=== PATIENT | male | born 1935 | race African-American/Black ===

== ENCOUNTER 2017-01-07 07:16 | Inpatient (IN) | payer OTHER, MEDICAID ==
--- NOTE | 2017-01-07 07:25 | DR.SOBA ---
HPI - Time Seen Time seen: 07:21 - Complaints Chief Complaint Doctors Comments: Patient reports that he is not feeling well can not explain what he means, just dont feel well. <LAKESHA WALSH - Last Filed: 01/07/17 08:10> PMH - PMH Past Medical History: Coronary Artery Disease, Hypertension, Dyslipidemia, Diabetes Past Surgical History: Yes Surgical History: CABG/Valve Surgery - Family History Family Medical History: Diabetes Mellitus, Cancer, [place], Hypertension - Social History Do you use any recreational Drugs:: No <LAKESHA WALSH - Last Filed: 01/07/17 08:10> ROS - Review of Systems Eyes: No Symptoms Reported ENTM: No Symptoms Reported Respiratoy: Short of Breath Cardiovascular: No Symptoms Reported Gastrointestinal/Abdominal: No Symptoms Reported Genitourinary: No Symptoms Reported Neurological: No Symptoms Reported Musculoskeletal: No Symptoms Reported Integumentary: No Symptoms Reported Hematologic/Lymphatic: No Symptoms Reported Endocrine: No Symptoms Reported Psychiatric: No Symptoms Reported All Other Systems: Reviewed and Negative <LAKESHA WALSH - Last Filed: 01/07/17 08:10> PE - General Limitations: No Limitations General Appearance: Alert, Anxious - Head Head Exam: Normal Inspection, Atraumatic - Eyes Eye exam: Normal Appearance, PERRL, EOMI - ENT ENT Exam: Normal Exam - Neck Neck Exam: Normal Inspection, Full ROM - Chest Chest Inspection: Normal Inspection - Respiratory Respiratory Exam: Normal Lung Sounds Bilat Respiratory Exam: Bilateral Clear to Auscultation - Cardiovascular Cardiovascular Exam: Regular Rate, Normal Rhythm, Systolic Murmur, +S2 - Abdominal Exam Abdominal Exam: Normal Inspection, Normal Bowel Sounds Abdominal Tenderness: negative: RUQ, RLQ, LUQ, LLQ, Epigastrium, Suprapubic, Diffuse, Mild, Moderate, Severe, Other - Extremities Extremities Exam: Normal Inspection - Back Back Exam: Normal Inspection, Full ROM - Neurologic Neurological Exam: Alert, Oriented X3, CN II-XII Intact - Psychiatric Psychiatric Exam: Normal Affect - Skin Skin Exam: Warm, Dry, Intact <LAKESHA WALSH - Last Filed: 01/07/17 08:10> Course - Consultation Called: 09:00 Call Returned: 09:50 Consultation Comments: case discussed admit to lower BP and diuresis. <ERIC ZHENG - Last Filed: 01/07/17 09:53> ROR - Labs Reviewed Result Diagrams: 01/07/17 07:48 01/07/17 07:48 - EKG Rate: 64 Rhythm: NSR, PVCs Block: RBBB Hypertrophy: LVH ST: Nonsp <MARCE,ERIC - Last Filed: 01/07/17 09:53> - Labs Reviewed Laboratory: WBC 9.1 X10^3/uL (3.6-10.0) 01/07/17 07:48 RBC 3.25 X10^6/uL (4.7-6.0) L 01/07/17 07:48 Hgb 9.8 g/dL (13.5-18.0) L 01/07/17 07:48 Hct 30.1 % (42.0-54.0) L 01/07/17 07:48 MCV 92.9 fL (80.0-100.0) 01/07/17 07:48 MCH 30.3 pg (27.0-34.0) 01/07/17 07:48 MCHC 32.6 g/dL (33.0-35.0) L 01/07/17 07:48 RDW 14.6 % (11.6-16.5) 01/07/17 07:48 Plt Count 145 X10^3/uL (150.0-450.0) L 01/07/17 07:48 MPV 9.4 fL (7.4-11.0) 01/07/17 07:48 Neut % 76.6 % (42.0-75.0) H 01/07/17 07:48 Lymph % 11.3 % (21.0-51.0) L 01/07/17 07:48 [place] % 8.5 % (0.0-13.0) 01/07/17 07:48 Eos % 3.0 % (0.9-2.9) H 01/07/17 07:48 Baso % 0.6 % (0.2-1.0) 01/07/17 07:48 Neut # 6.9 x10^3/uL (2.2-4.8) H 01/07/17 07:48 Lymph # 1.0 X10^3/uL (1.3-2.9) L 01/07/17 07:48 [place] # 0.8 x10^3/uL (0.3-0.8) 01/07/17 07:48 Eos # 0.3 x10^3/uL (0.0-0.2) H 01/07/17 07:48 Baso # 0.1 X10^3/uL (0.0-0.1) 01/07/17 07:48 Absolute Nucleated RBC 0.0 /100WBC 01/07/17 07:48 INR Target Range - 01/07/17 07:48 INR 1.05 (0.8-1.3) 01/07/17 07:48 PTT 28.9 SECONDS (22.9-36.5) 01/07/17 07:48 PTT Comment - 01/07/17 07:48 Sodium 143 mmol/L (136-145) 01/07/17 07:48 Corrected Sodium 144 mmol/L (136-145) 01/07/17 07:48 Potassium 3.8 mmol/L (3.5-5.1) 01/07/17 07:48 Chloride 107 mmol/L (98-107) 01/07/17 07:48 Carbon Dioxide 30.2 mmol/L (21-32) 01/07/17 07:48 BUN 20 mg/dL (7-18) H 01/07/17 07:48 Creatinine 1.45 mg/dL (0.70-1.30) H 01/07/17 07:48 Est GFR (MDRD) Af Amer 60 (>60) 01/07/17 07:48 Est GFR (MDRD) Non-Af 50 (>60) L 01/07/17 07:48 Glucose 162 mg/dL (65-99) H 01/07/17 07:48 Hemoglobin A1c 9.4 % (4.5-6.2) H 01/07/17 07:48 Calcium 9.0 mg/dL (8.5-10.1) 01/07/17 07:48 Corrected Calcium 10.0 mg/dL (8.5-10.1) 01/07/17 07:48 Phosphorus 3.5 mg/dL (2.6-4.7) 01/07/17 07:48 Magnesium 1.9 mg/dL (1.7-2.9) 01/07/17 07:48 Total Bilirubin 0.30 mg/dL (0.2-1.0) 01/07/17 07:48 AST 37 Units/L (15-37) 01/07/17 07:48 ALT 66 Units/L (12-78) 01/07/17 07:48 Alkaline Phosphatase 50 Units/L (46-116) 01/07/17 07:48 Creatine Kinase 154 Units/L (39-308) 01/07/17 07:48 CK-MB (CK-2) 3.2 ng/mL (0-4.0) 01/07/17 07:48 CK/CKMB % Calc 2.1 % (<4) 01/07/17 07:48 Troponin I 0.06 ng/mL (0-1.5) 01/07/17 07:48 B-Natriuretic Peptide 804 pg/mL (0-79) H* 01/07/17 07:48 Total Protein 6.7 g/dL (6.4-8.2) 01/07/17 07:48 Albumin 2.7 g/dL (3.4-5.0) L 01/07/17 07:48 Globulin 4.0 g/dL (2.5-4.5) 01/07/17 07:48 Albumin/Globulin Ratio 0.7 Ratio (1.1-2.1) L 01/07/17 07:48 (ERIC ZHENG) <LAKESHA WALSH - Last Filed: 01/07/17 08:10> <ERIC ZHENG - Last Filed: 01/07/17 09:53> - Diagnosis Discharge Problem: CHF (congestive heart failure) Qualifiers: Congestive heart failure type: unspecified congestive heart failure type Congestive heart failure chronicity: acute Qualified Code(s): I50.9 - Heart failure, unspecified - Discharge Plan Condition: Stable - Follow ups/Referrals Follow ups/Referrals: FRED CONRAD [Primary Care Provider] - 3 days - Instructions
[2017-01-07] MEDS ORDERED: CATAPRES TAB 0.2 MG PO ONE (07:29)
[2017-01-07] MEDS ORDERED: CATAPRES TAB 0.2 MG ONE (07:30)
--- NOTE | 2017-01-07 07:59 | RAD ---
HISTORY: Dyspnea Study: Chest two-view Comparison: October 13, 2016 Findings: The patient is status post median sternotomy and CABG. The heart is enlarged. Congestive heart failu re is present in the form of interstitial pulmonary edema. No alveolar edema, alveolar infiltrates o r pleural effusions are identified. The bony thorax is unremarkable with the exception of superior h umeral migration on the right suggestive of chronic rotator cuff disease. IMPRESSION: Cardiomegaly with congestive heart failure in the form of interstitial pulmonary edema Reported By:
[2017-01-07] MEDS ORDERED: LASIX IVP ONE ×2 (08:13→08:14)
[2017-01-07 08:15] LABS: MAGNESIUM 1.9 mg/dL (1.7-2.9); PHOSPHORUS 3.5 mg/dL (2.6-4.7)
[2017-01-07 08:16] LABS: HEMOGLOBIN A1C 9.4 % (4.5-6.2)
[2017-01-07 08:21] LABS: BASOPHILS # (AUTO) 0.1 X10^3/uL (0.0-0.1); BASOPHILS % (AUTO) 0.6 % (0.2-1.0); CARBON DIOXIDE 30.2 mmol/L (21-32); CREATININE 1.45 mg/dL (0.70-1.30); EOSINOPHILS # (AUTO) 0.3 x10^3/uL (0.0-0.2); HEMATOCRIT 30.1 % (42.0-54.0); HEMOGLOBIN 9.8 g/dL (13.5-18.0); LYMPHOCYTES % (AUTO) 11.3 % (21.0-51.0); MEAN CORPUSCULAR HEMOGLOBIN 30.3 pg (27.0-34.0); MEAN CORPUSCULAR HGB CONC 32.6 g/dL (33.0-35.0); MEAN CORPUSCULAR VOLUME 92.9 fL (80.0-100.0); MEAN PLATELET VOLUME 9.4 fL (7.4-11.0); MONOCYTES # (AUTO) 0.8 x10^3/uL (0.3-0.8); MONOCYTES % (AUTO) 8.5 % (0.0-13.0); NEUTROPHILS # (AUTO) 6.9 x10^3/uL (2.2-4.8); NEUTROPHILS % (AUTO) 76.6 % (42.0-75.0); PLATELET COUNT 145 X10^3/uL (150.0-450.0); RED BLOOD COUNT 3.25 X10^6/uL (4.7-6.0); RED CELL DISTRIBUTION WIDTH 14.6 % (11.6-16.5); TROPONIN I 0.06 ng/mL (0-1.5); WHITE BLOOD COUNT 9.1 X10^3/uL (3.6-10.0)
[2017-01-07 08:24] LABS: ALBUMIN 2.7 g/dL (3.4-5.0); CKMB % 2.1 % (<4); CREATINE KINASE MB 3.2 ng/mL (0-4.0); TOTAL PROTEIN 6.7 g/dL (6.4-8.2)
[2017-01-07] MEDS ORDERED: APRESOLINE TAB 25 MG PO ONE (09:47)
[2017-01-07] MEDS ORDERED: ULTRAM PO PRN (10:04)
[2017-01-07] MEDS ORDERED: [UNRECOGNIZED DRUG - OTHER] SC SCH (10:15)
[2017-01-07] MEDS: COREG TAB 25 MG PO SCH ×2 (11:39→21:25)
[2017-01-07] MEDS: PROCARDIA XL PO SCH (11:39)
[2017-01-07] MEDS ORDERED: [UNRECOGNIZED DRUG - OTHER] PO SCH (14:00)
[2017-01-07] MEDS: APRESOLINE TAB 25 MG PO SCH ×2 (14:35→21:26)
[2017-01-07 15:12] VITALS: BMI 25.7
[2017-01-07] MEDS: HumaLOG SC PRN ×2 (17:55→21:24)
[2017-01-07] MEDS: PROSCAR PO SCH (21:25)
[2017-01-07 22:22] LABS: CKMB % 1.7 % (<4); CREATINE KINASE MB 2.6 ng/mL (0-4.0); TROPONIN I 0.07 ng/mL (0-1.5)
[2017-01-08 05:27] LABS: ALBUMIN 2.4 g/dL (3.4-5.0); CALCIUM 8.9 mg/dL (8.5-10.1); COR CA(FOR HYPOALB) 10.2 mg/dL (8.5-10.1); CREATININE 1.52 mg/dL (0.70-1.30)
[2017-01-08] MEDS: APRESOLINE TAB 25 MG PO SCH ×3 (05:30→21:08)
[2017-01-08 05:37] LABS: BASOPHILS # (AUTO) 0.1 X10^3/uL (0.0-0.1); BASOPHILS % (AUTO) 0.8 % (0.2-1.0); EOSINOPHILS # (AUTO) 0.2 x10^3/uL (0.0-0.2); EOSINOPHILS % (AUTO) 2.7 % (0.9-2.9); HEMATOCRIT 26.7 % (42.0-54.0); HEMOGLOBIN 8.8 g/dL (13.5-18.0); LYMPHOCYTES # (AUTO) 1.2 X10^3/uL (1.3-2.9); LYMPHOCYTES % (AUTO) 14.6 % (21.0-51.0); MEAN CORPUSCULAR HEMOGLOBIN 30.3 pg (27.0-34.0); MEAN CORPUSCULAR HGB CONC 32.9 g/dL (33.0-35.0); MEAN CORPUSCULAR VOLUME 92.3 fL (80.0-100.0); MEAN PLATELET VOLUME 10.2 fL (7.4-11.0); MONOCYTES # (AUTO) 0.8 x10^3/uL (0.3-0.8); MONOCYTES % (AUTO) 10.1 % (0.0-13.0); NEUTROPHILS # (AUTO) 5.7 x10^3/uL (2.2-4.8); NEUTROPHILS % (AUTO) 71.8 % (42.0-75.0); PLATELET COUNT 137 X10^3/uL (150.0-450.0); RED BLOOD COUNT 2.89 X10^6/uL (4.7-6.0); RED CELL DISTRIBUTION WIDTH 14.3 % (11.6-16.5); WHITE BLOOD COUNT 7.9 X10^3/uL (3.6-10.0)
[2017-01-08] MEDS ORDERED: K-RIDER 10 MEQ/NS 100 ML 10 MEQ/100 ML BAG IV PRN (05:40)
[2017-01-08] MEDS ORDERED: K-LYTE EFFERVESCENT PO PRN (05:40)
[2017-01-08] MEDS ORDERED: POTASSIUM CHLORIDE LIQ 20 MEQ UDC PO PRN (05:40)
[2017-01-08] MEDS: HumaLOG SC PRN ×4 (05:52→21:10)
--- NOTE | 2017-01-08 06:24 | RAD ---
HISTORY: CHF, shortness of breath Study: Single-view chest, done portably Comparison: January 07, 2017 Findings: The cardiac monitoring electrodes are noted on the chest. There are changes of thoracotomy with medi an sternotomy sutures present. The trachea is midline. There is cardiomegaly with pulmonary vascular congestion. There is a pattern of CHF bilaterally, with aeration in both lungs has improved. A smal l perihilar focus of alveolar edema may be present. No pleural fluid or pneumothorax is seen. IMPRESSION: Improvement in the CHF pattern. Reported By:
[2017-01-08] MEDS: K-DUR TAB 20 MEQ PO PRN (06:33)
[2017-01-08] MEDS ORDERED: [UNRECOGNIZED DRUG - OTHER] PO SCH (09:00)
[2017-01-08] MEDS: COREG TAB 25 MG PO SCH ×2 (10:00→21:08)
[2017-01-08] MEDS: ASPIRIN EC 81 MG PO SCH (10:01)
[2017-01-08] MEDS: CLARITIN PO SCH (10:01)
[2017-01-08] MEDS: PROCARDIA XL PO SCH (10:01)
[2017-01-08] MEDS: LANTUS SC SCH (10:01)
[2017-01-08] MEDS ORDERED: MORPHINE SULFATE INJ 2 MG IVP PRN (10:32)
[2017-01-08] MEDS: LASIX IVP SCH ×2 (11:27→21:11)
--- NOTE | 2017-01-08 14:23 | DR.H&P ---
H&P - History & Physical for Day of: H&P Date: 01/07/17 - Chief Complaint Chief Complaint: SHORTNESS OF BREATH - Allergies Allergies/Adverse Reactions: Allergies Allergy/AdvReac Type Severity Reaction Status Date / Time Lisinopril Allergy Verified 01/07/17 07:17 - History of Present Illness History of Present Illness: IS A 81 YEAR OLD PATIENT OF WHO PRESENTED TO THE ER WITH COMPLAINTS OF NOT FEELING WELL. PATIENT REPORTED SHORTNESS OF BREATH AND IS NOTED WITH LABORED RESPIRATIONS ON ARRIVAL TO ER. MILD RESPIRATORY DISTRESS IS NOTED. ON AUSCULTATION, LUNG BASES ARE NOTED WITH RHONCHI AND WHEEZING. PATIENT HAS NO HISTORY OF HEART FAILURE. IN ER, LABS, XRAY , AND EKGS WERE OBTAIN AND REPORT THE FOLLOWING: CBC WNL EXCEPT HGB/HCT 9.8/ 30.1. CMP WNL EXCEPT BUN/CREAT 20/1.45, GLUCOSE 162, HGB 9.4, BNP 804, ALBUMIN 2.7, PT/INR WNL. CHEST XRAY REPORTS CARDIOMEGALY WITH CHR IN THE FOR OF INTERSTITIAL PULMONARY EDEMA. EKG REPORTS SINUS RHYTHM WITH RATE OF 64. WE WILL ADMIT PATIENT FOR FURTHER EVALUATION AND TREATMENT. WE WILL START PATIENT ON IV LASIX, FLUID RESTRICTION, DAILY WEIGHT, STRICT I&O, AND MONITOR LABS AND XRAYS. - Past Medical History Past Medical History: Arthritis, Coronary Artery Disease, Diabetes, Dyslipidemia , GERD, Hypertension Additional Medical History: Prostate Cancer, Bronchitis, Constipation - Past Surgical History Surgical History: CABG/Valve Surgery - Family History Family Medical History: Diabetes Mellitus, Cancer, [place], Hypertension - Social History Does patient currently use any type of tobacco product: No Have you used tobacco products in the last 12 months: No Type of Tobacco Use: Cigarettes How many years tobacco product used: 30 Does any household member use tobacco: No Alcohol Use: Occasionally Drug Use: None - Medications Home Medications: Aspirin [Aspirin Adult Low Dose] 1 tab PO DAILY 01/07/17 [History Confirmed 05/18] Hydralazine HCl [Hydralazine HCl 50 mg] 1 tab PO TID 01/07/17 [History Confirmed 01/07/17] Insulin Glargine (Lantus) [LANTUS INSULIN 10 ML VIAL *] 30 units SC DAILY [History Confirmed 01/07/17] Insulin Lispro (Human) [Humalog] 1 unit SC .MILTONLINATHANIELSCALE 01/07/17 [History Confirmed 01/07/17] Tramadol HCl [ULTRAM 50 MG *] 1 tab PO TID PRN 01/07/17 [History Confirmed 01/07] - Review of Systems Constitutional: Weakness, Malaise Eyes: denies: Pain, Vision Change, Conjunctivae Inflammation, Eyelid Inflammation, Redness, Other ENT: denies: Ear Pain, Ear Discharge, Nose Pain, Nose Discharge, Nose Congestion , Mouth Pain, Mouth Swelling, Throat Pain, Throat Swelling, Other Respiratory: Shortness of Breath, SOB with Excertion, Wheezing Cardiovascular: Edema. denies: Chest Pain, See HPI, Palpitations, Orthopnea, Paroxysmal Noc. Dyspnea, Light Headedness, Other Gastrointestinal: No Symptoms Reported Genitourinary: No Symptoms Reported. denies: See HPI, Dysuria, Frequency, Incontinence, Hematuria, Retention, Other Musculoskeletal: No Symptoms Reported. denies: Shoulder Pain, Arm Pain, Back Pain, Hand Pain, Leg Pain, Foot Pain, Neck Pain, Other Skin: No Symptoms Reported. denies: See HPI, Rash, Lesions, Jaundice, Bruising , Wound, Ecchymosis, Other Neurological: Weakness. denies: No Symptoms Reported, See HPI, Numbness, Incoordination, Change in Speech, Confusion, Seizures, Other - Physical Exam Vital Signs: Temperature 98.5 F Pulse Rate [Left Brachial] 72 Pulse Rate 78 Respiratory Rate 20 Blood Pressure [Right Arm] 193/88 Blood Pressure [Left Arm] 184/62 O2 Sat by Pulse Oximetry 96 Oriented: Normal, Time, Person, Place. negative: Not Oriented, Unable to test, Other Eyes: Normal. negative: Blurred Vision, Diplopia, Discharge, Pain, Redness, Photophobia, Other Ear: Normal. negative: Right, Left, Swelling, Ecchymosis, Hemotypanum, Abrasion , Laceration Nose: Normal. negative: Injected, Discharge, Blood, Other Throat: Normal. negative: Tonsillar Hypertrophy, Red, Exudate, Dry, Other Respiratory: Rhonchi Throughout, Wheezes Throughout Cardiovascular: Normal. negative: Tachycardia, Bradycardia, Irregular, S3, S4, Systolic, Diastolic, Murmur, Edema, Other : Normal. negative: Dysuria, Hematuria, Frequency, Discharge, Testicular Pain , Bleeding, , Other Auscultation: Bowel Sounds: Normal. negative: Bruit, Absent, Increased, Decreased, High Pitched, Other Palpation: Normal. negative: Spleen Enlarged, Liver Enlarged, Mass Pulsatile, Other Tenderness: Normal. negative: Diffuse, RUQ, RLQ, LUQ, LLQ, Epigastric, Periumbilical, Suprapubic, Mild, Moderate, Severe, Rebound, Guarding, Rigidity, Other Skin: Normal. negative: Decreased Turgur, Rash, Papular, Macular, Maculopapular , Vesicular, Pustular, Petechial, Red, Tender, Hot, Diaphoresis, Wound, Bruising , Ecchymosis, Other Musculoskeletal: Swelling, Instability Psychiatric: Normal. negative: Anxiety, Depression, Agitation, Other Mood Description: Calm, Appropriate. negative: Angry, Apathetic, Depressed, Fearful, Flat, Happy, Hostile, Sad, Suspicious, Withdrawn, Anxious, Labile Affect: Normal. negative: Angry, Anxious, Depressed, Flat, Hysterical, Quiet, Violent Speech Pattern: Clear, Appropriate - Assessment/Plan (1) CHF (congestive heart failure) Qualifiers: Congestive heart failure type: unspecified congestive heart failure type Congestive heart failure chronicity: acute Qualified Code(s): I50.9 - Heart failure, unspecified Status: Acute Plan: ADMIT, START ON IV LASIX, FLUID RESTRICTION, DAILY WEIGHT, STRICT I&O, AND MONITOR LABS AND XRAYS. (2) Hyperlipidemia Qualifiers: Hyperlipidemia type: H Status: Acute (3) Hypertension Qualifiers: Hypertension type: H Status: Acute (4) Diabetes mellitus Qualifiers: Diabetes mellitus type: D Diabetes mellitus complication status: D Diabetes mellitus complication detail: D Diabetic retinopathy severity: D Proliferative retinopathy type: P Diabetes mellitus macular edema: D Diabetes mellitus skilled nursing insulin use: D Laterality: L Chronic kidney disease stage: C Status: Chronic (5) Coronary artery disease Qualifiers: Coronary Disease-Associated Artery/Lesion type: C [place] vs. transplanted heart: N Associated angina: A Status: Acute (6) GERD (gastroesophageal reflux disease) Qualifiers: Esophagitis presence: E Status: Acute
--- NOTE | 2017-01-08 16:11 | PCM.PROG ---
Progress Note - Progress Note for Day of Date: 01/08/17 - Subjective Subjective: PATIENT CONTINUES WITH SHORTNESS OF BREATH AT REST. PATIENT HAS RECEIVED TWO DOSES OF IV LASIX YESTERDAY, ALONG WITH FLUID RESTRICTION, STRICT I &O, AND DAILY WEIGHT. PATIENT REPORTS HE DOESN'T FEEL WELL THIS MORNING. HE CONTINUES ON SUPPLEMENTAL OXYGEN. ON AUSCULTATION, LUNGS ARE NOTED WITH WHEEZING THROUGHOUT. CBC WNL EXCEPT: H/H 8.8/26.7, PLT COUNT 137. CMP WNL EXCEPT: POTASSIUM 3.3, CHL 109, BUN/CREAT 24/1.52, GFR 47, GLUCOSE 187, TOT PROTEIN 6.0, ALBUMIN 2.4. CHEST XRAY REPORTS IMPROVEMENT IN CHF PATTERN. AN ECHO IS SCHEDULED FOR TODAY. EKG: SINUS RHYTHM, RBBB, RATE 87. WE WILL START ALBUMIN IV, POTASSIUM PROTOCOL, AND BIPAP. WE WILL CONTINUE IV LASIX AND FOLLOW UP IN AM WITH LABS AND CHEST XRAY. - Past Medical Family Social History Past Med/Fam/Surg Hx: No changes since H&P Allergies: Allergies Lisinopril Allergy (Verified 01/07/17 07:17) - Review of Systems ROS: No change since H&P - Vital Signs and I&O's Vital Signs: Temperature 98.5 F Pulse Rate [Left Brachial] 72 Pulse Rate 78 Respiratory Rate 20 Blood Pressure [Right Arm] 193/88 Blood Pressure [Left Arm] 184/62 O2 Sat by Pulse Oximetry 96 Intake and Output: Intake & Output 01/06/17 01/07/17 01/08/17 01/09/17 11:59 11:59 11:59 11:59 Intake Total 500 Output Total 425 Balance 75 - Physical Exam Oriented: Normal, Time, Person, Place. negative: Not Oriented, Unable to test, Other Eyes: Normal. negative: Blurred Vision, Diplopia, Discharge, Pain, Redness, Photophobia, Other Ear: Normal. negative: Right, Left, Swelling, Ecchymosis, Hemotypanum, Abrasion , Laceration Nose: Normal. negative: Injected, Discharge, Blood, Other Throat: Normal. negative: Tonsillar Hypertrophy, Red, Exudate, Dry, Other Respiratory: Generalized, Wheezes Cardiovascular: Normal. negative: Tachycardia, Bradycardia, Irregular, S3, S4, Systolic, Diastolic, Murmur, Edema, Other : Normal. negative: Dysuria, Hematuria, Frequency, Discharge, Testicular Pain , Bleeding, , Other Auscultation: Bowel Sounds: Normal. negative: Bruit, Absent, Increased, Decreased, High Pitched, Other Palpation: Normal. negative: Spleen Enlarged, Liver Enlarged, Mass Pulsatile Tenderness: Normal. negative: Diffuse, RUQ, RLQ, LUQ, LLQ, Epigastric, Periumbilical, Suprapubic, Mild, Moderate, Severe, Rebound, Guarding, Rigidity, Other Skin: Normal. negative: Decreased Turgur, Rash, Papular, Macular, Maculopapular , Vesicular, Pustular, Petechial, Red, Tender, Hot, Diaphoresis, Wound, Bruising , Ecchymosis, Other Musculoskeletal: Swelling, Instability Psychiatric: Normal Mood Description: Calm, Appropriate Affect: Normal Speech Pattern: Clear, Appropriate - Laboratory and Diagnostics Result Diagrams: 01/08/17 04:00 01/08/17 08:05 Labs: Laboratory WBC 7.9 X10^3/uL (3.6-10.0) 01/08/17 04:00 RBC 2.89 X10^6/uL (4.7-6.0) L 01/08/17 04:00 Hgb 8.8 g/dL (13.5-18.0) L 01/08/17 04:00 Hct 26.7 % (42.0-54.0) L 01/08/17 04:00 MCV 92.3 fL (80.0-100.0) 01/08/17 04:00 MCH 30.3 pg (27.0-34.0) 01/08/17 04:00 MCHC 32.9 g/dL (33.0-35.0) L 01/08/17 04:00 RDW 14.3 % (11.6-16.5) 01/08/17 04:00 Plt Count 137 X10^3/uL (150.0-450.0) L 01/08/17 04:00 MPV 10.2 fL (7.4-11.0) 01/08/17 04:00 Neut % 71.8 % (42.0-75.0) 01/08/17 04:00 Lymph % 14.6 % (21.0-51.0) L 01/08/17 04:00 [place] % 10.1 % (0.0-13.0) 01/08/17 04:00 Eos % 2.7 % (0.9-2.9) 01/08/17 04:00 Baso % 0.8 % (0.2-1.0) 01/08/17 04:00 Neut # 5.7 x10^3/uL (2.2-4.8) H 01/08/17 04:00 Lymph # 1.2 X10^3/uL (1.3-2.9) L 01/08/17 04:00 [place] # 0.8 x10^3/uL (0.3-0.8) 01/08/17 04:00 Eos # 0.2 x10^3/uL (0.0-0.2) 01/08/17 04:00 Baso # 0.1 X10^3/uL (0.0-0.1) 01/08/17 04:00 Absolute Nucleated RBC 0.0 /100WBC 01/08/17 04:00 INR Target Range - 01/07/17 07:48 INR 1.05 (0.8-1.3) 01/07/17 07:48 PTT 28.9 SECONDS (22.9-36.5) 01/07/17 07:48 PTT Comment - 01/07/17 07:48 Sodium 145 mmol/L (136-145) 01/08/17 04:00 Corrected Sodium 147 mmol/L (136-145) H 01/08/17 04:00 Potassium 3.7 mmol/L (3.5-5.1) 01/08/17 08:05 Chloride 109 mmol/L (98-107) H 01/08/17 04:00 Carbon Dioxide 28.0 mmol/L (21-32) 01/08/17 04:00 BUN 24 mg/dL (7-18) H 01/08/17 04:00 Creatinine 1.52 mg/dL (0.70-1.30) H 01/08/17 04:00 Est GFR (MDRD) Af Amer 57 (>60) L 01/08/17 04:00 Est GFR (MDRD) Non-Af 47 (>60) L 01/08/17 04:00 Glucose 187 mg/dL (65-99) H 01/08/17 04:00 Hemoglobin A1c 9.4 % (4.5-6.2) H 01/07/17 07:48 Calcium 8.9 mg/dL (8.5-10.1) 01/08/17 04:00 Corrected Calcium 10.2 mg/dL (8.5-10.1) H 01/08/17 04:00 Phosphorus 3.5 mg/dL (2.6-4.7) 01/07/17 07:48 Magnesium 1.9 mg/dL (1.7-2.9) 01/07/17 07:48 Total Bilirubin 0.20 mg/dL (0.2-1.0) 01/08/17 04:00 AST 34 Units/L (15-37) 01/08/17 04:00 ALT 61 Units/L (12-78) 01/08/17 04:00 Alkaline Phosphatase 45 Units/L (46-116) L 01/08/17 04:00 Creatine Kinase 155 Units/L (39-308) 01/07/17 21:43 CK-MB (CK-2) 2.6 ng/mL (0-4.0) 01/07/17 21:43 CK/CKMB % Calc 1.7 % (<4) 01/07/17 21:43 Troponin I 0.07 ng/mL (0-1.5) 01/07/17 21:43 B-Natriuretic Peptide 804 pg/mL (0-79) H* 01/07/17 07:48 Total Protein 6.0 g/dL (6.4-8.2) L 01/08/17 04:00 Albumin 2.4 g/dL (3.4-5.0) L 01/08/17 04:00 Globulin 3.6 g/dL (2.5-4.5) 01/08/17 04:00 Albumin/Globulin Ratio 0.7 Ratio (1.1-2.1) L 01/08/17 04:00 - Plan (1) CHF (congestive heart failure) Status: Acute Qualifiers: Congestive heart failure type: unspecified congestive heart failure type Congestive heart failure chronicity: acute Qualified Code(s): I50.9 - Heart failure, unspecified Plan: START BIPAP, CONTINUE IV LASIX, FLUID RESTRICTION, DAILY WEIGHT, STRICT I& O, AND MONITOR LABS AND XRAYS. (2) Hypertension Status: Chronic Qualifiers: Hypertension type: essential hypertension Qualified Code(s): I10 - Essential (primary) hypertension (3) Hyperlipidemia Status: Chronic Qualifiers: Hyperlipidemia type: mixed hyperlipidemia Qualified Code(s): E78.2 - Mixed hyperlipidemia (4) Diabetes mellitus Status: Chronic Qualifiers: Diabetes mellitus type: type 2 Diabetes mellitus complication status: without complication Diabetes mellitus complication detail: D Diabetic retinopathy severity: D Proliferative retinopathy type: P Diabetes mellitus macular edema: D Diabetes mellitus long-term insulin use: with long-term use Laterality: L Chronic kidney disease stage: C Qualified Code(s): E11.9 - Type 2 diabetes mellitus without complications; Z79.4 - detention (current) use of insulin (5) Coronary artery disease Status: Chronic Qualifiers: Coronary Disease-Associated Artery/Lesion type: C [place] vs. transplanted heart: N Associated angina: A (6) GERD (gastroesophageal reflux disease) Status: Chronic Qualifiers: Esophagitis presence: esophagitis presence not specified Qualified Code(s) : K21.9 - Gastro-esophageal reflux disease without esophagitis
[2017-01-08] MEDS: ALBUMIN HUMAN 25%- 100ML 100 ML IV SCH (17:34)
[2017-01-08 19:16] LABS: CKMB % 1.4 % (<4); TROPONIN I 0.05 ng/mL (0-1.5)
[2017-01-08] MEDS: PROSCAR PO SCH (21:08)
[2017-01-08] MEDS: SNACK - Diabetic Appropriate PO SCH (21:11)
[2017-01-09 00:49] LABS: CKMB % 1.5 % (<4); CREATINE KINASE MB 1.9 ng/mL (0-4.0); TROPONIN I 0.06 ng/mL (0-1.5)
[2017-01-09] MEDS: APRESOLINE TAB 25 MG PO SCH ×3 (05:54→21:29)
[2017-01-09 06:00] LABS: ASPARTATE AMINO TRANSFERASE < 6 Units/L (15-37); CREATINE KINASE MB < 1.0 ng/mL (0-4.0)
[2017-01-09 06:19] LABS: ALANINE AMINOTRANSFERASE 62 Units/L (12-78); ALBUMIN 2.7 g/dL (3.4-5.0); ALKALINE PHOSPHATASE 46 Units/L (46-116); BLOOD UREA NITROGEN 21 mg/dL (7-18); CALCIUM 9.2 mg/dL (8.5-10.1); CARBON DIOXIDE 28.7 mmol/L (21-32); CHLORIDE 109 mmol/L (98-107); CKMB % 0.9 % (<4); COR CA(FOR HYPOALB) 10.2 mg/dL (8.5-10.1); CREATINE KINASE 111 Units/L (39-308); SODIUM 147 mmol/L (136-145); TOTAL PROTEIN 6.3 g/dL (6.4-8.2); eGFR BLACK RACES 58 (>60); eGFR NON BLACK RACES 48 (>60)
[2017-01-09 06:24] LABS: BASOPHILS % (AUTO) 0.7 % (0.2-1.0); EOSINOPHILS # (AUTO) 0.2 x10^3/uL (0.0-0.2); EOSINOPHILS % (AUTO) 3.1 % (0.9-2.9); HEMATOCRIT 27.1 % (42.0-54.0); HEMOGLOBIN 9.1 g/dL (13.5-18.0); LYMPHOCYTES # (AUTO) 1.1 X10^3/uL (1.3-2.9); LYMPHOCYTES % (AUTO) 16.7 % (21.0-51.0); MEAN CORPUSCULAR HEMOGLOBIN 30.8 pg (27.0-34.0); MEAN CORPUSCULAR HGB CONC 33.5 g/dL (33.0-35.0); MEAN CORPUSCULAR VOLUME 91.9 fL (80.0-100.0); MEAN PLATELET VOLUME 9.9 fL (7.4-11.0); MONOCYTES # (AUTO) 0.6 x10^3/uL (0.3-0.8); MONOCYTES % (AUTO) 9.2 % (0.0-13.0); NEUTROPHILS # (AUTO) 4.8 x10^3/uL (2.2-4.8); NEUTROPHILS % (AUTO) 70.3 % (42.0-75.0); PLATELET COUNT 149 X10^3/uL (150.0-450.0); RED BLOOD COUNT 2.95 X10^6/uL (4.7-6.0); RED CELL DISTRIBUTION WIDTH 14.4 % (11.6-16.5); WHITE BLOOD COUNT 6.8 X10^3/uL (3.6-10.0)
[2017-01-09 06:49] LABS: GLUCOSE 109 mg/dL (65-99)
--- NOTE | 2017-01-09 07:25 | RAD ---
HISTORY: CHF, shortness of breath Study: Single-view chest, done portably Comparison: January 08, 2017 Findings: There are again changes of coronary artery bypass surgery with median sternotomy sutures, metallic m arkers and metallic sutures indicating coronary artery bypass grafts. Pulmonary vascular congestion and signs of CHF are again present, although improved. A small right perihilar focus of alveolar francisco ma is present. No pleural fluid is seen. Osseous structures are intact. IMPRESSION: Slight further improvement in the CHF/edema pattern. Reported By:
[2017-01-09] MEDS: PROCARDIA XL PO SCH (09:06)
[2017-01-09] MEDS: ALBUMIN HUMAN 25%- 100ML 100 ML IV SCH (09:06)
[2017-01-09] MEDS: COREG TAB 25 MG PO SCH ×2 (09:07→21:29)
[2017-01-09] MEDS: ASPIRIN EC 81 MG PO SCH (09:07)
[2017-01-09] MEDS: K-DUR TAB 20 MEQ PO PRN ×2 (09:07→13:15)
[2017-01-09] MEDS: LANTUS SC SCH (09:07)
[2017-01-09] MEDS: CLARITIN PO SCH (09:07)
[2017-01-09] MEDS: LASIX IVP SCH (10:56)
[2017-01-09] MEDS: HumaLOG SC PRN ×3 (13:15→21:30)
[2017-01-09] MEDS: SNACK - Diabetic Appropriate PO SCH (20:00)
[2017-01-09] MEDS: PROSCAR PO SCH (21:30)
--- NOTE | 2017-01-10 06:10 | RAD ---
HISTORY: Follow up congestive heart failure Study: Chest one view Comparison: January 09, 2017 Findings: The patient is status post median sternotomy. The heart is enlarged. Mild residual pulmonary venous congestion is present. However there is continued improvement in the picture of congestive heart fidelia lure. No acute alveolar infiltrates are identified. No definite pleural effusions are identified. [place] bsegmental atelectasis abuts the minor fissure on the right. The bony thorax is unremarkable. IMPRESSION: Cardiomegaly with continued improvement in congestive heart failure now with mild residual pulmonary venous congestion present. Reported By:
[2017-01-10 06:16] LABS: BASOPHILS # (AUTO) 0.1 X10^3/uL (0.0-0.1); BASOPHILS % (AUTO) 0.8 % (0.2-1.0); EOSINOPHILS # (AUTO) 0.2 x10^3/uL (0.0-0.2); EOSINOPHILS % (AUTO) 2.9 % (0.9-2.9); HEMATOCRIT 26.4 % (42.0-54.0); HEMOGLOBIN 8.9 g/dL (13.5-18.0); LYMPHOCYTES # (AUTO) 1.1 X10^3/uL (1.3-2.9); LYMPHOCYTES % (AUTO) 16.5 % (21.0-51.0); MEAN CORPUSCULAR HEMOGLOBIN 30.8 pg (27.0-34.0); MEAN CORPUSCULAR HGB CONC 33.6 g/dL (33.0-35.0); MEAN CORPUSCULAR VOLUME 91.7 fL (80.0-100.0); MEAN PLATELET VOLUME 9.8 fL (7.4-11.0); MONOCYTES # (AUTO) 0.6 x10^3/uL (0.3-0.8); MONOCYTES % (AUTO) 8.6 % (0.0-13.0); NEUTROPHILS # (AUTO) 4.6 x10^3/uL (2.2-4.8); NEUTROPHILS % (AUTO) 71.2 % (42.0-75.0); PLATELET COUNT 150 X10^3/uL (150.0-450.0); RED BLOOD COUNT 2.88 X10^6/uL (4.7-6.0); RED CELL DISTRIBUTION WIDTH 14.2 % (11.6-16.5); WHITE BLOOD COUNT 6.5 X10^3/uL (3.6-10.0)
[2017-01-10] MEDS: APRESOLINE TAB 25 MG PO SCH ×2 (06:25→12:59)
[2017-01-10 06:36] LABS: ALANINE AMINOTRANSFERASE 54 Units/L (12-78); ALBUMIN 2.9 g/dL (3.4-5.0); ALKALINE PHOSPHATASE 48 Units/L (46-116); ASPARTATE AMINO TRANSFERASE 28 Units/L (15-37); BLOOD UREA NITROGEN 22 mg/dL (7-18); CALCIUM 9.2 mg/dL (8.5-10.1); CARBON DIOXIDE 30.5 mmol/L (21-32); CHLORIDE 109 mmol/L (98-107); COR CA(FOR HYPOALB) 10.1 mg/dL (8.5-10.1); CREATININE 1.39 mg/dL (0.70-1.30); GLUCOSE 87 mg/dL (65-99); SODIUM 146 mmol/L (136-145); TOTAL PROTEIN 6.3 g/dL (6.4-8.2); eGFR BLACK RACES > 60 (>60); eGFR NON BLACK RACES 52 (>60)
[2017-01-10] MEDS: PROCARDIA XL PO SCH (09:50)
[2017-01-10] MEDS: COREG TAB 25 MG PO SCH (09:50)
[2017-01-10] MEDS: ASPIRIN EC 81 MG PO SCH (09:50)
[2017-01-10] MEDS: CLARITIN PO SCH (09:50)
[2017-01-10] MEDS: K-DUR TAB 20 MEQ PO PRN (09:50)
[2017-01-10] MEDS: ALBUMIN HUMAN 25%- 100ML 100 ML IV SCH (09:50)
[2017-01-10] MEDS: LANTUS SC SCH (09:51)
[2017-01-10] MEDS: HumaLOG SC PRN (12:57)
[2017-01-10] MEDS ORDERED: MILK OF MAGNESIA PO SCH (13:00)
[2017-01-10 13:30] LABS: ABG BASE EXCESS 7.4 mmol/L (-2.0-2.0)
[2017-01-10 13:31] LABS: ABG ALLEN TEST POS; ABG HCO3 31.2 mmol/L (22-26)
[2017-01-10 14:44] VITALS: BP 181/90
[2017-01-10] MEDS ORDERED: COLACE CAP 100 MG PO SCH (21:00)
[2017-01-11] MEDS ORDERED: MILK OF MAGNESIA PO SCH (09:00)
== END 2017-01-10 15:35 | disposition home or self-care (01) | DRG 293 ==
LOC: ER 07:26 → EDBD 10:05 → MED/SURG 10:05 → OBSVTOIN 01-09 10:00
PROVIDERS: ADMIT Internal Medicine; ATTEND Internal Medicine
DX: I50.9 Heart failure, unspecified (principal); I25.10 Atherosclerotic heart disease of native coronary artery without angina pectoris; I10 Essential (primary) hypertension; E78.2 Mixed hyperlipidemia; R06.02 Shortness of breath; R06.00 Dyspnea, unspecified; K21.9 Gastro-esophageal reflux disease without esophagitis; Z79.4 Long term (current) use of insulin; E11.65 Type 2 diabetes mellitus with hyperglycemia; R94.4 Abnormal results of kidney function studies
CPT/HCPCS: 36415; 36600; 71010; 71020; 80053; 82550; 82553; 82803; 83036; 83735; 83880; 84100; 84132; 84484; 85025; 85610; 85730; 93005; 93010; 93306; 94660; 94760; 96365; 96374; 99284; A4222; A4618; A7030; G8978; G8979; P9047; S0138; G0378; J1815; J1817; J1940

== ENCOUNTER → 2017-01-15 | Outpatient (CLI) | payer OTHER, MEDICAID ==
[2017-01-10 14:44] VITALS: BP 181/90
--- NOTE | 2017-01-15 12:25 | RAD ---
HISTORY: Chest tightness, shortness of breath Study: Chest two-view Comparison: January 10, 2017 Findings: the patient is status post median sternotomy and CABG. The heart is enlarged. No definite congestiv e heart failure is identified. No acute alveolar infiltrates or pleural effusions are identified. Th e lungs are hyperinflated. The bony thorax is unremarkable. IMPRESSION: Cardiomegaly without congestive heart failure Lungs hyperinflated but clear, consistent with COPD Reported By:
[2017-01-15 13:14] LABS: CALCIUM 9.3 mg/dL (8.5-10.1); CARBON DIOXIDE 29.4 mmol/L (21-32); COR CA(FOR HYPOALB) 10.1 mg/dL (8.5-10.1); CREATININE 1.55 mg/dL (0.70-1.30); TOTAL PROTEIN 6.7 g/dL (6.4-8.2)
== END | disposition home or self-care (01) | DRG 204 ==
LOC: RAD 12:01
PROVIDERS: ATTEND Physician Assistant Medical
DX: R06.02 Shortness of breath (principal); E87.79 Other fluid overload
CPT/HCPCS: 36415; 71020; 80053; 83880

== ENCOUNTER → 2017-03-20 | Outpatient (CLI) | payer MEDICAID, OTHER ==
[2017-03-20 10:01] LABS: BASOPHILS % (AUTO) 0.9 % (0.2-1.0); EOSINOPHILS # (AUTO) 0.2 x10^3/uL (0.0-0.2); EOSINOPHILS % (AUTO) 3.5 % (0.9-2.9); HEMATOCRIT 26.9 % (42.0-54.0); LYMPHOCYTES # (AUTO) 1.1 X10^3/uL (1.3-2.9); LYMPHOCYTES % (AUTO) 21.4 % (21.0-51.0); MEAN CORPUSCULAR HEMOGLOBIN 29.4 pg (27.0-34.0); MEAN CORPUSCULAR HGB CONC 33.3 g/dL (33.0-35.0); MEAN CORPUSCULAR VOLUME 88.6 fL (80.0-100.0); MEAN PLATELET VOLUME 8.8 fL (7.4-11.0); MONOCYTES # (AUTO) 0.6 x10^3/uL (0.3-0.8); MONOCYTES % (AUTO) 11.7 % (0.0-13.0); NEUTROPHILS # (AUTO) 3.3 x10^3/uL (2.2-4.8); NEUTROPHILS % (AUTO) 62.5 % (42.0-75.0); PLATELET COUNT 150 X10^3/uL (150.0-450.0); RED BLOOD COUNT 3.04 X10^6/uL (4.7-6.0); RED CELL DISTRIBUTION WIDTH 15.4 % (11.6-16.5); RETICULOCYTE % 1.68 % (0.8-2.2); WHITE BLOOD COUNT 5.3 X10^3/uL (3.6-10.0)
== END ==
LOC: LAB 09:02
PROVIDERS: ATTEND Nurse Practitioner Family
DX: I10 Essential (primary) hypertension (principal); I25.10 Atherosclerotic heart disease of native coronary artery without angina pectoris; D50.8 Other iron deficiency anemias; R53.83 Other fatigue
CPT/HCPCS: 36415; 82607; 82728; 82746; 83540; 83550; 85025; 85045

== ENCOUNTER → 2017-03-25 | Outpatient (CLI) | payer OTHER | LOC: LAB 10:19 | PROVIDERS: ATTEND Physician Assistant Medical | DX: I10 Essential (primary) hypertension (principal); I25.10 Atherosclerotic heart disease of native coronary artery without angina pectoris; D50.8 Other iron deficiency anemias | CPT/HCPCS: 87045; 87427; 87899 ==

== ENCOUNTER 2017-05-13 06:40 | Inpatient (IN) | payer OTHER, MEDICAID ==
--- NOTE | 2017-05-13 07:41 | RAD ---
HISTORY: Shortness of breath Study: Single-view chest, done portably Comparison: January 15, 2017 Findings: There again changes of coronary artery bypass surgery with median sternotomy sutures. The trachea is midline. There is cardiomegaly with pulmonary vascular congestion, signs of CHF and pulmonary interst itial edema bilaterally. Early alveolar edema may be present in the right lung base. No pleural effus ion or pneumothorax is seen. Osseous structures are intact. IMPRESSION: Pulmonary edema pattern. This is likely on a cardiogenic basis. Reported By:
--- NOTE | 2017-05-13 07:55 | DR.GENAD ---
HPI - PCP Primary Care Physician: jayden - Complaint/Symptoms Chief Complaint Doctors Comments: Patient presented to the ED with complaint of SOB this AM. He had been in his usual state of health until this AM. He denies , orthopnea, PND and his activity has not decrease. Chief Complaint:: short of breath - Source History Provided: Patient, Family Member - Mode of Arrival Mode of Arrival: Ambulatory - Timing Onset of Chief Complaint: 05/13/17 <LAKESHA WALSH - Last Filed: 05/13/17 07:52> PMH - PMH Past Medical History: Yes Past Medical History: Arthritis, Coronary Artery Disease, Diabetes, Dyslipidemia , GERD, Hypertension Past Surgical History: Yes Surgical History: CABG/Valve Surgery - Family History History of Family Medical Conditions: Yes Family Medical History: Diabetes Mellitus, Cancer, [place], Hypertension - Social History Does patient currently use any type of tobacco product: No Have you used tobacco products in the last 12 months: No Type of Tobacco Use: Cigarettes Does any household member use tobacco: No Alcohol Use: None Do you use any recreational Drugs:: No Lives With: Family Lives Where: Home - infectious screening In the last 2 months have you had wt loss of >10#?: NO Have you had fever, night sweats or hemotysis?: No Have you traveled outside the country in the last 6 months?: No Isolation: Standard <LAKESHA WALSH - Last Filed: 05/13/17 07:52> ROS - Review of Systems Eyes: No Symptoms Reported ENTM: No Symptoms Reported Respiratoy: No Symptoms Reported Cardiovascular: No Symptoms Reported Gastrointestinal/Abdominal: No Symptoms Reported Genitourinary: No Symptoms Reported Neurological: No Symptoms Reported Musculoskeletal: No Symptoms Reported Integumentary: No Symptoms Reported Hematologic/Lymphatic: No Symptoms Reported Endocrine: No Symptoms Reported Psychiatric: No Symptoms Reported All Other Systems: Reviewed and Negative <LAKESHA WALSH - Last Filed: 05/13/17 07:52> PE - General General Appearance: Alert, In No Apparent Distress - Head Head Exam: Normal Inspection, Atraumatic - Eyes Eye exam: Normal Appearance, PERRL, EOMI - ENT ENT Exam: Normal Exam External Ear Exam: Normal External Inspection TM/Canal Exam: Bilateral Normal Nose Exam: Normal Nose Exam Mouth Exam: Normal Inspection Throat Exam: Normal Inspection - Neck Neck Exam: Normal Inspection, Full ROM - Chest Chest Inspection: Normal Inspection, Symmetric Chest Wall Rise - Respiratory Respiratory Exam: Normal Lung Sounds Bilat. negative: Respiratory Distress Respiratory Exam: Bilateral Clear to Auscultation - Cardiovascular Cardiovascular Exam: Regular Rate, Systolic Murmur, +S2 - Abdominal Exam Abdominal Exam: Normal Inspection Abdominal Tenderness: negative: RUQ, RLQ, LUQ, LLQ, Epigastrium, Suprapubic, Diffuse, Mild, Moderate, Severe, Other - Extremities Extremities Exam: Normal Inspection, Full ROM - Back Back Exam: Normal Inspection, Full ROM - Neurologic Neurological Exam: Alert, Oriented X3, CN II-XII Intact - Psychiatric Psychiatric Exam: Normal Affect - Skin Skin Exam: Warm, Dry, Intact <LAKESHA WALSH - Last Filed: 05/13/17 07:52> - Vital Signs Vitals: Temperature 98.9 F Pulse Rate 77 Respiratory Rate 16 Blood Pressure [Right Arm] 187/81 Blood Pressure [Left Arm] 181/90 Blood Pressure 164/70 O2 Sat by Pulse Oximetry 98 MDM - Differential Diagnosis Differential Diagnosis: chf exacerbation, copd exacerbation, anemia, hypertension, mi, respiratory <MASSIEL MENDOZA - Last Filed: 05/14/17 08:29> Course - Treatment Treatment: see orders - Consultation Consultation Comments: patient discuss with dr. chandra. he will admit patient. - Education/Counseling Education/Counseling: Patient, Education Educated On: Treatment, Diagnosis <MASSIEL MENDOZA - Last Filed: 05/14/17 08:29> ROR - Labs Reviewed Laboratory Results Reviewed?: Yes Result Diagrams: 05/14/17 04:18 05/14/17 04:18 - XRAY XRAY Interpreted by: Radiologist XRAY Findings: report discuss with patient. - EKG Rhythm: NSR (ekg noted) <MASSIEL MENDOZA - Last Filed: 05/14/17 08:29> - Labs Reviewed Laboratory: WBC 8.2 X10^3/uL (3.6-10.0) 05/14/17 04:18 RBC 2.56 X10^6/uL (4.7-6.0) L 05/14/17 04:18 Hgb 7.2 g/dL (13.5-18.0) L 05/14/17 04:18 Hct 21.8 % (42.0-54.0) L 05/14/17 04:18 MCV 84.8 fL (80.0-100.0) 05/14/17 04:18 MCH 28.0 pg (27.0-34.0) 05/14/17 04:18 MCHC 33.0 g/dL (33.0-35.0) 05/14/17 04:18 RDW 15.0 % (11.6-16.5) 05/14/17 04:18 Plt Count 157 X10^3/uL (150.0-450.0) 05/14/17 04:18 Plt Count Comment Adequate (ADEQUATE) 05/14/17 04:18 MPV 9.7 fL (7.4-11.0) 05/14/17 04:18 Neut % 73.0 % (42.0-75.0) 05/14/17 04:18 Lymph % 12.8 % (21.0-51.0) L 05/14/17 04:18 Banner % 11.7 % (0.0-13.0) 05/14/17 04:18 Eos % 1.9 % (0.9-2.9) 05/14/17 04:18 Baso % 0.6 % (0.2-1.0) 05/14/17 04:18 Neut # 6.0 x10^3/uL (2.2-4.8) H 05/14/17 04:18 Lymph # 1.1 X10^3/uL (1.3-2.9) L 05/14/17 04:18 Banner # 1.0 x10^3/uL (0.3-0.8) H 05/14/17 04:18 Eos # 0.2 x10^3/uL (0.0-0.2) 05/14/17 04:18 Baso # 0.0 X10^3/uL (0.0-0.1) 05/14/17 04:18 Absolute Nucleated RBC 0.0 /100WBC 05/14/17 04:18 Plt Morphology Comment Normal (NORMAL) 05/14/17 04:18 RBC Morphology Abnormal (NORMAL) 05/14/17 04:18 Hypochromasia 1+ A 05/14/17 04:18 INR Target Range - 05/14/17 04:18 INR 1.11 (0.8-1.3) 05/14/17 04:18 PTT 36.2 SECONDS (22.9-36.5) 05/14/17 04:18 PTT Comment - 05/14/17 04:18 Sodium 145 mmol/L (136-145) 05/14/17 04:18 Corrected Sodium 146 mmol/L (136-145) H 05/14/17 04:18 Potassium 3.2 mmol/L (3.5-5.1) L 05/14/17 04:18 Chloride 108 mmol/L (98-107) H 05/14/17 04:18 Carbon Dioxide 29.0 mmol/L (21-32) 05/14/17 04:18 BUN 27 mg/dL (7-18) H 05/14/17 04:18 Creatinine 1.75 mg/dL (0.70-1.30) H 05/14/17 04:18 Est GFR (MDRD) Af Amer 48 (>60) L 05/14/17 04:18 Est GFR (MDRD) Non-Af 40 (>60) L 05/14/17 04:18 Glucose 124 mg/dL (65-99) H 05/14/17 04:18 POC Glucose (mg/dL) 135 mg/dL (65-99) H 05/14/17 05:35 Calcium 9.2 mg/dL (8.5-10.1) 05/14/17 04:18 Corrected Calcium 10.2 mg/dL (8.5-10.1) H 05/14/17 04:18 Magnesium 1.8 mg/dL (1.7-2.9) 05/14/17 04:18 Total Bilirubin 0.30 mg/dL (0.2-1.0) 05/14/17 04:18 AST 22 Units/L (15-37) 05/14/17 04:18 ALT 39 Units/L (12-78) 05/14/17 04:18 Alkaline Phosphatase 49 Units/L (46-116) 05/14/17 04:18 Creatine Kinase 202 Units/L (39-308) 05/13/17 21:24 CK-MB (CK-2) 1.5 ng/mL (0-4.0) 05/13/17 21:24 CK/CKMB % Calc 0.7 % (<4) 05/13/17 21:24 Troponin I 0.08 ng/mL (0-1.5) 05/13/17 21:24 B-Natriuretic Peptide 1100 pg/mL (0-79) H* 05/13/17 09:09 Total Protein 6.5 g/dL (6.4-8.2) 05/14/17 04:18 Albumin 2.7 g/dL (3.4-5.0) L 05/14/17 04:18 Globulin 3.8 g/dL (2.5-4.5) 05/14/17 04:18 Albumin/Globulin Ratio 0.7 Ratio (1.1-2.1) L 05/14/17 04:18 Triglycerides 43 mg/dL (0-150) 05/14/17 04:18 Cholesterol 159 mg/dL (0-200) 05/14/17 04:18 LDL Cholesterol, Calc 97 mg/dL (0-100) 05/14/17 04:18 HDL Cholesterol 53 mg/dL (40-60) 05/14/17 04:18 Cholesterol/HDL Ratio 3.0 (0.0-5.0) 05/14/17 04:18 Specimen Type Clean catch urine 05/13/17 16:37 Urine Color Yellow (YELLOW) 05/13/17 16:37 Urine Appearance Clear (CLEAR) 05/13/17 16:37 Urine pH 5.0 (5.0 - 8.0) 05/13/17 16:37 Ur Specific [place] 1.015 (1.000-1.030) 05/13/17 16:37 Urine Protein 4+ (NEGATIVE) 05/13/17 16:37 Urine Glucose (UA) 2+ (NEGATIVE) 05/13/17 16:37 Urine Ketones Negative (NEGATIVE) 05/13/17 16:37 Urine Occult Blood 1+ (NEGATIVE) 05/13/17 16:37 Urine Nitrite Negative (NEGATIVE) 05/13/17 16:37 Urine Bilirubin Negative (NEGATIVE) 05/13/17 16:37 Urine Urobilinogen Normal (NORMAL) 05/13/17 16:37 Ur Leukocyte Esterase Negative (NEGATIVE) 05/13/17 16:37 Urine RBC Rare /HPF (NEGATIVE) 05/13/17 16:37 Urine WBC 0-1 /HPF (NEGATIVE) 05/13/17 16:37 Ur Squamous Epith Cells Rare /HPF (NEGATIVE) 05/13/17 16:37 Urine Bacteria Negative /HPF (NEGATIVE) 05/13/17 16:37 Hyaline Casts Few /LPF (NEGATIVE) 05/13/17 16:37 Ur Culture Indicated? No/not indicated 05/13/17 16:37 <LAKESHA WALSH - Last Filed: 05/13/17 07:52> <MASSIEL MENDOZA - Last Filed: 05/14/17 08:29> - Diagnosis Discharge Problem: Respiratory distress CHF (congestive heart failure) Qualifiers: Congestive heart failure type: combined Congestive heart failure chronicity: acute on chronic Qualified Code(s): I50.43 - Acute on chronic combined systolic (congestive) and diastolic (congestive) heart failure Hypertension Qualifiers: Hypertension type: essential hypertension Qualified Code(s): I10 - Essential ( primary) hypertension Anemia Qualifiers: Anemia type: other cause Other causes of anemia: other cause, not classified Qualified Code(s): D64.89 - Other specified anemias - Discharge Plan Disposition: 09 ADMITTED INPATIENT Condition: Stable
[2017-05-13] MEDS: LASIX IVP SCH ×2 (09:16→21:42)
[2017-05-13 09:21] LABS: BASOPHILS % (AUTO) 0.5 % (0.2-1.0); EOSINOPHILS # (AUTO) 0.2 x10^3/uL (0.0-0.2); HEMATOCRIT 23.7 % (42.0-54.0); HEMOGLOBIN 7.7 g/dL (13.5-18.0); LYMPHOCYTES % (AUTO) 11.6 % (21.0-51.0); MEAN CORPUSCULAR HGB CONC 32.6 g/dL (33.0-35.0); MEAN CORPUSCULAR VOLUME 85.6 fL (80.0-100.0); MEAN PLATELET VOLUME 9.1 fL (7.4-11.0); MONOCYTES # (AUTO) 0.8 x10^3/uL (0.3-0.8); MONOCYTES % (AUTO) 8.7 % (0.0-13.0); NEUTROPHILS # (AUTO) 6.8 x10^3/uL (2.2-4.8); NEUTROPHILS % (AUTO) 77.2 % (42.0-75.0); PLATELET COUNT 162 X10^3/uL (150.0-450.0); RED BLOOD COUNT 2.77 X10^6/uL (4.7-6.0); RED CELL DISTRIBUTION WIDTH 15.3 % (11.6-16.5); WHITE BLOOD COUNT 8.8 X10^3/uL (3.6-10.0)
[2017-05-13 09:47] LABS: CALCIUM 9.3 mg/dL (8.5-10.1); CARBON DIOXIDE 27.4 mmol/L (21-32); CREATININE 1.71 mg/dL (0.70-1.30); HYPOCHROMASIA SLIGHT; PLATELET MORPHOLOGY COMMENT NORMAL (NORMAL); TROPONIN I 0.05 ng/mL (0-1.5)
[2017-05-13 09:51] LABS: ALBUMIN 2.9 g/dL (3.4-5.0); CKMB % 0.8 % (<4); COR CA(FOR HYPOALB) 10.2 mg/dL (8.5-10.1); CREATINE KINASE MB 1.4 ng/mL (0-4.0)
[2017-05-13] MEDS: COREG TAB 25 MG PO SCH ×2 (11:28→21:42)
[2017-05-13] MEDS: PROCARDIA XL PO SCH (11:29)
[2017-05-13] MEDS: APRESOLINE TAB 25 MG PO SCH ×3 (11:29→21:49)
--- NOTE | 2017-05-13 13:13 | DR.H&P ---
H&P - History & Physical for Day of: H&P Date: 05/13/17 - Chief Complaint Chief Complaint: Patient presented to the ED with complaint of SOB this AM - Allergies Allergies/Adverse Reactions: Allergies Allergy/AdvReac Type Severity Reaction Status Date / Time lisinopril Allergy Verified 03/17/17 16:17 - History of Present Illness History of Present Illness: 81 BM ADMITTED FROM ER AFTER PRESENTING WITH CO SOB. PT HAS COPD, DENIES ANY FEVER. PT STATES HE DOES NOT HAVE HOME O2 OR NEB MACHING. PT PCP IN [facility] [place]. PT HAS PMH OF COPD, HTN, DM, OA. PT STATES HE HAD BYPASS APPROX 6 YEARS AGO AND HAS NOT SEEN DR MIRANDA IN [facility] 2 -3 YEARS FOR LAST STRESS TEST. - Past Medical History Past Medical History: Arthritis, COPD, Coronary Artery Disease, Diabetes, Dyslipidemia, GERD, Hypertension Additional Medical History: Prostate Cancer, Bronchitis, Constipation - Past Surgical History Surgical History: CABG/Valve Surgery - Family History Family Medical History: Diabetes Mellitus, Cancer, [place], Hypertension - Social History Does patient currently use any type of tobacco product: No Have you used tobacco products in the last 12 months: No Type of Tobacco Use: Cigarettes Does any household member use tobacco: No Alcohol Use: None - Medications Home Medications: Furosemide [LASIX TAB 20 MG *] 20 mg PO DAILY 05/13/17 [History Confirmed ] Insulin Aspart [NovoLog insulin 10 mL vial] 1 unit SQ DAILYAC 05/13/17 [History Confirmed 05/13/17] - Review of Systems Constitutional: Weakness Eyes: No Symptoms Reported ENT: No Symptoms Reported Respiratory: Cough, Shortness of Breath, SOB with Excertion Cardiovascular: Edema Gastrointestinal: No Symptoms Reported Genitourinary: No Symptoms Reported Musculoskeletal: No Symptoms Reported Skin: No Symptoms Reported Neurological: Weakness - Physical Exam Vital Signs: Temperature 97.8 F Pulse Rate [Right Brachial] 80 Pulse Rate 77 Respiratory Rate 20 Blood Pressure [Right Arm] 200/80 Blood Pressure [Left Arm] 181/90 Blood Pressure 164/70 O2 Sat by Pulse Oximetry 93 Oriented: Normal Eyes: Normal Ear: Normal Throat: Normal Respiratory: Diminished Throughout Cardiovascular: Murmur, Edema : Normal Auscultation: Bowel Sounds: Normal Tenderness: Normal Skin: Normal Musculoskeletal: Back:Lumbar Mood Description: Calm Speech Pattern: Clear, Appropriate - Assessment/Plan (1) SOB (shortness of breath) Status: Acute Plan: ADMIT, CARDIAC MONITORING. BP CONTROL, IV LASIX. STRICT I & OS, EKG SERIAL CARDIAC ENZYMES. RESTART HOME MEDS, SSI (2) CHF (congestive heart failure) Qualifiers: Congestive heart failure type: unspecified congestive heart failure type Congestive heart failure chronicity: acute Qualified Code(s): I50.9 - Heart failure, unspecified Status: Acute (3) Diabetes mellitus Qualifiers: Diabetes mellitus type: type 2 Diabetes mellitus complication status: without complication Diabetes mellitus usp insulin use: with usp use Qualified Code(s): E11.9 - Type 2 diabetes mellitus without complications ; Z79.4 - FDC (current) use of insulin Status: Chronic (4) GERD (gastroesophageal reflux disease) Qualifiers: Esophagitis presence: esophagitis presence not specified Qualified Code(s) : K21.9 - Gastro-esophageal reflux disease without esophagitis Status: Chronic (5) Hyperlipidemia Qualifiers: Hyperlipidemia type: mixed hyperlipidemia Qualified Code(s): E78.2 - Mixed hyperlipidemia Status: Chronic (6) Hypertension Qualifiers: Hypertension type: essential hypertension Qualified Code(s): I10 - Essential (primary) hypertension Status: Chronic
[2017-05-13] MEDS: HumuLIN R SUBCUT PRN ×3 (13:35→22:18)
[2017-05-13] MEDS ORDERED: HYDRALAZINE HCL PO SCH (14:00)
[2017-05-13 15:16] LABS: CKMB % 0.8 % (<4); CREATINE KINASE MB 1.5 ng/mL (0-4.0); TROPONIN I 0.07 ng/mL (0-1.5)
[2017-05-13] MEDS ORDERED: PATIENT'S HOME MEDICATION (Insulin Aspart [Novolog Insulin 10 Ml Vial] 1 UNIT) SQ SCH (16:30)
[2017-05-13 16:51] LABS: BILIRUBIN,URINE NEGATIVE (NEGATIVE); BLOOD/HEMOGLOBIN,URINE 1+ (NEGATIVE); GLUCOSE, URINE 2+ (NEGATIVE); KETONES,URINE NEGATIVE (NEGATIVE); LEUKOCYTE ESTERASE ,URINE NEGATIVE (NEGATIVE); NITRITES,URINE NEGATIVE (NEGATIVE); PROTEIN,URINE 4+ (NEGATIVE); UROBILINOGEN,URINE NORMAL (NORMAL)
[2017-05-13 16:57] VITALS: BMI 28.0
[2017-05-13 17:11] LABS: APPEARANCE,URINE CLEAR (CLEAR); COLOR,URINE YELLOW (YELLOW)
[2017-05-13 17:12] LABS: BACTERIA,URINE NEGATIVE /HPF (NEGATIVE); HYALINE CASTS, URINE FEW /LPF (NEGATIVE); RBC,URINE RARE /HPF (NEGATIVE); SQUAMOUS EPITHELIAL CELL,UR RARE /HPF (NEGATIVE)
[2017-05-13] MEDS ORDERED: SIMVASTATIN 80 MG PO SCH (21:00)
[2017-05-13] MEDS: ZOCOR TAB 40 MG PO SCH (21:42)
[2017-05-13] MEDS: PROSCAR PO SCH (21:42)
[2017-05-13 21:53] LABS: CKMB % 0.7 % (<4); CREATINE KINASE MB 1.5 ng/mL (0-4.0); TROPONIN I 0.08 ng/mL (0-1.5)
[2017-05-13] MEDS: SNACK - Diabetic Appropriate PO SCH (22:19)
[2017-05-14 05:46] LABS: ALBUMIN 2.7 g/dL (3.4-5.0); CALCIUM 9.2 mg/dL (8.5-10.1); COR CA(FOR HYPOALB) 10.2 mg/dL (8.5-10.1); CREATININE 1.75 mg/dL (0.70-1.30); MAGNESIUM 1.8 mg/dL (1.7-2.9); TOTAL PROTEIN 6.5 g/dL (6.4-8.2)
[2017-05-14 06:00] LABS: BASOPHILS % (AUTO) 0.6 % (0.2-1.0); EOSINOPHILS # (AUTO) 0.2 x10^3/uL (0.0-0.2); EOSINOPHILS % (AUTO) 1.9 % (0.9-2.9); HEMATOCRIT 21.8 % (42.0-54.0); HEMOGLOBIN 7.2 g/dL (13.5-18.0); LYMPHOCYTES # (AUTO) 1.1 X10^3/uL (1.3-2.9); LYMPHOCYTES % (AUTO) 12.8 % (21.0-51.0); MEAN CORPUSCULAR VOLUME 84.8 fL (80.0-100.0); MEAN PLATELET VOLUME 9.7 fL (7.4-11.0); MONOCYTES % (AUTO) 11.7 % (0.0-13.0); PLATELET COUNT 157 X10^3/uL (150.0-450.0); RED BLOOD COUNT 2.56 X10^6/uL (4.7-6.0); WHITE BLOOD COUNT 8.2 X10^3/uL (3.6-10.0)
[2017-05-14] MEDS: APRESOLINE TAB 25 MG PO SCH ×3 (06:02→22:05)
[2017-05-14 06:49] LABS: HYPOCHROMASIA 1+; PLATELET MORPHOLOGY COMMENT NORMAL (NORMAL)
--- NOTE | 2017-05-14 07:37 | RAD ---
HISTORY: CHF Study: Single-view chest, done portably Comparison: May 13, 2017 Findings: Cardiac monitoring electrodes are noted on the chest. There again changes of CABG with median sternot haylee sutures and metallic markers indicating coronary artery bypass grafts. The trachea is midline. Th ere is cardiomegaly with aortic uncoiling and pulmonary vascular congestion. Improved aeration is not ed involving both lungs with reduction in the CHF/interstitial edema pattern. No evidence of pleural effusion or pneumothorax seen. Osseous structures are intact. IMPRESSION: CHF/pulmonary edema pattern with some improvement. Reported By:
[2017-05-14] MEDS ORDERED: NIFEDIPINE 90 MG PO SCH (09:00)
[2017-05-14] MEDS ORDERED: LANTUS SC SCH (09:00)
[2017-05-14] MEDS ORDERED: PATIENT'S HOME MEDICATION (Aspirin [Aspirin] 1 TAB) PO SCH (09:00)
[2017-05-14] MEDS: LASIX IVP SCH ×2 (10:28→22:06)
[2017-05-14] MEDS: CLARITIN PO SCH (10:28)
[2017-05-14] MEDS: LASIX PO SCH (10:28)
[2017-05-14] MEDS: PLAVIX PO SCH (10:29)
[2017-05-14] MEDS: ASPIRIN 81 MG CHEWTAB PO SCH (10:29)
[2017-05-14] MEDS: COREG TAB 25 MG PO SCH ×2 (10:29→22:06)
[2017-05-14] MEDS: PROCARDIA XL PO SCH (10:29)
[2017-05-14] MEDS: HumuLIN R SUBCUT PRN ×2 (14:53→17:51)
[2017-05-14] MEDS ORDERED: XOPENEX 1.25 MG/3 ML NEBULE NEB PRN (20:07)
[2017-05-14] MEDS: XOPENEX 1.25 MG/3 ML NEBULE NEB SCH (20:37)
[2017-05-14] MEDS: ZOCOR TAB 40 MG PO SCH (22:05)
[2017-05-14] MEDS: PROSCAR PO SCH (22:05)
[2017-05-14] MEDS: SNACK - Diabetic Appropriate PO SCH (22:06)
[2017-05-15] MEDS: XOPENEX 1.25 MG/3 ML NEBULE NEB SCH ×5 (00:17→20:09)
[2017-05-15] MEDS: APRESOLINE TAB 25 MG PO SCH ×3 (05:34→23:13)
[2017-05-15] MEDS: HumuLIN R SUBCUT PRN ×3 (05:59→21:22)
[2017-05-15 06:17] LABS: BASOPHILS % (AUTO) 0.5 % (0.2-1.0); EOSINOPHILS # (AUTO) 0.2 x10^3/uL (0.0-0.2); EOSINOPHILS % (AUTO) 2.5 % (0.9-2.9); HEMATOCRIT 21.1 % (42.0-54.0); LYMPHOCYTES # (AUTO) 0.9 X10^3/uL (1.3-2.9); MEAN CORPUSCULAR HEMOGLOBIN 27.8 pg (27.0-34.0); MEAN CORPUSCULAR VOLUME 84.2 fL (80.0-100.0); MEAN PLATELET VOLUME 9.4 fL (7.4-11.0); MONOCYTES # (AUTO) 0.8 x10^3/uL (0.3-0.8); MONOCYTES % (AUTO) 10.5 % (0.0-13.0); NEUTROPHILS # (AUTO) 6.1 x10^3/uL (2.2-4.8); NEUTROPHILS % (AUTO) 75.5 % (42.0-75.0); PLATELET COUNT 144 X10^3/uL (150.0-450.0); WHITE BLOOD COUNT 8.1 X10^3/uL (3.6-10.0)
[2017-05-15 06:35] LABS: HEMOGLOBIN 6.9 g/dL (13.5-18.0)
[2017-05-15 07:09] LABS: ALBUMIN 2.6 g/dL (3.4-5.0); CARBON DIOXIDE 28.4 mmol/L (21-32); COR CA(FOR HYPOALB) 10.1 mg/dL (8.5-10.1); CREATININE 1.86 mg/dL (0.70-1.30); TOTAL PROTEIN 6.4 g/dL (6.4-8.2)
[2017-05-15] MEDS ORDERED: POTASSIUM CHLORIDE LIQ 20 MEQ UDC PO PRN (07:26)
[2017-05-15] MEDS ORDERED: K-DUR TAB 20 MEQ PO PRN (07:26)
[2017-05-15] MEDS ORDERED: K-LYTE EFFERVESCENT PO PRN (07:26)
[2017-05-15] MEDS ORDERED: K-RIDER 10 MEQ/NS 100 ML 10 MEQ/100 ML BAG IV PRN (07:26)
[2017-05-15] MEDS: LASIX IVP SCH ×2 (10:20→20:37)
[2017-05-15] MEDS: CLARITIN PO SCH (10:21)
[2017-05-15] MEDS: COREG TAB 25 MG PO SCH ×2 (10:21→20:37)
[2017-05-15] MEDS: ASPIRIN 81 MG CHEWTAB PO SCH (10:21)
[2017-05-15] MEDS: LASIX PO SCH (10:21)
[2017-05-15] MEDS: PROCARDIA XL PO SCH (10:21)
[2017-05-15] MEDS: PLAVIX PO SCH (10:22)
[2017-05-15] MEDS ORDERED: NS 250 ML IV 250 ML IV ONE (13:23)
[2017-05-15] MEDS: PROSCAR PO SCH (20:37)
[2017-05-15] MEDS: ZOCOR TAB 40 MG PO SCH (20:38)
[2017-05-15] MEDS: SNACK - Diabetic Appropriate PO SCH (23:13)
[2017-05-16 05:38] LABS: ALBUMIN 2.7 g/dL (3.4-5.0); CALCIUM 9.2 mg/dL (8.5-10.1); CARBON DIOXIDE 29.9 mmol/L (21-32); COR CA(FOR HYPOALB) 10.2 mg/dL (8.5-10.1); CREATININE 1.95 mg/dL (0.70-1.30); TOTAL PROTEIN 6.7 g/dL (6.4-8.2)
[2017-05-16 05:40] LABS: BASOPHILS % (AUTO) 0.5 % (0.2-1.0); EOSINOPHILS # (AUTO) 0.2 x10^3/uL (0.0-0.2); EOSINOPHILS % (AUTO) 2.9 % (0.9-2.9); HEMATOCRIT 24.2 % (42.0-54.0); HEMOGLOBIN 7.9 g/dL (13.5-18.0); LYMPHOCYTES # (AUTO) 0.9 X10^3/uL (1.3-2.9); LYMPHOCYTES % (AUTO) 10.5 % (21.0-51.0); MEAN CORPUSCULAR HGB CONC 32.6 g/dL (33.0-35.0); MEAN CORPUSCULAR VOLUME 85.9 fL (80.0-100.0); MEAN PLATELET VOLUME 9.8 fL (7.4-11.0); MONOCYTES % (AUTO) 11.9 % (0.0-13.0); NEUTROPHILS # (AUTO) 6.2 x10^3/uL (2.2-4.8); NEUTROPHILS % (AUTO) 74.2 % (42.0-75.0); PLATELET COUNT 144 X10^3/uL (150.0-450.0); RED BLOOD COUNT 2.82 X10^6/uL (4.7-6.0); RED CELL DISTRIBUTION WIDTH 15.1 % (11.6-16.5); WHITE BLOOD COUNT 8.4 X10^3/uL (3.6-10.0)
[2017-05-16 05:57] LABS: HYPOCHROMASIA 1+; PLATELET MORPHOLOGY COMMENT NORMAL (NORMAL)
[2017-05-16] MEDS: APRESOLINE TAB 25 MG PO SCH (06:08)
--- NOTE | 2017-05-16 06:45 | RAD ---
HISTORY: Follow up CHF Study: Chest AP portable Comparison: May 14, 2017 Findings: The patient is status post median sternotomy. The heart remains enlarged. Mild congestive heart failu re is present in the form of pulmonary venous congestion and mild interstitial edema unchanged from t he prior examination. No alveolar edema, alveolar infiltrates, or pleural effusions are identified. T he bony thorax is unremarkable with the exception of bilateral AC joint degenerative joint disease. IMPRESSION: Cardiomegaly with mild congestive heart failure unchanged from the prior examination Reported By:
[2017-05-16] MEDS: XOPENEX 1.25 MG/3 ML NEBULE NEB SCH (08:39)
[2017-05-16] MEDS: ASPIRIN 81 MG CHEWTAB PO SCH (09:48)
[2017-05-16] MEDS: LASIX PO SCH (09:48)
[2017-05-16] MEDS: PROCARDIA XL PO SCH (09:48)
[2017-05-16] MEDS: CLARITIN PO SCH (09:48)
[2017-05-16] MEDS: COREG TAB 25 MG PO SCH (09:48)
[2017-05-16] MEDS: PLAVIX PO SCH (09:50)
[2017-05-16] MEDS: LASIX IVP SCH (10:42)
[2017-05-16 11:14] VITALS: BP 184/87
== END 2017-05-16 11:00 | disposition home or self-care (01) | DRG 292 ==
LOC: ER 06:40 → MED/SURG 09:11
PROVIDERS: ADMIT Internal Medicine; ATTEND Internal Medicine
PROC: 30233N1 Transfusion of Nonautologous Red Blood Cells into Peripheral Vein, Percutaneous Approach (ICD-10-PCS; principal; 2017-05-15)
DX: I50.43 Acute on chronic combined systolic (congestive) and diastolic (congestive) heart failure (principal); R06.02 Shortness of breath; D64.89 Other specified anemias; I10 Essential (primary) hypertension; R06.09 Other forms of dyspnea; J44.1 Chronic obstructive pulmonary disease with (acute) exacerbation; E11.65 Type 2 diabetes mellitus with hyperglycemia; M15.0 Primary generalized (osteo)arthritis; Z79.4 Long term (current) use of insulin; K21.9 Gastro-esophageal reflux disease without esophagitis; E78.2 Mixed hyperlipidemia; R94.31 Abnormal electrocardiogram [ECG] [EKG]; J90 Pleural effusion, not elsewhere classified; I25.10 Atherosclerotic heart disease of native coronary artery without angina pectoris; N40.0 Benign prostatic hyperplasia without lower urinary tract symptoms
CPT/HCPCS: 36415; 71010; 80053; 80061; 81001; 82550; 82553; 82607; 82728; 82746; 83540; 83735; 83880; 84132; 84466; 84484; 85025; 85610; 85730; 86850; 86900; 86901; 86922; 93005; 93010; 93306; 94640; 94760; 96374; 99284; A4222; P9016; S0138; J1815; J1940

== ENCOUNTER 2017-05-22 10:32 | Inpatient (IN) | payer OTHER, MEDICAID ==
[2017-05-22 10:39] VITALS: BMI 25.1
--- NOTE | 2017-05-22 11:03 | DR.GENAD ---
HPI - PCP Primary Care Physician: Gonsalo - Complaint/Symptoms Chief Complaint Doctors Comments: Patient was admitted on last for dyspnea had a three day uneventful stay. He received one blood transfusion. He was discharged on 16 May with instruction to follow up in the office this week for further evaluation. Spouse reports that patient on porch as usual in the AM and reported that he had increasing dyspnea. Chief Complaint:: "He has had difficulty breathing. He was just in here last week for the same thing. He has fluid built up in his chest.". Via Daughter - Source History Provided: Patient - Mode of Arrival Mode of Arrival: Ambulatory - Timing Onset of Chief Complaint: 05/21/17 PMH - PMH Past Medical History: Yes Past Medical History: Arthritis, COPD, Coronary Artery Disease, Diabetes, Dyslipidemia, GERD, Hypertension Past Surgical History: Yes Surgical History: CABG/Valve Surgery - Family History History of Family Medical Conditions: Yes Family Medical History: Diabetes Mellitus, Cancer, [place], Hypertension - Social History Does patient currently use any type of tobacco product: No Have you used tobacco products in the last 12 months: No Type of Tobacco Use: None Does any household member use tobacco: No Alcohol Use: None Do you use any recreational Drugs:: No Lives With: Family Lives Where: Home - infectious screening In the last 2 months have you had wt loss of >10#?: NO Have you had fever, night sweats or hemotysis?: No Have you traveled outside the country in the last 6 months?: No Isolation: Standard ROS - Review of Systems Constitutional: Diaphoresis Eyes: No Symptoms Reported ENTM: No Symptoms Reported Respiratoy: No Symptoms Reported Cardiovascular: No Symptoms Reported Gastrointestinal/Abdominal: No Symptoms Reported Genitourinary: No Symptoms Reported Neurological: No Symptoms Reported Musculoskeletal: No Symptoms Reported Integumentary: No Symptoms Reported Hematologic/Lymphatic: No Symptoms Reported Endocrine: No Symptoms Reported Psychiatric: No Symptoms Reported All Other Systems: Reviewed and Negative PE - Vital Signs Vitals: Temperature 98.4 F Pulse Rate [Left Brachial] 60 Pulse Rate 69 Respiratory Rate 22 Blood Pressure [Right Arm] 194/85 Blood Pressure [Left Arm] 181/90 Blood Pressure 209/84 O2 Sat by Pulse Oximetry 100 - General Limitations: No Limitations General Appearance: Alert - Head Head Exam: Normal Inspection, Atraumatic - Eyes Eye exam: Normal Appearance, PERRL, EOMI - ENT ENT Exam: Normal Exam External Ear Exam: Normal External Inspection TM/Canal Exam: Bilateral Normal Nose Exam: Normal Nose Exam Mouth Exam: Normal Inspection Throat Exam: Normal Inspection - Neck Neck Exam: Normal Inspection - Chest Chest Inspection: Normal Inspection - Respiratory Respiratory Exam: Normal Lung Sounds Bilat Respiratory Exam: Bilateral Clear to Auscultation - Cardiovascular Cardiovascular Exam: Regular Rate - Abdominal Exam Abdominal Exam: Normal Inspection, Normal Bowel Sounds Abdominal Tenderness: negative: RUQ, RLQ, LUQ, LLQ, Epigastrium, Suprapubic, Diffuse, Mild, Moderate, Severe, Other - Extremities Extremities Exam: Normal Inspection - Back Back Exam: Normal Inspection - Neurologic Neurological Exam: Alert, Oriented X3, CN II-XII Intact - Psychiatric Psychiatric Exam: Normal Affect, Normal Mood - Skin Skin Exam: Warm, Dry, Intact Course - Reevaluation 1st: Unchanged - Consultation Called: 13:05 (Dr Tran advised to admit for further evaluation) ROR - Labs Reviewed Result Diagrams: 05/22/17 11:20 05/22/17 11:20 Laboratory: WBC 6.8 X10^3/uL (3.6-10.0) 05/22/17 11:20 RBC 2.81 X10^6/uL (4.7-6.0) L 05/22/17 11:20 Hgb 7.8 g/dL (13.5-18.0) L 05/22/17 11:20 Hct 24.0 % (42.0-54.0) L 05/22/17 11:20 MCV 85.5 fL (80.0-100.0) 05/22/17 11:20 MCH 27.6 pg (27.0-34.0) 05/22/17 11:20 MCHC 32.3 g/dL (33.0-35.0) L 05/22/17 11:20 RDW 15.8 % (11.6-16.5) 05/22/17 11:20 Plt Count 166 X10^3/uL (150.0-450.0) 05/22/17 11:20 Plt Count Comment Adequate (ADEQUATE) 05/22/17 11:20 MPV 9.0 fL (7.4-11.0) 05/22/17 11:20 Neut % 82.3 % (42.0-75.0) H 05/22/17 11:20 Lymph % 8.8 % (21.0-51.0) L 05/22/17 11:20 Jack % 7.9 % (0.0-13.0) 05/22/17 11:20 Eos % 0.5 % (0.9-2.9) L 05/22/17 11:20 Baso % 0.5 % (0.2-1.0) 05/22/17 11:20 Neut # 5.6 x10^3/uL (2.2-4.8) H 05/22/17 11:20 Lymph # 0.6 X10^3/uL (1.3-2.9) L 05/22/17 11:20 Jack # 0.5 x10^3/uL (0.3-0.8) 05/22/17 11:20 Eos # 0.0 x10^3/uL (0.0-0.2) 05/22/17 11:20 Baso # 0.0 X10^3/uL (0.0-0.1) 05/22/17 11:20 Absolute Nucleated RBC 0.0 /100WBC 05/22/17 11:20 Plt Morphology Comment Normal (NORMAL) 05/22/17 11:20 RBC Morphology Abnormal (NORMAL) 05/22/17 11:20 Hypochromasia Slight A 05/22/17 11:20 Sodium 143 mmol/L (136-145) 05/22/17 11:20 Corrected Sodium 147 mmol/L (136-145) H 05/22/17 11:20 Potassium 3.9 mmol/L (3.5-5.1) 05/22/17 11:20 Chloride 109 mmol/L (98-107) H 05/22/17 11:20 Carbon Dioxide 27.1 mmol/L (21-32) 05/22/17 11:20 BUN 31 mg/dL (7-18) H 05/22/17 11:20 Creatinine 2.07 mg/dL (0.70-1.30) H 05/22/17 11:20 Est GFR (MDRD) Af Amer 40 (>60) L 05/22/17 11:20 Est GFR (MDRD) Non-Af 33 (>60) L 05/22/17 11:20 Glucose 287 mg/dL (65-99) H 05/22/17 11:20 Calcium 9.2 mg/dL (8.5-10.1) 05/22/17 11:20 Corrected Calcium 10.3 mg/dL (8.5-10.1) H 05/22/17 11:20 Total Bilirubin 0.20 mg/dL (0.2-1.0) 05/22/17 11:20 AST 40 Units/L (15-37) H 05/22/17 11:20 ALT 72 Units/L (12-78) 05/22/17 11:20 Alkaline Phosphatase 57 Units/L (46-116) 05/22/17 11:20 Total Protein 6.3 g/dL (6.4-8.2) L 05/22/17 11:20 Albumin 2.6 g/dL (3.4-5.0) L 05/22/17 11:20 Globulin 3.7 g/dL (2.5-4.5) 05/22/17 11:20 Albumin/Globulin Ratio 0.7 Ratio (1.1-2.1) L 05/22/17 11:20 Specimen Type Catherized urine 05/22/17 12:37 Urine Color Yellow (YELLOW) 05/22/17 12:37 Urine Appearance Clear (CLEAR) 05/22/17 12:37 Urine pH 6.0 (5.0 - 8.0) 05/22/17 12:37 Ur Specific [place] 1.015 (1.000-1.030) 05/22/17 12:37 Urine Protein 3+ (NEGATIVE) 05/22/17 12:37 Urine Glucose (UA) 3+ (NEGATIVE) 05/22/17 12:37 Urine Ketones Negative (NEGATIVE) 05/22/17 12:37 Urine Occult Blood 2+ (NEGATIVE) 05/22/17 12:37 Urine Nitrite Negative (NEGATIVE) 05/22/17 12:37 Urine Bilirubin Negative (NEGATIVE) 05/22/17 12:37 Urine Urobilinogen Normal (NORMAL) 05/22/17 12:37 Ur Leukocyte Esterase Negative (NEGATIVE) 05/22/17 12:37 Urine RBC 5-10 /HPF (NEGATIVE) 05/22/17 12:37 Urine WBC 0-1 /HPF (NEGATIVE) 05/22/17 12:37 Ur Squamous Epith Cells Rare /HPF (NEGATIVE) 05/22/17 12:37 Urine Bacteria Negative /HPF (NEGATIVE) 05/22/17 12:37 Ur Culture Indicated? No/not indicated 05/22/17 12:37 - XRAY XRAY Interpreted by: Radiologist (There is no significant change showing moderate cardiomegaly with a tortuous aorta status post old sterntomy. There is moderate vascular congestion. There is no obvious pleural effusion. Impression: unchanged cardiomegaly and vascular congestion.) - Diagnosis Discharge Problem: CHF (congestive heart failure) Qualifiers: Congestive heart failure type: systolic Congestive heart failure chronicity: acute on chronic Qualified Code(s): I50.23 - Acute on chronic systolic ( congestive) heart failure Hypertension Qualifiers: Hypertension type: unspecified Qualified Code(s): I10 - Essential (primary) hypertension - Discharge Plan Condition: Stable - Follow ups/Referrals Follow ups/Referrals: THAI LUCIA [Primary Care Provider] - 3 days - Instructions
[2017-05-22] MEDS ORDERED: CATAPRES TAB 0.2 MG PO ONE (11:20)
[2017-05-22] MEDS ORDERED: CATAPRES TAB 0.2 MG ONE (11:21)
[2017-05-22 11:30] LABS: BASOPHILS % (AUTO) 0.5 % (0.2-1.0); EOSINOPHILS % (AUTO) 0.5 % (0.9-2.9); HEMOGLOBIN 7.8 g/dL (13.5-18.0); LYMPHOCYTES # (AUTO) 0.6 X10^3/uL (1.3-2.9); LYMPHOCYTES % (AUTO) 8.8 % (21.0-51.0); MEAN CORPUSCULAR HEMOGLOBIN 27.6 pg (27.0-34.0); MEAN CORPUSCULAR HGB CONC 32.3 g/dL (33.0-35.0); MEAN CORPUSCULAR VOLUME 85.5 fL (80.0-100.0); MONOCYTES # (AUTO) 0.5 x10^3/uL (0.3-0.8); MONOCYTES % (AUTO) 7.9 % (0.0-13.0); NEUTROPHILS # (AUTO) 5.6 x10^3/uL (2.2-4.8); NEUTROPHILS % (AUTO) 82.3 % (42.0-75.0); PLATELET COUNT 166 X10^3/uL (150.0-450.0); RED BLOOD COUNT 2.81 X10^6/uL (4.7-6.0); RED CELL DISTRIBUTION WIDTH 15.8 % (11.6-16.5); WHITE BLOOD COUNT 6.8 X10^3/uL (3.6-10.0)
[2017-05-22 11:40] LABS: ALBUMIN 2.6 g/dL (3.4-5.0); CALCIUM 9.2 mg/dL (8.5-10.1); CARBON DIOXIDE 27.1 mmol/L (21-32); COR CA(FOR HYPOALB) 10.3 mg/dL (8.5-10.1); CREATININE 2.07 mg/dL (0.70-1.30); TOTAL PROTEIN 6.3 g/dL (6.4-8.2)
[2017-05-22] MEDS ORDERED: APRESOLINE INJ 20 MG VIAL IVP ONE (11:46)
--- NOTE | 2017-05-22 11:46 | RAD ---
History: Shortness of breath Study: Portable AP chest. Comparison: May 16 Findings: There is no significant change showing moderate cardiomegaly with a tortuous aorta status p ost old sternotomy. There is moderate vascular congestion. There is no obvious pleural effusion. Impression: Unchanged cardiomegaly and vascular congestion Reported By:
[2017-05-22] MEDS ORDERED: APRESOLINE INJ 20 MG VIAL ONE (11:50)
[2017-05-22] MEDS ORDERED: LASIX IVP ONE ×2 (11:56→11:59)
[2017-05-22 11:58] LABS: HYPOCHROMASIA SLIGHT; PLATELET MORPHOLOGY COMMENT NORMAL (NORMAL)
[2017-05-22 12:51] LABS: BILIRUBIN,URINE NEGATIVE (NEGATIVE); BLOOD/HEMOGLOBIN,URINE 2+ (NEGATIVE); GLUCOSE, URINE 3+ (NEGATIVE); KETONES,URINE NEGATIVE (NEGATIVE); LEUKOCYTE ESTERASE ,URINE NEGATIVE (NEGATIVE); NITRITES,URINE NEGATIVE (NEGATIVE); PROTEIN,URINE 3+ (NEGATIVE); UROBILINOGEN,URINE NORMAL (NORMAL)
[2017-05-22 12:56] LABS: APPEARANCE,URINE CLEAR (CLEAR); COLOR,URINE YELLOW (YELLOW)
[2017-05-22 12:57] LABS: BACTERIA,URINE NEGATIVE /HPF (NEGATIVE); SQUAMOUS EPITHELIAL CELL,UR RARE /HPF (NEGATIVE)
[2017-05-22] MEDS ORDERED: MORPHINE SULFATE INJ 4 MG IVP PRN (13:26)
[2017-05-22] MEDS ORDERED: ZOFRAN INJ 4 MG VIAL IVP PRN (13:26)
[2017-05-22] MEDS ORDERED: NITROSTAT SL PRN (13:27)
[2017-05-22] MEDS ORDERED: HYDRALAZINE HCL PO SCH (14:00)
[2017-05-22] MEDS: NS 1000 ML 1,000 ML IV SCH (16:29)
[2017-05-22] MEDS: APRESOLINE TAB 25 MG PO SCH ×2 (16:29→23:08)
[2017-05-22] MEDS ORDERED: HumaLOG SC SCH (16:30)
[2017-05-22] MEDS ORDERED: PATIENT'S HOME MEDICATION (Insulin Aspart [Novolog Insulin 10 Ml Vial] 1 UNIT) SQ SCH (16:30)
--- NOTE | 2017-05-22 18:18 | DR.H&P ---
H&P - History & Physical for Day of: H&P Date: 05/22/17 - Chief Complaint Chief Complaint: chest pain and shortness of breath - Allergies Allergies/Adverse Reactions: Allergies Allergy/AdvReac Type Severity Reaction Status Date / Time lisinopril Allergy Verified 05/13/17 16:39 - History of Present Illness History of Present Illness: patient is a 81-year-old white male who was an admission from ER after presenting to Dr. Tran's office brought in the car by his family with marked respiratory distress and complaints of chest pain family also stated the patient had severe lower extremity edema. Patient was directed to the emergency room where he was assessed for CHF exacerbation and respiratory distress. Patient was also noted to be anemic. Patient was recently discharged on 05/16 after a CHF exacerbation.. Patient was discharged home on Lasix therapy as well as home O2 patient was seen earlier this week and Dr. Tran's office and was stable. Patient's family states he has not taken blood pressure medicine as prescribed. plan to admit for further evaluation of chest pain shortness of breath and coronary artery disease. Discussed possible transfer for further cardiac evaluation. - Past Medical History Past Medical History: Arthritis, COPD, Coronary Artery Disease, Diabetes, Dyslipidemia, GERD, Hypertension Additional Medical History: Prostate Cancer, Bronchitis, Constipation - Past Surgical History Surgical History: CABG/Valve Surgery - Family History Family Medical History: Diabetes Mellitus, Cancer, OR, Hypertension - Social History Does patient currently use any type of tobacco product: No Have you used tobacco products in the last 12 months: No Type of Tobacco Use: None Does any household member use tobacco: No Alcohol Use: None Drug Use: None - Review of Systems Constitutional: Weakness ENT: No Symptoms Reported Respiratory: Shortness of Breath, SOB with Excertion, Wheezing Cardiovascular: Chest Pain, Palpitations, Edema Gastrointestinal: No Symptoms Reported Genitourinary: No Symptoms Reported Musculoskeletal: Back Pain, Leg Pain Skin: No Symptoms Reported Neurological: Weakness - Physical Exam Vital Signs: Temperature 97.7 F Pulse Rate [Left Brachial] 67 Pulse Rate 69 Respiratory Rate 20 Blood Pressure [Right Arm] 194/85 Blood Pressure [Left Arm] 198/91 Blood Pressure 209/84 O2 Sat by Pulse Oximetry 95 Oriented: Normal Eyes: Normal Ear: Normal Nose: Normal Throat: Normal Respiratory: Diminished Throughout Cardiovascular: Murmur, Edema : Normal Auscultation: Bowel Sounds: Normal Palpation: Normal Tenderness: Normal Skin: Decreased Turgur, Diaphoresis Musculoskeletal: Knee, Leg, Back:Lumbar Mood Description: Anxious Speech Pattern: Clear, Appropriate - Assessment/Plan (1) Respiratory distress Status: Acute Plan: ADMIT, IV LASIX, CARDIAC MONITORING, EKG'S CE'S. ADMISSION LABS CBC CMP. CHEST XRAY. BP AND LIPID CONTROL, RESP THERAPY, SUPPLEMENTAL O2. STRICT I & OS, DISCUSSED FUTURE TRANSFER TO TERTIARY CARE FOR CARDIAC EVALUATION (2) CHF (congestive heart failure) Qualifiers: Congestive heart failure type: systolic Congestive heart failure chronicity : acute on chronic Qualified Code(s): I50.23 - Acute on chronic systolic ( congestive) heart failure Status: Acute (3) Hypertension Qualifiers: Hypertension type: unspecified Qualified Code(s): I10 - Essential (primary ) hypertension Status: Chronic (4) Anemia Qualifiers: Anemia type: other cause Other causes of anemia: other cause, not classified Qualified Code(s): D64.89 - Other specified anemias Status: Acute (5) SOB (shortness of breath) Status: Acute (6) Coronary artery disease Status: Chronic (7) Diabetes mellitus Qualifiers: Diabetes mellitus type: type 2 Diabetes mellitus complication status: without complication 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
[2017-05-22] MEDS ORDERED: SNACK - Diabetic Appropriate PO SCH (20:00)
[2017-05-22] MEDS: COREG TAB 25 MG PO SCH (20:42)
[2017-05-22] MEDS: LASIX IVP SCH (20:43)
[2017-05-22] MEDS ORDERED: SIMVASTATIN 80 MG PO SCH (21:00)
[2017-05-22] MEDS ORDERED: PROSCAR PO SCH (21:00)
[2017-05-22] MEDS ORDERED: ZOCOR TAB 40 MG PO SCH (21:00)
[2017-05-22] MEDS: HumuLIN R SUBCUT PRN (21:38)
[2017-05-23] MEDS: APRESOLINE TAB 25 MG PO SCH ×2 (05:33→15:59)
[2017-05-23] MEDS: NS 1000 ML 1,000 ML IV SCH (05:34)
[2017-05-23 06:17] LABS: BASOPHILS % (AUTO) 0.4 % (0.2-1.0); EOSINOPHILS # (AUTO) 0.1 x10^3/uL (0.0-0.2); EOSINOPHILS % (AUTO) 1.5 % (0.9-2.9); HEMATOCRIT 23.7 % (42.0-54.0); HEMOGLOBIN 7.8 g/dL (13.5-18.0); LYMPHOCYTES # (AUTO) 0.9 X10^3/uL (1.3-2.9); LYMPHOCYTES % (AUTO) 10.8 % (21.0-51.0); MEAN CORPUSCULAR HEMOGLOBIN 27.8 pg (27.0-34.0); MEAN CORPUSCULAR HGB CONC 32.7 g/dL (33.0-35.0); MEAN PLATELET VOLUME 9.8 fL (7.4-11.0); MONOCYTES # (AUTO) 0.6 x10^3/uL (0.3-0.8); MONOCYTES % (AUTO) 8.1 % (0.0-13.0); NEUTROPHILS # (AUTO) 6.4 x10^3/uL (2.2-4.8); NEUTROPHILS % (AUTO) 79.2 % (42.0-75.0); PLATELET COUNT 173 X10^3/uL (150.0-450.0); RED BLOOD COUNT 2.79 X10^6/uL (4.7-6.0); RED CELL DISTRIBUTION WIDTH 15.6 % (11.6-16.5)
[2017-05-23] MEDS: HumuLIN R SUBCUT PRN (06:17)
[2017-05-23 06:38] LABS: ALBUMIN 2.5 g/dL (3.4-5.0); CARBON DIOXIDE 28.7 mmol/L (21-32); COR CA(FOR HYPOALB) 10.2 mg/dL (8.5-10.1); CREATININE 2.02 mg/dL (0.70-1.30)
[2017-05-23 06:53] LABS: HYPOCHROMASIA SLIGHT; PLATELET MORPHOLOGY COMMENT NORMAL (NORMAL)
--- NOTE | 2017-05-23 07:04 | RAD ---
Chest AP portable Indication: Dyspnea. Comparison: May 22, 2017. Findings: There is cardiomegaly with increased interstitial markings. No pneumothorax, large effusion or dense consolidation seen. Impression: Cardiomegaly and pulmonary edema suggesting CHF. Reported By:
--- NOTE | 2017-05-23 08:08 | PCM.PROG ---
Progress Note - Progress Note for Day of Date: 05/23/17 - Subjective Subjective: patient is a 81-year-old black male who was admitted one day ago with complaints of shortness of breath. Patient is in acute CHF currently receiving IV Lasix and respiratory supplemental O2. We will continue strict I' s andpatient has an indwelling Talbot catheter. Continue cardiac monitoring, telemetry. We did discuss possible need for further cardiac evaluation at a tertiary care facility. We will obtain ABG this morning due to tachypnea. - Past Medical Family Social History Past Med/Fam/Surg Hx: No changes since H&P Allergies: Allergies lisinopril Allergy (Verified 05/13/17 16:39) - Review of Systems ROS: No change since H&P - Vital Signs and I&O's Vital Signs: Temperature 98.3 F Pulse Rate [Left Brachial] 66 Pulse Rate 69 Respiratory Rate 18 Blood Pressure [Right Arm] 182/72 Blood Pressure [Left Arm] 198/91 Blood Pressure 209/84 O2 Sat by Pulse Oximetry 96 Intake and Output: Intake & Output 05/20/17 05/21/17 05/22/17 05/23/17 11:59 11:59 11:59 11:59 Intake Total 240 Output Total 2100 Balance -1860 - Physical Exam Oriented: Normal Eyes: Normal Ear: Normal Nose: Normal Throat: Normal Respiratory: Diminished, Rales Cardiovascular: Murmur, Edema : Normal Auscultation: Bowel Sounds: Normal Tenderness: Normal Skin: Decreased Turgur, Diaphoresis Musculoskeletal: Knee, Leg, Back:Lumbar Mood Description: Anxious Speech Pattern: Clear, Appropriate - Laboratory and Diagnostics Result Diagrams: 05/23/17 03:55 05/23/17 03:55 Labs: Laboratory WBC 8.0 X10^3/uL (3.6-10.0) 05/23/17 03:55 RBC 2.79 X10^6/uL (4.7-6.0) L 05/23/17 03:55 Hgb 7.8 g/dL (13.5-18.0) L 05/23/17 03:55 Hct 23.7 % (42.0-54.0) L 05/23/17 03:55 MCV 85.0 fL (80.0-100.0) 05/23/17 03:55 MCH 27.8 pg (27.0-34.0) 05/23/17 03:55 MCHC 32.7 g/dL (33.0-35.0) L 05/23/17 03:55 RDW 15.6 % (11.6-16.5) 05/23/17 03:55 Plt Count 173 X10^3/uL (150.0-450.0) 05/23/17 03:55 Plt Count Comment Adequate (ADEQUATE) 05/23/17 03:55 MPV 9.8 fL (7.4-11.0) 05/23/17 03:55 Neut % 79.2 % (42.0-75.0) H 05/23/17 03:55 Lymph % 10.8 % (21.0-51.0) L 05/23/17 03:55 Charles % 8.1 % (0.0-13.0) 05/23/17 03:55 Eos % 1.5 % (0.9-2.9) 05/23/17 03:55 Baso % 0.4 % (0.2-1.0) 05/23/17 03:55 Neut # 6.4 x10^3/uL (2.2-4.8) H 05/23/17 03:55 Lymph # 0.9 X10^3/uL (1.3-2.9) L 05/23/17 03:55 Charles # 0.6 x10^3/uL (0.3-0.8) 05/23/17 03:55 Eos # 0.1 x10^3/uL (0.0-0.2) 05/23/17 03:55 Baso # 0.0 X10^3/uL (0.0-0.1) 05/23/17 03:55 Absolute Nucleated RBC 0.0 /100WBC 05/23/17 03:55 Plt Morphology Comment Normal (NORMAL) 05/23/17 03:55 RBC Morphology Abnormal (NORMAL) 05/23/17 03:55 Hypochromasia Slight A 05/23/17 03:55 Sodium 146 mmol/L (136-145) H 05/23/17 03:55 Corrected Sodium 147 mmol/L (136-145) H 05/23/17 03:55 Potassium 3.4 mmol/L (3.5-5.1) L 05/23/17 03:55 Chloride 112 mmol/L (98-107) H 05/23/17 03:55 Carbon Dioxide 28.7 mmol/L (21-32) 05/23/17 03:55 BUN 29 mg/dL (7-18) H 05/23/17 03:55 Creatinine 2.02 mg/dL (0.70-1.30) H 05/23/17 03:55 Est GFR (MDRD) Af Amer 41 (>60) L 05/23/17 03:55 Est GFR (MDRD) Non-Af 34 (>60) L 05/23/17 03:55 Glucose 143 mg/dL (65-99) H 05/23/17 03:55 POC Glucose (mg/dL) 154 mg/dL (65-99) H 05/23/17 06:05 Calcium 9.0 mg/dL (8.5-10.1) 05/23/17 03:55 Corrected Calcium 10.2 mg/dL (8.5-10.1) H 05/23/17 03:55 Total Bilirubin 0.30 mg/dL (0.2-1.0) 05/23/17 03:55 AST 32 Units/L (15-37) 05/23/17 03:55 ALT 69 Units/L (12-78) 05/23/17 03:55 Alkaline Phosphatase 51 Units/L (46-116) 05/23/17 03:55 Total Protein 6.0 g/dL (6.4-8.2) L 05/23/17 03:55 Albumin 2.5 g/dL (3.4-5.0) L 05/23/17 03:55 Globulin 3.5 g/dL (2.5-4.5) 05/23/17 03:55 Albumin/Globulin Ratio 0.7 Ratio (1.1-2.1) L 05/23/17 03:55 Specimen Type Catherized urine 05/22/17 12:37 Urine Color Yellow (YELLOW) 05/22/17 12:37 Urine Appearance Clear (CLEAR) 05/22/17 12:37 Urine pH 6.0 (5.0 - 8.0) 05/22/17 12:37 Ur Specific [place] 1.015 (1.000-1.030) 05/22/17 12:37 Urine Protein 3+ (NEGATIVE) 05/22/17 12:37 Urine Glucose (UA) 3+ (NEGATIVE) 05/22/17 12:37 Urine Ketones Negative (NEGATIVE) 05/22/17 12:37 Urine Occult Blood 2+ (NEGATIVE) 05/22/17 12:37 Urine Nitrite Negative (NEGATIVE) 05/22/17 12:37 Urine Bilirubin Negative (NEGATIVE) 05/22/17 12:37 Urine Urobilinogen Normal (NORMAL) 05/22/17 12:37 Ur Leukocyte Esterase Negative (NEGATIVE) 05/22/17 12:37 Urine RBC 5-10 /HPF (NEGATIVE) 05/22/17 12:37 Urine WBC 0-1 /HPF (NEGATIVE) 05/22/17 12:37 Ur Squamous Epith Cells Rare /HPF (NEGATIVE) 05/22/17 12:37 Urine Bacteria Negative /HPF (NEGATIVE) 05/22/17 12:37 Ur Culture Indicated? No/not indicated 05/22/17 12:37 - Plan (1) Respiratory distress Status: Acute Plan: IV LASIX, CARDIAC MONITORING, EKG'S CE'S. CHEST XRAY, TALBOT CATH STRICT I & OS. BP AND LIPID CONTROL, RESP THERAPY, SUPPLEMENTAL O2. STRICT I & OS, DISCUSSED FUTURE TRANSFER TO TERTIARY CARE FOR CARDIAC EVALUATION (2) CHF (congestive heart failure) Status: Acute Qualifiers: Congestive heart failure type: systolic Congestive heart failure chronicity : acute on chronic Qualified Code(s): I50.23 - Acute on chronic systolic ( congestive) heart failure Plan: BB. LASIX, SUPPLEMENTAL O2. 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
[2017-05-23] MEDS: LASIX IVP SCH (08:11)
[2017-05-23] MEDS: COREG TAB 25 MG PO SCH (08:11)
[2017-05-23] MEDS ORDERED: PATIENT'S HOME MEDICATION (Aspirin [Aspirin] 1 TAB) PO SCH (09:00)
[2017-05-23] MEDS ORDERED: ASPIRIN EC 81 MG PO SCH (09:00)
[2017-05-23] MEDS ORDERED: PLAVIX PO SCH (09:00)
[2017-05-23] MEDS ORDERED: NIFEDIPINE 90 MG PO SCH (09:00)
[2017-05-23] MEDS ORDERED: PROCARDIA XL PO SCH (09:00)
[2017-05-23] MEDS ORDERED: LANTUS SC SCH (09:00)
[2017-05-23 09:20] LABS: ABG ALLEN TEST POS; ABG BASE EXCESS 7.8 mmol/L (-2.0-2.0); ABG HCO3 32.7 mmol/L (22-26)
[2017-05-23 09:49] LABS: CKMB % 0.8 % (<4); CREATINE KINASE MB 1.7 ng/mL (0-4.0); TROPONIN I 0.06 ng/mL (0-1.5)
[2017-05-23 14:51] LABS: CKMB % 0.8 % (<4); CREATINE KINASE MB 1.5 ng/mL (0-4.0); TROPONIN I 0.07 ng/mL (0-1.5)
[2017-05-23 16:26] VITALS: BP 160/72
== END 2017-05-23 18:05 | disposition short-term general hospital (02) | DRG 293 ==
LOC: ER 10:43 → OBS 14:55 → MED/SURG 19:36
PROVIDERS: ADMIT Internal Medicine; ATTEND Internal Medicine
DX: I50.23 Acute on chronic systolic (congestive) heart failure (principal); R06.00 Dyspnea, unspecified; I10 Essential (primary) hypertension; R07.89 Other chest pain; D64.89 Other specified anemias; I25.10 Atherosclerotic heart disease of native coronary artery without angina pectoris; E11.8 Type 2 diabetes mellitus with unspecified complications
CPT/HCPCS: 36415; 36600; 71010; 80053; 81001; 82550; 82553; 82803; 84484; 85025; 94760; 96365; 96374; 96375; 99284; A4216; A4222; S0138; J0360; J1815; J1940

== ENCOUNTER → 2017-06-21 | Outpatient (CLI) | payer OTHER, MEDICAID ==
[2017-05-23 16:26] VITALS: BP 160/72
[2017-06-21 10:10] LABS: CALCIUM 10.2 mg/dL (8.5-10.1); CARBON DIOXIDE 31.4 mmol/L (21-32); CREATININE 1.89 mg/dL (0.70-1.30); MAGNESIUM 1.6 mg/dL (1.7-2.9)
== END ==
LOC: LAB 09:07 → EDSTATUS 10:56
PROVIDERS: ATTEND Internal Medicine Interventional Cardiology
DX: I25.10 Atherosclerotic heart disease of native coronary artery without angina pectoris (principal); Z68.27 Body mass index [BMI] 27.0-27.9, adult; I10 Essential (primary) hypertension; M19.90 Unspecified osteoarthritis, unspecified site; I35.0 Nonrheumatic aortic (valve) stenosis; Z95.1 Presence of aortocoronary bypass graft; I70.213 Atherosclerosis of native arteries of extremities with intermittent claudication, bilateral legs; N18.4 Chronic kidney disease, stage 4 (severe); I65.23 Occlusion and stenosis of bilateral carotid arteries
CPT/HCPCS: 36415; 80048; 83735; 83880

== ENCOUNTER 2017-08-09 10:10 | Observation (INO) | payer OTHER, MEDICAID ==
[2017-08-09 10:23] VITALS: BMI 26.6
[2017-08-09] MEDS ORDERED: ASPIRIN 81 MG CHEWTAB ONE (10:33)
[2017-08-09] MEDS ORDERED: ASPIRIN PO ONE (10:33)
[2017-08-09] MEDS ORDERED: NITROSTAT SL ONE (10:34)
[2017-08-09] MEDS: NITROSTAT SL PRN ×2 (10:37→12:13)
--- NOTE | 2017-08-09 10:43 | DR.CP ---
HPI - Time Seen Time seen: 10:34 - PCP Primary Care Physician: ABNER INMANP - Complaint Chief Complaint Doctor Comments: Patient is complaining of right sided chest pain for over three hours. States he woke up with chest tightness that is getting better. States he had heart surgery years ago and had stents recently at [facility]. 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 States patient was not feeling well this morning and did not take his medicines until late. Patient denies tobacco or alcohol usage. Patient denies cold, cough, fever or chills. Patient denies any recent trauma. Chief Complaint:: PT. C/O RIGHT SIDED CHEST PAIN THAT BEGAN THIS MORNING, UNSURE OF EXACT TIME. PT. STATES IT FEELS TIGHT. DENIES RAIDIATING PAIN OR ANY OTHER SYMPTOMS. - Reviewed Nurses Notes Review: Yes - Source History Provided: Patient - Mode of Arrival Mode of Arrival: Ambulatory - Timing Onset of Chief Complaint: 08/09/17 Came on: Gradually Pain: Present Now - Duration Duration: Constant Duration: Hours - Location Location of Chest Pain: Right Chest Pain Radiation Location: None - Context Onset: While Asleep Cardiac Risk Factors: HTN PE Risk Factors: None History of: Similar pain in the past, NE, Angioplasty Prehospital Care: None - Quality Quality: Pressure like - Severity Severity: Moderate - Modifying Factors Worsens: Nothing - Associated Signs and Symptoms Associated Signs and Symptoms: None PMH - PMH Past Medical History: Yes Past Medical History: Arthritis, COPD, Coronary Artery Disease, Diabetes, Dyslipidemia, GERD, Hypertension Past Surgical History: Yes Surgical History: CABG/Valve Surgery - Family History History of Family Medical Conditions: Yes Family Medical History: Diabetes Mellitus, Cancer, NE, Hypertension - Social History Does patient currently use any type of tobacco product: No Have you used tobacco products in the last 12 months: No Type of Tobacco Use: None Does any household member use tobacco: No Alcohol Use: None Do you use any recreational Drugs:: No Lives With: Spouse Lives Where: Home - infectious screening In the last 2 months have you had wt loss of >10#?: NO Have you had fever, night sweats or hemotysis?: No Have you traveled outside the country in the last 6 months?: No Isolation: Standard ROS - Review of Systems Constitutional: No Symptoms Reported, Loss of Appetite. negative: See HPI, Chills, Diaphoresis, Fever, Malaise, Weakness, Irritable, Fatigue, Other Eyes: No Symptoms Reported ENTM: No Symptoms Reported. negative: See HPI, Ear Pain, Ear Discharge, Pulling on Ears, Hearing Loss, Nose Pain, Nose Discharge, Epistaxis, Nose Congestion, Mouth Pain, Mouth Swelling, Loose Teeth, Drooling, Throat Pain, Throat Swelling, Ear Foreign Body Respiratoy: No Symptoms Reported. negative: See HPI, Productive Cough, Non- Productive Cough, Moist Cough, Dry Cough, Hacking Cough, Barking Cough, Brassy Cough, Orthopnea, Short of Breath, Stridor, Wheezing, Hemoptysis, Other Cardiovascular: No Symptoms Reported, Chest Pain. negative: See HPI, Edema, Palpitations, Syncope, Cyanosis, Skin Mottling, Other Gastrointestinal/Abdominal: No Symptoms Reported. negative: See HPI, Abdominal Pain, Constipation, Diarrhea, Nausea, Vomiting, Food Intolerance, Other Genitourinary: No Symptoms Reported. negative: See HPI, Discharge, Dysuria, Frequency, Hematuria, Pain, Bleeding, Other Neurological: No Symptoms Reported. negative: See HPI, Anxiety, Depressed, Emotional Problems, Headache, Numbness, Paresthesia, Pre-existing Deficit, Seizure, Tingling, Tremors, Weakness, Dizziness, Problems Walking, Speech Problem, Other Musculoskeletal: No Symptoms Reported Integumentary: No Symptoms Reported Hematologic/Lymphatic: No Symptoms Reported Endocrine: No Symptoms Reported Psychiatric: No Symptoms Reported PE - Vitals Vitals: Temperature 97.9 F Pulse Rate [Apical] 73 Pulse Rate 82 Respiratory Rate 23 Blood Pressure [Right Arm] 186/87 Blood Pressure [Left Arm] 198/91 Blood Pressure 200/91 O2 Sat by Pulse Oximetry 100 - General Limitations: No Limitations General Appearance: Alert, In Distress (mild) - Head Head Exam: Normal Inspection, Atraumatic, Normocephalic - Eyes Eye exam: Normal Appearance, PERRL, EOMI. negative: Scleral Icterus, Conjunctival Injection, Nystagmus, Miosis, Mydrasis, Periorbital Swelling, Periorbital Tenderness, Other - ENT ENT Exam: Normal Exam, Normal Oropharynx, Normal External Ear Exam, Mucous Membranes Moist, TM's Normal Bilaterally - Chest Chest Inspection: Normal Inspection, Symmetric Chest Wall Rise. negative: Tenderness, Rash, Abscess, Other - Respiratory Respiratory Exam: Normal Lung Sounds Bilat. negative: Accessory Muscle Use, Chest Wall Tenderness, Prolonged Expiratory Phase, Respiratory Distress, Stridor , Other Respiratory Exam: Bilateral Clear to Auscultation - Cardiovascular Cardiovascular Exam: Regular Rate, Normal Rhythm, Normal Heart Sounds. negative : Bradycardia, Tachycardia, Irregular Rhythm, Systolic Murmur, Diastolic Murmur , Rubs, Gallop, Clicks, JVD, +S1, +S2, +S3, +S4, Other Pulse: Normal Edema: Normal - Abdominal Exam Abdominal Exam: Normal Inspection, Normal Bowel Sounds, Soft Abdominal Tenderness: negative: RUQ, RLQ, LUQ, LLQ, Epigastrium, Suprapubic, Diffuse, Mild, Moderate, Severe, Other - Extremities Extremities Exam: Normal Inspection, Full ROM, Tenderness (right knee tender with brace intact), Normal Capillary Refill - Back Back Exam: Normal Inspection, Full ROM. negative: Tenderness, (R) CVA Tenderness, (L) CVA Tenderness, Muscle Spasm, Paraspinal Tenderness, Vertebral Tenderness, Rashes, (R) Sciatic Notch Tenderness, (L) Sciatic Notch Tendern, (R ) Straight Leg Raise, (L) Straight Leg Raise, Other - Neurologic Neurological Exam: Alert, Oriented X3, CN II-XII Intact, Normal Gait, Reflexes Normal - Psychiatric Psychiatric Exam: Normal Affect, Normal Mood - Skin Skin Exam: Warm, Dry, Intact, Normal Color ROR - Labs Reviewed Laboratory Results Reviewed?: Yes (all labs and x-ray results reviewed and discussed with patient) Result Diagrams: 08/09/17 10:27 08/09/17 10:27 Laboratory: WBC 5.9 X10^3/uL (3.6-10.0) 08/09/17 10:27 RBC 3.70 X10^6/uL (4.7-6.0) L 08/09/17 10:27 Hgb 10.8 g/dL (13.5-18.0) L 08/09/17 10:27 Hct 32.8 % (42.0-54.0) L 08/09/17 10:27 MCV 88.5 fL (80.0-100.0) 08/09/17 10:27 MCH 29.2 pg (27.0-34.0) 08/09/17 10:27 MCHC 33.0 g/dL (33.0-35.0) 08/09/17 10:27 RDW 19.1 % (11.6-16.5) H 08/09/17 10:27 Plt Count 133 X10^3/uL (150.0-450.0) L 08/09/17 10:27 MPV 9.3 fL (7.4-11.0) 08/09/17 10:27 Neut % 73.9 % (42.0-75.0) 08/09/17 10:27 Lymph % 13.9 % (21.0-51.0) L 08/09/17 10:27 [place] % 10.1 % (0.0-13.0) 08/09/17 10:27 Eos % 1.3 % (0.9-2.9) 08/09/17 10:27 Baso % 0.8 % (0.2-1.0) 08/09/17 10:27 Neut # 4.3 x10^3/uL (2.2-4.8) 08/09/17 10:27 Lymph # 0.8 X10^3/uL (1.3-2.9) L 08/09/17 10:27 [place] # 0.6 x10^3/uL (0.3-0.8) 08/09/17 10:27 Eos # 0.1 x10^3/uL (0.0-0.2) 08/09/17 10:27 Baso # 0.0 X10^3/uL (0.0-0.1) 08/09/17 10:27 Absolute Nucleated RBC 0.0 /100WBC 08/09/17 10:27 INR Target Range - 08/09/17 10:27 INR 1.04 (0.8-1.3) 08/09/17 10:27 PTT 30.2 SECONDS (22.9-36.5) 08/09/17 10:27 PTT Comment - 08/09/17 10:27 Sodium 139 mmol/L (136-145) 08/09/17 10:27 Corrected Sodium 144 mmol/L (136-145) 08/09/17 10:27 Potassium 3.8 mmol/L (3.5-5.1) 08/09/17 10:27 Chloride 102 mmol/L (98-107) 08/09/17 10:27 Carbon Dioxide 28.5 mmol/L (21-32) 08/09/17 10:27 BUN 22 mg/dL (7-18) H 08/09/17 10:27 Creatinine 1.71 mg/dL (0.70-1.30) H 08/09/17 10:27 Est GFR (MDRD) Af Amer 50 (>60) L 08/09/17 10:27 Est GFR (MDRD) Non-Af 41 (>60) L 08/09/17 10:27 Glucose 292 mg/dL (65-99) H 08/09/17 10:27 Calcium 9.8 mg/dL (8.5-10.1) 08/09/17 10:27 Corrected Calcium 10.6 mg/dL (8.5-10.1) H 08/09/17 10:27 Magnesium 1.8 mg/dL (1.7-2.9) 08/09/17 10:27 Total Bilirubin 0.60 mg/dL (0.2-1.0) 08/09/17 10:27 AST 21 Units/L (15-37) 08/09/17 10:27 ALT 45 Units/L (12-78) 08/09/17 10:27 Alkaline Phosphatase 55 Units/L (46-116) 08/09/17 10:27 Creatine Kinase 67 Units/L (39-308) 08/09/17 10:27 CK-MB (CK-2) 1.0 ng/mL (0-4.0) 08/09/17 10:27 CK/CKMB % Calc 1.5 % (<4) 08/09/17 10:27 Troponin I 0.06 ng/mL (0-1.5) 08/09/17 10:27 Total Protein 6.9 g/dL (6.4-8.2) 08/09/17 10:27 Albumin 3.0 g/dL (3.4-5.0) L 08/09/17 10:27 Globulin 3.9 g/dL (2.5-4.5) 08/09/17 10:27 Albumin/Globulin Ratio 0.8 Ratio (1.1-2.1) L 08/09/17 10:27 - XRAY XRAY Interpreted by: Radiologist (cxr: Cardiomegaly with prominence of the central pulmonary vasculature) - Diagnosis Discharge Problem: Chest pain, rule out acute myocardial infarction, Accelerated hypertension, CHF (congestive heart failure), Diabetes mellitus, Chronic kidney disease (CKD) - Discharge Plan Disposition: ADMITTED INPATIENT Condition: Stable - Follow ups/Referrals Follow ups/Referrals: THAI LUCIA [Primary Care Provider] - 3 days - Instructions
[2017-08-09 10:47] LABS: BASOPHILS % (AUTO) 0.8 % (0.2-1.0); EOSINOPHILS # (AUTO) 0.1 x10^3/uL (0.0-0.2); EOSINOPHILS % (AUTO) 1.3 % (0.9-2.9); HEMATOCRIT 32.8 % (42.0-54.0); HEMOGLOBIN 10.8 g/dL (13.5-18.0); LYMPHOCYTES # (AUTO) 0.8 X10^3/uL (1.3-2.9); LYMPHOCYTES % (AUTO) 13.9 % (21.0-51.0); MEAN CORPUSCULAR HEMOGLOBIN 29.2 pg (27.0-34.0); MEAN CORPUSCULAR VOLUME 88.5 fL (80.0-100.0); MEAN PLATELET VOLUME 9.3 fL (7.4-11.0); MONOCYTES # (AUTO) 0.6 x10^3/uL (0.3-0.8); MONOCYTES % (AUTO) 10.1 % (0.0-13.0); NEUTROPHILS # (AUTO) 4.3 x10^3/uL (2.2-4.8); NEUTROPHILS % (AUTO) 73.9 % (42.0-75.0); PLATELET COUNT 133 X10^3/uL (150.0-450.0); RED CELL DISTRIBUTION WIDTH 19.1 % (11.6-16.5); WHITE BLOOD COUNT 5.9 X10^3/uL (3.6-10.0)
--- NOTE | 2017-08-09 10:53 | RAD ---
HISTORY: Chest pain Study: Single-view of the chest Comparison: May 23, 2017 Findings: The cardiac silhouette is enlarged with left ventricular prominence. Mild prominence of the central p ulmonary vasculature is again demonstrated. The aorta is partially calcified and tortuous. Postoperat alma changes of midline sternotomy are noted. IMPRESSION: Cardiomegaly with mild prominence of the central pulmonary vasculature. Reported By:
[2017-08-09 10:59] LABS: CALCIUM 9.8 mg/dL (8.5-10.1); CARBON DIOXIDE 28.5 mmol/L (21-32); CREATININE 1.71 mg/dL (0.70-1.30); TROPONIN I 0.06 ng/mL (0-1.5)
[2017-08-09] MEDS ORDERED: ASPIRIN 81 MG CHEWTAB PO SCH (11:00)
[2017-08-09] MEDS ORDERED: NS 1000 ML 1,000 ML IV SCH (11:00)
[2017-08-09 11:03] LABS: CKMB % 1.5 % (<4); COR CA(FOR HYPOALB) 10.6 mg/dL (8.5-10.1); MAGNESIUM 1.8 mg/dL (1.7-2.9); TOTAL PROTEIN 6.9 g/dL (6.4-8.2)
[2017-08-09] MEDS ORDERED: LASIX IVP ONE ×2 (11:35→11:40)
[2017-08-09] MEDS ORDERED: LOVENOX INJ 80 MG SYR SC STA (13:03)
[2017-08-09] MEDS ORDERED: LOVENOX INJ 80 MG SYR SC ONE (13:28)
[2017-08-09] MEDS: NS 1000 ML 1,000 ML IV SCH (13:34)
[2017-08-09] MEDS ORDERED: HYDRALAZINE HCL PO SCH (14:00)
[2017-08-09 14:26] LABS: CKMB % 1.6 % (<4); CREATINE KINASE MB 1.1 ng/mL (0-4.0); TROPONIN I 0.06 ng/mL (0-1.5)
[2017-08-09] MEDS: HumuLIN R SC PRN ×2 (17:31→21:18)
[2017-08-09 20:06] LABS: CREATINE KINASE MB 1.2 ng/mL (0-4.0); TROPONIN I 0.1 ng/mL (0-1.5)
[2017-08-09] MEDS ORDERED: SIMVASTATIN 80 MG PO SCH (21:00)
[2017-08-09] MEDS: ZOCOR TAB 40 MG PO SCH (21:14)
[2017-08-09] MEDS: COREG TAB 12.5 MG PO SCH (21:14)
[2017-08-09] MEDS: ZETIA TAB 10 MG PO SCH (21:14)
[2017-08-09] MEDS: APRESOLINE TAB 25 MG PO SCH (21:15)
[2017-08-10 02:00] LABS: CKMB % 2.3 % (<4); CREATINE KINASE MB 1.2 ng/mL (0-4.0); TROPONIN I 0.13 ng/mL (0-1.5)
[2017-08-10] MEDS: APRESOLINE TAB 25 MG PO SCH ×3 (06:06→21:10)
[2017-08-10] MEDS: HumuLIN R SC PRN ×4 (06:08→21:11)
[2017-08-10 06:12] LABS: BASOPHILS % (AUTO) 0.7 % (0.2-1.0); EOSINOPHILS # (AUTO) 0.2 x10^3/uL (0.0-0.2); EOSINOPHILS % (AUTO) 2.9 % (0.9-2.9); HEMATOCRIT 31.1 % (42.0-54.0); HEMOGLOBIN 10.4 g/dL (13.5-18.0); LYMPHOCYTES # (AUTO) 1.3 X10^3/uL (1.3-2.9); LYMPHOCYTES % (AUTO) 21.2 % (21.0-51.0); MEAN CORPUSCULAR HEMOGLOBIN 29.8 pg (27.0-34.0); MEAN CORPUSCULAR HGB CONC 33.6 g/dL (33.0-35.0); MEAN CORPUSCULAR VOLUME 88.9 fL (80.0-100.0); MEAN PLATELET VOLUME 9.7 fL (7.4-11.0); MONOCYTES # (AUTO) 0.6 x10^3/uL (0.3-0.8); MONOCYTES % (AUTO) 9.4 % (0.0-13.0); NEUTROPHILS % (AUTO) 65.8 % (42.0-75.0); PLATELET COUNT 126 X10^3/uL (150.0-450.0); RED CELL DISTRIBUTION WIDTH 19.1 % (11.6-16.5)
[2017-08-10 06:15] LABS: ALBUMIN 2.7 g/dL (3.4-5.0); CALCIUM 9.2 mg/dL (8.5-10.1); CARBON DIOXIDE 30.1 mmol/L (21-32); CHOL/HDL RATIO 2.3 (0.0-5.0); COR CA(FOR HYPOALB) 10.2 mg/dL (8.5-10.1); CREATININE 1.8 mg/dL (0.70-1.30); TOTAL PROTEIN 6.3 g/dL (6.4-8.2)
[2017-08-10] MEDS ORDERED: MAGNESIUM SULFATE 1 GM/100 mL PREMIX 1 GM/100 ML BAG IV PRN (08:29)
[2017-08-10] MEDS ORDERED: POTASSIUM CHL 60 MEQ/NS 0.45% 500 ML IV PRN (08:29)
[2017-08-10] MEDS ORDERED: K-RIDER 10 MEQ/NS 100 ML 10 MEQ/100 ML BAG IV PRN (08:29)
[2017-08-10] MEDS ORDERED: MAG-OX TAB PO PRN (08:29)
[2017-08-10] MEDS ORDERED: POTASSIUM CHLORIDE LIQ 20 MEQ UDC PO PRN (08:29)
[2017-08-10] MEDS ORDERED: POTASSIUM CHL 40 MEQ/NS 0.45% 500 ML IV PRN (08:29)
[2017-08-10] MEDS ORDERED: K-LYTE EFFERVESCENT PO PRN (08:29)
[2017-08-10] MEDS ORDERED: FUROSEMIDE PO SCH (09:00)
[2017-08-10] MEDS ORDERED: NIFEDIPINE 90 MG PO SCH (09:00)
[2017-08-10] MEDS: LASIX PO SCH (09:29)
[2017-08-10] MEDS: PROSCAR PO SCH (09:30)
[2017-08-10] MEDS: ALDACTONE TAB 25 MG PO SCH (09:30)
[2017-08-10] MEDS: ECOTRIN TAB 325 MG PO SCH (09:30)
[2017-08-10] MEDS: PLAVIX PO SCH (09:31)
[2017-08-10] MEDS: PROCARDIA XL PO SCH (09:31)
[2017-08-10] MEDS: COREG TAB 12.5 MG PO SCH ×2 (09:31→21:11)
[2017-08-10 10:09] LABS: CKMB % 1.9 % (<4); TROPONIN I 0.13 ng/mL (0-1.5)
[2017-08-10 16:23] LABS: CKMB % 1.8 % (<4); CREATINE KINASE 56 Units/L (39-308); CREATINE KINASE MB < 1.0 ng/mL (0-4.0); TROPONIN I 0.11 ng/mL (0-1.5)
[2017-08-10] MEDS: ZOCOR TAB 40 MG PO SCH (21:11)
[2017-08-10] MEDS: ZETIA TAB 10 MG PO SCH (21:11)
[2017-08-10 22:09] LABS: CKMB % 1.9 % (<4); CREATINE KINASE 54 Units/L (39-308); CREATINE KINASE MB < 1.0 ng/mL (0-4.0); TROPONIN I 0.09 ng/mL (0-1.5)
--- NOTE | 2017-08-10 22:50 | DR.H&P ---
H&P - History & Physical for Day of: H&P Date: 08/09/17 - Chief Complaint Chief Complaint: CHEST PAIN, SHORT OF BREATH - Allergies Allergies/Adverse Reactions: Allergies Allergy/AdvReac Type Severity Reaction Status Date / Time lisinopril Allergy Verified 08/09/17 10:11 - Past Medical History Past Medical History: Arthritis, COPD, Coronary Artery Disease, Diabetes, Dyslipidemia, GERD, Hypertension Additional Medical History: Prostate Cancer, Bronchitis, Constipation - Past Surgical History Surgical History: CABG/Valve Surgery - Family History Family Medical History: Diabetes Mellitus, Hypertension - Social History Does patient currently use any type of tobacco product: No Have you used tobacco products in the last 12 months: No Type of Tobacco Use: None Does any household member use tobacco: No Alcohol Use: None Drug Use: None - Medications Home Medications: Carvedilol [COREG TAB 12.5 MG *] 1 tab PO BID 08/09/17 [History Confirmed ] Ezetimibe [ZETIA 10 MG *] 1 tab PO HS 08/09/17 [History Confirmed 08/09/17] Finasteride [Proscar] 1 tab PO DAILY 08/09/17 [History Confirmed 08/09/17] Furosemide [Lasix] 1 tab PO DAILY 08/09/17 [History Confirmed 08/09/17] Spironolactone 1 tab PO DAILY 08/09/17 [History Confirmed 08/09/17] - Review of Systems Constitutional: Weakness. denies: No Symptoms Reported, See HPI, Fever, Chills , Sweats, Malaise, Other Eyes: No Symptoms Reported. denies: See HPI, Pain, Vision Change, Conjunctivae Inflammation, Eyelid Inflammation, Redness, Other ENT: No Symptoms Reported. denies: See HPI, Ear Pain, Ear Discharge, Nose Pain , Nose Discharge, Nose Congestion, Mouth Pain, Mouth Swelling, Throat Pain, Throat Swelling, Other Respiratory: Shortness of Breath, SOB with Excertion. denies: No Symptoms Reported, See HPI, Cough, Dry, Hemoptysis, Pleuritic Pain, Sputum, Wheezing, Other Cardiovascular: Chest Pain, See HPI Gastrointestinal: No Symptoms Reported. denies: See HPI, Nausea, Vomiting, Abdominal Pain, Diarrhea, Constipation, Melena, Hematochezia, Other Genitourinary: No Symptoms Reported. denies: See HPI, Dysuria, Frequency, Incontinence, Hematuria, Retention, Other Musculoskeletal: No Symptoms Reported. denies: See HPI, Shoulder Pain, Arm Pain , Back Pain, Hand Pain, Leg Pain, Foot Pain, Neck Pain, Other Skin: No Symptoms Reported. denies: See HPI, Rash, Lesions, Jaundice, Bruising , Wound, Ecchymosis, Other Neurological: Weakness. denies: No Symptoms Reported, See HPI, Numbness, Incoordination, Change in Speech, Confusion, Seizures, Other - Physical Exam Vital Signs: Temperature 98.1 F Pulse Rate [Right Brachial] 76 Pulse Rate [Apical] 74 Pulse Rate 82 Respiratory Rate 20 Blood Pressure [Right Arm] 158/73 Blood Pressure [Left Arm] 198/91 Blood Pressure 200/91 O2 Sat by Pulse Oximetry 99 Oriented: Normal. negative: Time, Person, Place, Not Oriented, Unable to test, Other Eyes: Normal. negative: Blurred Vision, Diplopia, Discharge, Pain, Redness, Photophobia, Other Ear: Normal. negative: Right, Left, Swelling, Ecchymosis, Hemotypanum, Abrasion , Laceration Nose: Normal. negative: Injected, Discharge, Blood, Other Throat: Normal. negative: Tonsillar Hypertrophy, Red, Exudate, Dry, Other Respiratory: Diminished Throughout. negative: Clear Throughout, Rhonchi Throughout, Rales Throughout, Wheezes Throughout, RUL Clear, RML Clear, RLL Clear, MERY Clear, LML Clear, LLL Clear, RUL Diminished, RML Diminished, RLL Diminished, MERY Diminished, LML Diminished, LLL Diminished, RUL Absent, RML Absent, RLL Absent, MERY Absent, LML Absent, LLL Absent, RUL Rhonchi, RML Rhonchi , RLL Rhonchi, MERY Rhonchi, LML Rhonchi, LLL Rhonchi, RUL Insp. Wheeze, RML Insp. Wheeze, RLL Insp. Wheeze, MERY Insp.Wheeze, LML Insp.Wheeze, LLL Insp.Wheeze, RUL Exp. Wheeze, RML Exp. Wheeze, RLL Exp. Wheeze, MERY Exp. Wheeze , LML Exp. Wheeze, LLL Exp. Wheeze, RUL Rales, RML Rales, RLL Rales, MERY Rales, LML Rales, LLL Rales, RUL Rub, RML Rub, RLL Rub, MERY Rub, LML Rub, LLL Rub, RUL Squeak, RML Squeak, RLL Squeak, MERY Squeak, LML Squeak, LLL Squeak Cardiovascular: Normal. negative: Tachycardia, Bradycardia, Irregular, S3, S4, Systolic, Diastolic, Murmur, Edema, Other : Normal. negative: Dysuria, Hematuria, Frequency, Discharge, Testicular Pain , Bleeding, , Other Auscultation: Bowel Sounds: Normal. negative: Bruit, Absent, Increased, Decreased, High Pitched, Other Palpation: Normal. negative: Spleen Enlarged, Liver Enlarged, Mass Pulsatile, Other Tenderness: Normal. negative: Diffuse, RUQ, RLQ, LUQ, LLQ, Epigastric, Periumbilical, Suprapubic, Mild, Moderate, Severe, Rebound, Guarding, Rigidity, Other Skin: Normal Musculoskeletal: Normal. negative: Right, Left, Shoulder, Clavicle, Arm, Elbow , Forearm, Wrist, Hand, Hip, Thigh, Knee, Leg, Ankle, Foot, Back:Thoracic, Back: Lumbar, Back:Midline, Back:Paraspinous, Pelvis, Swelling, Tender, Deformity, Pulse Deficit, Motor Deficit, Sensory Deficit, Instability, Crepitance Psychiatric: Normal Mood Description: Calm Affect: Normal Speech Pattern: Clear - Assessment/Plan (1) Chest pain, rule out acute myocardial infarction Status: Acute Plan: SERIAL CARDIAC ENZYMES AND EKG, TELEMETRY, SUPPLEMENTAL OXYGEN, ASPIRIN 325MG PO DAILY, PLAVIX 75MG DAILY, NITROSTAT 0.4MG SL Q5M PRN, CONTINUE TO MONITOR (2) CHF (congestive heart failure) Qualifiers: Congestive heart failure type: systolic Congestive heart failure chronicity : acute on chronic Qualified Code(s): I50.23 - Acute on chronic systolic ( congestive) heart failure Status: Acute Plan: LASIX 80MG PO DAILY, CONTINUE COREG, CONTINUE ALDACTONE, MONITOR LABS AND CHEST XRAY (3) Accelerated hypertension Status: Chronic Plan: CONTINUE ZETIA, CONTINUE COREG, CONTINUE HYDRALAZINE, CONTINUE PROCARDIA, CONTINUE TO MONITOR (4) Diabetes mellitus Qualifiers: Diabetes mellitus type: type 2 Diabetes mellitus complication status: without complication Diabetes mellitus wet end operator insulin use: with intermediate use Qualified Code(s): E11.9 - Type 2 diabetes mellitus without complications ; Z79.4 - offset plate maker (current) use of insulin; Z79.4 - offset plate maker (current) use of insulin; Z79.4 - [facility] (current) use of insulin; Z79.4 - [facility] ( current) use of insulin Status: Chronic Plan: HUMULIN R SLIDING SCALE, OTBS, CONTINUE TO MONITOR
--- NOTE | 2017-08-10 23:28 | PCM.PROG ---
Progress Note - Progress Note for Day of Date: 08/10/17 - Subjective Subjective: WAS ADMITTED FOR CHEST PAIN R/O AMI, CHF, DIABETES, AND ACCELERATED HTN. TODAY, HE IS ALERT AND ORIENTED, LYING IN BED ON MORNING ROUNDS. HE IS NOTED WITH COMPLAINTS OF SHORNTESS OF BREATH THIS MORNING, BUT DENIES CHEST PAIN AT THE PRESENT TIME. HE DOES REPORT ONE EPISODE OF PAIN THROUGHOUT THE NIGHT. ON EXAMINATION, HEART IS REGULAR IN KARL AND RHYTHM. NORMAL SINUS RHYTHM IS SEEN ON THE COLLISION WORKER. LUNG SOUNDS ARE DIMINISHED THROUGHOUT. HE IS UTILIZING OXYGEN VIA NASAL CANNULA AT 2L/MIN. ABDOMEN IS ROUND , SOFT, AND NON-TENDER WITH NORMAL BOWEL SOUNDS NOTED IN ALL QUADRANT. GOOD MOVEMENT NOTED IN ALL EXTREMITIES. VITALS THIS MORNING ARE 98.6-67-20-100%-181/ 81. ABNORMAL LAB VALUES INCLUDE THE FOLLOWING: RBC 3.50, HGB 10.4, HCT 31.1, POTASSIUM 3.1, BUN 26, CREATININE 1.80, GLUCOSE 172, TOTAL PROTEIN 6.3, ALBUMIN 2.7, A/G RATIO 0.8. CARDIAC ENZYMES WNL. MOST RECENT EKG REPORTS SINUS RHYTHM WITH MULTIPLE PVC. HR 69. RIGHT BUNDLE BRANCH BLOCK. PROBABLE LEFT ATRIAL ENLARGEMENT. TODAY, WE PLAN TO CONTINUE SERIAL CARDIAC ENZYMES AND EKG. WE WILL RESUME HIS HOME MEDICATIONS THIS MORNING. WE PLAN TO FOLLOW UP WITH AM LABS AND CONTINUE TO MONITOR PATIENT. - Past Medical Family Social History Past Med/Fam/Surg Hx: No changes since H&P Allergies: Allergies lisinopril Allergy (Verified 08/09/17 10:11) - Review of Systems ROS: No change since H&P - Vital Signs and I&O's Vital Signs: Temperature 98.1 F Pulse Rate [Right Brachial] 76 Pulse Rate [Apical] 74 Pulse Rate 82 Respiratory Rate 20 Blood Pressure [Right Arm] 158/73 Blood Pressure [Left Arm] 198/91 Blood Pressure 200/91 O2 Sat by Pulse Oximetry 99 Intake and Output: Intake & Output 08/08/17 08/09/17 08/10/17 08/11/17 11:59 11:59 11:59 11:59 Intake Total 839 1333 Output Total 1600 1300 Balance -761 33 - Physical Exam Oriented: Normal. negative: Time, Person, Place, Not Oriented, Unable to test, Other Eyes: Normal. negative: Blurred Vision, Diplopia, Discharge, Pain, Redness, Photophobia, Other Ear: Normal. negative: Right, Left, Swelling, Ecchymosis, Hemotypanum, Abrasion , Laceration Nose: Normal. negative: Injected, Discharge, Blood, Other Throat: Normal. negative: Tonsillar Hypertrophy, Red, Exudate, Dry, Other Respiratory: Right, Left, Generalized, Diminished Cardiovascular: Normal. negative: Tachycardia, Bradycardia, Irregular, S3, S4, Systolic, Diastolic, Murmur, Edema, Other : Normal. negative: Dysuria, Hematuria, Frequency, Discharge, Testicular Pain , Bleeding, , Other Auscultation: Bowel Sounds: Normal. negative: Bruit, Absent, Increased, Decreased, High Pitched, Other Palpation: Normal Tenderness: Normal. negative: Diffuse, RUQ, RLQ, LUQ, LLQ, Epigastric, Periumbilical, Suprapubic, Mild, Moderate, Severe, Rebound, Guarding, Rigidity, Other Skin: Normal Musculoskeletal: Normal. negative: Right, Left, Shoulder, Clavicle, Arm, Elbow , Forearm, Wrist, Hand, Hip, Thigh, Knee, Leg, Ankle, Foot, Back:Thoracic, Back: Lumbar, Back:Midline, Back:Paraspinous, Pelvis, Swelling, Tender, Deformity, Pulse Deficit, Motor Deficit, Sensory Deficit, Instability, Crepitance Psychiatric: Normal Mood Description: Calm Affect: Normal Speech Pattern: Clear - Laboratory and Diagnostics Result Diagrams: 08/10/17 04:40 08/10/17 12:03 Labs: Laboratory WBC 6.0 X10^3/uL (3.6-10.0) 08/10/17 04:40 RBC 3.50 X10^6/uL (4.7-6.0) L 08/10/17 04:40 Hgb 10.4 g/dL (13.5-18.0) L 08/10/17 04:40 Hct 31.1 % (42.0-54.0) L 08/10/17 04:40 MCV 88.9 fL (80.0-100.0) 08/10/17 04:40 MCH 29.8 pg (27.0-34.0) 08/10/17 04:40 MCHC 33.6 g/dL (33.0-35.0) 08/10/17 04:40 RDW 19.1 % (11.6-16.5) H 08/10/17 04:40 Plt Count 126 X10^3/uL (150.0-450.0) L 08/10/17 04:40 MPV 9.7 fL (7.4-11.0) 08/10/17 04:40 Neut % 65.8 % (42.0-75.0) 08/10/17 04:40 Lymph % 21.2 % (21.0-51.0) 08/10/17 04:40 Becker % 9.4 % (0.0-13.0) 08/10/17 04:40 Eos % 2.9 % (0.9-2.9) 08/10/17 04:40 Baso % 0.7 % (0.2-1.0) 08/10/17 04:40 Neut # 4.0 x10^3/uL (2.2-4.8) 08/10/17 04:40 Lymph # 1.3 X10^3/uL (1.3-2.9) 08/10/17 04:40 Becker # 0.6 x10^3/uL (0.3-0.8) 08/10/17 04:40 Eos # 0.2 x10^3/uL (0.0-0.2) 08/10/17 04:40 Baso # 0.0 X10^3/uL (0.0-0.1) 08/10/17 04:40 Absolute Nucleated RBC 0.0 /100WBC 08/10/17 04:40 INR Target Range - 08/09/17 10:27 INR 1.04 (0.8-1.3) 08/09/17 10:27 PTT 30.2 SECONDS (22.9-36.5) 08/09/17 10:27 PTT Comment - 08/09/17 10:27 Sodium 142 mmol/L (136-145) 08/10/17 04:40 Corrected Sodium 144 mmol/L (136-145) 08/10/17 04:40 Potassium 3.7 mmol/L (3.5-5.1) 08/10/17 12:03 Chloride 104 mmol/L (98-107) 08/10/17 04:40 Carbon Dioxide 30.1 mmol/L (21-32) 08/10/17 04:40 BUN 26 mg/dL (7-18) H 08/10/17 04:40 Creatinine 1.80 mg/dL (0.70-1.30) H 08/10/17 04:40 Est GFR (MDRD) Af Amer 47 (>60) L 08/10/17 04:40 Est GFR (MDRD) Non-Af 39 (>60) L 08/10/17 04:40 Glucose 172 mg/dL (65-99) H 08/10/17 04:40 POC Glucose (mg/dL) 311 mg/dL (65-99) H 08/10/17 20:17 Calcium 9.2 mg/dL (8.5-10.1) 08/10/17 04:40 Corrected Calcium 10.2 mg/dL (8.5-10.1) H 08/10/17 04:40 Magnesium 1.7 mg/dL (1.7-2.9) 08/10/17 04:40 Total Bilirubin 0.30 mg/dL (0.2-1.0) 08/10/17 04:40 AST 19 Units/L (15-37) 08/10/17 04:40 ALT 41 Units/L (12-78) 08/10/17 04:40 Alkaline Phosphatase 48 Units/L (46-116) 08/10/17 04:40 Creatine Kinase 54 Units/L (39-308) 08/10/17 21:20 CK-MB (CK-2) < 1.0 ng/mL (0-4.0) 08/10/17 21:20 CK/CKMB % Calc 1.9 % (<4) 08/10/17 21:20 Troponin I 0.09 ng/mL (0-1.5) 08/10/17 21:20 Total Protein 6.3 g/dL (6.4-8.2) L 08/10/17 04:40 Albumin 2.7 g/dL (3.4-5.0) L 08/10/17 04:40 Globulin 3.6 g/dL (2.5-4.5) 08/10/17 04:40 Albumin/Globulin Ratio 0.8 Ratio (1.1-2.1) L 08/10/17 04:40 Triglycerides 59 mg/dL (0-150) 08/10/17 04:40 Cholesterol 123 mg/dL (0-200) 08/10/17 04:40 LDL Cholesterol, Calc 57 mg/dL (0-100) 08/10/17 04:40 HDL Cholesterol 54 mg/dL (40-60) 08/10/17 04:40 Cholesterol/HDL Ratio 2.3 (0.0-5.0) 08/10/17 04:40 - Plan (1) Chest pain, rule out acute myocardial infarction Status: Acute Plan: SERIAL CARDIAC ENZYMES AND EKG, TELEMETRY, SUPPLEMENTAL OXYGEN, ASPIRIN 325MG PO DAILY, PLAVIX 75MG DAILY, NITROSTAT 0.4MG SL Q5M PRN, CONTINUE TO MONITOR (2) CHF (congestive heart failure) Status: Acute Qualifiers: Congestive heart failure type: systolic Congestive heart failure chronicity : acute on chronic Qualified Code(s): I50.23 - Acute on chronic systolic ( congestive) heart failure Plan: LASIX 80MG PO DAILY, CONTINUE COREG, CONTINUE ALDACTONE, MONITOR LABS AND CHEST XRAY (3) Accelerated hypertension Status: Chronic Plan: CONTINUE ZETIA, CONTINUE COREG, CONTINUE HYDRALAZINE, CONTINUE PROCARDIA, CONTINUE TO MONITOR (4) Diabetes mellitus Status: Chronic Qualifiers: Diabetes mellitus type: type 2 Diabetes mellitus complication status: without complication Diabetes mellitus detention insulin use: with tongue stitcher use Qualified Code(s): E11.9 - Type 2 diabetes mellitus without complications ; Z79.4 - automotive assembler (current) use of insulin; Z79.4 - automotive assembler (current) use of insulin; Z79.4 - shelter (current) use of insulin; Z79.4 - automotive assembler ( current) use of insulin Plan: HUMULIN R SLIDING SCALE, OTBS, CONTINUE TO MONITOR
[2017-08-11 05:19] LABS: ALBUMIN 2.7 g/dL (3.4-5.0); CALCIUM 9.1 mg/dL (8.5-10.1); CARBON DIOXIDE 29.6 mmol/L (21-32); COR CA(FOR HYPOALB) 10.1 mg/dL (8.5-10.1); CREATININE 1.72 mg/dL (0.70-1.30); TOTAL PROTEIN 6.2 g/dL (6.4-8.2)
[2017-08-11] MEDS: APRESOLINE TAB 25 MG PO SCH (05:31)
[2017-08-11 06:07] LABS: BASOPHILS % (AUTO) 0.7 % (0.2-1.0); EOSINOPHILS # (AUTO) 0.2 x10^3/uL (0.0-0.2); EOSINOPHILS % (AUTO) 3.5 % (0.9-2.9); HEMATOCRIT 29.9 % (42.0-54.0); LYMPHOCYTES # (AUTO) 1.1 X10^3/uL (1.3-2.9); LYMPHOCYTES % (AUTO) 15.7 % (21.0-51.0); MEAN CORPUSCULAR HEMOGLOBIN 29.8 pg (27.0-34.0); MEAN CORPUSCULAR HGB CONC 33.6 g/dL (33.0-35.0); MEAN CORPUSCULAR VOLUME 88.8 fL (80.0-100.0); MEAN PLATELET VOLUME 9.8 fL (7.4-11.0); MONOCYTES # (AUTO) 0.5 x10^3/uL (0.3-0.8); MONOCYTES % (AUTO) 7.3 % (0.0-13.0); NEUTROPHILS # (AUTO) 4.9 x10^3/uL (2.2-4.8); NEUTROPHILS % (AUTO) 72.8 % (42.0-75.0); PLATELET COUNT 132 X10^3/uL (150.0-450.0); RED BLOOD COUNT 3.36 X10^6/uL (4.7-6.0); RED CELL DISTRIBUTION WIDTH 18.7 % (11.6-16.5); WHITE BLOOD COUNT 6.7 X10^3/uL (3.6-10.0)
--- NOTE | 2017-08-11 06:18 | RAD ---
Examination: Portable AP chest History: Chest pain Comparison reference 08/09/2017 Findings: Continued cardiomegaly and dilated aorta, postsurgical findings of sternotomy. No evidence for developing consolidation, pneumothorax or pleural effusion. Impression: Stable cardiomegaly, no interval change. Reported By:
[2017-08-11] MEDS ORDERED: SNACK - Diabetic Appropriate PO SCH (09:15)
[2017-08-11] MEDS: LASIX PO SCH (10:10)
[2017-08-11] MEDS: ECOTRIN TAB 325 MG PO SCH (10:10)
[2017-08-11] MEDS: PLAVIX PO SCH (10:10)
[2017-08-11] MEDS: ALDACTONE TAB 25 MG PO SCH (10:10)
[2017-08-11] MEDS: PROCARDIA XL PO SCH (10:10)
[2017-08-11] MEDS: PROSCAR PO SCH (10:11)
[2017-08-11] MEDS: COREG TAB 12.5 MG PO SCH (10:11)
[2017-08-11] MEDS: NS 1000 ML 1,000 ML IV SCH (10:11)
[2017-08-11 12:17] VITALS: BP 174/79
== END 2017-08-11 13:15 | disposition home or self-care (01) ==
LOC: ER 10:16 → ICU 13:26 → MED/SURG 08-10 14:47
PROVIDERS: ADMIT Internal Medicine; ATTEND Internal Medicine
DX: R07.89 Other chest pain (principal); I50.23 Acute on chronic systolic (congestive) heart failure; E11.65 Type 2 diabetes mellitus with hyperglycemia; Z79.4 Long term (current) use of insulin; I10 Essential (primary) hypertension; J44.9 Chronic obstructive pulmonary disease, unspecified; R06.02 Shortness of breath; I25.10 Atherosclerotic heart disease of native coronary artery without angina pectoris; E78.2 Mixed hyperlipidemia; K21.9 Gastro-esophageal reflux disease without esophagitis; N18.9 Chronic kidney disease, unspecified; R94.31 Abnormal electrocardiogram [ECG] [EKG]
CPT/HCPCS: 36415; 71010; 80053; 80061; 82550; 82553; 83735; 84132; 84484; 85025; 85610; 85730; 93005; 96365; 96372; 96374; 99284; A4216; A4222; S0138; G0378; J1650; J1815; J1940

== ENCOUNTER 2017-09-04 15:00 | Emergency (ER) | payer OTHER, MEDICAID ==
[2017-09-04 15:07] VITALS: BP 154/71; BMI 31.7
--- NOTE | 2017-09-04 16:11 | DR.GENAD ---
HPI - PCP Primary Care Physician: KHARI - Complaint/Symptoms Chief Complaint Doctors Comments: Patient admits to having an episode of allergic reaction to blood pressure (lisinopril) last year and discontinued taking the medication. He denies heacache,rash,dizzines or sob. His spouse states that the swelling has gone down a lot. Chief Complaint:: PT C/O SWELLING OF THE TOUNGE. PT STATES HE WAS GOING TO TAKE A NAP AND HE NOTICED HIS TOUNGE SWELLING. - Source History Provided: Patient - Mode of Arrival Mode of Arrival: Ambulatory - Timing Onset of Chief Complaint: 09/04/17 PMH - PMH Past Medical History: Yes Past Medical History: Arthritis, COPD, Coronary Artery Disease, Diabetes, Dyslipidemia, GERD, Hypertension Past Surgical History: Yes Surgical History: CABG/Valve Surgery - Family History History of Family Medical Conditions: Yes Family Medical History: Diabetes Mellitus, Hypertension - Social History Does any household member use tobacco: No Alcohol Use: None Do you use any recreational Drugs:: No Lives With: Family Lives Where: Home - infectious screening In the last 2 months have you had wt loss of >10#?: NO Have you had fever, night sweats or hemotysis?: No Have you traveled outside the country in the last 6 months?: No Isolation: Standard ROS - Review of Systems Eyes: No Symptoms Reported ENTM: No Symptoms Reported Respiratoy: No Symptoms Reported Cardiovascular: No Symptoms Reported Gastrointestinal/Abdominal: No Symptoms Reported Genitourinary: No Symptoms Reported Neurological: No Symptoms Reported Musculoskeletal: No Symptoms Reported Integumentary: No Symptoms Reported Hematologic/Lymphatic: No Symptoms Reported Endocrine: No Symptoms Reported Psychiatric: No Symptoms Reported All Other Systems: Reviewed and Negative PE - Vital Signs Vitals: Temperature 98.3 F Pulse Rate 87 Respiratory Rate 20 Blood Pressure [Right Arm] 157/70 Blood Pressure [Left Arm] 174/79 Blood Pressure 154/71 O2 Sat by Pulse Oximetry 98 - General General Appearance: Alert, In No Apparent Distress - Head Head Exam: Normal Inspection, Atraumatic - Eyes Eye exam: Normal Appearance, PERRL, EOMI - ENT ENT Exam: Normal Exam External Ear Exam: Normal External Inspection TM/Canal Exam: Bilateral Normal Nose Exam: Normal Nose Exam Mouth Exam: Normal Inspection Throat Exam: Normal Inspection - Neck Neck Exam: Normal Inspection - Chest Chest Inspection: Normal Inspection - Respiratory Respiratory Exam: Normal Lung Sounds Bilat Respiratory Exam: Bilateral Clear to Auscultation - Cardiovascular Cardiovascular Exam: Regular Rate, +S1. negative: Rubs, Gallop - Abdominal Exam Abdominal Exam: Normal Inspection Abdominal Tenderness: negative: RUQ, RLQ, LUQ, LLQ, Epigastrium, Suprapubic, Diffuse, Mild, Moderate, Severe, Other - Extremities Extremities Exam: Normal Inspection, Full ROM - Back Back Exam: Normal Inspection, Full ROM - Neurologic Neurological Exam: Alert, Oriented X3, CN II-XII Intact - Skin Skin Exam: Warm, Dry, Intact MDM - Additional Information Additional Information Obtained From: Old Records - Diagnosis Discharge Problem: Allergic reaction Qualifiers: Encounter type: initial encounter Qualified Code(s): T78.40XA - Allergy, unspecified, initial encounter - Discharge Plan Condition: Stable - Follow ups/Referrals Follow ups/Referrals: THAI LUCIA [Primary Care Provider] - 3 days - Instructions
== END 2017-09-04 16:24 | disposition home or self-care (01) ==
LOC: ER 15:22
DX: T78.40XA Allergy, unspecified, initial encounter (principal)
CPT/HCPCS: 99281; 99282

== ENCOUNTER → 2017-11-01 | Outpatient (CLI) | payer OTHER, MEDICAID ==
[2017-11-01 10:14] LABS: EOSINOPHILS # (AUTO) 0.2 x10^3/uL (0.0-0.2); EOSINOPHILS % (AUTO) 3.5 % (0.9-2.9); HEMATOCRIT 30.8 % (42.0-54.0); HEMOGLOBIN 10.4 g/dL (13.5-18.0); HEMOGLOBIN A1C 8.8 %; LYMPHOCYTES # (AUTO) 1.1 X10^3/uL (1.3-2.9); LYMPHOCYTES % (AUTO) 21.8 % (21.0-51.0); MEAN CORPUSCULAR HEMOGLOBIN 30.6 pg (27.0-34.0); MEAN CORPUSCULAR HGB CONC 33.8 g/dL (33.0-35.0); MEAN CORPUSCULAR VOLUME 90.7 fL (80.0-100.0); MONOCYTES # (AUTO) 0.5 x10^3/uL (0.3-0.8); MONOCYTES % (AUTO) 9.5 % (0.0-13.0); NEUTROPHILS # (AUTO) 3.3 x10^3/uL (2.2-4.8); NEUTROPHILS % (AUTO) 64.2 % (42.0-75.0); PLATELET COUNT 165 X10^3/uL (150.0-450.0); RED BLOOD COUNT 3.39 X10^6/uL (4.7-6.0); RED CELL DISTRIBUTION WIDTH 14.1 % (11.6-16.5); WHITE BLOOD COUNT 5.1 X10^3/uL (3.6-10.0)
[2017-11-01 10:19] LABS: ALANINE AMINOTRANSFERASE 41 Units/L (12-78); ALBUMIN 3.5 g/dL (3.4-5.0); ALKALINE PHOSPHATASE 53 Units/L (46-116); ASPARTATE AMINO TRANSFERASE 21 Units/L (15-37); BLOOD UREA NITROGEN 21 mg/dL (7-18); CALCIUM 8.8 mg/dL (8.5-10.1); CARBON DIOXIDE 26.9 mmol/L (21-32); CHLORIDE 106 mmol/L (98-107); CHOL/HDL RATIO 2.1 (0.0-5.0); CHOLESTEROL 128 mg/dL (0-200); CREATININE 1.86 mg/dL (0.70-1.30); HDL CHOLESTEROL 61 mg/dL (40-60); SODIUM 143 mmol/L (136-145); TOTAL PROTEIN 7.2 g/dL (6.4-8.2); TRIGLYCERIDES 40 mg/dL (0-150); eGFR BLACK RACES 45 (>60); eGFR NON BLACK RACES 37 (>60)
[2017-11-03 10:47] LABS: TOTAL PSA 12.85 ng/mL (0.13-4.0)
== END ==
LOC: LAB 09:41
PROVIDERS: ATTEND Nurse Practitioner Family
DX: E11.65 Type 2 diabetes mellitus with hyperglycemia (principal); I10 Essential (primary) hypertension; I25.10 Atherosclerotic heart disease of native coronary artery without angina pectoris; I42.0 Dilated cardiomyopathy; E78.2 Mixed hyperlipidemia; R97.20 Elevated prostate specific antigen [PSA]
CPT/HCPCS: 36415; 80053; 80061; 83036; 84153; 84154; 85025

== ENCOUNTER 2018-04-09 09:03 | Observation (INO) ==
[2018-04-09 09:06] VITALS: BMI 22.1
[2018-04-09] MEDS ORDERED: SOLU-Medrol 125 MG VIAL IVP ONE (09:11)
[2018-04-09] MEDS ORDERED: SOLU-Medrol 125 MG VIAL ONE (09:11)
[2018-04-09] MEDS ORDERED: ZANTAC INJ 50 MG in NS 50 ML IV 50 ML IV ONE (09:11)
[2018-04-09] MEDS ORDERED: BENADRYL INJ 50 MG VIAL ONE ×2 (09:11→10:04)
[2018-04-09] MEDS ORDERED: ZANTAC INJ ONE (09:12)
[2018-04-09] MEDS ORDERED: NS 100 ML IV 100 ML IV ONE (09:12)
[2018-04-09] MEDS ORDERED: ADRENALINE CHL INJ IVP ONE (09:13)
[2018-04-09] MEDS ORDERED: ADRENALINE CHL INJ ONE ×2 (09:16→11:05)
[2018-04-09] MEDS ORDERED: ADRENALINE CHL INJ IM ONE ×2 (09:21→11:04)
--- NOTE | 2018-04-09 09:22 | DR.ALLERGY ---
HPI PCP Primary Care Physician: edi Complaint/Symptoms Chief Complaint:: PT C/O HAVING A ALLERGIC REACTION TO SOME MEDICATIONS THAT WAS GIVEN TO HIM LAST NIGHT IN THE ER DEPT. NOTED PT'S TOUNGE TO BE SWOLLEN. PT' S SIGNIFICANT OTHER STATES HE NOTICED IT WHEN HE WOKE UP THIS AM. PT APPEARS TO BE IN NO DISTRESS WHILE BREATHING. Source History Provided: Patient Mode of Arrival Mode of Arrival: Ambulatory Timing Onset of Chief Complaint: 04/09/18 PMH PMH Past Medical History: Yes Past Medical History: Arthritis, COPD, Coronary Artery Disease, Diabetes, Dyslipidemia, GERD and Hypertension Past Surgical History: Yes Surgical History: CABG/Valve Surgery Family History History of Family Medical Conditions: Yes Family Medical History: Diabetes Mellitus and Hypertension Social History Does any household member use tobacco: No Alcohol Use: None Do you use any recreational Drugs:: No Lives With: Family Lives Where: Home infectious screening In the last 2 months have you had wt loss of >10#?: NO Have you had fever, night sweats or hemotysis?: No Have you traveled outside the country in the last 6 months?: No Isolation: Standard ROS Review of Systems Constitutional: No Symptoms Reported Eyes: No Symptoms Reported ENTM: See HPI Respiratoy: No Symptoms Reported Cardiovascular: No Symptoms Reported Gastrointestinal/Abdominal: No Symptoms Reported Genitourinary: No Symptoms Reported Neurological: No Symptoms Reported Musculoskeletal: No Symptoms Reported Integumentary: No Symptoms Reported Hematologic/Lymphatic: No Symptoms Reported Endocrine: No Symptoms Reported Psychiatric: No Symptoms Reported All Other Systems: Reviewed and Negative PE Vitals Vital Signs: Temp Pulse Resp BP BP BP Pulse Ox 04/09/18 09:03 97.2 F L 74 20 181/77 97 04/08/18 20:31 155/72 155/72 08/11/17 04:00 157/70 Constitutional Limitations: No Limitations General Appearance: Alert and In No Apparent Distress Head Head Exam: Normal Inspection Eyes Eye exam: Normal Appearance ENT Mouth Exam: Tongue Swelling and Other; negative Normal Inspection, Drooling, Trismus, Lip Swelling, Tongue Elevation and Laceration Neck Neck Exam: Normal Inspection Chest Chest Inspection: Normal Inspection Respiratory Respiratory Exam: Normal Lung Sounds Bilat Cardiovascular Cardiovascular Exam: Regular Rate, Normal Rhythm, +S1 and +S2 Abdominal Exam Abdominal Exam: Normal Inspection, Normal Bowel Sounds and Soft Extremities Extremities Exam: Normal Inspection and Normal Capillary Refill Back Back Exam: Normal Inspection Neurologic Neurological Exam: Alert and Oriented X3 Psychiatric Psychiatric Exam: Normal Affect and Normal Mood Skin Skin Exam: Warm, Intact and Normal Color COURSE Reevaluation 1st: Improved Education/Counseling Education/Counseling: Patient, Family, Education and Counseling Educated On: Treatment, Diagnosis, Prognosis and Needs for Follow Up Diagnosis Discharge Problem: Angio-edema
[2018-04-09] MEDS ORDERED: BENADRYL INJ 50 MG VIAL IVP ONE (10:07)
[2018-04-09] MEDS ORDERED: DICLOFENAC SODIUM 25 MG PO PRN (16:27)
[2018-04-09] MEDS ORDERED: BENADRYL CAP/TAB 25 MG PO ONE (17:53)
[2018-04-09] MEDS: BENADRYL CAP 50 MG PO SCH (17:54)
[2018-04-09] MEDS: LASIX PO SCH (17:54)
[2018-04-09] MEDS ORDERED: ZOCOR TAB 40 MG PO SCH (21:00)
[2018-04-09] MEDS: APRESOLINE TAB 25 MG PO SCH (21:11)
[2018-04-09] MEDS: SOLU-Medrol 125 MG VIAL IVP SCH (21:11)
[2018-04-09] MEDS: COREG TAB 12.5 MG PO SCH (21:11)
[2018-04-09] MEDS ORDERED: SOLU-Medrol 40 MG VIAL IVP SCH (22:00)
[2018-04-09] MEDS ORDERED: SOLUMEDROL IV SCH (22:00)
[2018-04-10] MEDS: BENADRYL CAP 50 MG PO SCH ×2 (00:52→09:56)
[2018-04-10] MEDS: APRESOLINE TAB 25 MG PO SCH ×2 (05:25→13:28)
[2018-04-10 05:26] LABS: BASOPHILS % (AUTO) 0.1 % (0.2-1.0); HEMATOCRIT 29.3 % (42.0-54.0); HEMOGLOBIN 9.8 g/dL (13.5-18.0); LYMPHOCYTES # (AUTO) 0.5 X10^3/uL (1.3-2.9); LYMPHOCYTES % (AUTO) 7.4 % (21.0-51.0); MEAN CORPUSCULAR HEMOGLOBIN 29.6 pg (27.0-34.0); MEAN CORPUSCULAR HGB CONC 33.4 g/dL (33.0-35.0); MEAN CORPUSCULAR VOLUME 88.6 fL (80.0-100.0); MEAN PLATELET VOLUME 9.6 fL (7.4-11.0); MONOCYTES # (AUTO) 0.2 x10^3/uL (0.3-0.8); MONOCYTES % (AUTO) 3.7 % (0.0-13.0); NEUTROPHILS # (AUTO) 5.4 x10^3/uL (2.2-4.8); NEUTROPHILS % (AUTO) 88.8 % (42.0-75.0); PLATELET COUNT 141 X10^3/uL (150.0-450.0); RED BLOOD COUNT 3.31 X10^6/uL (4.7-6.0); RED CELL DISTRIBUTION WIDTH 15.1 % (11.6-16.5); WHITE BLOOD COUNT 6.1 X10^3/uL (3.6-10.0)
[2018-04-10] MEDS: SOLU-Medrol 125 MG VIAL IVP SCH ×2 (05:26→13:43)
[2018-04-10 05:32] LABS: ALBUMIN 2.7 g/dL (3.4-5.0); CALCIUM 8.9 mg/dL (8.5-10.1); CARBON DIOXIDE 29.3 mmol/L (21-32); COR CA(FOR HYPOALB) 9.9 mg/dL (8.5-10.1); CREATININE 2.48 mg/dL (0.70-1.30); TOTAL PROTEIN 6.7 g/dL (6.4-8.2)
[2018-04-10] MEDS: LASIX PO SCH (06:00)
[2018-04-10] MEDS ORDERED: ALDACTONE TAB 25 MG PO SCH (09:00)
[2018-04-10] MEDS ORDERED: ASPIRIN EC 81 MG PO SCH (09:00)
[2018-04-10] MEDS ORDERED: PROCARDIA XL PO SCH (09:00)
--- NOTE | 2018-04-10 09:41 | RAD ---
History: Allergic reaction Study : portable upright AP chest Comparison: August 11, 2017 Findings: There is unchanged moderate cardiomegaly. The lungs are clear. There is no edema or effusio n or congestion. Impression: Stable cardiomegaly, no acute disease. Reported By:
[2018-04-10] MEDS: COREG TAB 12.5 MG PO SCH (09:49)
[2018-04-10] MEDS: HumuLIN R SUBCUT PRN ×2 (09:56→16:39)
--- NOTE | 2018-04-10 13:45 | DR.H&P ---
H&P - History & Physical for Day of: H&P Date: 04/09/18 - Chief Complaint Chief Complaint: facial swelling, allergic reaction - History of Present Illness History of Present Illness: 80 BM ER ADMISSION AFTER PRESENTING WITH CO SEVERE FACIAL SWELLING STARTING RECEIVED A TORADOL IM INJECTION FOR ACUTE NECK PAIN IN THE ER ONE DAY PRIOR. PT HAS PMH OF HTN, CAD, CHF, CRF, OA DM, BPH. PT IS UNDER THE CARE OF [facility] AND VIKY CONRAD. PT DENIES HX OF ALLERGIC REACTION TO NSAIDS. PT WAS GIVEN SOLU MEDROL, BENADRYL, EPI, AND ZANTAC IN THE ER, ADMITTED FOR OBSERVATION. - Past Medical History Past Medical History: Coronary Artery Disease, Hypertension, Dyslipidemia, Diabetes, COPD, GERD, Arthritis Additional Medical History: Prostate Cancer, Bronchitis, Constipation - Past Surgical History Surgical History: CABG/Valve Surgery - Family History Family Medical History: Diabetes Mellitus, Cancer, Coronary Artery Disease - Social History Does patient currently use any type of tobacco product: No Have you used tobacco products in the last 12 months: No Type of Tobacco Use: None Does any household member use tobacco: No Alcohol Use: None Drug Use: None - Medications Home Medications: ketorolac [From Toradol] Allergy (Verified 04/09/18 12:25) lisinopril Allergy (Verified 04/08/18 17:23) - Review of Systems Constitutional: No Symptoms Reported Eyes: No Symptoms Reported ENT: Mouth Swelling Cardiovascular: No Symptoms Reported, Edema Gastrointestinal: No Symptoms Reported Genitourinary: No Symptoms Reported Musculoskeletal: Back Pain Skin: Rash (DIFFUSE REDNESS TO FACE) Neurological: Weakness - Physical Exam Vital Signs: Temperature 98.4 F Pulse Rate [Left Brachial] 69 Pulse Rate 74 Respiratory Rate 20 Blood Pressure [Right Arm] 176/74 Blood Pressure [Left Arm] 170/72 Blood Pressure 181/77 O2 Sat by Pulse Oximetry 94 Oriented: Normal Eyes: Redness Ear: Normal Nose: Other (PERIORAL AND FACIAL SWELLING, TONGUE SWELLING) Respiratory: RLL Diminished, LLL Diminished Cardiovascular: Normal, Murmur, Edema : Normal Auscultation: Bowel Sounds: Normal Palpation: Normal Tenderness: Normal Skin: Rash (REDNESS TO FACE) Musculoskeletal: Right, Left, Knee, Motor Deficit, Instability, Crepitance Mood Description: Calm Speech Pattern: Clear, Appropriate (LIMITED DUE TO FACIAL SWELLING) - Assessment/Plan (1) Allergic reaction Qualifiers: Encounter type: initial encounter Qualified Code(s): T78.40XA - Allergy, unspecified, initial encounter Status: Acute Plan: TREATED IN ER WITH SOLU MEDROL BENADRYL, EPI, ZANTAC. ADMITTED FOR OBSERVATION, MONITORING FOLLOWING ALLERGIC REACTION, CONTINUE HOME MEDS, BP CONTROL. RESP PRN, SOLU MEDROL IV, EKG AND CXR. BLOOD SUGAR CONTROL (2) Angio-edema Qualifiers: Encounter type: initial encounter Qualified Code(s): T78.3XXA - Angioneurotic edema, initial encounter Status: Acute (3) Chronic kidney disease (CKD) Status: Acute (4) CHF (congestive heart failure) Qualifiers: Qualified Code(s): I50.23 - Acute on chronic systolic (congestive) heart failure Status: Acute (5) Hypertension Qualifiers: Hypertension type: unspecified Qualified Code(s): I10 - Essential (primary ) hypertension Status: Chronic (6) Diabetes mellitus Qualifiers: Diabetes mellitus type: type 2 Diabetes mellitus fire adjuster insulin use: with fire adjuster use Diabetes mellitus complication status: without complication Qualified Code(s): E11.9 - Type 2 diabetes mellitus without complications; Z79.4 - bindery cutter operator (current) use of insulin; Z79.4 - bindery cutter operator ( current) use of insulin; Z79.4 - skilled nursing (current) use of insulin; Z79.4 - skilled nursing (current) use of insulin Status: Chronic (7) Coronary artery disease Status: Chronic - Allergies Allergies/Adverse Reactions: Allergies Allergy/AdvReac Type Severity Reaction Status Date / Time ketorolac [From Toradol] Allergy Verified 04/09/18 12:25 lisinopril Allergy Verified 04/08/18 17:23
--- NOTE | 2018-04-10 14:28 | PCM.DCPLAN ---
Discharge Summary - Admission Date Date of Admission: 04/09/18 - Discharge Date Discharge Date: 04/10/18 - Admission Diagnoses (1) Allergic reaction Status: Acute (2) Angio-edema Status: Acute (3) Chronic kidney disease (CKD) Status: Acute (4) CHF (congestive heart failure) Status: Acute (5) Hypertension Status: Chronic (6) Diabetes mellitus Status: Chronic (7) Coronary artery disease Status: Chronic - Discharge Diagnoses Discharge Diagnosis: SAME ADMISSION, RESOLUTION IN ACUTE ALLERGIC REACTION - Discharge Medications Discharge Medications: Prescriptions: - Hospital Course Vital Signs: Temperature 98.4 F Pulse Rate [Left Brachial] 69 Pulse Rate 74 Respiratory Rate 20 Blood Pressure [Right Arm] 176/74 Blood Pressure [Left Arm] 170/72 Blood Pressure 181/77 O2 Sat by Pulse Oximetry 94 Latest Lab Results: Laboratory Last Values WBC 6.1 X10^3/uL (3.6-10.0) 04/10/18 05:03 RBC 3.31 X10^6/uL (4.7-6.0) L 04/10/18 05:03 Hgb 9.8 g/dL (13.5-18.0) L 04/10/18 05:03 Hct 29.3 % (42.0-54.0) L 04/10/18 05:03 MCV 88.6 fL (80.0-100.0) 04/10/18 05:03 MCH 29.6 pg (27.0-34.0) 04/10/18 05:03 MCHC 33.4 g/dL (33.0-35.0) 04/10/18 05:03 RDW 15.1 % (11.6-16.5) 04/10/18 05:03 Plt Count 141 X10^3/uL (150.0-450.0) L 04/10/18 05:03 MPV 9.6 fL (7.4-11.0) 04/10/18 05:03 Neut % (Auto) 88.8 % (42.0-75.0) H 04/10/18 05:03 Lymph % (Auto) 7.4 % (21.0-51.0) L 04/10/18 05:03 [place] % (Auto) 3.7 % (0.0-13.0) 04/10/18 05:03 Eos % (Auto) 0.0 % (0.9-2.9) L 04/10/18 05:03 Baso % (Auto) 0.1 % (0.2-1.0) L 04/10/18 05:03 Neut # (Auto) 5.4 x10^3/uL (2.2-4.8) H 04/10/18 05:03 Lymph # (Auto) 0.5 X10^3/uL (1.3-2.9) L 04/10/18 05:03 [place] # (Auto) 0.2 x10^3/uL (0.3-0.8) L 04/10/18 05:03 Eos # (Auto) 0.0 x10^3/uL (0.0-0.2) 04/10/18 05:03 Baso # (Auto) 0.0 X10^3/uL (0.0-0.1) 04/10/18 05:03 Absolute Nucleated RBC 0.0 /100WBC 04/10/18 05:03 Sodium 138 mmol/L (136-145) 04/10/18 05:03 Corrected Sodium 145 mmol/L (136-145) 04/10/18 05:03 Potassium 4.0 mmol/L (3.5-5.1) 04/10/18 05:03 Chloride 103 mmol/L (98-107) 04/10/18 05:03 Carbon Dioxide 29.3 mmol/L (21-32) 04/10/18 05:03 BUN 38 mg/dL (7-18) H 04/10/18 05:03 Creatinine 2.48 mg/dL (0.70-1.30) H 04/10/18 05:03 Est GFR (MDRD) Af Amer 32 (>60) L 04/10/18 05:03 Est GFR (MDRD) Non-Af 27 (>60) L 04/10/18 05:03 Glucose 399 mg/dL (65-99) H 04/10/18 05:03 POC Glucose (mg/dL) 315 mg/dL (65-99) H 04/10/18 11:12 Calcium 8.9 mg/dL (8.5-10.1) 04/10/18 05:03 Corrected Calcium 9.9 mg/dL (8.5-10.1) 04/10/18 05:03 Total Bilirubin 0.30 mg/dL (0.2-1.0) 04/10/18 05:03 AST 21 Units/L (15-37) 04/10/18 05:03 ALT 27 Units/L (12-78) 04/10/18 05:03 Alkaline Phosphatase 47 Units/L (46-116) 04/10/18 05:03 Total Protein 6.7 g/dL (6.4-8.2) 04/10/18 05:03 Albumin 2.7 g/dL (3.4-5.0) L 04/10/18 05:03 Globulin 4.0 g/dL (2.5-4.5) 04/10/18 05:03 Albumin/Globulin Ratio 0.7 Ratio (1.1-2.1) L 04/10/18 05:03 Hospital Course: 80 BM ER ADMISSION AFTER PRESENTING WITH CO FACIAL SWELLING, SWELLING TO LIPS AND TONGUE. PT STATES HE HAD SHOT OF TORADOL ONE DAY PRIOR IN THE ER FOR TREATMENT OF NECK PAIN, NECK MUSCLE TENDERNESS. SWELLING WAS ONSET AFTER INJECTION. PT HAS PMH OF CAD, CHF, OA, CRF, HTN. BPH. PT RECEIVED IV SOLU MEDROL , BENADRYL, ZANTAC AND EPI X2. PT WAS ADMITTED FOR MONITORING FOR IMPROVEMENT OF REACTION. PT HOME MEDICATION RESUMED. PT HAD CXR AND EKG STABLE. PT EXPERIENCED ELEVATED BP DUE TO EPI INJECTIONS AND SOLU MEDROL. PT DENIES ANY SOB , WHEEZING OR CHEST PAIN. THIS AM PATIENTS FACIAL SWELLING HAS COMPLETELY RESOLVED. PT STATES HE FEELS MUCH BETTER AND ASKING TO GO HOME. PT HAS HISTORY OF ISOLATED SYSTOLIC HYPERTENSION, BP 160'S/70S. INFORMED PT AND FAMILY TO CONTINUE HOME MEDICATION AND KEEP BP DIARY INSTRUCTED TO FOLLOW UP WITH DR VAN IN ONE WEEK, AVOID NSAIDS, RETURN TO ER IF CONDITION CHANGES OR WORSENS. - Discharge Plan Disposition: HOME HEALTH SERVICE Condition: Stable - Follow ups/Referrals Follow ups/Referrals: THAI LUCIA [Primary Care Provider] - 04/17/18 10:00 am - Instructions Instructions: Angioedema, Tibx-[id number], Allergies, Adult, Lzid-bq-Gxdc, Diabetes Mellitus and Sick Day Management, Hypertension, Huhz-nc-[id number], Heart Failure, [id number]-vu-[id number] Forms: Patient Portal
[2018-04-10 15:30] VITALS: BP 148/69
[2018-04-10] MEDS ORDERED: SNACK - Diabetic Appropriate PO SCH (20:00)
== END 2018-04-10 17:45 | disposition home health service (06) ==
LOC: ER 09:03 → MED/SURG 09:03
PROVIDERS: ADMIT Internal Medicine; ATTEND Internal Medicine
DX: T88.7XXA Unspecified adverse effect of drug or medicament, initial encounter; T78.3XXA Angioneurotic edema, initial encounter; Z79.899 Other long term (current) drug therapy; X58.XXXA Exposure to other specified factors, initial encounter
CPT/HCPCS: 36415; 71010; 71045; 80053; 85025; 93005; 93010; 96365; 96372; 96374; 96375; 99284; A4222; G0378; J0171; J1200; J1815; J2780; J2930; J7050

== ENCOUNTER 2018-09-09 11:09 | Inpatient (IN) ==
[2018-09-09] MEDS: NORMODYNE INJ 20 MG VIAL IVP PRN ×2 (11:19→11:39)
[2018-09-09 11:23] LABS: ABG BASE EXCESS 3.3 mmol/L (-2.0-2.0); ABG HCO3 28.5 mmol/L (22-26)
[2018-09-09 11:36] LABS: BASOPHILS % (AUTO) 0.6 % (0.2-1.0); EOSINOPHILS % (AUTO) 0.3 % (0.9-2.9); HEMOGLOBIN 10.2 g/dL (13.5-18.0); LYMPHOCYTES # (AUTO) 0.5 X10^3/uL (1.3-2.9); LYMPHOCYTES % (AUTO) 8.1 % (21.0-51.0); MEAN CORPUSCULAR HEMOGLOBIN 29.3 pg (27.0-34.0); MEAN CORPUSCULAR HGB CONC 32.8 g/dL (33.0-35.0); MEAN CORPUSCULAR VOLUME 89.2 fL (80.0-100.0); MEAN PLATELET VOLUME 8.7 fL (7.4-11.0); MONOCYTES # (AUTO) 0.3 x10^3/uL (0.3-0.8); MONOCYTES % (AUTO) 4.3 % (0.0-13.0); NEUTROPHILS # (AUTO) 5.6 x10^3/uL (2.2-4.8); NEUTROPHILS % (AUTO) 86.7 % (42.0-75.0); PLATELET COUNT 167 X10^3/uL (150.0-450.0); RED BLOOD COUNT 3.48 X10^6/uL (4.7-6.0); RED CELL DISTRIBUTION WIDTH 16.2 % (11.6-16.5); WHITE BLOOD COUNT 6.5 X10^3/uL (3.6-10.0)
[2018-09-09 11:37] VITALS: BMI 24.0
[2018-09-09] MEDS ORDERED: NS 1000 ML 1,000 ML ONE (11:42)
[2018-09-09 11:43] LABS: HEMOGLOBIN A1C 5.9 %
[2018-09-09 11:47] LABS: ALANINE AMINOTRANSFERASE 33 Units/L (12-78); ALBUMIN 2.9 g/dL (3.4-5.0); ALKALINE PHOSPHATASE 55 Units/L (46-116); ASPARTATE AMINO TRANSFERASE 30 Units/L (15-37); BLOOD UREA NITROGEN 24 mg/dL (7-18); CALCIUM 9.3 mg/dL (8.5-10.1); CARBON DIOXIDE 29.8 mmol/L (21-32); CHLORIDE 107 mmol/L (98-107); COR CA(FOR HYPOALB) 10.2 mg/dL (8.5-10.1); CREATININE 1.95 mg/dL (0.70-1.30); SODIUM 143 mmol/L (136-145); TOTAL PROTEIN 6.8 g/dL (6.4-8.2); eGFR NON BLACK RACES 35 (>60)
--- NOTE | 2018-09-09 11:47 | RAD ---
HISTORY: Hyperglycemia. Nonresponsive Study: AP portable chest Comparison: 09/06/2018 Findings: Since the prior examination the patient has developed btey-rb-zimlzxqe pulmonary vascular congestion. Focal opacity is noted in the right lung base and right mid lung suggestive of pneumonia, possibly aspiration pneumonia. Moderate cardiomegaly is noted. The patient is status post median sternotomy. No acute bony abnormalities are identified. IMPRESSION: 1. Moderate cardiomegaly with lmjl-ew-lrnzmzjj pulmonary vascular congestion. 2. Focal opacity in the right mid lung and right lung base suggesting pneumonia, possibly aspiration pneumonia. Clinical correlation is recommended. Reported By:
[2018-09-09] MEDS ORDERED: NS 1000 ML 1,000 ML IV SCH ×2 (12:00→14:00)
[2018-09-09] MEDS ORDERED: NORMODYNE INJ 100 MG VIAL IVP ONE (12:10)
[2018-09-09] MEDS ORDERED: NORMODYNE INJ 100 MG VIAL 250 MG in NS 250 ML IV 200 ML IV PRN (12:56)
[2018-09-09] MEDS ORDERED: D50W ABBOJECT SYR ONE (12:58)
[2018-09-09] MEDS ORDERED: D50W ABBOJECT SYR IV ONE (13:17)
--- NOTE | 2018-09-09 13:17 | DR.GENAD ---
HPI Time Seen Time Seen by Provider: 09/09/18 11:15 Complaint/Symptoms Chief Complaint Doctors Comments: Patient was found at home by daughter unconscious, hypoglycemic and hypertensive. EMS called and arrived at the ED alert with blood glucose in 30s. He was given his second dose of D50 (one given in the field). He became alert but non verbal. PMH PMH Past Medical History: Arthritis, COPD, Coronary Artery Disease, Diabetes, Dyslipidemia, GERD and Hypertension Past Surgical History: Yes Surgical History: CABG/Valve Surgery Family History Family Medical History: Diabetes Mellitus, Cancer and Coronary Artery Disease Social History Do you use any recreational Drugs:: No PE Vital Signs Vitals: Temperature 97.6 F Pulse Rate [Left Radial] 64 Pulse Rate 58 Respiratory Rate 16 Blood Pressure [Right Arm] 184/86 Blood Pressure [Left Arm] 233/102 Blood Pressure 240/90 O2 Sat by Pulse Oximetry 100 General Limitations: No Limitations General Appearance: In No Apparent Distress and Appears Intoxicated Head Head Exam: Normal Inspection, Atraumatic and Normocephalic Eyes Eye exam: Normal Appearance and EOMI ENT ENT Exam: Normal Exam, Normal Oropharynx and Normal External Ear Exam External Ear Exam: Normal External Inspection TM/Canal Exam: Bilateral: Normal Nose Exam: Normal Nose Exam and Sinus Tenderness Mouth Exam: Normal Inspection Throat Exam: Normal Inspection and Tonsillar Erythema Neck Neck Exam: Normal Inspection, Full ROM and Trachea Midline Chest Chest Inspection: Normal Inspection and Symmetric Chest Wall Rise Respiratory Respiratory Exam: Normal Lung Sounds Bilat Respiratory Exam: Bilateral: Clear to Auscultation Cardiovascular Cardiovascular Exam: Regular Rate, Normal Rhythm and Systolic Murmur Abdominal Exam Abdominal Exam: Normal Inspection, Normal Bowel Sounds and Soft Extremities Extremities Exam: Normal Inspection, Full ROM and Tenderness Back Back Exam: Normal Inspection and Full ROM Neurologic Neurological Exam: Alert, Oriented X3 and CN II-XII Intact Psychiatric Psychiatric Exam: Normal Affect Skin Skin Exam: Warm, Dry and Intact COURSE Consultation Called: 13:00 Consultation Comments: Dr. Tran agreed to admit for further evaluation and treatment ROR Labs Reviewed Laboratory Results Reviewed?: Yes Result Diagrams: 09/09/18 11:24 09/09/18 11:24 Laboratory: WBC 6.5 X10^3/uL (3.6-10.0) 09/09/18 11:24 RBC 3.48 X10^6/uL (4.7-6.0) L 09/09/18 11:24 Hgb 10.2 g/dL (13.5-18.0) L 09/09/18 11:24 Hct 31.0 % (42.0-54.0) L 09/09/18 11:24 MCV 89.2 fL (80.0-100.0) 09/09/18 11:24 MCH 29.3 pg (27.0-34.0) 09/09/18 11:24 MCHC 32.8 g/dL (33.0-35.0) L 09/09/18 11:24 RDW 16.2 % (11.6-16.5) 09/09/18 11:24 Plt Count 167 X10^3/uL (150.0-450.0) 09/09/18 11:24 MPV 8.7 fL (7.4-11.0) 09/09/18 11:24 Neut % (Auto) 86.7 % (42.0-75.0) H 09/09/18 11:24 Lymph % (Auto) 8.1 % (21.0-51.0) L 09/09/18 11:24 [place] % (Auto) 4.3 % (0.0-13.0) 09/09/18 11:24 Eos % (Auto) 0.3 % (0.9-2.9) L 09/09/18 11:24 Baso % (Auto) 0.6 % (0.2-1.0) 09/09/18 11:24 Neut # (Auto) 5.6 x10^3/uL (2.2-4.8) H 09/09/18 11:24 Lymph # (Auto) 0.5 X10^3/uL (1.3-2.9) L 09/09/18 11:24 [place] # (Auto) 0.3 x10^3/uL (0.3-0.8) 09/09/18 11:24 Eos # (Auto) 0.0 x10^3/uL (0.0-0.2) 09/09/18 11:24 Baso # (Auto) 0.0 X10^3/uL (0.0-0.1) 09/09/18 11:24 Absolute Nucleated RBC 0.0 /100WBC 09/09/18 11:24 Sample Site Right brachial 09/09/18 11:10 ABG pH 7.410 (7.35-7.45) 09/09/18 11:10 ABG pCO2 45.0 mmHg (35.0-45.0) 09/09/18 11:10 ABG pO2 50.0 mmHg (80.0-100.0) L 09/09/18 11:10 ABG HCO3 28.5 mmol/L (22-26) H 09/09/18 11:10 ABG O2 Saturation 85.0 % (90-100) L 09/09/18 11:10 ABG Base Excess 3.3 mmol/L (-2.0-2.0) H 09/09/18 11:10 Mitch Test Na 09/09/18 11:10 A-a Gradient 43.0 mmHg 09/09/18 11:10 FiO2 21.0 09/09/18 11:10 Blood Gas Comments Maria Antonia well aw 09/09/18 11:10 Sodium 143 mmol/L (136-145) 09/09/18 11:24 Corrected Sodium TNP 09/09/18 11:24 Potassium 3.9 mmol/L (3.5-5.1) 09/09/18 11:24 Chloride 107 mmol/L (98-107) 09/09/18 11:24 Carbon Dioxide 29.8 mmol/L (21-32) 09/09/18 11:24 BUN 24 mg/dL (7-18) H 09/09/18 11:24 Creatinine 1.95 mg/dL (0.70-1.30) H 09/09/18 11:24 Est GFR (MDRD) Af Amer 42 (>60) L 09/09/18 11:24 Est GFR (MDRD) Non-Af 35 (>60) L 09/09/18 11:24 Glucose 83 mg/dL (65-99) 09/09/18 11:24 Hemoglobin A1c 5.9 % 09/09/18 11:24 Calcium 9.3 mg/dL (8.5-10.1) 09/09/18 11:24 Corrected Calcium 10.2 mg/dL (8.5-10.1) H 09/09/18 11:24 Total Bilirubin 0.30 mg/dL (0.2-1.0) 09/09/18 11:24 AST 30 Units/L (15-37) 09/09/18 11:24 ALT 33 Units/L (12-78) 09/09/18 11:24 Alkaline Phosphatase 55 Units/L (46-116) 09/09/18 11:24 Total Protein 6.8 g/dL (6.4-8.2) 09/09/18 11:24 Albumin 2.9 g/dL (3.4-5.0) L 09/09/18 11:24 Globulin 3.9 g/dL (2.5-4.5) 09/09/18 11:24 Albumin/Globulin Ratio 0.7 Ratio (1.1-2.1) L 09/09/18 11:24 Other Results Comments: Chest XR: Moderate cardiomegaly with mild to moderate pulmonary vascular congestion. Focal opacity in the right mid lung and right lung base suggesting pneumonia, possibly aspiration pneumonia. Clinical correlation is recommended. Procedures Procedure Comments Procedures: ABG Diagnosis Discharge Problem: Hypoglycemia, Hypertensive urgency Pneumonia Qualifiers: Pneumonia type: due to unspecified organism Laterality: right Lung location: lower lobe of lung Qualified Code(s): J18.1 - Lobar pneumonia, unspecified organism
[2018-09-09] MEDS ORDERED: SALINE 3% 15 ML NEB TX ONE (13:28)
[2018-09-09] MEDS ORDERED: SALINE 3% 15 ML NEB TX NEB ONE (13:30)
[2018-09-09] MEDS ORDERED: ROCEPHIN VIAL 1 GRAM ONE (13:40)
[2018-09-09] MEDS: ROCEPHIN VIAL 1 GRAM IVP SCH (13:44)
[2018-09-09] MEDS ORDERED: BENADRYL CAP 50 MG PO SCH (14:38)
[2018-09-09] MEDS ORDERED: DICLOFENAC SODIUM 25 MG PO PRN (14:38)
[2018-09-09] MEDS: PROCARDIA XL PO SCH ×2 (15:42→15:43)
[2018-09-09] MEDS: COREG TAB 12.5 MG PO SCH (15:42)
[2018-09-09] MEDS: CATAPRES TAB 0.1 MG PO PRN ×2 (15:43→20:41)
[2018-09-09] MEDS: D5 1/2 NS 1000 ML 1,000 ML IV SCH (15:43)
[2018-09-09] MEDS: APRESOLINE INJ 20 MG VIAL IVP PRN (17:21)
[2018-09-09] MEDS: ROBITUSSIN DM PO SCH ×2 (17:25→20:33)
[2018-09-09] MEDS: DUONEB 0.5 MG/3 MG NEB SCH ×2 (18:25→20:54)
[2018-09-09] MEDS: LIPITOR TAB 40 MG PO SCH (20:32)
[2018-09-09] MEDS: VIBRAMYCIN 100 MG in NS 100 ML IV + SPIKE MINIBAG* 100 ML IV SCH (20:32)
[2018-09-09] MEDS: ZANTAC PO SCH (20:47)
[2018-09-09] MEDS: PULMICORT NEB TX 0.5 MG NEB SCH (20:54)
[2018-09-09] MEDS: RESTORIL CAP 15 MG PO PRN (22:36)
[2018-09-10] MEDS: DUONEB 0.5 MG/3 MG NEB SCH ×6 (01:13→20:43)
[2018-09-10] MEDS: CATAPRES TAB 0.1 MG PO PRN (05:42)
[2018-09-10 06:10] LABS: BASOPHILS % (AUTO) 0.7 % (0.2-1.0); EOSINOPHILS # (AUTO) 0.1 x10^3/uL (0.0-0.2); EOSINOPHILS % (AUTO) 2.2 % (0.9-2.9); HEMATOCRIT 26.1 % (42.0-54.0); HEMOGLOBIN 8.8 g/dL (13.5-18.0); LYMPHOCYTES # (AUTO) 0.9 X10^3/uL (1.3-2.9); LYMPHOCYTES % (AUTO) 14.6 % (21.0-51.0); MEAN CORPUSCULAR HEMOGLOBIN 29.5 pg (27.0-34.0); MEAN CORPUSCULAR HGB CONC 33.5 g/dL (33.0-35.0); MEAN CORPUSCULAR VOLUME 88.1 fL (80.0-100.0); MEAN PLATELET VOLUME 9.4 fL (7.4-11.0); MONOCYTES # (AUTO) 0.6 x10^3/uL (0.3-0.8); NEUTROPHILS # (AUTO) 4.8 x10^3/uL (2.2-4.8); NEUTROPHILS % (AUTO) 73.5 % (42.0-75.0); PLATELET COUNT 140 X10^3/uL (150.0-450.0); RED BLOOD COUNT 2.97 X10^6/uL (4.7-6.0); RED CELL DISTRIBUTION WIDTH 16.3 % (11.6-16.5); WHITE BLOOD COUNT 6.5 X10^3/uL (3.6-10.0)
[2018-09-10 06:20] LABS: ALBUMIN 2.4 g/dL (3.4-5.0); CALCIUM 8.6 mg/dL (8.5-10.1); CARBON DIOXIDE 26.7 mmol/L (21-32); COR CA(FOR HYPOALB) 9.9 mg/dL (8.5-10.1); CREATININE 1.95 mg/dL (0.70-1.30); TOTAL PROTEIN 5.6 g/dL (6.4-8.2)
[2018-09-10] MEDS ORDERED: APRESOLINE TAB 25 MG PO SCH (09:00)
[2018-09-10] MEDS ORDERED: ASPIRIN PO SCH (09:00)
[2018-09-10] MEDS: VIBRAMYCIN 100 MG in NS 100 ML IV + SPIKE MINIBAG* 100 ML IV SCH ×2 (09:25→20:40)
[2018-09-10] MEDS: ROBITUSSIN DM PO SCH ×4 (09:25→21:25)
[2018-09-10] MEDS: ALDACTONE TAB 25 MG PO SCH (09:26)
[2018-09-10] MEDS: PROSCAR PO SCH (09:26)
[2018-09-10] MEDS: ROCEPHIN VIAL 1 GRAM IVP SCH (09:26)
[2018-09-10] MEDS: COREG TAB 12.5 MG PO SCH ×2 (09:26→20:39)
[2018-09-10] MEDS: PROCARDIA XL PO SCH ×2 (09:27)
[2018-09-10] MEDS: PLAVIX PO SCH (09:28)
[2018-09-10] MEDS: PULMICORT NEB TX 0.5 MG NEB SCH ×2 (09:34→20:43)
[2018-09-10 10:41] LABS: BILIRUBIN,URINE NEGATIVE (NEGATIVE); BLOOD/HEMOGLOBIN,URINE 1+ (NEGATIVE); GLUCOSE, URINE 1+ (NEGATIVE); KETONES,URINE NEGATIVE (NEGATIVE); LEUKOCYTE ESTERASE ,URINE NEGATIVE (NEGATIVE); NITRITES,URINE NEGATIVE (NEGATIVE); PROTEIN,URINE 4+ (NEGATIVE); UROBILINOGEN,URINE NORMAL (NORMAL)
[2018-09-10 10:43] LABS: APPEARANCE,URINE CLEAR (CLEAR); COLOR,URINE YELLOW (YELLOW)
[2018-09-10 10:49] LABS: AMORPHOUS SEDIMENT,UR 2+ /HPF (NEGATIVE); BACTERIA,URINE TRACE /HPF (NEGATIVE); MUCUS,URINE FEW /HPF (NEGATIVE); SQUAMOUS EPITHELIAL CELL,UR RARE /HPF (NEGATIVE)
[2018-09-10] MEDS ORDERED: LASIX IVP ONE (13:55)
[2018-09-10] MEDS ORDERED: LIPITOR TAB 40 MG PO SCH (14:00)
[2018-09-10] MEDS ORDERED: NIFEDIPINE 90 MG PO SCH (14:00)
[2018-09-10] MEDS: D5 1/2 NS 1000 ML 1,000 ML IV SCH (14:34)
[2018-09-10] MEDS: ULTRAM PO SCH ×2 (14:40→22:30)
[2018-09-10] MEDS ORDERED: K-RIDER 10 MEQ/NS 100 ML 10 MEQ/100 ML BAG IV PRN (16:48)
[2018-09-10] MEDS ORDERED: K-DUR TAB 20 MEQ PO PRN (16:48)
[2018-09-10] MEDS ORDERED: POTASSIUM CHL 40 MEQ/NS 0.45% 500 ML IV PRN (16:48)
[2018-09-10] MEDS ORDERED: MICRO K EXTEN CAP 10 MEQ PO PRN (16:48)
[2018-09-10] MEDS ORDERED: POTASSIUM CHL 60 MEQ/NS 0.45% 500 ML IV PRN (16:48)
[2018-09-10] MEDS ORDERED: KLOR-CON PO PRN (16:48)
[2018-09-10] MEDS ORDERED: POTASSIUM CHLORIDE LIQ 20 MEQ UDC PO PRN (16:48)
[2018-09-10] MEDS: APRESOLINE TAB 25 MG PO SCH (17:58)
[2018-09-10] MEDS: LOVENOX INJ 40 MG SYR SC SCH (17:58)
--- NOTE | 2018-09-10 17:59 | DR.H&P ---
H&P - History & Physical for Day of: H&P Date: 09/09/18 - Chief Complaint Chief Complaint: UNRESPONSIVE, LOW BLOOD SUGAR - History of Present Illness History of Present Illness: 83 BM ER ADMISSION AFTER Patient was found at home by daughter unconscious, hypoglycemic and hypertensive. EMS called and arrived at the ED alert with blood glucose in 30s. He was given his second dose of D50 (one given in the field). He became alert but non verbal. PT WAS HYPERTENSIVE IN ER. PT HAS PMH OF CHF, CAD, OA, DM CRF, HTN. PT ADMITTED TO ICU FOR TREATMENT OF HYPERTENSIVE CRISIS AND EVALUATION ACUTE ILLNESS. - Past Medical History Past Medical History: Coronary Artery Disease, Hypertension, Dyslipidemia, Diabetes, COPD, GERD, Arthritis Additional Medical History: Prostate Cancer, Bronchitis, Constipation - Past Surgical History Surgical History: CABG/Valve Surgery - Family History Family Medical History: Diabetes Mellitus, Cancer, Coronary Artery Disease - Social History Does patient currently use any type of tobacco product: No Have you used tobacco products in the last 12 months: No Type of Tobacco Use: None Does any household member use tobacco: No Alcohol Use: None Drug Use: None - Medications Home Medications: ketorolac [From Toradol] Allergy (Verified 09/06/18 16:24) lisinopril Allergy (Verified 09/06/18 16:24) CONTINUE taking the following medications atorvastatin 80 mg PO QHS 09/09/18 [History] hydralazine 100 mg PO DAILY 09/09/18 [History] insulin degludec [Tresiba U-100 Insulin] 30 units SUBCUT DAILY 09/09/18 [History] tramadol 50 mg PO TID 09/09/18 [History] - Review of Systems Constitutional: Weakness Eyes: No Symptoms Reported ENT: No Symptoms Reported Respiratory: SOB with Excertion Cardiovascular: No Symptoms Reported Gastrointestinal: No Symptoms Reported Genitourinary: Retention Musculoskeletal: Leg Pain Skin: No Symptoms Reported Neurological: Weakness - Physical Exam Vital Signs: Temperature 99.0 F Pulse Rate [Left Radial] 73 Pulse Rate 74 Respiratory Rate 18 Blood Pressure [Right Arm] 192/80 Blood Pressure [Left Arm] 233/102 Blood Pressure 179/71 O2 Sat by Pulse Oximetry 100 Oriented: Person Eyes: Normal Ear: Normal Nose: Normal Throat: Dry Respiratory: RLL Diminished, LLL Diminished Cardiovascular: Normal, Murmur : Normal Auscultation: Bowel Sounds: Normal Palpation: Normal Tenderness: Suprapubic, Mild Skin: Decreased Turgur Musculoskeletal: Right, Left, Knee, Back:Lumbar, Instability, Crepitance Mood Description: Calm Speech Pattern: Clear, Appropriate, Delayed - Assessment/Plan (1) Hypertensive urgency Status: Acute Plan: ADMIT ICU, CONTINUOUS CARDIAC MONITORING ADN BLOOD SUGAR CONTROL, EKG AND CXR ON ADMISSION. ADMISSION LABS WITH REPEAT AM LABS AND CXR. VERIFY HOME MEDICATION. BP CONTROL, SUPPLEMENTAL O2. STRICT I & OS (2) Hypoglycemia Status: Acute (3) Chronic kidney disease (CKD) Status: Acute (4) CHF (congestive heart failure) Qualifiers: Qualified Code(s): I50.23 - Acute on chronic systolic (congestive) heart failure Status: Acute (5) Hypertension Qualifiers: Hypertension type: unspecified Qualified Code(s): I10 - Essential (primary) hypertension Status: Chronic (6) Diabetes mellitus Qualifiers: Diabetes mellitus type: type 2 Diabetes mellitus lobsterman insulin use: with half-way use Diabetes mellitus complication status: without complication Qualified Code(s): E11.9 - Type 2 diabetes mellitus without complications; Z79.4 - FDC (current) use of insulin; Z79.4 - long term care pharmacist (current) use of insulin; Z79.4 - FDC (current) use of insulin; Z79.4 - long term care pharmacist (current) use of insulin Status: Chronic (7) Hyperlipidemia Qualifiers: Hyperlipidemia type: mixed hyperlipidemia Qualified Code(s): E78.2 - Mixed hyperlipidemia Status: Chronic (8) Coronary artery disease Status: Chronic (9) GERD (gastroesophageal reflux disease) Qualifiers: Esophagitis presence: esophagitis presence not specified Qualified Code(s): K21.9 - Gastro-esophageal reflux disease without esophagitis Status: Chronic - Allergies Allergies/Adverse Reactions: Allergies Allergy/AdvReac Type Severity Reaction Status Date / Time ketorolac [From Toradol] Allergy Verified 09/06/18 16:24 lisinopril Allergy Verified 09/06/18 16:24
--- NOTE | 2018-09-10 18:03 | PCM.PROG ---
Progress Note - Progress Note for Day of Date of Exam: 09/10/18 - Subjective Subjective: 83 BM ER ADMISSION WITH AMS FROM HYPOGLYCEMIA AND HYPERTENSIVE URGENCY. PT HAS CXR WITH POSSIBLE ASPIRATION PNEUMONIA. PT CURRENTLY ON IV ATBX WITH GENTLE IV HYDRATION AND RESUMED HOME MEDICATION. SPUTUM AND BLOOD CULTURES PENDING. PT HOME BP MEDICATION RESUMED. PT DENIES SOB THIS AM, CO URINARY RETENTION. TALBOT CATH ORDERED WITH STRICT I & OS - Past Medical Family Social History Past Med/Fam/Surg Hx: No changes since H&P Allergies: Allergies ketorolac [From Toradol] Allergy (Verified 09/06/18 16:24) lisinopril Allergy (Verified 09/06/18 16:24) - Review of Systems ROS: No change since H&P - Vital Signs and I&O's Vital Signs: Temperature 99.0 F Pulse Rate [Left Radial] 73 Pulse Rate 74 Respiratory Rate 18 Blood Pressure [Right Arm] 192/80 Blood Pressure [Left Arm] 233/102 Blood Pressure 179/71 O2 Sat by Pulse Oximetry 100 Intake and Output: Intake & Output 09/08/18 09/09/18 09/10/18 09/11/18 11:59 11:59 11:59 11:59 Intake Total 1050 / 1050 1550 / 1550 Output Total 80 / 80 2400 / 2400 Balance 970 / 970 -850 / -850 - Physical Exam Oriented: Person Eyes: Normal Ear: Normal Nose: Normal Throat: Dry Respiratory: Diminished Cardiovascular: Normal, Murmur : Normal Auscultation: Bowel Sounds: Normal Tenderness: Suprapubic, Mild Skin: Decreased Turgur Musculoskeletal: Right, Left, Knee, Back:Lumbar, Instability, Crepitance Mood Description: Calm Speech Pattern: Clear, Appropriate, Delayed - Laboratory and Diagnostics Result Diagrams: 09/10/18 05:37 09/10/18 05:37 Labs: Laboratory WBC 6.5 X10^3/uL (3.6-10.0) 09/10/18 05:37 RBC 2.97 X10^6/uL (4.7-6.0) L 09/10/18 05:37 Hgb 8.8 g/dL (13.5-18.0) L 09/10/18 05:37 Hct 26.1 % (42.0-54.0) L 09/10/18 05:37 MCV 88.1 fL (80.0-100.0) 09/10/18 05:37 MCH 29.5 pg (27.0-34.0) 09/10/18 05:37 MCHC 33.5 g/dL (33.0-35.0) 09/10/18 05:37 RDW 16.3 % (11.6-16.5) 09/10/18 05:37 Plt Count 140 X10^3/uL (150.0-450.0) L 09/10/18 05:37 MPV 9.4 fL (7.4-11.0) 09/10/18 05:37 Neut % (Auto) 73.5 % (42.0-75.0) 09/10/18 05:37 Lymph % (Auto) 14.6 % (21.0-51.0) L 09/10/18 05:37 [place] % (Auto) 9.0 % (0.0-13.0) 09/10/18 05:37 Eos % (Auto) 2.2 % (0.9-2.9) 09/10/18 05:37 Baso % (Auto) 0.7 % (0.2-1.0) 09/10/18 05:37 Neut # (Auto) 4.8 x10^3/uL (2.2-4.8) 09/10/18 05:37 Lymph # (Auto) 0.9 X10^3/uL (1.3-2.9) L 09/10/18 05:37 [place] # (Auto) 0.6 x10^3/uL (0.3-0.8) 09/10/18 05:37 Eos # (Auto) 0.1 x10^3/uL (0.0-0.2) 09/10/18 05:37 Baso # (Auto) 0.0 X10^3/uL (0.0-0.1) 09/10/18 05:37 Absolute Nucleated RBC 0.0 /100WBC 09/10/18 05:37 Sample Site Right brachial 09/09/18 11:10 ABG pH 7.410 (7.35-7.45) 09/09/18 11:10 ABG pCO2 45.0 mmHg (35.0-45.0) 09/09/18 11:10 ABG pO2 50.0 mmHg (80.0-100.0) L 09/09/18 11:10 ABG HCO3 28.5 mmol/L (22-26) H 09/09/18 11:10 ABG O2 Saturation 85.0 % (90-100) L 09/09/18 11:10 ABG Base Excess 3.3 mmol/L (-2.0-2.0) H 09/09/18 11:10 Mitch Test Na 09/09/18 11:10 A-a Gradient 43.0 mmHg 09/09/18 11:10 FiO2 21.0 09/09/18 11:10 Blood Gas Comments Maria Antonia well aw 09/09/18 11:10 Sodium 142 mmol/L (136-145) 09/10/18 05:37 Corrected Sodium 143 mmol/L (136-145) 09/10/18 05:37 Potassium 3.3 mmol/L (3.5-5.1) L 09/10/18 05:37 Chloride 107 mmol/L (98-107) 09/10/18 05:37 Carbon Dioxide 26.7 mmol/L (21-32) 09/10/18 05:37 BUN 25 mg/dL (7-18) H 09/10/18 05:37 Creatinine 1.95 mg/dL (0.70-1.30) H 09/10/18 05:37 Est GFR (MDRD) Af Amer 42 (>60) L 09/10/18 05:37 Est GFR (MDRD) Non-Af 35 (>60) L 09/10/18 05:37 Glucose 149 mg/dL (65-99) H 09/10/18 05:37 POC Glucose (mg/dL) 148 mg/dL (65-99) H 09/10/18 05:47 Hemoglobin A1c 5.9 % 09/09/18 11:24 Calcium 8.6 mg/dL (8.5-10.1) 09/10/18 05:37 Corrected Calcium 9.9 mg/dL (8.5-10.1) 09/10/18 05:37 Magnesium 1.8 mg/dL (1.7-2.9) 09/10/18 05:37 Total Bilirubin 0.40 mg/dL (0.2-1.0) 09/10/18 05:37 AST 26 Units/L (15-37) 09/10/18 05:37 ALT 27 Units/L (12-78) 09/10/18 05:37 Alkaline Phosphatase 45 Units/L (46-116) L 09/10/18 05:37 Total Protein 5.6 g/dL (6.4-8.2) L 09/10/18 05:37 Albumin 2.4 g/dL (3.4-5.0) L 09/10/18 05:37 Globulin 3.2 g/dL (2.5-4.5) 09/10/18 05:37 Albumin/Globulin Ratio 0.8 Ratio (1.1-2.1) L 09/10/18 05:37 Specimen Type Catherized urine 09/10/18 10:28 Urine Color Yellow (YELLOW) 09/10/18 10:28 Urine Appearance Clear (CLEAR) 09/10/18 10:28 Urine pH 5.0 (5.0 - 8.0) 09/10/18 10:28 Ur Specific [place] 1.015 (1.000-1.030) 09/10/18 10:28 Urine Protein 4+ (NEGATIVE) 09/10/18 10:28 Urine Glucose (UA) 1+ (NEGATIVE) 09/10/18 10:28 Urine Ketones Negative (NEGATIVE) 09/10/18 10:28 Urine Occult Blood 1+ (NEGATIVE) 09/10/18 10:28 Urine Nitrite Negative (NEGATIVE) 09/10/18 10:28 Urine Bilirubin Negative (NEGATIVE) 09/10/18 10:28 Urine Urobilinogen Normal (NORMAL) 09/10/18 10:28 Ur Leukocyte Esterase Negative (NEGATIVE) 09/10/18 10:28 Urine RBC 3-5 /HPF (NONE SEEN) 09/10/18 10:28 Urine WBC 0-2 /HPF (NONE SEEN) 09/10/18 10:28 Ur Squamous Epith Cells Rare /HPF (NEGATIVE) 09/10/18 10:28 Amorphous Sediment 2+ /HPF (NEGATIVE) 09/10/18 10:28 Urine Bacteria Trace /HPF (NEGATIVE) 09/10/18 10:28 Urine Mucus Few /HPF (NEGATIVE) 09/10/18 10:28 Ur Culture Indicated? No/not indicated 09/10/18 10:28 - Plan (1) Hypertensive urgency Status: Acute Plan: CONTINUOUS CARDIAC MONITORING ADN BLOOD SUGAR CONTROL, EKG AND CXR ON ADMISSION. ADMISSION LABS WITH REPEAT AM LABS. VERIFY HOME MEDICATION. BP CONTROL, SUPPLEMENTAL O2. STRICT I & OS (2) Pneumonia Status: Acute Qualifiers: Pneumonia type: due to unspecified organism Laterality: right Lung location: lower lobe of lung Qualified Code(s): J18.1 - Lobar pneumonia, unspecified organism Plan: BLOOD AND SPUTUM CULTURES IV ATBX, RESP THERAPY. SUPPLEMENTAL O2 (3) Hypoglycemia Status: Acute (4) Chronic kidney disease (CKD) Status: Acute (5) CHF (congestive heart failure) Status: Acute Qualifiers: Qualified Code(s): I50.23 - Acute on chronic systolic (congestive) heart failure (6) Hypertension Status: Chronic Qualifiers: Hypertension type: unspecified Qualified Code(s): I10 - Essential (primary) hypertension (7) Diabetes mellitus Status: Chronic Qualifiers: Diabetes mellitus type: type 2 Diabetes mellitus assistant terminal manager insulin use: with assistant terminal manager use Diabetes mellitus complication status: without complication Qualified Code(s): E11.9 - Type 2 diabetes mellitus without complications; Z79.4 - intermodal customer service (current) use of insulin; Z79.4 - intermodal customer service (current) use of insulin; Z79.4 - intermodal customer service (current) use of insulin; Z79.4 - intermodal customer service (current) use of insulin (8) Hyperlipidemia Status: Chronic Qualifiers: Hyperlipidemia type: mixed hyperlipidemia Qualified Code(s): E78.2 - Mixed hyperlipidemia (9) Coronary artery disease Status: Chronic (10) GERD (gastroesophageal reflux disease) Status: Chronic Qualifiers: Esophagitis presence: esophagitis presence not specified Qualified Code(s): K21.9 - Gastro-esophageal reflux disease without esophagitis
[2018-09-10] MEDS: LIPITOR TAB 40 MG PO SCH (20:39)
[2018-09-10] MEDS: ZANTAC PO SCH (20:40)
[2018-09-10] MEDS: NS 1/2 1000 ML IV 1,000 ML IV SCH (20:41)
[2018-09-10] MEDS ORDERED: NS 1/2 1000 ML IV 1,000 ML IV ONE (20:43)
[2018-09-11] MEDS: DUONEB 0.5 MG/3 MG NEB SCH ×6 (00:54→20:24)
[2018-09-11] MEDS: ULTRAM PO SCH ×3 (05:19→20:10)
[2018-09-11] MEDS: CATAPRES TAB 0.1 MG PO PRN (05:20)
--- NOTE | 2018-09-11 05:35 | RAD ---
Chest, one view Indication: Pneumonia Comparison: 09/09/2018 Findings: There is stable enlargement of the cardiac silhouette without congestive failure. Prior median sternotomy noted. There is persistent but improving airspace disease within the mid and lower right lung. No new focal infiltrate is identified. There is no significant effusion or pneumothorax. Impression: Stable cardiomegaly without congestive failure. Persistent but improving right airspace disease. Reported By:
[2018-09-11 06:10] LABS: BASOPHILS % (AUTO) 0.8 % (0.2-1.0); EOSINOPHILS # (AUTO) 0.2 x10^3/uL (0.0-0.2); EOSINOPHILS % (AUTO) 4.3 % (0.9-2.9); HEMOGLOBIN 8.6 g/dL (13.5-18.0); LYMPHOCYTES % (AUTO) 18.1 % (21.0-51.0); MEAN CORPUSCULAR HEMOGLOBIN 29.4 pg (27.0-34.0); MEAN CORPUSCULAR HGB CONC 33.2 g/dL (33.0-35.0); MEAN CORPUSCULAR VOLUME 88.5 fL (80.0-100.0); MEAN PLATELET VOLUME 9.1 fL (7.4-11.0); MONOCYTES # (AUTO) 0.5 x10^3/uL (0.3-0.8); MONOCYTES % (AUTO) 9.8 % (0.0-13.0); NEUTROPHILS # (AUTO) 3.8 x10^3/uL (2.2-4.8); PLATELET COUNT 145 X10^3/uL (150.0-450.0); RED BLOOD COUNT 2.94 X10^6/uL (4.7-6.0); WHITE BLOOD COUNT 5.6 X10^3/uL (3.6-10.0)
[2018-09-11 06:18] LABS: ALBUMIN 2.3 g/dL (3.4-5.0); CALCIUM 8.6 mg/dL (8.5-10.1); CARBON DIOXIDE 27.4 mmol/L (21-32); CREATININE 2.1 mg/dL (0.70-1.30); TOTAL PROTEIN 5.6 g/dL (6.4-8.2)
[2018-09-11] MEDS: PULMICORT NEB TX 0.5 MG NEB SCH ×2 (08:30→20:24)
[2018-09-11] MEDS ORDERED: INSULIN DEGLUDEC 24 UNIT subcut SCH (09:00)
[2018-09-11] MEDS: PROSCAR PO SCH (09:42)
[2018-09-11] MEDS: APRESOLINE TAB 25 MG PO SCH (09:42)
[2018-09-11] MEDS: PROCARDIA XL PO SCH ×2 (09:43→09:47)
[2018-09-11] MEDS: COREG TAB 12.5 MG PO SCH ×2 (09:44→20:11)
[2018-09-11] MEDS: ALDACTONE TAB 25 MG PO SCH (09:44)
[2018-09-11] MEDS: PLAVIX PO SCH (09:45)
[2018-09-11] MEDS: LOVENOX INJ 40 MG SYR SC SCH (09:45)
[2018-09-11] MEDS: ROCEPHIN VIAL 1 GRAM IVP SCH (09:46)
[2018-09-11] MEDS: VIBRAMYCIN 100 MG in NS 100 ML IV + SPIKE MINIBAG* 100 ML IV SCH ×2 (09:46→20:07)
[2018-09-11] MEDS: ROBITUSSIN DM PO SCH ×4 (09:47→20:10)
--- NOTE | 2018-09-11 15:34 | PCM.PROG ---
Progress Note - Progress Note for Day of Date of Exam: 09/11/18 - Subjective Subjective: 83 BM ER ADMISSION WITH AMS FROM HYPOGLYCEMIA AND HYPERTENSIVE URGENCY. PT HAS CXR WITH POSSIBLE ASPIRATION PNEUMONIA. PT CURRENTLY ON IV ATBX WITH GENTLE IV HYDRATION AND RESUMED HOME MEDICATION. SPUTUM AND BLOOD CULTURES PENDING. PT HOME BP MEDICATION RESUMED WITH CONTINUED ELEVATED SYSTOLIC BP. PT HAS PRN HYDRALAZINE. PT DENIES SOB THIS AM BUT HAS CENTRAL RHONCHI ON EXAM AND DIMINISHED LUNG BASES - Past Medical Family Social History Past Med/Fam/Surg Hx: No changes since H&P Allergies: Allergies ketorolac [From Toradol] Allergy (Verified 09/06/18 16:24) lisinopril Allergy (Verified 09/06/18 16:24) - Review of Systems ROS: No change since H&P - Vital Signs and I&O's Vital Signs: Temperature 98.0 F Pulse Rate [Left Radial] 75 Pulse Rate 69 Respiratory Rate 21 Blood Pressure [Right Arm] 180/82 Blood Pressure [Left Arm] 233/102 Blood Pressure 179/71 O2 Sat by Pulse Oximetry 95 Intake and Output: Intake & Output 09/09/18 09/10/18 09/11/18 09/12/18 11:59 11:59 11:59 11:59 Intake Total 1050 / 1050 2810 / 2810 Output Total 80 / 80 4550 / 4550 Balance 970 / 970 -1740 / -1740 - Physical Exam Oriented: Person Eyes: Normal Ear: Normal Nose: Normal Throat: Dry Respiratory: Diminished Cardiovascular: Normal, Murmur : Normal Auscultation: Bowel Sounds: Normal Tenderness: Suprapubic, Mild Skin: Decreased Turgur Musculoskeletal: Right, Left, Knee, Back:Lumbar, Instability, Crepitance Mood Description: Calm Speech Pattern: Clear, Appropriate - Laboratory and Diagnostics Result Diagrams: 09/11/18 05:34 09/11/18 05:34 Labs: 09/09/18 13:03 Blood Blood Culture - Preliminary 09/09/18 13:00 Blood Blood Culture - Preliminary Laboratory WBC 5.6 X10^3/uL (3.6-10.0) 09/11/18 05:34 RBC 2.94 X10^6/uL (4.7-6.0) L 09/11/18 05:34 Hgb 8.6 g/dL (13.5-18.0) L 09/11/18 05:34 Hct 26.0 % (42.0-54.0) L 09/11/18 05:34 MCV 88.5 fL (80.0-100.0) 09/11/18 05:34 MCH 29.4 pg (27.0-34.0) 09/11/18 05:34 MCHC 33.2 g/dL (33.0-35.0) 09/11/18 05:34 RDW 16.0 % (11.6-16.5) 09/11/18 05:34 Plt Count 145 X10^3/uL (150.0-450.0) L 09/11/18 05:34 MPV 9.1 fL (7.4-11.0) 09/11/18 05:34 Neut % (Auto) 67.0 % (42.0-75.0) 09/11/18 05:34 Lymph % (Auto) 18.1 % (21.0-51.0) L 09/11/18 05:34 [place] % (Auto) 9.8 % (0.0-13.0) 09/11/18 05:34 Eos % (Auto) 4.3 % (0.9-2.9) H 09/11/18 05:34 Baso % (Auto) 0.8 % (0.2-1.0) 09/11/18 05:34 Neut # (Auto) 3.8 x10^3/uL (2.2-4.8) 09/11/18 05:34 Lymph # (Auto) 1.0 X10^3/uL (1.3-2.9) L 09/11/18 05:34 [place] # (Auto) 0.5 x10^3/uL (0.3-0.8) 09/11/18 05:34 Eos # (Auto) 0.2 x10^3/uL (0.0-0.2) 09/11/18 05:34 Baso # (Auto) 0.0 X10^3/uL (0.0-0.1) 09/11/18 05:34 Absolute Nucleated RBC 0.0 /100WBC 09/11/18 05:34 Sample Site Right brachial 09/09/18 11:10 ABG pH 7.410 (7.35-7.45) 09/09/18 11:10 ABG pCO2 45.0 mmHg (35.0-45.0) 09/09/18 11:10 ABG pO2 50.0 mmHg (80.0-100.0) L 09/09/18 11:10 ABG HCO3 28.5 mmol/L (22-26) H 09/09/18 11:10 ABG O2 Saturation 85.0 % (90-100) L 09/09/18 11:10 ABG Base Excess 3.3 mmol/L (-2.0-2.0) H 09/09/18 11:10 Mitch Test Na 09/09/18 11:10 A-a Gradient 43.0 mmHg 09/09/18 11:10 FiO2 21.0 09/09/18 11:10 Blood Gas Comments Maria Antonia well aw 09/09/18 11:10 Sodium 142 mmol/L (136-145) 09/11/18 05:34 Corrected Sodium 143 mmol/L (136-145) 09/11/18 05:34 Potassium 3.4 mmol/L (3.5-5.1) L 09/11/18 05:34 Chloride 107 mmol/L (98-107) 09/11/18 05:34 Carbon Dioxide 27.4 mmol/L (21-32) 09/11/18 05:34 BUN 24 mg/dL (7-18) H 09/11/18 05:34 Creatinine 2.10 mg/dL (0.70-1.30) H 09/11/18 05:34 Est GFR (MDRD) Af Amer 39 (>60) L 09/11/18 05:34 Est GFR (MDRD) Non-Af 32 (>60) L 09/11/18 05:34 Glucose 143 mg/dL (65-99) H 09/11/18 05:34 POC Glucose (mg/dL) 139 mg/dL (65-99) H 09/11/18 05:14 Hemoglobin A1c 5.9 % 09/09/18 11:24 Calcium 8.6 mg/dL (8.5-10.1) 09/11/18 05:34 Corrected Calcium 10.0 mg/dL (8.5-10.1) 09/11/18 05:34 Magnesium 1.8 mg/dL (1.7-2.9) 09/10/18 05:37 Total Bilirubin 0.30 mg/dL (0.2-1.0) 09/11/18 05:34 AST 19 Units/L (15-37) 09/11/18 05:34 ALT 24 Units/L (12-78) 09/11/18 05:34 Alkaline Phosphatase 44 Units/L (46-116) L 09/11/18 05:34 Total Protein 5.6 g/dL (6.4-8.2) L 09/11/18 05:34 Albumin 2.3 g/dL (3.4-5.0) L 09/11/18 05:34 Globulin 3.3 g/dL (2.5-4.5) 09/11/18 05:34 Albumin/Globulin Ratio 0.7 Ratio (1.1-2.1) L 09/11/18 05:34 Specimen Type Catherized urine 09/10/18 10:28 Urine Color Yellow (YELLOW) 09/10/18 10:28 Urine Appearance Clear (CLEAR) 09/10/18 10:28 Urine pH 5.0 (5.0 - 8.0) 09/10/18 10:28 Ur Specific [place] 1.015 (1.000-1.030) 09/10/18 10:28 Urine Protein 4+ (NEGATIVE) 09/10/18 10:28 Urine Glucose (UA) 1+ (NEGATIVE) 09/10/18 10:28 Urine Ketones Negative (NEGATIVE) 09/10/18 10:28 Urine Occult Blood 1+ (NEGATIVE) 09/10/18 10:28 Urine Nitrite Negative (NEGATIVE) 09/10/18 10:28 Urine Bilirubin Negative (NEGATIVE) 09/10/18 10:28 Urine Urobilinogen Normal (NORMAL) 09/10/18 10:28 Ur Leukocyte Esterase Negative (NEGATIVE) 09/10/18 10:28 Urine RBC 3-5 /HPF (NONE SEEN) 09/10/18 10:28 Urine WBC 0-2 /HPF (NONE SEEN) 09/10/18 10:28 Ur Squamous Epith Cells Rare /HPF (NEGATIVE) 09/10/18 10:28 Amorphous Sediment 2+ /HPF (NEGATIVE) 09/10/18 10:28 Urine Bacteria Trace /HPF (NEGATIVE) 09/10/18 10:28 Urine Mucus Few /HPF (NEGATIVE) 09/10/18 10:28 Ur Culture Indicated? No/not indicated 09/10/18 10:28 - Plan (1) Hypertensive urgency Status: Acute Plan: CONTINUOUS CARDIAC MONITORING ADN BLOOD SUGAR CONTROL, EKG AND CXR ON ADMISSION. AM LABS. BP CONTROL, SUPPLEMENTAL O2. STRICT I & OS (2) Pneumonia Status: Acute Qualifiers: Pneumonia type: due to unspecified organism Laterality: right Lung location: lower lobe of lung Qualified Code(s): J18.1 - Lobar pneumonia, unspecified organism Plan: BLOOD AND SPUTUM CULTURES IV ATBX, RESP THERAPY. SUPPLEMENTAL O2 (3) Hypoglycemia Status: Acute (4) Chronic kidney disease (CKD) Status: Acute (5) CHF (congestive heart failure) Status: Acute Qualifiers: Qualified Code(s): I50.23 - Acute on chronic systolic (congestive) heart failure (6) Hypertension Status: Chronic Qualifiers: Hypertension type: unspecified Qualified Code(s): I10 - Essential (primary) hypertension (7) Diabetes mellitus Status: Chronic Qualifiers: Diabetes mellitus type: type 2 Diabetes mellitus termite exterminator insulin use: with termite exterminator use Diabetes mellitus complication status: without complication Qualified Code(s): E11.9 - Type 2 diabetes mellitus without complications; Z79.4 - termite exterminator (current) use of insulin; Z79.4 - termite exterminator (current) use of insulin; Z79.4 - assisted (current) use of insulin; Z79.4 - assisted (current) use of insulin (8) Hyperlipidemia Status: Chronic Qualifiers: Hyperlipidemia type: mixed hyperlipidemia Qualified Code(s): E78.2 - Mixed hyperlipidemia (9) Coronary artery disease Status: Chronic (10) GERD (gastroesophageal reflux disease) Status: Chronic Qualifiers: Esophagitis presence: esophagitis presence not specified Qualified Code(s): K21.9 - Gastro-esophageal reflux disease without esophagitis
[2018-09-11] MEDS ORDERED: NS 1/2 1000 ML IV 1,000 ML IV ONE (17:33)
[2018-09-11] MEDS: NS 1/2 1000 ML IV 1,000 ML IV SCH ×2 (18:30→18:51)
[2018-09-11] MEDS: ZANTAC PO SCH (20:10)
[2018-09-11] MEDS: RESTORIL CAP 15 MG PO PRN (20:10)
[2018-09-11] MEDS: LIPITOR TAB 40 MG PO SCH (20:11)
[2018-09-11] MEDS ORDERED: VALIUM INJ IVP PRN (21:53)
[2018-09-11] MEDS ORDERED: VALIUM PO PRN (22:39)
[2018-09-11] MEDS ORDERED: VALIUM ONE (22:41)
[2018-09-12] MEDS: DUONEB 0.5 MG/3 MG NEB SCH ×6 (00:02→20:38)
[2018-09-12] MEDS: NS 1/2 1000 ML IV 1,000 ML IV SCH ×2 (05:28→10:59)
[2018-09-12 05:45] LABS: BASOPHILS # (AUTO) 0.1 X10^3/uL (0.0-0.1); BASOPHILS % (AUTO) 0.9 % (0.2-1.0); EOSINOPHILS # (AUTO) 0.3 x10^3/uL (0.0-0.2); EOSINOPHILS % (AUTO) 4.4 % (0.9-2.9); HEMATOCRIT 27.5 % (42.0-54.0); HEMOGLOBIN 8.9 g/dL (13.5-18.0); LYMPHOCYTES # (AUTO) 0.8 X10^3/uL (1.3-2.9); LYMPHOCYTES % (AUTO) 14.1 % (21.0-51.0); MEAN CORPUSCULAR HEMOGLOBIN 28.9 pg (27.0-34.0); MEAN CORPUSCULAR HGB CONC 32.5 g/dL (33.0-35.0); MEAN CORPUSCULAR VOLUME 88.8 fL (80.0-100.0); MEAN PLATELET VOLUME 8.4 fL (7.4-11.0); MONOCYTES # (AUTO) 0.6 x10^3/uL (0.3-0.8); NEUTROPHILS # (AUTO) 4.2 x10^3/uL (2.2-4.8); NEUTROPHILS % (AUTO) 70.6 % (42.0-75.0); PLATELET COUNT 155 X10^3/uL (150.0-450.0); RED CELL DISTRIBUTION WIDTH 16.5 % (11.6-16.5); WHITE BLOOD COUNT 5.9 X10^3/uL (3.6-10.0)
[2018-09-12 06:00] LABS: ALBUMIN 2.5 g/dL (3.4-5.0); CALCIUM 8.7 mg/dL (8.5-10.1); CARBON DIOXIDE 29.4 mmol/L (21-32); COR CA(FOR HYPOALB) 9.9 mg/dL (8.5-10.1); CREATININE 2.11 mg/dL (0.70-1.30)
[2018-09-12] MEDS: ROBITUSSIN DM PO SCH ×4 (08:41→21:12)
[2018-09-12] MEDS: ULTRAM PO SCH ×2 (08:41→21:12)
[2018-09-12] MEDS: ROCEPHIN VIAL 1 GRAM IVP SCH (08:41)
[2018-09-12] MEDS: APRESOLINE TAB 25 MG PO SCH (08:42)
[2018-09-12] MEDS: PROSCAR PO SCH (08:42)
[2018-09-12] MEDS: ALDACTONE TAB 25 MG PO SCH (08:42)
[2018-09-12] MEDS: COREG TAB 12.5 MG PO SCH ×2 (08:43→21:11)
[2018-09-12] MEDS: PROCARDIA XL PO SCH ×2 (08:43)
[2018-09-12] MEDS: PLAVIX PO SCH (08:44)
[2018-09-12] MEDS: LOVENOX INJ 40 MG SYR SC SCH (08:44)
[2018-09-12] MEDS: VIBRAMYCIN 100 MG in NS 100 ML IV + SPIKE MINIBAG* 100 ML IV SCH ×2 (08:46→21:13)
[2018-09-12] MEDS: PULMICORT NEB TX 0.5 MG NEB SCH ×2 (09:19→20:38)
[2018-09-12] MEDS ORDERED: NS 1/2 1000 ML IV 1,000 ML IV ONE (10:58)
[2018-09-12] MEDS: ZANTAC PO SCH (21:11)
[2018-09-12] MEDS: LIPITOR TAB 40 MG PO SCH (21:11)
[2018-09-13] MEDS: DUONEB 0.5 MG/3 MG NEB SCH ×6 (00:21→20:25)
[2018-09-13 06:05] LABS: BASOPHILS % (AUTO) 0.4 % (0.2-1.0); EOSINOPHILS # (AUTO) 0.2 x10^3/uL (0.0-0.2); EOSINOPHILS % (AUTO) 3.5 % (0.9-2.9); HEMATOCRIT 26.1 % (42.0-54.0); HEMOGLOBIN 8.7 g/dL (13.5-18.0); LYMPHOCYTES # (AUTO) 0.8 X10^3/uL (1.3-2.9); LYMPHOCYTES % (AUTO) 12.4 % (21.0-51.0); MEAN CORPUSCULAR HEMOGLOBIN 29.2 pg (27.0-34.0); MEAN CORPUSCULAR HGB CONC 33.2 g/dL (33.0-35.0); MEAN CORPUSCULAR VOLUME 88.1 fL (80.0-100.0); MEAN PLATELET VOLUME 8.9 fL (7.4-11.0); MONOCYTES # (AUTO) 0.7 x10^3/uL (0.3-0.8); MONOCYTES % (AUTO) 10.5 % (0.0-13.0); NEUTROPHILS # (AUTO) 4.8 x10^3/uL (2.2-4.8); NEUTROPHILS % (AUTO) 73.2 % (42.0-75.0); PLATELET COUNT 156 X10^3/uL (150.0-450.0); RED BLOOD COUNT 2.96 X10^6/uL (4.7-6.0); RED CELL DISTRIBUTION WIDTH 16.1 % (11.6-16.5); WHITE BLOOD COUNT 6.6 X10^3/uL (3.6-10.0)
[2018-09-13 06:21] LABS: ALBUMIN 2.4 g/dL (3.4-5.0); CALCIUM 8.8 mg/dL (8.5-10.1); COR CA(FOR HYPOALB) 10.1 mg/dL (8.5-10.1); CREATININE 2.27 mg/dL (0.70-1.30); TOTAL PROTEIN 5.9 g/dL (6.4-8.2)
[2018-09-13] MEDS: NS 1/2 1000 ML IV 1,000 ML IV SCH ×3 (07:56→13:16)
[2018-09-13] MEDS: ROCEPHIN VIAL 1 GRAM IVP SCH (08:32)
[2018-09-13] MEDS ORDERED: NS 1/2 1000 ML IV 1,000 ML IV ONE (08:33)
[2018-09-13] MEDS: APRESOLINE TAB 25 MG PO SCH (08:35)
[2018-09-13] MEDS: PLAVIX PO SCH (08:35)
[2018-09-13] MEDS: PROCARDIA XL PO SCH ×2 (08:36→08:37)
[2018-09-13] MEDS: ULTRAM PO SCH ×2 (08:36→20:35)
[2018-09-13] MEDS: PROSCAR PO SCH (08:37)
[2018-09-13] MEDS: ALDACTONE TAB 25 MG PO SCH (08:37)
[2018-09-13] MEDS: COREG TAB 12.5 MG PO SCH ×2 (08:37→20:35)
[2018-09-13] MEDS: LOVENOX INJ 30 MG SYR SC SCH (08:37)
[2018-09-13] MEDS: ROBITUSSIN DM PO SCH ×4 (08:37→20:34)
[2018-09-13] MEDS: VIBRAMYCIN 100 MG in NS 100 ML IV + SPIKE MINIBAG* 100 ML IV SCH ×2 (08:40→20:36)
[2018-09-13] MEDS: PULMICORT NEB TX 0.5 MG NEB SCH ×2 (09:06→20:26)
[2018-09-13] MEDS: CATAPRES-TTS-2 TD SCH (12:35)
--- NOTE | 2018-09-13 16:48 | RAD ---
STUDY: CHEST, ONE VIEW History: Shortness of breath. Comparison: September 11, 2018. Findings: The trachea is midline. The heart is enlarged. Median sternotomy wires are again noted. There is atelectasis or infiltrate in the left lower lobe projecting laterally from the left hilum. There is no significant effusion or pneumothorax. There is decreased conspicuity of diffuse airspace and interstitial opacities in both lungs. IMPRESSION: 1. Atelectasis or airspace opacity in the left lung, projecting laterally from the left hilum. 2. Continued decreased conspicuity of bilateral airspace and interstitial infiltrates. 3. Cardiomegaly. Reported By:
--- NOTE | 2018-09-13 17:22 | CT ---
HISTORY: Shortness of breath and lymphedema. Study: CT chest without contrast Comparison: Chest x-ray dated same day. Technique: Multiple axial images of the chest were obtained from the thoracic inlet to the upper abdomen without the administration of IV contrast. MIP images were obtained. Dose reduction techniques including Automated Exposure Control (AEC) and adjustment of mA and kV were utilized. Study limited secondary to lack of IV contrast. Findings: The mediastinum does not demonstrate significant pathological lymphadenopathy. There is no paracardial effusion observed. The thoracic aorta is normal in its contour without evidence for aneurysmal dilatation. Cardiomegaly. Moderate to severe coronary artery and thoracic aortic calcifications. Postsurgical changes status post CABG. Mild biapical scarring. Small bilateral pleural effusions with associated compressive atelectasis versus infiltrate. Small amount of fluid is seen within the right major fissure. Seven and 5 mm right middle lobe pulmonary nodules (series 4, image 41). No other obvious pulmonary nodules, mass, or pneumothorax. 7.4 cm right superior renal pole simple appearing cyst. Moderate hiatal hernia. Remaining upper abdominal structures are unremarkable. Degenerative changes of the spine. No aggressive osseous lesions. 4.4 x 3.8 x 10.7 cm lipoma within the right teres minor muscle. IMPRESSION: 1. Constellation of findings likely representing pulmonary edema secondary to congestive heart failure. Underlying infiltrate not entirely excluded. 2. Multiple pulmonary nodules, the largest measuring 7 mm in greatest dimension. Recommend follow-up CT the chest in 6 months to document stability/resolution. 3. 10.7 cm lipoma within the right teres minor muscle. Reported By:
--- NOTE | 2018-09-13 17:29 | CT ---
HISTORY: Right knee pain and swelling. Study: CT right knee without contrast Comparison: None. Technique: Multiple axial images of the right knee without administration of IV contrast. Sagittal and coronal reformats were performed and reviewed. Dose reduction techniques including Automated Exposure Control (AEC) and adjustment of mA and kV were utilized. 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 Large knee effusion. There is a large [place] cyst. Vascular calcifications are seen. No acute fracture dislocation. Remaining soft tissues are unremarkable. IMPRESSION: 1. No acute fracture dislocation. 2. Other chronic findings as above. Reported By:
[2018-09-13] MEDS: ZANTAC PO SCH (20:34)
[2018-09-13] MEDS: RESTORIL CAP 15 MG PO PRN (20:35)
[2018-09-13] MEDS: LIPITOR TAB 40 MG PO SCH (20:35)
--- NOTE | 2018-09-13 20:49 | PCM.PROG ---
Progress Note - Progress Note for Day of Date of Exam: 09/12/18 - Subjective Subjective: 83 BM PATIENT OF WHO WAS AN ER ADMISSION WITH AMS FROM HYPOGLYCEMIA AND HYPERTENSIVE URGENCY. PT HAS CXR WITH POSSIBLE ASPIRATION PNEUMONIA. PT CURRENTLY ON IV ATBX WITH GENTLE IV HYDRATION. BLOOD CULTURES PENDING. ON EXAMINATION, HE IS NOTED WITH RHONCHI THROUGHOUT, DIMINISHED. HIS VITALS THIS MORNING ARE 98.2-77-21-100%-179/80. LABS WERE OBTAINED. ABNORMAL LAB VALUES INCLUDE THE FOLLOWING: RBC 3.10, HGB 8.9, HCT 27.5, BUN 24, CREATININE 2.11, GLUCOSE 137, TOTAL PROTEIN 6.0, ALBUMIN 2.5. HE IS CURRENTLY RECEIVING DOXYCYCLINE AND ROCEPHIN IV WELL RESPIRATORY TREATMENTS, SUPPLEMENTAL OXYGEN, AND HIS HOME MEDICATIONS. WE WILL CONTINUE WITH CURRENT PLAN OF CARE TODAY. OTHERWISE, WE WILL FOLLOW UP WITH AM LABS AND CONTINUE TO MONITOR. - Past Medical Family Social History Past Med/Fam/Surg Hx: No changes since H&P Allergies: Allergies ketorolac [From Toradol] Allergy (Verified 09/06/18 16:24) lisinopril Allergy (Verified 09/06/18 16:24) - Review of Systems ROS: No change since H&P - Vital Signs and I&O's Vital Signs: Temperature 99.5 F Pulse Rate [Apical] 83 Pulse Rate [Left Radial] 68 Pulse Rate 80 Respiratory Rate 22 Blood Pressure [Right Arm] 192/70 Blood Pressure [Left Arm] 233/102 Blood Pressure 179/71 O2 Sat by Pulse Oximetry 98 Intake and Output: Intake & Output 09/11/18 09/12/18 09/13/18 09/14/18 11:59 11:59 11:59 11:59 Intake Total 2810 / 2810 2896 / 2896 3048 / 3048 1612 / 1612 Output Total 4550 / 4550 1730 / 1730 1600 / 1600 800 / 800 Balance -1740 / -1740 1166 / 1166 1448 / 1448 812 / 812 - Physical Exam Oriented: Person Eyes: Normal Ear: Normal Nose: Normal Throat: Dry Respiratory: Diminished Cardiovascular: Normal, Murmur : Normal Auscultation: Bowel Sounds: Normal Palpation: Normal Tenderness: Suprapubic, Mild Skin: Decreased Turgur Musculoskeletal: Right, Left, Knee, Back:Lumbar, Instability, Crepitance Mood Description: Calm Speech Pattern: Clear, Appropriate - Laboratory and Diagnostics Result Diagrams: 09/13/18 05:35 09/13/18 05:35 Labs: 09/09/18 13:03 Blood Blood Culture - Preliminary 09/09/18 13:00 Blood Blood Culture - Preliminary Laboratory WBC 6.6 X10^3/uL (3.6-10.0) 09/13/18 05:35 RBC 2.96 X10^6/uL (4.7-6.0) L 09/13/18 05:35 Hgb 8.7 g/dL (13.5-18.0) L 09/13/18 05:35 Hct 26.1 % (42.0-54.0) L 09/13/18 05:35 MCV 88.1 fL (80.0-100.0) 09/13/18 05:35 MCH 29.2 pg (27.0-34.0) 09/13/18 05:35 MCHC 33.2 g/dL (33.0-35.0) 09/13/18 05:35 RDW 16.1 % (11.6-16.5) 09/13/18 05:35 Plt Count 156 X10^3/uL (150.0-450.0) 09/13/18 05:35 MPV 8.9 fL (7.4-11.0) 09/13/18 05:35 Neut % (Auto) 73.2 % (42.0-75.0) 09/13/18 05:35 Lymph % (Auto) 12.4 % (21.0-51.0) L 09/13/18 05:35 [place] % (Auto) 10.5 % (0.0-13.0) 09/13/18 05:35 Eos % (Auto) 3.5 % (0.9-2.9) H 09/13/18 05:35 Baso % (Auto) 0.4 % (0.2-1.0) 09/13/18 05:35 Neut # (Auto) 4.8 x10^3/uL (2.2-4.8) 09/13/18 05:35 Lymph # (Auto) 0.8 X10^3/uL (1.3-2.9) L 09/13/18 05:35 [place] # (Auto) 0.7 x10^3/uL (0.3-0.8) 09/13/18 05:35 Eos # (Auto) 0.2 x10^3/uL (0.0-0.2) 09/13/18 05:35 Baso # (Auto) 0.0 X10^3/uL (0.0-0.1) 09/13/18 05:35 Absolute Nucleated RBC 0.1 /100WBC 09/13/18 05:35 Sample Site Right brachial 09/09/18 11:10 ABG pH 7.410 (7.35-7.45) 09/09/18 11:10 ABG pCO2 45.0 mmHg (35.0-45.0) 09/09/18 11:10 ABG pO2 50.0 mmHg (80.0-100.0) L 09/09/18 11:10 ABG HCO3 28.5 mmol/L (22-26) H 09/09/18 11:10 ABG O2 Saturation 85.0 % (90-100) L 09/09/18 11:10 ABG Base Excess 3.3 mmol/L (-2.0-2.0) H 09/09/18 11:10 Mitch Test Na 09/09/18 11:10 A-a Gradient 43.0 mmHg 09/09/18 11:10 FiO2 21.0 09/09/18 11:10 Blood Gas Comments Maria Antonia well aw 09/09/18 11:10 Sodium 141 mmol/L (136-145) 09/13/18 05:35 Corrected Sodium 142 mmol/L (136-145) 09/13/18 05:35 Potassium 3.6 mmol/L (3.5-5.1) 09/13/18 05:35 Chloride 106 mmol/L (98-107) 09/13/18 05:35 Carbon Dioxide 27.0 mmol/L (21-32) 09/13/18 05:35 BUN 26 mg/dL (7-18) H 09/13/18 05:35 Creatinine 2.27 mg/dL (0.70-1.30) H 09/13/18 05:35 Est GFR (MDRD) Af Amer 36 (>60) L 09/13/18 05:35 Est GFR (MDRD) Non-Af 29 (>60) L 09/13/18 05:35 Glucose 144 mg/dL (65-99) H 09/13/18 05:35 POC Glucose (mg/dL) 175 mg/dL (65-99) H 09/13/18 20:33 Hemoglobin A1c 5.9 % 09/09/18 11:24 Calcium 8.8 mg/dL (8.5-10.1) 09/13/18 05:35 Corrected Calcium 10.1 mg/dL (8.5-10.1) 09/13/18 05:35 Magnesium 1.8 mg/dL (1.7-2.9) 09/10/18 05:37 Total Bilirubin 0.20 mg/dL (0.2-1.0) 09/13/18 05:35 AST 16 Units/L (15-37) 09/13/18 05:35 ALT 21 Units/L (12-78) 09/13/18 05:35 Alkaline Phosphatase 48 Units/L (46-116) 09/13/18 05:35 Total Protein 5.9 g/dL (6.4-8.2) L 09/13/18 05:35 Albumin 2.4 g/dL (3.4-5.0) L 09/13/18 05:35 Globulin 3.5 g/dL (2.5-4.5) 09/13/18 05:35 Albumin/Globulin Ratio 0.7 Ratio (1.1-2.1) L 09/13/18 05:35 Specimen Type Catherized urine 09/10/18 10:28 Urine Color Yellow (YELLOW) 09/10/18 10:28 Urine Appearance Clear (CLEAR) 09/10/18 10:28 Urine pH 5.0 (5.0 - 8.0) 09/10/18 10:28 Ur Specific [place] 1.015 (1.000-1.030) 09/10/18 10:28 Urine Protein 4+ (NEGATIVE) 09/10/18 10:28 Urine Glucose (UA) 1+ (NEGATIVE) 09/10/18 10:28 Urine Ketones Negative (NEGATIVE) 09/10/18 10:28 Urine Occult Blood 1+ (NEGATIVE) 09/10/18 10:28 Urine Nitrite Negative (NEGATIVE) 09/10/18 10:28 Urine Bilirubin Negative (NEGATIVE) 09/10/18 10:28 Urine Urobilinogen Normal (NORMAL) 09/10/18 10:28 Ur Leukocyte Esterase Negative (NEGATIVE) 09/10/18 10:28 Urine RBC 3-5 /HPF (NONE SEEN) 09/10/18 10:28 Urine WBC 0-2 /HPF (NONE SEEN) 09/10/18 10:28 Ur Squamous Epith Cells Rare /HPF (NEGATIVE) 09/10/18 10:28 Amorphous Sediment 2+ /HPF (NEGATIVE) 09/10/18 10:28 Urine Bacteria Trace /HPF (NEGATIVE) 09/10/18 10:28 Urine Mucus Few /HPF (NEGATIVE) 09/10/18 10:28 Ur Culture Indicated? No/not indicated 09/10/18 10:28
--- NOTE | 2018-09-13 20:53 | PCM.PROG ---
Progress Note - Progress Note for Day of Date of Exam: 09/13/18 - Subjective Subjective: 83 BM PATIENT OF WHO WAS AN ER ADMISSION WITH AMS FROM HYPOGLYCEMIA AND HYPERTENSIVE URGENCY. PT HAS CXR WITH POSSIBLE ASPIRATION PNEUMONIA. PT CURRENTLY ON IV ATBX WITH GENTLE IV HYDRATION. BLOOD CULTURES PENDING. ON EXAMINATION, HE IS NOTED WITH RHONCHI THROUGHOUT, DIMINISHED. THERE IS SWELLING NOTED TO THE RIGHT ARM AND RIGHT KNEE. HIS VITALS THIS MORNING ARE 99.3-83-21-100%-178/81. LABS WERE OBTAINED. ABNORMAL LAB VALUES INCLUDE THE FOLLOWING: RBC 2.96, HGB 8.7, HCT 26.1, BUN 26, CREATININE 2.27, GLUCOSE 144, TOTAL PROTEIN 5.9, ALBUMIN 2.4. HE HAS REMAINED HYPERTENSIVE THROUGHOUT THE NIGHT. TODAY, WE WILL ADD A CATAPRES 0.2MG TD PATCH AND DISCONTINUE THE PRN TABLETS. WE WILL OBTAIN A CHEST CT WITHOUT CONTRAST AND A CT OF THE RIGHT KNEE. OTHERWISE, WE WILL FOLLOW UP WITH AM LABS AND CONTINUE TO MONITOR. - Past Medical Family Social History Past Med/Fam/Surg Hx: No changes since H&P Allergies: Allergies ketorolac [From Toradol] Allergy (Verified 09/06/18 16:24) lisinopril Allergy (Verified 09/06/18 16:24) - Review of Systems ROS: No change since H&P - Vital Signs and I&O's Vital Signs: Temperature 99.5 F Pulse Rate [Apical] 83 Pulse Rate [Left Radial] 68 Pulse Rate 80 Respiratory Rate 22 Blood Pressure [Right Arm] 192/70 Blood Pressure [Left Arm] 233/102 Blood Pressure 179/71 O2 Sat by Pulse Oximetry 98 Intake and Output: Intake & Output 09/11/18 09/12/18 09/13/18 09/14/18 11:59 11:59 11:59 11:59 Intake Total 2810 / 2810 2896 / 2896 3048 / 3048 1612 / 1612 Output Total 4550 / 4550 1730 / 1730 1600 / 1600 800 / 800 Balance -1740 / -1740 1166 / 1166 1448 / 1448 812 / 812 - Physical Exam Oriented: Person Eyes: Normal Ear: Normal Nose: Normal Throat: Dry Respiratory: Diminished Cardiovascular: Normal, Murmur : Normal Auscultation: Bowel Sounds: Normal Tenderness: Suprapubic, Mild Skin: Decreased Turgur Musculoskeletal: Right, Left, Arm, Knee, Back:Lumbar, Instability, Crepitance Mood Description: Calm Speech Pattern: Clear, Appropriate - Laboratory and Diagnostics Result Diagrams: 09/13/18 05:35 09/13/18 05:35 Labs: 09/09/18 13:03 Blood Blood Culture - Preliminary 09/09/18 13:00 Blood Blood Culture - Preliminary Laboratory WBC 6.6 X10^3/uL (3.6-10.0) 09/13/18 05:35 RBC 2.96 X10^6/uL (4.7-6.0) L 09/13/18 05:35 Hgb 8.7 g/dL (13.5-18.0) L 09/13/18 05:35 Hct 26.1 % (42.0-54.0) L 09/13/18 05:35 MCV 88.1 fL (80.0-100.0) 09/13/18 05:35 MCH 29.2 pg (27.0-34.0) 09/13/18 05:35 MCHC 33.2 g/dL (33.0-35.0) 09/13/18 05:35 RDW 16.1 % (11.6-16.5) 09/13/18 05:35 Plt Count 156 X10^3/uL (150.0-450.0) 09/13/18 05:35 MPV 8.9 fL (7.4-11.0) 09/13/18 05:35 Neut % (Auto) 73.2 % (42.0-75.0) 09/13/18 05:35 Lymph % (Auto) 12.4 % (21.0-51.0) L 09/13/18 05:35 [place] % (Auto) 10.5 % (0.0-13.0) 09/13/18 05:35 Eos % (Auto) 3.5 % (0.9-2.9) H 09/13/18 05:35 Baso % (Auto) 0.4 % (0.2-1.0) 09/13/18 05:35 Neut # (Auto) 4.8 x10^3/uL (2.2-4.8) 09/13/18 05:35 Lymph # (Auto) 0.8 X10^3/uL (1.3-2.9) L 09/13/18 05:35 [place] # (Auto) 0.7 x10^3/uL (0.3-0.8) 09/13/18 05:35 Eos # (Auto) 0.2 x10^3/uL (0.0-0.2) 09/13/18 05:35 Baso # (Auto) 0.0 X10^3/uL (0.0-0.1) 09/13/18 05:35 Absolute Nucleated RBC 0.1 /100WBC 09/13/18 05:35 Sample Site Right brachial 09/09/18 11:10 ABG pH 7.410 (7.35-7.45) 09/09/18 11:10 ABG pCO2 45.0 mmHg (35.0-45.0) 09/09/18 11:10 ABG pO2 50.0 mmHg (80.0-100.0) L 09/09/18 11:10 ABG HCO3 28.5 mmol/L (22-26) H 09/09/18 11:10 ABG O2 Saturation 85.0 % (90-100) L 09/09/18 11:10 ABG Base Excess 3.3 mmol/L (-2.0-2.0) H 09/09/18 11:10 Mitch Test Na 09/09/18 11:10 A-a Gradient 43.0 mmHg 09/09/18 11:10 FiO2 21.0 09/09/18 11:10 Blood Gas Comments Maria Antonia well aw 09/09/18 11:10 Sodium 141 mmol/L (136-145) 09/13/18 05:35 Corrected Sodium 142 mmol/L (136-145) 09/13/18 05:35 Potassium 3.6 mmol/L (3.5-5.1) 09/13/18 05:35 Chloride 106 mmol/L (98-107) 09/13/18 05:35 Carbon Dioxide 27.0 mmol/L (21-32) 09/13/18 05:35 BUN 26 mg/dL (7-18) H 09/13/18 05:35 Creatinine 2.27 mg/dL (0.70-1.30) H 09/13/18 05:35 Est GFR (MDRD) Af Amer 36 (>60) L 09/13/18 05:35 Est GFR (MDRD) Non-Af 29 (>60) L 09/13/18 05:35 Glucose 144 mg/dL (65-99) H 09/13/18 05:35 POC Glucose (mg/dL) 175 mg/dL (65-99) H 09/13/18 20:33 Hemoglobin A1c 5.9 % 09/09/18 11:24 Calcium 8.8 mg/dL (8.5-10.1) 09/13/18 05:35 Corrected Calcium 10.1 mg/dL (8.5-10.1) 09/13/18 05:35 Magnesium 1.8 mg/dL (1.7-2.9) 09/10/18 05:37 Total Bilirubin 0.20 mg/dL (0.2-1.0) 09/13/18 05:35 AST 16 Units/L (15-37) 09/13/18 05:35 ALT 21 Units/L (12-78) 09/13/18 05:35 Alkaline Phosphatase 48 Units/L (46-116) 09/13/18 05:35 Total Protein 5.9 g/dL (6.4-8.2) L 09/13/18 05:35 Albumin 2.4 g/dL (3.4-5.0) L 09/13/18 05:35 Globulin 3.5 g/dL (2.5-4.5) 09/13/18 05:35 Albumin/Globulin Ratio 0.7 Ratio (1.1-2.1) L 09/13/18 05:35 Specimen Type Catherized urine 09/10/18 10:28 Urine Color Yellow (YELLOW) 09/10/18 10:28 Urine Appearance Clear (CLEAR) 09/10/18 10:28 Urine pH 5.0 (5.0 - 8.0) 09/10/18 10:28 Ur Specific [place] 1.015 (1.000-1.030) 09/10/18 10:28 Urine Protein 4+ (NEGATIVE) 09/10/18 10:28 Urine Glucose (UA) 1+ (NEGATIVE) 09/10/18 10:28 Urine Ketones Negative (NEGATIVE) 09/10/18 10:28 Urine Occult Blood 1+ (NEGATIVE) 09/10/18 10:28 Urine Nitrite Negative (NEGATIVE) 09/10/18 10:28 Urine Bilirubin Negative (NEGATIVE) 09/10/18 10:28 Urine Urobilinogen Normal (NORMAL) 09/10/18 10:28 Ur Leukocyte Esterase Negative (NEGATIVE) 09/10/18 10:28 Urine RBC 3-5 /HPF (NONE SEEN) 09/10/18 10:28 Urine WBC 0-2 /HPF (NONE SEEN) 09/10/18 10:28 Ur Squamous Epith Cells Rare /HPF (NEGATIVE) 09/10/18 10:28 Amorphous Sediment 2+ /HPF (NEGATIVE) 09/10/18 10:28 Urine Bacteria Trace /HPF (NEGATIVE) 09/10/18 10:28 Urine Mucus Few /HPF (NEGATIVE) 09/10/18 10:28 Ur Culture Indicated? No/not indicated 09/10/18 10:28
[2018-09-13] MEDS: APRESOLINE INJ 20 MG VIAL IVP PRN (22:25)
[2018-09-14] MEDS: DUONEB 0.5 MG/3 MG NEB SCH ×6 (00:27→20:04)
[2018-09-14] MEDS: APRESOLINE INJ 20 MG VIAL IVP PRN (04:50)
[2018-09-14 06:14] LABS: BASOPHILS % (AUTO) 0.5 % (0.2-1.0); EOSINOPHILS # (AUTO) 0.2 x10^3/uL (0.0-0.2); EOSINOPHILS % (AUTO) 2.7 % (0.9-2.9); HEMATOCRIT 26.1 % (42.0-54.0); HEMOGLOBIN 8.7 g/dL (13.5-18.0); LYMPHOCYTES # (AUTO) 0.8 X10^3/uL (1.3-2.9); MEAN CORPUSCULAR HEMOGLOBIN 29.3 pg (27.0-34.0); MEAN CORPUSCULAR HGB CONC 33.3 g/dL (33.0-35.0); MEAN PLATELET VOLUME 9.2 fL (7.4-11.0); MONOCYTES # (AUTO) 0.8 x10^3/uL (0.3-0.8); MONOCYTES % (AUTO) 11.8 % (0.0-13.0); NEUTROPHILS # (AUTO) 4.8 x10^3/uL (2.2-4.8); PLATELET COUNT 149 X10^3/uL (150.0-450.0); RED BLOOD COUNT 2.96 X10^6/uL (4.7-6.0); RED CELL DISTRIBUTION WIDTH 16.3 % (11.6-16.5); WHITE BLOOD COUNT 6.5 X10^3/uL (3.6-10.0)
[2018-09-14 06:24] LABS: ALBUMIN 2.3 g/dL (3.4-5.0); CALCIUM 8.9 mg/dL (8.5-10.1); CARBON DIOXIDE 26.4 mmol/L (21-32); COR CA(FOR HYPOALB) 10.3 mg/dL (8.5-10.1); CREATININE 2.16 mg/dL (0.70-1.30); TOTAL PROTEIN 5.7 g/dL (6.4-8.2)
--- NOTE | 2018-09-14 08:08 | RAD ---
HISTORY: Shortness of breath Study: Chest AP portable Comparison: 09/14/2018 Findings: The patient is status post median sternotomy. The heart is enlarged. No definite congestive heart failure is identified on today's examination. The lungs are hyperinflated. Minimal interstitial lung changes are present. There is some subsegmental atelectasis in the left mid lung. IMPRESSION: Continued cardiomegaly but without congestive heart failure on today's examination Minimal interstitial lung change Reported By:
[2018-09-14] MEDS: NS 1/2 1000 ML IV 1,000 ML IV SCH ×3 (08:32→15:02)
[2018-09-14] MEDS: PLAVIX PO SCH (08:33)
[2018-09-14] MEDS: LOVENOX INJ 30 MG SYR SC SCH (08:33)
[2018-09-14] MEDS: ROBITUSSIN DM PO SCH ×4 (08:33→20:49)
[2018-09-14] MEDS: ROCEPHIN VIAL 1 GRAM IVP SCH (08:33)
[2018-09-14] MEDS: APRESOLINE TAB 25 MG PO SCH (08:34)
[2018-09-14] MEDS: ALDACTONE TAB 25 MG PO SCH (08:34)
[2018-09-14] MEDS: PROSCAR PO SCH (08:34)
[2018-09-14] MEDS: COREG TAB 12.5 MG PO SCH ×2 (08:34→20:51)
[2018-09-14] MEDS: ULTRAM PO SCH ×2 (08:34→20:50)
[2018-09-14] MEDS: PROCARDIA XL PO SCH ×2 (08:34)
[2018-09-14] MEDS: CHECK PATCH XX SCH ×2 (08:38→21:00)
[2018-09-14] MEDS: VIBRAMYCIN 100 MG in NS 100 ML IV + SPIKE MINIBAG* 100 ML IV SCH ×2 (08:40→20:51)
[2018-09-14] MEDS ORDERED: NS 1/2 1000 ML IV 1,000 ML IV ONE (08:47)
[2018-09-14] MEDS: PULMICORT NEB TX 0.5 MG NEB SCH ×2 (10:21→20:04)
[2018-09-14] MEDS ORDERED: NORCO 5/325 MG TAB ONE (13:55)
[2018-09-14] MEDS: NORCO 5/325 MG TAB PO PRN (13:56)
[2018-09-14] MEDS ORDERED: PROCARDIA XL PO ONE (17:00)
[2018-09-14] MEDS: ZANTAC PO SCH (20:49)
[2018-09-14] MEDS: COLACE CAP 100 MG PO SCH (20:49)
[2018-09-14] MEDS: MILK OF MAGNESIA PO PRN (20:49)
[2018-09-14] MEDS: LIPITOR TAB 40 MG PO SCH (20:50)
[2018-09-14] MEDS: RESTORIL CAP 15 MG PO PRN (20:50)
[2018-09-15] MEDS: DUONEB 0.5 MG/3 MG NEB SCH ×6 (01:08→19:59)
[2018-09-15] MEDS: APRESOLINE INJ 20 MG VIAL IVP PRN (03:42)
[2018-09-15] MEDS: NORCO 5/325 MG TAB PO PRN ×4 (04:57→20:09)
[2018-09-15 06:05] LABS: BASOPHILS % (AUTO) 0.6 % (0.2-1.0); EOSINOPHILS # (AUTO) 0.2 x10^3/uL (0.0-0.2); EOSINOPHILS % (AUTO) 3.2 % (0.9-2.9); HEMATOCRIT 24.4 % (42.0-54.0); HEMOGLOBIN 8.1 g/dL (13.5-18.0); LYMPHOCYTES # (AUTO) 0.8 X10^3/uL (1.3-2.9); LYMPHOCYTES % (AUTO) 12.4 % (21.0-51.0); MEAN CORPUSCULAR HEMOGLOBIN 29.6 pg (27.0-34.0); MEAN CORPUSCULAR HGB CONC 33.4 g/dL (33.0-35.0); MEAN CORPUSCULAR VOLUME 88.5 fL (80.0-100.0); MEAN PLATELET VOLUME 8.6 fL (7.4-11.0); MONOCYTES # (AUTO) 0.8 x10^3/uL (0.3-0.8); MONOCYTES % (AUTO) 11.6 % (0.0-13.0); NEUTROPHILS # (AUTO) 4.7 x10^3/uL (2.2-4.8); NEUTROPHILS % (AUTO) 72.2 % (42.0-75.0); PLATELET COUNT 161 X10^3/uL (150.0-450.0); RED BLOOD COUNT 2.76 X10^6/uL (4.7-6.0); RED CELL DISTRIBUTION WIDTH 16.1 % (11.6-16.5); WHITE BLOOD COUNT 6.5 X10^3/uL (3.6-10.0)
[2018-09-15 06:18] LABS: ALBUMIN 2.2 g/dL (3.4-5.0); CALCIUM 8.8 mg/dL (8.5-10.1); CARBON DIOXIDE 25.3 mmol/L (21-32); COR CA(FOR HYPOALB) 10.2 mg/dL (8.5-10.1); CREATININE 2.07 mg/dL (0.70-1.30); TOTAL PROTEIN 5.7 g/dL (6.4-8.2)
--- NOTE | 2018-09-15 06:23 | RAD ---
Chest AP portable Indication: Dyspnea and lymphedema Comparison: 09/14/2018 Findings: There is no pneumothorax or effusion. There is no consolidation. Heart size is enlarged. There is increased interstitial markings patchy right lung opacity. Impression: Cardiomegaly with increased interstitial markings and probable right effusion, worsening from the prior suggesting CHF developing. Pneumonia not excluded. Follow-up to resolution. Reported By:
[2018-09-15] MEDS: NS 1/2 1000 ML IV 1,000 ML IV SCH ×3 (07:06→17:28)
[2018-09-15] MEDS: ROCEPHIN VIAL 1 GRAM IVP SCH (08:02)
[2018-09-15] MEDS: ULTRAM PO SCH ×2 (08:03→21:00)
[2018-09-15] MEDS: ROBITUSSIN DM PO SCH ×4 (08:04→21:00)
[2018-09-15] MEDS: PROSCAR PO SCH (08:04)
[2018-09-15] MEDS: ALDACTONE TAB 25 MG PO SCH (08:05)
[2018-09-15] MEDS: PLAVIX PO SCH (08:05)
[2018-09-15] MEDS: APRESOLINE TAB 25 MG PO SCH ×2 (08:06→21:00)
[2018-09-15] MEDS: COREG TAB 12.5 MG PO SCH ×2 (08:06→21:00)
[2018-09-15] MEDS: PROCARDIA XL PO SCH (08:06)
[2018-09-15] MEDS: LOVENOX INJ 30 MG SYR SC SCH (08:07)
[2018-09-15] MEDS: CHECK PATCH XX SCH ×2 (08:08→21:00)
[2018-09-15] MEDS: MILK OF MAGNESIA PO PRN (08:08)
[2018-09-15] MEDS: VIBRAMYCIN 100 MG in NS 100 ML IV + SPIKE MINIBAG* 100 ML IV SCH ×2 (08:09→21:00)
[2018-09-15] MEDS ORDERED: NS 100 ML IV 100 ML with VENOFER 400 MG IV NR ×2 (09:00)
[2018-09-15] MEDS ORDERED: PHARMACY CONSULT - DOSE _____ XX SCH (09:00)
[2018-09-15] MEDS: PULMICORT NEB TX 0.5 MG NEB SCH ×2 (09:10→19:59)
[2018-09-15] MEDS: FLOMAX PO SCH (11:29)
[2018-09-15] MEDS ORDERED: NS 1/2 1000 ML IV 1,000 ML IV ONE (12:04)
--- NOTE | 2018-09-15 13:39 | PCM.PROG ---
Progress Note - Progress Note for Day of Date of Exam: 09/15/18 - Subjective Subjective: 83 BM PATIENT OF WHO WAS AN ER ADMISSION WITH AMS FROM HYPOGLYCEMIA AND HYPERTENSIVE URGENCY. PT HAS CXR WITH POSSIBLE ASPIRATION PNEUMONIA. PT CURRENTLY ON IV ATBX WITH GENTLE IV HYDRATION. BLOOD CULTURES PENDING. ON EXAMINATION, HE IS NOTED WITH RHONCHI THROUGHOUT, DIMINISHED. THERE IS SWELLING NOTED TO THE RIGHT ARM AND RIGHT KNEE. PT STARTED ON PO NORCO WITH CONTROLLED PAIN AND CONTINUED ELEVATED BLOOD PRESSURE. PT DENIES CP OR SOB. PLAN TO INCREASE HYDRALAZINE BID. STRICT I&OS - Past Medical Family Social History Past Med/Fam/Surg Hx: No changes since H&P Allergies: Allergies ketorolac [From Toradol] Allergy (Verified 09/06/18 16:24) lisinopril Allergy (Verified 09/06/18 16:24) - Review of Systems ROS: No change since H&P - Vital Signs and I&O's Vital Signs: Temperature 99.1 F Pulse Rate [Apical] 80 Pulse Rate [Left Radial] 68 Pulse Rate 73 Respiratory Rate 18 Blood Pressure [Right Arm] 156/73 Blood Pressure [Left Arm] 233/102 Blood Pressure 170/80 O2 Sat by Pulse Oximetry 93 Intake and Output: Intake & Output 09/13/18 09/14/18 09/15/18 09/16/18 11:59 11:59 11:59 11:59 Intake Total 3048 / 3048 2665 / 2665 3678 / 3678 852 / 852 Output Total 1600 / 1600 2300 / 2300 1775 / 1775 675 / 675 Balance 1448 / 1448 365 / 365 1903 / 1903 177 / 177 - Physical Exam Oriented: Person Eyes: Normal Ear: Normal Nose: Normal Throat: Dry Respiratory: Diminished Cardiovascular: Normal, Murmur : Normal Auscultation: Bowel Sounds: Normal Tenderness: Suprapubic, Mild Skin: Decreased Turgur Musculoskeletal: Right, Left, Arm, Knee, Back:Lumbar, Instability, Crepitance Mood Description: Calm Speech Pattern: Clear, Appropriate - Laboratory and Diagnostics Result Diagrams: 09/15/18 05:41 09/15/18 05:41 Labs: 09/09/18 13:03 Blood Blood Culture - Final 09/09/18 13:00 Blood Blood Culture - Final Laboratory WBC 6.5 X10^3/uL (3.6-10.0) 09/15/18 05:41 RBC 2.76 X10^6/uL (4.7-6.0) L 09/15/18 05:41 Hgb 8.1 g/dL (13.5-18.0) L 09/15/18 05:41 Hct 24.4 % (42.0-54.0) L 09/15/18 05:41 MCV 88.5 fL (80.0-100.0) 09/15/18 05:41 MCH 29.6 pg (27.0-34.0) 09/15/18 05:41 MCHC 33.4 g/dL (33.0-35.0) 09/15/18 05:41 RDW 16.1 % (11.6-16.5) 09/15/18 05:41 Plt Count 161 X10^3/uL (150.0-450.0) 09/15/18 05:41 MPV 8.6 fL (7.4-11.0) 09/15/18 05:41 Neut % (Auto) 72.2 % (42.0-75.0) 09/15/18 05:41 Lymph % (Auto) 12.4 % (21.0-51.0) L 09/15/18 05:41 [place] % (Auto) 11.6 % (0.0-13.0) 09/15/18 05:41 Eos % (Auto) 3.2 % (0.9-2.9) H 09/15/18 05:41 Baso % (Auto) 0.6 % (0.2-1.0) 09/15/18 05:41 Neut # (Auto) 4.7 x10^3/uL (2.2-4.8) 09/15/18 05:41 Lymph # (Auto) 0.8 X10^3/uL (1.3-2.9) L 09/15/18 05:41 [place] # (Auto) 0.8 x10^3/uL (0.3-0.8) 09/15/18 05:41 Eos # (Auto) 0.2 x10^3/uL (0.0-0.2) 09/15/18 05:41 Baso # (Auto) 0.0 X10^3/uL (0.0-0.1) 09/15/18 05:41 Absolute Nucleated RBC 0.1 /100WBC 09/15/18 05:41 Sample Site Right brachial 09/09/18 11:10 ABG pH 7.410 (7.35-7.45) 09/09/18 11:10 ABG pCO2 45.0 mmHg (35.0-45.0) 09/09/18 11:10 ABG pO2 50.0 mmHg (80.0-100.0) L 09/09/18 11:10 ABG HCO3 28.5 mmol/L (22-26) H 09/09/18 11:10 ABG O2 Saturation 85.0 % (90-100) L 09/09/18 11:10 ABG Base Excess 3.3 mmol/L (-2.0-2.0) H 09/09/18 11:10 Mitch Test Na 09/09/18 11:10 A-a Gradient 43.0 mmHg 09/09/18 11:10 FiO2 21.0 09/09/18 11:10 Blood Gas Comments Maria Antonia well aw 09/09/18 11:10 Sodium 140 mmol/L (136-145) 09/15/18 05:41 Corrected Sodium 141 mmol/L (136-145) 09/15/18 05:41 Potassium 3.8 mmol/L (3.5-5.1) 09/15/18 05:41 Chloride 106 mmol/L (98-107) 09/15/18 05:41 Carbon Dioxide 25.3 mmol/L (21-32) 09/15/18 05:41 BUN 32 mg/dL (7-18) H 09/15/18 05:41 Creatinine 2.07 mg/dL (0.70-1.30) H 09/15/18 05:41 Est GFR (MDRD) Af Amer 40 (>60) L 09/15/18 05:41 Est GFR (MDRD) Non-Af 33 (>60) L 09/15/18 05:41 Glucose 131 mg/dL (65-99) H 09/15/18 05:41 POC Glucose (mg/dL) 131 mg/dL (65-99) H 09/15/18 06:15 Hemoglobin A1c 5.9 % 09/09/18 11:24 Calcium 8.8 mg/dL (8.5-10.1) 09/15/18 05:41 Corrected Calcium 10.2 mg/dL (8.5-10.1) H 09/15/18 05:41 Magnesium 1.8 mg/dL (1.7-2.9) 09/10/18 05:37 Iron 9 ug/dL (50-175) L 09/14/18 05:20 Transferrin 133 mg/dL (202-364) L 09/14/18 05:20 Ferritin 45 ng/mL (26-388) 09/14/18 05:20 Total Bilirubin 0.30 mg/dL (0.2-1.0) 09/15/18 05:41 AST 16 Units/L (15-37) 09/15/18 05:41 ALT 24 Units/L (12-78) 09/15/18 05:41 Alkaline Phosphatase 46 Units/L (46-116) 09/15/18 05:41 Total Protein 5.7 g/dL (6.4-8.2) L 09/15/18 05:41 Albumin 2.2 g/dL (3.4-5.0) L 09/15/18 05:41 Globulin 3.5 g/dL (2.5-4.5) 09/15/18 05:41 Albumin/Globulin Ratio 0.6 Ratio (1.1-2.1) L 09/15/18 05:41 Total PSA 9.14 ng/mL (0.13-4.0) H 09/14/18 05:20 Vitamin B12 901 pg/mL (193-986) 09/14/18 05:20 Folate 7.8 ng/mL (>8.6) L 09/14/18 05:20 Specimen Type Catherized urine 09/10/18 10:28 Urine Color Yellow (YELLOW) 09/10/18 10:28 Urine Appearance Clear (CLEAR) 09/10/18 10:28 Urine pH 5.0 (5.0 - 8.0) 09/10/18 10:28 Ur Specific [place] 1.015 (1.000-1.030) 09/10/18 10:28 Urine Protein 4+ (NEGATIVE) 09/10/18 10:28 Urine Glucose (UA) 1+ (NEGATIVE) 09/10/18 10:28 Urine Ketones Negative (NEGATIVE) 09/10/18 10:28 Urine Occult Blood 1+ (NEGATIVE) 09/10/18 10:28 Urine Nitrite Negative (NEGATIVE) 09/10/18 10:28 Urine Bilirubin Negative (NEGATIVE) 09/10/18 10:28 Urine Urobilinogen Normal (NORMAL) 09/10/18 10:28 Ur Leukocyte Esterase Negative (NEGATIVE) 09/10/18 10:28 Urine RBC 3-5 /HPF (NONE SEEN) 09/10/18 10:28 Urine WBC 0-2 /HPF (NONE SEEN) 09/10/18 10:28 Ur Squamous Epith Cells Rare /HPF (NEGATIVE) 09/10/18 10:28 Amorphous Sediment 2+ /HPF (NEGATIVE) 09/10/18 10:28 Urine Bacteria Trace /HPF (NEGATIVE) 09/10/18 10:28 Urine Mucus Few /HPF (NEGATIVE) 09/10/18 10:28 Ur Culture Indicated? No/not indicated 09/10/18 10:28 - Plan (1) Hypertensive urgency Status: Acute Plan: CONTINUOUS CARDIAC MONITORING ADN BLOOD SUGAR CONTROL,. AM LABS AND CXR. BP CONTROL, SUPPLEMENTAL O2. STRICT I & OS (2) Pneumonia Status: Acute Qualifiers: Pneumonia type: due to unspecified organism Laterality: right Lung location: lower lobe of lung Qualified Code(s): J18.1 - Lobar pneumonia, unspecified organism Plan: BLOOD AND SPUTUM CULTURES IV ATBX, RESP THERAPY. SUPPLEMENTAL O2 (3) Hypoglycemia Status: Acute (4) Chronic kidney disease (CKD) Status: Acute (5) CHF (congestive heart failure) Status: Acute Qualifiers: Qualified Code(s): I50.23 - Acute on chronic systolic (congestive) heart failure (6) Hypertension Status: Chronic Qualifiers: Hypertension type: unspecified Qualified Code(s): I10 - Essential (primary) hypertension (7) Diabetes mellitus Status: Chronic Qualifiers: Diabetes mellitus type: type 2 Diabetes mellitus jail insulin use: with jail use Diabetes mellitus complication status: without complication Qualified Code(s): E11.9 - Type 2 diabetes mellitus without complications; Z79.4 - jail (current) use of insulin; Z79.4 - rodent exterminator (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
[2018-09-15] MEDS: ZANTAC PO SCH (21:00)
[2018-09-15] MEDS: RESTORIL CAP 15 MG PO PRN (21:00)
[2018-09-15] MEDS: LIPITOR TAB 40 MG PO SCH (21:00)
[2018-09-15] MEDS: COLACE CAP 100 MG PO SCH (21:00)
[2018-09-16] MEDS: NORCO 5/325 MG TAB PO PRN ×3 (00:37→20:59)
[2018-09-16] MEDS: DUONEB 0.5 MG/3 MG NEB SCH ×6 (01:12→20:03)
[2018-09-16] MEDS: APRESOLINE TAB 25 MG PO SCH ×3 (05:45→22:00)
--- NOTE | 2018-09-16 05:59 | RAD ---
Chest AP portable Indication: Dyspnea. Lymphedema. Comparison: 09/15/2018 Findings: There is no pneumothorax. There is cardiomegaly with right effusion. Left lung is relatively clear Impression: Cardiomegaly with right effusion and borderline edema suggesting mild CHF. Follow-up to exclude underlying lesion. Reported By:
[2018-09-16] MEDS ORDERED: DULCOLAX SUPPOSITORY 10 MG RECTAL ONE (06:20)
[2018-09-16] MEDS ORDERED: DULCOLAX SUPPOSITORY 10 MG ONE (06:24)
[2018-09-16 06:25] LABS: BASOPHILS % (AUTO) 0.5 % (0.2-1.0); EOSINOPHILS # (AUTO) 0.1 x10^3/uL (0.0-0.2); EOSINOPHILS % (AUTO) 2.1 % (0.9-2.9); HEMATOCRIT 23.3 % (42.0-54.0); HEMOGLOBIN 7.7 g/dL (13.5-18.0); LYMPHOCYTES # (AUTO) 0.8 X10^3/uL (1.3-2.9); LYMPHOCYTES % (AUTO) 11.9 % (21.0-51.0); MEAN CORPUSCULAR HEMOGLOBIN 29.1 pg (27.0-34.0); MEAN CORPUSCULAR HGB CONC 32.9 g/dL (33.0-35.0); MEAN CORPUSCULAR VOLUME 88.4 fL (80.0-100.0); MEAN PLATELET VOLUME 9.1 fL (7.4-11.0); MONOCYTES # (AUTO) 0.9 x10^3/uL (0.3-0.8); MONOCYTES % (AUTO) 14.3 % (0.0-13.0); NEUTROPHILS # (AUTO) 4.7 x10^3/uL (2.2-4.8); NEUTROPHILS % (AUTO) 71.2 % (42.0-75.0); PLATELET COUNT 147 X10^3/uL (150.0-450.0); RED BLOOD COUNT 2.63 X10^6/uL (4.7-6.0); WHITE BLOOD COUNT 6.5 X10^3/uL (3.6-10.0)
[2018-09-16 06:32] LABS: CALCIUM 8.8 mg/dL (8.5-10.1); CARBON DIOXIDE 25.1 mmol/L (21-32); COR CA(FOR HYPOALB) 10.4 mg/dL (8.5-10.1); CREATININE 2.14 mg/dL (0.70-1.30); TOTAL PROTEIN 5.6 g/dL (6.4-8.2)
[2018-09-16] MEDS: NS 1/2 1000 ML IV 1,000 ML IV SCH ×3 (07:14→20:00)
[2018-09-16 07:40] LABS: HYPOCHROMASIA SLIGHT; PLATELET MORPHOLOGY COMMENT NORMAL (NORMAL)
[2018-09-16] MEDS: ROCEPHIN VIAL 1 GRAM IVP SCH (08:21)
[2018-09-16] MEDS: PROSCAR PO SCH (08:22)
[2018-09-16] MEDS: ULTRAM PO SCH ×2 (08:22→20:39)
[2018-09-16] MEDS: COREG TAB 12.5 MG PO SCH ×2 (08:22→20:41)
[2018-09-16] MEDS: PROCARDIA XL PO SCH (08:22)
[2018-09-16] MEDS: ROBITUSSIN DM PO SCH ×4 (08:22→20:41)
[2018-09-16] MEDS: ALDACTONE TAB 25 MG PO SCH (08:22)
[2018-09-16] MEDS: FLOMAX PO SCH (08:22)
[2018-09-16] MEDS: LOVENOX INJ 30 MG SYR SC SCH (08:23)
[2018-09-16] MEDS: PLAVIX PO SCH (08:23)
[2018-09-16] MEDS: CHECK PATCH XX SCH ×2 (08:23→20:42)
[2018-09-16] MEDS: VIBRAMYCIN 100 MG in NS 100 ML IV + SPIKE MINIBAG* 100 ML IV SCH ×2 (08:25→20:52)
[2018-09-16] MEDS: MILK OF MAGNESIA PO PRN (08:44)
[2018-09-16] MEDS ORDERED: XYLOCAINE 1 % (PLAIN) ONE (09:19)
[2018-09-16] MEDS: PULMICORT NEB TX 0.5 MG NEB SCH ×2 (09:50→20:03)
[2018-09-16] MEDS ORDERED: XYLOCAINE 1 % (PLAIN) IM ONE (10:00)
[2018-09-16] MEDS ORDERED: NS 1/2 1000 ML IV 1,000 ML IV ONE (13:34)
[2018-09-16] MEDS: RESTORIL CAP 15 MG PO PRN (20:38)
[2018-09-16] MEDS: COLACE CAP 100 MG PO SCH (20:39)
[2018-09-16] MEDS: LIPITOR TAB 40 MG PO SCH (20:40)
[2018-09-16] MEDS: ZANTAC PO SCH (20:41)
[2018-09-17] MEDS: DUONEB 0.5 MG/3 MG NEB SCH ×6 (00:52→21:16)
[2018-09-17] MEDS: APRESOLINE TAB 25 MG PO SCH ×3 (06:00→21:12)
[2018-09-17 06:45] LABS: BASOPHILS % (AUTO) 0.4 % (0.2-1.0); EOSINOPHILS # (AUTO) 0.1 x10^3/uL (0.0-0.2); HEMOGLOBIN 7.7 g/dL (13.5-18.0); LYMPHOCYTES # (AUTO) 0.8 X10^3/uL (1.3-2.9); LYMPHOCYTES % (AUTO) 10.9 % (21.0-51.0); MEAN CORPUSCULAR HEMOGLOBIN 29.2 pg (27.0-34.0); MEAN CORPUSCULAR HGB CONC 33.2 g/dL (33.0-35.0); MEAN CORPUSCULAR VOLUME 87.9 fL (80.0-100.0); MEAN PLATELET VOLUME 9.4 fL (7.4-11.0); MONOCYTES # (AUTO) 0.8 x10^3/uL (0.3-0.8); MONOCYTES % (AUTO) 10.7 % (0.0-13.0); NEUTROPHILS # (AUTO) 5.6 x10^3/uL (2.2-4.8); PLATELET COUNT 180 X10^3/uL (150.0-450.0); RED BLOOD COUNT 2.62 X10^6/uL (4.7-6.0); RED CELL DISTRIBUTION WIDTH 15.6 % (11.6-16.5); WHITE BLOOD COUNT 7.4 X10^3/uL (3.6-10.0)
[2018-09-17 07:31] LABS: HYPOCHROMASIA SLIGHT; PLATELET MORPHOLOGY COMMENT NORMAL (NORMAL)
[2018-09-17 07:38] LABS: ALBUMIN 2.1 g/dL (3.4-5.0); CARBON DIOXIDE 25.5 mmol/L (21-32); COR CA(FOR HYPOALB) 10.5 mg/dL (8.5-10.1); CREATININE 2.08 mg/dL (0.70-1.30); TOTAL PROTEIN 5.7 g/dL (6.4-8.2)
[2018-09-17] MEDS: ROCEPHIN VIAL 1 GRAM IVP SCH (08:42)
[2018-09-17] MEDS: VIBRAMYCIN 100 MG in NS 100 ML IV + SPIKE MINIBAG* 100 ML IV SCH ×2 (08:42→20:45)
[2018-09-17] MEDS: PROCARDIA XL PO SCH (08:50)
[2018-09-17] MEDS: PROSCAR PO SCH (08:51)
[2018-09-17] MEDS: FLOMAX PO SCH (08:51)
[2018-09-17] MEDS: ROBITUSSIN DM PO SCH ×4 (08:51→20:44)
[2018-09-17] MEDS: COREG TAB 12.5 MG PO SCH ×2 (08:52→20:44)
[2018-09-17] MEDS: PLAVIX PO SCH (08:52)
[2018-09-17] MEDS: LOVENOX INJ 30 MG SYR SC SCH (08:52)
[2018-09-17] MEDS: ALDACTONE TAB 25 MG PO SCH (08:53)
[2018-09-17] MEDS: ULTRAM PO SCH ×2 (08:54→20:44)
[2018-09-17] MEDS: HEMOCYTE-PLUS PO SCH (08:58)
[2018-09-17] MEDS ORDERED: DEXFERRUM or INFED 25 MG in NS 100 ML IV 100 ML IV ONE (09:00)
[2018-09-17] MEDS: CHECK PATCH XX SCH ×2 (10:00→20:43)
[2018-09-17] MEDS: PULMICORT NEB TX 0.5 MG NEB SCH ×2 (12:04→21:16)
[2018-09-17] MEDS ORDERED: DEXFERRUM or INFED 975 MG in NS 500 ML IV 500 ML IV ONE (13:00)
[2018-09-17] MEDS: PROTONIX INJ 40 MG VIAL IVP SCH (14:43)
[2018-09-17] MEDS: SOLU-Medrol 40 MG VIAL IVP SCH ×2 (14:43→20:44)
--- NOTE | 2018-09-17 18:08 | PCM.PROG ---
Progress Note - Progress Note for Day of Date of Exam: 09/17/18 - Subjective Subjective: 83 BM PATIENT OF WHO WAS AN ER ADMISSION WITH AMS FROM HYPOGLYCEMIA AND HYPERTENSIVE URGENCY. PT HAS CXR WITH POSSIBLE ASPIRATION PNEUMONIA. PT CURRENTLY ON IV ATBX WITH GENTLE IV HYDRATION, BUN 38, CREAT 2.08 THIS AM. BLOOD CULTURES PENDING NEGATIVE AT THIS TIME. ON EXAMINATION, HE IS NOTED WITH DIMINISHED LUNG BASES. THERE IS SWELLING NOTED RIGHT KNEE THIS AM AFTER 30CC SYNOVIAL FLUID REMOVED YESTERDAY AM. PT STARTED ON PO NORCO WITH CONTROLLED PAIN IF TAKE EVERY 4 HRS. PLAN TO ADD LOW DOSE SOLU MEDROL. PT DENIES ANY CP OR SOB. PLAN TO REPEAT AM CXR. D/C IV ROCEPHIN, CONTINUED ON DOXYCYCLINE. PT HGB 7.7 FOLLOWING IRON VENOFER, PLAN TO REPEAT IV IRON INFED TODAY AND PO IRON REPLACEMENT THERAPY. PROTONIX 40MG IV DAILY. PT REPORT HE HAS BEEN TAKING ALEVE AT HOME, DISCUSSED POSSIBLE CAUSE OF RENAL INSUFFICENCY WITH PT. - Past Medical Family Social History Past Med/Fam/Surg Hx: No changes since H&P Allergies: Allergies ketorolac [From Toradol] Allergy (Verified 09/06/18 16:24) lisinopril Allergy (Verified 09/06/18 16:24) - Review of Systems ROS: No change since H&P - Vital Signs and I&O's Vital Signs: Temperature 99.4 F Pulse Rate [Apical] 86 Pulse Rate [Left Radial] 68 Pulse Rate 75 Respiratory Rate 18 Blood Pressure [Right Arm] 164/77 Blood Pressure [Left Arm] 233/102 Blood Pressure 150/67 O2 Sat by Pulse Oximetry 99 Intake and Output: Intake & Output 09/15/18 09/16/18 09/17/18 09/18/18 11:59 11:59 11:59 11:59 Intake Total 3678 / 3678 2760 / 2760 2547 / 2547 1728 / 1728 Output Total 1775 / 1775 1625 / 1625 1025 / 1025 400 / 400 Balance 1903 / 1903 1135 / 1135 1522 / 1522 1328 / 1328 - Physical Exam Oriented: Person Eyes: Normal Ear: Normal Nose: Normal Throat: Dry Respiratory: Diminished Cardiovascular: Normal, Murmur : Normal Auscultation: Bowel Sounds: Normal Tenderness: Suprapubic, Mild Skin: Decreased Turgur Musculoskeletal: Right, Left, Arm, Knee, Back:Lumbar, Instability, Crepitance Mood Description: Calm Speech Pattern: Clear, Appropriate - Laboratory and Diagnostics Result Diagrams: 09/17/18 07:06 09/17/18 07:06 Labs: 09/16/18 09:38 Synovial Fluid - Preliminary 09/16/18 09:38 Synovial Fluid Gram Stain - Final 09/09/18 13:03 Blood Blood Culture - Final 09/09/18 13:00 Blood Blood Culture - Final Laboratory WBC 7.4 X10^3/uL (3.6-10.0) 09/17/18 07:06 RBC 2.62 X10^6/uL (4.7-6.0) L 09/17/18 07:06 Hgb 7.7 g/dL (13.5-18.0) L 09/17/18 07:06 Hct 23.0 % (42.0-54.0) L 09/17/18 07:06 MCV 87.9 fL (80.0-100.0) 09/17/18 07:06 MCH 29.2 pg (27.0-34.0) 09/17/18 07:06 MCHC 33.2 g/dL (33.0-35.0) 09/17/18 07:06 RDW 15.6 % (11.6-16.5) 09/17/18 07:06 Plt Count 180 X10^3/uL (150.0-450.0) 09/17/18 07:06 Plt Count Comment Adequate (ADEQUATE) 09/17/18 07:06 MPV 9.4 fL (7.4-11.0) 09/17/18 07:06 Neut % (Auto) 76.0 % (42.0-75.0) H 09/17/18 07:06 Lymph % (Auto) 10.9 % (21.0-51.0) L 09/17/18 07:06 [place] % (Auto) 10.7 % (0.0-13.0) 09/17/18 07:06 Eos % (Auto) 2.0 % (0.9-2.9) 09/17/18 07:06 Baso % (Auto) 0.4 % (0.2-1.0) 09/17/18 07:06 Neut # (Auto) 5.6 x10^3/uL (2.2-4.8) H 09/17/18 07:06 Lymph # (Auto) 0.8 X10^3/uL (1.3-2.9) L 09/17/18 07:06 [place] # (Auto) 0.8 x10^3/uL (0.3-0.8) 09/17/18 07:06 Eos # (Auto) 0.1 x10^3/uL (0.0-0.2) 09/17/18 07:06 Baso # (Auto) 0.0 X10^3/uL (0.0-0.1) 09/17/18 07:06 Absolute Nucleated RBC 0.1 /100WBC 09/17/18 07:06 Plt Morphology Comment Normal (NORMAL) 09/17/18 07:06 RBC Morphology Abnormal (NORMAL) 09/17/18 07:06 Hypochromasia Slight A 09/17/18 07:06 Sample Site Right brachial 09/09/18 11:10 ABG pH 7.410 (7.35-7.45) 09/09/18 11:10 ABG pCO2 45.0 mmHg (35.0-45.0) 09/09/18 11:10 ABG pO2 50.0 mmHg (80.0-100.0) L 09/09/18 11:10 ABG HCO3 28.5 mmol/L (22-26) H 09/09/18 11:10 ABG O2 Saturation 85.0 % (90-100) L 09/09/18 11:10 ABG Base Excess 3.3 mmol/L (-2.0-2.0) H 09/09/18 11:10 Mitch Test Na 09/09/18 11:10 A-a Gradient 43.0 mmHg 09/09/18 11:10 FiO2 21.0 09/09/18 11:10 Blood Gas Comments Maria Antonia well aw 09/09/18 11:10 Sodium 137 mmol/L (136-145) 09/17/18 07:06 Corrected Sodium 138 mmol/L (136-145) 09/17/18 07:06 Potassium 4.3 mmol/L (3.5-5.1) 09/17/18 07:06 Chloride 104 mmol/L (98-107) 09/17/18 07:06 Carbon Dioxide 25.5 mmol/L (21-32) 09/17/18 07:06 BUN 38 mg/dL (7-18) H 09/17/18 07:06 Creatinine 2.08 mg/dL (0.70-1.30) H 09/17/18 07:06 Est GFR (MDRD) Af Amer 39 (>60) L 09/17/18 07:06 Est GFR (MDRD) Non-Af 33 (>60) L 09/17/18 07:06 Glucose 138 mg/dL (65-99) H 09/17/18 07:06 POC Glucose (mg/dL) 136 mg/dL (65-99) H 09/17/18 06:01 Hemoglobin A1c 5.9 % 09/09/18 11:24 Calcium 9.0 mg/dL (8.5-10.1) 09/17/18 07:06 Corrected Calcium 10.5 mg/dL (8.5-10.1) H 09/17/18 07:06 Magnesium 1.8 mg/dL (1.7-2.9) 09/10/18 05:37 Iron 9 ug/dL (50-175) L 09/14/18 05:20 Transferrin 133 mg/dL (202-364) L 09/14/18 05:20 Ferritin 45 ng/mL (26-388) 09/14/18 05:20 Total Bilirubin 0.20 mg/dL (0.2-1.0) 09/17/18 07:06 AST 24 Units/L (15-37) 09/17/18 07:06 ALT 30 Units/L (12-78) 09/17/18 07:06 Alkaline Phosphatase 61 Units/L (46-116) 09/17/18 07:06 Total Protein 5.7 g/dL (6.4-8.2) L 09/17/18 07:06 Albumin 2.1 g/dL (3.4-5.0) L 09/17/18 07:06 Globulin 3.6 g/dL (2.5-4.5) 09/17/18 07:06 Albumin/Globulin Ratio 0.6 Ratio (1.1-2.1) L 09/17/18 07:06 Total PSA 9.14 ng/mL (0.13-4.0) H 09/14/18 05:20 Vitamin B12 901 pg/mL (193-986) 09/14/18 05:20 Folate 7.8 ng/mL (>8.6) L 09/14/18 05:20 Specimen Type Catherized urine 09/10/18 10:28 Urine Color Yellow (YELLOW) 09/10/18 10:28 Urine Appearance Clear (CLEAR) 09/10/18 10:28 Urine pH 5.0 (5.0 - 8.0) 09/10/18 10:28 Ur Specific [place] 1.015 (1.000-1.030) 09/10/18 10:28 Urine Protein 4+ (NEGATIVE) 09/10/18 10:28 Urine Glucose (UA) 1+ (NEGATIVE) 09/10/18 10:28 Urine Ketones Negative (NEGATIVE) 09/10/18 10:28 Urine Occult Blood 1+ (NEGATIVE) 09/10/18 10:28 Urine Nitrite Negative (NEGATIVE) 09/10/18 10:28 Urine Bilirubin Negative (NEGATIVE) 09/10/18 10:28 Urine Urobilinogen Normal (NORMAL) 09/10/18 10:28 Ur Leukocyte Esterase Negative (NEGATIVE) 09/10/18 10:28 Urine RBC 3-5 /HPF (NONE SEEN) 09/10/18 10:28 Urine WBC 0-2 /HPF (NONE SEEN) 09/10/18 10:28 Ur Squamous Epith Cells Rare /HPF (NEGATIVE) 09/10/18 10:28 Amorphous Sediment 2+ /HPF (NEGATIVE) 09/10/18 10:28 Urine Bacteria Trace /HPF (NEGATIVE) 09/10/18 10:28 Urine Mucus Few /HPF (NEGATIVE) 09/10/18 10:28 Ur Culture Indicated? No/not indicated 09/10/18 10:28 Fluid Source Synovial 09/16/18 09:38 Fluid Crystals None seen (None Seen) 09/16/18 09:38 Synovial WBC 68420 Cubic/mm (0-150) H 09/16/18 09:38 Synovial Uric Acid Cancelled 09/16/18 09:38 Stool Description 30g firm,mucoid grn 09/16/18 09:12 Stl Occult Blood (IFOB) Positive (NEGATIVE) A 09/16/18 09:12 Cytology Specimen To follow 09/16/18 09:38 - Plan (1) Hypertensive urgency Status: Acute Plan: CONTINUOUS CARDIAC MONITORING ADN BLOOD SUGAR CONTROL,. AM LABS AND CXR. BP CONTROL, SUPPLEMENTAL O2. STRICT I & OS (2) Pneumonia Status: Acute Qualifiers: Pneumonia type: due to unspecified organism Laterality: right Lung location: lower lobe of lung Qualified Code(s): J18.1 - Lobar pneumonia, unspecified organism Plan: BLOOD AND SPUTUM CULTURES IV ATBX, RESP THERAPY. SUPPLEMENTAL O2 (3) Hypoglycemia Status: Acute (4) Chronic kidney disease (CKD) Status: Acute (5) CHF (congestive heart failure) Status: Acute Qualifiers: Qualified Code(s): I50.23 - Acute on chronic systolic (congestive) heart failure (6) Hypertension Status: Chronic Qualifiers: Hypertension type: unspecified Qualified Code(s): I10 - Essential (primary) hypertension (7) Diabetes mellitus Status: Chronic Qualifiers: Diabetes mellitus type: type 2 Diabetes mellitus manager intermediate insulin use: with manager intermediate use Diabetes mellitus complication status: without complication Qualified Code(s): E11.9 - Type 2 diabetes mellitus without complications; Z79.4 - half-way (current) use of insulin; Z79.4 - half-way (current) use of insulin; Z79.4 - half-way (current) use of insulin; Z79.4 - half-way (current) use of insulin (8) Hyperlipidemia Status: Chronic Qualifiers: Hyperlipidemia type: mixed hyperlipidemia Qualified Code(s): E78.2 - Mixed hyperlipidemia (9) Coronary artery disease Status: Chronic (10) GERD (gastroesophageal reflux disease) Status: Chronic Qualifiers: Esophagitis presence: esophagitis presence not specified Qualified Code(s): K21.9 - Gastro-esophageal reflux disease without esophagitis
[2018-09-17] MEDS: NS 1/2 1000 ML IV 1,000 ML IV SCH ×2 (20:42→22:12)
[2018-09-17] MEDS: ZANTAC PO SCH (20:43)
[2018-09-17] MEDS: LIPITOR TAB 40 MG PO SCH (20:43)
[2018-09-17] MEDS: SNACK - Diabetic Appropriate PO SCH (20:43)
[2018-09-17] MEDS: HumuLIN R SUBCUT PRN (20:46)
[2018-09-17] MEDS ORDERED: NS 1/2 1000 ML IV 1,000 ML IV ONE (22:28)
[2018-09-18] MEDS: DUONEB 0.5 MG/3 MG NEB SCH ×6 (01:25→20:14)
[2018-09-18] MEDS: APRESOLINE TAB 25 MG PO SCH ×3 (05:23→21:00)
[2018-09-18] MEDS: HumuLIN R SUBCUT PRN ×2 (05:35→11:30)
[2018-09-18 06:15] LABS: BASOPHILS % (AUTO) 0.3 % (0.2-1.0); LYMPHOCYTES # (AUTO) 0.4 X10^3/uL (1.3-2.9); MEAN CORPUSCULAR HEMOGLOBIN 29.5 pg (27.0-34.0); MEAN CORPUSCULAR HGB CONC 33.6 g/dL (33.0-35.0); MEAN CORPUSCULAR VOLUME 87.9 fL (80.0-100.0); MEAN PLATELET VOLUME 8.9 fL (7.4-11.0); MONOCYTES # (AUTO) 0.2 x10^3/uL (0.3-0.8); MONOCYTES % (AUTO) 3.2 % (0.0-13.0); NEUTROPHILS # (AUTO) 5.5 x10^3/uL (2.2-4.8); NEUTROPHILS % (AUTO) 89.5 % (42.0-75.0); PLATELET COUNT 162 X10^3/uL (150.0-450.0); RED BLOOD COUNT 2.73 X10^6/uL (4.7-6.0); RED CELL DISTRIBUTION WIDTH 15.9 % (11.6-16.5); WHITE BLOOD COUNT 6.1 X10^3/uL (3.6-10.0)
[2018-09-18 06:35] LABS: CALCIUM 9.1 mg/dL (8.5-10.1); CARBON DIOXIDE 23.5 mmol/L (21-32); COR CA(FOR HYPOALB) 10.7 mg/dL (8.5-10.1); CREATININE 2.32 mg/dL (0.70-1.30); TOTAL PROTEIN 5.9 g/dL (6.4-8.2)
--- NOTE | 2018-09-18 06:46 | RAD ---
HISTORY: Shortness of breath Study: Chest AP portable Comparison: 09/16/2018 Findings: The patient is status post median sternotomy and CABG. The heart remains enlarged. The aorta is ectatic. No congestive heart failure, acute infiltrates, or pleural effusions are identified. Bony thorax is unremarkable. IMPRESSION: Continued cardiomegaly without congestive heart failure No infiltrates Reported By:
[2018-09-18] MEDS: PROTONIX INJ 40 MG VIAL IVP SCH (08:35)
[2018-09-18] MEDS: VIBRAMYCIN 100 MG in NS 100 ML IV + SPIKE MINIBAG* 100 ML IV SCH ×2 (08:35→20:54)
[2018-09-18] MEDS: PROCARDIA XL PO SCH (08:36)
[2018-09-18] MEDS: ULTRAM PO SCH ×2 (08:36→20:58)
[2018-09-18] MEDS: FLOMAX PO SCH (08:36)
[2018-09-18] MEDS: HEMOCYTE-PLUS PO SCH (08:36)
[2018-09-18] MEDS: PLAVIX PO SCH (08:36)
[2018-09-18] MEDS: ROBITUSSIN DM PO SCH ×5 (08:36→20:58)
[2018-09-18] MEDS: ALDACTONE TAB 25 MG PO SCH (08:37)
[2018-09-18] MEDS: PROSCAR PO SCH (08:37)
[2018-09-18] MEDS: LOVENOX INJ 30 MG SYR SC SCH (08:37)
[2018-09-18] MEDS: COREG TAB 12.5 MG PO SCH ×2 (08:37→20:55)
[2018-09-18] MEDS: CHECK PATCH XX SCH ×2 (08:38→21:01)
[2018-09-18] MEDS: PULMICORT NEB TX 0.5 MG NEB SCH ×2 (09:22→20:14)
[2018-09-18] MEDS: MILK OF MAGNESIA PO PRN (09:35)
[2018-09-18] MEDS ORDERED: NS 1/2 1000 ML IV 1,000 ML IV ONE ×2 (09:44→19:39)
[2018-09-18] MEDS ORDERED: NS 1000 ML 1,000 ML IV PRN (15:00)
--- NOTE | 2018-09-18 15:45 | RAD ---
AP abdomen Indication: Abdominal pain Comparison: None Findings: There is moderate colonic stool burden, suggesting constipation. No significantly dilated small bowel loops observed. No gross free air or suspicious calcifications. Impression: No acute abdominal process. Constipation. Reported By:
[2018-09-18] MEDS: ZANTAC PO SCH (20:58)
[2018-09-18] MEDS: RESTORIL CAP 15 MG PO PRN (20:58)
[2018-09-18] MEDS: LIPITOR TAB 40 MG PO SCH (20:58)
[2018-09-18] MEDS: SNACK - Diabetic Appropriate PO SCH (20:59)
[2018-09-19] MEDS: DUONEB 0.5 MG/3 MG NEB SCH ×6 (00:10→19:59)
[2018-09-19 05:27] LABS: ALBUMIN 2.1 g/dL (3.4-5.0); CARBON DIOXIDE 24.7 mmol/L (21-32); COR CA(FOR HYPOALB) 10.5 mg/dL (8.5-10.1); CREATININE 2.09 mg/dL (0.70-1.30); TOTAL PROTEIN 5.7 g/dL (6.4-8.2)
[2018-09-19 05:28] LABS: BASOPHILS % (AUTO) 0.5 % (0.2-1.0); EOSINOPHILS # (AUTO) 0.2 x10^3/uL (0.0-0.2); EOSINOPHILS % (AUTO) 2.3 % (0.9-2.9); HEMATOCRIT 23.8 % (42.0-54.0); HEMOGLOBIN 7.9 g/dL (13.5-18.0); LYMPHOCYTES # (AUTO) 1.1 X10^3/uL (1.3-2.9); LYMPHOCYTES % (AUTO) 14.1 % (21.0-51.0); MEAN CORPUSCULAR HEMOGLOBIN 29.1 pg (27.0-34.0); MEAN CORPUSCULAR HGB CONC 33.2 g/dL (33.0-35.0); MEAN CORPUSCULAR VOLUME 87.6 fL (80.0-100.0); MEAN PLATELET VOLUME 8.9 fL (7.4-11.0); MONOCYTES # (AUTO) 0.7 x10^3/uL (0.3-0.8); MONOCYTES % (AUTO) 8.3 % (0.0-13.0); NEUTROPHILS # (AUTO) 5.9 x10^3/uL (2.2-4.8); NEUTROPHILS % (AUTO) 74.8 % (42.0-75.0); PLATELET COUNT 182 X10^3/uL (150.0-450.0); RED BLOOD COUNT 2.71 X10^6/uL (4.7-6.0); RED CELL DISTRIBUTION WIDTH 15.8 % (11.6-16.5); WHITE BLOOD COUNT 7.9 X10^3/uL (3.6-10.0)
[2018-09-19 05:50] LABS: HYPOCHROMASIA SLIGHT; PLATELET MORPHOLOGY COMMENT NORMAL (NORMAL)
[2018-09-19] MEDS: APRESOLINE TAB 25 MG PO SCH ×3 (05:59→21:24)
[2018-09-19] MEDS: PULMICORT NEB TX 0.5 MG NEB SCH ×2 (09:03→19:59)
[2018-09-19] MEDS: PROTONIX INJ 40 MG VIAL IVP SCH (09:08)
[2018-09-19] MEDS: VIBRAMYCIN 100 MG in NS 100 ML IV + SPIKE MINIBAG* 100 ML IV SCH ×2 (09:08→21:26)
[2018-09-19] MEDS: PLAVIX PO SCH (09:09)
[2018-09-19] MEDS: ROBITUSSIN DM PO SCH ×4 (09:09→21:24)
[2018-09-19] MEDS: ALDACTONE TAB 25 MG PO SCH (09:09)
[2018-09-19] MEDS: FLOMAX PO SCH (09:09)
[2018-09-19] MEDS: HEMOCYTE-PLUS PO SCH (09:09)
[2018-09-19] MEDS: COREG TAB 12.5 MG PO SCH ×2 (09:09→21:25)
[2018-09-19] MEDS: ULTRAM PO SCH ×2 (09:09→21:24)
[2018-09-19] MEDS: PROCARDIA XL PO SCH (09:09)
[2018-09-19] MEDS: PROSCAR PO SCH (09:09)
[2018-09-19] MEDS: CHECK PATCH XX SCH ×2 (09:10→21:27)
[2018-09-19] MEDS: LOVENOX INJ 30 MG SYR SC SCH (09:10)
[2018-09-19] MEDS: MILK OF MAGNESIA PO PRN (10:21)
--- NOTE | 2018-09-19 14:26 | PCM.PROG ---
Progress Note - Progress Note for Day of Date of Exam: 09/18/18 - Subjective Subjective: 83 BM PATIENT OF WHO WAS AN ER ADMISSION WITH AMS FROM HYPOGLYCEMIA AND HYPERTENSIVE URGENCY. PT HAS CXR WITH POSSIBLE ASPIRATION PNEUMONIA. PT CURRENTLY ON IV ATBX WITH GENTLE IV HYDRATION, BUN 45, CREAT 2.32 THIS AM. BLOOD CULTURES PENDING NEGATIVE AT THIS TIME. ON EXAMINATION, HE IS NOTED WITH DIMINISHED LUNG BASES. THERE IS SWELLING NOTED RIGHT KNEE THIS AM AFTER 30CC SYNOVIAL FLUID REMOVED ON FRIDAY. PT STARTED ON PO NORCO WITH CONTROLLED PAIN IF TAKE EVERY 4 HRS. S/P LOW DOSE SOLU MEDROL WITH MILD PAIN IMPROVEMENT PER PT. PT DENIES ANY CP OR SOB. PLAN TO REPEAT AM CXR. , CONTINUED ON DOXYCYCLINE. PT HGB 8.0 , ON PO IRON REPLACEMENT THERAPY. PROTONIX 40MG IV DAILY. PT REPORT HE HAS BEEN TAKING ALEVE AT HOME, DISCUSSED POSSIBLE CAUSE OF RENAL INSUFFICENCY WITH PT. PT MOVED TO FLOOR STATUS, PLAN TO ADMIT FOR SWING BED REHAB, FAMILY SEEKING PERMANENT NH PLACEMENT - Past Medical Family Social History Past Med/Fam/Surg Hx: No changes since H&P Allergies: Allergies ketorolac [From Toradol] Allergy (Verified 09/06/18 16:24) lisinopril Allergy (Verified 09/06/18 16:24) - Review of Systems ROS: No change since H&P - Vital Signs and I&O's Vital Signs: Temperature 98 F Pulse Rate [Apical] 86 Pulse Rate [Left Radial] 68 Pulse Rate 88 Respiratory Rate 20 Blood Pressure [Right Arm] 164/77 Blood Pressure [Left Arm] 233/102 Blood Pressure 176/77 O2 Sat by Pulse Oximetry 95 Intake and Output: Intake & Output 09/17/18 09/18/18 09/19/18 09/20/18 11:59 11:59 11:59 11:59 Intake Total 2547 / 2547 2723 / 2723 1979 / 1979 Output Total 1025 / 1025 1000 / 1000 2400 / 2400 Balance 1522 / 1522 1723 / 1723 -420 / -420 - Physical Exam Oriented: Person Eyes: Normal Ear: Normal Nose: Normal Throat: Dry Respiratory: Diminished Cardiovascular: Normal, Murmur : Normal Auscultation: Bowel Sounds: Normal Tenderness: Suprapubic, Mild Skin: Decreased Turgur Musculoskeletal: Right, Left, Arm, Knee, Back:Lumbar, Instability, Crepitance Mood Description: Calm Speech Pattern: Clear, Appropriate - Laboratory and Diagnostics Result Diagrams: 09/19/18 04:49 09/19/18 04:49 Labs: 09/16/18 09:38 Synovial Fluid - Final 09/16/18 09:38 Synovial Fluid Gram Stain - Final 09/09/18 13:03 Blood Blood Culture - Final 09/09/18 13:00 Blood Blood Culture - Final Laboratory WBC 7.9 X10^3/uL (3.6-10.0) 09/19/18 04:49 RBC 2.71 X10^6/uL (4.7-6.0) L 09/19/18 04:49 Hgb 7.9 g/dL (13.5-18.0) L 09/19/18 04:49 Hct 23.8 % (42.0-54.0) L 09/19/18 04:49 MCV 87.6 fL (80.0-100.0) 09/19/18 04:49 MCH 29.1 pg (27.0-34.0) 09/19/18 04:49 MCHC 33.2 g/dL (33.0-35.0) 09/19/18 04:49 RDW 15.8 % (11.6-16.5) 09/19/18 04:49 Plt Count 182 X10^3/uL (150.0-450.0) 09/19/18 04:49 Plt Count Comment Adequate (ADEQUATE) 09/19/18 04:49 MPV 8.9 fL (7.4-11.0) 09/19/18 04:49 Neut % (Auto) 74.8 % (42.0-75.0) 09/19/18 04:49 Lymph % (Auto) 14.1 % (21.0-51.0) L 09/19/18 04:49 White % (Auto) 8.3 % (0.0-13.0) 09/19/18 04:49 Eos % (Auto) 2.3 % (0.9-2.9) 09/19/18 04:49 Baso % (Auto) 0.5 % (0.2-1.0) 09/19/18 04:49 Neut # (Auto) 5.9 x10^3/uL (2.2-4.8) H 09/19/18 04:49 Lymph # (Auto) 1.1 X10^3/uL (1.3-2.9) L 09/19/18 04:49 [place] # (Auto) 0.7 x10^3/uL (0.3-0.8) 09/19/18 04:49 Eos # (Auto) 0.2 x10^3/uL (0.0-0.2) 09/19/18 04:49 Baso # (Auto) 0.0 X10^3/uL (0.0-0.1) 09/19/18 04:49 Absolute Nucleated RBC 0.0 /100WBC 09/19/18 04:49 Plt Morphology Comment Normal (NORMAL) 09/19/18 04:49 RBC Morphology Abnormal (NORMAL) 09/19/18 04:49 Hypochromasia Slight A 09/19/18 04:49 Sample Site Right brachial 09/09/18 11:10 ABG pH 7.410 (7.35-7.45) 09/09/18 11:10 ABG pCO2 45.0 mmHg (35.0-45.0) 09/09/18 11:10 ABG pO2 50.0 mmHg (80.0-100.0) L 09/09/18 11:10 ABG HCO3 28.5 mmol/L (22-26) H 09/09/18 11:10 ABG O2 Saturation 85.0 % (90-100) L 09/09/18 11:10 ABG Base Excess 3.3 mmol/L (-2.0-2.0) H 09/09/18 11:10 Mitch Test Na 09/09/18 11:10 A-a Gradient 43.0 mmHg 09/09/18 11:10 FiO2 21.0 09/09/18 11:10 Blood Gas Comments Maria Antonia well aw 09/09/18 11:10 Sodium 139 mmol/L (136-145) 09/19/18 04:49 Corrected Sodium 140 mmol/L (136-145) 09/19/18 04:49 Potassium 4.3 mmol/L (3.5-5.1) 09/19/18 04:49 Chloride 106 mmol/L (98-107) 09/19/18 04:49 Carbon Dioxide 24.7 mmol/L (21-32) 09/19/18 04:49 BUN 43 mg/dL (7-18) H 09/19/18 04:49 Creatinine 2.09 mg/dL (0.70-1.30) H 09/19/18 04:49 Est GFR (MDRD) Af Amer 39 (>60) L 09/19/18 04:49 Est GFR (MDRD) Non-Af 32 (>60) L 09/19/18 04:49 Glucose 130 mg/dL (65-99) H 09/19/18 04:49 POC Glucose (mg/dL) 136 mg/dL (65-99) H 09/17/18 06:01 Hemoglobin A1c 5.9 % 09/09/18 11:24 Calcium 9.0 mg/dL (8.5-10.1) 09/19/18 04:49 Corrected Calcium 10.5 mg/dL (8.5-10.1) H 09/19/18 04:49 Magnesium 1.8 mg/dL (1.7-2.9) 09/10/18 05:37 Iron 9 ug/dL (50-175) L 09/14/18 05:20 Transferrin 133 mg/dL (202-364) L 09/14/18 05:20 Ferritin 45 ng/mL (26-388) 09/14/18 05:20 Total Bilirubin 0.20 mg/dL (0.2-1.0) 09/19/18 04:49 AST 43 Units/L (15-37) H 09/19/18 04:49 ALT 55 Units/L (12-78) 09/19/18 04:49 Alkaline Phosphatase 60 Units/L (46-116) 09/19/18 04:49 Total Protein 5.7 g/dL (6.4-8.2) L 09/19/18 04:49 Albumin 2.1 g/dL (3.4-5.0) L 09/19/18 04:49 Globulin 3.6 g/dL (2.5-4.5) 09/19/18 04:49 Albumin/Globulin Ratio 0.6 Ratio (1.1-2.1) L 09/19/18 04:49 Total PSA 9.14 ng/mL (0.13-4.0) H 09/14/18 05:20 Vitamin B12 901 pg/mL (193-986) 09/14/18 05:20 Folate 7.8 ng/mL (>8.6) L 09/14/18 05:20 Specimen Type Catherized urine 09/10/18 10:28 Urine Color Yellow (YELLOW) 09/10/18 10:28 Urine Appearance Clear (CLEAR) 09/10/18 10:28 Urine pH 5.0 (5.0 - 8.0) 09/10/18 10:28 Ur Specific [place] 1.015 (1.000-1.030) 09/10/18 10:28 Urine Protein 4+ (NEGATIVE) 09/10/18 10:28 Urine Glucose (UA) 1+ (NEGATIVE) 09/10/18 10:28 Urine Ketones Negative (NEGATIVE) 09/10/18 10:28 Urine Occult Blood 1+ (NEGATIVE) 09/10/18 10:28 Urine Nitrite Negative (NEGATIVE) 09/10/18 10:28 Urine Bilirubin Negative (NEGATIVE) 09/10/18 10:28 Urine Urobilinogen Normal (NORMAL) 09/10/18 10:28 Ur Leukocyte Esterase Negative (NEGATIVE) 09/10/18 10:28 Urine RBC 3-5 /HPF (NONE SEEN) 09/10/18 10:28 Urine WBC 0-2 /HPF (NONE SEEN) 09/10/18 10:28 Ur Squamous Epith Cells Rare /HPF (NEGATIVE) 09/10/18 10:28 Amorphous Sediment 2+ /HPF (NEGATIVE) 09/10/18 10:28 Urine Bacteria Trace /HPF (NEGATIVE) 09/10/18 10:28 Urine Mucus Few /HPF (NEGATIVE) 09/10/18 10:28 Ur Culture Indicated? No/not indicated 09/10/18 10:28 Fluid Source Synovial 09/16/18 09:38 Fluid Crystals None seen (None Seen) 09/16/18 09:38 Synovial WBC 66742 Cubic/mm (0-150) H 09/16/18 09:38 Synovial Uric Acid Cancelled 09/16/18 09:38 Stool Description 30g firm,mucoid grn 09/16/18 09:12 Stl Occult Blood (IFOB) Positive (NEGATIVE) A 09/16/18 09:12 Cytology Specimen To follow 09/16/18 09:38 Miscellaneous Test See comment 09/16/18 09:50 - Plan (1) Hypertensive urgency Status: Acute Plan: CONTINUOUS CARDIAC MONITORING ADN BLOOD SUGAR CONTROL,. AM LABS AND CXR. BP CONTROL, SUPPLEMENTAL O2. STRICT I & OS (2) Pneumonia Status: Acute Qualifiers: Pneumonia type: due to unspecified organism Laterality: right Lung location: lower lobe of lung Qualified Code(s): J18.1 - Lobar pneumonia, unspecified organism Plan: BLOOD AND SPUTUM CULTURES IV ATBX, RESP THERAPY. 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 Diabetes mellitus complication status: without complication Qualified Code(s): E11.9 - Type 2 diabetes mellitus without complications; 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
--- NOTE | 2018-09-19 14:29 | PCM.PROG ---
Progress Note - Progress Note for Day of Date of Exam: 09/19/18 - Subjective Subjective: 83 BM PATIENT OF WHO WAS AN ER ADMISSION WITH AMS FROM HYPOGLYCEMIA AND HYPERTENSIVE URGENCY. PT HAS CXR WITH POSSIBLE ASPIRATION PNEUMONIA. PT CURRENTLY ON IV ATBX WITH GENTLE IV HYDRATION, BUN43, CREAT 2.09 THIS AM. BLOOD CULTURES PENDING NEGATIVE AT THIS TIME. ON EXAMINATION, HE IS NOTED WITH DIMINISHED LUNG BASES. THERE IS SWELLING NOTED RIGHT KNEE THIS AM AFTER 30CC SYNOVIAL FLUID REMOVED ON FRIDAY. PT STARTED ON PO NORCO WITH CONTROLLED PAIN IF TAKE EVERY 4 HRS. S/P LOW DOSE SOLU MEDROL WITH MILD PAIN IMPROVEMENT PER PT. PT DENIES ANY CP OR SOB. PLAN TO REPEAT AM CXR. , CONTINUED ON DOXYCYCLINE. PT HGB 8.0 , ON PO IRON REPLACEMENT THERAPY. PROTONIX 40MG IV DAILY. PLAN TO ADMIT FOR SWING BED REHAB, FAMILY SEEKING PERMANENT NH PLACEMENT. PT CO ABDOMINAL PAIN YESTERDAY WITH KUB REVEALING CONSTIPATION, STARTED ON MOM AND RESUMED COLACE. - Past Medical Family Social History Past Med/Fam/Surg Hx: No changes since H&P Allergies: Allergies ketorolac [From Toradol] Allergy (Verified 09/06/18 16:24) lisinopril Allergy (Verified 09/06/18 16:24) - Review of Systems ROS: No change since H&P - Vital Signs and I&O's Vital Signs: Temperature 98 F Pulse Rate [Apical] 86 Pulse Rate [Left Radial] 68 Pulse Rate 88 Respiratory Rate 20 Blood Pressure [Right Arm] 164/77 Blood Pressure [Left Arm] 233/102 Blood Pressure 176/77 O2 Sat by Pulse Oximetry 95 Intake and Output: Intake & Output 09/17/18 09/18/18 09/19/18 09/20/18 11:59 11:59 11:59 11:59 Intake Total 2547 / 2547 2723 / 2723 1979 / 1979 Output Total 1025 / 1025 1000 / 1000 2400 / 2400 Balance 1522 / 1522 1723 / 1723 -420 / -420 - Physical Exam Oriented: Person Eyes: Normal Ear: Normal Nose: Normal Throat: Dry Respiratory: Diminished Cardiovascular: Normal, Murmur : Normal Auscultation: Bowel Sounds: Normal Tenderness: Suprapubic, Mild Skin: Decreased Turgur Musculoskeletal: Right, Left, Arm, Knee, Back:Lumbar, Instability, Crepitance Mood Description: Calm Speech Pattern: Clear, Appropriate - Laboratory and Diagnostics Result Diagrams: 09/19/18 04:49 09/19/18 04:49 Labs: 09/16/18 09:38 Synovial Fluid - Final 09/16/18 09:38 Synovial Fluid Gram Stain - Final 09/09/18 13:03 Blood Blood Culture - Final 09/09/18 13:00 Blood Blood Culture - Final Laboratory WBC 7.9 X10^3/uL (3.6-10.0) 09/19/18 04:49 RBC 2.71 X10^6/uL (4.7-6.0) L 09/19/18 04:49 Hgb 7.9 g/dL (13.5-18.0) L 09/19/18 04:49 Hct 23.8 % (42.0-54.0) L 09/19/18 04:49 MCV 87.6 fL (80.0-100.0) 09/19/18 04:49 MCH 29.1 pg (27.0-34.0) 09/19/18 04:49 MCHC 33.2 g/dL (33.0-35.0) 09/19/18 04:49 RDW 15.8 % (11.6-16.5) 09/19/18 04:49 Plt Count 182 X10^3/uL (150.0-450.0) 09/19/18 04:49 Plt Count Comment Adequate (ADEQUATE) 09/19/18 04:49 MPV 8.9 fL (7.4-11.0) 09/19/18 04:49 Neut % (Auto) 74.8 % (42.0-75.0) 09/19/18 04:49 Lymph % (Auto) 14.1 % (21.0-51.0) L 09/19/18 04:49 [place] % (Auto) 8.3 % (0.0-13.0) 09/19/18 04:49 Eos % (Auto) 2.3 % (0.9-2.9) 09/19/18 04:49 Baso % (Auto) 0.5 % (0.2-1.0) 09/19/18 04:49 Neut # (Auto) 5.9 x10^3/uL (2.2-4.8) H 09/19/18 04:49 Lymph # (Auto) 1.1 X10^3/uL (1.3-2.9) L 09/19/18 04:49 [place] # (Auto) 0.7 x10^3/uL (0.3-0.8) 09/19/18 04:49 Eos # (Auto) 0.2 x10^3/uL (0.0-0.2) 09/19/18 04:49 Baso # (Auto) 0.0 X10^3/uL (0.0-0.1) 09/19/18 04:49 Absolute Nucleated RBC 0.0 /100WBC 09/19/18 04:49 Plt Morphology Comment Normal (NORMAL) 09/19/18 04:49 RBC Morphology Abnormal (NORMAL) 09/19/18 04:49 Hypochromasia Slight A 09/19/18 04:49 Sample Site Right brachial 09/09/18 11:10 ABG pH 7.410 (7.35-7.45) 09/09/18 11:10 ABG pCO2 45.0 mmHg (35.0-45.0) 09/09/18 11:10 ABG pO2 50.0 mmHg (80.0-100.0) L 09/09/18 11:10 ABG HCO3 28.5 mmol/L (22-26) H 09/09/18 11:10 ABG O2 Saturation 85.0 % (90-100) L 09/09/18 11:10 ABG Base Excess 3.3 mmol/L (-2.0-2.0) H 09/09/18 11:10 Mitch Test Na 09/09/18 11:10 A-a Gradient 43.0 mmHg 09/09/18 11:10 FiO2 21.0 09/09/18 11:10 Blood Gas Comments Maria Antonia well aw 09/09/18 11:10 Sodium 139 mmol/L (136-145) 09/19/18 04:49 Corrected Sodium 140 mmol/L (136-145) 09/19/18 04:49 Potassium 4.3 mmol/L (3.5-5.1) 09/19/18 04:49 Chloride 106 mmol/L (98-107) 09/19/18 04:49 Carbon Dioxide 24.7 mmol/L (21-32) 09/19/18 04:49 BUN 43 mg/dL (7-18) H 09/19/18 04:49 Creatinine 2.09 mg/dL (0.70-1.30) H 09/19/18 04:49 Est GFR (MDRD) Af Amer 39 (>60) L 09/19/18 04:49 Est GFR (MDRD) Non-Af 32 (>60) L 09/19/18 04:49 Glucose 130 mg/dL (65-99) H 09/19/18 04:49 POC Glucose (mg/dL) 136 mg/dL (65-99) H 09/17/18 06:01 Hemoglobin A1c 5.9 % 09/09/18 11:24 Calcium 9.0 mg/dL (8.5-10.1) 09/19/18 04:49 Corrected Calcium 10.5 mg/dL (8.5-10.1) H 09/19/18 04:49 Magnesium 1.8 mg/dL (1.7-2.9) 09/10/18 05:37 Iron 9 ug/dL (50-175) L 09/14/18 05:20 Transferrin 133 mg/dL (202-364) L 09/14/18 05:20 Ferritin 45 ng/mL (26-388) 09/14/18 05:20 Total Bilirubin 0.20 mg/dL (0.2-1.0) 09/19/18 04:49 AST 43 Units/L (15-37) H 09/19/18 04:49 ALT 55 Units/L (12-78) 09/19/18 04:49 Alkaline Phosphatase 60 Units/L (46-116) 09/19/18 04:49 Total Protein 5.7 g/dL (6.4-8.2) L 09/19/18 04:49 Albumin 2.1 g/dL (3.4-5.0) L 09/19/18 04:49 Globulin 3.6 g/dL (2.5-4.5) 09/19/18 04:49 Albumin/Globulin Ratio 0.6 Ratio (1.1-2.1) L 09/19/18 04:49 Total PSA 9.14 ng/mL (0.13-4.0) H 09/14/18 05:20 Vitamin B12 901 pg/mL (193-986) 09/14/18 05:20 Folate 7.8 ng/mL (>8.6) L 09/14/18 05:20 Specimen Type Catherized urine 09/10/18 10:28 Urine Color Yellow (YELLOW) 09/10/18 10:28 Urine Appearance Clear (CLEAR) 09/10/18 10:28 Urine pH 5.0 (5.0 - 8.0) 09/10/18 10:28 Ur Specific [place] 1.015 (1.000-1.030) 09/10/18 10:28 Urine Protein 4+ (NEGATIVE) 09/10/18 10:28 Urine Glucose (UA) 1+ (NEGATIVE) 09/10/18 10:28 Urine Ketones Negative (NEGATIVE) 09/10/18 10:28 Urine Occult Blood 1+ (NEGATIVE) 09/10/18 10:28 Urine Nitrite Negative (NEGATIVE) 09/10/18 10:28 Urine Bilirubin Negative (NEGATIVE) 09/10/18 10:28 Urine Urobilinogen Normal (NORMAL) 09/10/18 10:28 Ur Leukocyte Esterase Negative (NEGATIVE) 09/10/18 10:28 Urine RBC 3-5 /HPF (NONE SEEN) 09/10/18 10:28 Urine WBC 0-2 /HPF (NONE SEEN) 09/10/18 10:28 Ur Squamous Epith Cells Rare /HPF (NEGATIVE) 09/10/18 10:28 Amorphous Sediment 2+ /HPF (NEGATIVE) 09/10/18 10:28 Urine Bacteria Trace /HPF (NEGATIVE) 09/10/18 10:28 Urine Mucus Few /HPF (NEGATIVE) 09/10/18 10:28 Ur Culture Indicated? No/not indicated 09/10/18 10:28 Fluid Source Synovial 09/16/18 09:38 Fluid Crystals None seen (None Seen) 09/16/18 09:38 Synovial WBC 13593 Cubic/mm (0-150) H 09/16/18 09:38 Synovial Uric Acid Cancelled 09/16/18 09:38 Stool Description 30g firm,mucoid grn 09/16/18 09:12 Stl Occult Blood (IFOB) Positive (NEGATIVE) A 09/16/18 09:12 Cytology Specimen To follow 09/16/18 09:38 Miscellaneous Test See comment 09/16/18 09:50 - Plan (1) Hypertensive urgency Status: Acute Plan: CONTINUOUS CARDIAC MONITORING ADN BLOOD SUGAR CONTROL,. AM LABS AND CXR. BP CONTROL, SUPPLEMENTAL O2. STRICT I & OS (2) Pneumonia Status: Acute Qualifiers: Pneumonia type: due to unspecified organism Laterality: right Lung location: lower lobe of lung Qualified Code(s): J18.1 - Lobar pneumonia, uns pecified organism Plan: BLOOD AND SPUTUM CULTURES IV ATBX, RESP THERAPY. 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 Diabetes mellitus complication status: without complication Qualified Code(s): E11.9 - Type 2 diabetes mellitus without complications; 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
[2018-09-19] MEDS: LIPITOR TAB 40 MG PO SCH (21:25)
[2018-09-19] MEDS: ZANTAC PO SCH (21:25)
[2018-09-19] MEDS: RESTORIL CAP 15 MG PO PRN (21:25)
[2018-09-19] MEDS: SNACK - Diabetic Appropriate PO SCH (21:26)
[2018-09-20] MEDS: DUONEB 0.5 MG/3 MG NEB SCH ×6 (00:32→20:02)
[2018-09-20] MEDS ORDERED: NS 1/2 1000 ML IV 1,000 ML IV ONE (05:07)
[2018-09-20] MEDS: NORCO 5/325 MG TAB PO PRN ×3 (05:14→19:57)
[2018-09-20] MEDS: APRESOLINE TAB 25 MG PO SCH ×3 (05:14→21:24)
[2018-09-20] MEDS: NS 1/2 1000 ML IV 1,000 ML IV PRN (05:14)
[2018-09-20 05:15] LABS: BASOPHILS % (AUTO) 0.6 % (0.2-1.0); EOSINOPHILS # (AUTO) 0.2 x10^3/uL (0.0-0.2); HEMATOCRIT 23.4 % (42.0-54.0); HEMOGLOBIN 7.8 g/dL (13.5-18.0); LYMPHOCYTES # (AUTO) 1.1 X10^3/uL (1.3-2.9); LYMPHOCYTES % (AUTO) 15.6 % (21.0-51.0); MEAN CORPUSCULAR HEMOGLOBIN 29.4 pg (27.0-34.0); MEAN CORPUSCULAR HGB CONC 33.2 g/dL (33.0-35.0); MEAN CORPUSCULAR VOLUME 88.6 fL (80.0-100.0); MEAN PLATELET VOLUME 8.7 fL (7.4-11.0); MONOCYTES # (AUTO) 0.6 x10^3/uL (0.3-0.8); NEUTROPHILS # (AUTO) 5.3 x10^3/uL (2.2-4.8); NEUTROPHILS % (AUTO) 72.8 % (42.0-75.0); PLATELET COUNT 195 X10^3/uL (150.0-450.0); RED BLOOD COUNT 2.64 X10^6/uL (4.7-6.0); RED CELL DISTRIBUTION WIDTH 16.2 % (11.6-16.5); WHITE BLOOD COUNT 7.3 X10^3/uL (3.6-10.0)
[2018-09-20 05:20] LABS: ALANINE AMINOTRANSFERASE 52 Units/L (12-78); ALBUMIN 2.2 g/dL (3.4-5.0); ALKALINE PHOSPHATASE 56 Units/L (46-116); ASPARTATE AMINO TRANSFERASE 33 Units/L (15-37); BLOOD UREA NITROGEN 39 mg/dL (7-18); CALCIUM 8.9 mg/dL (8.5-10.1); CARBON DIOXIDE 25.5 mmol/L (21-32); CHLORIDE 107 mmol/L (98-107); COR CA(FOR HYPOALB) 10.3 mg/dL (8.5-10.1); CREATININE 1.97 mg/dL (0.70-1.30); SODIUM 140 mmol/L (136-145); TOTAL PROTEIN 5.6 g/dL (6.4-8.2); eGFR NON BLACK RACES 35 (>60)
[2018-09-20 05:37] LABS: ANISOCYTOSIS SLIGHT; HYPOCHROMASIA SLIGHT; PLATELET MORPHOLOGY COMMENT NORMAL (NORMAL)
[2018-09-20] MEDS: PULMICORT NEB TX 0.5 MG NEB SCH ×2 (08:26→20:02)
[2018-09-20] MEDS: ALDACTONE TAB 25 MG PO SCH (09:41)
[2018-09-20] MEDS: HEMOCYTE-PLUS PO SCH (09:42)
[2018-09-20] MEDS: CHECK PATCH XX SCH ×2 (09:42→21:27)
[2018-09-20] MEDS: COREG TAB 12.5 MG PO SCH ×2 (09:42→21:24)
[2018-09-20] MEDS: FLOMAX PO SCH (09:42)
[2018-09-20] MEDS: LOVENOX INJ 30 MG SYR SC SCH (09:43)
[2018-09-20] MEDS: PLAVIX PO SCH (09:43)
[2018-09-20] MEDS: ULTRAM PO SCH ×2 (09:44→21:24)
[2018-09-20] MEDS: PROSCAR PO SCH (09:44)
[2018-09-20] MEDS: PROCARDIA XL PO SCH (09:44)
[2018-09-20] MEDS: PROTONIX INJ 40 MG VIAL IVP SCH (09:44)
[2018-09-20] MEDS: VIBRAMYCIN 100 MG in NS 100 ML IV + SPIKE MINIBAG* 100 ML IV SCH ×2 (09:45→21:25)
[2018-09-20] MEDS: ROBITUSSIN DM PO SCH ×4 (09:45→21:26)
[2018-09-20] MEDS: CATAPRES-TTS-2 TD SCH (13:42)
[2018-09-20] MEDS: SOLU-Medrol 40 MG VIAL IVP SCH (21:23)
[2018-09-20] MEDS: SNACK - Diabetic Appropriate PO SCH (21:23)
[2018-09-20] MEDS: LIPITOR TAB 40 MG PO SCH (21:23)
[2018-09-20] MEDS: ZANTAC PO SCH (21:24)
[2018-09-21] MEDS: NORCO 5/325 MG TAB PO PRN (01:35)
[2018-09-21 01:45] LABS: BILIRUBIN,URINE NEGATIVE (NEGATIVE); BLOOD/HEMOGLOBIN,URINE 5+ (NEGATIVE); GLUCOSE, URINE NEGATIVE (NEGATIVE); KETONES,URINE NEGATIVE (NEGATIVE); LEUKOCYTE ESTERASE ,URINE NEGATIVE (NEGATIVE); NITRITES,URINE NEGATIVE (NEGATIVE); PROTEIN,URINE 3+ (NEGATIVE); UROBILINOGEN,URINE NORMAL (NORMAL)
[2018-09-21 01:54] LABS: APPEARANCE,URINE CLEAR (CLEAR); BACTERIA,URINE NEGATIVE /HPF (NEGATIVE); COLOR,URINE PALE YELLOW (YELLOW); RBC,URINE 30-50 /HPF (NONE SEEN); SQUAMOUS EPITHELIAL CELL,UR RARE /HPF (NEGATIVE)
[2018-09-21 05:27] LABS: BASOPHILS % (AUTO) 0.2 % (0.2-1.0); EOSINOPHILS % (AUTO) 0.1 % (0.9-2.9); HEMATOCRIT 24.9 % (42.0-54.0); HEMOGLOBIN 8.3 g/dL (13.5-18.0); LYMPHOCYTES # (AUTO) 0.4 X10^3/uL (1.3-2.9); LYMPHOCYTES % (AUTO) 5.8 % (21.0-51.0); MEAN CORPUSCULAR HEMOGLOBIN 29.4 pg (27.0-34.0); MEAN CORPUSCULAR HGB CONC 33.4 g/dL (33.0-35.0); MEAN PLATELET VOLUME 8.5 fL (7.4-11.0); MONOCYTES # (AUTO) 0.1 x10^3/uL (0.3-0.8); MONOCYTES % (AUTO) 2.2 % (0.0-13.0); NEUTROPHILS # (AUTO) 5.9 x10^3/uL (2.2-4.8); NEUTROPHILS % (AUTO) 91.7 % (42.0-75.0); PLATELET COUNT 216 X10^3/uL (150.0-450.0); RED BLOOD COUNT 2.83 X10^6/uL (4.7-6.0); RED CELL DISTRIBUTION WIDTH 16.4 % (11.6-16.5); WHITE BLOOD COUNT 6.4 X10^3/uL (3.6-10.0)
[2018-09-21 05:28] LABS: ALBUMIN 2.3 g/dL (3.4-5.0); CALCIUM 9.4 mg/dL (8.5-10.1); CARBON DIOXIDE 24.4 mmol/L (21-32); COR CA(FOR HYPOALB) 10.8 mg/dL (8.5-10.1); CREATININE 1.95 mg/dL (0.70-1.30); TOTAL PROTEIN 5.8 g/dL (6.4-8.2)
[2018-09-21] MEDS: APRESOLINE TAB 25 MG PO SCH ×3 (05:31→20:59)
[2018-09-21] MEDS: SOLU-Medrol 40 MG VIAL IVP SCH ×2 (05:32→14:00)
[2018-09-21 05:51] LABS: ANISOCYTOSIS SLIGHT; HYPOCHROMASIA SLIGHT; PLATELET MORPHOLOGY COMMENT NORMAL (NORMAL)
--- NOTE | 2018-09-21 07:35 | RAD ---
HISTORY: Shortness of breath Study: Chest AP portable Comparison: 09/18/2018 Findings: Patient is status post median sternotomy and CABG. The heart is enlarged. The aorta is calcified and mildly ectatic. No congestive heart failure is noted. No acute alveolar infiltrates are identified. No pleural effusions are present. The bony thorax is unremarkable. IMPRESSION: Continued cardiomegaly without definite congestive heart failure No acute infiltrates Reported By:
[2018-09-21] MEDS: PROTONIX INJ 40 MG VIAL IVP SCH (08:11)
[2018-09-21] MEDS: ROBITUSSIN DM PO SCH ×4 (08:13→20:56)
[2018-09-21] MEDS: PROCARDIA XL PO SCH (08:13)
[2018-09-21] MEDS: ULTRAM PO SCH ×2 (08:14→20:57)
[2018-09-21] MEDS: COREG TAB 12.5 MG PO SCH ×2 (08:14→20:57)
[2018-09-21] MEDS: ALDACTONE TAB 25 MG PO SCH (08:15)
[2018-09-21] MEDS: HEMOCYTE-PLUS PO SCH (08:15)
[2018-09-21] MEDS: PROSCAR PO SCH (08:15)
[2018-09-21] MEDS: FLOMAX PO SCH (08:15)
[2018-09-21] MEDS: LOVENOX INJ 30 MG SYR SC SCH (08:16)
[2018-09-21] MEDS: PLAVIX PO SCH (08:16)
[2018-09-21] MEDS: CHECK PATCH XX SCH ×2 (08:18→21:04)
[2018-09-21] MEDS: VIBRAMYCIN 100 MG in NS 100 ML IV + SPIKE MINIBAG* 100 ML IV SCH ×2 (08:18→20:56)
[2018-09-21] MEDS: PULMICORT NEB TX 0.5 MG NEB SCH ×2 (09:10→20:38)
[2018-09-21] MEDS: DUONEB 0.5 MG/3 MG NEB PRN (09:10)
[2018-09-21] MEDS: HumuLIN R SUBCUT PRN ×4 (11:21→21:21)
--- NOTE | 2018-09-21 17:21 | PCM.PROG ---
Progress Note - Progress Note for Day of Date of Exam: 09/21/18 - Subjective Subjective: 83 BM PATIENT OF WHO WAS AN ER ADMISSION WITH AMS FROM HYPOGLYCEMIA AND HYPERTENSIVE URGENCY. PT HAS CXR WITH POSSIBLE ASPIRATION PNEUMONIA. PT CURRENTLY ON IV ATBX WITH GENTLE IV HYDRATION, BUN35, CREAT 1.95 THIS AM. BLOOD CULTURES PENDING NEGATIVE AT THIS TIME. ON EXAMINATION, HE IS NOTED WITH DIMINISHED LUNG BASES. THERE IS SWELLING NOTED RIGHT KNEE THIS AM AFTER 30CC SYNOVIAL FLUID REMOVED ON FRIDAY. PT STARTED ON PO NORCO WITH CONTROLLED PAIN IF TAKE EVERY 4 HRS. S/P LOW DOSE SOLU MEDROL WITH MILD PAIN IMPROVEMENT PER PT. PT DENIES ANY CP OR SOB. CXR THIS AM WITHOUT ACUTE FINDINGS., CONTINUED ON DOXYCYCLINE. PT ON PO IRON REPLACEMENT THERAPY. PROTONIX 40MG IV DAILY. PLAN TO ADMIT FOR SWING BED REHAB, FAMILY SEEKING PERMANENT NH PLACEMENT. PT CO ABDOMINAL PAIN YESTERDAY WITH KUB REVEALING CONSTIPATION, STARTED ON MOM AND RESUMED COLACE. - Past Medical Family Social History Past Med/Fam/Surg Hx: No changes since H&P Allergies: Allergies ketorolac [From Toradol] Allergy (Verified 09/06/18 16:24) lisinopril Allergy (Verified 09/06/18 16:24) - Review of Systems ROS: No change since H&P - Vital Signs and I&O's Vital Signs: Temperature 98.0 F Pulse Rate [Apical] 86 Pulse Rate [Left Radial] 68 Pulse Rate 71 Respiratory Rate 20 Blood Pressure [Right Arm] 164/77 Blood Pressure [Left Arm] 233/102 Blood Pressure 161/58 O2 Sat by Pulse Oximetry 98 Intake and Output: Intake & Output 09/19/18 09/20/18 09/21/18 09/22/18 11:59 11:59 11:59 11:59 Intake Total 1979 / 1979 1430 / 1430 1625 / 1625 826 / 826 Output Total 2400 / 2400 2175 / 2175 4963 / 4963 750 / 750 Balance -420 / -420 -745 / -745 -3338 / -3338 76 / - Physical Exam Oriented: Person Eyes: Normal Ear: Normal Nose: Normal Throat: Dry Respiratory: Diminished Cardiovascular: Normal, Murmur : Normal Auscultation: Bowel Sounds: Normal Tenderness: Suprapubic, Mild Skin: Decreased Turgur Musculoskeletal: Right, Left, Arm, Knee, Back:Lumbar, Instability, Crepitance Mood Description: Calm Speech Pattern: Clear, Appropriate - Laboratory and Diagnostics Result Diagrams: 09/21/18 04:32 09/21/18 04:32 Labs: 09/16/18 09:38 Synovial Fluid - Final 09/16/18 09:38 Synovial Fluid Gram Stain - Final 09/09/18 13:03 Blood Blood Culture - Final 09/09/18 13:00 Blood Blood Culture - Final Laboratory WBC 6.4 X10^3/uL (3.6-10.0) 09/21/18 04:32 RBC 2.83 X10^6/uL (4.7-6.0) L 09/21/18 04:32 Hgb 8.3 g/dL (13.5-18.0) L 09/21/18 04:32 Hct 24.9 % (42.0-54.0) L 09/21/18 04:32 MCV 88.0 fL (80.0-100.0) 09/21/18 04:32 MCH 29.4 pg (27.0-34.0) 09/21/18 04:32 MCHC 33.4 g/dL (33.0-35.0) 09/21/18 04:32 RDW 16.4 % (11.6-16.5) 09/21/18 04:32 Plt Count 216 X10^3/uL (150.0-450.0) 09/21/18 04:32 Plt Count Comment Adequate (ADEQUATE) 09/21/18 04:32 MPV 8.5 fL (7.4-11.0) 09/21/18 04:32 Neut % (Auto) 91.7 % (42.0-75.0) H 09/21/18 04:32 Lymph % (Auto) 5.8 % (21.0-51.0) L 09/21/18 04:32 [place] % (Auto) 2.2 % (0.0-13.0) 09/21/18 04:32 Eos % (Auto) 0.1 % (0.9-2.9) L 09/21/18 04:32 Baso % (Auto) 0.2 % (0.2-1.0) 09/21/18 04:32 Neut # (Auto) 5.9 x10^3/uL (2.2-4.8) H 09/21/18 04:32 Lymph # (Auto) 0.4 X10^3/uL (1.3-2.9) L 09/21/18 04:32 [place] # (Auto) 0.1 x10^3/uL (0.3-0.8) L 09/21/18 04:32 Eos # (Auto) 0.0 x10^3/uL (0.0-0.2) 09/21/18 04:32 Baso # (Auto) 0.0 X10^3/uL (0.0-0.1) 09/21/18 04:32 Absolute Nucleated RBC 0.0 /100WBC 09/21/18 04:32 Total Counted 100 09/21/18 04:32 Neutrophils % (Manual) 92 % (39-76) H 09/21/18 04:32 Lymphocytes % (Manual) 7 % (13-43) L 09/21/18 04:32 Monocytes % (Manual) 1 % (4-9) L 09/21/18 04:32 Plt Morphology Comment Normal (NORMAL) 09/21/18 04:32 RBC Morphology Abnormal (NORMAL) 09/21/18 04:32 Hypochromasia Slight A 09/21/18 04:32 Anisocytosis Slight A 09/21/18 04:32 Sample Site Right brachial 09/09/18 11:10 ABG pH 7.410 (7.35-7.45) 09/09/18 11:10 ABG pCO2 45.0 mmHg (35.0-45.0) 09/09/18 11:10 ABG pO2 50.0 mmHg (80.0-100.0) L 09/09/18 11:10 ABG HCO3 28.5 mmol/L (22-26) H 09/09/18 11:10 ABG O2 Saturation 85.0 % (90-100) L 09/09/18 11:10 ABG Base Excess 3.3 mmol/L (-2.0-2.0) H 09/09/18 11:10 Mitch Test Na 09/09/18 11:10 A-a Gradient 43.0 mmHg 09/09/18 11:10 FiO2 21.0 09/09/18 11:10 Blood Gas Comments Maria Antonia well aw 09/09/18 11:10 Sodium 140 mmol/L (136-145) 09/21/18 04:32 Corrected Sodium 142 mmol/L (136-145) 09/21/18 04:32 Potassium 5.0 mmol/L (3.5-5.1) 09/21/18 04:32 Chloride 106 mmol/L (98-107) 09/21/18 04:32 Carbon Dioxide 24.4 mmol/L (21-32) 09/21/18 04:32 BUN 35 mg/dL (7-18) H 09/21/18 04:32 Creatinine 1.95 mg/dL (0.70-1.30) H 09/21/18 04:32 Est GFR (MDRD) Af Amer 42 (>60) L 09/21/18 04:32 Est GFR (MDRD) Non-Af 35 (>60) L 09/21/18 04:32 Glucose 166 mg/dL (65-99) H 09/21/18 04:32 POC Glucose (mg/dL) 136 mg/dL (65-99) H 09/17/18 06:01 Hemoglobin A1c 5.9 % 09/09/18 11:24 Calcium 9.4 mg/dL (8.5-10.1) 09/21/18 04:32 Corrected Calcium 10.8 mg/dL (8.5-10.1) H 09/21/18 04:32 Magnesium 1.8 mg/dL (1.7-2.9) 09/10/18 05:37 Iron 9 ug/dL (50-175) L 09/14/18 05:20 Transferrin 133 mg/dL (202-364) L 09/14/18 05:20 Ferritin 45 ng/mL (26-388) 09/14/18 05:20 Total Bilirubin 0.30 mg/dL (0.2-1.0) 09/21/18 04:32 AST 35 Units/L (15-37) 09/21/18 04:32 ALT 55 Units/L (12-78) 09/21/18 04:32 Alkaline Phosphatase 64 Units/L (46-116) 09/21/18 04:32 Total Protein 5.8 g/dL (6.4-8.2) L 09/21/18 04:32 Albumin 2.3 g/dL (3.4-5.0) L 09/21/18 04:32 Globulin 3.5 g/dL (2.5-4.5) 09/21/18 04:32 Albumin/Globulin Ratio 0.7 Ratio (1.1-2.1) L 09/21/18 04:32 Total PSA 9.14 ng/mL (0.13-4.0) H 09/14/18 05:20 Vitamin B12 901 pg/mL (193-986) 09/14/18 05:20 Folate 7.8 ng/mL (>8.6) L 09/14/18 05:20 Specimen Type Catherized urine 09/21/18 01:27 Urine Color Pale yellow (YELLOW) 09/21/18 01:27 Urine Appearance Clear (CLEAR) 09/21/18 01:27 Urine pH 8.0 (5.0 - 8.0) 09/21/18 01:27 Ur Specific [place] 1.010 (1.000-1.030) 09/21/18 01:27 Urine Protein 3+ (NEGATIVE) 09/21/18 01:27 Urine Glucose (UA) Negative (NEGATIVE) 09/21/18 01:27 Urine Ketones Negative (NEGATIVE) 09/21/18 01:27 Urine Occult Blood 5+ (NEGATIVE) 09/21/18 01:27 Urine Nitrite Negative (NEGATIVE) 09/21/18 01:27 Urine Bilirubin Negative (NEGATIVE) 09/21/18 01:27 Urine Urobilinogen Normal (NORMAL) 09/21/18 01:27 Ur Leukocyte Esterase Negative (NEGATIVE) 09/21/18 01:27 Urine RBC 30-50 /HPF (NONE SEEN) 09/21/18 01:27 Urine WBC None seen /HPF (NONE SEEN) 09/21/18 01:27 Ur Squamous Epith Cells Rare /HPF (NEGATIVE) 09/21/18 01:27 Amorphous Sediment 2+ /HPF (NEGATIVE) 09/10/18 10:28 Urine Bacteria Negative /HPF (NEGATIVE) 09/21/18 01:27 Urine Mucus Few /HPF (NEGATIVE) 09/10/18 10:28 Ur Culture Indicated? No/not indicated 09/21/18 01:27 Fluid Source Synovial 09/16/18 09:38 Fluid Crystals None seen (None Seen) 09/16/18 09:38 Synovial WBC 83080 Cubic/mm (0-150) H 09/16/18 09:38 Synovial Uric Acid Cancelled 09/16/18 09:38 Stool Description 30g firm,mucoid grn 09/16/18 09:12 Stl Occult Blood (IFOB) Positive (NEGATIVE) A 09/16/18 09:12 Cytology Specimen To follow 09/16/18 09:38 Miscellaneous Test See comment 09/16/18 09:50 - Plan (1) Hypertensive urgency Status: Acute Plan: CONTINUOUS CARDIAC MONITORING ADN BLOOD SUGAR CONTROL,. AM LABS AND CXR. BP CONTROL, SUPPLEMENTAL O2. STRICT I & OS (2) Pneumonia Status: Acute Qualifiers: Pneumonia type: due to unspecified organism Laterality: right Lung location: lower lobe of lung Qualified Code(s): J18.1 - Lobar pneumonia, unspecified organism Plan: BLOOD AND SPUTUM CULTURES IV ATBX, RESP THERAPY. SUPPLEMENTAL O2 (3) Hypoglycemia Status: Acute (4) Chronic kidney disease (CKD) Status: Chronic (5) CHF (congestive heart failure) Status: Chronic Qualifiers: Qualified Code(s): I50.23 - Acute on chronic systolic (congestive) heart failure (6) Hypertension Status: Chronic Qualifiers: Hypertension type: unspecified Qualified Code(s): I10 - Essential (primary) hypertension (7) Diabetes mellitus Status: Chronic Qualifiers: Diabetes mellitus type: type 2 Diabetes mellitus skilled nursing insulin use: with intermodal truck driver use Diabetes mellitus complication status: without complication Qualified Code(s): E11.9 - Type 2 diabetes mellitus without complications; Z79.4 - group home (current) use of insulin; Z79.4 - watermelon inspector (current) use of insulin; Z79.4 - group home (current) use of insulin; Z79.4 - group home (current) use of insulin (8) Hyperlipidemia Status: Chronic Qualifiers: Hyperlipidemia type: mixed hyperlipidemia Qualified Code(s): E78.2 - Mixed hyperlipidemia (9) Coronary artery disease Status: Chronic (10) GERD (gastroesophageal reflux disease) Status: Chronic Qualifiers: Esophagitis presence: esophagitis presence not specified Qualified Code(s): K21.9 - Gastro-esophageal reflux disease without esophagitis
[2018-09-21] MEDS: LIPITOR TAB 40 MG PO SCH (20:57)
[2018-09-21] MEDS: ZANTAC PO SCH (21:03)
[2018-09-21] MEDS: SNACK - Diabetic Appropriate PO SCH (21:05)
[2018-09-22] MEDS ORDERED: NS 1/2 1000 ML IV 1,000 ML IV ONE (04:48)
[2018-09-22] MEDS: NS 1/2 1000 ML IV 1,000 ML IV PRN (05:04)
[2018-09-22] MEDS: APRESOLINE TAB 25 MG PO SCH ×3 (05:06→21:39)
[2018-09-22 05:35] LABS: BASOPHILS % (AUTO) 0.3 % (0.2-1.0); EOSINOPHILS # (AUTO) 0.1 x10^3/uL (0.0-0.2); EOSINOPHILS % (AUTO) 0.6 % (0.9-2.9); LYMPHOCYTES % (AUTO) 10.1 % (21.0-51.0); MEAN CORPUSCULAR HEMOGLOBIN 29.9 pg (27.0-34.0); MEAN CORPUSCULAR HGB CONC 33.4 g/dL (33.0-35.0); MEAN CORPUSCULAR VOLUME 89.5 fL (80.0-100.0); MEAN PLATELET VOLUME 8.7 fL (7.4-11.0); MONOCYTES # (AUTO) 0.7 x10^3/uL (0.3-0.8); MONOCYTES % (AUTO) 7.3 % (0.0-13.0); NEUTROPHILS # (AUTO) 8.3 x10^3/uL (2.2-4.8); NEUTROPHILS % (AUTO) 81.7 % (42.0-75.0); PLATELET COUNT 226 X10^3/uL (150.0-450.0); RED BLOOD COUNT 2.68 X10^6/uL (4.7-6.0); RED CELL DISTRIBUTION WIDTH 16.3 % (11.6-16.5); WHITE BLOOD COUNT 10.2 X10^3/uL (3.6-10.0)
[2018-09-22 05:41] LABS: ALBUMIN 2.3 g/dL (3.4-5.0); CALCIUM 9.3 mg/dL (8.5-10.1); CARBON DIOXIDE 25.8 mmol/L (21-32); COR CA(FOR HYPOALB) 10.7 mg/dL (8.5-10.1); CREATININE 1.96 mg/dL (0.70-1.30); TOTAL PROTEIN 5.8 g/dL (6.4-8.2)
[2018-09-22] MEDS: PROTONIX INJ 40 MG VIAL IVP SCH (08:52)
[2018-09-22] MEDS: ROBITUSSIN DM PO SCH ×4 (08:53→21:38)
[2018-09-22] MEDS: COREG TAB 12.5 MG PO SCH ×2 (08:53→21:39)
[2018-09-22] MEDS: HEMOCYTE-PLUS PO SCH (08:53)
[2018-09-22] MEDS: PLAVIX PO SCH (08:53)
[2018-09-22] MEDS: PROCARDIA XL PO SCH (08:53)
[2018-09-22] MEDS: ALDACTONE TAB 25 MG PO SCH (08:54)
[2018-09-22] MEDS: FLOMAX PO SCH (08:54)
[2018-09-22] MEDS: ULTRAM PO SCH ×2 (08:55→21:38)
[2018-09-22] MEDS: CHECK PATCH XX SCH ×2 (08:56→22:35)
[2018-09-22] MEDS: PROSCAR PO SCH (08:56)
[2018-09-22] MEDS: LOVENOX INJ 30 MG SYR SC SCH (08:57)
[2018-09-22] MEDS: VIBRAMYCIN 100 MG in NS 100 ML IV + SPIKE MINIBAG* 100 ML IV SCH ×2 (08:59→21:38)
[2018-09-22] MEDS: DUONEB 0.5 MG/3 MG NEB PRN ×2 (09:22→16:55)
[2018-09-22] MEDS: PULMICORT NEB TX 0.5 MG NEB SCH ×2 (09:22→20:31)
[2018-09-22] MEDS: HumuLIN R SUBCUT PRN ×2 (11:23→16:05)
--- NOTE | 2018-09-22 15:41 | PCM.PROG ---
Progress Note - Progress Note for Day of Date of Exam: 09/22/18 - Subjective Subjective: 83 BM PATIENT OF WHO WAS AN ER ADMISSION WITH AMS FROM HYPOGLYCEMIA AND HYPERTENSIVE URGENCY. PT HAS CXR WITH POSSIBLE ASPIRATION PNEUMONIA. PT CURRENTLY ON IV ATBX WITH GENTLE IV HYDRATION, BUN35, CREAT 1.95 THIS AM. BLOOD CULTURES PENDING NEGATIVE AT THIS TIME. ON EXAMINATION, HE IS NOTED WITH DIMINISHED LUNG BASES. THERE IS SWELLING NOTED RIGHT KNEE THIS AM AFTER 30CC SYNOVIAL FLUID REMOVED ON FRIDAY. PT STARTED ON PO NORCO WITH CONTROLLED PAIN IF TAKE EVERY 4 HRS. S/P LOW DOSE SOLU MEDROL WITH MILD PAIN IMPROVEMENT PER PT. PT DENIES ANY CP OR SOB. CXR THIS AM WITHOUT ACUTE FINDINGS., CONTINUED ON DOXYCYCLINE. PT ON PO IRON REPLACEMENT THERAPY. PROTONIX 40MG IV DAILY. PLAN TO ADMIT FOR SWING BED REHAB, FAMILY SEEKING PERMANENT NH PLACEMENT. PT CO ABDOMINAL PAIN YESTERDAY WITH KUB REVEALING CONSTIPATION, STARTED ON MOM AND RESUMED COLACE. - Past Medical Family Social History Past Med/Fam/Surg Hx: No changes since H&P Allergies: Allergies ketorolac [From Toradol] Allergy (Verified 09/06/18 16:24) lisinopril Allergy (Verified 09/06/18 16:24) - Review of Systems ROS: No change since H&P - Vital Signs and I&O's Vital Signs: Temperature 97.5 F Pulse Rate [Apical] 86 Pulse Rate [Left Radial] 68 Pulse Rate 76 Respiratory Rate 20 Blood Pressure [Right Arm] 164/77 Blood Pressure [Left Arm] 233/102 Blood Pressure 189/82 O2 Sat by Pulse Oximetry 98 Intake and Output: Intake & Output 09/20/18 09/21/18 09/22/18 09/23/18 11:59 11:59 11:59 11:59 Intake Total 1430 / 1430 1625 / 1625 1686 / 1686 313 / 313 Output Total 2175 / 2175 4963 / 4963 1974 Balance -745 / -745 -3338 / -3338 -289 / -289 313 / 313 - Physical Exam Oriented: Person Eyes: Normal Ear: Normal Nose: Normal Throat: Dry Respiratory: Diminished Cardiovascular: Normal, Murmur : Normal Auscultation: Bowel Sounds: Normal Tenderness: Suprapubic, Mild Skin: Decreased Turgur Musculoskeletal: Right, Left, Arm, Knee, Back:Lumbar, Instability, Crepitance Mood Description: Calm Speech Pattern: Clear, Appropriate - Laboratory and Diagnostics Result Diagrams: 09/22/18 04:26 09/22/18 04:26 Labs: 09/16/18 09:38 Synovial Fluid - Final 09/16/18 09:38 Synovial Fluid Gram Stain - Final 09/09/18 13:03 Blood Blood Culture - Final 09/09/18 13:00 Blood Blood Culture - Final Laboratory WBC 10.2 X10^3/uL (3.6-10.0) H 09/22/18 04:26 RBC 2.68 X10^6/uL (4.7-6.0) L 09/22/18 04:26 Hgb 8.0 g/dL (13.5-18.0) L 09/22/18 04:26 Hct 24.0 % (42.0-54.0) L 09/22/18 04:26 MCV 89.5 fL (80.0-100.0) 09/22/18 04:26 MCH 29.9 pg (27.0-34.0) 09/22/18 04:26 MCHC 33.4 g/dL (33.0-35.0) 09/22/18 04:26 RDW 16.3 % (11.6-16.5) 09/22/18 04:26 Plt Count 226 X10^3/uL (150.0-450.0) 09/22/18 04:26 Plt Count Comment Adequate (ADEQUATE) 09/21/18 04:32 MPV 8.7 fL (7.4-11.0) 09/22/18 04:26 Neut % (Auto) 81.7 % (42.0-75.0) H 09/22/18 04:26 Lymph % (Auto) 10.1 % (21.0-51.0) L 09/22/18 04:26 [place] % (Auto) 7.3 % (0.0-13.0) 09/22/18 04:26 Eos % (Auto) 0.6 % (0.9-2.9) L 09/22/18 04:26 Baso % (Auto) 0.3 % (0.2-1.0) 09/22/18 04:26 Neut # (Auto) 8.3 x10^3/uL (2.2-4.8) H 09/22/18 04:26 Lymph # (Auto) 1.0 X10^3/uL (1.3-2.9) L 09/22/18 04:26 [place] # (Auto) 0.7 x10^3/uL (0.3-0.8) 09/22/18 04:26 Eos # (Auto) 0.1 x10^3/uL (0.0-0.2) 09/22/18 04:26 Baso # (Auto) 0.0 X10^3/uL (0.0-0.1) 09/22/18 04:26 Absolute Nucleated RBC 0.1 /100WBC 09/22/18 04:26 Total Counted 100 09/21/18 04:32 Neutrophils % (Manual) 92 % (39-76) H 09/21/18 04:32 Lymphocytes % (Manual) 7 % (13-43) L 09/21/18 04:32 Monocytes % (Manual) 1 % (4-9) L 09/21/18 04:32 Plt Morphology Comment Normal (NORMAL) 09/21/18 04:32 RBC Morphology Abnormal (NORMAL) 09/21/18 04:32 Hypochromasia Slight A 09/21/18 04:32 Anisocytosis Slight A 09/21/18 04:32 Sample Site Right brachial 09/09/18 11:10 ABG pH 7.410 (7.35-7.45) 09/09/18 11:10 ABG pCO2 45.0 mmHg (35.0-45.0) 09/09/18 11:10 ABG pO2 50.0 mmHg (80.0-100.0) L 09/09/18 11:10 ABG HCO3 28.5 mmol/L (22-26) H 09/09/18 11:10 ABG O2 Saturation 85.0 % (90-100) L 09/09/18 11:10 ABG Base Excess 3.3 mmol/L (-2.0-2.0) H 09/09/18 11:10 Mitch Test Na 09/09/18 11:10 A-a Gradient 43.0 mmHg 09/09/18 11:10 FiO2 21.0 09/09/18 11:10 Blood Gas Comments Maria Antonia well aw 09/09/18 11:10 Sodium 143 mmol/L (136-145) 09/22/18 04:26 Corrected Sodium 144 mmol/L (136-145) 09/22/18 04:26 Potassium 4.2 mmol/L (3.5-5.1) 09/22/18 04:26 Chloride 109 mmol/L (98-107) H 09/22/18 04:26 Carbon Dioxide 25.8 mmol/L (21-32) 09/22/18 04:26 BUN 38 mg/dL (7-18) H 09/22/18 04:26 Creatinine 1.96 mg/dL (0.70-1.30) H 09/22/18 04:26 Est GFR (MDRD) Af Amer 42 (>60) L 09/22/18 04:26 Est GFR (MDRD) Non-Af 35 (>60) L 09/22/18 04:26 Glucose 129 mg/dL (65-99) H 09/22/18 04:26 POC Glucose (mg/dL) 136 mg/dL (65-99) H 09/17/18 06:01 Hemoglobin A1c 5.9 % 09/09/18 11:24 Calcium 9.3 mg/dL (8.5-10.1) 09/22/18 04:26 Corrected Calcium 10.7 mg/dL (8.5-10.1) H 09/22/18 04:26 Magnesium 1.8 mg/dL (1.7-2.9) 09/10/18 05:37 Iron 9 ug/dL (50-175) L 09/14/18 05:20 Transferrin 133 mg/dL (202-364) L 09/14/18 05:20 Ferritin 45 ng/mL (26-388) 09/14/18 05:20 Total Bilirubin 0.20 mg/dL (0.2-1.0) 09/22/18 04:26 AST 44 Units/L (15-37) H 09/22/18 04:26 ALT 72 Units/L (12-78) 09/22/18 04:26 Alkaline Phosphatase 63 Units/L (46-116) 09/22/18 04:26 Total Protein 5.8 g/dL (6.4-8.2) L 09/22/18 04:26 Albumin 2.3 g/dL (3.4-5.0) L 09/22/18 04:26 Globulin 3.5 g/dL (2.5-4.5) 09/22/18 04:26 Albumin/Globulin Ratio 0.7 Ratio (1.1-2.1) L 09/22/18 04:26 Total PSA 9.14 ng/mL (0.13-4.0) H 09/14/18 05:20 Vitamin B12 901 pg/mL (193-986) 09/14/18 05:20 Folate 7.8 ng/mL (>8.6) L 09/14/18 05:20 Specimen Type Catherized urine 09/21/18 01:27 Urine Color Pale yellow (YELLOW) 09/21/18 01:27 Urine Appearance Clear (CLEAR) 09/21/18 01:27 Urine pH 8.0 (5.0 - 8.0) 09/21/18 01:27 Ur Specific [place] 1.010 (1.000-1.030) 09/21/18 01:27 Urine Protein 3+ (NEGATIVE) 09/21/18 01:27 Urine Glucose (UA) Negative (NEGATIVE) 09/21/18 01:27 Urine Ketones Negative (NEGATIVE) 09/21/18 01:27 Urine Occult Blood 5+ (NEGATIVE) 09/21/18 01:27 Urine Nitrite Negative (NEGATIVE) 09/21/18 01:27 Urine Bilirubin Negative (NEGATIVE) 09/21/18 01:27 Urine Urobilinogen Normal (NORMAL) 09/21/18 01:27 Ur Leukocyte Esterase Negative (NEGATIVE) 09/21/18 01:27 Urine RBC 30-50 /HPF (NONE SEEN) 09/21/18 01:27 Urine WBC None seen /HPF (NONE SEEN) 09/21/18 01:27 Ur Squamous Epith Cells Rare /HPF (NEGATIVE) 09/21/18 01:27 Amorphous Sediment 2+ /HPF (NEGATIVE) 09/10/18 10:28 Urine Bacteria Negative /HPF (NEGATIVE) 09/21/18 01:27 Urine Mucus Few /HPF (NEGATIVE) 09/10/18 10:28 Ur Culture Indicated? No/not indicated 09/21/18 01:27 Fluid Source Synovial 09/16/18 09:38 Fluid Crystals None seen (None Seen) 09/16/18 09:38 Synovial WBC 12861 Cubic/mm (0-150) H 09/16/18 09:38 Synovial Uric Acid Cancelled 09/16/18 09:38 Stool Description 30g firm,mucoid grn 09/16/18 09:12 Stl Occult Blood (IFOB) Positive (NEGATIVE) A 09/16/18 09:12 Cytology Specimen To follow 09/16/18 09:38 Miscellaneous Test See comment 09/16/18 09:50 - Plan (1) Hypertensive urgency Status: Acute Plan: MONITORING BP AND BLOOD SUGAR CONTROL,. AM LABS AND CXR. BP CONTROL, SUPPLEMENTAL O2. STRICT I & OS (2) Pneumonia Status: Resolved Qualifiers: Pneumonia type: due to unspecified organism Laterality: right Lung location: lower lobe of lung Qualified Code(s): J18.1 - Lobar pneumonia, unspecified organism Plan: IV ATBX, RESP THERAPY. SUPPLEMENTAL O2 (3) Hypoglycemia Status: Acute (4) Chronic kidney disease (CKD) Status: Chronic (5) CHF (congestive heart failure) Status: Chronic Qualifiers: Qualified Code(s): I50.23 - Acute on chronic systolic (congestive) heart failure (6) Hypertension Status: Chronic Qualifiers: Hypertension type: unspecified Qualified Code(s): I10 - Essential (primary) hypertension (7) Diabetes mellitus Status: Chronic Qualifiers: Diabetes mellitus type: type 2 Diabetes mellitus fci insulin use: with intermediate manager use Diabetes mellitus complication status: without complication Qualified Code(s): E11.9 - Type 2 diabetes mellitus without complications; Z79.4 - snf (current) use of insulin; Z79.4 - snf (current) use of insulin; Z79.4 - snf (current) use of insulin; Z79.4 - snf (current) use of insulin (8) Hyperlipidemia Status: Chronic Qualifiers: Hyperlipidemia type: mixed hyperlipidemia Qualified Code(s): E78.2 - Mixed hyperlipidemia (9) Coronary artery disease Status: Chronic (10) GERD (gastroesophageal reflux disease) Status: Chronic Qualifiers: Esophagitis presence: esophagitis presence not specified Qualified Code(s): K21.9 - Gastro-esophageal reflux disease without esophagitis (11) BPH (benign prostatic hyperplasia) Status: Acute Plan: TALBOT CATH, FLOMAX. APPT WITH DR IZAGUIRRE UROLOGIST (12) Osteoarth NOS-l/leg Status: Acute Plan: RIGHT KNEE, OUTPT ORTHO. PAIN CONTROL. S/P SOLU MEDROL AND JOINT ASPIRATION
[2018-09-22] MEDS: LIPITOR TAB 40 MG PO SCH (21:38)
[2018-09-22] MEDS: ZANTAC PO SCH (21:39)
[2018-09-22] MEDS: SNACK - Diabetic Appropriate PO SCH (22:34)
[2018-09-23] MEDS: APRESOLINE TAB 25 MG PO SCH ×3 (05:07→21:22)
[2018-09-23 06:44] LABS: BASOPHILS % (AUTO) 0.7 % (0.2-1.0); EOSINOPHILS # (AUTO) 0.2 x10^3/uL (0.0-0.2); EOSINOPHILS % (AUTO) 3.5 % (0.9-2.9); HEMATOCRIT 23.1 % (42.0-54.0); HEMOGLOBIN 7.7 g/dL (13.5-18.0); LYMPHOCYTES % (AUTO) 13.9 % (21.0-51.0); MEAN CORPUSCULAR HEMOGLOBIN 29.8 pg (27.0-34.0); MEAN CORPUSCULAR HGB CONC 33.5 g/dL (33.0-35.0); MEAN CORPUSCULAR VOLUME 88.8 fL (80.0-100.0); MEAN PLATELET VOLUME 8.5 fL (7.4-11.0); MONOCYTES # (AUTO) 0.5 x10^3/uL (0.3-0.8); MONOCYTES % (AUTO) 7.1 % (0.0-13.0); NEUTROPHILS # (AUTO) 5.2 x10^3/uL (2.2-4.8); NEUTROPHILS % (AUTO) 74.8 % (42.0-75.0); PLATELET COUNT 220 X10^3/uL (150.0-450.0); RED CELL DISTRIBUTION WIDTH 16.8 % (11.6-16.5)
[2018-09-23 07:09] LABS: ALANINE AMINOTRANSFERASE 83 Units/L (12-78); ALBUMIN 2.2 g/dL (3.4-5.0); ALKALINE PHOSPHATASE 58 Units/L (46-116); ASPARTATE AMINO TRANSFERASE 39 Units/L (15-37); BLOOD UREA NITROGEN 33 mg/dL (7-18); CALCIUM 9.1 mg/dL (8.5-10.1); CARBON DIOXIDE 26.6 mmol/L (21-32); CHLORIDE 106 mmol/L (98-107); COR CA(FOR HYPOALB) 10.5 mg/dL (8.5-10.1); CREATININE 1.91 mg/dL (0.70-1.30); SODIUM 140 mmol/L (136-145); TOTAL PROTEIN 5.5 g/dL (6.4-8.2); eGFR NON BLACK RACES 36 (>60)
[2018-09-23 07:22] LABS: ANISOCYTOSIS SLIGHT; HYPOCHROMASIA 1+; PLATELET MORPHOLOGY COMMENT NORMAL (NORMAL)
[2018-09-23] MEDS: DUONEB 0.5 MG/3 MG NEB PRN ×2 (08:51→21:07)
[2018-09-23] MEDS: PULMICORT NEB TX 0.5 MG NEB SCH ×2 (08:51→21:07)
[2018-09-23] MEDS ORDERED: LASIX IVP ONE ×2 (09:18→21:59)
[2018-09-23] MEDS: LOVENOX INJ 30 MG SYR SC SCH (09:27)
[2018-09-23] MEDS: VIBRAMYCIN 100 MG in NS 100 ML IV + SPIKE MINIBAG* 100 ML IV SCH ×2 (09:28→22:02)
[2018-09-23] MEDS: PROCARDIA XL PO SCH (09:29)
[2018-09-23] MEDS: PROSCAR PO SCH (09:29)
[2018-09-23] MEDS: ULTRAM PO SCH ×2 (09:30→21:21)
[2018-09-23] MEDS: COREG TAB 12.5 MG PO SCH ×2 (09:35→21:20)
[2018-09-23] MEDS: ALDACTONE TAB 25 MG PO SCH (09:35)
[2018-09-23] MEDS: HEMOCYTE-PLUS PO SCH (09:35)
[2018-09-23] MEDS: ROBITUSSIN DM PO SCH ×4 (09:39→21:21)
[2018-09-23] MEDS: FLOMAX PO SCH (09:39)
[2018-09-23] MEDS: PLAVIX PO SCH (09:39)
[2018-09-23] MEDS: PROTONIX INJ 40 MG VIAL IVP SCH (09:39)
[2018-09-23] MEDS: CHECK PATCH XX SCH ×2 (10:00→21:10)
[2018-09-23] MEDS ORDERED: NS 250 ML IV 250 ML IV ONE ×2 (17:32→17:36)
[2018-09-23] MEDS: SNACK - Diabetic Appropriate PO SCH (20:45)
[2018-09-23] MEDS: LIPITOR TAB 40 MG PO SCH (21:21)
[2018-09-23] MEDS: ZANTAC PO SCH (21:22)
[2018-09-24] MEDS ORDERED: NS 1/2 1000 ML IV 1,000 ML IV ONE (04:17)
[2018-09-24] MEDS: NS 1/2 1000 ML IV 1,000 ML IV PRN (04:32)
[2018-09-24 05:38] LABS: BASOPHILS % (AUTO) 0.7 % (0.2-1.0); EOSINOPHILS # (AUTO) 0.2 x10^3/uL (0.0-0.2); EOSINOPHILS % (AUTO) 3.5 % (0.9-2.9); HEMATOCRIT 25.7 % (42.0-54.0); HEMOGLOBIN 8.7 g/dL (13.5-18.0); LYMPHOCYTES # (AUTO) 1.1 X10^3/uL (1.3-2.9); LYMPHOCYTES % (AUTO) 16.6 % (21.0-51.0); MEAN CORPUSCULAR HEMOGLOBIN 29.6 pg (27.0-34.0); MEAN CORPUSCULAR HGB CONC 33.9 g/dL (33.0-35.0); MEAN CORPUSCULAR VOLUME 87.1 fL (80.0-100.0); MEAN PLATELET VOLUME 8.4 fL (7.4-11.0); MONOCYTES # (AUTO) 0.5 x10^3/uL (0.3-0.8); MONOCYTES % (AUTO) 7.4 % (0.0-13.0); NEUTROPHILS # (AUTO) 4.8 x10^3/uL (2.2-4.8); NEUTROPHILS % (AUTO) 71.8 % (42.0-75.0); PLATELET COUNT 214 X10^3/uL (150.0-450.0); RED BLOOD COUNT 2.95 X10^6/uL (4.7-6.0); RED CELL DISTRIBUTION WIDTH 17.3 % (11.6-16.5); WHITE BLOOD COUNT 6.7 X10^3/uL (3.6-10.0)
[2018-09-24 05:47] LABS: ALANINE AMINOTRANSFERASE 74 Units/L (12-78); ALBUMIN 2.2 g/dL (3.4-5.0); ALKALINE PHOSPHATASE 56 Units/L (46-116); ASPARTATE AMINO TRANSFERASE 33 Units/L (15-37); BLOOD UREA NITROGEN 26 mg/dL (7-18); CALCIUM 9.2 mg/dL (8.5-10.1); CARBON DIOXIDE 25.3 mmol/L (21-32); CHLORIDE 105 mmol/L (98-107); COR CA(FOR HYPOALB) 10.6 mg/dL (8.5-10.1); CREATININE 1.86 mg/dL (0.70-1.30); SODIUM 140 mmol/L (136-145); TOTAL PROTEIN 5.4 g/dL (6.4-8.2); eGFR NON BLACK RACES 37 (>60)
[2018-09-24] MEDS: PULMICORT NEB TX 0.5 MG NEB SCH (09:11)
[2018-09-24] MEDS: ROBITUSSIN DM PO SCH ×3 (09:29→16:52)
[2018-09-24] MEDS: VIBRAMYCIN 100 MG in NS 100 ML IV + SPIKE MINIBAG* 100 ML IV SCH (09:29)
[2018-09-24] MEDS: PROSCAR PO SCH (09:30)
[2018-09-24] MEDS: PROTONIX INJ 40 MG VIAL IVP SCH (09:30)
[2018-09-24] MEDS: HEMOCYTE-PLUS PO SCH (09:30)
[2018-09-24] MEDS: PLAVIX PO SCH (09:31)
[2018-09-24] MEDS: FLOMAX PO SCH (09:31)
[2018-09-24] MEDS: ULTRAM PO SCH (09:31)
[2018-09-24] MEDS: COREG TAB 12.5 MG PO SCH (09:32)
[2018-09-24] MEDS: ALDACTONE TAB 25 MG PO SCH (09:32)
[2018-09-24] MEDS: APRESOLINE TAB 25 MG PO SCH ×2 (09:32→14:57)
[2018-09-24] MEDS: PROCARDIA XL PO SCH (09:32)
[2018-09-24] MEDS: LOVENOX INJ 30 MG SYR SC SCH (10:00)
[2018-09-24] MEDS: CHECK PATCH XX SCH (12:56)
[2018-09-24] MEDS: HumuLIN R SUBCUT PRN (16:41)
[2018-09-24 16:55] VITALS: BP 168/73
== END 2018-09-24 17:00 | DRG 304 ==
LOC: ER 11:09 → ICU 13:25 → MED/SURG 09-17 19:21
PROVIDERS: ADMIT Internal Medicine; ATTEND Internal Medicine
DX: I50.23 Acute on chronic systolic (congestive) heart failure; M25.461 Effusion, right knee; J69.8 Pneumonitis due to inhalation of other solids and liquids; F01.50 Vascular dementia, unspecified severity, without behavioral disturbance, psychotic disturbance, mood disturbance, and anxiety; R62.7 Adult failure to thrive; N40.1 Benign prostatic hyperplasia with lower urinary tract symptoms; R94.31 Abnormal electrocardiogram [ECG] [EKG]; R41.82 Altered mental status, unspecified; I25.10 Atherosclerotic heart disease of native coronary artery without angina pectoris; Z79.4 Long term (current) use of insulin; N28.9 Disorder of kidney and ureter, unspecified; E78.2 Mixed hyperlipidemia; M17.11 Unilateral primary osteoarthritis, right knee; L21.9 Seborrheic dermatitis, unspecified; I16.0 Hypertensive urgency; Z85.46 Personal history of malignant neoplasm of prostate; E11.649 Type 2 diabetes mellitus with hypoglycemia without coma; I12.9 Hypertensive chronic kidney disease with stage 1 through stage 4 chronic kidney disease, or unspecified chronic kidney disease
CPT/HCPCS: 36415; 36430; 36600; 71010; 71045; 71250; 73700; 74000; 74018; 76770; 80053; 81001; 82270; 82607; 82728; 82746; 82803; 82947; 83036; 83540; 83735; 84153; 84466; 84560; 85025; 86850; 86900; 86901; 86922; 87040; 87070; 87075; 87205; 88112; 89051; 89060; 93005; 93306; 94640; 96365; 96367; 96374; 96375; 97110; 97116; 97162; 97166; 97530; 97535; 99284; 99285; A4222; C9113; P9016; S0138; J0360; J0696; J1650; J1750; J1756; J1815; J1940; J2920; J3490; J7030; J7040; J7050; J7620; J7626; S5010

== ENCOUNTER 2018-10-23 07:50 | Observation (INO) ==
[2018-10-23 08:03] VITALS: BMI 27.1
[2018-10-23] MEDS ORDERED: CATAPRES TAB 0.2 MG ONE (08:09)
[2018-10-23] MEDS ORDERED: CATAPRES TAB 0.2 MG PO ONE (08:09)
[2018-10-23 08:29] LABS: BASOPHILS % (AUTO) 0.6 % (0.2-1.0); EOSINOPHILS # (AUTO) 0.1 x10^3/uL (0.0-0.2); EOSINOPHILS % (AUTO) 2.3 % (0.9-2.9); HEMATOCRIT 28.1 % (42.0-54.0); HEMOGLOBIN 9.4 g/dL (13.5-18.0); LYMPHOCYTES # (AUTO) 0.7 X10^3/uL (1.3-2.9); LYMPHOCYTES % (AUTO) 13.3 % (21.0-51.0); MEAN CORPUSCULAR HEMOGLOBIN 30.3 pg (27.0-34.0); MEAN CORPUSCULAR HGB CONC 33.4 g/dL (33.0-35.0); MEAN CORPUSCULAR VOLUME 90.6 fL (80.0-100.0); MONOCYTES # (AUTO) 0.5 x10^3/uL (0.3-0.8); MONOCYTES % (AUTO) 8.1 % (0.0-13.0); NEUTROPHILS # (AUTO) 4.2 x10^3/uL (2.2-4.8); NEUTROPHILS % (AUTO) 75.7 % (42.0-75.0); PLATELET COUNT 153 X10^3/uL (150.0-450.0); RED CELL DISTRIBUTION WIDTH 19.6 % (11.6-16.5); WHITE BLOOD COUNT 5.6 X10^3/uL (3.6-10.0)
--- NOTE | 2018-10-23 08:33 | DR.EXTPAIN ---
HPI Time seen Time Seen by Provider: 10/23/18 08:26 PCP Primary Care Physician: SAMANTA KEEN Complaint/Symptoms Chief Complaint Doctor Comments: Pt. is a poor historian. Basically brought in by EMS for SOB. He states "they came to get me so that I can give blood here." He otherwise has no complains. 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 A POOR HISTORIAN ,, 02 2 LPM INFUSING AND LUNGS CLEAR BILATERALLY NO DISTRESS NOTED , Source History Provided: Patient and EMS Mode of arrival Mode of Arrival: Stretcher Timing Onset of Chief Complaint: 10/23/18 PMH PMH Past Medical History: Yes Past Medical History: Arthritis, COPD, Coronary Artery Disease, Diabetes, Dyslipidemia, GERD and Hypertension Past Surgical History: Yes Surgical History: CABG/Valve Surgery Family History History of Family Medical Conditions: Yes Family Medical History: Diabetes Mellitus, Cancer and Coronary Artery Disease Social History Does patient currently use any type of tobacco product: No Have you used tobacco products in the last 12 months: No Type of Tobacco Use: None Does any household member use tobacco: No Alcohol Use: None Do you use any recreational Drugs:: No Lives With: Spouse and Family Lives Where: Home infectious screening In the last 2 months have you had wt loss of >10#?: NO Have you had fever, night sweats or hemotysis?: No Have you traveled outside the country in the last 6 months?: No Isolation: Standard ROS Review of Systems Constitutional: No Symptoms Reported Eyes: No Symptoms Reported ENTM: No Symptoms Reported Respiratoy: Short of Breath Cardiovascular: No Symptoms Reported Gastrointestinal/Abdominal: No Symptoms Reported Genitourinary: No Symptoms Reported Neurological: No Symptoms Reported Musculoskeletal: No Symptoms Reported Integumentary: No Symptoms Reported Hematologic/Lymphatic: No Symptoms Reported Endocrine: No Symptoms Reported Psychiatric: No Symptoms Reported All Other Systems: Reviewed and Negative PE Vital Signs Vitals: Temperature 98.1 F Pulse Rate [Right Brachial] 64 Pulse Rate 68 Respiratory Rate 20 Blood Pressure [Right Arm] 192/90 Blood Pressure [Left Arm] 194/85 Blood Pressure 194/85 O2 Sat by Pulse Oximetry 99 General Limitations: No Limitations General Appearance: Alert and In No Apparent Distress Head Head Exam: Normal Inspection, Atraumatic and Normocephalic Eyes Eye exam: Normal Appearance, PERRL and EOMI ENT ENT Exam: Normal Exam, Normal Oropharynx and Mucous Membranes Moist Neck Neck Exam: Normal Inspection, Full ROM and Trachea Midline Chest Chest Inspection: Normal Inspection and Symmetric Chest Wall Rise Respiratory Respiratory Exam: Normal Lung Sounds Bilat Cardiovascular Cardiovascular Exam: Regular Rate, Normal Rhythm, +S1 and +S2 Abdominal Exam Abdominal Exam: Normal Inspection, Normal Bowel Sounds and Soft Extremities Extremities Exam: Normal Inspection Back Back Exam: Normal Inspection Neurological Neurological Exam: Alert and Other (He is oriented to self) Psychiatric Psychiatric Exam: Normal Affect and Normal Mood Skin Skin Exam: Warm, Dry, Intact and Normal Color COURSE Reevaluation 1st: Improved Education/Counseling Education/Counseling: Patient, Family, Education and Counseling Educated On: Treatment, Diagnosis, Prognosis and Needs for Follow Up ROR Labs Reviewed Laboratory Results Reviewed?: Yes Result Diagrams: 10/23/18 08:21 10/23/18 08:21 Laboratory: WBC 5.6 X10^3/uL (3.6-10.0) 10/23/18 08:21 RBC 3.10 X10^6/uL (4.7-6.0) L 10/23/18 08:21 Hgb 9.4 g/dL (13.5-18.0) L 10/23/18 08:21 Hct 28.1 % (42.0-54.0) L 10/23/18 08:21 MCV 90.6 fL (80.0-100.0) 10/23/18 08:21 MCH 30.3 pg (27.0-34.0) 10/23/18 08:21 MCHC 33.4 g/dL (33.0-35.0) 10/23/18 08:21 RDW 19.6 % (11.6-16.5) H 10/23/18 08:21 Plt Count 153 X10^3/uL (150.0-450.0) 10/23/18 08:21 MPV 8.0 fL (7.4-11.0) 10/23/18 08:21 Neut % (Auto) 75.7 % (42.0-75.0) H 10/23/18 08:21 Lymph % (Auto) 13.3 % (21.0-51.0) L 10/23/18 08:21 [place] % (Auto) 8.1 % (0.0-13.0) 10/23/18 08:21 Eos % (Auto) 2.3 % (0.9-2.9) 10/23/18 08:21 Baso % (Auto) 0.6 % (0.2-1.0) 10/23/18 08:21 Neut # (Auto) 4.2 x10^3/uL (2.2-4.8) 10/23/18 08:21 Lymph # (Auto) 0.7 X10^3/uL (1.3-2.9) L 10/23/18 08:21 [place] # (Auto) 0.5 x10^3/uL (0.3-0.8) 10/23/18 08:21 Eos # (Auto) 0.1 x10^3/uL (0.0-0.2) 10/23/18 08:21 Baso # (Auto) 0.0 X10^3/uL (0.0-0.1) 10/23/18 08:21 Absolute Nucleated RBC 0.0 /100WBC 10/23/18 08:21 INR Target Range - 10/23/18 08:21 INR 1.09 (0.8-1.3) 10/23/18 08:21 APTT 29.4 SECONDS (22.9-36.5) 10/23/18 08:21 PTT Comment - 10/23/18 08:21 D-Dimer 635 ng/mL (0-400) H* 10/23/18 08:21 Sodium 145 mmol/L (136-145) 10/23/18 08:21 Corrected Sodium TNP 10/23/18 08:21 Potassium 3.9 mmol/L (3.5-5.1) 10/23/18 08:21 Chloride 110 mmol/L (98-107) H 10/23/18 08:21 Carbon Dioxide 28.3 mmol/L (21-32) 10/23/18 08:21 BUN 20 mg/dL (7-18) H 10/23/18 08:21 Creatinine 1.99 mg/dL (0.70-1.30) H 10/23/18 08:21 Est GFR (MDRD) Af Amer 41 (>60) L 10/23/18 08:21 Est GFR (MDRD) Non-Af 34 (>60) L 10/23/18 08:21 Glucose 93 mg/dL (65-99) 10/23/18 08:21 Calcium 9.0 mg/dL (8.5-10.1) 10/23/18 08:21 Corrected Calcium 10.0 mg/dL (8.5-10.1) 10/23/18 08:21 Magnesium 2.0 mg/dL (1.7-2.9) 10/23/18 08:21 Total Bilirubin 0.30 mg/dL (0.2-1.0) 10/23/18 08:21 AST 31 Units/L (15-37) 10/23/18 08:21 ALT 57 Units/L (12-78) 10/23/18 08:21 Alkaline Phosphatase 61 Units/L (46-116) 10/23/18 08:21 Creatine Kinase 121 Units/L (39-308) 10/23/18 14:29 CK-MB (CK-2) 2.4 ng/mL (0-4.0) 10/23/18 14:29 CK/CKMB % Calc 2.0 % (<4) 10/23/18 14:29 Troponin I 0.09 ng/mL (0-1.5) 10/23/18 14:29 B-Natriuretic Peptide 1370 pg/mL (0-79) H* 10/23/18 08:21 Total Protein 5.9 g/dL (6.4-8.2) L 10/23/18 08:21 Albumin 2.7 g/dL (3.4-5.0) L 10/23/18 08:21 Globulin 3.2 g/dL (2.5-4.5) 10/23/18 08:21 Albumin/Globulin Ratio 0.8 Ratio (1.1-2.1) L 10/23/18 08:21 Specimen Type Clean catch urine 10/23/18 16:55 Urine Color Yellow (YELLOW) 10/23/18 16:55 Urine Appearance Clear (CLEAR) 10/23/18 16:55 Urine pH 6.0 (5.0 - 8.0) 10/23/18 16:55 Ur Specific [place] 1.010 (1.000-1.030) 10/23/18 16:55 Urine Protein 3+ (NEGATIVE) 10/23/18 16:55 Urine Glucose (UA) Negative (NEGATIVE) 10/23/18 16:55 Urine Ketones Negative (NEGATIVE) 10/23/18 16:55 Urine Occult Blood 1+ (NEGATIVE) 10/23/18 16:55 Urine Nitrite Negative (NEGATIVE) 10/23/18 16:55 Urine Bilirubin Negative (NEGATIVE) 10/23/18 16:55 Urine Urobilinogen Normal (NORMAL) 10/23/18 16:55 Ur Leukocyte Esterase Negative (NEGATIVE) 10/23/18 16:55 Urine RBC 3-5 /HPF (NONE SEEN) 10/23/18 16:55 Urine WBC 0-2 /HPF (NONE SEEN) 10/23/18 16:55 Ur Squamous Epith Cells Rare /HPF (NEGATIVE) 10/23/18 16:55 Urine Bacteria Trace /HPF (NEGATIVE) 10/23/18 16:55 Urine Mucus Few /HPF (NEGATIVE) 10/23/18 16:55 Ur Culture Indicated? No/not indicated 10/23/18 16:55 XRAY XRAY Interpreted by: Radiologist XRAY Findings: CXR: Cardiomegaly w/o CHF. Hyperinflated lungs. no infiltrates. EKG Rate: 70 [place]: Normal Rhythm: NSR and PVCs Block: RBBB Hypertrophy: LVH Diagnosis Discharge Problem: Hypertension, uncontrolled, D-dimer, elevated Dyspnea Qualifiers: Dyspnea type: shortness of breath Qualified Code(s): R06.02 - Shortness of breath
--- NOTE | 2018-10-23 08:37 | RAD ---
HISTORY: Shortness of breath Study: Chest AP portable Comparison: 09/21/2018 Findings: The patient is status post median sternotomy and CABG. The heart remains enlarged. The aorta is calcified. No definite congestive heart failure is identified. The lungs are hyperinflated. No acute alveolar infiltrates are identified. No pleural effusions are present. Mild interstitial lung changes are present The bony thorax is unremarkable. IMPRESSION: Continued cardiomegaly without congestive heart failure Lungs hyperinflated but free of acute infiltrates. Reported By:
[2018-10-23 08:41] LABS: ALANINE AMINOTRANSFERASE 57 Units/L (12-78); ALBUMIN 2.7 g/dL (3.4-5.0); ALKALINE PHOSPHATASE 61 Units/L (46-116); ASPARTATE AMINO TRANSFERASE 31 Units/L (15-37); BLOOD UREA NITROGEN 20 mg/dL (7-18); CARBON DIOXIDE 28.3 mmol/L (21-32); CHLORIDE 110 mmol/L (98-107); CREATININE 1.99 mg/dL (0.70-1.30); SODIUM 145 mmol/L (136-145); TOTAL PROTEIN 5.9 g/dL (6.4-8.2); eGFR NON BLACK RACES 34 (>60)
[2018-10-23 08:56] LABS: B-TYPE NATRIURETIC PEPTIDE 1370 pg/mL (0-79)
[2018-10-23] MEDS ORDERED: DUONEB 0.5 MG/3 MG NEB ONE (09:03)
[2018-10-23] MEDS ORDERED: DUONEB 0.5 MG/3 MG ONE (09:30)
[2018-10-23] MEDS ORDERED: LASIX IVP ONE ×2 (09:44→10:39)
[2018-10-23] MEDS ORDERED: PROTONIX TAB 40 MG PO ONE (11:38)
[2018-10-23] MEDS ORDERED: FLOMAX PO ONE (11:41)
[2018-10-23] MEDS ORDERED: COREG TAB 12.5 MG PO ONE (11:45)
[2018-10-23] MEDS ORDERED: APRESOLINE TAB 25 MG PO ONE (11:46)
[2018-10-23] MEDS ORDERED: PLAVIX PO ONE (11:46)
[2018-10-23 12:54] LABS: CREATINE KINASE MB 2.9 ng/mL (0-4.0); TROPONIN I 0.08 ng/mL (0-1.5)
[2018-10-23] MEDS: LOVENOX INJ 30 MG SYR SC SCH (14:50)
[2018-10-23 15:12] LABS: CREATINE KINASE MB 2.4 ng/mL (0-4.0); TROPONIN I 0.09 ng/mL (0-1.5)
[2018-10-23 17:09] LABS: BILIRUBIN,URINE NEGATIVE (NEGATIVE); BLOOD/HEMOGLOBIN,URINE 1+ (NEGATIVE); GLUCOSE, URINE NEGATIVE (NEGATIVE); KETONES,URINE NEGATIVE (NEGATIVE); LEUKOCYTE ESTERASE ,URINE NEGATIVE (NEGATIVE); NITRITES,URINE NEGATIVE (NEGATIVE); PROTEIN,URINE 3+ (NEGATIVE); UROBILINOGEN,URINE NORMAL (NORMAL)
[2018-10-23 17:10] LABS: APPEARANCE,URINE CLEAR (CLEAR); COLOR,URINE YELLOW (YELLOW)
[2018-10-23 17:20] LABS: BACTERIA,URINE TRACE /HPF (NEGATIVE); MUCUS,URINE FEW /HPF (NEGATIVE); SQUAMOUS EPITHELIAL CELL,UR RARE /HPF (NEGATIVE)
--- NOTE | 2018-10-23 18:23 | DR.H&P ---
H&P - History & Physical for Day of: H&P Date: 10/23/18 - Chief Complaint Chief Complaint: AMS, SOB - History of Present Illness History of Present Illness: 83 BM ER ADMISSION AFTER PRESENTING WITH FAMILY STATING PT HAD NEW ONSET OF WHEEZING AND INCREASED CONFUSION. PT HAS PMH OF CAD, CHF, OA, CRF, HTN. PT WAS SEEN EARLIER IN THE WEEK AND PCP WITHOUT RESP SYMPTOMS. PT HYPERTENSIVE IN ER. PT ADMITTED FOR TREATMENT OF ACUTE RESP ILLNESS, CHF AND CONFUSION. - Past Medical History Past Medical History: Coronary Artery Disease, Hypertension, Dyslipidemia, Diabetes, COPD, GERD, Arthritis Additional Medical History: Prostate Cancer, Bronchitis, Constipation - Past Surgical History Surgical History: CABG/Valve Surgery - Family History Family Medical History: Diabetes Mellitus, Cancer, Coronary Artery Disease - Social History Does patient currently use any type of tobacco product: No Have you used tobacco products in the last 12 months: No Type of Tobacco Use: None Does any household member use tobacco: No Alcohol Use: None Drug Use: None - Medications Home Medications: ketorolac [From Toradol] Allergy (Verified 10/23/18 07:52) lisinopril Allergy (Verified 10/23/18 07:52) CONTINUE taking the following medications clopidogrel [Plavix] 75 mg PO DAILY 10/23/18 [History] ferrous sulfate [iron] 325 mg PO DAILY 10/23/18 [History] pantoprazole 40 mg PO QDAY 10/23/18 [History] spironolactone 25 mg PO DAILY 10/23/18 [History] tamsulosin 0.4 mg PO DAILY 10/23/18 [History] - Review of Systems Constitutional: Weakness Eyes: No Symptoms Reported ENT: No Symptoms Reported Respiratory: Shortness of Breath, Wheezing Cardiovascular: denies: Chest Pain, Edema Gastrointestinal: No Symptoms Reported Genitourinary: No Symptoms Reported Musculoskeletal: Leg Pain Skin: No Symptoms Reported Neurological: Weakness, Confusion - Physical Exam Vital Signs: Temperature 98.1 F Pulse Rate [Right Brachial] 64 Pulse Rate 68 Respiratory Rate 20 Blood Pressure [Right Arm] 192/90 Blood Pressure [Left Arm] 194/85 Blood Pressure 194/85 O2 Sat by Pulse Oximetry 99 Oriented: Person Eyes: Normal Ear: Normal Nose: Normal Throat: Normal Respiratory: Wheezes Throughout, RLL Diminished, LLL Diminished Cardiovascular: Normal, Murmur. negative: Edema : Normal Auscultation: Bowel Sounds: Normal Palpation: Normal Tenderness: Normal Skin: Normal Musculoskeletal: Right, Left, Knee, Back:Lumbar Mood Description: Calm Speech Pattern: Appropriate - Assessment/Plan (1) Dyspnea Qualifiers: Dyspnea type: shortness of breath Qualified Code(s): R06.02 - Shortness of breath; R06.00 - Dyspnea, unspecified; R06.01 - Orthopnea Status: Acute Plan: ADMIT, SERIAL CE AND EKG. CXR ON ADMISSION AND REPEAT Q AM. STRICT I & OS, MAY INSERT TALBOT CATH. BP AND LIPID CONTROL. BS CONTROL, SSI. VERIFY HOME MEDICATION, SUPPLEMENTAL O2, RESP THERAPY (2) Hypertension, uncontrolled Status: Acute (3) D-dimer, elevated Status: Acute (4) CHF (congestive heart failure) Qualifiers: Status: Chronic (5) Diabetes mellitus Qualifiers: Status: Chronic (6) Coronary artery disease Status: Chronic (7) GERD (gastroesophageal reflux disease) Qualifiers: Status: Chronic (8) Chronic kidney disease (CKD) Status: Chronic - Allergies Allergies/Adverse Reactions: Allergies Allergy/AdvReac Type Severity Reaction Status Date / Time ketorolac [From Toradol] Allergy Verified 10/23/18 07:52 lisinopril Allergy Verified 10/23/18 07:52
[2018-10-23] MEDS ORDERED: CATAPRES TAB 0.1 MG PO PRN (19:18)
[2018-10-23] MEDS ORDERED: APRESOLINE INJ 20 MG VIAL IVP PRN (19:21)
[2018-10-23 19:39] LABS: ABG BASE EXCESS 4.8 mmol/L (-2.0-2.0); ABG HCO3 28.1 mmol/L (22-26)
[2018-10-23 19:40] LABS: ABG ALLEN TEST POS
[2018-10-23 20:41] LABS: CKMB % 1.7 % (<4); CREATINE KINASE MB 1.8 ng/mL (0-4.0); TROPONIN I 0.08 ng/mL (0-1.5)
[2018-10-23] MEDS: ALDACTONE TAB 25 MG PO SCH (21:01)
[2018-10-23] MEDS: LIPITOR TAB 40 MG PO SCH (21:01)
[2018-10-23] MEDS: PROTONIX INJ 40 MG VIAL IVP SCH (21:01)
[2018-10-23] MEDS: PROSCAR PO SCH (21:02)
[2018-10-23] MEDS: COREG TAB 12.5 MG PO SCH (21:02)
[2018-10-23] MEDS: APRESOLINE TAB 25 MG PO SCH ×2 (21:02→23:00)
[2018-10-24] MEDS: APRESOLINE TAB 25 MG PO SCH ×3 (05:30→21:51)
[2018-10-24 06:49] LABS: BASOPHILS # (AUTO) 0.1 X10^3/uL (0.0-0.1); BASOPHILS % (AUTO) 1.2 % (0.2-1.0); EOSINOPHILS # (AUTO) 0.2 x10^3/uL (0.0-0.2); EOSINOPHILS % (AUTO) 3.8 % (0.9-2.9); HEMATOCRIT 29.9 % (42.0-54.0); LYMPHOCYTES % (AUTO) 19.4 % (21.0-51.0); MEAN CORPUSCULAR HEMOGLOBIN 30.5 pg (27.0-34.0); MEAN CORPUSCULAR HGB CONC 33.6 g/dL (33.0-35.0); MEAN CORPUSCULAR VOLUME 90.8 fL (80.0-100.0); MEAN PLATELET VOLUME 9.1 fL (7.4-11.0); MONOCYTES # (AUTO) 0.4 x10^3/uL (0.3-0.8); MONOCYTES % (AUTO) 8.3 % (0.0-13.0); NEUTROPHILS # (AUTO) 3.6 x10^3/uL (2.2-4.8); NEUTROPHILS % (AUTO) 67.3 % (42.0-75.0); PLATELET COUNT 161 X10^3/uL (150.0-450.0); RED CELL DISTRIBUTION WIDTH 19.3 % (11.6-16.5); WHITE BLOOD COUNT 5.3 X10^3/uL (3.6-10.0)
[2018-10-24 07:12] LABS: ALANINE AMINOTRANSFERASE 52 Units/L (12-78); ALBUMIN 2.6 g/dL (3.4-5.0); ALKALINE PHOSPHATASE 57 Units/L (46-116); ASPARTATE AMINO TRANSFERASE 25 Units/L (15-37); BLOOD UREA NITROGEN 21 mg/dL (7-18); CALCIUM 9.1 mg/dL (8.5-10.1); CARBON DIOXIDE 27.9 mmol/L (21-32); CHLORIDE 110 mmol/L (98-107); CKMB % 1.9 % (<4); COR CA(FOR HYPOALB) 10.2 mg/dL (8.5-10.1); CREATINE KINASE 118 Units/L (39-308); CREATINE KINASE MB 2.2 ng/mL (0-4.0); SODIUM 145 mmol/L (136-145); TOTAL PROTEIN 5.8 g/dL (6.4-8.2); TROPONIN I 0.08 ng/mL (0-1.5); eGFR NON BLACK RACES 32 (>60)
[2018-10-24] MEDS ORDERED: VOLTAREN 1 % GEL MULTI DOSE TUBE TOP PRN (07:58)
[2018-10-24] MEDS ORDERED: LOVENOX INJ 40 MG SYR SC SCH (09:00)
[2018-10-24] MEDS ORDERED: PROCARDIA XL PO SCH ×2 (09:00→21:00)
[2018-10-24] MEDS ORDERED: LASIX IVP SCH (09:00)
[2018-10-24] MEDS: FERROUS GLUCONATE PO SCH (09:12)
[2018-10-24] MEDS: LOVENOX INJ 30 MG SYR SC SCH (09:12)
[2018-10-24] MEDS: PLAVIX PO SCH (09:12)
[2018-10-24] MEDS: PROTONIX INJ 40 MG VIAL IVP SCH (09:12)
[2018-10-24] MEDS: COREG TAB 12.5 MG PO SCH ×2 (09:13→20:54)
[2018-10-24] MEDS: ALDACTONE TAB 25 MG PO SCH (09:13)
[2018-10-24] MEDS: LIPITOR TAB 40 MG PO SCH (09:13)
[2018-10-24] MEDS: PROSCAR PO SCH (09:13)
[2018-10-24] MEDS: FLOMAX PO SCH (09:13)
[2018-10-24] MEDS ORDERED: NS 1/2 1000 ML IV 1,000 ML IV ONE ×2 (09:15→21:34)
[2018-10-24] MEDS: NS 1/2 1000 ML IV 1,000 ML IV SCH ×2 (09:16→21:53)
[2018-10-24] MEDS ORDERED: PROCARDIA XL PO ONE (11:43)
[2018-10-24 14:19] LABS: ABG BASE EXCESS 4.8 mmol/L (-2.0-2.0); ABG HCO3 28.1 mmol/L (22-26)
[2018-10-24] MEDS ORDERED: XOPENEX 1.25 MG/3 ML NEBULE NEB PRN (21:00)
[2018-10-24] MEDS: SOLU-Medrol 125 MG VIAL IVP SCH (21:52)
[2018-10-24] MEDS: CATAPRES TAB 0.1 MG PO SCH (21:52)
[2018-10-24] MEDS: ROCEPHIN VIAL 1 GRAM IVP SCH (21:53)
[2018-10-24] MEDS ORDERED: NS 1000 ML 1,000 ML IV SCH (22:00)
[2018-10-25] MEDS: Atrovent NEB TX 0.02% NEB SCH ×4 (00:25→17:01)
[2018-10-25] MEDS: XOPENEX 1.25 MG/3 ML NEBULE NEB SCH ×4 (00:25→17:01)
[2018-10-25 05:32] LABS: BASOPHILS % (AUTO) 0.4 % (0.2-1.0); HEMATOCRIT 31.5 % (42.0-54.0); HEMOGLOBIN 10.5 g/dL (13.5-18.0); LYMPHOCYTES # (AUTO) 0.3 X10^3/uL (1.3-2.9); MEAN CORPUSCULAR HEMOGLOBIN 30.5 pg (27.0-34.0); MEAN CORPUSCULAR HGB CONC 33.3 g/dL (33.0-35.0); MEAN CORPUSCULAR VOLUME 91.6 fL (80.0-100.0); MEAN PLATELET VOLUME 8.8 fL (7.4-11.0); MONOCYTES # (AUTO) 0.1 x10^3/uL (0.3-0.8); MONOCYTES % (AUTO) 1.6 % (0.0-13.0); NEUTROPHILS # (AUTO) 4.4 x10^3/uL (2.2-4.8); PLATELET COUNT 163 X10^3/uL (150.0-450.0); RED BLOOD COUNT 3.43 X10^6/uL (4.7-6.0); RED CELL DISTRIBUTION WIDTH 19.1 % (11.6-16.5); WHITE BLOOD COUNT 4.8 X10^3/uL (3.6-10.0)
[2018-10-25] MEDS: NS 1000 ML 1,000 ML IV SCH (05:38)
[2018-10-25 05:44] LABS: ALBUMIN 2.8 g/dL (3.4-5.0); CALCIUM 9.1 mg/dL (8.5-10.1); CARBON DIOXIDE 27.2 mmol/L (21-32); COR CA(FOR HYPOALB) 10.1 mg/dL (8.5-10.1); CREATININE 2.11 mg/dL (0.70-1.30); TOTAL PROTEIN 6.2 g/dL (6.4-8.2)
--- NOTE | 2018-10-25 05:46 | RAD ---
Examination: Portable AP chest History: CHF COPD Comparison 10/23/2018 Findings: Continued cardiomegaly with sternal wires. The central pulmonary vessels are congested. There is no evidence for developing consolidation, horacio pulmonary edema or large pleural effusion. Impression: Stable cardiac enlargement with postsurgical findings. No new abnormality since prior study. Reported By:
[2018-10-25 06:13] LABS: BAND NEUTROPHILS % 1 % (0-10); PLATELET MORPHOLOGY COMMENT NORMAL (NORMAL)
[2018-10-25] MEDS: SOLU-Medrol 125 MG VIAL IVP SCH ×2 (06:40→13:04)
[2018-10-25] MEDS: APRESOLINE TAB 25 MG PO SCH ×3 (06:40→21:11)
[2018-10-25] MEDS ORDERED: PROCARDIA XL PO SCH ×2 (09:00→14:00)
[2018-10-25] MEDS: FLOMAX PO SCH (09:05)
[2018-10-25] MEDS: PROTONIX INJ 40 MG VIAL IVP SCH (09:05)
[2018-10-25] MEDS: ROCEPHIN VIAL 1 GRAM IVP SCH (09:05)
[2018-10-25] MEDS: ALDACTONE TAB 25 MG PO SCH (09:05)
[2018-10-25] MEDS: LIPITOR TAB 40 MG PO SCH (09:05)
[2018-10-25] MEDS: FERROUS GLUCONATE PO SCH (09:05)
[2018-10-25] MEDS: PROSCAR PO SCH (09:06)
[2018-10-25] MEDS: LOVENOX INJ 30 MG SYR SC SCH (09:06)
[2018-10-25] MEDS: PLAVIX PO SCH (09:06)
[2018-10-25] MEDS: CATAPRES TAB 0.1 MG PO SCH ×2 (09:06→20:40)
[2018-10-25] MEDS: COREG TAB 12.5 MG PO SCH ×2 (09:10→20:40)
[2018-10-25] MEDS: CARDIZEM SR 90 MG PO SCH (09:20)
--- NOTE | 2018-10-25 13:19 | PCM.PROG ---
Progress Note - Progress Note for Day of Date of Exam: 10/25/18 - Subjective Subjective: 81 BM ER ADMISSION ON 10/24 WITH CO SOB AND ACUTE ON CHRONIC RENAL FAILURE, CO INCREASED CONFUSION PER FAMILY. PT IS AWAKE AND ALERT THIS AM. PT HAS IMPROVED UPPER INSPIRATORY WHEEZING, BUT CONTINUED BILATERAL DIMINISHED LUNG BASES AND MILD DIFFUSE EXP WHEEZING. PT DENIES CHEST PAIN. PT CONTINUES WITH HYPERTENSION, PT AND FAMILY CONFUSED ABOUT "WHAT ALL BP MEDICATION HE IS TAKING". ADDED CATAPRES .1 PO BID AND PROCARDIA 90 DAILY ANDPT STARTED ON IV SOLU MEDROL, DUO NEBS AND IV ROCEPHIN ON 10/24 WITH IMPROVEMENT IN SOB THIS AM. CONTINUED WITH ELEVATED CREAT 2.11 THIS AM. WILL CONTINUE BP CONTROL AND RESP THERAPY - Past Medical Family Social History Past Med/Fam/Surg Hx: No changes since H&P Allergies: Allergies ketorolac [From Toradol] Allergy (Verified 10/23/18 07:52) lisinopril Allergy (Verified 10/23/18 07:52) - Review of Systems ROS: No change since H&P - Vital Signs and I&O's Vital Signs: Temperature 98.2 F Pulse Rate [Left Brachial] 66 Pulse Rate [Right Brachial] 67 Pulse Rate 71 Respiratory Rate 20 Blood Pressure [Right Arm] 175/77 Blood Pressure [Left Arm] 198/63 Blood Pressure 194/85 O2 Sat by Pulse Oximetry 98 Intake and Output: Intake & Output 10/23/18 10/24/18 10/25/18 10/26/18 11:59 11:59 11:59 11:59 Intake Total 1060 / 1060 Output Total 1050 / 1050 Balance -1040 / -1040 1060 / 1060 - Physical Exam Oriented: Person Eyes: Normal Ear: Normal Nose: Normal Throat: Normal Respiratory: Diminished, Wheezes Cardiovascular: Normal, Murmur. negative: Edema : Normal Auscultation: Bowel Sounds: Normal Tenderness: Normal Skin: Normal Musculoskeletal: Right, Left, Knee, Back:Lumbar Mood Description: Calm Speech Pattern: Clear, Appropriate - Laboratory and Diagnostics Result Diagrams: 10/25/18 04:35 10/25/18 04:35 Labs: Laboratory WBC 4.8 X10^3/uL (3.6-10.0) 10/25/18 04:35 RBC 3.43 X10^6/uL (4.7-6.0) L 10/25/18 04:35 Hgb 10.5 g/dL (13.5-18.0) L 10/25/18 04:35 Hct 31.5 % (42.0-54.0) L 10/25/18 04:35 MCV 91.6 fL (80.0-100.0) 10/25/18 04:35 MCH 30.5 pg (27.0-34.0) 10/25/18 04:35 MCHC 33.3 g/dL (33.0-35.0) 10/25/18 04:35 RDW 19.1 % (11.6-16.5) H 10/25/18 04:35 Plt Count 163 X10^3/uL (150.0-450.0) 10/25/18 04:35 Plt Count Comment Adequate (ADEQUATE) 10/25/18 04:35 MPV 8.8 fL (7.4-11.0) 10/25/18 04:35 Neut % (Auto) 91.0 % (42.0-75.0) H 10/25/18 04:35 Lymph % (Auto) 7.0 % (21.0-51.0) L 10/25/18 04:35 [place] % (Auto) 1.6 % (0.0-13.0) 10/25/18 04:35 Eos % (Auto) 0.0 % (0.9-2.9) L 10/25/18 04:35 Baso % (Auto) 0.4 % (0.2-1.0) 10/25/18 04:35 Neut # (Auto) 4.4 x10^3/uL (2.2-4.8) 10/25/18 04:35 Lymph # (Auto) 0.3 X10^3/uL (1.3-2.9) L 10/25/18 04:35 [place] # (Auto) 0.1 x10^3/uL (0.3-0.8) L 10/25/18 04:35 Eos # (Auto) 0.0 x10^3/uL (0.0-0.2) 10/25/18 04:35 Baso # (Auto) 0.0 X10^3/uL (0.0-0.1) 10/25/18 04:35 Absolute Nucleated RBC 0.0 /100WBC 10/25/18 04:35 Total Counted 100 10/25/18 04:35 Neutrophils % (Manual) 91 % (39-76) H 10/25/18 04:35 Band Neutrophils % 1 % (0-10) 10/25/18 04:35 Lymphocytes % (Manual) 7 % (13-43) L 10/25/18 04:35 Monocytes % (Manual) 1 % (4-9) L 10/25/18 04:35 Plt Morphology Comment Normal (NORMAL) 10/25/18 04:35 RBC Morphology Normal (NORMAL) 10/25/18 04:35 INR Target Range - 10/23/18 08:21 INR 1.09 (0.8-1.3) 10/23/18 08:21 APTT 29.4 SECONDS (22.9-36.5) 10/23/18 08:21 PTT Comment - 10/23/18 08:21 D-Dimer 635 ng/mL (0-400) H* 10/23/18 08:21 Sample Site Right brachial 10/24/18 14:14 ABG pH 7.500 (7.35-7.45) H 10/24/18 14:14 ABG pCO2 36.0 mmHg (35.0-45.0) 10/24/18 14:14 ABG pO2 67.0 mmHg (80.0-100.0) L 10/24/18 14:14 ABG HCO3 28.1 mmol/L (22-26) H 10/24/18 14:14 ABG O2 Saturation 95.0 % (90-100) 10/24/18 14:14 ABG Base Excess 4.8 mmol/L (-2.0-2.0) H 10/24/18 14:14 Mitch Test Na 10/24/18 14:14 A-a Gradient 38.0 mmHg 10/24/18 14:14 FiO2 21.0 10/24/18 14:14 Blood Gas Comments Maria Antonia well aw 10/24/18 14:14 Sodium 141 mmol/L (136-145) 10/25/18 04:35 Corrected Sodium 143 mmol/L (136-145) 10/25/18 04:35 Potassium 3.6 mmol/L (3.5-5.1) 10/25/18 04:35 Chloride 106 mmol/L (98-107) 10/25/18 04:35 Carbon Dioxide 27.2 mmol/L (21-32) 10/25/18 04:35 BUN 23 mg/dL (7-18) H 10/25/18 04:35 Creatinine 2.11 mg/dL (0.70-1.30) H 10/25/18 04:35 Est GFR (MDRD) Af Amer 39 (>60) L 10/25/18 04:35 Est GFR (MDRD) Non-Af 32 (>60) L 10/25/18 04:35 Glucose 201 mg/dL (65-99) H 10/25/18 04:35 Calcium 9.1 mg/dL (8.5-10.1) 10/25/18 04:35 Corrected Calcium 10.1 mg/dL (8.5-10.1) 10/25/18 04:35 Magnesium 2.0 mg/dL (1.7-2.9) 10/23/18 08:21 Total Bilirubin 0.30 mg/dL (0.2-1.0) 10/25/18 04:35 AST 20 Units/L (15-37) 10/25/18 04:35 ALT 47 Units/L (12-78) 10/25/18 04:35 Alkaline Phosphatase 60 Units/L (46-116) 10/25/18 04:35 Creatine Kinase 118 Units/L (39-308) 10/24/18 05:35 CK-MB (CK-2) 2.2 ng/mL (0-4.0) 10/24/18 05:35 CK/CKMB % Calc 1.9 % (<4) 10/24/18 05:35 Troponin I 0.08 ng/mL (0-1.5) 10/24/18 05:35 B-Natriuretic Peptide 1370 pg/mL (0-79) H* 10/23/18 08:21 Total Protein 6.2 g/dL (6.4-8.2) L 10/25/18 04:35 Albumin 2.8 g/dL (3.4-5.0) L 10/25/18 04:35 Globulin 3.4 g/dL (2.5-4.5) 10/25/18 04:35 Albumin/Globulin Ratio 0.8 Ratio (1.1-2.1) L 10/25/18 04:35 Specimen Type Clean catch urine 10/23/18 16:55 Urine Color Yellow (YELLOW) 10/23/18 16:55 Urine Appearance Clear (CLEAR) 10/23/18 16:55 Urine pH 6.0 (5.0 - 8.0) 10/23/18 16:55 Ur Specific [place] 1.010 (1.000-1.030) 10/23/18 16:55 Urine Protein 3+ (NEGATIVE) 10/23/18 16:55 Urine Glucose (UA) Negative (NEGATIVE) 10/23/18 16:55 Urine Ketones Negative (NEGATIVE) 10/23/18 16:55 Urine Occult Blood 1+ (NEGATIVE) 10/23/18 16:55 Urine Nitrite Negative (NEGATIVE) 10/23/18 16:55 Urine Bilirubin Negative (NEGATIVE) 10/23/18 16:55 Urine Urobilinogen Normal (NORMAL) 10/23/18 16:55 Ur Leukocyte Esterase Negative (NEGATIVE) 10/23/18 16:55 Urine RBC 3-5 /HPF (NONE SEEN) 10/23/18 16:55 Urine WBC 0-2 /HPF (NONE SEEN) 10/23/18 16:55 Ur Squamous Epith Cells Rare /HPF (NEGATIVE) 10/23/18 16:55 Urine Bacteria Trace /HPF (NEGATIVE) 10/23/18 16:55 Urine Mucus Few /HPF (NEGATIVE) 10/23/18 16:55 Ur Culture Indicated? No/not indicated 10/23/18 16:55 Influenza Type A (PCR) Negative (NEGATIVE) 10/23/18 19:16 Influenza Type B (PCR) Negative (NEGATIVE) 10/23/18 19:16 - Plan (1) COPD (chronic obstructive pulmonary disease) with acute bronchitis Status: Acute Plan: IV ROCEPHIN, DUE NEBS. GENTLE IV HYDRATION. BP CONTROL, REPEAT AM LABS. SUPPLEMENTAL O2 (2) Dyspnea Status: Acute Qualifiers: Dyspnea type: shortness of breath Qualified Code(s): R06.02 - Shortness of breath; R06.00 - Dyspnea, unspecified; R06.01 - Orthopnea Plan: SERIAL CE AND EKG ON ADMISSION. CXR ON ADMISSION AND REPEAT Q AM. STRICT I & OS, MAY INSERT TALBOT CATH. BP AND LIPID CONTROL. BS CONTROL, SSI. COPD TREATMENT. VERIFY HOME MEDICATION, SUPPLEMENTAL O2, RESP THERAPY (3) Hypertension, uncontrolled Status: Acute (4) D-dimer, elevated Status: Acute (5) CHF (congestive heart failure) Status: Chronic Qualifiers: (6) Diabetes mellitus Status: Chronic Qualifiers: (7) Coronary artery disease Status: Chronic (8) GERD (gastroesophageal reflux disease) Status: Chronic Qualifiers: (9) Chronic kidney disease (CKD) Status: Chronic (10) Acute on chronic renal failure Status: Acute
[2018-10-25] MEDS: PROCARDIA XL PO SCH ×2 (15:25)
[2018-10-26] MEDS: XOPENEX 1.25 MG/3 ML NEBULE NEB SCH ×3 (00:51→11:55)
[2018-10-26] MEDS: Atrovent NEB TX 0.02% NEB SCH ×3 (00:51→11:55)
[2018-10-26 05:26] LABS: BASOPHILS % (AUTO) 0.2 % (0.2-1.0); EOSINOPHILS % (AUTO) 0.1 % (0.9-2.9); HEMATOCRIT 27.5 % (42.0-54.0); HEMOGLOBIN 9.2 g/dL (13.5-18.0); LYMPHOCYTES # (AUTO) 0.7 X10^3/uL (1.3-2.9); LYMPHOCYTES % (AUTO) 9.2 % (21.0-51.0); MEAN CORPUSCULAR HEMOGLOBIN 30.4 pg (27.0-34.0); MEAN CORPUSCULAR HGB CONC 33.3 g/dL (33.0-35.0); MEAN CORPUSCULAR VOLUME 91.2 fL (80.0-100.0); MONOCYTES # (AUTO) 0.8 x10^3/uL (0.3-0.8); MONOCYTES % (AUTO) 10.4 % (0.0-13.0); NEUTROPHILS # (AUTO) 6.5 x10^3/uL (2.2-4.8); NEUTROPHILS % (AUTO) 80.1 % (42.0-75.0); PLATELET COUNT 143 X10^3/uL (150.0-450.0); RED BLOOD COUNT 3.02 X10^6/uL (4.7-6.0); RED CELL DISTRIBUTION WIDTH 19.2 % (11.6-16.5); WHITE BLOOD COUNT 8.1 X10^3/uL (3.6-10.0)
[2018-10-26] MEDS: APRESOLINE TAB 25 MG PO SCH ×2 (05:27→14:34)
[2018-10-26] MEDS: NS 1000 ML 1,000 ML IV SCH (05:29)
[2018-10-26 05:34] LABS: ALBUMIN 2.5 g/dL (3.4-5.0); CALCIUM 8.7 mg/dL (8.5-10.1); CARBON DIOXIDE 27.4 mmol/L (21-32); COR CA(FOR HYPOALB) 9.9 mg/dL (8.5-10.1); CREATININE 2.58 mg/dL (0.70-1.30); TOTAL PROTEIN 5.7 g/dL (6.4-8.2)
[2018-10-26] MEDS: FERROUS GLUCONATE PO SCH (08:30)
[2018-10-26] MEDS: LIPITOR TAB 40 MG PO SCH (08:30)
[2018-10-26] MEDS: CATAPRES TAB 0.1 MG PO SCH (08:30)
[2018-10-26] MEDS: COREG TAB 12.5 MG PO SCH (08:30)
[2018-10-26] MEDS: PROSCAR PO SCH (08:30)
[2018-10-26] MEDS: PLAVIX PO SCH (08:30)
[2018-10-26] MEDS: PROCARDIA XL PO SCH ×2 (08:30)
[2018-10-26] MEDS: ROCEPHIN VIAL 1 GRAM IVP SCH (08:31)
[2018-10-26] MEDS: LOVENOX INJ 30 MG SYR SC SCH (08:31)
[2018-10-26] MEDS: ALDACTONE TAB 25 MG PO SCH (08:31)
[2018-10-26] MEDS: PROTONIX INJ 40 MG VIAL IVP SCH (08:31)
[2018-10-26] MEDS: FLOMAX PO SCH (08:31)
[2018-10-26] MEDS: CARDIZEM SR 90 MG PO SCH (08:31)
[2018-10-26 14:11] VITALS: BP 165/72
== END 2018-10-26 15:40 | disposition home or self-care (01) ==
LOC: ER 07:50 → MED/SURG 07:50 → EDBD 13:52 → MED/SURG 14:03
PROVIDERS: ADMIT Internal Medicine; ATTEND Internal Medicine
DX: R94.31 Abnormal electrocardiogram [ECG] [EKG]; R53.1 Weakness; I25.10 Atherosclerotic heart disease of native coronary artery without angina pectoris; R06.02 Shortness of breath; R26.89 Other abnormalities of gait and mobility; I50.9 Heart failure, unspecified; E11.22 Type 2 diabetes mellitus with diabetic chronic kidney disease; N17.8 Other acute kidney failure; N18.9 Chronic kidney disease, unspecified; I13.0 Hypertensive heart and chronic kidney disease with heart failure and stage 1 through stage 4 chronic kidney disease, or unspecified chronic kidney disease; R94.4 Abnormal results of kidney function studies; J44.0 Chronic obstructive pulmonary disease with (acute) lower respiratory infection; J44.1 Chronic obstructive pulmonary disease with (acute) exacerbation; J20.8 Acute bronchitis due to other specified organisms; E11.65 Type 2 diabetes mellitus with hyperglycemia; N40.0 Benign prostatic hyperplasia without lower urinary tract symptoms; R79.1 Abnormal coagulation profile
CPT/HCPCS: 36415; 36600; 71010; 71045; 80053; 81001; 82550; 82553; 82803; 83735; 83880; 84484; 85025; 85378; 85610; 85730; 87502; 93005; 94640; 94760; 96365; 96367; 96372; 96374; 97161; 99218; 99284; A4216; A4222; C9113; S0138; G0378; J0696; J1650; J1940; J2930; J7030; J7620; J7644

== ENCOUNTER 2019-03-03 12:15 | Inpatient (IN) ==
[2019-03-03 13:12] LABS: ABG BASE EXCESS 2.9 mmol/L (-2.0-2.0); ABG HCO3 18.9 mmol/L (22-26)
[2019-03-03 13:14] LABS: ABG ALLEN TEST POS
[2019-03-03 13:28] LABS: BASOPHILS % (AUTO) 0.6 % (0.2-1.0); EOSINOPHILS # (AUTO) 0.2 x10^3/uL (0.0-0.2); EOSINOPHILS % (AUTO) 2.7 % (0.9-2.9); HEMATOCRIT 28.6 % (42.0-54.0); HEMOGLOBIN 9.7 g/dL (13.5-18.0); LYMPHOCYTES # (AUTO) 0.9 X10^3/uL (1.3-2.9); LYMPHOCYTES % (AUTO) 13.8 % (21.0-51.0); MEAN CORPUSCULAR HEMOGLOBIN 31.3 pg (27.0-34.0); MEAN CORPUSCULAR VOLUME 92.1 fL (80.0-100.0); MEAN PLATELET VOLUME 8.3 fL (7.4-11.0); MONOCYTES # (AUTO) 0.5 x10^3/uL (0.3-0.8); MONOCYTES % (AUTO) 8.8 % (0.0-13.0); NEUTROPHILS # (AUTO) 4.6 x10^3/uL (2.2-4.8); NEUTROPHILS % (AUTO) 74.1 % (42.0-75.0); PLATELET COUNT 179 X10^3/uL (150.0-450.0); RED CELL DISTRIBUTION WIDTH 15.4 % (11.6-16.5); WHITE BLOOD COUNT 6.2 X10^3/uL (3.6-10.0)
[2019-03-03 13:42] LABS: ALANINE AMINOTRANSFERASE 51 Units/L (12-78); ALBUMIN 3.1 g/dL (3.4-5.0); ALKALINE PHOSPHATASE 47 Units/L (46-116); ASPARTATE AMINO TRANSFERASE 21 Units/L (15-37); BLOOD UREA NITROGEN 45 mg/dL (7-18); CALCIUM 9.5 mg/dL (8.5-10.1); CARBON DIOXIDE 20.2 mmol/L (21-32); CHLORIDE 107 mmol/L (98-107); CKMB % 1.7 % (<4); COR CA(FOR HYPOALB) 10.2 mg/dL (8.5-10.1); CREATINE KINASE 59 Units/L (39-308); CREATININE 2.86 mg/dL (0.70-1.30); SODIUM 139 mmol/L (136-145); TOTAL PROTEIN 6.4 g/dL (6.4-8.2); TROPONIN I 0.06 ng/mL (0-1.5); eGFR NON BLACK RACES 23 (>60)
[2019-03-03] MEDS: NS 1000 ML 1,000 ML IV SCH (13:45)
[2019-03-03] MEDS: PROTONIX INJ 40 MG VIAL IVP SCH (13:45)
[2019-03-03] MEDS: APRESOLINE TAB 25 MG PO SCH ×2 (13:45→21:18)
--- NOTE | 2019-03-03 14:29 | RAD ---
HISTORY: Patient states he was stents at [place] 2 days ago and got home yesterday. About 2 hr ago he got short of breath. Prior history of coronary artery disease, hypertension, diabetes and COPD. Prior surgical history of CABG and heart valve surgery and angioplasty with stents. Study: Single-view chest, done portably Comparison: 02/28/2019. Findings: There is again evidence of CABG with median sternotomy sutures and metallic markers and sutures indicating coronary artery bypass grafts. The trachea is midline. There is cardiomegaly with aortic uncoiling. There is hyperinflation of the lungs without CHF, infiltrate, pleural fluid or pneumothorax. There is mild demineralization of the osseous structures. IMPRESSION: Cardiomegaly with postsurgical changes as noted. Hyperinflation of the lungs without acute cardiopulmonary disease. Reported By:
[2019-03-03 15:32] LABS: BILIRUBIN,URINE NEGATIVE (NEGATIVE); BLOOD/HEMOGLOBIN,URINE NEGATIVE (NEGATIVE); GLUCOSE, URINE NEGATIVE (NEGATIVE); KETONES,URINE NEGATIVE (NEGATIVE); LEUKOCYTE ESTERASE ,URINE NEGATIVE (NEGATIVE); NITRITES,URINE NEGATIVE (NEGATIVE); PROTEIN,URINE 3+ (NEGATIVE); UROBILINOGEN,URINE NORMAL (NORMAL)
[2019-03-03 15:45] LABS: APPEARANCE,URINE CLEAR (CLEAR); COLOR,URINE YELLOW (YELLOW)
[2019-03-03 15:46] LABS: BACTERIA,URINE NEGATIVE /HPF (NEGATIVE); RBC,URINE 0-2 /HPF (NONE SEEN); SQUAMOUS EPITHELIAL CELL,UR RARE /HPF (NEGATIVE)
[2019-03-03] MEDS: DUONEB 0.5 MG/3 MG NEB SCH ×2 (16:14→20:42)
[2019-03-03 17:24] LABS: ABG BASE EXCESS 2.9 mmol/L (-2.0-2.0); ABG HCO3 21.2 mmol/L (22-26)
[2019-03-03 17:26] LABS: ABG ALLEN TEST POS
--- NOTE | 2019-03-03 17:57 | DR.H&P ---
H&P - History & Physical for Day of: H&P Date: 03/03/19 - Chief Complaint Chief Complaint: SOB - History of Present Illness History of Present Illness: 81 BM DIRECT ADMIT FROM DR MA OFFICE WITH CO SOB ONSET LAST EVENING. PT DENIES ANY CHEST PAIN THIS AM OR COUGH. PT WAS FLOWN TO [facility] ON FRIDAY, 02/28 DUE TO CP R/O AMI. FAMILY REPORTS PT DID NOT HAVE A HEART ATTACK AND PLAVIX WAS CHANGED TO [place]. PT WAS RELEASED HOME FROM [facility] ON FRIDAY. FAMILY REPORTS HE HAS KIDNEY FAILURE, CAD, CHF, COPD, HTN, OA. PT ADMITTED FOR ELVAUATION AND TREATMENT OF SOB. - Past Medical History Past Medical History: Coronary Artery Disease, Hypertension, Dyslipidemia, Diabetes, COPD, GERD, Arthritis Additional Medical History: Prostate Cancer, Bronchitis, Constipation - Past Surgical History Surgical History: Angioplasty/Stents, CABG/Valve Surgery - Family History Family Medical History: Diabetes Mellitus, Cancer, Coronary Artery Disease - Social History Does patient currently use any type of tobacco product: No Have you used tobacco products in the last 12 months: No Type of Tobacco Use: None Alcohol Use: None Drug Use: None - Medications Home Medications: Iodinated Contrast- Oral and IV Dye Allergy (Verified 02/28/19 17:05) ketorolac [From Toradol] Allergy (Verified 11/12/18 15:15) lisinopril Allergy (Verified 11/12/18 15:15) CONTINUE taking the following medications clonidine 1 patch TRANSDERMAL WEEKLY 03/03/19 [History] furosemide [Lasix] 20 mg PO QDAY 03/03/19 [History] hydrocodone-acetaminophen [[place]] 1 tab PO Q4H 03/03/19 [History] insulin degludec [Tresiba FlexTouch U-200] 15 unit SUBCUT QDAY 03/03/19 [History] nitroglycerin 1 tab SUBLINGUAL .[id number] PRN 03/03/19 [History] pantoprazole 40 mg PO DAILY 03/03/19 [History] potassium chloride 10 meq PO QDAY 03/03/19 [History] - Review of Systems Constitutional: Weakness Eyes: No Symptoms Reported ENT: No Symptoms Reported Respiratory: Shortness of Breath, SOB with Excertion Cardiovascular: Light Headedness. denies: Chest Pain, Edema Gastrointestinal: No Symptoms Reported Genitourinary: No Symptoms Reported Musculoskeletal: Leg Pain - Physical Exam Vital Signs: Temperature 98.3 F Pulse Rate [Apical] 65 Respiratory Rate 24 Blood Pressure [Right Arm] 168/74 Blood Pressure [Left Arm] 176/80 Blood Pressure 156/69 O2 Sat by Pulse Oximetry 100 Oriented: Normal, Other ([place]) Eyes: Normal Nose: Normal Throat: Normal Respiratory: RLL Diminished, LLL Diminished Cardiovascular: Normal, Murmur : Normal Auscultation: Bowel Sounds: Normal Palpation: Normal Tenderness: Normal Skin: Decreased [place] Musculoskeletal: Right, Left, Knee Psychiatric: Anxiety Mood Description: Anxious Affect: Anxious - Assessment/Plan (1) Dyspnea Qualifiers: Dyspnea type: shortness of breath Qualified Code(s): R06.02 - Shortness of breath; R06.00 - Dyspnea, unspecified; R06.01 - Orthopnea Status: Acute Plan: ADMIT, ICU. SERIAL CE, EKG, CXR ON ADMISSION. STAT ABG, RESP CONSULT. VERIFY HOME MEDICATION, BP CONTROL. CONTINUOUS CARDIAC MONITORING, PRN SUPPLEMENTAL O2. TALBOT CATH WITH STRICT I &OS (2) CKD (chronic kidney disease) stage 3, GFR 30-59 ml/min Status: Acute (3) Diabetes type 2, controlled Qualifiers: Diabetes mellitus chcf insulin use: without chcf use Diabetes mellitus complication status: with kidney complications Diabetes mellitus complication detail: with chronic kidney disease Chronic kidney disease stage: stage 3 (moderate) Qualified Code(s): E11.22 - Type 2 diabetes mellitus with diabetic chronic kidney disease; N18.3 - Chronic kidney disease, stage 3 (moderate) Status: Acute (4) CHF (congestive heart failure) Qualifiers: Heart failure type: combined systolic and diastolic Heart failure chronicity: acute on chronic Qualified Code(s): I50.43 - Acute on chronic combined systolic (congestive) and diastolic (congestive) heart failure Status: Acute (5) Coronary artery disease Status: Chronic - Allergies Allergies/Adverse Reactions: Allergies Allergy/AdvReac Type Severity Reaction Status Date / Time Iodinated Contrast- Oral and Allergy Verified 02/28/19 17:05 IV Dye ketorolac [From Toradol] Allergy Verified 11/12/18 15:15 lisinopril Allergy Verified 11/12/18 15:15
[2019-03-03 19:30] LABS: CKMB % 1.6 % (<4); CREATINE KINASE MB 1.2 ng/mL (0-4.0); TROPONIN I 0.06 ng/mL (0-1.5)
[2019-03-03 19:32] LABS: ABG BASE EXCESS 2.4 mmol/L (-2.0-2.0)
[2019-03-03] MEDS: SNACK - Diabetic Appropriate PO SCH (20:00)
[2019-03-03] MEDS: COREG TAB 12.5 MG PO SCH (21:17)
[2019-03-03] MEDS: LIPITOR TAB 40 MG PO SCH (21:17)
[2019-03-03 21:19] LABS: ABG BASE EXCESS 2.7 mmol/L (-2.0-2.0); ABG HCO3 20.2 mmol/L (22-26)
[2019-03-03 21:26] LABS: FRACTIONATED INSPIRED OXYGEN 50
[2019-03-03] MEDS ORDERED: ATIVAN INJ 2 MG VIAL IVP ONE (22:13)
[2019-03-03] MEDS ORDERED: ATIVAN INJ 2 MG VIAL ONE (22:23)
[2019-03-04 01:23] LABS: CREATINE KINASE MB 1.3 ng/mL (0-4.0); TROPONIN I 0.07 ng/mL (0-1.5)
[2019-03-04 04:38] LABS: BASOPHILS % (AUTO) 0.6 % (0.2-1.0); EOSINOPHILS # (AUTO) 0.2 x10^3/uL (0.0-0.2); EOSINOPHILS % (AUTO) 3.9 % (0.9-2.9); HEMATOCRIT 26.4 % (42.0-54.0); HEMOGLOBIN 8.8 g/dL (13.5-18.0); LYMPHOCYTES # (AUTO) 1.1 X10^3/uL (1.3-2.9); LYMPHOCYTES % (AUTO) 16.5 % (21.0-51.0); MEAN CORPUSCULAR HEMOGLOBIN 31.8 pg (27.0-34.0); MEAN CORPUSCULAR HGB CONC 33.4 g/dL (33.0-35.0); MEAN CORPUSCULAR VOLUME 95.2 fL (80.0-100.0); MONOCYTES # (AUTO) 0.6 x10^3/uL (0.3-0.8); NEUTROPHILS # (AUTO) 4.4 x10^3/uL (2.2-4.8); PLATELET COUNT 149 X10^3/uL (150.0-450.0); RED BLOOD COUNT 2.78 X10^6/uL (4.7-6.0); RED CELL DISTRIBUTION WIDTH 15.5 % (11.6-16.5); WHITE BLOOD COUNT 6.4 X10^3/uL (3.6-10.0)
[2019-03-04 04:54] LABS: ALBUMIN 2.7 g/dL (3.4-5.0); CALCIUM 8.7 mg/dL (8.5-10.1); CARBON DIOXIDE 23.8 mmol/L (21-32); COR CA(FOR HYPOALB) 9.7 mg/dL (8.5-10.1); CREATININE 2.84 mg/dL (0.70-1.30); TOTAL PROTEIN 5.7 g/dL (6.4-8.2)
[2019-03-04 05:24] LABS: ABG HCO3 24.8 mmol/L (22-26)
[2019-03-04] MEDS: APRESOLINE TAB 25 MG PO SCH ×3 (05:45→21:29)
--- NOTE | 2019-03-04 07:11 | RAD ---
HISTORY: Chest pain Study: Single portable view of the chest. Comparison: Chest radiograph dated 03/03/2019. Findings: The trachea is midline. The cardiac silhouette is enlarged with a tortuous thoracic aorta. The patient is status post median sternotomy. Chronic lung changes are seen as well. The lungs are clear without focal infiltrate or effusion. The bony thorax is unremarkable. IMPRESSION: 1. 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 No evidence for CHF or edema. Reported By:
[2019-03-04] MEDS ORDERED: NIFEDIPINE 90 MG PO SCH (09:00)
[2019-03-04] MEDS: PROCARDIA XL PO SCH (09:01)
[2019-03-04] MEDS: PROTONIX INJ 40 MG VIAL IVP SCH (09:01)
[2019-03-04] MEDS: COREG TAB 12.5 MG PO SCH ×2 (09:01→21:18)
[2019-03-04] MEDS: LOVENOX INJ 30 MG SYR SC SCH (09:02)
[2019-03-04] MEDS: PLAVIX PO SCH (09:02)
[2019-03-04] MEDS: DUONEB 0.5 MG/3 MG NEB SCH ×4 (09:12→20:48)
[2019-03-04] MEDS: MORPHINE SULFATE INJ 2 MG INJ IVP PRN (11:33)
[2019-03-04 12:12] LABS: CKMB % 2.2 % (<4); CREATINE KINASE MB 1.4 ng/mL (0-4.0); TROPONIN I 0.06 ng/mL (0-1.5)
[2019-03-04] MEDS: NS 1000 ML 1,000 ML IV SCH (18:36)
[2019-03-04] MEDS: ASPIRIN EC 81 MG PO SCH (18:36)
[2019-03-04] MEDS: LASIX PO SCH (18:37)
[2019-03-04] MEDS: SNACK - Diabetic Appropriate PO SCH (20:45)
[2019-03-04] MEDS: PROSCAR PO SCH (21:18)
[2019-03-04] MEDS: LIPITOR TAB 40 MG PO SCH (21:18)
[2019-03-05 05:08] LABS: BASOPHILS # (AUTO) 0.1 X10^3/uL (0.0-0.1); BASOPHILS % (AUTO) 0.9 % (0.2-1.0); EOSINOPHILS # (AUTO) 0.4 x10^3/uL (0.0-0.2); EOSINOPHILS % (AUTO) 6.8 % (0.9-2.9); HEMATOCRIT 25.7 % (42.0-54.0); HEMOGLOBIN 8.7 g/dL (13.5-18.0); LYMPHOCYTES # (AUTO) 1.2 X10^3/uL (1.3-2.9); LYMPHOCYTES % (AUTO) 19.7 % (21.0-51.0); MEAN CORPUSCULAR HEMOGLOBIN 31.9 pg (27.0-34.0); MEAN CORPUSCULAR HGB CONC 33.7 g/dL (33.0-35.0); MEAN CORPUSCULAR VOLUME 94.6 fL (80.0-100.0); MEAN PLATELET VOLUME 9.3 fL (7.4-11.0); MONOCYTES # (AUTO) 0.6 x10^3/uL (0.3-0.8); MONOCYTES % (AUTO) 9.6 % (0.0-13.0); NEUTROPHILS # (AUTO) 3.8 x10^3/uL (2.2-4.8); PLATELET COUNT 143 X10^3/uL (150.0-450.0); RED BLOOD COUNT 2.71 X10^6/uL (4.7-6.0); RED CELL DISTRIBUTION WIDTH 15.2 % (11.6-16.5)
[2019-03-05 05:10] LABS: ABG BASE EXCESS 0.2 mmol/L (-2.0-2.0); ABG HCO3 23.5 mmol/L (22-26)
[2019-03-05 05:15] LABS: ALBUMIN 2.8 g/dL (3.4-5.0); CALCIUM 8.9 mg/dL (8.5-10.1); CARBON DIOXIDE 22.5 mmol/L (21-32); COR CA(FOR HYPOALB) 9.9 mg/dL (8.5-10.1); CREATININE 2.67 mg/dL (0.70-1.30); TOTAL PROTEIN 5.8 g/dL (6.4-8.2)
[2019-03-05] MEDS: APRESOLINE TAB 25 MG PO SCH ×4 (05:27→21:24)
--- NOTE | 2019-03-05 06:24 | RAD ---
History: Shortness of breath Exam: Chest x-ray Comparison: 09/06/2018 Technique: A portable AP chest was obtained. Findings: The heart is mildly enlarged but unchanged. The pulmonary vessels are top normal. The lungs are mildly hyperinflated and emphysematous with mild linear densities scattered along the lung bases. No consolidation or effusion is seen. IMPRESSION: Stable cardiomegaly with mild discoid atelectasis or scarring along the lung bases which is more prominent. No infiltrate or effusion is seen. Reported By:
[2019-03-05] MEDS: PROTONIX TAB 40 MG PO SCH (08:12)
[2019-03-05] MEDS: COREG TAB 12.5 MG PO SCH ×2 (08:12→21:24)
[2019-03-05] MEDS: PROCARDIA XL PO SCH (08:12)
[2019-03-05] MEDS: LASIX PO SCH (08:13)
[2019-03-05] MEDS: ASPIRIN EC 81 MG PO SCH (08:13)
[2019-03-05] MEDS: PLAVIX PO SCH (08:13)
[2019-03-05] MEDS: LOVENOX INJ 30 MG SYR SC SCH (08:13)
[2019-03-05 08:27] LABS: CKMB % 1.8 % (<4); CREATINE KINASE MB 1.2 ng/mL (0-4.0); TROPONIN I 0.06 ng/mL (0-1.5)
[2019-03-05] MEDS: DUONEB 0.5 MG/3 MG NEB SCH ×4 (08:47→20:37)
--- NOTE | 2019-03-05 15:05 | NM ---
VQ SCAN CLINICAL INDICATION: Tachypnea PROCEDURE: Following the inhalation of approximately 26.4 mCi Tc-99m DTPA aerosol, planar lung images were performed in multiple projections. Subsequently, following the intravenous administration of 5.4 mCi Tc-99m MAA, planar lung images were also obtained in multiple projections. COMPARISON: None FINDINGS: Perfusion and ventilation lung images demonstrate no defects. There are no segmental or subsegmental mismatched defects suspicious for acute pulmonary embolus. IMPRESSION: 1. Not consistent with PE. In addition, it is recommended that all VQ scan probability levels be combined with the clinical probability score (Wells or similar) to arrive at overall probability. If the pretest probability is high, but VQ is "not characteristic for PE" (low or very low probability) then another test may still be indicated such as CTA or LE US for DVT. Reported By:
[2019-03-05] MEDS: NS 1000 ML 1,000 ML IV SCH (17:31)
[2019-03-05] MEDS: SNACK - Diabetic Appropriate PO SCH (20:25)
[2019-03-05] MEDS: PROSCAR PO SCH (21:24)
[2019-03-05] MEDS: LIPITOR TAB 40 MG PO SCH (21:25)
[2019-03-05] MEDS: HumuLIN R SUBCUT PRN (21:34)
[2019-03-06 05:22] LABS: ABG HCO3 21.3 mmol/L (22-26)
[2019-03-06 05:22] LABS: BASOPHILS # (AUTO) 0.1 X10^3/uL (0.0-0.1); BASOPHILS % (AUTO) 0.8 % (0.2-1.0); EOSINOPHILS # (AUTO) 0.4 x10^3/uL (0.0-0.2); EOSINOPHILS % (AUTO) 5.2 % (0.9-2.9); HEMATOCRIT 24.9 % (42.0-54.0); HEMOGLOBIN 8.5 g/dL (13.5-18.0); LYMPHOCYTES # (AUTO) 1.1 X10^3/uL (1.3-2.9); LYMPHOCYTES % (AUTO) 16.2 % (21.0-51.0); MEAN CORPUSCULAR HEMOGLOBIN 32.1 pg (27.0-34.0); MEAN CORPUSCULAR VOLUME 94.3 fL (80.0-100.0); MEAN PLATELET VOLUME 9.1 fL (7.4-11.0); MONOCYTES # (AUTO) 0.7 x10^3/uL (0.3-0.8); MONOCYTES % (AUTO) 9.8 % (0.0-13.0); NEUTROPHILS # (AUTO) 4.7 x10^3/uL (2.2-4.8); PLATELET COUNT 142 X10^3/uL (150.0-450.0); RED BLOOD COUNT 2.64 X10^6/uL (4.7-6.0); RED CELL DISTRIBUTION WIDTH 15.3 % (11.6-16.5)
[2019-03-06 05:37] LABS: ALBUMIN 2.7 g/dL (3.4-5.0); CALCIUM 8.8 mg/dL (8.5-10.1); CARBON DIOXIDE 21.4 mmol/L (21-32); COR CA(FOR HYPOALB) 9.8 mg/dL (8.5-10.1); CREATININE 2.61 mg/dL (0.70-1.30); TOTAL PROTEIN 5.8 g/dL (6.4-8.2)
[2019-03-06] MEDS: APRESOLINE TAB 25 MG PO SCH ×3 (06:07→21:38)
--- NOTE | 2019-03-06 08:06 | RAD ---
Examination: Portable AP chest History: SOB Comparison 03/05/2019 Findings: Continued cardiomegaly with sternal wires. Essentially clear lungs and pleural spaces. There is no evidence for pulmonary edema or pneumonia. Impression: Redemonstration of cardiomegaly and prior sternotomy. No acute findings. Reported By:
[2019-03-06] MEDS: DUONEB 0.5 MG/3 MG NEB SCH ×4 (08:33→20:36)
[2019-03-06] MEDS: COREG TAB 12.5 MG PO SCH ×2 (09:30→21:38)
[2019-03-06] MEDS: PROTONIX TAB 40 MG PO SCH (09:30)
[2019-03-06] MEDS: PROCARDIA XL PO SCH (09:30)
[2019-03-06] MEDS: LASIX PO SCH (09:30)
[2019-03-06] MEDS: PLAVIX PO SCH (09:30)
[2019-03-06] MEDS: ASPIRIN EC 81 MG PO SCH (09:30)
[2019-03-06] MEDS: LOVENOX INJ 30 MG SYR SC SCH (09:31)
[2019-03-06] MEDS: HumuLIN R SUBCUT PRN ×2 (11:30→21:38)
[2019-03-06] MEDS: NS 1000 ML 1,000 ML IV SCH (13:38)
[2019-03-06] MEDS: SNACK - Diabetic Appropriate PO SCH (20:15)
[2019-03-06] MEDS: PROSCAR PO SCH (21:38)
[2019-03-06] MEDS: LIPITOR TAB 40 MG PO SCH (21:38)
[2019-03-07] MEDS: APRESOLINE TAB 25 MG PO SCH ×3 (05:31→21:07)
[2019-03-07] MEDS: NS 1000 ML 1,000 ML IV SCH ×2 (05:34→16:23)
[2019-03-07 05:53] LABS: BASOPHILS # (AUTO) 0.1 X10^3/uL (0.0-0.1); BASOPHILS % (AUTO) 0.8 % (0.2-1.0); EOSINOPHILS # (AUTO) 0.4 x10^3/uL (0.0-0.2); EOSINOPHILS % (AUTO) 5.5 % (0.9-2.9); HEMATOCRIT 23.8 % (42.0-54.0); HEMOGLOBIN 8.1 g/dL (13.5-18.0); LYMPHOCYTES % (AUTO) 13.8 % (21.0-51.0); MEAN CORPUSCULAR HGB CONC 34.1 g/dL (33.0-35.0); MEAN CORPUSCULAR VOLUME 93.8 fL (80.0-100.0); MEAN PLATELET VOLUME 9.2 fL (7.4-11.0); MONOCYTES # (AUTO) 0.7 x10^3/uL (0.3-0.8); MONOCYTES % (AUTO) 10.3 % (0.0-13.0); NEUTROPHILS # (AUTO) 4.8 x10^3/uL (2.2-4.8); NEUTROPHILS % (AUTO) 69.6 % (42.0-75.0); PLATELET COUNT 123 X10^3/uL (150.0-450.0); RED BLOOD COUNT 2.53 X10^6/uL (4.7-6.0); RED CELL DISTRIBUTION WIDTH 15.8 % (11.6-16.5)
[2019-03-07 06:00] LABS: ALANINE AMINOTRANSFERASE 35 Units/L (12-78); ALBUMIN 2.6 g/dL (3.4-5.0); ALKALINE PHOSPHATASE 39 Units/L (46-116); ASPARTATE AMINO TRANSFERASE 17 Units/L (15-37); BLOOD UREA NITROGEN 43 mg/dL (7-18); CALCIUM 8.6 mg/dL (8.5-10.1); CARBON DIOXIDE 20.5 mmol/L (21-32); CHLORIDE 109 mmol/L (98-107); COR CA(FOR HYPOALB) 9.7 mg/dL (8.5-10.1); CREATININE 2.66 mg/dL (0.70-1.30); SODIUM 142 mmol/L (136-145); TOTAL PROTEIN 5.5 g/dL (6.4-8.2); eGFR NON BLACK RACES 25 (>60)
--- NOTE | 2019-03-07 06:56 | RAD ---
HISTORY: Shortness of breath Study: Single view chest Comparison: 03/06/2019 Findings: Single portable view is submitted. No infiltrate, effusion or pneumothorax identified. Stable cardiomegaly post sternotomy. Aorta appears tortuous. The soft tissues are unremarkable. IMPRESSION: 1. Stable cardiomegaly without acute findings. Reported By:
[2019-03-07] MEDS: DUONEB 0.5 MG/3 MG NEB SCH ×4 (08:25→20:08)
[2019-03-07] MEDS: COREG TAB 12.5 MG PO SCH ×2 (09:24→21:07)
[2019-03-07] MEDS: ASPIRIN EC 81 MG PO SCH (09:24)
[2019-03-07] MEDS: LASIX PO SCH (09:24)
[2019-03-07] MEDS: LOVENOX INJ 30 MG SYR SC SCH (09:24)
[2019-03-07] MEDS: PROCARDIA XL PO SCH (09:25)
[2019-03-07] MEDS: PROTONIX TAB 40 MG PO SCH (09:25)
[2019-03-07] MEDS: PLAVIX PO SCH (09:25)
[2019-03-07] MEDS: HumuLIN R SUBCUT PRN ×2 (16:32→22:20)
[2019-03-07] MEDS: MORPHINE SULFATE INJ 2 MG INJ IVP PRN (16:37)
--- NOTE | 2019-03-07 19:47 | PCM.PROG ---
Progress Note - Progress Note for Day of Date of Exam: 03/06/19 - Subjective Subjective: WAS ADMITTED ON 03/03/19 FOR RENAL FAILURE, SHORTNESS OF BREATH, AND CONGESTIVE HEART FAILURE. TODAY, HE IS ALERT AND ORIENTED, LYING IN BED ON MORNING ROUNDS. HE CONTINUES WITH SHORTNESS OF BREATH TODAY. ON EXAMINATION, HEART IS REGULAR IN RATE AND RHYTHM. BILATERAL LUNGS ARE NOTED WITH DIMINISHED LUNG SOUNDS THROUGHOUT. ABDOMEN IS ROUND, SOFT, AND NOTED WITH NORMAL BOWEL SOUNDS IN ALL QUADRANTS. HIS VITALS THIS MORNING ARE: 98.4-58-21-100%-122/56. LABS WERE OBTAINED. ABNORMAL LAB VALUES INCLUDE THE FOLLOWING: RBC 2.64, HGB 8.5, HCT 24.9, PLT COUNT 142, CHLORIDE 109, BUN 42, CRE ATININE 2.61, GLUCOSE 118, AST 14, ALK PHOS 41, TOTAL PROTEIN 5.8, GLOBULIN 2.7. A CHEST XRAY WAS OBTAINED AND REVEALED: Continued cardiomegaly with sternal wires. Essentially clear lungs and pleural spaces. There is no evidence for pulmonary edema or pneumonia. SHE IS CURRENTLY RECEIVING NORMAL SALINE AT KVO, RESPIRATORY TX, MORPHINE 1MG IV Q6H, LOVENOX 30MG SC DAILY, AND HOME MEDICATIONS WERE RESUMED. WE WILL CONTINUE WITH CURRENT PLAN OF CARE TODAY. OTHERWISE, WE PLAN TO FOLLOW UP WITH AM LABS AND CONTINUE TO MONITOR. - Past Medical Family Social History Past Med/Fam/Surg Hx: No changes since H&P Allergies: Allergies Iodinated Contrast- Oral and IV Dye Allergy (Verified 02/28/19 17:05) ketorolac [From Toradol] Allergy (Verified 11/12/18 15:15) lisinopril Allergy (Verified 11/12/18 15:15) - Review of Systems ROS: No change since H&P - Vital Signs and I&O's Vital Signs: Temperature 98.3 F Pulse Rate [Apical] 72 Pulse Rate 64 Respiratory Rate 32 Blood Pressure [Right Arm] 149/69 Blood Pressure [Left Arm] 176/80 Blood Pressure 169/74 O2 Sat by Pulse Oximetry 100 Intake and Output: Intake & Output 03/05/19 03/06/19 03/07/19 03/08/19 11:59 11:59 11:59 11:59 Intake Total 1679 / 1679 1517 / 1517 1490 / 1490 960 / 960 Output Total 2480 / 2480 1575 / 1575 1075 / 1075 Balance -801 / -801 -58 / -58 415 / 415 960 / 960 - Physical Exam Oriented: Normal, Other (TACHYPNEA) Eyes: Normal Nose: Normal Throat: Normal Respiratory: Diminished Cardiovascular: Normal, Murmur : Normal Auscultation: Bowel Sounds: Normal Palpation: Normal Tenderness: Normal Skin: Decreased Turgur Musculoskeletal: Right, Left, Knee Psychiatric: Anxiety Mood Description: Anxious Affect: Anxious Speech Pattern: Clear, Appropriate - Laboratory and Diagnostics Result Diagrams: 03/07/19 05:21 03/07/19 05:21 Labs: Laboratory WBC 7.0 X10^3/uL (3.6-10.0) 03/07/19 05:21 RBC 2.53 X10^6/uL (4.7-6.0) L 03/07/19 05:21 Hgb 8.1 g/dL (13.5-18.0) L 03/07/19 05:21 Hct 23.8 % (42.0-54.0) L 03/07/19 05:21 MCV 93.8 fL (80.0-100.0) 03/07/19 05:21 MCH 32.0 pg (27.0-34.0) 03/07/19 05:21 MCHC 34.1 g/dL (33.0-35.0) 03/07/19 05:21 RDW 15.8 % (11.6-16.5) 03/07/19 05:21 Plt Count 123 X10^3/uL (150.0-450.0) L 03/07/19 05:21 MPV 9.2 fL (7.4-11.0) 03/07/19 05:21 Neut % (Auto) 69.6 % (42.0-75.0) 03/07/19 05:21 Lymph % (Auto) 13.8 % (21.0-51.0) L 03/07/19 05:21 [place] % (Auto) 10.3 % (0.0-13.0) 03/07/19 05:21 Eos % (Auto) 5.5 % (0.9-2.9) H 03/07/19 05:21 Baso % (Auto) 0.8 % (0.2-1.0) 03/07/19 05:21 Neut # (Auto) 4.8 x10^3/uL (2.2-4.8) 03/07/19 05:21 Lymph # (Auto) 1.0 X10^3/uL (1.3-2.9) L 03/07/19 05:21 [place] # (Auto) 0.7 x10^3/uL (0.3-0.8) 03/07/19 05:21 Eos # (Auto) 0.4 x10^3/uL (0.0-0.2) H 03/07/19 05:21 Baso # (Auto) 0.1 X10^3/uL (0.0-0.1) 03/07/19 05:21 Absolute Nucleated RBC 0.0 /100WBC 03/07/19 05:21 Sample Site [facility] 03/06/19 05:17 ABG pH 7.490 (7.35-7.45) H 03/06/19 05:17 ABG pCO2 28.0 mmHg (35.0-45.0) L 03/06/19 05:17 ABG pO2 123.0 mmHg (80.0-100.0) H 03/06/19 05:17 ABG HCO3 21.3 mmol/L (22-26) L 03/06/19 05:17 ABG O2 Saturation 99.0 % (90-100) 03/06/19 05:17 ABG Base Excess -1.0 mmol/L (-2.0-2.0) 03/06/19 05:17 Mitch Test Na 03/06/19 05:17 A-a Gradient 42.0 mmHg 03/06/19 05:17 FiO2 28.0 03/06/19 05:17 Blood Gas Comments Maria Antonia abg well-mtf 03/06/19 05:17 Sodium 142 mmol/L (136-145) 03/07/19 05:21 Corrected Sodium TNP 03/07/19 05:21 Potassium 3.7 mmol/L (3.5-5.1) 03/07/19 05:21 Chloride 109 mmol/L (98-107) H 03/07/19 05:21 Carbon Dioxide 20.5 mmol/L (21-32) L 03/07/19 05:21 BUN 43 mg/dL (7-18) H 03/07/19 05:21 Creatinine 2.66 mg/dL (0.70-1.30) H 03/07/19 05:21 Est GFR (MDRD) Af Amer 30 (>60) L 03/07/19 05:21 Est GFR (MDRD) Non-Af 25 (>60) L 03/07/19 05:21 Glucose 99 mg/dL (65-99) 03/07/19 05:21 POC Glucose (mg/dL) 152 mg/dL (65-99) H 03/07/19 16:13 Calcium 8.6 mg/dL (8.5-10.1) 03/07/19 05:21 Corrected Calcium 9.7 mg/dL (8.5-10.1) 03/07/19 05:21 Magnesium 1.7 mg/dL (1.7-2.9) 03/04/19 11:41 Iron 49 ug/dL (50-175) L 03/05/19 04:18 Transferrin 146 mg/dL (202-364) L 03/05/19 04:18 Ferritin 132 ng/mL (26-388) 03/05/19 04:18 Total Bilirubin 0.20 mg/dL (0.2-1.0) 03/07/19 05:21 AST 17 Units/L (15-37) 03/07/19 05:21 ALT 35 Units/L (12-78) 03/07/19 05:21 Alkaline Phosphatase 39 Units/L (46-116) L 03/07/19 05:21 Creatine Kinase 67 Units/L (39-308) 03/05/19 04:18 CK-MB (CK-2) 1.2 ng/mL (0-4.0) 03/05/19 04:18 CK/CKMB % Calc 1.8 % (<4) 03/05/19 04:18 Troponin I 0.06 ng/mL (0-1.5) 03/05/19 04:18 B-Natriuretic Peptide 290 pg/mL (0-79) H 03/03/19 13:08 Total Protein 5.5 g/dL (6.4-8.2) L 03/07/19 05:21 Albumin 2.6 g/dL (3.4-5.0) L 03/07/19 05:21 Globulin 2.9 g/dL (2.5-4.5) 03/07/19 05:21 Albumin/Globulin Ratio 0.9 Ratio (1.1-2.1) L 03/07/19 05:21 Vitamin B12 1317 pg/mL (193-986) H 03/05/19 04:18 Folate 11.8 ng/mL (>8.6) 03/05/19 04:18 Specimen Type Clean catch urine 03/03/19 15:00 Urine Color Yellow (YELLOW) 03/03/19 15:00 Urine Appearance Clear (CLEAR) 03/03/19 15:00 Urine pH 7.0 (5.0 - 8.0) 03/03/19 15:00 Ur Specific [place] 1.010 (1.000-1.030) 03/03/19 15:00 Urine Protein 3+ (NEGATIVE) 03/03/19 15:00 Urine Glucose (UA) Negative (NEGATIVE) 03/03/19 15:00 Urine Ketones Negative (NEGATIVE) 03/03/19 15:00 Urine Occult Blood Negative (NEGATIVE) 03/03/19 15:00 Urine Nitrite Negative (NEGATIVE) 03/03/19 15:00 Urine Bilirubin Negative (NEGATIVE) 03/03/19 15:00 Urine Urobilinogen Normal (NORMAL) 03/03/19 15:00 Ur Leukocyte Esterase Negative (NEGATIVE) 03/03/19 15:00 Urine RBC 0-2 /HPF (NONE SEEN) 03/03/19 15:00 Urine WBC 0-2 /HPF (NONE SEEN) 03/03/19 15:00 Ur Squamous Epith Cells Rare /HPF (NEGATIVE) 03/03/19 15:00 Urine Bacteria Negative /HPF (NEGATIVE) 03/03/19 15:00 Ur Culture Indicated? No/not indicated 03/03/19 15:00 - Plan (1) Dyspnea Status: Acute Qualifiers: Dyspnea type: shortness of breath Qualified Code(s): R06.02 - Shortness of breath; R06.00 - Dyspnea, unspecified; R06.01 - Orthopnea Plan: CXR ON ADMISSION, BP CONTROL. CONTINUOUS CARDIAC MONITORING, PRN SUPPLEMENTAL O2. 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
[2019-03-07] MEDS: LIPITOR TAB 40 MG PO SCH (21:07)
[2019-03-07] MEDS: PROSCAR PO SCH (21:08)
[2019-03-08] MEDS: MORPHINE SULFATE INJ 2 MG INJ IVP PRN ×2 (00:47→12:10)
[2019-03-08] MEDS: SNACK - Diabetic Appropriate PO SCH ×2 (05:51→20:00)
[2019-03-08] MEDS: APRESOLINE TAB 25 MG PO SCH ×3 (06:05→21:17)
--- NOTE | 2019-03-08 06:14 | RAD ---
HISTORY: Shortness of breath Study: Chest AP portable Comparison: 03/07/2019, 03/06/2019 Findings: The patient is status post median sternotomy. The heart remains enlarged. No congestive heart failure is noted. No infiltrates or pleural effusions are identified. The bony thorax is unremarkable. IMPRESSION: Continued cardiomegaly without congestive heart failure No infiltrates Reported By:
[2019-03-08 06:19] LABS: BASOPHILS # (AUTO) 0.1 X10^3/uL (0.0-0.1); BASOPHILS % (AUTO) 1.1 % (0.2-1.0); EOSINOPHILS # (AUTO) 0.4 x10^3/uL (0.0-0.2); EOSINOPHILS % (AUTO) 6.2 % (0.9-2.9); HEMATOCRIT 24.1 % (42.0-54.0); HEMOGLOBIN 8.2 g/dL (13.5-18.0); LYMPHOCYTES # (AUTO) 0.9 X10^3/uL (1.3-2.9); LYMPHOCYTES % (AUTO) 15.4 % (21.0-51.0); MEAN CORPUSCULAR HEMOGLOBIN 31.9 pg (27.0-34.0); MEAN CORPUSCULAR HGB CONC 34.1 g/dL (33.0-35.0); MEAN CORPUSCULAR VOLUME 93.8 fL (80.0-100.0); MEAN PLATELET VOLUME 8.7 fL (7.4-11.0); MONOCYTES # (AUTO) 0.6 x10^3/uL (0.3-0.8); MONOCYTES % (AUTO) 10.1 % (0.0-13.0); NEUTROPHILS # (AUTO) 3.9 x10^3/uL (2.2-4.8); NEUTROPHILS % (AUTO) 67.2 % (42.0-75.0); PLATELET COUNT 124 X10^3/uL (150.0-450.0); RED BLOOD COUNT 2.57 X10^6/uL (4.7-6.0); RED CELL DISTRIBUTION WIDTH 15.5 % (11.6-16.5); WHITE BLOOD COUNT 5.7 X10^3/uL (3.6-10.0)
[2019-03-08 06:32] LABS: ALANINE AMINOTRANSFERASE 32 Units/L (12-78); ALBUMIN 2.8 g/dL (3.4-5.0); ALKALINE PHOSPHATASE 42 Units/L (46-116); ASPARTATE AMINO TRANSFERASE 14 Units/L (15-37); BLOOD UREA NITROGEN 43 mg/dL (7-18); CALCIUM 8.8 mg/dL (8.5-10.1); CARBON DIOXIDE 22.5 mmol/L (21-32); CHLORIDE 108 mmol/L (98-107); COR CA(FOR HYPOALB) 9.8 mg/dL (8.5-10.1); CREATININE 2.51 mg/dL (0.70-1.30); SODIUM 141 mmol/L (136-145); TOTAL PROTEIN 5.9 g/dL (6.4-8.2); eGFR NON BLACK RACES 26 (>60)
[2019-03-08] MEDS: PROCARDIA XL PO SCH (08:34)
[2019-03-08] MEDS: COREG TAB 12.5 MG PO SCH (08:34)
[2019-03-08] MEDS: ASPIRIN EC 81 MG PO SCH (08:35)
[2019-03-08] MEDS: LASIX PO SCH (08:35)
[2019-03-08] MEDS: PROTONIX TAB 40 MG PO SCH (08:35)
[2019-03-08] MEDS: PLAVIX PO SCH (08:37)
[2019-03-08] MEDS: LOVENOX INJ 30 MG SYR SC SCH (08:37)
[2019-03-08] MEDS: DUONEB 0.5 MG/3 MG NEB SCH ×4 (08:50→20:34)
--- NOTE | 2019-03-08 18:52 | PCM.PROG ---
Progress Note - Progress Note for Day of Date of Exam: 03/07/19 - Subjective Subjective: WAS ADMITTED ON 03/03/19 FOR RENAL FAILURE, SHORTNESS OF BREATH, AND CONGESTIVE HEART FAILURE. TODAY, HE IS ALERT AND ORIENTED, LYING IN BED ON MORNING ROUNDS. HE CONTINUES WITH SHORTNESS OF BREATH TODAY. ON EXAMINATION, HEART IS REGULAR IN RATE AND RHYTHM. BILATERAL LUNGS ARE NOTED WITH DIMINISHED LUNG SOUNDS THROUGHOUT. ABDOMEN IS ROUND, SOFT, AND NOTED WITH NORMAL BOWEL SOUNDS IN ALL QUADRANTS. HIS VITALS THIS MORNING ARE: 98.4-26-65-100-140/65. LABS WERE OBTAINED. ABNORMAL LAB VALUES INCLUDE THE FOLLOWING: RBC 2.53, HGB 8.1, HCT 23.8, PLT COUNT 123, CHLORIDE 109, CARBON DIOXIDE 20.5, BUN 43, CREATININE 2.66, ALK PHOS 39, TOTAL PROTEIN 5.5, ALBUMIN 2.6. A CHEST XRAY WAS OBTAINED AND REVEALED: Stable cardiomegaly without acute findings. SHE IS CURRENTLY RECEIVING NORMAL SALINE AT KVO, RESPIRATORY TX, MORPHINE 1MG IV Q6H, LOVENOX 30MG SC DAILY, AND HOME MEDICATIONS WERE RESUMED. WE WILL CONTINUE WITH CURRENT PLAN OF CARE TODAY. OTHERWISE, WE PLAN TO FOLLOW UP WITH AM LABS AND CONTINUE TO MONITOR. - Past Medical Family Social History Past Med/Fam/Surg Hx: No changes since H&P Allergies: Allergies Iodinated Contrast- Oral and IV Dye Allergy (Verified 02/28/19 17:05) ketorolac [From Toradol] Allergy (Verified 11/12/18 15:15) lisinopril Allergy (Verified 11/12/18 15:15) - Review of Systems ROS: No change since H&P - Vital Signs and I&O's Vital Signs: Temperature 97.9 F Pulse Rate [Apical] 72 Pulse Rate 63 Respiratory Rate 26 Blood Pressure [Right Arm] 149/69 Blood Pressure [Left Arm] 176/80 Blood Pressure 161/70 O2 Sat by Pulse Oximetry 100 Intake and Output: Intake & Output 03/06/19 03/07/19 03/08/19 03/09/19 11:59 11:59 11:59 11:59 Intake Total 1517 / 1517 1490 / 1490 1690 / 1690 188 / 188 Output Total 1575 / 1575 1075 / 1075 2024 / 2024 800 / 800 Balance -58 / -58 415 / 415 -335 / -335 -612 / -612 - Physical Exam Oriented: Normal, Other (TACHYPNEA) Eyes: Normal Nose: Normal Throat: Normal Respiratory: Diminished Cardiovascular: Normal, Murmur : Normal Auscultation: Bowel Sounds: Normal Tenderness: Normal Skin: Decreased Turgur Musculoskeletal: Right, Left, Knee Psychiatric: Anxiety Mood Description: Anxious Affect: Anxious Speech Pattern: Clear, Appropriate - Laboratory and Diagnostics Result Diagrams: 03/08/19 05:35 03/08/19 05:35 Labs: Laboratory WBC 5.7 X10^3/uL (3.6-10.0) 03/08/19 05:35 RBC 2.57 X10^6/uL (4.7-6.0) L 03/08/19 05:35 Hgb 8.2 g/dL (13.5-18.0) L 03/08/19 05:35 Hct 24.1 % (42.0-54.0) L 03/08/19 05:35 MCV 93.8 fL (80.0-100.0) 03/08/19 05:35 MCH 31.9 pg (27.0-34.0) 03/08/19 05:35 MCHC 34.1 g/dL (33.0-35.0) 03/08/19 05:35 RDW 15.5 % (11.6-16.5) 03/08/19 05:35 Plt Count 124 X10^3/uL (150.0-450.0) L 03/08/19 05:35 MPV 8.7 fL (7.4-11.0) 03/08/19 05:35 Neut % (Auto) 67.2 % (42.0-75.0) 03/08/19 05:35 Lymph % (Auto) 15.4 % (21.0-51.0) L 03/08/19 05:35 Rich % (Auto) 10.1 % (0.0-13.0) 03/08/19 05:35 Eos % (Auto) 6.2 % (0.9-2.9) H 03/08/19 05:35 Baso % (Auto) 1.1 % (0.2-1.0) H 03/08/19 05:35 Neut # (Auto) 3.9 x10^3/uL (2.2-4.8) 03/08/19 05:35 Lymph # (Auto) 0.9 X10^3/uL (1.3-2.9) L 03/08/19 05:35 Rich # (Auto) 0.6 x10^3/uL (0.3-0.8) 03/08/19 05:35 Eos # (Auto) 0.4 x10^3/uL (0.0-0.2) H 03/08/19 05:35 Baso # (Auto) 0.1 X10^3/uL (0.0-0.1) 03/08/19 05:35 Absolute Nucleated RBC 0.0 /100WBC 03/08/19 05:35 Sample Site Rbra 03/06/19 05:17 ABG pH 7.490 (7.35-7.45) H 03/06/19 05:17 ABG pCO2 28.0 mmHg (35.0-45.0) L 03/06/19 05:17 ABG pO2 123.0 mmHg (80.0-100.0) H 03/06/19 05:17 ABG HCO3 21.3 mmol/L (22-26) L 03/06/19 05:17 ABG O2 Saturation 99.0 % (90-100) 03/06/19 05:17 ABG Base Excess -1.0 mmol/L (-2.0-2.0) 03/06/19 05:17 Mitch Test Na 03/06/19 05:17 A-a Gradient 42.0 mmHg 03/06/19 05:17 FiO2 28.0 03/06/19 05:17 Blood Gas Comments Maria Antonia abg well-mtf 03/06/19 05:17 Sodium 141 mmol/L (136-145) 03/08/19 05:35 Corrected Sodium TNP 03/08/19 05:35 Potassium 4.2 mmol/L (3.5-5.1) 03/08/19 05:35 Chloride 108 mmol/L (98-107) H 03/08/19 05:35 Carbon Dioxide 22.5 mmol/L (21-32) 03/08/19 05:35 BUN 43 mg/dL (7-18) H 03/08/19 05:35 Creatinine 2.51 mg/dL (0.70-1.30) H 03/08/19 05:35 Est GFR (MDRD) Af Amer 32 (>60) L 03/08/19 05:35 Est GFR (MDRD) Non-Af 26 (>60) L 03/08/19 05:35 Glucose 99 mg/dL (65-99) 03/08/19 05:35 POC Glucose (mg/dL) 136 mg/dL (65-99) H 03/08/19 17:50 Calcium 8.8 mg/dL (8.5-10.1) 03/08/19 05:35 Corrected Calcium 9.8 mg/dL (8.5-10.1) 03/08/19 05:35 Magnesium 1.7 mg/dL (1.7-2.9) 03/04/19 11:41 Iron 49 ug/dL (50-175) L 03/05/19 04:18 Transferrin 146 mg/dL (202-364) L 03/05/19 04:18 Ferritin 132 ng/mL (26-388) 03/05/19 04:18 Total Bilirubin 0.20 mg/dL (0.2-1.0) 03/08/19 05:35 AST 14 Units/L (15-37) L 03/08/19 05:35 ALT 32 Units/L (12-78) 03/08/19 05:35 Alkaline Phosphatase 42 Units/L (46-116) L 03/08/19 05:35 Creatine Kinase 67 Units/L (39-308) 03/05/19 04:18 CK-MB (CK-2) 1.2 ng/mL (0-4.0) 03/05/19 04:18 CK/CKMB % Calc 1.8 % (<4) 03/05/19 04:18 Troponin I 0.06 ng/mL (0-1.5) 03/05/19 04:18 B-Natriuretic Peptide 290 pg/mL (0-79) H 03/03/19 13:08 Total Protein 5.9 g/dL (6.4-8.2) L 03/08/19 05:35 Albumin 2.8 g/dL (3.4-5.0) L 03/08/19 05:35 Globulin 3.1 g/dL (2.5-4.5) 03/08/19 05:35 Albumin/Globulin Ratio 0.9 Ratio (1.1-2.1) L 03/08/19 05:35 Vitamin B12 1317 pg/mL (193-986) H 03/05/19 04:18 Folate 11.8 ng/mL (>8.6) 03/05/19 04:18 Specimen Type Clean catch urine 03/03/19 15:00 Urine Color Yellow (YELLOW) 03/03/19 15:00 Urine Appearance Clear (CLEAR) 03/03/19 15:00 Urine pH 7.0 (5.0 - 8.0) 03/03/19 15:00 Ur Specific [place] 1.010 (1.000-1.030) 03/03/19 15:00 Urine Protein 3+ (NEGATIVE) 03/03/19 15:00 Urine Glucose (UA) Negative (NEGATIVE) 03/03/19 15:00 Urine Ketones Negative (NEGATIVE) 03/03/19 15:00 Urine Occult Blood Negative (NEGATIVE) 03/03/19 15:00 Urine Nitrite Negative (NEGATIVE) 03/03/19 15:00 Urine Bilirubin Negative (NEGATIVE) 03/03/19 15:00 Urine Urobilinogen Normal (NORMAL) 03/03/19 15:00 Ur Leukocyte Esterase Negative (NEGATIVE) 03/03/19 15:00 Urine RBC 0-2 /HPF (NONE SEEN) 03/03/19 15:00 Urine WBC 0-2 /HPF (NONE SEEN) 03/03/19 15:00 Ur Squamous Epith Cells Rare /HPF (NEGATIVE) 03/03/19 15:00 Urine Bacteria Negative /HPF (NEGATIVE) 03/03/19 15:00 Ur Culture Indicated? No/not indicated 03/03/19 15:00 - Plan (1) Dyspnea Status: Acute Qualifiers: Dyspnea type: shortness of breath Qualified Code(s): R06.02 - Shortness of breath; R06.00 - Dyspnea, unspecified; R06.01 - Orthopnea Plan: CXR ON ADMISSION, BP CONTROL. CONTINUOUS CARDIAC MONITORING, PRN SUPPLEMENTAL O2. 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
[2019-03-08] MEDS: NS 1000 ML 1,000 ML IV SCH (20:45)
[2019-03-08] MEDS: COREG TAB 25 MG PO SCH (21:16)
[2019-03-08] MEDS: PROSCAR PO SCH (21:16)
[2019-03-08] MEDS: LIPITOR TAB 40 MG PO SCH (21:26)
[2019-03-09] MEDS: APRESOLINE TAB 25 MG PO SCH ×3 (05:36→21:02)
[2019-03-09 06:01] LABS: BASOPHILS # (AUTO) 0.1 X10^3/uL (0.0-0.1); BASOPHILS % (AUTO) 1.1 % (0.2-1.0); EOSINOPHILS # (AUTO) 0.3 x10^3/uL (0.0-0.2); EOSINOPHILS % (AUTO) 6.3 % (0.9-2.9); HEMATOCRIT 23.4 % (42.0-54.0); LYMPHOCYTES # (AUTO) 0.8 X10^3/uL (1.3-2.9); LYMPHOCYTES % (AUTO) 15.7 % (21.0-51.0); MEAN CORPUSCULAR HEMOGLOBIN 32.3 pg (27.0-34.0); MEAN CORPUSCULAR HGB CONC 34.3 g/dL (33.0-35.0); MEAN CORPUSCULAR VOLUME 94.1 fL (80.0-100.0); MEAN PLATELET VOLUME 8.7 fL (7.4-11.0); MONOCYTES # (AUTO) 0.6 x10^3/uL (0.3-0.8); MONOCYTES % (AUTO) 11.1 % (0.0-13.0); NEUTROPHILS # (AUTO) 3.4 x10^3/uL (2.2-4.8); NEUTROPHILS % (AUTO) 65.8 % (42.0-75.0); PLATELET COUNT 119 X10^3/uL (150.0-450.0); RED BLOOD COUNT 2.49 X10^6/uL (4.7-6.0); RED CELL DISTRIBUTION WIDTH 15.8 % (11.6-16.5); WHITE BLOOD COUNT 5.2 X10^3/uL (3.6-10.0)
[2019-03-09] MEDS: NS 1000 ML 1,000 ML IV SCH ×2 (06:13→21:09)
[2019-03-09 06:18] LABS: ALANINE AMINOTRANSFERASE 30 Units/L (12-78); ALBUMIN 2.7 g/dL (3.4-5.0); ALKALINE PHOSPHATASE 41 Units/L (46-116); ASPARTATE AMINO TRANSFERASE 14 Units/L (15-37); BLOOD UREA NITROGEN 42 mg/dL (7-18); CALCIUM 8.7 mg/dL (8.5-10.1); CHLORIDE 108 mmol/L (98-107); COR CA(FOR HYPOALB) 9.7 mg/dL (8.5-10.1); CREATININE 2.33 mg/dL (0.70-1.30); SODIUM 140 mmol/L (136-145); TOTAL PROTEIN 5.8 g/dL (6.4-8.2); eGFR NON BLACK RACES 29 (>60)
--- NOTE | 2019-03-09 07:50 | RAD ---
HISTORY: Shortness of breath Study: Chest AP portable Comparison: 03/08/2019 Findings: The patient is status post median sternotomy and CABG. The heart remains enlarged. No congestive heart failure is noted. No infiltrates or pleural effusions are identified. The bony thorax is unremarkable. IMPRESSION: Continued cardiomegaly without congestive heart failure No acute infiltrates Reported By:
[2019-03-09] MEDS: LOVENOX INJ 30 MG SYR SC SCH (08:39)
[2019-03-09] MEDS: PLAVIX PO SCH (08:41)
[2019-03-09] MEDS: COREG TAB 25 MG PO SCH ×2 (08:41→21:02)
[2019-03-09] MEDS: LASIX PO SCH (08:41)
[2019-03-09] MEDS: PROCARDIA XL PO SCH (08:41)
[2019-03-09] MEDS: PROTONIX TAB 40 MG PO SCH (08:41)
[2019-03-09] MEDS: ASPIRIN EC 81 MG PO SCH (08:41)
[2019-03-09] MEDS: MILK OF MAGNESIA PO SCH (08:42)
[2019-03-09] MEDS: DUONEB 0.5 MG/3 MG NEB SCH ×4 (09:10→20:19)
[2019-03-09] MEDS ORDERED: DEXFERRUM or INFED 25 MG in NS 100 ML IV 100 ML IV NR (10:00)
[2019-03-09] MEDS ORDERED: DEXFERRUM or INFED 250 MG in NS 500 ML IV 500 ML IV NR (11:00)
[2019-03-09] MEDS ORDERED: DEXFERRUM or INFED 975 MG in NS 500 ML IV 500 ML IV NR (12:00)
[2019-03-09] MEDS: SNACK - Diabetic Appropriate PO SCH (20:00)
[2019-03-09] MEDS: PROSCAR PO SCH (21:02)
[2019-03-09] MEDS: LIPITOR TAB 40 MG PO SCH (21:03)
[2019-03-10] MEDS: APRESOLINE TAB 25 MG PO SCH ×2 (05:49→13:59)
[2019-03-10 06:16] LABS: BASOPHILS # (AUTO) 0.1 X10^3/uL (0.0-0.1); BASOPHILS % (AUTO) 1.4 % (0.2-1.0); EOSINOPHILS # (AUTO) 0.3 x10^3/uL (0.0-0.2); EOSINOPHILS % (AUTO) 5.5 % (0.9-2.9); HEMATOCRIT 22.5 % (42.0-54.0); HEMOGLOBIN 7.8 g/dL (13.5-18.0); LYMPHOCYTES # (AUTO) 0.9 X10^3/uL (1.3-2.9); LYMPHOCYTES % (AUTO) 18.3 % (21.0-51.0); MEAN CORPUSCULAR HEMOGLOBIN 32.5 pg (27.0-34.0); MEAN CORPUSCULAR HGB CONC 34.6 g/dL (33.0-35.0); MEAN PLATELET VOLUME 8.8 fL (7.4-11.0); MONOCYTES # (AUTO) 0.5 x10^3/uL (0.3-0.8); MONOCYTES % (AUTO) 10.6 % (0.0-13.0); NEUTROPHILS # (AUTO) 3.2 x10^3/uL (2.2-4.8); NEUTROPHILS % (AUTO) 64.2 % (42.0-75.0); PLATELET COUNT 109 X10^3/uL (150.0-450.0); RED BLOOD COUNT 2.39 X10^6/uL (4.7-6.0); RED CELL DISTRIBUTION WIDTH 16.2 % (11.6-16.5); WHITE BLOOD COUNT 4.9 X10^3/uL (3.6-10.0)
[2019-03-10 06:20] LABS: ALBUMIN 2.6 g/dL (3.4-5.0); CALCIUM 8.9 mg/dL (8.5-10.1); CARBON DIOXIDE 22.6 mmol/L (21-32); CREATININE 2.18 mg/dL (0.70-1.30); TOTAL PROTEIN 5.6 g/dL (6.4-8.2)
[2019-03-10 06:53] LABS: HYPOCHROMASIA SLIGHT; PLATELET MORPHOLOGY COMMENT NORMAL (NORMAL)
[2019-03-10] MEDS: DUONEB 0.5 MG/3 MG NEB SCH ×2 (09:08→12:21)
[2019-03-10] MEDS: PROTONIX TAB 40 MG PO SCH (09:12)
[2019-03-10] MEDS: PROCARDIA XL PO SCH (09:12)
[2019-03-10] MEDS: MILK OF MAGNESIA PO SCH (09:13)
[2019-03-10] MEDS: ASPIRIN EC 81 MG PO SCH (09:13)
[2019-03-10] MEDS: LASIX PO SCH (09:13)
[2019-03-10] MEDS: COREG TAB 25 MG PO SCH (09:13)
[2019-03-10] MEDS: LOVENOX INJ 30 MG SYR SC SCH (09:14)
[2019-03-10] MEDS: PLAVIX PO SCH (09:14)
[2019-03-10 15:46] VITALS: BP 156/72
== END 2019-03-10 15:40 | DRG 204 ==
LOC: ICU 12:26
PROVIDERS: ADMIT Internal Medicine; ATTEND Internal Medicine
DX: I25.10 Atherosclerotic heart disease of native coronary artery without angina pectoris; Z98.890 Other specified postprocedural states; Z99.2 Dependence on renal dialysis; E87.3 Alkalosis; E11.65 Type 2 diabetes mellitus with hyperglycemia; R06.03 Acute respiratory distress; I13.0 Hypertensive heart and chronic kidney disease with heart failure and stage 1 through stage 4 chronic kidney disease, or unspecified chronic kidney disease; R94.31 Abnormal electrocardiogram [ECG] [EKG]; E78.2 Mixed hyperlipidemia; N17.8 Other acute kidney failure; E11.22 Type 2 diabetes mellitus with diabetic chronic kidney disease; R07.89 Other chest pain; K21.9 Gastro-esophageal reflux disease without esophagitis; R00.0 Tachycardia, unspecified; J44.9 Chronic obstructive pulmonary disease, unspecified; N18.6 End stage renal disease; N40.0 Benign prostatic hyperplasia without lower urinary tract symptoms; R26.89 Other abnormalities of gait and mobility; I50.43 Acute on chronic combined systolic (congestive) and diastolic (congestive) heart failure
CPT/HCPCS: 36415; 36600; 71010; 71045; 78582; 80053; 81001; 82550; 82553; 82607; 82728; 82746; 82803; 83540; 83735; 83880; 84466; 84484; 85025; 93005; 94640; 97110; 97116; 97162; 97166; 97530; 97535; A4222; A9540; A9567; C9113; S0138; J1650; J1750; J1815; J2060; J2270; J7030; J7040; J7050; J7620

== ENCOUNTER 2019-03-23 11:38 | Inpatient (IN) ==
[2019-03-23] MEDS ORDERED: VISTARIL PO ONE (15:27)
[2019-03-23] MEDS ORDERED: APRESOLINE TAB 25 MG PO ONE ×2 (16:30→21:30)
[2019-03-23] MEDS ORDERED: NITRODUR PATCH 0.4 MG/HR TD ONE (18:41)
[2019-03-23] MEDS ORDERED: COREG TAB 25 MG PO ONE (21:30)
[2019-03-23] MEDS ORDERED: LIPITOR TAB 40 MG PO ONE (21:30)
[2019-03-23] MEDS ORDERED: PROSCAR PO ONE (21:38)
[2019-03-23] MEDS ORDERED: CATAPRES-TTS-3 TD ONE (23:40)
[2019-03-23] MEDS ORDERED: NORMODYNE INJ 20 MG VIAL IVP ONE (23:45)
[2019-03-24] MEDS ORDERED: APRESOLINE TAB 25 MG ONE ×4 (08:00→22:00)
[2019-03-24] MEDS ORDERED: ASPIRIN EC 81 MG PO ONE (09:00)
[2019-03-24] MEDS ORDERED: LASIX IVP ONE (09:00)
[2019-03-24] MEDS ORDERED: PEPCID TAB 20 MG ONE (09:00)
[2019-03-24] MEDS ORDERED: HumuLIN R ONE (09:00)
[2019-03-24] MEDS ORDERED: MICRO K EXTEN CAP 10 MEQ PO ONE (09:00)
[2019-03-24] MEDS ORDERED: PLAVIX ONE (09:00)
[2019-03-24] MEDS ORDERED: FLOMAX ONE (09:00)
[2019-03-24] MEDS ORDERED: HEMOCYTE-PLUS ONE (09:00)
[2019-03-24] MEDS ORDERED: PROCARDIA XL ONE (09:00)
[2019-03-24] MEDS ORDERED: COREG TAB 25 MG ONE ×2 (10:00→22:00)
[2019-03-24] MEDS ORDERED: ZOCOR TAB 40 MG ONE (21:00)
[2019-03-24] MEDS ORDERED: PROSCAR ONE (21:00)
[2019-03-25] MEDS ORDERED: NORCO 5/325 MG TAB PO ONE (00:10)
[2019-03-25] MEDS ORDERED: APRESOLINE TAB 25 MG PO ONE ×3 (06:00→20:00)
[2019-03-25] MEDS ORDERED: PROTONIX TAB 40 MG PO ONE (08:00)
[2019-03-25] MEDS ORDERED: HEMOCYTE-PLUS PO ONE (08:00)
[2019-03-25] MEDS ORDERED: COREG TAB 25 MG PO ONE (08:00)
[2019-03-25] MEDS ORDERED: PROCARDIA XL PO ONE (08:00)
[2019-03-25] MEDS ORDERED: PROSCAR PO ONE (08:00)
[2019-03-25] MEDS ORDERED: FLOMAX PO ONE (08:00)
[2019-03-25] MEDS ORDERED: MICRO K EXTEN CAP 10 MEQ PO ONE (08:00)
[2019-03-25] MEDS ORDERED: LASIX PO ONE (08:00)
[2019-03-25] MEDS ORDERED: PEPCID TAB 20 MG PO ONE (08:00)
[2019-03-25] MEDS ORDERED: ASPIRIN EC 81 MG PO ONE (08:00)
[2019-03-25] MEDS ORDERED: PLAVIX PO ONE (08:00)
[2019-03-25] MEDS ORDERED: HumuLIN R SUBCUT ONE (21:00)
[2019-03-25] MEDS ORDERED: LIPITOR TAB 40 MG PO ONE (21:00)
[2019-03-25] MEDS ORDERED: NS 1000 ML IV ONE (23:00)
[2019-03-26 06:53] LABS: BASOPHILS % (AUTO) 0.6 % (0.2-1.0); EOSINOPHILS # (AUTO) 0.1 x10^3/uL (0.0-0.2); EOSINOPHILS % (AUTO) 1.4 % (0.9-2.9); HEMATOCRIT 20.4 % (42.0-54.0); LYMPHOCYTES # (AUTO) 0.6 X10^3/uL (1.3-2.9); LYMPHOCYTES % (AUTO) 9.2 % (21.0-51.0); MEAN CORPUSCULAR HEMOGLOBIN 32.9 pg (27.0-34.0); MEAN CORPUSCULAR HGB CONC 34.5 g/dL (33.0-35.0); MEAN CORPUSCULAR VOLUME 95.4 fL (80.0-100.0); MEAN PLATELET VOLUME 8.8 fL (7.4-11.0); MONOCYTES # (AUTO) 0.6 x10^3/uL (0.3-0.8); MONOCYTES % (AUTO) 9.8 % (0.0-13.0); NEUTROPHILS # (AUTO) 4.8 x10^3/uL (2.2-4.8); PLATELET COUNT 128 X10^3/uL (150.0-450.0); RED BLOOD COUNT 2.14 X10^6/uL (4.7-6.0); RED CELL DISTRIBUTION WIDTH 17.6 % (11.6-16.5)
[2019-03-26 07:10] LABS: ALANINE AMINOTRANSFERASE 46 Units/L (12-78); ALBUMIN 2.8 g/dL (3.4-5.0); ALKALINE PHOSPHATASE 46 Units/L (46-116); ASPARTATE AMINO TRANSFERASE 20 Units/L (15-37); BLOOD UREA NITROGEN 54 mg/dL (7-18); CALCIUM 8.4 mg/dL (8.5-10.1); CARBON DIOXIDE 21.3 mmol/L (21-32); CHLORIDE 112 mmol/L (98-107); COR CA(FOR HYPOALB) 9.4 mg/dL (8.5-10.1); CREATININE 2.45 mg/dL (0.70-1.30); SODIUM 146 mmol/L (136-145); TOTAL PROTEIN 5.7 g/dL (6.4-8.2); eGFR NON BLACK RACES 27 (>60)
[2019-03-26 07:12] LABS: BLOOD UREA NITROGEN 55 mg/dL (7-18); CARBON DIOXIDE 21.2 mmol/L (21-32); CHLORIDE 110 mmol/L (98-107); CREATININE 2.66 mg/dL (0.70-1.30); SODIUM 141 mmol/L (136-145); eGFR NON BLACK RACES 25 (>60)
[2019-03-26 07:13] LABS: ALANINE AMINOTRANSFERASE 63 Units/L (12-78); ALBUMIN 2.7 g/dL (3.4-5.0); ALKALINE PHOSPHATASE 46 Units/L (46-116); ASPARTATE AMINO TRANSFERASE 26 Units/L (15-37); CALCIUM 8.3 mg/dL (8.5-10.1); COR CA(FOR HYPOALB) 9.3 mg/dL (8.5-10.1); TOTAL PROTEIN 5.5 g/dL (6.4-8.2)
[2019-03-26 07:15] LABS: RED BLOOD COUNT 1.92 X10^6/uL (4.7-6.0); WHITE BLOOD COUNT 4.8 X10^3/uL (3.6-10.0)
[2019-03-26 07:16] LABS: HEMATOCRIT 18.4 % (42.0-54.0); HEMOGLOBIN 6.2 g/dL (13.5-18.0)
[2019-03-26] MEDS ORDERED: ANTIVERT TAB 25 MG PO PRN (07:16)
[2019-03-26 07:17] LABS: BASOPHILS % (AUTO) 0.8 % (0.2-1.0); EOSINOPHILS # (AUTO) 0.2 x10^3/uL (0.0-0.2); EOSINOPHILS % (AUTO) 4.4 % (0.9-2.9); LYMPHOCYTES # (AUTO) 0.6 X10^3/uL (1.3-2.9); LYMPHOCYTES % (AUTO) 13.1 % (21.0-51.0); MEAN CORPUSCULAR HEMOGLOBIN 32.2 pg (27.0-34.0); MEAN CORPUSCULAR HGB CONC 33.5 g/dL (33.0-35.0); MEAN CORPUSCULAR VOLUME 96.2 fL (80.0-100.0); MEAN PLATELET VOLUME 8.8 fL (7.4-11.0); MONOCYTES # (AUTO) 0.5 x10^3/uL (0.3-0.8); NEUTROPHILS # (AUTO) 3.4 x10^3/uL (2.2-4.8); NEUTROPHILS % (AUTO) 70.7 % (42.0-75.0); PLATELET COUNT 129 X10^3/uL (150.0-450.0); RED CELL DISTRIBUTION WIDTH 16.9 % (11.6-16.5)
[2019-03-26] MEDS ORDERED: NORCO 5/325 MG TAB PO PRN (07:17)
[2019-03-26] MEDS ORDERED: NITROSTAT SL PRN (07:17)
[2019-03-26 07:18] LABS: CARBON DIOXIDE 22.5 mmol/L (21-32); CREATININE 2.68 mg/dL (0.70-1.30)
[2019-03-26 07:19] LABS: CALCIUM 8.2 mg/dL (8.5-10.1)
[2019-03-26] MEDS ORDERED: NORMODYNE INJ 20 MG VIAL IVP PRN (07:19)
[2019-03-26 07:20] LABS: BLOOD UREA NITROGEN 56 mg/dL (7-18); CALCIUM 8.3 mg/dL (8.5-10.1); CARBON DIOXIDE 23.3 mmol/L (21-32); CHLORIDE 111 mmol/L (98-107); CREATININE 2.48 mg/dL (0.70-1.30); SODIUM 143 mmol/L (136-145); eGFR NON BLACK RACES 27 (>60)
[2019-03-26 07:21] LABS: RED BLOOD COUNT 2.18 X10^6/uL (4.7-6.0); WHITE BLOOD COUNT 5.4 X10^3/uL (3.6-10.0)
[2019-03-26 07:23] LABS: BASOPHILS % (AUTO) 0.8 % (0.2-1.0); EOSINOPHILS # (AUTO) 0.2 x10^3/uL (0.0-0.2); EOSINOPHILS % (AUTO) 4.5 % (0.9-2.9); HEMATOCRIT 20.6 % (42.0-54.0); HEMOGLOBIN 6.9 g/dL (13.5-18.0); LYMPHOCYTES # (AUTO) 0.7 X10^3/uL (1.3-2.9); LYMPHOCYTES % (AUTO) 13.4 % (21.0-51.0); MEAN CORPUSCULAR HEMOGLOBIN 31.8 pg (27.0-34.0); MEAN CORPUSCULAR HGB CONC 33.7 g/dL (33.0-35.0); MEAN CORPUSCULAR VOLUME 94.5 fL (80.0-100.0); MEAN PLATELET VOLUME 8.5 fL (7.4-11.0); MONOCYTES # (AUTO) 0.7 x10^3/uL (0.3-0.8); MONOCYTES % (AUTO) 12.6 % (0.0-13.0); NEUTROPHILS # (AUTO) 3.7 x10^3/uL (2.2-4.8); NEUTROPHILS % (AUTO) 68.7 % (42.0-75.0); PLATELET COUNT 126 X10^3/uL (150.0-450.0); RED CELL DISTRIBUTION WIDTH 16.7 % (11.6-16.5)
[2019-03-26 07:56] LABS: PLATELET MORPHOLOGY COMMENT NORMAL (NORMAL)
[2019-03-26 07:57] LABS: ANISOCYTOSIS 1+; HYPOCHROMASIA 1+
[2019-03-26] MEDS ORDERED: HumuLIN R SUBCUT PRN (08:00)
--- NOTE | 2019-03-26 15:11 | DR.H&P ---
H&P - History & Physical for Day of: H&P Date: 03/23/19 - Chief Complaint Chief Complaint: Anemia Hgb 6.4 - History of Present Illness History of Present Illness: the patient is an 81-year-old BM who is a resident of [facility]. Patient has history of chronic anemia. Hgb today noted to be 6.4. Patient was in process of being worked up for iron transfusion. Patient denies obvious sign of GI bleed. - Past Medical History Past Medical History: Coronary Artery Disease, Hypertension, Dyslipidemia, Diabetes, COPD, GERD, Arthritis Additional Medical History: Prostate Cancer, Bronchitis, Constipation, chronic anemia - Past Surgical History Surgical History: Angioplasty/Stents, CABG/Valve Surgery - Family History Family Medical History: Diabetes Mellitus, Cancer, Coronary Artery Disease - Social History Does patient currently use any type of tobacco product: No Have you used tobacco products in the last 12 months: No Type of Tobacco Use: None Does any household member use tobacco: No Alcohol Use: None Drug Use: None - Medications Home Medications: Iodinated Contrast- Oral and IV Dye Allergy (Verified 02/28/19 17:05) ketorolac [From Toradol] Allergy (Verified 11/12/18 15:15) lisinopril Allergy (Verified 11/12/18 15:15) - Review of Systems Constitutional: Malaise Eyes: No Symptoms Reported ENT: No Symptoms Reported Respiratory: No Symptoms Reported Cardiovascular: No Symptoms Reported Gastrointestinal: No Symptoms Reported Genitourinary: No Symptoms Reported Musculoskeletal: No Symptoms Reported Skin: No Symptoms Reported Neurological: No Symptoms Reported - Physical Exam Vital Signs: Blood Pressure [Right Arm] 149/69 Blood Pressure [Left Arm] 176/80 Blood Pressure 156/72 Oriented: Normal Eyes: Normal Ear: Normal Nose: Normal Throat: Normal Respiratory: Clear Throughout Cardiovascular: Normal : Normal Auscultation: Bowel Sounds: Normal Palpation: Normal Tenderness: Normal Skin: Normal Musculoskeletal: Normal Psychiatric: Normal Mood Description: Calm Affect: Normal Speech Pattern: Clear - Assessment/Plan (1) Anemia Qualifiers: Anemia type: other cause Other causes of anemia: other cause, not classified Qualified Code(s): D64.89 - Other specified anemias Status: Chronic Plan: type and cross 2 units and transfuse. Monitor CBC. Iron panel profile (2) Hypertension, uncontrolled Status: Chronic Plan: monitor blood pressure. Home meds - Allergies Allergies/Adverse Reactions: Allergies Allergy/AdvReac Type Severity Reaction Status Date / Time Iodinated Contrast- Oral and Allergy Verified 02/28/19 17:05 IV Dye ketorolac [From Toradol] Allergy Verified 11/12/18 15:15 lisinopril Allergy Verified 11/12/18 15:15
--- NOTE | 2019-03-26 15:17 | PCM.PROG ---
Progress Note - Progress Note for Day of Date of Exam: 03/24/19 - Subjective Subjective: the patient is an 81-year-old black male resident of [facility] who was admitted secondary to anemia. Patient has had 1 unit of packed red blood cells with hemoglobin of 6.9. Blood pressure is elevated. Patient denies any complaints. - Past Medical Family Social History Past Med/Fam/Surg Hx: No changes since H&P Allergies: Allergies Iodinated Contrast- Oral and IV Dye Allergy (Verified 02/28/19 17:05) ketorolac [From Toradol] Allergy (Verified 11/12/18 15:15) lisinopril Allergy (Verified 11/12/18 15:15) - Review of Systems ROS: No change since H&P - Vital Signs and I&O's Vital Signs: Blood Pressure [Right Arm] 149/69 Blood Pressure [Left Arm] 176/80 Blood Pressure 156/72 - Physical Exam Oriented: Normal Eyes: Normal Ear: Normal Nose: Normal Throat: Normal Cardiovascular: Normal : Normal Auscultation: Bowel Sounds: Normal Palpation: Normal Tenderness: Normal Skin: Normal Musculoskeletal: Normal Psychiatric: Normal Mood Description: Calm Affect: Normal Speech Pattern: Clear - Laboratory and Diagnostics Result Diagrams: 03/26/19 05:55 03/26/19 05:55 Labs: Laboratory WBC 6.0 X10^3/uL (3.6-10.0) 03/26/19 05:55 RBC 2.14 X10^6/uL (4.7-6.0) L 03/26/19 05:55 Hgb 7.0 g/dL (13.5-18.0) L 03/26/19 05:55 Hct 20.4 % (42.0-54.0) L 03/26/19 05:55 MCV 95.4 fL (80.0-100.0) 03/26/19 05:55 MCH 32.9 pg (27.0-34.0) 03/26/19 05:55 MCHC 34.5 g/dL (33.0-35.0) 03/26/19 05:55 RDW 17.6 % (11.6-16.5) H 03/26/19 05:55 Plt Count 128 X10^3/uL (150.0-450.0) L 03/26/19 05:55 Plt Count Comment Adequate (ADEQUATE) 03/26/19 05:55 MPV 8.8 fL (7.4-11.0) 03/26/19 05:55 Neut % (Auto) 79.0 % (42.0-75.0) H 03/26/19 05:55 Lymph % (Auto) 9.2 % (21.0-51.0) L 03/26/19 05:55 [place] % (Auto) 9.8 % (0.0-13.0) 03/26/19 05:55 Eos % (Auto) 1.4 % (0.9-2.9) 03/26/19 05:55 Baso % (Auto) 0.6 % (0.2-1.0) 03/26/19 05:55 Neut # (Auto) 4.8 x10^3/uL (2.2-4.8) 03/26/19 05:55 Lymph # (Auto) 0.6 X10^3/uL (1.3-2.9) L 03/26/19 05:55 [place] # (Auto) 0.6 x10^3/uL (0.3-0.8) 03/26/19 05:55 Eos # (Auto) 0.1 x10^3/uL (0.0-0.2) 03/26/19 05:55 Baso # (Auto) 0.0 X10^3/uL (0.0-0.1) 03/26/19 05:55 Absolute Nucleated RBC 0.1 /100WBC 03/26/19 05:55 Plt Morphology Comment Normal (NORMAL) 03/26/19 05:55 RBC Morphology Abnormal (NORMAL) 03/26/19 05:55 Hypochromasia 1+ A 03/26/19 05:55 Anisocytosis 1+ A 03/26/19 05:55 Sodium 146 mmol/L (136-145) H 03/26/19 05:55 Corrected Sodium TNP 03/26/19 05:55 Potassium 3.7 mmol/L (3.5-5.1) 03/26/19 05:55 Chloride 112 mmol/L (98-107) H 03/26/19 05:55 Carbon Dioxide 21.3 mmol/L (21-32) 03/26/19 05:55 BUN 54 mg/dL (7-18) H 03/26/19 05:55 Creatinine 2.45 mg/dL (0.70-1.30) H 03/26/19 05:55 Est GFR (MDRD) Af Amer 33 (>60) L 03/26/19 05:55 Est GFR (MDRD) Non-Af 27 (>60) L 03/26/19 05:55 Glucose 109 mg/dL (65-99) H 03/26/19 05:55 Calcium 8.4 mg/dL (8.5-10.1) L 03/26/19 05:55 Corrected Calcium 9.4 mg/dL (8.5-10.1) 03/26/19 05:55 Total Bilirubin 0.30 mg/dL (0.2-1.0) 03/26/19 05:55 AST 20 Units/L (15-37) 03/26/19 05:55 ALT 46 Units/L (12-78) 03/26/19 05:55 Alkaline Phosphatase 46 Units/L (46-116) 03/26/19 05:55 Total Protein 5.7 g/dL (6.4-8.2) L 03/26/19 05:55 Albumin 2.8 g/dL (3.4-5.0) L 03/26/19 05:55 Globulin 2.9 g/dL (2.5-4.5) 03/26/19 05:55 Albumin/Globulin Ratio 1.0 Ratio (1.1-2.1) L 03/26/19 05:55 Blood Type O POSITIVE 03/26/19 11:09 Antibody Screen Negative 03/26/19 11:09 Crossmatch See Detail 03/26/19 11:09 Tx React Prelim Eval No evidence of htr 03/23/19 12:46 Tx React Symptoms Decrease bp 03/23/19 12:46 Reaction [address] Interpret No evidence of htr 03/23/19 12:46 Reaction Pathol Consult Felicity wade md 03/23/19 12:46 Blood Bank Comment [facility] 03/23/19 12:46 - Plan (1) Anemia Status: Chronic Qualifiers: Anemia type: other cause Other causes of anemia: other cause, not classified Qualified Code(s): D64.89 - Other specified anemias Plan: type and cross 2 units and transfuse. Monitor CBC. Iron panel profile (2) Hypertension, uncontrolled Status: Chronic Plan: monitor blood pressure. Home meds (3) Iron deficiency anemia Status: Acute Plan: Venofer per protocol
--- NOTE | 2019-03-26 15:18 | PCM.PROG ---
Progress Note - Progress Note for Day of Date of Exam: 03/25/19 - Subjective Subjective: the patient is an 81-year-old black male resident of [facility] who was admitted secondary to anemia. Patient has had 1.75 unit of packed red blood cells. Second unit of packed red blood cell stopped due to blood pressure dropping. blood pressure at present in elevated. Patient denies any shortness of breath. Patient denies any complaints. - Past Medical Family Social History Past Med/Fam/Surg Hx: No changes since H&P Allergies: Allergies Iodinated Contrast- Oral and IV Dye Allergy (Verified 02/28/19 17:05) ketorolac [From Toradol] Allergy (Verified 11/12/18 15:15) lisinopril Allergy (Verified 11/12/18 15:15) - Review of Systems ROS: No change since H&P - Vital Signs and I&O's Vital Signs: Blood Pressure [Right Arm] 149/69 Blood Pressure [Left Arm] 176/80 Blood Pressure 156/72 - Physical Exam Oriented: Normal Eyes: Normal Ear: Normal Nose: Normal Throat: Normal Cardiovascular: Normal : Normal Auscultation: Bowel Sounds: Normal Palpation: Normal Tenderness: Normal Skin: Normal Musculoskeletal: Normal Psychiatric: Normal Mood Description: Calm Affect: Normal Speech Pattern: Clear - Laboratory and Diagnostics Result Diagrams: 03/26/19 05:55 03/26/19 05:55 Labs: Laboratory WBC 6.0 X10^3/uL (3.6-10.0) 03/26/19 05:55 RBC 2.14 X10^6/uL (4.7-6.0) L 03/26/19 05:55 Hgb 7.0 g/dL (13.5-18.0) L 03/26/19 05:55 Hct 20.4 % (42.0-54.0) L 03/26/19 05:55 MCV 95.4 fL (80.0-100.0) 03/26/19 05:55 MCH 32.9 pg (27.0-34.0) 03/26/19 05:55 MCHC 34.5 g/dL (33.0-35.0) 03/26/19 05:55 RDW 17.6 % (11.6-16.5) H 03/26/19 05:55 Plt Count 128 X10^3/uL (150.0-450.0) L 03/26/19 05:55 Plt Count Comment Adequate (ADEQUATE) 03/26/19 05:55 MPV 8.8 fL (7.4-11.0) 03/26/19 05:55 Neut % (Auto) 79.0 % (42.0-75.0) H 03/26/19 05:55 Lymph % (Auto) 9.2 % (21.0-51.0) L 03/26/19 05:55 [place] % (Auto) 9.8 % (0.0-13.0) 03/26/19 05:55 Eos % (Auto) 1.4 % (0.9-2.9) 03/26/19 05:55 Baso % (Auto) 0.6 % (0.2-1.0) 03/26/19 05:55 Neut # (Auto) 4.8 x10^3/uL (2.2-4.8) 03/26/19 05:55 Lymph # (Auto) 0.6 X10^3/uL (1.3-2.9) L 03/26/19 05:55 [place] # (Auto) 0.6 x10^3/uL (0.3-0.8) 03/26/19 05:55 Eos # (Auto) 0.1 x10^3/uL (0.0-0.2) 03/26/19 05:55 Baso # (Auto) 0.0 X10^3/uL (0.0-0.1) 03/26/19 05:55 Absolute Nucleated RBC 0.1 /100WBC 03/26/19 05:55 Plt Morphology Comment Normal (NORMAL) 03/26/19 05:55 RBC Morphology Abnormal (NORMAL) 03/26/19 05:55 Hypochromasia 1+ A 03/26/19 05:55 Anisocytosis 1+ A 03/26/19 05:55 Sodium 146 mmol/L (136-145) H 03/26/19 05:55 Corrected Sodium TNP 03/26/19 05:55 Potassium 3.7 mmol/L (3.5-5.1) 03/26/19 05:55 Chloride 112 mmol/L (98-107) H 03/26/19 05:55 Carbon Dioxide 21.3 mmol/L (21-32) 03/26/19 05:55 BUN 54 mg/dL (7-18) H 03/26/19 05:55 Creatinine 2.45 mg/dL (0.70-1.30) H 03/26/19 05:55 Est GFR (MDRD) Af Amer 33 (>60) L 03/26/19 05:55 Est GFR (MDRD) Non-Af 27 (>60) L 03/26/19 05:55 Glucose 109 mg/dL (65-99) H 03/26/19 05:55 Calcium 8.4 mg/dL (8.5-10.1) L 03/26/19 05:55 Corrected Calcium 9.4 mg/dL (8.5-10.1) 03/26/19 05:55 Total Bilirubin 0.30 mg/dL (0.2-1.0) 03/26/19 05:55 AST 20 Units/L (15-37) 03/26/19 05:55 ALT 46 Units/L (12-78) 03/26/19 05:55 Alkaline Phosphatase 46 Units/L (46-116) 03/26/19 05:55 Total Protein 5.7 g/dL (6.4-8.2) L 03/26/19 05:55 Albumin 2.8 g/dL (3.4-5.0) L 03/26/19 05:55 Globulin 2.9 g/dL (2.5-4.5) 03/26/19 05:55 Albumin/Globulin Ratio 1.0 Ratio (1.1-2.1) L 03/26/19 05:55 Blood Type O POSITIVE 03/26/19 11:09 Antibody Screen Negative 03/26/19 11:09 Crossmatch See Detail 03/26/19 11:09 Tx React Prelim Eval No evidence of htr 03/23/19 12:46 Tx React Symptoms Decrease bp 03/23/19 12:46 Reaction [address] Interpret No evidence of htr 03/23/19 12:46 Reaction Pathol Consult Felicity wade md 03/23/19 12:46 Blood Bank Comment [facility] P2 03/23/19 12:46 - Plan (1) Anemia Status: Chronic Qualifiers: Anemia type: other cause Other causes of anemia: other cause, not classified Qualified Code(s): D64.89 - Other specified anemias Plan: type and cross 2 units and transfuse. Monitor CBC. Iron panel profile (2) Hypertension, uncontrolled Status: Chronic Plan: monitor blood pressure. Home meds (3) Iron deficiency anemia Status: Acute Plan: Venofer per protocol
--- NOTE | 2019-03-26 15:21 | PCM.PROG ---
Progress Note - Progress Note for Day of Date of Exam: 03/26/19 - Subjective Subjective: the patient is an 81-year-old black male resident of [facility] who was admitted secondary to anemia. Patient has had 1.75 units of packed red blood cells. blood on 03/25/2019 and has not been transfused due to in the oil [employer] lab[employer] approval. Patient denies any shortness of breath. Patient denies any complaints. nursing does state that when he uses the bathroom there was blood in the toilet. Unsure if it came from urinary or GI tract. - Past Medical Family Social History Past Med/Fam/Surg Hx: No changes since H&P Allergies: Allergies Iodinated Contrast- Oral and IV Dye Allergy (Verified 02/28/19 17:05) ketorolac [From Toradol] Allergy (Verified 11/12/18 15:15) lisinopril Allergy (Verified 11/12/18 15:15) - Review of Systems ROS: No change since H&P - Vital Signs and I&O's Vital Signs: Blood Pressure [Right Arm] 149/69 Blood Pressure [Left Arm] 176/80 Blood Pressure 156/72 - Physical Exam Oriented: Normal Eyes: Normal Ear: Normal Nose: Normal Throat: Normal Cardiovascular: Normal : Normal Auscultation: Bowel Sounds: Normal Palpation: Normal Tenderness: Normal Skin: Normal Musculoskeletal: Normal Psychiatric: Normal Mood Description: Calm Affect: Normal Speech Pattern: Clear - Laboratory and Diagnostics Result Diagrams: 03/26/19 05:55 03/26/19 05:55 Labs: Laboratory WBC 6.0 X10^3/uL (3.6-10.0) 03/26/19 05:55 RBC 2.14 X10^6/uL (4.7-6.0) L 03/26/19 05:55 Hgb 7.0 g/dL (13.5-18.0) L 03/26/19 05:55 Hct 20.4 % (42.0-54.0) L 03/26/19 05:55 MCV 95.4 fL (80.0-100.0) 03/26/19 05:55 MCH 32.9 pg (27.0-34.0) 03/26/19 05:55 MCHC 34.5 g/dL (33.0-35.0) 03/26/19 05:55 RDW 17.6 % (11.6-16.5) H 03/26/19 05:55 Plt Count 128 X10^3/uL (150.0-450.0) L 03/26/19 05:55 Plt Count Comment Adequate (ADEQUATE) 03/26/19 05:55 MPV 8.8 fL (7.4-11.0) 03/26/19 05:55 Neut % (Auto) 79.0 % (42.0-75.0) H 03/26/19 05:55 Lymph % (Auto) 9.2 % (21.0-51.0) L 03/26/19 05:55 [place] % (Auto) 9.8 % (0.0-13.0) 03/26/19 05:55 Eos % (Auto) 1.4 % (0.9-2.9) 03/26/19 05:55 Baso % (Auto) 0.6 % (0.2-1.0) 03/26/19 05:55 Neut # (Auto) 4.8 x10^3/uL (2.2-4.8) 03/26/19 05:55 Lymph # (Auto) 0.6 X10^3/uL (1.3-2.9) L 03/26/19 05:55 [place] # (Auto) 0.6 x10^3/uL (0.3-0.8) 03/26/19 05:55 Eos # (Auto) 0.1 x10^3/uL (0.0-0.2) 03/26/19 05:55 Baso # (Auto) 0.0 X10^3/uL (0.0-0.1) 03/26/19 05:55 Absolute Nucleated RBC 0.1 /100WBC 03/26/19 05:55 Plt Morphology Comment Normal (NORMAL) 03/26/19 05:55 RBC Morphology Abnormal (NORMAL) 03/26/19 05:55 Hypochromasia 1+ A 03/26/19 05:55 Anisocytosis 1+ A 03/26/19 05:55 Sodium 146 mmol/L (136-145) H 03/26/19 05:55 Corrected Sodium TNP 03/26/19 05:55 Potassium 3.7 mmol/L (3.5-5.1) 03/26/19 05:55 Chloride 112 mmol/L (98-107) H 03/26/19 05:55 Carbon Dioxide 21.3 mmol/L (21-32) 03/26/19 05:55 BUN 54 mg/dL (7-18) H 03/26/19 05:55 Creatinine 2.45 mg/dL (0.70-1.30) H 03/26/19 05:55 Est GFR (MDRD) Af Amer 33 (>60) L 03/26/19 05:55 Est GFR (MDRD) Non-Af 27 (>60) L 03/26/19 05:55 Glucose 109 mg/dL (65-99) H 03/26/19 05:55 Calcium 8.4 mg/dL (8.5-10.1) L 03/26/19 05:55 Corrected Calcium 9.4 mg/dL (8.5-10.1) 03/26/19 05:55 Total Bilirubin 0.30 mg/dL (0.2-1.0) 03/26/19 05:55 AST 20 Units/L (15-37) 03/26/19 05:55 ALT 46 Units/L (12-78) 03/26/19 05:55 Alkaline Phosphatase 46 Units/L (46-116) 03/26/19 05:55 Total Protein 5.7 g/dL (6.4-8.2) L 03/26/19 05:55 Albumin 2.8 g/dL (3.4-5.0) L 03/26/19 05:55 Globulin 2.9 g/dL (2.5-4.5) 03/26/19 05:55 Albumin/Globulin Ratio 1.0 Ratio (1.1-2.1) L 03/26/19 05:55 Blood Type O POSITIVE 03/26/19 11:09 Antibody Screen Negative 03/26/19 11:09 Crossmatch See Detail 03/26/19 11:09 Tx React Prelim Eval No evidence of htr 03/23/19 12:46 Tx React Symptoms Decrease bp 03/23/19 12:46 Reaction Path Interpret No evidence of htr 03/23/19 12:46 Reaction Pathol Consult Felicity wade md 03/23/19 12:46 Blood Bank Comment [facility] P2 03/23/19 12:46 - Plan (1) Anemia Status: Chronic Qualifiers: Anemia type: other cause Other causes of anemia: other cause, not classified Qualified Code(s): D64.89 - Other specified anemias Plan: type and cross 2 units and transfuse. Monitor CBC. (2) Hypertension, uncontrolled Status: Chronic Plan: monitor blood pressure. Home meds (3) Iron deficiency anemia Status: Acute Plan: Venofer per protocol (4) GI bleed Status: Acute Plan: Questionable. Stool hemocult. (5) CHF (congestive heart failure) Status: Chronic Qualifiers: Heart failure type: combined systolic and diastolic Heart failure chronicity: chronic Qualified Code(s): I50.42 - Chronic combined systolic (congestive) and diastolic (congestive) heart failure Plan: Lasix between units. CXR (6) CKD (chronic kidney disease) stage 3, GFR 30-59 ml/min Status: Acute (7) Diabetes type 2, controlled Status: Acute Qualifiers: Diabetes mellitus mcfp insulin use: without mcfp use Diabetes mellitus complication status: with kidney complications Diabetes mellitus complication detail: with chronic kidney disease Chronic kidney disease stage: stage 3 (moderate) Qualified Code(s): E11.22 - Type 2 diabetes mellitus with diabetic chronic kidney disease; N18.3 - Chronic kidney disease, stage 3 (moderate) Plan: Monitor BS.
[2019-03-26] MEDS: ASPIRIN EC 81 MG PO SCH (17:52)
[2019-03-26] MEDS: COREG TAB 25 MG PO SCH ×2 (17:52→20:46)
[2019-03-26] MEDS: FLOMAX PO SCH (17:53)
[2019-03-26] MEDS: LASIX PO SCH (17:54)
[2019-03-26] MEDS: HEMOCYTE-PLUS PO SCH (17:54)
[2019-03-26] MEDS: MICRO K EXTEN CAP 10 MEQ PO SCH (17:55)
[2019-03-26] MEDS: PLAVIX PO SCH (17:58)
[2019-03-26] MEDS: PEPCID TAB 20 MG PO SCH (17:58)
[2019-03-26] MEDS: PROCARDIA XL PO SCH ×2 (17:59)
[2019-03-26] MEDS: PROTONIX TAB 40 MG PO SCH (18:00)
[2019-03-26] MEDS: APRESOLINE TAB 25 MG PO SCH ×2 (18:30→21:07)
[2019-03-26] MEDS: DUONEB 0.5 MG/3 MG NEB PRN (20:00)
[2019-03-26 20:54] LABS: BASOPHILS # (AUTO) 0.1 X10^3/uL (0.0-0.1); BASOPHILS % (AUTO) 0.9 % (0.2-1.0); EOSINOPHILS # (AUTO) 0.2 x10^3/uL (0.0-0.2); HEMATOCRIT 26.4 % (42.0-54.0); HEMOGLOBIN 8.9 g/dL (13.5-18.0); LYMPHOCYTES # (AUTO) 0.7 X10^3/uL (1.3-2.9); LYMPHOCYTES % (AUTO) 10.6 % (21.0-51.0); MEAN CORPUSCULAR HEMOGLOBIN 31.5 pg (27.0-34.0); MEAN CORPUSCULAR HGB CONC 33.7 g/dL (33.0-35.0); MEAN CORPUSCULAR VOLUME 93.6 fL (80.0-100.0); MEAN PLATELET VOLUME 8.7 fL (7.4-11.0); MONOCYTES # (AUTO) 0.7 x10^3/uL (0.3-0.8); MONOCYTES % (AUTO) 10.7 % (0.0-13.0); NEUTROPHILS # (AUTO) 5.2 x10^3/uL (2.2-4.8); NEUTROPHILS % (AUTO) 74.8 % (42.0-75.0); PLATELET COUNT 132 X10^3/uL (150.0-450.0); RED BLOOD COUNT 2.82 X10^6/uL (4.7-6.0); RED CELL DISTRIBUTION WIDTH 18.1 % (11.6-16.5)
[2019-03-26] MEDS ORDERED: LIPITOR TAB 40 MG PO SCH (21:00)
[2019-03-26] MEDS ORDERED: PROSCAR PO SCH (21:00)
[2019-03-27] MEDS: LOPRESSOR INJ 5 MG AMP IVP PRN ×2 (04:17→08:42)
[2019-03-27] MEDS: APRESOLINE TAB 25 MG PO SCH ×2 (05:11→13:19)
[2019-03-27 05:33] LABS: BASOPHILS % (AUTO) 0.5 % (0.2-1.0); EOSINOPHILS # (AUTO) 0.2 x10^3/uL (0.0-0.2); EOSINOPHILS % (AUTO) 3.3 % (0.9-2.9); HEMATOCRIT 25.5 % (42.0-54.0); HEMOGLOBIN 8.7 g/dL (13.5-18.0); LYMPHOCYTES # (AUTO) 0.6 X10^3/uL (1.3-2.9); LYMPHOCYTES % (AUTO) 7.4 % (21.0-51.0); MEAN CORPUSCULAR HEMOGLOBIN 31.9 pg (27.0-34.0); MEAN CORPUSCULAR VOLUME 93.9 fL (80.0-100.0); MEAN PLATELET VOLUME 8.7 fL (7.4-11.0); MONOCYTES # (AUTO) 0.7 x10^3/uL (0.3-0.8); MONOCYTES % (AUTO) 8.5 % (0.0-13.0); NEUTROPHILS # (AUTO) 6.1 x10^3/uL (2.2-4.8); NEUTROPHILS % (AUTO) 80.3 % (42.0-75.0); PLATELET COUNT 133 X10^3/uL (150.0-450.0); RED BLOOD COUNT 2.72 X10^6/uL (4.7-6.0); RED CELL DISTRIBUTION WIDTH 17.9 % (11.6-16.5); WHITE BLOOD COUNT 7.6 X10^3/uL (3.6-10.0)
[2019-03-27 05:43] LABS: ALBUMIN 2.9 g/dL (3.4-5.0); CALCIUM 8.6 mg/dL (8.5-10.1); CARBON DIOXIDE 23.3 mmol/L (21-32); COR CA(FOR HYPOALB) 9.5 mg/dL (8.5-10.1); CREATININE 2.39 mg/dL (0.70-1.30)
[2019-03-27] MEDS: LASIX PO SCH (08:41)
[2019-03-27] MEDS: PROCARDIA XL PO SCH ×2 (08:42)
[2019-03-27] MEDS: HEMOCYTE-PLUS PO SCH (08:43)
[2019-03-27] MEDS: COREG TAB 25 MG PO SCH (08:43)
[2019-03-27] MEDS: ASPIRIN EC 81 MG PO SCH (08:50)
[2019-03-27] MEDS: MICRO K EXTEN CAP 10 MEQ PO SCH (08:50)
[2019-03-27] MEDS: PEPCID TAB 20 MG PO SCH (08:51)
[2019-03-27] MEDS: FLOMAX PO SCH (08:51)
[2019-03-27] MEDS: PROTONIX TAB 40 MG PO SCH (08:51)
[2019-03-27] MEDS: PLAVIX PO SCH (08:53)
[2019-03-27] MEDS: DUONEB 0.5 MG/3 MG NEB PRN ×2 (09:04→12:28)
[2019-03-27] MEDS: NS 1000 ML 1,000 ML IV SCH ×2 (09:19→13:20)
[2019-03-27] MEDS ORDERED: NORMODYNE INJ 100 MG VIAL ONE (10:20)
[2019-03-27 12:11] VITALS: BP 190/79
[2019-03-28] MEDS ORDERED: MINOXIDIL PO SCH (09:00)
[2019-03-30] MEDS ORDERED: CATAPRES-TTS-3 TD SCH (09:00)
== END 2019-03-27 13:35 | DRG 812 ==
LOC: ICU 11:38
PROVIDERS: ADMIT Internal Medicine; ATTEND Internal Medicine
DX: K21.9 Gastro-esophageal reflux disease without esophagitis; E11.65 Type 2 diabetes mellitus with hyperglycemia; I25.10 Atherosclerotic heart disease of native coronary artery without angina pectoris; K92.2 Gastrointestinal hemorrhage, unspecified; I13.0 Hypertensive heart and chronic kidney disease with heart failure and stage 1 through stage 4 chronic kidney disease, or unspecified chronic kidney disease; E78.2 Mixed hyperlipidemia; J44.9 Chronic obstructive pulmonary disease, unspecified; N18.3 Chronic kidney disease, stage 3 (moderate); D50.8 Other iron deficiency anemias; I50.42 Chronic combined systolic (congestive) and diastolic (congestive) heart failure; E11.22 Type 2 diabetes mellitus with diabetic chronic kidney disease
CPT/HCPCS: 36415; 36430; 71010; 71045; 80048; 80053; 82607; 82728; 82746; 83540; 84466; 85025; 86850; 86900; 86901; 86922; 94640; A4222; P9016; Q0177; S0138; J1815; J1940; J3490; J7030; J7620

== ENCOUNTER 2019-08-28 09:38 | Inpatient (IN) ==
[2019-08-28 09:48] VITALS: BMI 23.9
--- NOTE | 2019-08-28 09:54 | DR.SOBA ---
HPI Time Seen Time Seen by Provider: 08/28/19 09:53 Primary Care Physician Primary Care Physician: MISSY INMAN HPI Comment HPI Comment: Brought in by daughter for cough, congestion and not feeling well for at least a week; seems to be worsening despite breathing tx as below; wheezing with mostly nonproductive cough; no abd pain, n/v/d; poor appetite. Complaints Chief Complaint:: PT. C/O SHORTNESS OF BREATH, CHEST CONGESTION, AND COUGH X 3 DAYS. DAUGHTER STATES HE HAS BEEN SICK ABOUT A WEEK. DAUGHTER HAS BEEN GOING TO PT'S HOME TO GIVE HIM BREATHING TREATMENTS FOR THE PAST 3 MORNINGS BUT THIS MORNING, PT. C/O CHEST PAIN AND WAS WHEEZING. Reviewed Nurses Notes Reviewed: Yes Source History Provided: Patient Mode of Arrival Mode of Arrival: Ambulatory Timing Onset of Chief Complaint: 08/25/19 PMH PMH Past Medical History: Yes Past Medical History: Arthritis, CHF, COPD, Coronary Artery Disease, Diabetes, Dyslipidemia, GERD and Hypertension Past Surgical History: Yes Surgical History: Angioplasty/Stents and CABG/Valve Surgery Family History History of Family Medical Conditions: Yes Family Medical History: Diabetes Mellitus, Cancer and Coronary Artery Disease Social History Does patient currently use any type of tobacco product: No Have you used tobacco products in the last 12 months: No Type of Tobacco Use: None Does any household member use tobacco: No Alcohol Use: None Do you use any recreational Drugs:: No Lives With: Alone Lives Where: Home infectious screening In the last 2 months have you had wt loss of >10#?: NO Have you had fever, night sweats or hemotysis?: No Have you traveled outside the country in the last 6 months?: No Isolation: Standard ROS Review of Systems Constitutional: See HPI, Malaise and Fatigue Eyes: No Symptoms Reported Respiratoy: See HPI Cardiovascular: See HPI Gastrointestinal/Abdominal: No Symptoms Reported Neurological: No Symptoms Reported Musculoskeletal: Joint Pain Integumentary: No Symptoms Reported PE Vital Signs Vitals: Temperature 98.7 F Pulse Rate [Apical] 67 Pulse Rate 69 Respiratory Rate 21 Blood Pressure [Right Arm] 149/69 Blood Pressure [Left Arm] 162/74 Blood Pressure 168/74 O2 Sat by Pulse Oximetry 95 General Limitations: No Limitations General Appearance: In No Apparent Distress (appears sickly, resting quietly with oxygen in place) Head Head Exam: Normal Inspection, Atraumatic and Normocephalic Eyes Eye exam: Normal Appearance ENT ENT Exam: Normal Exam and Normal Oropharynx Neck Neck Exam: Normal Inspection, Full ROM and Trachea Midline Chest Chest Inspection: Normal Inspection and Symmetric Chest Wall Rise Respiratory Respiratory Exam: Bilateral: Wheezing and Bilateral: Crackles Cardiovascular Cardiovascular Exam: Regular Rate and Irregular Rhythm Abdominal Exam Abdominal Exam: Normal Inspection, Normal Bowel Sounds and Soft Extremities Extremities Exam: Edema (trace) Neurologic Neurological Exam: Alert and Oriented X3 Psychiatric Psychiatric Exam: Normal Affect and Depressed Skin Skin Exam: Warm and Dry COURSE Reevaluation 1st: Unchanged ROR Labs Reviewed Result Diagrams: 08/28/19 10:20 08/28/19 10:20 Laboratory: WBC 6.5 X10^3/uL (3.6-10.0) 08/28/19 10:20 RBC 2.59 X10^6/uL (4.7-6.0) L 08/28/19 10:20 Hgb 8.2 g/dL (13.5-18.0) L 08/28/19 10:20 Hct 24.6 % (42.0-54.0) L 08/28/19 10:20 MCV 94.7 fL (80.0-100.0) 08/28/19 10:20 MCH 31.8 pg (27.0-34.0) 08/28/19 10:20 MCHC 33.6 g/dL (33.0-35.0) 08/28/19 10:20 RDW 15.6 % (11.6-16.5) 08/28/19 10:20 Plt Count 115 X10^3/uL (150.0-450.0) L 08/28/19 10:20 MPV 8.4 fL (7.4-11.0) 08/28/19 10:20 Neut % (Auto) 82.2 % (42.0-75.0) H 08/28/19 10:20 Lymph % (Auto) 6.9 % (21.0-51.0) L 08/28/19 10:20 [place] % (Auto) 7.5 % (0.0-13.0) 08/28/19 10:20 Eos % (Auto) 2.2 % (0.9-2.9) 08/28/19 10:20 Baso % (Auto) 1.2 % (0.2-1.0) H 08/28/19 10:20 Neut # (Auto) 5.4 x10^3/uL (2.2-4.8) H 08/28/19 10:20 Lymph # (Auto) 0.4 X10^3/uL (1.3-2.9) L 08/28/19 10:20 [place] # (Auto) 0.5 x10^3/uL (0.3-0.8) 08/28/19 10:20 Eos # (Auto) 0.1 x10^3/uL (0.0-0.2) 08/28/19 10:20 Baso # (Auto) 0.1 X10^3/uL (0.0-0.1) 08/28/19 10:20 Absolute Nucleated RBC 0.1 /100WBC 08/28/19 10:20 Sodium 141 mmol/L (136-145) 08/28/19 10:20 Corrected Sodium TNP 08/28/19 10:20 Potassium 4.2 mmol/L (3.5-5.1) 08/28/19 10:20 Chloride 105 mmol/L (98-107) 08/28/19 10:20 Carbon Dioxide 27.8 mmol/L (21-32) 08/28/19 10:20 BUN 41 mg/dL (7-18) H 08/28/19 10:20 Creatinine 2.60 mg/dL (0.70-1.30) H 08/28/19 10:20 Est GFR (MDRD) Af Amer 31 (>60) L 08/28/19 10:20 Est GFR (MDRD) Non-Af 25 (>60) L 08/28/19 10:20 Glucose 95 mg/dL (65-99) 08/28/19 10:20 Calcium 9.1 mg/dL (8.5-10.1) 08/28/19 10:20 Corrected Calcium TNP 08/28/19 10:20 Total Bilirubin 0.50 mg/dL (0.2-1.0) 08/28/19 10:20 AST 28 Units/L (15-37) 08/28/19 10:20 ALT 32 Units/L (12-78) 08/28/19 10:20 Alkaline Phosphatase 56 Units/L (46-116) 08/28/19 10:20 Creatine Kinase 162 Units/L (39-308) 08/28/19 10:20 CK-MB (CK-2) 1.8 ng/mL (0-4.0) 08/28/19 10:20 CK/CKMB % Calc 1.1 % (<4) 08/28/19 10:20 Troponin I 0.03 ng/mL (0-1.5) 08/28/19 10:20 Total Protein 6.6 g/dL (6.4-8.2) 08/28/19 10:20 Albumin 3.5 g/dL (3.4-5.0) 08/28/19 10:20 Globulin 3.1 g/dL (2.5-4.5) 08/28/19 10:20 Albumin/Globulin Ratio 1.1 Ratio (1.1-2.1) 08/28/19 10:20 Influenza Type A (PCR) Negative (NEGATIVE) 08/28/19 10:38 Influenza Type B (PCR) Negative (NEGATIVE) 08/28/19 10:38 S. pyogenes (TEM-PCR) Not detected (NOT DETECT) 08/28/19 10:38 Other Results Comments: fluid overload XRAY XRAY Interpreted by: Self Opioid Opioid Risk Tool Age ([place] if 16-45): No Total: 0 Total Score Risk Category: Low Risk Copyright: Leandro SANCHEZ predicting aberrant behaviors Diagnosis Discharge Problem: Hypertension, uncontrolled CHF (congestive heart failure) Qualifiers: Heart failure type: unspecified Heart failure chronicity: acute on chronic Qualified Code(s): I50.9 - Heart failure, unspecified CRF (chronic renal failure) Qualifiers: Chronic kidney disease stage: stage 4 (severe) Qualified Code(s): N18.4 - Chronic kidney disease, stage 4 (severe) Instructions Forms: Excuse From Work
[2019-08-28 10:29] LABS: BASOPHILS # (AUTO) 0.1 X10^3/uL (0.0-0.1); BASOPHILS % (AUTO) 1.2 % (0.2-1.0); EOSINOPHILS # (AUTO) 0.1 x10^3/uL (0.0-0.2); EOSINOPHILS % (AUTO) 2.2 % (0.9-2.9); HEMATOCRIT 24.6 % (42.0-54.0); HEMOGLOBIN 8.2 g/dL (13.5-18.0); LYMPHOCYTES # (AUTO) 0.4 X10^3/uL (1.3-2.9); LYMPHOCYTES % (AUTO) 6.9 % (21.0-51.0); MEAN CORPUSCULAR HEMOGLOBIN 31.8 pg (27.0-34.0); MEAN CORPUSCULAR HGB CONC 33.6 g/dL (33.0-35.0); MEAN CORPUSCULAR VOLUME 94.7 fL (80.0-100.0); MEAN PLATELET VOLUME 8.4 fL (7.4-11.0); MONOCYTES # (AUTO) 0.5 x10^3/uL (0.3-0.8); MONOCYTES % (AUTO) 7.5 % (0.0-13.0); NEUTROPHILS # (AUTO) 5.4 x10^3/uL (2.2-4.8); NEUTROPHILS % (AUTO) 82.2 % (42.0-75.0); PLATELET COUNT 115 X10^3/uL (150.0-450.0); RED BLOOD COUNT 2.59 X10^6/uL (4.7-6.0); RED CELL DISTRIBUTION WIDTH 15.6 % (11.6-16.5); WHITE BLOOD COUNT 6.5 X10^3/uL (3.6-10.0)
[2019-08-28 10:47] LABS: BLOOD UREA NITROGEN 41 mg/dL (7-18); CALCIUM 9.1 mg/dL (8.5-10.1); CARBON DIOXIDE 27.8 mmol/L (21-32); CHLORIDE 105 mmol/L (98-107); SODIUM 141 mmol/L (136-145); TROPONIN I 0.03 ng/mL (0-1.5); eGFR NON BLACK RACES 25 (>60)
[2019-08-28 10:51] LABS: ALANINE AMINOTRANSFERASE 32 Units/L (12-78); ALBUMIN 3.5 g/dL (3.4-5.0); ALKALINE PHOSPHATASE 56 Units/L (46-116); ASPARTATE AMINO TRANSFERASE 28 Units/L (15-37); CKMB % 1.1 % (<4); CREATINE KINASE 162 Units/L (39-308); CREATINE KINASE MB 1.8 ng/mL (0-4.0); TOTAL PROTEIN 6.6 g/dL (6.4-8.2)
[2019-08-28 11:17] LABS: STREP A BY PCR NOT DETECTED (NOT DETECT)
[2019-08-28] MEDS ORDERED: LASIX IV STA (11:25)
[2019-08-28] MEDS ORDERED: LASIX IVP ONE (11:28)
--- NOTE | 2019-08-28 12:27 | RAD ---
HISTORYShortness of breathSTUDYSingle-view [id number] trachea is midline. The cardiac silhouette is enlarged with a tortuous thoracic aorta. Prior changes of median sternotomy are noted. Chronic interstitial lung changes are observed discoid atelectasis of the right midlung zone. A density within the right midlung zone consistent fluid of the right minor fissure is noted and seen on prior examination. The bony thorax is unremarkable.IMPRESSIONFluid within the minor fissure is observed discoid atelectasis right midlung zone. Otherwise, acute cardiopulmonary disease can be identified.Electronically signed by: DAYNE ROSS (Aug 28, 2019 12:25:39)
[2019-08-28 16:35] LABS: CKMB % 1.1 % (<4); CREATINE KINASE MB 1.7 ng/mL (0-4.0); TROPONIN I 0.05 ng/mL (0-1.5)
[2019-08-28 18:24] LABS: BILIRUBIN,URINE NEGATIVE (NEGATIVE); BLOOD/HEMOGLOBIN,URINE NEGATIVE (NEGATIVE); GLUCOSE, URINE NEGATIVE (NEGATIVE); KETONES,URINE NEGATIVE (NEGATIVE); LEUKOCYTE ESTERASE ,URINE NEGATIVE (NEGATIVE); NITRITES,URINE NEGATIVE (NEGATIVE); PROTEIN,URINE 2+ (NEGATIVE); UROBILINOGEN,URINE NORMAL (NORMAL)
[2019-08-28 18:36] LABS: APPEARANCE,URINE CLEAR (CLEAR); COLOR,URINE PALE YELLOW (YELLOW)
[2019-08-28 18:37] LABS: BACTERIA,URINE NEGATIVE /HPF (NEGATIVE); RBC,URINE 0-2 /HPF (0-3); SQUAMOUS EPITHELIAL CELL,UR RARE /HPF (NEGATIVE)
[2019-08-28] MEDS ORDERED: CATAPRES-TTS-2 TD SCH (21:00)
[2019-08-28] MEDS: APRESOLINE TAB 25 MG PO SCH (21:10)
[2019-08-28 22:44] LABS: CREATINE KINASE MB 1.3 ng/mL (0-4.0); TROPONIN I 0.05 ng/mL (0-1.5)
[2019-08-29] MEDS: APRESOLINE TAB 25 MG PO SCH ×3 (05:05→21:08)
[2019-08-29 06:11] LABS: BASOPHILS % (AUTO) 0.8 % (0.2-1.0); EOSINOPHILS # (AUTO) 0.1 x10^3/uL (0.0-0.2); EOSINOPHILS % (AUTO) 2.5 % (0.9-2.9); HEMOGLOBIN 7.4 g/dL (13.5-18.0); LYMPHOCYTES # (AUTO) 0.4 X10^3/uL (1.3-2.9); LYMPHOCYTES % (AUTO) 7.2 % (21.0-51.0); MEAN CORPUSCULAR HEMOGLOBIN 31.7 pg (27.0-34.0); MEAN CORPUSCULAR HGB CONC 33.6 g/dL (33.0-35.0); MEAN CORPUSCULAR VOLUME 94.4 fL (80.0-100.0); MEAN PLATELET VOLUME 9.2 fL (7.4-11.0); MONOCYTES # (AUTO) 0.5 x10^3/uL (0.3-0.8); MONOCYTES % (AUTO) 8.6 % (0.0-13.0); NEUTROPHILS % (AUTO) 80.9 % (42.0-75.0); PLATELET COUNT 113 X10^3/uL (150.0-450.0); RED BLOOD COUNT 2.33 X10^6/uL (4.7-6.0); RED CELL DISTRIBUTION WIDTH 15.3 % (11.6-16.5); WHITE BLOOD COUNT 6.1 X10^3/uL (3.6-10.0)
[2019-08-29 06:19] LABS: ALANINE AMINOTRANSFERASE 26 Units/L (12-78); ALBUMIN 3.2 g/dL (3.4-5.0); ALKALINE PHOSPHATASE 47 Units/L (46-116); ASPARTATE AMINO TRANSFERASE 17 Units/L (15-37); BLOOD UREA NITROGEN 45 mg/dL (7-18); CALCIUM 8.7 mg/dL (8.5-10.1); CARBON DIOXIDE 27.9 mmol/L (21-32); CHLORIDE 106 mmol/L (98-107); COR CA(FOR HYPOALB) 9.3 mg/dL (8.5-10.1); SODIUM 142 mmol/L (136-145); TOTAL PROTEIN 6.2 g/dL (6.4-8.2); eGFR NON BLACK RACES 23 (>60)
[2019-08-29 06:29] LABS: PLATELET MORPHOLOGY COMMENT NORMAL (NORMAL)
[2019-08-29] MEDS ORDERED: MILK OF MAGNESIA PO PRN (09:00)
[2019-08-29] MEDS ORDERED: LASIX IVP SCH (09:00)
[2019-08-29] MEDS ORDERED: NITROSTAT SL PRN (09:06)
[2019-08-29] MEDS ORDERED: PATIENT'S HOME MEDICATION (Nifedipine 90 MG) PO SCH (09:15)
[2019-08-29] MEDS: PEPCID TAB 20 MG PO SCH (10:21)
[2019-08-29] MEDS: FLOMAX PO SCH (10:21)
[2019-08-29] MEDS: PROCARDIA XL PO SCH ×2 (10:22)
[2019-08-29] MEDS: PLAVIX PO SCH (10:22)
[2019-08-29] MEDS: ASPIRIN EC 81 MG PO SCH (10:22)
--- NOTE | 2019-08-29 10:31 | DR.H&P ---
H&P History & Physical for Day of: H&P Date: 08/29/19 Chief Complaint Chief Complaint: Shortness of breath Allergies Allergies Allergy/AdvReac Type Severity Reaction Status Date / Time Iodinated Contrast Media Allergy Verified 04/10/19 17:45 ketorolac [From Toradol] Allergy Verified 04/10/19 17:45 lisinopril Allergy Verified 04/10/19 17:45 History of Present Illness History of Present Illness: Pt is a 82 yo m w/ pmhx HFrEF, COPD, HTN, DMT2, presenting after having worsening shortness of breath over the past week. Reports cough, chest pain, chest congestion. Denies fevers, chills, abdominal pain, diarrhea. His daughter was giving him breathing treatments at home for the past few days that was not improving his symptoms. In ED, troponin negative, WBC 6.5, Hgb 8.2, Cr 2.6, CXR fluid within minor fissure and discoid atelectasis right midlung zone. He was given IV Lasix 80mg and started on supplemental O2, he is currently on 2L nc. This morning his blood pressure elevated this morning, his home medications restarted. He reports improvement in his breathing. Continue to monitor. Past Medical History Past Medical History: Arthritis, CHF, COPD, Coronary Artery Disease, Diabetes, Dyslipidemia, GERD and Hypertension Additional Medical History: Prostate Cancer, Bronchitis, Constipation, chronic anemia Past Surgical History Surgical History: Angioplasty/Stents and CABG/Valve Surgery Family History Family Medical History: Diabetes Mellitus, Cancer and Coronary Artery Disease Social History Does patient currently use any type of tobacco product: No Have you used tobacco products in the last 12 months: No Type of Tobacco Use: Cigarettes Does any household member use tobacco: No Alcohol Use: None Drug Use: None Medications Home Medications: Iodinated Contrast Media Allergy (Verified 04/10/19 17:45) ketorolac [From Toradol] Allergy (Verified 04/10/19 17:45) lisinopril Allergy (Verified 04/10/19 17:45) CONTINUE taking the following medications insulin degludec [Tresiba FlexTouch U-100] 15 unit SUBCUT HS 08/28/19 [History] Labs Result Diagrams: 08/29/19 05:20 08/29/19 05:20 Labs: Laboratory WBC 6.1 X10^3/uL (3.6-10.0) 08/29/19 05:20 RBC 2.33 X10^6/uL (4.7-6.0) L 08/29/19 05:20 Hgb 7.4 g/dL (13.5-18.0) L 08/29/19 05:20 Hct 22.0 % (42.0-54.0) L 08/29/19 05:20 MCV 94.4 fL (80.0-100.0) 08/29/19 05:20 MCH 31.7 pg (27.0-34.0) 08/29/19 05:20 MCHC 33.6 g/dL (33.0-35.0) 08/29/19 05:20 RDW 15.3 % (11.6-16.5) 08/29/19 05:20 Plt Count 113 X10^3/uL (150.0-450.0) L 08/29/19 05:20 Plt Count Comment Decreased (ADEQUATE) 08/29/19 05:20 MPV 9.2 fL (7.4-11.0) 08/29/19 05:20 Neut % (Auto) 80.9 % (42.0-75.0) H 08/29/19 05:20 Lymph % (Auto) 7.2 % (21.0-51.0) L 08/29/19 05:20 [place] % (Auto) 8.6 % (0.0-13.0) 08/29/19 05:20 Eos % (Auto) 2.5 % (0.9-2.9) 08/29/19 05:20 Baso % (Auto) 0.8 % (0.2-1.0) 08/29/19 05:20 Neut # (Auto) 5.0 x10^3/uL (2.2-4.8) H 08/29/19 05:20 Lymph # (Auto) 0.4 X10^3/uL (1.3-2.9) L 08/29/19 05:20 [place] # (Auto) 0.5 x10^3/uL (0.3-0.8) 08/29/19 05:20 Eos # (Auto) 0.1 x10^3/uL (0.0-0.2) 08/29/19 05:20 Baso # (Auto) 0.0 X10^3/uL (0.0-0.1) 08/29/19 05:20 Absolute Nucleated RBC 0.0 /100WBC 08/29/19 05:20 Plt Morphology Comment Normal (NORMAL) 08/29/19 05:20 RBC Morphology Normal (NORMAL) 08/29/19 05:20 Sodium 142 mmol/L (136-145) 08/29/19 05:20 Corrected Sodium TNP 08/29/19 05:20 Potassium 3.8 mmol/L (3.5-5.1) 08/29/19 05:20 Chloride 106 mmol/L (98-107) 08/29/19 05:20 Carbon Dioxide 27.9 mmol/L (21-32) 08/29/19 05:20 BUN 45 mg/dL (7-18) H 08/29/19 05:20 Creatinine 2.80 mg/dL (0.70-1.30) H 08/29/19 05:20 Est GFR (MDRD) Af Amer 28 (>60) L 08/29/19 05:20 Est GFR (MDRD) Non-Af 23 (>60) L 08/29/19 05:20 Glucose 101 mg/dL (65-99) H 08/29/19 05:20 POC Glucose (mg/dL) 102 mg/dL (65-99) H 08/29/19 05:33 Calcium 8.7 mg/dL (8.5-10.1) 08/29/19 05:20 Corrected Calcium 9.3 mg/dL (8.5-10.1) 08/29/19 05:20 Total Bilirubin 0.40 mg/dL (0.2-1.0) 08/29/19 05:20 AST 17 Units/L (15-37) 08/29/19 05:20 ALT 26 Units/L (12-78) 08/29/19 05:20 Alkaline Phosphatase 47 Units/L (46-116) 08/29/19 05:20 Creatine Kinase 135 Units/L (39-308) 08/28/19 22:16 CK-MB (CK-2) 1.3 ng/mL (0-4.0) 08/28/19 22:16 CK/CKMB % Calc 1.0 % (<4) 08/28/19 22:16 Troponin I 0.05 ng/mL (0-1.5) 08/28/19 22:16 Total Protein 6.2 g/dL (6.4-8.2) L 08/29/19 05:20 Albumin 3.2 g/dL (3.4-5.0) L 08/29/19 05:20 Globulin 3.0 g/dL (2.5-4.5) 08/29/19 05:20 Albumin/Globulin Ratio 1.1 Ratio (1.1-2.1) 08/29/19 05:20 Specimen Type Clean catch urine 08/28/19 17:54 Urine Color Pale yellow (YELLOW) 08/28/19 17:54 Urine Appearance Clear (CLEAR) 08/28/19 17:54 Urine pH 6.0 (5.0 - 8.0) 08/28/19 17:54 Ur Specific [place] 1.010 (1.000-1.030) 08/28/19 17:54 Urine Protein 2+ (NEGATIVE) 08/28/19 17:54 Urine Glucose (UA) Negative (NEGATIVE) 08/28/19 17:54 Urine Ketones Negative (NEGATIVE) 08/28/19 17:54 Urine Occult Blood Negative (NEGATIVE) 08/28/19 17:54 Urine Nitrite Negative (NEGATIVE) 08/28/19 17:54 Urine Bilirubin Negative (NEGATIVE) 08/28/19 17:54 Urine Urobilinogen Normal (NORMAL) 08/28/19 17:54 Ur Leukocyte Esterase Negative (NEGATIVE) 08/28/19 17:54 Urine RBC 0-2 /HPF (0-3) 08/28/19 17:54 Urine WBC 0-2 /HPF (0-5) 08/28/19 17:54 Ur Squamous Epith Cells Rare /HPF (NEGATIVE) 08/28/19 17:54 Urine Bacteria Negative /HPF (NEGATIVE) 08/28/19 17:54 Ur Culture Indicated? No/not indicated 08/28/19 17:54 Influenza Type A (PCR) Negative (NEGATIVE) 08/28/19 10:38 Influenza Type B (PCR) Negative (NEGATIVE) 08/28/19 10:38 S. pyogenes (TEM-PCR) Not detected (NOT DETECT) 08/28/19 10:38 Review of Systems Constitutional: denies Fever and Chills Eyes: No Symptoms Reported ENT: Nose Congestion Respiratory: Cough and Shortness of Breath Cardiovascular: Chest Pain and Edema Gastrointestinal: No Symptoms Reported Genitourinary: No Symptoms Reported Musculoskeletal: No Symptoms Reported Skin: No Symptoms Reported Neurological: No Symptoms Reported Physical Exam Vital Signs: Temperature 98.5 F Pulse Rate [Apical] 80 Pulse Rate 71 Respiratory Rate 20 Blood Pressure [Right Arm] 189/78 Blood Pressure [Left Arm] 200/90 Blood Pressure 168/74 O2 Sat by Pulse Oximetry 98 Oriented: Normal Eyes: Normal Ear: Normal Nose: Normal Throat: Normal Respiratory: RLL Rales and LLL Rales Cardiovascular: Normal : Normal Auscultation: Bowel Sounds: Normal Palpation: Normal Tenderness: Normal Skin: Normal Musculoskeletal: Normal Psychiatric: Normal Mood Description: Calm Speech Pattern: Clear Assessment/Plan (1) Acute exacerbation of CHF (congestive heart failure): Status: Acute Plan: -Pt received IV Lasix 80mg yesterday in ED and another dose this morning. He has responded well and reports overall improvement in symptoms. Will start home Lasix in the morning and increase dose from 20mg to 40mg. CXR ordered this morning, will follow results. -Echo ordered (2) Anemia: Qualifiers: Anemia type: due to chronic kidney disease Status: Chronic Plan: Known history, Hgb 8.2>7.4, will repeat Hgb this morning. (3) CKD (chronic kidney disease) stage 3, GFR 30-59 ml/min: Status: Acute
[2019-08-29] MEDS ORDERED: DUONEB 0.5 MG/3 MG (3 mL) NEB PRN (10:51)
[2019-08-29] MEDS ORDERED: ZyrTEC TAB 10 MG PO SCH (11:00)
[2019-08-29] MEDS: FLONASE NASAL SPRAY ENOSTRIL SCH (11:21)
[2019-08-29 11:42] LABS: HEMATOCRIT 23.9 % (42.0-54.0); HEMOGLOBIN 7.9 g/dL (13.5-18.0)
[2019-08-29] MEDS ORDERED: HYDRALAZINE 50 MG PO SCH (14:00)
--- NOTE | 2019-08-29 16:45 | RAD ---
CHEST, 1 VIEWHISTORY: pulmonary edema. sobStudy: Single view of the chest.Comparison:NoneFindings:Cardiomegaly and pulmonary edema.No focal consolidations, pleural effusions or pneumothorax. Osseous structures demonstrate no acute abnormality.IMPRESSION:1. Cardiomegaly and pulmonary edema.Electronically signed by: KHUSHBOO RODRIGUEZ (Aug 29, 2019 16:43:09)
[2019-08-29] MEDS: COREG TAB 12.5 MG PO SCH (20:11)
[2019-08-29] MEDS: COLACE CAP 100 MG PO SCH (20:11)
[2019-08-29] MEDS: MILK OF MAGNESIA PO SCH (20:11)
[2019-08-29] MEDS: PROSCAR PO SCH (20:12)
[2019-08-29] MEDS: LIPITOR TAB 40 MG PO SCH (20:12)
[2019-08-29] MEDS ORDERED: PROSCAR PO SCH (21:00)
[2019-08-29] MEDS: HumuLIN R SUBCUT PRN (21:08)
[2019-08-30] MEDS: APRESOLINE TAB 25 MG PO SCH ×3 (05:27→21:19)
[2019-08-30 06:23] LABS: BASOPHILS % (AUTO) 0.9 % (0.2-1.0); EOSINOPHILS # (AUTO) 0.2 x10^3/uL (0.0-0.2); EOSINOPHILS % (AUTO) 4.7 % (0.9-2.9); HEMATOCRIT 22.3 % (42.0-54.0); HEMOGLOBIN 7.4 g/dL (13.5-18.0); LYMPHOCYTES # (AUTO) 0.7 X10^3/uL (1.3-2.9); MEAN CORPUSCULAR HEMOGLOBIN 31.1 pg (27.0-34.0); MEAN CORPUSCULAR HGB CONC 33.4 g/dL (33.0-35.0); MEAN CORPUSCULAR VOLUME 93.2 fL (80.0-100.0); MEAN PLATELET VOLUME 8.8 fL (7.4-11.0); MONOCYTES # (AUTO) 0.5 x10^3/uL (0.3-0.8); MONOCYTES % (AUTO) 10.2 % (0.0-13.0); NEUTROPHILS # (AUTO) 3.8 x10^3/uL (2.2-4.8); NEUTROPHILS % (AUTO) 71.2 % (42.0-75.0); PLATELET COUNT 115 X10^3/uL (150.0-450.0); RED BLOOD COUNT 2.39 X10^6/uL (4.7-6.0); RED CELL DISTRIBUTION WIDTH 15.2 % (11.6-16.5); WHITE BLOOD COUNT 5.3 X10^3/uL (3.6-10.0)
[2019-08-30 06:35] LABS: CALCIUM 8.5 mg/dL (8.5-10.1); CARBON DIOXIDE 30.7 mmol/L (21-32); COR CA(FOR HYPOALB) 9.3 mg/dL (8.5-10.1); CREATININE 2.83 mg/dL (0.70-1.30)
[2019-08-30 07:38] LABS: HYPOCHROMASIA 1+; PLATELET MORPHOLOGY COMMENT NORMAL (NORMAL)
[2019-08-30] MEDS ORDERED: LASIX IVP SCH (09:00)
[2019-08-30] MEDS ORDERED: LASIX PO SCH (09:00)
[2019-08-30] MEDS ORDERED: PROTONIX TAB 40 MG PO SCH (09:00)
[2019-08-30] MEDS ORDERED: ROCEPHIN VIAL 1 GRAM 1 G in NS 100 ML IV + SPIKE MINIBAG* 100 ML IV SCH (09:00)
[2019-08-30 09:11] LABS: ABG BASE EXCESS 7.6 mmol/L (-2.0-2.0); ABG HCO3 32.7 mmol/L (22-26)
[2019-08-30] MEDS: MILK OF MAGNESIA PO SCH ×2 (09:40→21:16)
[2019-08-30] MEDS: FLOMAX PO SCH (09:40)
[2019-08-30] MEDS: PLAVIX PO SCH (09:41)
[2019-08-30] MEDS: PROCARDIA XL PO SCH ×2 (09:42→09:43)
[2019-08-30] MEDS: ASPIRIN EC 81 MG PO SCH (09:42)
[2019-08-30] MEDS: PEPCID TAB 20 MG PO SCH (09:42)
[2019-08-30] MEDS: FLONASE NASAL SPRAY ENOSTRIL SCH (09:44)
[2019-08-30] MEDS: NS 1000 ML 1,000 ML IV SCH (09:48)
[2019-08-30] MEDS: COREG TAB 12.5 MG PO SCH ×2 (09:49→21:18)
[2019-08-30] MEDS: LASIX IVP SCH ×2 (09:50→21:18)
[2019-08-30] MEDS: SOLU-Medrol 40 MG VIAL IVP SCH ×2 (09:54→15:05)
[2019-08-30] MEDS: DUONEB 0.5 MG/3 MG (3 mL) NEB SCH ×2 (13:31→17:04)
[2019-08-30] MEDS ORDERED: HEMOCYTE-PLUS PO SCH (14:00)
[2019-08-30] MEDS ORDERED: SALINE 3% 15 ML NEB TX NEB ONE (14:50)
[2019-08-30] MEDS ORDERED: NS 100 ML IV 100 ML with VENOFER 400 MG IV NR ×2 (16:00)
[2019-08-30] MEDS: HumuLIN R SUBCUT PRN (17:13)
[2019-08-30] MEDS: LIPITOR TAB 40 MG PO SCH (21:17)
[2019-08-30] MEDS: PROSCAR PO SCH (21:18)
[2019-08-30] MEDS: COLACE CAP 100 MG PO SCH (21:18)
[2019-08-31] MEDS: NS 1000 ML 1,000 ML IV SCH (00:25)
[2019-08-31] MEDS: DUONEB 0.5 MG/3 MG (3 mL) NEB SCH ×2 (00:53→05:15)
[2019-08-31] MEDS: APRESOLINE TAB 25 MG PO SCH (05:40)
[2019-08-31 08:12] VITALS: BP 162/70
== END 2019-08-31 08:05 | disposition home health service (06) | DRG 293 ==
LOC: EDBD → ER 09:44 → MED/SURG 12:37
PROVIDERS: ADMIT Internal Medicine; ATTEND Internal Medicine
DX: E78.49 Other hyperlipidemia; I25.10 Atherosclerotic heart disease of native coronary artery without angina pectoris; I50.9 Heart failure, unspecified; R06.02 Shortness of breath; R94.31 Abnormal electrocardiogram [ECG] [EKG]; D63.1 Anemia in chronic kidney disease; I13.0 Hypertensive heart and chronic kidney disease with heart failure and stage 1 through stage 4 chronic kidney disease, or unspecified chronic kidney disease; D50.8 Other iron deficiency anemias; E11.65 Type 2 diabetes mellitus with hyperglycemia; K21.9 Gastro-esophageal reflux disease without esophagitis; E11.22 Type 2 diabetes mellitus with diabetic chronic kidney disease; R07.89 Other chest pain; N18.3 Chronic kidney disease, stage 3 (moderate)
CPT/HCPCS: 36415; 36600; 71010; 71045; 80053; 81001; 82550; 82553; 82607; 82728; 82746; 82803; 83540; 84466; 84484; 85014; 85018; 85025; 87502; 87651; 93005; 93306; 94640; 94760; 96365; 96374; 99284; A4216; A4222; S0138; J0696; J1756; J1815; J1940; J2920; J7030; J7050; J7620

== ENCOUNTER 2019-09-01 02:12 | Inpatient (IN) ==
[2019-09-01 02:25] VITALS: BMI 23.6
--- NOTE | 2019-09-01 02:56 | DR.SOBA ---
HPI Time Seen Time Seen by Provider: 09/01/19 02:54 Primary Care Physician Primary Care Physician: THAI LUCIA HPI Comment HPI Comment: PATIENT IS 82YR OLD MALE IN THE ER WITH HIS DAYGHTER WITH INCREASING SOB, EDEMA AND UNABLE TO LAY DOWN. ALBUTEROL NEB TREATMENT GIVEN, SLIGHT IMPROVEMENT. 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 PATIENT HAVE SOME CHEST DISCOMFORT ALSO. NO FEVER. Complaints Chief Complaint Doctors Comments: SHORTNESS OF BRATH TONIGHT NOT ABLE TO LAY DOWN. Chief Complaint:: SHORTNESS OF BREATH TONIGHT; COULDN'T SLEEP; PATIENT JUST DISCHARGED TODAY FROM [facility]. APPT AT [facility] AFTER DISCHARGE Self Treatment fo Chief Complaint: ALBUTEROL TREATMENT Reviewed Nurses Notes Reviewed: Yes Source History Provided: Patient Mode of Arrival Mode of Arrival: Wheelchair Timing Onset of Chief Complaint: 08/31/19 Duration Onset: p.m. Duration: Hours Context Onset:: At Rest and With Light Exertion PE Risk Factors:: None History of:: COPD and CHF Currently on:: Inhaled Bronchodilators Prehospital Care:: Inhaled B2 and Furosemide Modifying Factors Worsens:: Exertion Improves:: Rest and Sitting Up Associated Signs and Symptoms Associated Signs and Symptoms: Wheeze, Cough, Chest Pain and Leg Swelling If Chest Pain Quality: Pressure like Location: Substernal If Cough Cough: Productive and Clear PMH PMH Past Medical History: Yes Past Medical History: COPD and Coronary Artery Disease Past Surgical History: No Surgical History: Angioplasty/Stents and CABG/Valve Surgery Family History History of Family Medical Conditions: No Family Medical History: Diabetes Mellitus, Cancer and Coronary Artery Disease Social History Alcohol Use: None Do you use any recreational Drugs:: No Lives With: Family Lives Where: Home infectious screening Have you had fever, night sweats or hemotysis?: No Have you traveled outside the country in the last 6 months?: No Isolation: Standard ROS Review of Systems Constitutional: See HPI, Weakness and Fatigue; negative Fever Eyes: No Symptoms Reported and See HPI ENTM: See HPI and Nose Congestion; negative Ear Pain, Nose Discharge and Throat Pain Respiratoy: See HPI, Productive Cough, Short of Breath and Wheezing; negative Hemoptysis Cardiovascular: See HPI, Chest Pain and Edema Gastrointestinal/Abdominal: See HPI and Nausea; negative Abdominal Pain, Constipation, Diarrhea and Vomiting Genitourinary: No Symptoms Reported Neurological: Headache, Weakness and Dizziness Musculoskeletal: See HPI, Back Pain, Muscle Pain and Chest wall Integumentary: No Symptoms Reported and See HPI; negative Change in Color, Rash and Juandice Hematologic/Lymphatic: No Symptoms Reported; negative Easy Bruising and Swollen Glands Endocrine: See HPI and Decreased Appetite Psychiatric: No Symptoms Reported and See HPI All Other Systems: Reviewed and Negative PE Vital Signs Vitals: Temperature 97.8 F Pulse Rate [Right Radial] 61 Pulse Rate 70 Respiratory Rate 18 Blood Pressure [Right Arm] 193/82 Blood Pressure [Left Arm] 162/70 Blood Pressure 236/98 O2 Sat by Pulse Oximetry 97 General Limitations: No Limitations General Appearance: Alert and In Distress Head Head Exam: Normal Inspection and Atraumatic Eyes Eye exam: Normal Appearance and PERRL; negative Scleral Icterus and Conjunctival Injection ENT ENT Exam: Normal Oropharynx, Normal External Ear Exam and TM's Normal Bilater ally Neck Neck Exam: Normal Inspection and Trachea Midline; negative Tenderness and Lymphadenopathy Chest Chest Inspection: Normal Inspection and Symmetric Chest Wall Rise; negative Tenderness Respiratory Respiratory Exam: Normal Lung Sounds Bilat, Accessory Muscle Use and Respiratory Distress; negative Chest Wall Tenderness Respiratory Exam: Bilateral: Wheezing and Bilateral: Rhonchi, Upper: Wheezing and Lower: Wheezing and Lower: Rhonchi Cardiovascular Cardiovascular Exam: Regular Rate, Normal Rhythm, Normal Heart Sounds and +S3; negative Systolic Murmur and Diastolic Murmur Abdominal Exam Abdominal Exam: Normal Inspection, Normal Bowel Sounds and Soft; negative Tenderness Extremities Extremities Exam: Normal Capillary Refill and Edema; negative Tenderness and Calf Tenderness Back Back Exam: Normal Inspection; negative Tenderness, (R) CVA Tenderness, (L) CVA Tenderness, Paraspinal Tenderness and Vertebral Tenderness Neurologic Neurological Exam: Alert, Oriented X3 and CN II-XII Intact; negative Motor Sensory Deficit Psychiatric Psychiatric Exam: Normal Affect and Normal Mood Skin Skin Exam: Normal Color and Erythema MDM Additional Information Obtained Additional Information Obtained From: Family Differential Diagnosis Differential Diagnosis: CHF, COPD, Dysrhythmia, Hyponatremia, Mycardial Infarction, Pneumonia, Respiratory Failure, Respiratory Insufficiency and Sinusitis COURSE Treatment Treatment: SEE ORDERS. Consultation Consultation Comments: DISCUSSED PATIENT WITH DR. VAN. HE WILL ADMIT P ATIENT. Education/Counseling Education/Counseling: Patient and Family Educated On: Diagnosis ROR Labs Reviewed Laboratory Results Reviewed?: Yes Result Diagrams: 09/02/19 05:15 09/02/19 05:15 Laboratory: WBC 5.3 X10^3/uL (3.6-10.0) 09/01/19 02:43 RBC 2.56 X10^6/uL (4.7-6.0) L 09/01/19 02:43 Hgb 7.9 g/dL (13.5-18.0) L 09/01/19 02:43 Hct 23.8 % (42.0-54.0) L 09/01/19 02:43 MCV 92.7 fL (80.0-100.0) 09/01/19 02:43 MCH 31.0 pg (27.0-34.0) 09/01/19 02:43 MCHC 33.4 g/dL (33.0-35.0) 09/01/19 02:43 RDW 15.2 % (11.6-16.5) 09/01/19 02:43 Plt Count 140 X10^3/uL (150.0-450.0) L 09/01/19 02:43 Plt Count Comment Adequate (ADEQUATE) 09/01/19 02:43 MPV 8.7 fL (7.4-11.0) 09/01/19 02:43 Neut % (Auto) 71.8 % (42.0-75.0) 09/01/19 02:43 Lymph % (Auto) 14.9 % (21.0-51.0) L 09/01/19 02:43 [place] % (Auto) 8.1 % (0.0-13.0) 09/01/19 02:43 Eos % (Auto) 4.3 % (0.9-2.9) H 09/01/19 02:43 Baso % (Auto) 0.9 % (0.2-1.0) 09/01/19 02:43 Neut # (Auto) 3.8 x10^3/uL (2.2-4.8) 09/01/19 02:43 Lymph # (Auto) 0.8 X10^3/uL (1.3-2.9) L 09/01/19 02:43 [place] # (Auto) 0.4 x10^3/uL (0.3-0.8) 09/01/19 02:43 Eos # (Auto) 0.2 x10^3/uL (0.0-0.2) 09/01/19 02:43 Baso # (Auto) 0.0 X10^3/uL (0.0-0.1) 09/01/19 02:43 Absolute Nucleated RBC 0.0 /100WBC 09/01/19 02:43 Plt Morphology Comment Normal (NORMAL) 09/01/19 02:43 RBC Morphology Abnormal (NORMAL) 09/01/19 02:43 Hypochromasia 1+ A 09/01/19 02:43 Sample Site Rr 09/01/19 06:38 ABG pH 7.430 (7.35-7.45) 09/01/19 06:38 ABG pCO2 49.0 mmHg (35.0-45.0) H 09/01/19 06:38 ABG pO2 76.0 mmHg (80.0-100.0) L 09/01/19 06:38 ABG HCO3 32.5 mmol/L (22-26) H* 09/01/19 06:38 ABG O2 Saturation 95.0 % (90-100) 09/01/19 06:38 ABG Base Excess 7.0 mmol/L (-2.0-2.0) H 09/01/19 06:38 Mitch Test P 09/01/19 06:38 A-a Gradient 62.0 mmHg 09/01/19 06:38 FiO2 28.0 09/01/19 06:38 Blood Gas Comments Maria Antonia well 09/01/19 06:38 Sodium 141 mmol/L (136-145) 09/01/19 02:43 Sodium Cancelled 09/01/19 02:43 Corrected Sodium Cancelled 09/01/19 02:43 Corrected Sodium TNP 09/01/19 02:43 Potassium 3.9 mmol/L (3.5-5.1) 09/01/19 02:43 Potassium Cancelled 09/01/19 02:43 Chloride 103 mmol/L (98-107) 09/01/19 02:43 Chloride Cancelled 09/01/19 02:43 Carbon Dioxide 31.7 mmol/L (21-32) 09/01/19 02:43 Carbon Dioxide Cancelled 09/01/19 02:43 BUN 47 mg/dL (7-18) H 09/01/19 02:43 BUN Cancelled 09/01/19 02:43 Creatinine 2.75 mg/dL (0.70-1.30) H 09/01/19 02:43 Creatinine Cancelled 09/01/19 02:43 Est GFR (MDRD) Af Amer 29 (>60) L 09/01/19 02:43 Est GFR (MDRD) Af Amer Cancelled 09/01/19 02:43 Est GFR (MDRD) Non-Af 24 (>60) L 09/01/19 02:43 Est GFR (MDRD) Non-Af Cancelled 09/01/19 02:43 Glucose 104 mg/dL (65-99) H 09/01/19 02:43 Glucose Cancelled 09/01/19 02:43 Calcium 8.7 mg/dL (8.5-10.1) 09/01/19 02:43 Calcium Cancelled 09/01/19 02:43 Corrected Calcium 9.3 mg/dL (8.5-10.1) 09/01/19 02:43 Corrected Calcium Cancelled 09/01/19 02:43 Total Bilirubin 0.30 mg/dL (0.2-1.0) 09/01/19 02:43 Total Bilirubin Cancelled 09/01/19 02:43 AST 17 Units/L (15-37) 09/01/19 02:43 AST Cancelled 09/01/19 02:43 ALT 25 Units/L (12-78) 09/01/19 02:43 ALT Cancelled 09/01/19 02:43 Alkaline Phosphatase 52 Units/L (46-116) 09/01/19 02:43 Alkaline Phosphatase Cancelled 09/01/19 02:43 Creatine Kinase 120 Units/L (39-308) 09/01/19 02:43 CK-MB (CK-2) 1.2 ng/mL (0-4.0) 09/01/19 02:43 CK/CKMB % Calc 1.0 % (<4) 09/01/19 02:43 Troponin I 0.05 ng/mL (0-1.5) 09/01/19 02:43 B-Natriuretic Peptide 1270 pg/mL (0-79) H* 09/01/19 02:43 Total Protein 6.5 g/dL (6.4-8.2) 09/01/19 02:43 Total Protein Cancelled 09/01/19 02:43 Albumin 3.3 g/dL (3.4-5.0) L 09/01/19 02:43 Albumin Cancelled 09/01/19 02:43 Globulin 3.2 g/dL (2.5-4.5) 09/01/19 02:43 Globulin Cancelled 09/01/19 02:43 Albumin/Globulin Ratio 1.0 Ratio (1.1-2.1) L 09/01/19 02:43 Albumin/Globulin Ratio Cancelled 09/01/19 02:43 Specimen Type Clean catch urine 09/01/19 06:31 Urine Color Yellow (YELLOW) 09/01/19 06:31 Urine Appearance Clear (CLEAR) 09/01/19 06:31 Urine pH 6.0 (5.0 - 8.0) 09/01/19 06:31 Ur Specific [place] 1.005 (1.000-1.030) 09/01/19 06:31 Urine Protein 3+ (NEGATIVE) 09/01/19 06:31 Urine Glucose (UA) Negative (NEGATIVE) 09/01/19 06:31 Urine Ketones Negative (NEGATIVE) 09/01/19 06:31 Urine Occult Blood Negative (NEGATIVE) 09/01/19 06:31 Urine Nitrite Negative (NEGATIVE) 09/01/19 06:31 Urine Bilirubin Negative (NEGATIVE) 09/01/19 06:31 Urine Urobilinogen Normal (NORMAL) 09/01/19 06:31 Ur Leukocyte Esterase Negative (NEGATIVE) 09/01/19 06:31 Urine RBC None seen /HPF (0-3) 09/01/19 06:31 Urine WBC None seen /HPF (0-5) 09/01/19 06:31 Ur Squamous Epith Cells Negative /HPF (NEGATIVE) 09/01/19 06:31 Urine Bacteria Negative /HPF (NEGATIVE) 09/01/19 06:31 Urine Mucus Few /HPF (NEGATIVE) 09/01/19 06:31 Ur Culture Indicated? No/not indicated 09/01/19 06:31 XRAY XRAY Interpreted by: Radiologist XRAY Findings: REPORT NOTED AND DISCUSSED WITH PATIENT. EKG Rate: 69 Block: 1, AVB and RBBB Hypertrophy: None ST: Nonsp Opioid Opioid Risk Tool Age ([place] if 16-45): No History of Preadolescent Sexual Abuse: No Total: 0 Total Score Risk Category: Low Risk Copyright: Leandro SANCHEZ predicting aberrant behaviors Diagnosis Discharge Problem: CHF (congestive heart failure) Qualifiers: Heart failure type: combined systolic and diastolic Heart failure chronicity: acute on chronic Qualified Code(s): I50.43 - Acute on chronic combined systolic (congestive) and diastolic (congestive) heart failure COPD (chronic obstructive pulmonary disease) Qualifiers: COPD type: COPD with acute exacerbation Qualified Code(s): J44.1 - Chronic obstructive pulmonary disease with (acute) exacerbation Pneumonia Qualifiers: Pneumonia type: due to unspecified organism Laterality: right Lung location: lower lobe of lung Qualified Code(s): J18.9 - Pneumonia, unspecified organism
[2019-09-01 03:05] LABS: ALANINE AMINOTRANSFERASE 25 Units/L (12-78); ALBUMIN 3.3 g/dL (3.4-5.0); ALKALINE PHOSPHATASE 52 Units/L (46-116); ASPARTATE AMINO TRANSFERASE 17 Units/L (15-37); BLOOD UREA NITROGEN 47 mg/dL (7-18); CALCIUM 8.7 mg/dL (8.5-10.1); CARBON DIOXIDE 31.7 mmol/L (21-32); CHLORIDE 103 mmol/L (98-107); COR CA(FOR HYPOALB) 9.3 mg/dL (8.5-10.1); CREATININE 2.75 mg/dL (0.70-1.30); SODIUM 141 mmol/L (136-145); TOTAL PROTEIN 6.5 g/dL (6.4-8.2); eGFR NON BLACK RACES 24 (>60)
[2019-09-01] MEDS ORDERED: CATAPRES TAB 0.2 MG PO ONE (03:09)
[2019-09-01 03:11] LABS: BASOPHILS % (AUTO) 0.9 % (0.2-1.0); EOSINOPHILS # (AUTO) 0.2 x10^3/uL (0.0-0.2); EOSINOPHILS % (AUTO) 4.3 % (0.9-2.9); HEMATOCRIT 23.8 % (42.0-54.0); HEMOGLOBIN 7.9 g/dL (13.5-18.0); LYMPHOCYTES # (AUTO) 0.8 X10^3/uL (1.3-2.9); LYMPHOCYTES % (AUTO) 14.9 % (21.0-51.0); MEAN CORPUSCULAR HGB CONC 33.4 g/dL (33.0-35.0); MEAN CORPUSCULAR VOLUME 92.7 fL (80.0-100.0); MEAN PLATELET VOLUME 8.7 fL (7.4-11.0); MONOCYTES # (AUTO) 0.4 x10^3/uL (0.3-0.8); MONOCYTES % (AUTO) 8.1 % (0.0-13.0); NEUTROPHILS # (AUTO) 3.8 x10^3/uL (2.2-4.8); NEUTROPHILS % (AUTO) 71.8 % (42.0-75.0); PLATELET COUNT 140 X10^3/uL (150.0-450.0); RED BLOOD COUNT 2.56 X10^6/uL (4.7-6.0); RED CELL DISTRIBUTION WIDTH 15.2 % (11.6-16.5); WHITE BLOOD COUNT 5.3 X10^3/uL (3.6-10.0)
[2019-09-01 03:20] LABS: HYPOCHROMASIA 1+; PLATELET MORPHOLOGY COMMENT NORMAL (NORMAL)
[2019-09-01] MEDS ORDERED: CATAPRES TAB 0.2 MG ONE (03:25)
--- NOTE | 2019-09-01 03:25 | RAD ---
HISTORYSOBSTUDYCHEST, 1 [id number]/29/19FINDINGSTrachea is midline. Heart size is moderately enlarged. There is increasing interstitial and alveolar opacities within both lungs most severely affecting the perihilar regions of both lungs. No large effusion. No pneumothorax. Previous median sternotomy changes are again noted. No acute osseous abnormalityIMPRESSIONCardiomegaly with worsening bilateral interstitial and alveolar opacities most severely affecting the perihilar regions likely represents pulmonary interstitial edema, atypical/viral pneumonia is a consideration however felt less likely.Electronically signed by: JAVAN TOLENTINO (Sep 01, 2019 03:23:25)
[2019-09-01 03:38] LABS: CREATINE KINASE MB 1.2 ng/mL (0-4.0); TROPONIN I 0.05 ng/mL (0-1.5)
[2019-09-01] MEDS ORDERED: LASIX IVP ONE ×2 (04:07→04:39)
[2019-09-01] MEDS ORDERED: ROCEPHIN VIAL 1 GRAM 1 G in NS 100 ML IV + SPIKE MINIBAG* 100 ML IV ONE (04:08)
[2019-09-01] MEDS ORDERED: ROCEPHIN VIAL 1 GRAM ONE (04:39)
[2019-09-01] MEDS ORDERED: SOLU-Medrol 125 MG VIAL IVP ONE (06:38)
[2019-09-01] MEDS ORDERED: DUONEB 0.5 MG/3 MG (3 mL) NEB ONE ×2 (06:38→06:47)
[2019-09-01 06:40] LABS: APPEARANCE,URINE CLEAR (CLEAR); BILIRUBIN,URINE NEGATIVE (NEGATIVE); BLOOD/HEMOGLOBIN,URINE NEGATIVE (NEGATIVE); COLOR,URINE YELLOW (YELLOW); GLUCOSE, URINE NEGATIVE (NEGATIVE); KETONES,URINE NEGATIVE (NEGATIVE); LEUKOCYTE ESTERASE ,URINE NEGATIVE (NEGATIVE); NITRITES,URINE NEGATIVE (NEGATIVE); PROTEIN,URINE 3+ (NEGATIVE); UROBILINOGEN,URINE NORMAL (NORMAL)
[2019-09-01 06:46] LABS: BACTERIA,URINE NEGATIVE /HPF (NEGATIVE); MUCUS,URINE FEW /HPF (NEGATIVE); RBC,URINE NONE SEEN /HPF (0-3); SQUAMOUS EPITHELIAL CELL,UR NEGATIVE /HPF (NEGATIVE)
[2019-09-01] MEDS ORDERED: SOLU-Medrol 125 MG VIAL ONE (06:53)
[2019-09-01] MEDS ORDERED: XOPENEX 1.25 MG/3 ML NEBULE NEB PRN (07:00)
[2019-09-01 07:07] LABS: ABG ALLEN TEST P; ABG HCO3 32.5 mmol/L (22-26)
[2019-09-01 08:12] LABS: CKMB % 1.4 % (<4); CREATINE KINASE MB 1.4 ng/mL (0-4.0); TROPONIN I 0.06 ng/mL (0-1.5)
[2019-09-01] MEDS ORDERED: NITROSTAT SL PRN (12:53)
[2019-09-01] MEDS: PULMICORT NEB TX 0.5 MG NEB SCH ×2 (12:59→20:35)
--- NOTE | 2019-09-01 14:33 | DR.H&P ---
H&P - History & Physical for Day of: H&P Date: 09/01/19 - Chief Complaint Chief Complaint: SOB, WEAKNESS - History of Present Illness History of Present Illness: PATIENT IS 82YR OLD MALE ER ADMISSION AFTER PRESENTING WITH HIS DAUGHTER WITH INCREASING SOB, EDEMA AND UNABLE TO LAY DOWN. ALBUTEROL NEB TREATMENT GIVEN, SLIGHT IMPROVEMENT. 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 PATIENT HAVE SOME CHEST DISCOMFORT ALSO. NO FEVER. - Past Medical History Past Medical History: Anxiety, Arthritis, CHF, COPD, Coronary Artery Disease, Diabetes, Hypertension, Renal Disease Additional Medical History: Prostate Cancer, Bronchitis, Constipation, chronic anemia - Past Surgical History Surgical History: CABG/Valve Surgery - Family History Family Medical History: Diabetes Mellitus, Coronary Artery Disease, Heart Failure, Hypertension - Social History Does patient currently use any type of tobacco product: No Have you used tobacco products in the last 12 months: No Type of Tobacco Use: None Does any household member use tobacco: No Alcohol Use: None Drug Use: None - Medications Home Medications: Iodinated Contrast Media Allergy (Verified 09/01/19 09:44) ketorolac [From Toradol] Allergy (Verified 09/01/19 09:44) lisinopril Allergy (Verified 09/01/19 09:44) - Review of Systems Constitutional: Weakness Eyes: No Symptoms Reported ENT: No Symptoms Reported Respiratory: Shortness of Breath, SOB with Excertion Cardiovascular: Chest Pain, Edema Gastrointestinal: No Symptoms Reported Musculoskeletal: Back Pain Skin: No Symptoms Reported Neurological: Weakness - Physical Exam Vital Signs: Temperature 97.8 F Pulse Rate [Right Radial] 61 Pulse Rate 70 Respiratory Rate 18 Blood Pressure [Right Arm] 193/82 Blood Pressure [Left Arm] 192/84 Blood Pressure 183/81 O2 Sat by Pulse Oximetry 97 Oriented: Person Eyes: Normal Ear: Normal Nose: Normal Throat: Normal Respiratory: Diminished Throughout Cardiovascular: Normal, Murmur, Edema : Normal Auscultation: Bowel Sounds: Normal Palpation: Normal Tenderness: Normal Musculoskeletal: Right, Left, Knee, Back:Thoracic, Back:Lumbar Psychiatric: Anxiety Affect: Anxious Speech Pattern: Clear, Appropriate - Assessment/Plan (1) Acute exacerbation of CHF (congestive heart failure) Status: Acute Plan: ADMIT, CARDIAC MONITORING. RESP THERAPY, SUPPLEMENTAL O2. CONTINUE HOME MEDICATION, BP CONTROL RESP THERAPY. CONSULT CASE MANAGEMENT FOR NH PLACEMENT OPTIONS DUE TO AFTT AND WEAKNESS. (2) COPD (chronic obstructive pulmonary disease) with acute bronchitis Status: Chronic (3) Acute on chronic renal failure Status: Acute (4) Diabetes type 2, controlled Status: Acute (5) Accelerated hypertension Status: Chronic (6) BPH (benign prostatic hyperplasia) Status: Chronic (7) Adult failure to thrive Status: Acute - Allergies Allergies/Adverse Reactions: Allergies Allergy/AdvReac Type Severity Reaction Status Date / Time Iodinated Contrast Media Allergy Verified 09/01/19 09:44 ketorolac [From Toradol] Allergy Verified 09/01/19 09:44 lisinopril Allergy Verified 09/01/19 09:44
[2019-09-01] MEDS: ROCEPHIN VIAL 1 GRAM 1 G in NS 100 ML IV + SPIKE MINIBAG* 100 ML IV SCH (15:01)
[2019-09-01] MEDS: CATAPRES-TTS-2 TD SCH (15:02)
[2019-09-01] MEDS: ASPIRIN EC 81 MG PO SCH (15:18)
[2019-09-01] MEDS: COREG TAB 12.5 MG PO SCH ×2 (15:18→21:16)
[2019-09-01] MEDS: APRESOLINE TAB 25 MG PO SCH ×2 (15:19→21:16)
[2019-09-01] MEDS: PROCARDIA XL PO SCH ×2 (15:19→15:29)
[2019-09-01] MEDS: PLAVIX PO SCH (15:29)
[2019-09-01] MEDS: LASIX PO SCH (15:29)
[2019-09-01] MEDS: MICRO K EXTEN CAP 10 MEQ PO SCH (15:30)
[2019-09-01] MEDS: PROSCAR PO SCH ×2 (15:31→21:17)
[2019-09-01] MEDS: LIPITOR TAB 40 MG PO SCH ×2 (15:31→21:16)
[2019-09-01 16:28] LABS: CKMB % 1.4 % (<4); CREATINE KINASE MB 1.2 ng/mL (0-4.0); TROPONIN I 0.03 ng/mL (0-1.5)
[2019-09-01] MEDS: HumuLIN R SUBCUT PRN (16:30)
[2019-09-01] MEDS ORDERED: INSULIN DEGLUDEC SUBCUT SCH (21:00)
[2019-09-01] MEDS: SNACK - Diabetic Appropriate PO SCH (21:14)
[2019-09-02] MEDS: APRESOLINE TAB 25 MG PO SCH ×3 (05:35→21:13)
[2019-09-02 06:15] LABS: BASOPHILS % (AUTO) 0.7 % (0.2-1.0); EOSINOPHILS # (AUTO) 0.1 x10^3/uL (0.0-0.2); HEMATOCRIT 21.2 % (42.0-54.0); HEMOGLOBIN 7.1 g/dL (13.5-18.0); LYMPHOCYTES # (AUTO) 0.6 X10^3/uL (1.3-2.9); LYMPHOCYTES % (AUTO) 11.7 % (21.0-51.0); MEAN CORPUSCULAR HGB CONC 33.5 g/dL (33.0-35.0); MEAN CORPUSCULAR VOLUME 92.5 fL (80.0-100.0); MEAN PLATELET VOLUME 8.8 fL (7.4-11.0); MONOCYTES # (AUTO) 0.7 x10^3/uL (0.3-0.8); MONOCYTES % (AUTO) 12.4 % (0.0-13.0); NEUTROPHILS # (AUTO) 3.9 x10^3/uL (2.2-4.8); NEUTROPHILS % (AUTO) 74.2 % (42.0-75.0); PLATELET COUNT 128 X10^3/uL (150.0-450.0); RED BLOOD COUNT 2.29 X10^6/uL (4.7-6.0); RED CELL DISTRIBUTION WIDTH 15.1 % (11.6-16.5); WHITE BLOOD COUNT 5.3 X10^3/uL (3.6-10.0)
[2019-09-02 06:26] LABS: ALANINE AMINOTRANSFERASE 24 Units/L (12-78); ALKALINE PHOSPHATASE 46 Units/L (46-116); ASPARTATE AMINO TRANSFERASE 17 Units/L (15-37); BLOOD UREA NITROGEN 52 mg/dL (7-18); CALCIUM 8.7 mg/dL (8.5-10.1); CARBON DIOXIDE 28.8 mmol/L (21-32); CHLORIDE 105 mmol/L (98-107); COR CA(FOR HYPOALB) 9.5 mg/dL (8.5-10.1); CREATININE 2.81 mg/dL (0.70-1.30); MAGNESIUM 2.7 mg/dL (1.7-2.9); SODIUM 141 mmol/L (136-145); eGFR NON BLACK RACES 23 (>60)
[2019-09-02 06:45] LABS: HYPOCHROMASIA 1+; PLATELET MORPHOLOGY COMMENT NORMAL (NORMAL)
[2019-09-02] MEDS ORDERED: NS 250 ML IV 250 ML IV ONE (08:01)
[2019-09-02] MEDS: ROCEPHIN VIAL 1 GRAM 1 G in NS 100 ML IV + SPIKE MINIBAG* 100 ML IV SCH (08:11)
[2019-09-02] MEDS: ASPIRIN EC 81 MG PO SCH (08:12)
[2019-09-02] MEDS: PROCARDIA XL PO SCH ×2 (08:12→08:13)
[2019-09-02] MEDS: PROTONIX TAB 40 MG PO SCH (08:12)
[2019-09-02] MEDS: PEPCID TAB 20 MG PO SCH (08:12)
[2019-09-02] MEDS: PLAVIX PO SCH (08:12)
[2019-09-02] MEDS: COREG TAB 12.5 MG PO SCH ×2 (08:13→21:13)
[2019-09-02] MEDS: LASIX PO SCH (08:13)
[2019-09-02] MEDS ORDERED: PATIENT'S HOME MEDICATION (Nifedipine 90 MG) PO SCH (09:00)
[2019-09-02] MEDS: PULMICORT NEB TX 0.5 MG NEB SCH ×2 (09:11→20:25)
[2019-09-02] MEDS: LASIX IVP SCH ×2 (10:33→21:13)
[2019-09-02] MEDS: HEMOCYTE-PLUS PO SCH (10:33)
[2019-09-02] MEDS ORDERED: SALINE 3% 15 ML NEB TX NEB ONE (11:41)
[2019-09-02] MEDS: MICRO K EXTEN CAP 10 MEQ PO SCH (11:41)
[2019-09-02] MEDS: XOPENEX 1.25 MG/3 ML NEBULE NEB PRN ×2 (11:50→20:25)
[2019-09-02] MEDS ORDERED: BENADRYL INJ 50 MG VIAL ONE (16:18)
[2019-09-02] MEDS ORDERED: BENADRYL INJ 50 MG VIAL IVP ONE (16:20)
--- NOTE | 2019-09-02 17:57 | DR.H&P ---
H&P - History & Physical for Day of: H&P Date: 09/02/19 - Chief Complaint Chief Complaint: PT IS 84 BM ER ADMISSION WITH SOB DUE TO CHF AND COPD EXACERBATION. PT HAS PMH OF CRF WITH IRON DEFICIENCY ANEMIA. PT RECEIVED IV IRON INFUSION ON FRIDAY AND STRATED ON HEMOCYTE PLUS, WHICH WE RESUMED TODAY. PT HGB 7.1 THIS AM, OCCULT STOOL NOT OBTAINED AT THIS TIME, PT DENIES ANY TARRY STOOL OR BLOOD IN STOOL. DISCUSSED POSSIBLE TRANSFUSION WITH HGN <7. PT DENIES ANY SOB THIS AM, DIFFUSE LOWER EXPIRATORY WHEEZES ON EXAM. NURSING STAFF REPORTS PT BEING ANXIOUS. PT IS CURRENTLY ON RESP THERAPY AND SUPPLEMENTAL O2, STRICT I & OS, CARDIAC MONITORING AND BP CONTROL. - Past Medical History Past Medical History: Anxiety, Arthritis, CHF, COPD, Coronary Artery Disease, Diabetes, Hypertension, Renal Disease Additional Medical History: Prostate Cancer, Bronchitis, Constipation, chronic anemia - Past Surgical History Surgical History: CABG/Valve Surgery - Family History Family Medical History: Diabetes Mellitus, Coronary Artery Disease, Heart Failure, Hypertension - Social History Does patient currently use any type of tobacco product: No Have you used tobacco products in the last 12 months: No Type of Tobacco Use: None Does any household member use tobacco: No Alcohol Use: None Drug Use: None - Medications Home Medications: Iodinated Contrast Media Allergy (Verified 09/01/19 09:44) ketorolac [From Toradol] Allergy (Verified 09/01/19 09:44) lisinopril Allergy (Verified 09/01/19 09:44) - Physical Exam Vital Signs: Temperature 97.7 F Pulse Rate [Right Radial] 66 Pulse Rate 56 Respiratory Rate 24 Blood Pressure [Right Arm] 193/82 Blood Pressure [Left Arm] 166/78 Blood Pressure 183/81 O2 Sat by Pulse Oximetry 97 Oriented: Person - Assessment/Plan (1) Acute exacerbation of CHF (congestive heart failure) Status: Acute (2) COPD (chronic obstructive pulmonary disease) with acute bronchitis Status: Chronic (3) Acute on chronic renal failure Status: Acute (4) Diabetes type 2, controlled Status: Acute (5) Accelerated hypertension Status: Chronic (6) BPH (benign prostatic hyperplasia) Status: Chronic (7) Adult failure to thrive Status: Acute - Allergies Allergies/Adverse Reactions: Allergies Allergy/AdvReac Type Severity Reaction Status Date / Time Iodinated Contrast Media Allergy Verified 09/01/19 09:44 ketorolac [From Toradol] Allergy Verified 09/01/19 09:44 lisinopril Allergy Verified 09/01/19 09:44
--- NOTE | 2019-09-02 17:59 | PCM.PROG ---
Progress Note - Progress Note for Day of Date of Exam: 09/02/19 - Subjective Subjective: PT IS 84 BM ER ADMISSION WITH SOB DUE TO CHF AND COPD EXACERBATION. PT HAS PMH OF CRF WITH IRON DEFICIENCY ANEMIA. PT RECEIVED IV IRON INFUSION ON FRIDAY AND STRATED ON HEMOCYTE PLUS, WHICH WE RESUMED TODAY. PT HGB 7.1 THIS AM, OCCULT STOOL NOT OBTAINED AT THIS TIME, PT DENIES ANY TARRY STOOL OR BLOOD IN STOOL. DISCUSSED POSSIBLE TRANSFUSION WITH HGN <7. PT DENIES ANY SOB THIS AM, DIFFUSE LOWER EXPIRATORY WHEEZES ON EXAM. NURSING STAFF REPORTS PT BEING ANXIOUS. PT IS CURRENTLY ON RESP THERAPY AND SUPPLEMENTAL O2, STRICT I & OS, CARDIAC MONITORING AND BP CONTROL. - Past Medical Family Social History Past Med/Fam/Surg Hx: No changes since H&P Allergies: Allergies Iodinated Contrast Media Allergy (Verified 09/01/19 09:44) ketorolac [From Toradol] Allergy (Verified 09/01/19 09:44) lisinopril Allergy (Verified 09/01/19 09:44) - Review of Systems ROS: No change since H&P - Vital Signs and I&O's Vital Signs: Temperature 97.7 F Pulse Rate [Right Radial] 66 Pulse Rate 56 Respiratory Rate 24 Blood Pressure [Right Arm] 193/82 Blood Pressure [Left Arm] 166/78 Blood Pressure 183/81 O2 Sat by Pulse Oximetry 97 Intake and Output: Intake & Output 08/31/19 09/01/19 09/02/19 09/03/19 11:59 11:59 11:59 11:59 Intake Total 990 / 990 680 / 680 Output Total 1150 / 1150 Balance 989 / 989 -470 / -470 - Physical Exam Oriented: Person Eyes: Normal Ear: Normal Nose: Normal Throat: Normal Respiratory: Diminished, Wheezes. negative: Rales Cardiovascular: Normal, Murmur, Edema : Normal Auscultation: Bowel Sounds: Normal Tenderness: Normal Skin: Normal Musculoskeletal: Right, Left, Knee, Back:Thoracic, Back:Lumbar Psychiatric: Anxiety Affect: Anxious Speech Pattern: Clear, Appropriate - Laboratory and Diagnostics Result Diagrams: 09/02/19 05:15 09/02/19 05:15 Labs: Laboratory WBC 5.3 X10^3/uL (3.6-10.0) 09/02/19 05:15 RBC 2.29 X10^6/uL (4.7-6.0) L 09/02/19 05:15 Hgb 7.1 g/dL (13.5-18.0) L 09/02/19 05:15 Hct 21.2 % (42.0-54.0) L 09/02/19 05:15 MCV 92.5 fL (80.0-100.0) 09/02/19 05:15 MCH 31.0 pg (27.0-34.0) 09/02/19 05:15 MCHC 33.5 g/dL (33.0-35.0) 09/02/19 05:15 RDW 15.1 % (11.6-16.5) 09/02/19 05:15 Plt Count 128 X10^3/uL (150.0-450.0) L 09/02/19 05:15 Plt Count Comment Decreased (ADEQUATE) 09/02/19 05:15 MPV 8.8 fL (7.4-11.0) 09/02/19 05:15 Neut % (Auto) 74.2 % (42.0-75.0) 09/02/19 05:15 Lymph % (Auto) 11.7 % (21.0-51.0) L 09/02/19 05:15 [place] % (Auto) 12.4 % (0.0-13.0) 09/02/19 05:15 Eos % (Auto) 1.0 % (0.9-2.9) 09/02/19 05:15 Baso % (Auto) 0.7 % (0.2-1.0) 09/02/19 05:15 Neut # (Auto) 3.9 x10^3/uL (2.2-4.8) 09/02/19 05:15 Lymph # (Auto) 0.6 X10^3/uL (1.3-2.9) L 09/02/19 05:15 [place] # (Auto) 0.7 x10^3/uL (0.3-0.8) 09/02/19 05:15 Eos # (Auto) 0.1 x10^3/uL (0.0-0.2) 09/02/19 05:15 Baso # (Auto) 0.0 X10^3/uL (0.0-0.1) 09/02/19 05:15 Absolute Nucleated RBC 0.0 /100WBC 09/02/19 05:15 Plt Morphology Comment Normal (NORMAL) 09/02/19 05:15 RBC Morphology Abnormal (NORMAL) 09/02/19 05:15 Hypochromasia 1+ A 09/02/19 05:15 Sample Site Rr 09/01/19 06:38 ABG pH 7.430 (7.35-7.45) 09/01/19 06:38 ABG pCO2 49.0 mmHg (35.0-45.0) H 09/01/19 06:38 ABG pO2 76.0 mmHg (80.0-100.0) L 09/01/19 06:38 ABG HCO3 32.5 mmol/L (22-26) H* 09/01/19 06:38 ABG O2 Saturation 95.0 % (90-100) 09/01/19 06:38 ABG Base Excess 7.0 mmol/L (-2.0-2.0) H 09/01/19 06:38 Mitch Test P 09/01/19 06:38 A-a Gradient 62.0 mmHg 09/01/19 06:38 FiO2 28.0 09/01/19 06:38 Blood Gas Comments Maria Antonia well 09/01/19 06:38 Sodium 141 mmol/L (136-145) 09/02/19 05:15 Corrected Sodium TNP 09/02/19 05:15 Potassium 3.8 mmol/L (3.5-5.1) 09/02/19 05:15 Chloride 105 mmol/L (98-107) 09/02/19 05:15 Carbon Dioxide 28.8 mmol/L (21-32) 09/02/19 05:15 BUN 52 mg/dL (7-18) H 09/02/19 05:15 Creatinine 2.81 mg/dL (0.70-1.30) H 09/02/19 05:15 Est GFR (MDRD) Af Amer 28 (>60) L 09/02/19 05:15 Est GFR (MDRD) Non-Af 23 (>60) L 09/02/19 05:15 Glucose 101 mg/dL (65-99) H 09/02/19 05:15 POC Glucose (mg/dL) 164 mg/dL (65-99) H 09/02/19 16:06 Calcium 8.7 mg/dL (8.5-10.1) 09/02/19 05:15 Corrected Calcium 9.5 mg/dL (8.5-10.1) 09/02/19 05:15 Magnesium 2.7 mg/dL (1.7-2.9) 09/02/19 05:15 Total Bilirubin 0.20 mg/dL (0.2-1.0) 09/02/19 05:15 AST 17 Units/L (15-37) 09/02/19 05:15 ALT 24 Units/L (12-78) 09/02/19 05:15 Alkaline Phosphatase 46 Units/L (46-116) 09/02/19 05:15 Creatine Kinase 87 Units/L (39-308) 09/01/19 15:57 CK-MB (CK-2) 1.2 ng/mL (0-4.0) 09/01/19 15:57 CK/CKMB % Calc 1.4 % (<4) 09/01/19 15:57 Troponin I 0.03 ng/mL (0-1.5) 09/01/19 15:57 B-Natriuretic Peptide 1270 pg/mL (0-79) H* 09/01/19 02:43 Total Protein 6.0 g/dL (6.4-8.2) L 09/02/19 05:15 Albumin 3.0 g/dL (3.4-5.0) L 09/02/19 05:15 Globulin 3.0 g/dL (2.5-4.5) 09/02/19 05:15 Albumin/Globulin Ratio 1.0 Ratio (1.1-2.1) L 09/02/19 05:15 Specimen Type Clean catch urine 09/01/19 06:31 Urine Color Yellow (YELLOW) 09/01/19 06:31 Urine Appearance Clear (CLEAR) 09/01/19 06:31 Urine pH 6.0 (5.0 - 8.0) 09/01/19 06:31 Ur Specific [place] 1.005 (1.000-1.030) 09/01/19 06:31 Urine Protein 3+ (NEGATIVE) 09/01/19 06:31 Urine Glucose (UA) Negative (NEGATIVE) 09/01/19 06:31 Urine Ketones Negative (NEGATIVE) 09/01/19 06:31 Urine Occult Blood Negative (NEGATIVE) 09/01/19 06:31 Urine Nitrite Negative (NEGATIVE) 09/01/19 06:31 Urine Bilirubin Negative (NEGATIVE) 09/01/19 06:31 Urine Urobilinogen Normal (NORMAL) 09/01/19 06:31 Ur Leukocyte Esterase Negative (NEGATIVE) 09/01/19 06:31 Urine RBC None seen /HPF (0-3) 09/01/19 06:31 Urine WBC None seen /HPF (0-5) 09/01/19 06:31 Ur Squamous Epith Cells Negative /HPF (NEGATIVE) 09/01/19 06:31 Urine Bacteria Negative /HPF (NEGATIVE) 09/01/19 06:31 Urine Mucus Few /HPF (NEGATIVE) 09/01/19 06:31 Ur Culture Indicated? No/not indicated 09/01/19 06:31 - Plan (1) Acute exacerbation of CHF (congestive heart failure) Status: Acute Plan: CARDIAC MONITORING. RESP THERAPY, SUPPLEMENTAL O2. CONTINUE HOME MEDICATION, BP CONTROL RESP THERAPY. CONSULT CASE MANAGEMENT FOR NH PLACEMENT OPTIONS DUE TO AFTT AND WEAKNESS. (2) COPD (chronic obstructive pulmonary disease) with acute bronchitis Status: Chronic (3) Acute on chronic renal failure Status: Acute (4) Diabetes type 2, controlled Status: Acute (5) Accelerated hypertension Status: Chronic (6) BPH (benign prostatic hyperplasia) Status: Chronic (7) Adult failure to thrive Status: Acute (8) Anemia Status: Acute Plan: FE REPLACEMENT, AM CBC. OCCULT STOOL
[2019-09-02] MEDS ORDERED: LEXAPRO ONE (18:13)
[2019-09-02] MEDS: LEXAPRO PO SCH (18:16)
[2019-09-02] MEDS: SNACK - Diabetic Appropriate PO SCH (20:15)
[2019-09-02] MEDS: LIPITOR TAB 40 MG PO SCH (21:12)
[2019-09-02] MEDS: PROSCAR PO SCH (21:13)
[2019-09-02] MEDS: INSULIN DEGLUDEC 6 UNIT SUBCUT SCH (21:14)
[2019-09-03 05:31] LABS: BASOPHILS # (AUTO) 0.1 X10^3/uL (0.0-0.1); BASOPHILS % (AUTO) 0.9 % (0.2-1.0); EOSINOPHILS # (AUTO) 0.2 x10^3/uL (0.0-0.2); EOSINOPHILS % (AUTO) 4.1 % (0.9-2.9); HEMATOCRIT 22.2 % (42.0-54.0); HEMOGLOBIN 7.6 g/dL (13.5-18.0); LYMPHOCYTES # (AUTO) 0.6 X10^3/uL (1.3-2.9); LYMPHOCYTES % (AUTO) 9.5 % (21.0-51.0); MEAN CORPUSCULAR HEMOGLOBIN 31.5 pg (27.0-34.0); MEAN CORPUSCULAR HGB CONC 34.1 g/dL (33.0-35.0); MEAN CORPUSCULAR VOLUME 92.6 fL (80.0-100.0); MEAN PLATELET VOLUME 8.8 fL (7.4-11.0); MONOCYTES # (AUTO) 0.5 x10^3/uL (0.3-0.8); NEUTROPHILS # (AUTO) 4.5 x10^3/uL (2.2-4.8); NEUTROPHILS % (AUTO) 76.5 % (42.0-75.0); PLATELET COUNT 150 X10^3/uL (150.0-450.0); WHITE BLOOD COUNT 5.9 X10^3/uL (3.6-10.0)
[2019-09-03 05:33] LABS: ALBUMIN 3.2 g/dL (3.4-5.0); CALCIUM 8.7 mg/dL (8.5-10.1); CARBON DIOXIDE 30.5 mmol/L (21-32); COR CA(FOR HYPOALB) 9.3 mg/dL (8.5-10.1); CREATININE 2.64 mg/dL (0.70-1.30); MAGNESIUM 2.4 mg/dL (1.7-2.9); TOTAL PROTEIN 6.2 g/dL (6.4-8.2)
[2019-09-03] MEDS: APRESOLINE TAB 25 MG PO SCH ×3 (05:37→21:27)
[2019-09-03 06:06] LABS: PLATELET MORPHOLOGY COMMENT NORMAL (NORMAL)
[2019-09-03 06:07] LABS: HYPOCHROMASIA 1+
[2019-09-03] MEDS ORDERED: LEXAPRO ONE (08:01)
[2019-09-03] MEDS: MICRO K EXTEN CAP 10 MEQ PO SCH (08:04)
[2019-09-03] MEDS: ROCEPHIN VIAL 1 GRAM 1 G in NS 100 ML IV + SPIKE MINIBAG* 100 ML IV SCH (08:04)
[2019-09-03] MEDS: PLAVIX PO SCH (08:05)
[2019-09-03] MEDS: COREG TAB 12.5 MG PO SCH ×2 (08:05→20:49)
[2019-09-03] MEDS: PROCARDIA XL PO SCH ×2 (08:05)
[2019-09-03] MEDS: PROTONIX TAB 40 MG PO SCH (08:06)
[2019-09-03] MEDS: HEMOCYTE-PLUS PO SCH (08:06)
[2019-09-03] MEDS: PEPCID TAB 20 MG PO SCH (08:06)
[2019-09-03] MEDS: ASPIRIN EC 81 MG PO SCH (08:06)
[2019-09-03] MEDS: LASIX PO SCH (08:06)
[2019-09-03] MEDS: LEXAPRO PO SCH (08:06)
[2019-09-03] MEDS: PULMICORT NEB TX 0.5 MG NEB SCH ×2 (09:31→20:33)
--- NOTE | 2019-09-03 14:21 | RAD ---
HISTORYCHF, COPD, SOBSTUDYCHEST, 1 VIEWCOMPARISONChest film September 01, 2019.FINDINGSThe trachea is midline. The cardiac silhouette is enlarged but unchanged from the recent film September 01, 2019. The vascular congestion present bilaterally on September 01 has improved as has the interstitial edema. There are now small bibasilar effusions.. Postsurgical changes from sternotomy and CABG surgery are noted. the bony thorax is unremarkable.IMPRESSIONPersistent cardiomegaly but vascular congestion and interstitial edema has improved since the film of September 01, 2019 residual pleural effusion the right lung base is most consistent with resolving CHF.Electronically signed by: ARTIE RODRIGUEZ (Sep 03, 2019 14:20:23)
[2019-09-03] MEDS: SNACK - Diabetic Appropriate PO SCH (20:49)
[2019-09-03] MEDS: INSULIN DEGLUDEC 6 UNIT SUBCUT SCH (20:50)
[2019-09-03] MEDS: PROSCAR PO SCH (20:50)
[2019-09-03] MEDS: LIPITOR TAB 40 MG PO SCH (20:50)
[2019-09-04] MEDS: APRESOLINE TAB 25 MG PO SCH ×3 (05:33→21:03)
[2019-09-04 05:44] LABS: BASOPHILS # (AUTO) 0.1 X10^3/uL (0.0-0.1); BASOPHILS % (AUTO) 0.9 % (0.2-1.0); EOSINOPHILS # (AUTO) 0.2 x10^3/uL (0.0-0.2); EOSINOPHILS % (AUTO) 4.1 % (0.9-2.9); HEMATOCRIT 21.4 % (42.0-54.0); HEMOGLOBIN 7.3 g/dL (13.5-18.0); LYMPHOCYTES # (AUTO) 0.6 X10^3/uL (1.3-2.9); LYMPHOCYTES % (AUTO) 10.8 % (21.0-51.0); MEAN CORPUSCULAR HEMOGLOBIN 31.3 pg (27.0-34.0); MEAN CORPUSCULAR VOLUME 92.1 fL (80.0-100.0); MEAN PLATELET VOLUME 8.3 fL (7.4-11.0); MONOCYTES # (AUTO) 0.5 x10^3/uL (0.3-0.8); MONOCYTES % (AUTO) 8.8 % (0.0-13.0); NEUTROPHILS # (AUTO) 4.1 x10^3/uL (2.2-4.8); NEUTROPHILS % (AUTO) 75.4 % (42.0-75.0); PLATELET COUNT 152 X10^3/uL (150.0-450.0); RED BLOOD COUNT 2.33 X10^6/uL (4.7-6.0); RED CELL DISTRIBUTION WIDTH 15.1 % (11.6-16.5); WHITE BLOOD COUNT 5.4 X10^3/uL (3.6-10.0)
[2019-09-04 05:52] LABS: ALANINE AMINOTRANSFERASE 34 Units/L (12-78); ALKALINE PHOSPHATASE 47 Units/L (46-116); ASPARTATE AMINO TRANSFERASE 19 Units/L (15-37); BLOOD UREA NITROGEN 49 mg/dL (7-18); CALCIUM 8.4 mg/dL (8.5-10.1); CARBON DIOXIDE 29.7 mmol/L (21-32); CHLORIDE 107 mmol/L (98-107); COR CA(FOR HYPOALB) 9.2 mg/dL (8.5-10.1); CREATININE 2.59 mg/dL (0.70-1.30); SODIUM 144 mmol/L (136-145); TOTAL PROTEIN 5.9 g/dL (6.4-8.2); eGFR NON BLACK RACES 25 (>60)
[2019-09-04 06:07] LABS: HYPOCHROMASIA 1+; PLATELET MORPHOLOGY COMMENT NORMAL (NORMAL)
[2019-09-04] MEDS: PULMICORT NEB TX 0.5 MG NEB SCH ×2 (09:00→20:29)
[2019-09-04] MEDS ORDERED: LEXAPRO ONE (09:06)
[2019-09-04] MEDS: PEPCID TAB 20 MG PO SCH (09:53)
[2019-09-04] MEDS: PROCARDIA XL PO SCH ×2 (09:53)
[2019-09-04] MEDS: ASPIRIN EC 81 MG PO SCH (09:53)
[2019-09-04] MEDS: MICRO K EXTEN CAP 10 MEQ PO SCH (09:53)
[2019-09-04] MEDS: LEXAPRO PO SCH (09:53)
[2019-09-04] MEDS: PROTONIX TAB 40 MG PO SCH (09:53)
[2019-09-04] MEDS: PLAVIX PO SCH (09:54)
[2019-09-04] MEDS: LASIX PO SCH (09:54)
[2019-09-04] MEDS: HEMOCYTE-PLUS PO SCH (09:54)
[2019-09-04] MEDS: COREG TAB 12.5 MG PO SCH ×2 (09:54→20:21)
[2019-09-04] MEDS: ROCEPHIN VIAL 1 GRAM 1 G in NS 100 ML IV + SPIKE MINIBAG* 100 ML IV SCH (09:54)
[2019-09-04] MEDS: APRESOLINE INJ 20 MG VIAL IVP PRN (10:00)
[2019-09-04] MEDS: CATAPRES-TTS-2 TD SCH (10:41)
[2019-09-04] MEDS: LIPITOR TAB 40 MG PO SCH (20:21)
[2019-09-04] MEDS: SNACK - Diabetic Appropriate PO SCH (20:21)
[2019-09-04] MEDS: PROSCAR PO SCH (20:21)
[2019-09-04] MEDS: INSULIN DEGLUDEC 6 UNIT SUBCUT SCH (20:23)
[2019-09-05] MEDS: APRESOLINE TAB 25 MG PO SCH ×3 (05:37→21:09)
[2019-09-05 05:53] LABS: BASOPHILS % (AUTO) 0.8 % (0.2-1.0); EOSINOPHILS # (AUTO) 0.2 x10^3/uL (0.0-0.2); HEMATOCRIT 21.7 % (42.0-54.0); HEMOGLOBIN 7.2 g/dL (13.5-18.0); LYMPHOCYTES # (AUTO) 0.5 X10^3/uL (1.3-2.9); LYMPHOCYTES % (AUTO) 8.7 % (21.0-51.0); MEAN CORPUSCULAR HEMOGLOBIN 30.9 pg (27.0-34.0); MEAN CORPUSCULAR HGB CONC 33.3 g/dL (33.0-35.0); MEAN CORPUSCULAR VOLUME 92.9 fL (80.0-100.0); MEAN PLATELET VOLUME 8.4 fL (7.4-11.0); MONOCYTES # (AUTO) 0.5 x10^3/uL (0.3-0.8); MONOCYTES % (AUTO) 8.2 % (0.0-13.0); NEUTROPHILS # (AUTO) 4.4 x10^3/uL (2.2-4.8); NEUTROPHILS % (AUTO) 79.3 % (42.0-75.0); PLATELET COUNT 158 X10^3/uL (150.0-450.0); RED BLOOD COUNT 2.34 X10^6/uL (4.7-6.0); RED CELL DISTRIBUTION WIDTH 15.5 % (11.6-16.5); WHITE BLOOD COUNT 5.5 X10^3/uL (3.6-10.0)
[2019-09-05 05:56] LABS: ALBUMIN 2.9 g/dL (3.4-5.0); CALCIUM 8.3 mg/dL (8.5-10.1); CARBON DIOXIDE 29.9 mmol/L (21-32); COR CA(FOR HYPOALB) 9.2 mg/dL (8.5-10.1); CREATININE 2.49 mg/dL (0.70-1.30)
[2019-09-05 06:16] LABS: PLATELET MORPHOLOGY COMMENT NORMAL (NORMAL)
[2019-09-05 06:17] LABS: HYPOCHROMASIA SLIGHT
[2019-09-05] MEDS ORDERED: LEXAPRO ONE (08:38)
[2019-09-05] MEDS: APRESOLINE INJ 20 MG VIAL IVP PRN (08:48)
[2019-09-05] MEDS: ROCEPHIN VIAL 1 GRAM 1 G in NS 100 ML IV + SPIKE MINIBAG* 100 ML IV SCH (08:51)
[2019-09-05] MEDS: PULMICORT NEB TX 0.5 MG NEB SCH ×2 (08:53→21:42)
[2019-09-05] MEDS: PROCARDIA XL PO SCH ×2 (08:54)
[2019-09-05] MEDS: HEMOCYTE-PLUS PO SCH (08:54)
[2019-09-05] MEDS: PROTONIX TAB 40 MG PO SCH (08:54)
[2019-09-05] MEDS: ASPIRIN EC 81 MG PO SCH (08:54)
[2019-09-05] MEDS: LASIX PO SCH (08:54)
[2019-09-05] MEDS: MICRO K EXTEN CAP 10 MEQ PO SCH (08:54)
[2019-09-05] MEDS: COREG TAB 12.5 MG PO SCH ×2 (08:54→20:21)
[2019-09-05] MEDS: PEPCID TAB 20 MG PO SCH (08:54)
[2019-09-05] MEDS: PLAVIX PO SCH (08:55)
[2019-09-05] MEDS: LEXAPRO PO SCH (08:55)
[2019-09-05] MEDS ORDERED: LASIX IVP ONE (13:07)
--- NOTE | 2019-09-05 13:11 | PCM.PROG ---
Progress Note - Progress Note for Day of Date of Exam: 09/05/19 - Subjective Subjective: The patient is a pleasant 84-year-old black male who is a patient of our private practice who was admitted through the emergency room with shortness of breath due to congestive heart failure and chronic obstructive pulmonary disease exacerbation. Since admission, the patient has been on respiratory therapy, supplemental oxygen, and IV antibiotics along with pulmonary toileting. We resumed the patients home medications for management of his chronic conditions including coronary artery disease, congestive heart failure, and benign prostatic hypertrophy. The patient has a history of chronic renal failure. He has been on gentle IV hydration with creatinine down to 2.49 today. The patients hemoglobin is at 7.2 and he has a history of chronic disease along with iron deficiency anemia and he is on oral Iron replacement. Due to his continued generalized weakness and WILLIS we will transfuse 1 unit PRBC followed by IV lasix with repat am CXR. We will continue to monitor. The patient denies any chest pain this morning. He is calm and cooperative. He had been having significant anxiety. We started him on a low dose of Lexapro and he seems to be tolerated this well. His family is asking for some rehabilitation placement and we are currently awaiting on retirement placement at [facility] when a bed is available. - Past Medical Family Social History Past Med/Fam/Surg Hx: No changes since H&P Allergies: Allergies Iodinated Contrast Media Allergy (Verified 09/01/19 09:44) ketorolac [From Toradol] Allergy (Verified 09/01/19 09:44) lisinopril Allergy (Verified 09/01/19 09:44) - Review of Systems ROS: No change since H&P - Vital Signs and I&O's Vital Signs: Temperature 97.8 F Pulse Rate [Left Brachial] 64 Pulse Rate [Right Radial] 65 Pulse Rate 67 Respiratory Rate 20 Blood Pressure [Right Arm] 193/82 Blood Pressure [Left Arm] 198/90 Blood Pressure 183/81 O2 Sat by Pulse Oximetry 98 Intake and Output: Intake & Output 09/03/19 09/04/19 09/05/19 09/06/19 11:59 11:59 11:59 11:59 Intake Total 940 / 940 820 / 820 1650 / 1650 Output Total 1600 / 1600 900 / 900 400 / 400 Balance -660 / -660 -80 / -80 1250 / 1250 - Physical Exam Oriented: Person Eyes: Normal Ear: Normal Nose: Normal Throat: Normal Respiratory: Diminished, Wheezes. negative: Rales Cardiovascular: Normal, Murmur, Edema : Normal Auscultation: Bowel Sounds: Normal Tenderness: Normal Skin: Normal Musculoskeletal: Right, Left, Knee, Back:Thoracic, Back:Lumbar Psychiatric: Anxiety Affect: Anxious Speech Pattern: Clear, Appropriate - Laboratory and Diagnostics Result Diagrams: 09/05/19 04:29 09/05/19 04:29 Labs: 09/01/19 04:30 Blood Blood Culture - Preliminary 09/01/19 02:43 Blood Blood Culture - Preliminary Laboratory WBC 5.5 X10^3/uL (3.6-10.0) 09/05/19 04:29 RBC 2.34 X10^6/uL (4.7-6.0) L 09/05/19 04:29 Hgb 7.2 g/dL (13.5-18.0) L 09/05/19 04:29 Hct 21.7 % (42.0-54.0) L 09/05/19 04:29 MCV 92.9 fL (80.0-100.0) 09/05/19 04:29 MCH 30.9 pg (27.0-34.0) 09/05/19 04:29 MCHC 33.3 g/dL (33.0-35.0) 09/05/19 04:29 RDW 15.5 % (11.6-16.5) 09/05/19 04:29 Plt Count 158 X10^3/uL (150.0-450.0) 09/05/19 04:29 Plt Count Comment Adequate (ADEQUATE) 09/05/19 04:29 MPV 8.4 fL (7.4-11.0) 09/05/19 04:29 Neut % (Auto) 79.3 % (42.0-75.0) H 09/05/19 04:29 Lymph % (Auto) 8.7 % (21.0-51.0) L 09/05/19 04:29 [place] % (Auto) 8.2 % (0.0-13.0) 09/05/19 04:29 Eos % (Auto) 3.0 % (0.9-2.9) H 09/05/19 04:29 Baso % (Auto) 0.8 % (0.2-1.0) 09/05/19 04:29 Neut # (Auto) 4.4 x10^3/uL (2.2-4.8) 09/05/19 04:29 Lymph # (Auto) 0.5 X10^3/uL (1.3-2.9) L 09/05/19 04:29 [place] # (Auto) 0.5 x10^3/uL (0.3-0.8) 09/05/19 04: Eos # (Auto) 0.2 x10^3/uL (0.0-0.2) 09/05/19 04: Baso # (Auto) 0.0 X10^3/uL (0.0-0.1) 09/05/19 04:29 Absolute Nucleated RBC 0.0 /100WBC 09/05/19 04:29 Plt Morphology Comment Normal (NORMAL) 09/05/19 04:29 RBC Morphology Abnormal (NORMAL) 09/05/19 04:29 Hypochromasia Slight A 09/05/19 04:29 Sample Site Rr 09/01/19 06:38 ABG pH 7.430 (7.35-7.45) 09/01/19 06:38 ABG pCO2 49.0 mmHg (35.0-45.0) H 09/01/19 06:38 ABG pO2 76.0 mmHg (80.0-100.0) L 09/01/19 06:38 ABG HCO3 32.5 mmol/L (22-26) H* 09/01/19 06:38 ABG O2 Saturation 95.0 % (90-100) 09/01/19 06:38 ABG Base Excess 7.0 mmol/L (-2.0-2.0) H 09/01/19 06:38 Mitch Test P 09/01/19 06:38 A-a Gradient 62.0 mmHg 09/01/19 06:38 FiO2 28.0 09/01/19 06:38 Blood Gas Comments Maria Antonia well 09/01/19 06:38 Sodium 145 mmol/L (136-145) 09/05/19 04:29 Corrected Sodium 145 mmol/L (136-145) 09/05/19 04:29 Potassium 3.6 mmol/L (3.5-5.1) 09/05/19 04:29 Chloride 108 mmol/L (98-107) H 09/05/19 04:29 Carbon Dioxide 29.9 mmol/L (21-32) 09/05/19 04:29 BUN 45 mg/dL (7-18) H 09/05/19 04:29 Creatinine 2.49 mg/dL (0.70-1.30) H 09/05/19 04:29 Est GFR (MDRD) Af Amer 32 (>60) L 09/05/19 04:29 Est GFR (MDRD) Non-Af 26 (>60) L 09/05/19 04:29 Glucose 119 mg/dL (65-99) H 09/05/19 04:29 POC Glucose (mg/dL) 126 mg/dL (65-99) H 09/05/19 11:48 Calcium 8.3 mg/dL (8.5-10.1) L 09/05/19 04:29 Corrected Calcium 9.2 mg/dL (8.5-10.1) 09/05/19 04:29 Magnesium 2.4 mg/dL (1.7-2.9) 09/03/19 04:36 Total Bilirubin 0.20 mg/dL (0.2-1.0) 09/05/19 04:29 AST 18 Units/L (15-37) 09/05/19 04:29 ALT 32 Units/L (12-78) 09/05/19 04:29 Alkaline Phosphatase 47 Units/L (46-116) 09/05/19 04:29 Creatine Kinase 87 Units/L (39-308) 09/01/19 15:57 CK-MB (CK-2) 1.2 ng/mL (0-4.0) 09/01/19 15:57 CK/CKMB % Calc 1.4 % (<4) 09/01/19 15:57 Troponin I 0.03 ng/mL (0-1.5) 09/01/19 15:57 B-Natriuretic Peptide 1270 pg/mL (0-79) H* 09/01/19 02:43 Total Protein 6.0 g/dL (6.4-8.2) L 09/05/19 04:29 Albumin 2.9 g/dL (3.4-5.0) L 09/05/19 04:29 Globulin 3.1 g/dL (2.5-4.5) 09/05/19 04:29 Albumin/Globulin Ratio 0.9 Ratio (1.1-2.1) L 09/05/19 04:29 Specimen Type Clean catch urine 09/01/19 06:31 Urine Color Yellow (YELLOW) 09/01/19 06:31 Urine Appearance Clear (CLEAR) 09/01/19 06:31 Urine pH 6.0 (5.0 - 8.0) 09/01/19 06:31 Ur Specific [place] 1.005 (1.000-1.030) 09/01/19 06:31 Urine Protein 3+ (NEGATIVE) 09/01/19 06:31 Urine Glucose (UA) Negative (NEGATIVE) 09/01/19 06:31 Urine Ketones Negative (NEGATIVE) 09/01/19 06:31 Urine Occult Blood Negative (NEGATIVE) 09/01/19 06:31 Urine Nitrite Negative (NEGATIVE) 09/01/19 06:31 Urine Bilirubin Negative (NEGATIVE) 09/01/19 06:31 Urine Urobilinogen Normal (NORMAL) 09/01/19 06:31 Ur Leukocyte Esterase Negative (NEGATIVE) 09/01/19 06:31 Urine RBC None seen /HPF (0-3) 09/01/19 06:31 Urine WBC None seen /HPF (0-5) 09/01/19 06:31 Ur Squamous Epith Cells Negative /HPF (NEGATIVE) 09/01/19 06:31 Urine Bacteria Negative /HPF (NEGATIVE) 09/01/19 06:31 Urine Mucus Few /HPF (NEGATIVE) 09/01/19 06:31 Ur Culture Indicated? No/not indicated 09/01/19 06:31 - Plan (1) Acute exacerbation of CHF (congestive heart failure) Status: Acute Plan: CARDIAC MONITORING. RESP THERAPY, SUPPLEMENTAL O2. CONTINUE HOME MEDICATION, BP CONTROL RESP THERAPY. CONSULT CASE MANAGEMENT FOR NH PLACEMENT OPTIONS DUE TO AFTT AND WEAKNESS. (2) COPD (chronic obstructive pulmonary disease) with acute bronchitis Status: Chronic (3) Acute on chronic renal failure Status: Acute (4) Diabetes type 2, controlled Status: Acute (5) Accelerated hypertension Status: Chronic (6) BPH (benign prostatic hyperplasia) Status: Chronic (7) Adult failure to thrive Status: Acute (8) Anemia Status: Acute Plan: FE REPLACEMENT, AM CBC. TRANFUSE 1 UNIT PRBC 09/05/2019. OCCULT STOOL
[2019-09-05] MEDS ORDERED: NS 250 ML IV 250 ML IV ONE (16:56)
[2019-09-05] MEDS: SNACK - Diabetic Appropriate PO SCH (20:19)
[2019-09-05] MEDS: LIPITOR TAB 40 MG PO SCH (20:20)
[2019-09-05] MEDS: PROSCAR PO SCH (20:20)
[2019-09-05] MEDS: INSULIN DEGLUDEC 6 UNIT SUBCUT SCH (20:24)
[2019-09-05] MEDS ORDERED: NS 500 ML IV 500 ML IV ONE (21:44)
[2019-09-06 04:08] LABS: BASOPHILS # (AUTO) 0.1 X10^3/uL (0.0-0.1); BASOPHILS % (AUTO) 0.9 % (0.2-1.0); EOSINOPHILS # (AUTO) 0.2 x10^3/uL (0.0-0.2); EOSINOPHILS % (AUTO) 3.8 % (0.9-2.9); HEMATOCRIT 24.3 % (42.0-54.0); HEMOGLOBIN 8.2 g/dL (13.5-18.0); LYMPHOCYTES # (AUTO) 0.5 X10^3/uL (1.3-2.9); MEAN CORPUSCULAR HEMOGLOBIN 31.1 pg (27.0-34.0); MEAN CORPUSCULAR HGB CONC 33.7 g/dL (33.0-35.0); MEAN CORPUSCULAR VOLUME 92.3 fL (80.0-100.0); MEAN PLATELET VOLUME 7.9 fL (7.4-11.0); MONOCYTES # (AUTO) 0.5 x10^3/uL (0.3-0.8); MONOCYTES % (AUTO) 8.1 % (0.0-13.0); NEUTROPHILS # (AUTO) 4.5 x10^3/uL (2.2-4.8); NEUTROPHILS % (AUTO) 79.2 % (42.0-75.0); PLATELET COUNT 159 X10^3/uL (150.0-450.0); RED BLOOD COUNT 2.64 X10^6/uL (4.7-6.0); RED CELL DISTRIBUTION WIDTH 15.1 % (11.6-16.5); WHITE BLOOD COUNT 5.7 X10^3/uL (3.6-10.0)
[2019-09-06 04:15] LABS: ALANINE AMINOTRANSFERASE 33 Units/L (12-78); ALBUMIN 3.1 g/dL (3.4-5.0); ALKALINE PHOSPHATASE 51 Units/L (46-116); ASPARTATE AMINO TRANSFERASE 18 Units/L (15-37); BLOOD UREA NITROGEN 41 mg/dL (7-18); CALCIUM 8.7 mg/dL (8.5-10.1); CARBON DIOXIDE 29.9 mmol/L (21-32); CHLORIDE 106 mmol/L (98-107); COR CA(FOR HYPOALB) 9.4 mg/dL (8.5-10.1); CREATININE 2.48 mg/dL (0.70-1.30); SODIUM 144 mmol/L (136-145); eGFR NON BLACK RACES 27 (>60)
--- NOTE | 2019-09-06 06:13 | RAD ---
HISTORYShortness of breathSTUDYCHEST, 1 [id number] is status post median sternotomy and CABG. The heart is enlarged. No congestive heart failure is noted on today's examination. There is now a right upper lobe infiltrate present suggestive of pneumonia. The remainder of the lung [place]ley are clear. No pleural effusions are identified.IMPRESSIONCardiomegaly without congestive heart failure on today's examinationNew right upper lobe infiltrateElectronically signed by: JENNIFER GANNON (Sep 06, 2019 06:11:52)
[2019-09-06] MEDS: APRESOLINE TAB 25 MG PO SCH ×4 (06:14→20:59)
[2019-09-06] MEDS: PULMICORT NEB TX 0.5 MG NEB SCH ×2 (08:51→21:00)
[2019-09-06] MEDS ORDERED: LEXAPRO ONE (08:55)
[2019-09-06] MEDS: PEPCID TAB 20 MG PO SCH (09:16)
[2019-09-06] MEDS: LASIX PO SCH (09:16)
[2019-09-06] MEDS: PROCARDIA XL PO SCH ×2 (09:16→09:17)
[2019-09-06] MEDS: MICRO K EXTEN CAP 10 MEQ PO SCH (09:16)
[2019-09-06] MEDS: HEMOCYTE-PLUS PO SCH (09:16)
[2019-09-06] MEDS: COREG TAB 12.5 MG PO SCH ×2 (09:16→20:59)
[2019-09-06] MEDS: PROTONIX TAB 40 MG PO SCH (09:17)
[2019-09-06] MEDS: ASPIRIN EC 81 MG PO SCH (09:17)
[2019-09-06] MEDS: LEXAPRO PO SCH (09:17)
[2019-09-06] MEDS: PLAVIX PO SCH (09:23)
[2019-09-06] MEDS: ROCEPHIN VIAL 1 GRAM 1 G in NS 100 ML IV + SPIKE MINIBAG* 100 ML IV SCH (09:37)
[2019-09-06] MEDS ORDERED: LEVAQUIN PREMIX IV 750 MG 750 MG/150 ML BAG IV SCH (11:00)
[2019-09-06] MEDS: XOPENEX 1.25 MG/3 ML NEBULE NEB SCH ×2 (11:59→17:33)
[2019-09-06] MEDS: APRESOLINE INJ 20 MG VIAL IVP PRN (12:13)
[2019-09-06] MEDS: LIPITOR TAB 40 MG PO SCH (20:59)
[2019-09-06] MEDS: PROSCAR PO SCH (21:00)
[2019-09-06] MEDS: INSULIN DEGLUDEC 6 UNIT SUBCUT SCH (21:31)
[2019-09-06] MEDS: SNACK - Diabetic Appropriate PO SCH (21:32)
[2019-09-07] MEDS: XOPENEX 1.25 MG/3 ML NEBULE NEB SCH ×3 (00:56→11:56)
[2019-09-07] MEDS: APRESOLINE TAB 25 MG PO SCH (05:37)
[2019-09-07 05:42] LABS: BASOPHILS % (AUTO) 0.6 % (0.2-1.0); EOSINOPHILS # (AUTO) 0.2 x10^3/uL (0.0-0.2); EOSINOPHILS % (AUTO) 2.2 % (0.9-2.9); HEMATOCRIT 23.9 % (42.0-54.0); HEMOGLOBIN 8.1 g/dL (13.5-18.0); LYMPHOCYTES # (AUTO) 0.5 X10^3/uL (1.3-2.9); LYMPHOCYTES % (AUTO) 6.3 % (21.0-51.0); MEAN CORPUSCULAR HEMOGLOBIN 31.3 pg (27.0-34.0); MEAN CORPUSCULAR HGB CONC 33.9 g/dL (33.0-35.0); MEAN CORPUSCULAR VOLUME 92.6 fL (80.0-100.0); MEAN PLATELET VOLUME 8.4 fL (7.4-11.0); MONOCYTES # (AUTO) 0.7 x10^3/uL (0.3-0.8); MONOCYTES % (AUTO) 9.1 % (0.0-13.0); NEUTROPHILS # (AUTO) 5.9 x10^3/uL (2.2-4.8); NEUTROPHILS % (AUTO) 81.8 % (42.0-75.0); PLATELET COUNT 153 X10^3/uL (150.0-450.0); RED BLOOD COUNT 2.58 X10^6/uL (4.7-6.0); RED CELL DISTRIBUTION WIDTH 15.2 % (11.6-16.5); WHITE BLOOD COUNT 7.2 X10^3/uL (3.6-10.0)
[2019-09-07 05:57] LABS: ALBUMIN 2.9 g/dL (3.4-5.0); CALCIUM 8.7 mg/dL (8.5-10.1); CARBON DIOXIDE 29.1 mmol/L (21-32); COR CA(FOR HYPOALB) 9.6 mg/dL (8.5-10.1); CREATININE 2.57 mg/dL (0.70-1.30)
[2019-09-07] MEDS ORDERED: POTASSIUM CHL 60 MEQ/NS 0.45% 500 ML IV PRN (06:30)
[2019-09-07] MEDS ORDERED: K-RIDER 10 MEQ/NS 100 ML 10 MEQ/100 ML BAG IV PRN (06:30)
[2019-09-07] MEDS ORDERED: KLOR-CON PO PRN (06:30)
[2019-09-07] MEDS ORDERED: POTASSIUM CHL 40 MEQ/NS 0.45% 500 ML IV PRN (06:30)
[2019-09-07] MEDS ORDERED: MICRO K EXTEN CAP 10 MEQ PO PRN (06:30)
[2019-09-07] MEDS ORDERED: K-DUR TAB 20 MEQ PO PRN (06:30)
[2019-09-07] MEDS ORDERED: POTASSIUM CHLORIDE LIQ 20 MEQ UDC PO PRN (06:30)
[2019-09-07] MEDS ORDERED: MAGNESIUM SULFATE 1 GRAM/100 mL PREMIX 1 GM/100 ML BAG IV PRN (06:30)
[2019-09-07] MEDS ORDERED: LEXAPRO ONE (08:16)
[2019-09-07] MEDS ORDERED: LEVAQUIN TAB 250 MG PO SCH (09:00)
[2019-09-07] MEDS ORDERED: DULCOLAX SUPPOSITORY 10 MG RECTAL ONE (09:10)
[2019-09-07] MEDS: MICRO K EXTEN CAP 10 MEQ PO SCH (09:51)
[2019-09-07] MEDS: LEXAPRO PO SCH (09:51)
[2019-09-07] MEDS: ASPIRIN EC 81 MG PO SCH (09:51)
[2019-09-07] MEDS: PROCARDIA XL PO SCH ×2 (09:51)
[2019-09-07] MEDS: PROTONIX TAB 40 MG PO SCH (09:51)
[2019-09-07] MEDS: COREG TAB 12.5 MG PO SCH (09:51)
[2019-09-07] MEDS: PLAVIX PO SCH (09:51)
[2019-09-07] MEDS: HEMOCYTE-PLUS PO SCH (09:51)
[2019-09-07] MEDS: ROCEPHIN VIAL 1 GRAM 1 G in NS 100 ML IV + SPIKE MINIBAG* 100 ML IV SCH (09:52)
[2019-09-07] MEDS: LASIX PO SCH (09:52)
[2019-09-07] MEDS: PEPCID TAB 20 MG PO SCH (09:52)
[2019-09-07] MEDS: PULMICORT NEB TX 0.5 MG NEB SCH (10:00)
[2019-09-07] MEDS: HumuLIN R SUBCUT PRN (10:35)
[2019-09-07 12:56] VITALS: BP 168/82
== END 2019-09-07 13:00 | disposition home health service (06) | DRG 291 ==
LOC: ER 02:14 → EDBD 06:44 → MED/SURG 06:44
PROVIDERS: ADMIT Internal Medicine; ATTEND Internal Medicine
DX: N18.9 Chronic kidney disease, unspecified; R06.02 Shortness of breath; R53.1 Weakness; I13.0 Hypertensive heart and chronic kidney disease with heart failure and stage 1 through stage 4 chronic kidney disease, or unspecified chronic kidney disease; N40.0 Benign prostatic hyperplasia without lower urinary tract symptoms; J44.1 Chronic obstructive pulmonary disease with (acute) exacerbation; R62.7 Adult failure to thrive; N17.8 Other acute kidney failure; D50.8 Other iron deficiency anemias; R26.89 Other abnormalities of gait and mobility; I50.43 Acute on chronic combined systolic (congestive) and diastolic (congestive) heart failure; E11.65 Type 2 diabetes mellitus with hyperglycemia; R60.0 Localized edema; R94.31 Abnormal electrocardiogram [ECG] [EKG]; E11.22 Type 2 diabetes mellitus with diabetic chronic kidney disease; N17.9 Acute kidney failure, unspecified
CPT/HCPCS: 36415; 36430; 36600; 71010; 71045; 80053; 81001; 82550; 82553; 82803; 83735; 83880; 84484; 85025; 86850; 86900; 86901; 86922; 87040; 87070; 87205; 93005; 94640; 94760; 96365; 96374; 96375; 97110; 97116; 97162; 97166; 97535; 99284; A4216; A4222; P9016; S0138; J0360; J0696; J1200; J1815; J1940; J1956; J2930; J7040; J7050; J7626

== ENCOUNTER 2019-09-22 10:22 | Observation (INO) ==
[2019-09-22 10:37] VITALS: BMI 25.7
--- NOTE | 2019-09-22 10:41 | DR.SOBA ---
HPI Time Seen Time Seen by Provider: 09/22/19 10:32 PMH PMH Past Medical History: Anxiety, Arthritis, CHF, COPD, Coronary Artery Disease, Diabetes, Hypertension and Renal Disease Past Surgical History: Yes Surgical History: CABG/Valve Surgery Family History Family Medical History: Diabetes Mellitus, Coronary Artery Disease, Heart Failure and Hypertension Social History Do you use any recreational Drugs:: No infectious screening Isolation: Standard ROS Review of Systems Constitutional: No Symptoms Reported and See HPI Eyes: No Symptoms Reported and See HPI ENTM: No Symptoms Reported and See HPI Respiratoy: No Symptoms Reported and See HPI Cardiovascular: No Symptoms Reported and See HPI Gastrointestinal/Abdominal: No Symptoms Reported and See HPI Genitourinary: No Symptoms Reported and See HPI Neurological: No Symptoms Reported and See HPI Musculoskeletal: No Symptoms Reported and See HPI Integumentary: No Symptoms Reported and See HPI Hematologic/Lymphatic: No Symptoms Reported and See HPI Endocrine: No Symptoms Reported and See HPI Psychiatric: No Symptoms Reported and See HPI All Other Systems: Reviewed and Negative PE Vital Signs Vitals: Temperature 99.3 F Pulse Rate 68 Respiratory Rate 24 Blood Pressure [Right Arm] 193/82 Blood Pressure [Left Arm] 168/82 Blood Pressure 133/99 O2 Sat by Pulse Oximetry 98 General Limitations: No Limitations General Appearance: Alert and In No Apparent Distress Head Head Exam: Normal Inspection Eyes Eye exam: Normal Appearance ENT ENT Exam: Normal Exam Neck Neck Exam: Normal Inspection Chest Chest Inspection: Normal Inspection Respiratory Respiratory Exam: Normal Lung Sounds Bilat Respiratory Exam: Bilateral: Clear to Auscultation Cardiovascular Cardiovascular Exam: Regular Rate and Normal Rhythm Abdominal Exam Abdominal Exam: Normal Inspection, Normal Bowel Sounds and Soft Extremities Extremities Exam: Normal Inspection Back Back Exam: Normal Inspection Neurologic Neurological Exam: Alert and Oriented X3 Psychiatric Psychiatric Exam: Normal Affect and Normal Mood Skin Skin Exam: Warm, Dry, Intact and Normal Color ROR Labs Reviewed Result Diagrams: 09/22/19 11:09 09/22/19 11:09 Laboratory: WBC 4.9 X10^3/uL (3.6-10.0) 09/22/19 11:09 RBC 2.35 X10^6/uL (4.7-6.0) L 09/22/19 11:09 Hgb 7.2 g/dL (13.5-18.0) L 09/22/19 11:09 Hct 21.5 % (42.0-54.0) L 09/22/19 11:09 MCV 91.5 fL (80.0-100.0) 09/22/19 11:09 MCH 30.5 pg (27.0-34.0) 09/22/19 11:09 MCHC 33.3 g/dL (33.0-35.0) 09/22/19 11:09 RDW 16.0 % (11.6-16.5) 09/22/19 11:09 Plt Count 175 X10^3/uL (150.0-450.0) 09/22/19 11:09 Plt Count Comment Adequate (ADEQUATE) 09/22/19 11:09 MPV 8.0 fL (7.4-11.0) 09/22/19 11:09 Neut % (Auto) 80.6 % (42.0-75.0) H 09/22/19 11:09 Lymph % (Auto) 8.6 % (21.0-51.0) L 09/22/19 11:09 [place] % (Auto) 7.7 % (0.0-13.0) 09/22/19 11:09 Eos % (Auto) 2.3 % (0.9-2.9) 09/22/19 11:09 Baso % (Auto) 0.8 % (0.2-1.0) 09/22/19 11:09 Neut # (Auto) 4.0 x10^3/uL (2.2-4.8) 09/22/19 11:09 Lymph # (Auto) 0.4 X10^3/uL (1.3-2.9) L 09/22/19 11:09 [place] # (Auto) 0.4 x10^3/uL (0.3-0.8) 09/22/19 11:09 Eos # (Auto) 0.1 x10^3/uL (0.0-0.2) 09/22/19 11:09 Baso # (Auto) 0.0 X10^3/uL (0.0-0.1) 09/22/19 11:09 Absolute Nucleated RBC 0.0 /100WBC 09/22/19 11:09 Plt Morphology Comment Normal (NORMAL) 09/22/19 11:09 RBC Morphology Abnormal (NORMAL) 09/22/19 11:09 Hypochromasia 1+ A 09/22/19 11:09 Anisocytosis Slight A 09/22/19 11:09 Microcytosis 1+ A 09/22/19 11:09 Sample Site Rr 09/22/19 15:20 ABG pH 7.420 (7.35-7.45) 09/22/19 15:20 ABG pCO2 44.0 mmHg (35.0-45.0) 09/22/19 15:20 ABG pO2 76.0 mmHg (80.0-100.0) L 09/22/19 15:20 ABG HCO3 28.5 mmol/L (22-26) H 09/22/19 15:20 ABG O2 Saturation 95.0 % (90-100) 09/22/19 15:20 ABG Base Excess 3.5 mmol/L (-2.0-2.0) H 09/22/19 15:20 Mitch Test Pos 09/22/19 15:20 A-a Gradient 69.0 mmHg 09/22/19 15:20 FiO2 28.0 09/22/19 15:20 Blood Gas Comments Maria Antonia well cb 09/22/19 15:20 Sodium 140 mmol/L (136-145) 09/22/19 11:09 Corrected Sodium 142 mmol/L (136-145) 09/22/19 11:09 Potassium 4.8 mmol/L (3.5-5.1) 09/22/19 11:09 Chloride 106 mmol/L (98-107) 09/22/19 11:09 Carbon Dioxide 27.4 mmol/L (21-32) 09/22/19 11:09 BUN 54 mg/dL (7-18) H 09/22/19 11:09 Creatinine 3.25 mg/dL (0.70-1.30) H 09/22/19 11:09 Est GFR (MDRD) Af Amer 23 (>60) L 09/22/19 11:09 Est GFR (MDRD) Non-Af 19 (>60) L 09/22/19 11:09 Glucose 186 mg/dL (65-99) H 09/22/19 11:09 Calcium 8.7 mg/dL (8.5-10.1) 09/22/19 11:09 Corrected Calcium 9.3 mg/dL (8.5-10.1) 09/22/19 11:09 Total Bilirubin 0.10 mg/dL (0.2-1.0) L 09/22/19 11:09 AST 31 Units/L (15-37) 09/22/19 11:09 ALT 44 Units/L (12-78) 09/22/19 11:09 Alkaline Phosphatase 65 Units/L (46-116) 09/22/19 11:09 Creatine Kinase 118 Units/L (39-308) 09/22/19 11:09 CK-MB (CK-2) 1.5 ng/mL (0-4.0) 09/22/19 11:09 CK/CKMB % Calc 1.3 % (<4) 09/22/19 11:09 Troponin I 0.21 ng/mL (0-1.5) 09/22/19 11:09 B-Natriuretic Peptide 558 pg/mL (0-79) H* 09/22/19 11:09 Total Protein 6.3 g/dL (6.4-8.2) L 09/22/19 11:09 Albumin 3.2 g/dL (3.4-5.0) L 09/22/19 11:09 Globulin 3.1 g/dL (2.5-4.5) 09/22/19 11:09 Albumin/Globulin Ratio 1.0 Ratio (1.1-2.1) L 09/22/19 11:09 Specimen Type Clean catch urine 09/22/19 14:35 Urine Color Yellow (YELLOW) 09/22/19 14:35 Urine Appearance Clear (CLEAR) 09/22/19 14:35 Urine pH 5.0 (5.0 - 8.0) 09/22/19 14:35 Ur Specific [place] 1.015 (1.000-1.030) 09/22/19 14:35 Urine Protein 2+ (NEGATIVE) 09/22/19 14:35 Urine Glucose (UA) Negative (NEGATIVE) 09/22/19 14:35 Urine Ketones Negative (NEGATIVE) 09/22/19 14:35 Urine Occult Blood Negative (NEGATIVE) 09/22/19 14:35 Urine Nitrite Negative (NEGATIVE) 09/22/19 14:35 Urine Bilirubin Negative (NEGATIVE) 09/22/19 14:35 Urine Urobilinogen Normal (NORMAL) 09/22/19 14:35 Ur Leukocyte Esterase Negative (NEGATIVE) 09/22/19 14:35 Urine RBC None seen /HPF (0-3) 09/22/19 14:35 Urine WBC 0-2 /HPF (0-5) 09/22/19 14:35 Ur Squamous Epith Cells Rare /HPF (NEGATIVE) 09/22/19 14:35 Urine Bacteria Negative /HPF (NEGATIVE) 09/22/19 14:35 Ur Culture Indicated? No/not indicated 09/22/19 14:35 Opioid Opioid Risk Tool Age ([place] if 16-45): No History of Preadolescent Sexual Abuse: No Total: 0 Total Score Risk Category: Low Risk Copyright: Leandro SANCHEZ predicting aberrant behaviors Diagnosis Discharge Problem: Respiratory distress CHF exacerbation Qualifiers: Heart failure type: combined systolic and diastolic Qualified Code(s): I50.43 - Acute on chronic combined systolic (congestive) and diastolic (congestive) heart failure Instructions Forms: Excuse From Work Patient Portal
--- NOTE | 2019-09-22 11:17 | RAD ---
HISTORYShortness of breathSTUDYPortable AP chestCOMPARISONJanuary 2019FINDINGSThere is moderately severe cardiomegaly as before. Vascular congestion is improved from the . There is resolution of previously demonstrated right upper lobe infiltrate. There is mild interstitial edema. There is no significant effusion. There has been previous sternotomy.IMPRESSIONChronic moderately severe cardiomegaly with improved findings of CHF compared to prior examElectronically signed by: CHELSEA DALE (Sep 22, 2019 11:15:34)
[2019-09-22 11:46] LABS: BASOPHILS % (AUTO) 0.8 % (0.2-1.0); EOSINOPHILS # (AUTO) 0.1 x10^3/uL (0.0-0.2); EOSINOPHILS % (AUTO) 2.3 % (0.9-2.9); HEMATOCRIT 21.5 % (42.0-54.0); HEMOGLOBIN 7.2 g/dL (13.5-18.0); LYMPHOCYTES # (AUTO) 0.4 X10^3/uL (1.3-2.9); LYMPHOCYTES % (AUTO) 8.6 % (21.0-51.0); MEAN CORPUSCULAR HEMOGLOBIN 30.5 pg (27.0-34.0); MEAN CORPUSCULAR HGB CONC 33.3 g/dL (33.0-35.0); MEAN CORPUSCULAR VOLUME 91.5 fL (80.0-100.0); MONOCYTES # (AUTO) 0.4 x10^3/uL (0.3-0.8); MONOCYTES % (AUTO) 7.7 % (0.0-13.0); NEUTROPHILS % (AUTO) 80.6 % (42.0-75.0); PLATELET COUNT 175 X10^3/uL (150.0-450.0); RED BLOOD COUNT 2.35 X10^6/uL (4.7-6.0); WHITE BLOOD COUNT 4.9 X10^3/uL (3.6-10.0)
[2019-09-22 12:12] LABS: ALBUMIN 3.2 g/dL (3.4-5.0); CALCIUM 8.7 mg/dL (8.5-10.1); CARBON DIOXIDE 27.4 mmol/L (21-32); CKMB % 1.3 % (<4); COR CA(FOR HYPOALB) 9.3 mg/dL (8.5-10.1); CREATINE KINASE MB 1.5 ng/mL (0-4.0); CREATININE 3.25 mg/dL (0.70-1.30); TOTAL PROTEIN 6.3 g/dL (6.4-8.2)
[2019-09-22 12:19] LABS: PLATELET MORPHOLOGY COMMENT NORMAL (NORMAL)
[2019-09-22 12:20] LABS: ANISOCYTOSIS SLIGHT; HYPOCHROMASIA 1+; MICROCYTOSIS 1+
[2019-09-22 12:25] LABS: TROPONIN I 0.21 ng/mL (0-1.5)
[2019-09-22] MEDS ORDERED: DUONEB 0.5 MG/3 MG (3 mL) NEB ONE ×2 (12:40→12:42)
[2019-09-22] MEDS ORDERED: LASIX IVP ONE ×2 (12:40→12:42)
[2019-09-22 14:48] LABS: BILIRUBIN,URINE NEGATIVE (NEGATIVE); BLOOD/HEMOGLOBIN,URINE NEGATIVE (NEGATIVE); GLUCOSE, URINE NEGATIVE (NEGATIVE); KETONES,URINE NEGATIVE (NEGATIVE); LEUKOCYTE ESTERASE ,URINE NEGATIVE (NEGATIVE); NITRITES,URINE NEGATIVE (NEGATIVE); PROTEIN,URINE 2+ (NEGATIVE); UROBILINOGEN,URINE NORMAL (NORMAL)
[2019-09-22 14:58] LABS: APPEARANCE,URINE CLEAR (CLEAR); COLOR,URINE YELLOW (YELLOW)
[2019-09-22 14:59] LABS: BACTERIA,URINE NEGATIVE /HPF (NEGATIVE); RBC,URINE NONE SEEN /HPF (0-3); SQUAMOUS EPITHELIAL CELL,UR RARE /HPF (NEGATIVE)
[2019-09-22 15:28] LABS: ABG ALLEN TEST POS; ABG BASE EXCESS 3.5 mmol/L (-2.0-2.0); ABG HCO3 28.5 mmol/L (22-26)
[2019-09-22 19:31] LABS: CKMB % 1.3 % (<4); CREATINE KINASE MB 1.6 ng/mL (0-4.0); TROPONIN I 0.17 ng/mL (0-1.5)
[2019-09-22] MEDS: PROSCAR PO SCH (20:55)
[2019-09-22] MEDS: COREG TAB 12.5 MG PO SCH (20:55)
[2019-09-22] MEDS: LIPITOR TAB 40 MG PO SCH (20:55)
[2019-09-22] MEDS: APRESOLINE TAB 25 MG PO SCH (21:00)
[2019-09-22 21:33] LABS: BILIRUBIN,URINE NEGATIVE (NEGATIVE); BLOOD/HEMOGLOBIN,URINE NEGATIVE (NEGATIVE); GLUCOSE, URINE NEGATIVE (NEGATIVE); KETONES,URINE NEGATIVE (NEGATIVE); LEUKOCYTE ESTERASE ,URINE NEGATIVE (NEGATIVE); NITRITES,URINE NEGATIVE (NEGATIVE); PROTEIN,URINE 2+ (NEGATIVE); UROBILINOGEN,URINE NORMAL (NORMAL)
[2019-09-22 21:46] LABS: APPEARANCE,URINE CLEAR (CLEAR); BACTERIA,URINE TRACE /HPF (NEGATIVE); COLOR,URINE PALE YELLOW (YELLOW); RBC,URINE NONE SEEN /HPF (0-3); SQUAMOUS EPITHELIAL CELL,UR MODERATE /HPF (NEGATIVE)
[2019-09-23 01:26] LABS: CKMB % 1.6 % (<4); CREATINE KINASE MB 1.5 ng/mL (0-4.0); TROPONIN I 0.16 ng/mL (0-1.5)
[2019-09-23] MEDS: APRESOLINE TAB 25 MG PO SCH ×3 (05:44→21:40)
[2019-09-23 07:20] LABS: ALANINE AMINOTRANSFERASE 40 Units/L (12-78); ALBUMIN 2.9 g/dL (3.4-5.0); ALKALINE PHOSPHATASE 58 Units/L (46-116); ASPARTATE AMINO TRANSFERASE 22 Units/L (15-37); BLOOD UREA NITROGEN 51 mg/dL (7-18); CALCIUM 8.5 mg/dL (8.5-10.1); CARBON DIOXIDE 27.9 mmol/L (21-32); CHLORIDE 107 mmol/L (98-107); CHOL/HDL RATIO 2.1 (0.0-5.0); CHOLESTEROL 107 mg/dL (0-200); COR CA(FOR HYPOALB) 9.4 mg/dL (8.5-10.1); CREATININE 3.03 mg/dL (0.70-1.30); HDL CHOLESTEROL 51 mg/dL (40-60); SODIUM 142 mmol/L (136-145); TOTAL PROTEIN 5.8 g/dL (6.4-8.2); TRIGLYCERIDES 48 mg/dL (0-150); eGFR NON BLACK RACES 21 (>60)
[2019-09-23 07:24] LABS: BASOPHILS # (AUTO) 0.1 X10^3/uL (0.0-0.1); BASOPHILS % (AUTO) 1.2 % (0.2-1.0); EOSINOPHILS # (AUTO) 0.2 x10^3/uL (0.0-0.2); EOSINOPHILS % (AUTO) 4.4 % (0.9-2.9); HEMATOCRIT 21.4 % (42.0-54.0); HEMOGLOBIN 7.1 g/dL (13.5-18.0); LYMPHOCYTES # (AUTO) 0.8 X10^3/uL (1.3-2.9); LYMPHOCYTES % (AUTO) 16.7 % (21.0-51.0); MEAN CORPUSCULAR HEMOGLOBIN 30.5 pg (27.0-34.0); MEAN CORPUSCULAR HGB CONC 33.3 g/dL (33.0-35.0); MEAN CORPUSCULAR VOLUME 91.4 fL (80.0-100.0); MONOCYTES # (AUTO) 0.5 x10^3/uL (0.3-0.8); MONOCYTES % (AUTO) 9.2 % (0.0-13.0); NEUTROPHILS # (AUTO) 3.5 x10^3/uL (2.2-4.8); NEUTROPHILS % (AUTO) 68.5 % (42.0-75.0); PLATELET COUNT 167 X10^3/uL (150.0-450.0); RED BLOOD COUNT 2.34 X10^6/uL (4.7-6.0); RED CELL DISTRIBUTION WIDTH 16.1 % (11.6-16.5); WHITE BLOOD COUNT 5.1 X10^3/uL (3.6-10.0)
[2019-09-23 07:35] LABS: ANISOCYTOSIS SLIGHT; HYPOCHROMASIA SLIGHT; PLATELET MORPHOLOGY COMMENT NORMAL (NORMAL)
[2019-09-23] MEDS ORDERED: NS 500 ML IV 500 ML IV ONE (08:11)
[2019-09-23] MEDS ORDERED: TYLENOL 325 MG TAB PO PRN (08:11)
[2019-09-23] MEDS ORDERED: BENADRYL INJ 50 MG VIAL IVP PRN (08:11)
[2019-09-23 08:58] LABS: CKMB % 1.8 % (<4); CREATINE KINASE MB 1.8 ng/mL (0-4.0); TROPONIN I 0.18 ng/mL (0-1.5)
[2019-09-23] MEDS ORDERED: COLACE CAP 100 MG PO PRN (09:00)
[2019-09-23] MEDS ORDERED: PEPCID TAB 20 MG PO SCH (09:00)
[2019-09-23] MEDS ORDERED: PROTONIX TAB 40 MG PO SCH (09:00)
[2019-09-23] MEDS ORDERED: LEXAPRO ONE (09:27)
[2019-09-23] MEDS: SOLU-Medrol 125 MG VIAL IVP SCH ×2 (09:32→14:16)
[2019-09-23] MEDS: LASIX IVP SCH ×2 (09:32→21:42)
[2019-09-23] MEDS: PROCARDIA XL PO SCH (09:33)
[2019-09-23] MEDS: PROTONIX INJ 40 MG VIAL IVP SCH (09:33)
[2019-09-23] MEDS: ASPIRIN EC 81 MG PO SCH (09:33)
[2019-09-23] MEDS: FLOMAX PO SCH (09:33)
[2019-09-23] MEDS: COREG TAB 12.5 MG PO SCH ×2 (09:33→21:39)
[2019-09-23] MEDS: PLAVIX PO SCH (09:35)
[2019-09-23] MEDS: LEXAPRO PO SCH (09:36)
[2019-09-23] MEDS: NS 1000 ML 1,000 ML IV SCH (09:38)
[2019-09-23] MEDS: MICRO K EXTEN CAP 10 MEQ PO SCH (11:25)
--- NOTE | 2019-09-23 12:57 | DR.H&P ---
H&P - History & Physical for Day of: H&P Date: 09/22/19 - Chief Complaint Chief Complaint: SOB - History of Present Illness History of Present Illness: PT IS 84 BM ER ADMISSION AFTER PRESENTING WITH SOB. PT HAS PMH OF CHF, COPD AND WAS RECENTLY D/C HOME AFTER ACUTE ILLNESS WITH PNEUMONIA. ON ARRIVAL EMS REPORTED PTS HOME O2 WAS ON 0.5L, ONCE INCREASING O2 TO 2L PT O2 SAT WAS NORMAL. PT HAS PMH OF CRF, DM, HTN, OA, CHF, CAD AND COPD. PT EVALUATED IN ER AND ADMITTED FOR TREATMENT OF ACUTE ILLNESS. - Past Medical History Past Medical History: Coronary Artery Disease, Hypertension, Diabetes, Renal Dis ease, Anxiety, COPD, Arthritis, CHF Additional Medical History: Prostate Cancer, Bronchitis, Constipation, chronic anemia - Past Surgical History Surgical History: CABG/Valve Surgery - Family History Family Medical History: Diabetes Mellitus, Coronary Artery Disease, Heart Failure, Hypertension - Social History Does patient currently use any type of tobacco product: No Have you used tobacco products in the last 12 months: No Type of Tobacco Use: None Does any household member use tobacco: No Alcohol Use: None - Medications Home Medications: Iodinated Contrast Media Allergy (Verified 09/01/19 09:44) ketorolac [From Toradol] Allergy (Verified 09/01/19 09:44) lisinopril Allergy (Verified 09/01/19 09:44) - Review of Systems Constitutional: Weakness Eyes: No Symptoms Reported ENT: No Symptoms Reported Respiratory: Shortness of Breath, SOB with Excertion, Wheezing Cardiovascular: denies: Chest Pain, Edema Gastrointestinal: No Symptoms Reported Genitourinary: No Symptoms Reported Musculoskeletal: Leg Pain Skin: No Symptoms Reported Neurological: Confusion (MILD STABLE DEMENTIA) - Physical Exam Vital Signs: Temperature 97.8 F Pulse Rate [Right Brachial] 65 Pulse Rate 70 Respiratory Rate 20 Blood Pressure [Right Arm] 155/68 Blood Pressure [Left Arm] 168/82 Blood Pressure 133/99 O2 Sat by Pulse Oximetry 96 Oriented: Person Eyes: Normal Ear: Normal Nose: Normal Throat: Normal Respiratory: RLL Diminished, LLL Diminished Cardiovascular: Murmur : Normal Auscultation: Bowel Sounds: Normal Palpation: Normal Tenderness: Diffuse Skin: Normal Musculoskeletal: Right, Left, Knee, Tender Psychiatric: Anxiety Affect: Anxious Speech Pattern: Clear, Appropriate - Assessment/Plan (1) SOB (shortness of breath) Status: Acute Plan: ADMIT, SERIAL CE AND EKG. ADMISSION LABS, ABG ON ADMISSION. CXR ON ADMISSION, SUPPLEMENTAL O2, CARDIAC MONITRING. BP CONTROL, VERIFY AND RESUME HOME MEDICATION. REPEAT AM LABS, RESP CONSULT (2) Acute on chronic renal failure Status: Acute (3) Diabetes type 2, controlled Status: Acute (4) Hypertensive heart disease with CHF (congestive heart failure) Qualifiers: Heart failure type: unspecified Qualified Code(s): I11.0 - Hypertensive heart disease with heart failure Status: Acute (5) Iron deficiency anemia Status: Acute (6) Anemia Qualifiers: Anemia type: due to chronic kidney disease Status: Chronic (7) BPH (benign prostatic hyperplasia) Status: Chronic (8) CHF (congestive heart failure) Qualifiers: Heart failure type: unspecified Heart failure chronicity: acute on chronic Qualified Code(s): I50.9 - Heart failure, unspecified Status: Chronic (9) GERD (gastroesophageal reflux disease) Qualifiers: Status: Chronic - Allergies Allergies/Adverse Reactions: Allergies Allergy/AdvReac Type Severity Reaction Status Date / Time Iodinated Contrast Media Allergy Verified 09/01/19 09:44 ketorolac [From Toradol] Allergy Verified 09/01/19 09:44 lisinopril Allergy Verified 09/01/19 09:44
[2019-09-23 16:04] LABS: CKMB % 1.3 % (<4); CREATINE KINASE MB 1.5 ng/mL (0-4.0); TROPONIN I 0.11 ng/mL (0-1.5)
[2019-09-23 19:52] LABS: HEMATOCRIT 25.5 % (42.0-54.0); HEMOGLOBIN 8.5 g/dL (13.5-18.0)
[2019-09-23] MEDS: SNACK - Diabetic Appropriate PO SCH ×2 (20:00→22:55)
[2019-09-23 21:03] LABS: CKMB % 2.1 % (<4); CREATINE KINASE MB 1.9 ng/mL (0-4.0); TROPONIN I 0.1 ng/mL (0-1.5)
[2019-09-23] MEDS: PROSCAR PO SCH (21:40)
[2019-09-23] MEDS: LIPITOR TAB 40 MG PO SCH (21:41)
[2019-09-23] MEDS: HumuLIN R SUBCUT PRN (21:45)
[2019-09-24] MEDS: SOLU-Medrol 125 MG VIAL IVP SCH (00:09)
[2019-09-24 05:39] LABS: BASOPHILS % (AUTO) 0 % (0.2-1.0); HEMATOCRIT 25.1 % (42.0-54.0); HEMOGLOBIN 8.4 g/dL (13.5-18.0); LYMPHOCYTES # (AUTO) 0.1 X10^3/uL (1.3-2.9); LYMPHOCYTES % (AUTO) 2.6 % (21.0-51.0); MEAN CORPUSCULAR HEMOGLOBIN 30.1 pg (27.0-34.0); MEAN CORPUSCULAR HGB CONC 33.4 g/dL (33.0-35.0); MEAN CORPUSCULAR VOLUME 90.1 fL (80.0-100.0); MEAN PLATELET VOLUME 8.1 fL (7.4-11.0); MONOCYTES # (AUTO) 0.1 x10^3/uL (0.3-0.8); MONOCYTES % (AUTO) 1.4 % (0.0-13.0); NEUTROPHILS # (AUTO) 5.3 x10^3/uL (2.2-4.8); PLATELET COUNT 181 X10^3/uL (150.0-450.0); RED BLOOD COUNT 2.78 X10^6/uL (4.7-6.0); RED CELL DISTRIBUTION WIDTH 17.1 % (11.6-16.5); WHITE BLOOD COUNT 5.5 X10^3/uL (3.6-10.0)
[2019-09-24 05:46] LABS: ALBUMIN 2.9 g/dL (3.4-5.0); CALCIUM 8.6 mg/dL (8.5-10.1); CARBON DIOXIDE 30.6 mmol/L (21-32); COR CA(FOR HYPOALB) 9.5 mg/dL (8.5-10.1); CREATININE 3.05 mg/dL (0.70-1.30)
[2019-09-24] MEDS: HumuLIN R SUBCUT PRN ×2 (06:07→11:41)
[2019-09-24] MEDS: APRESOLINE TAB 25 MG PO SCH ×2 (06:07→13:54)
[2019-09-24 06:44] LABS: BAND NEUTROPHILS % 2 % (0-10); PLATELET MORPHOLOGY COMMENT NORMAL (NORMAL)
[2019-09-24] MEDS ORDERED: LEXAPRO ONE (08:47)
[2019-09-24] MEDS ORDERED: PEPCID 20 MG IV PREMIX IV SCH (09:00)
[2019-09-24] MEDS: COREG TAB 12.5 MG PO SCH (09:24)
[2019-09-24] MEDS: FLOMAX PO SCH (09:24)
[2019-09-24] MEDS: ASPIRIN EC 81 MG PO SCH (09:24)
[2019-09-24] MEDS: LEXAPRO PO SCH (09:24)
[2019-09-24] MEDS: NS 1000 ML 1,000 ML IV SCH (09:25)
[2019-09-24] MEDS: MICRO K EXTEN CAP 10 MEQ PO SCH (09:25)
[2019-09-24] MEDS: LASIX IVP SCH (09:25)
[2019-09-24] MEDS: PLAVIX PO SCH (09:25)
[2019-09-24] MEDS: PROCARDIA XL PO SCH (09:26)
[2019-09-24] MEDS: PROTONIX INJ 40 MG VIAL IVP SCH (09:26)
--- NOTE | 2019-09-24 10:13 | RAD ---
HISTORYCHFSTUDYPA and lateral chestCOMPARISONJanuary 2019FINDINGSThere is slightly improved cardiomegaly. There is new subsegmental atelectasis in the left lower lobe. There are small bilateral pleural effusions. The aorta is tortuous. There is been prior coronary artery bypass grafting surgery.IMPRESSIONImproved findings of CHF with persistent small pleural effusionsSubsegmental atelectasis in the left lower lobeElectronically signed by: CHELSEA DALE (Sep 24, 2019 10:12:15)
[2019-09-24] MEDS ORDERED: SOLU-Medrol 40 MG VIAL IVP ONE (11:11)
[2019-09-24 15:24] VITALS: BP 157/62
== END 2019-09-24 15:47 | disposition home health service (06) ==
LOC: ER 10:22 → MED/SURG 10:22
PROVIDERS: ADMIT Internal Medicine; ATTEND Internal Medicine
DX: K21.9 Gastro-esophageal reflux disease without esophagitis; F41.8 Other specified anxiety disorders; I25.10 Atherosclerotic heart disease of native coronary artery without angina pectoris; N40.0 Benign prostatic hyperplasia without lower urinary tract symptoms; I13.0 Hypertensive heart and chronic kidney disease with heart failure and stage 1 through stage 4 chronic kidney disease, or unspecified chronic kidney disease; I50.43 Acute on chronic combined systolic (congestive) and diastolic (congestive) heart failure; E11.22 Type 2 diabetes mellitus with diabetic chronic kidney disease; R94.31 Abnormal electrocardiogram [ECG] [EKG]; D50.8 Other iron deficiency anemias; N18.9 Chronic kidney disease, unspecified; E11.65 Type 2 diabetes mellitus with hyperglycemia; N17.8 Other acute kidney failure; D63.1 Anemia in chronic kidney disease; Z99.81 Dependence on supplemental oxygen; J44.1 Chronic obstructive pulmonary disease with (acute) exacerbation; J96.11 Chronic respiratory failure with hypoxia
CPT/HCPCS: 36415; 36430; 36600; 71010; 71020; 71045; 71046; 80053; 80061; 81001; 82550; 82553; 82607; 82728; 82746; 82803; 83540; 83880; 84466; 84484; 85014; 85018; 85025; 86850; 86900; 86901; 86922; 93005; 94760; 96360; 96361; 96365; 96372; 96374; 99284; A4216; A4222; C9113; G0378; J1200; J1815; J1940; J2920; J2930; J3490; J7030; J7040; J7620; P9016; S0028; S0138

== ENCOUNTER 2019-09-29 12:22 | Inpatient (IN) ==
--- NOTE | 2019-09-29 12:31 | DR.SOBA ---
HPI Time Seen Time Seen by Provider: 09/29/19 13:16 HPI Comment HPI Comment: Concern that patient was breathing hard. EMS reports that sat was 99% on his 2 L. Pt. does not l;rody to wear oxygen and will run 89 to 90 w/o it on. Pt. denies SOB, cough, or CP Complaints Chief Complaint Doctors Comments: Pt. had reported 8 pound weight gain. Reviewed Nurses Notes Reviewed: Yes Source History Provided: Patient and EMS Mode of Arrival Mode of Arrival: EMS Duration Duration: Unknown (chronic CHF multiple admission this year already) Context Onset:: With Light Exertion PE Risk Factors:: None History of:: CHF Currently on:: Inhaled Bronchodilators Prehospital Care:: O2 Modifying Factors Worsens:: Exertion Improves:: Other (lasix) Associated Signs and Symptoms Associated Signs and Symptoms: denies Fever, Wheeze, Cough, Hemoptysis, Chest Pain, Leg Swelling, Calf Pain and Anxiety If Cough Cough: None PMH PMH Past Medical History: Anxiety, Arthritis, CHF, COPD, Coronary Artery Disease, Diabetes, Hypertension and Renal Disease Past Surgical History: Yes Surgical History: CABG/Valve Surgery Family History Family Medical History: Diabetes Mellitus, Coronary Artery Disease, Heart Failure and Hypertension Social History Do you use any recreational Drugs:: No infectious screening Isolation: Standard ROS Review of Systems Constitutional: No Symptoms Reported Eyes: No Symptoms Reported ENTM: No Symptoms Reported Respiratoy: Orthopnea and Short of Breath; negative Productive Cough, Dry Cough, Wheezing and Hemoptysis Cardiovascular: See HPI (dyspnea on excertion); negative Edema Gastrointestinal/Abdominal: No Symptoms Reported Genitourinary: No Symptoms Reported Neurological: No Symptoms Reported Musculoskeletal: No Symptoms Reported Integumentary: No Symptoms Reported Hematologic/Lymphatic: No Symptoms Reported Endocrine: No Symptoms Reported Psychiatric: No Symptoms Reported PE Vital Signs Vitals: Temperature 98.8 F Pulse Rate [Left Brachial] 70 Pulse Rate 71 Respiratory Rate 16 Blood Pressure [Right Arm] 147/81 Blood Pressure 145/65 O2 Sat by Pulse Oximetry 97 General Limitations: No Limitations General Appearance: Alert and In Distress (very mild distress); negative Anxious Head Head Exam: Normal Inspection ENT ENT Exam: Normal Exam Neck Neck Exam: Normal Inspection Chest Chest Inspection: Normal Inspection Respiratory Respiratory Exam: Bilateral: Rales (bases) and Bilateral: Crackles (bases) Abdominal Exam Abdominal Exam: Normal Inspection, Normal Bowel Sounds and Soft; negative Distention Extremities Extremities Exam: Edema (trace LE b/l) Back Back Exam: Normal Inspection Neurologic Neurological Exam: Alert and Oriented X3; negative Motor Sensory Deficit Psychiatric Psychiatric Exam: Normal Affect and Normal Mood; negative Agitated and Anxious Skin Skin Exam: Warm, Dry and Normal Color MDM Differential Diagnosis Differential Diagnosis: Bronchitis, CHF, COPD, Pneumonia, Pneumothorax, Pulmonary embolism and URI COURSE Treatment Treatment: Pt. in NAD ROR Labs Reviewed Laboratory Results Reviewed?: Yes Result Diagrams: 09/29/19 13:32 09/29/19 13:32 Laboratory: WBC 4.9 X10^3/uL (3.6-10.0) 09/29/19 13:32 RBC 2.96 X10^6/uL (4.7-6.0) L 09/29/19 13:32 Hgb 8.9 g/dL (13.5-18.0) L 09/29/19 13:32 Hct 27.1 % (42.0-54.0) L 09/29/19 13:32 MCV 91.5 fL (80.0-100.0) 09/29/19 13:32 MCH 30.2 pg (27.0-34.0) 09/29/19 13:32 MCHC 33.0 g/dL (33.0-35.0) 09/29/19 13:32 RDW 18.0 % (11.6-16.5) H 09/29/19 13:32 Plt Count 144 X10^3/uL (150.0-450.0) L 09/29/19 13:32 MPV 7.5 fL (7.4-11.0) 09/29/19 13:32 Neut % (Auto) 84.1 % (42.0-75.0) H 09/29/19 13:32 Lymph % (Auto) 6.9 % (21.0-51.0) L 09/29/19 13:32 [place] % (Auto) 6.0 % (0.0-13.0) 09/29/19 13:32 Eos % (Auto) 2.3 % (0.9-2.9) 09/29/19 13:32 Baso % (Auto) 0.7 % (0.2-1.0) 09/29/19 13:32 Neut # (Auto) 4.2 x10^3/uL (2.2-4.8) 09/29/19 13:32 Lymph # (Auto) 0.3 X10^3/uL (1.3-2.9) L 09/29/19 13:32 [place] # (Auto) 0.3 x10^3/uL (0.3-0.8) 09/29/19 13:32 Eos # (Auto) 0.1 x10^3/uL (0.0-0.2) 09/29/19 13:32 Baso # (Auto) 0.0 X10^3/uL (0.0-0.1) 09/29/19 13:32 Absolute Nucleated RBC 0.0 /100WBC 09/29/19 13:32 Sodium 145 mmol/L (136-145) 09/29/19 13:32 Corrected Sodium 146 mmol/L (136-145) H 09/29/19 13:32 Potassium 6.0 mmol/L (3.5-5.1) H* 09/29/19 13:32 Chloride 111 mmol/L (98-107) H 09/29/19 13:32 Carbon Dioxide 29.1 mmol/L (21-32) 09/29/19 13:32 BUN 49 mg/dL (7-18) H 09/29/19 13:32 Creatinine 2.77 mg/dL (0.70-1.30) H 09/29/19 13:32 Est GFR (MDRD) Af Amer 28 (>60) L 09/29/19 13:32 Est GFR (MDRD) Non-Af 23 (>60) L 09/29/19 13:32 Glucose 134 mg/dL (65-99) H 09/29/19 13:32 Calcium 8.6 mg/dL (8.5-10.1) 09/29/19 13:32 Corrected Calcium 9.3 mg/dL (8.5-10.1) 09/29/19 13:32 Total Bilirubin 0.20 mg/dL (0.2-1.0) 09/29/19 13:32 AST 31 Units/L (15-37) 09/29/19 13:32 ALT 63 Units/L (12-78) 09/29/19 13:32 Alkaline Phosphatase 57 Units/L (46-116) 09/29/19 13:32 Creatine Kinase 96 Units/L (39-308) 09/29/19 13:32 CK-MB (CK-2) 2.0 ng/mL (0-4.0) 09/29/19 13:32 CK/CKMB % Calc 2.1 % (<4) 09/29/19 13:32 Troponin I 0.06 ng/mL (0-1.5) 09/29/19 13:32 B-Natriuretic Peptide 669 pg/mL (0-79) H* 09/29/19 13:32 Total Protein 6.2 g/dL (6.4-8.2) L 09/29/19 13:32 Albumin 3.1 g/dL (3.4-5.0) L 09/29/19 13:32 Globulin 3.1 g/dL (2.5-4.5) 09/29/19 13:32 Albumin/Globulin Ratio 1.0 Ratio (1.1-2.1) L 09/29/19 13:32 XRAY XRAY Interpreted by: Self XRAY Findings: CHF with pulmonary vascular congestion, neg infiltrate EKG Compared to prior EKG Dated: 09/15/19 Rate: 68 Mobile: Normal Rhythm: NSR Block: LBBB (LAHB) and RBBB Hypertrophy: LVH ST: Nonsp Opioid Opioid Risk Tool Age ([place] if 16-45): No History of Preadolescent Sexual Abuse: No Total: 0 Total Score Risk Category: Low Risk Copyright: Leandro SANCHEZ predicting aberrant behaviors Procedures Procedure Comments Procedures: critical care 48 minutes Diagnosis Discharge Problem: Pulmonary vascular congestion, Acute hyperkalemia, Chronic kidney disease (CKD) stage G4/A1, severely decreased glomerular filtration rate (GFR) between 15-29 mL/min/1.73 square meter and albuminuria creatinine ratio less than 30 mg/g Instructions Forms: Excuse From Work Patient Portal
--- NOTE | 2019-09-29 13:13 | RAD ---
HISTORYSOB prostate cancer, COPD, CHF, CADSTUDYCHEST, PA/LAT ADULTCOMPARISONX-ray 09/24/2019FINDINGSThe trachea is midline. The cardiac silhouette is enlarged with pulmonary venous congestion and pulmonary edema. Prior cardiac surgery.Likely mild atelectasis in the left lung base. Moderate left-sided and small right-sided pleural effusions are suspected.No acute bony abnormality is seen.IMPRESSIONWorsening CHF and pulmonary edema. Pleural effusions are similar to prior study.Electronically signed by: Valentin Hernandez (Sep 29, 2019 13:12:10)
[2019-09-29] MEDS ORDERED: NITROSTAT SL ONE (13:23)
[2019-09-29] MEDS ORDERED: LASIX IVP ONE ×2 (13:24→13:26)
[2019-09-29] MEDS ORDERED: LASIX ONE (13:26)
[2019-09-29 13:58] LABS: BASOPHILS % (AUTO) 0.7 % (0.2-1.0); EOSINOPHILS # (AUTO) 0.1 x10^3/uL (0.0-0.2); EOSINOPHILS % (AUTO) 2.3 % (0.9-2.9); HEMATOCRIT 27.1 % (42.0-54.0); HEMOGLOBIN 8.9 g/dL (13.5-18.0); LYMPHOCYTES # (AUTO) 0.3 X10^3/uL (1.3-2.9); LYMPHOCYTES % (AUTO) 6.9 % (21.0-51.0); MEAN CORPUSCULAR HEMOGLOBIN 30.2 pg (27.0-34.0); MEAN CORPUSCULAR VOLUME 91.5 fL (80.0-100.0); MEAN PLATELET VOLUME 7.5 fL (7.4-11.0); MONOCYTES # (AUTO) 0.3 x10^3/uL (0.3-0.8); NEUTROPHILS # (AUTO) 4.2 x10^3/uL (2.2-4.8); NEUTROPHILS % (AUTO) 84.1 % (42.0-75.0); PLATELET COUNT 144 X10^3/uL (150.0-450.0); RED BLOOD COUNT 2.96 X10^6/uL (4.7-6.0); WHITE BLOOD COUNT 4.9 X10^3/uL (3.6-10.0)
[2019-09-29 14:08] LABS: ALBUMIN 3.1 g/dL (3.4-5.0); CALCIUM 8.6 mg/dL (8.5-10.1); CARBON DIOXIDE 29.1 mmol/L (21-32); CKMB % 2.1 % (<4); COR CA(FOR HYPOALB) 9.3 mg/dL (8.5-10.1); CREATININE 2.77 mg/dL (0.70-1.30); TOTAL PROTEIN 6.2 g/dL (6.4-8.2); TROPONIN I 0.06 ng/mL (0-1.5)
[2019-09-29] MEDS ORDERED: D50W ABBOJECT SYR IV ONE (14:20)
[2019-09-29] MEDS ORDERED: HumuLIN R IV ONE (14:21)
[2019-09-29] MEDS ORDERED: D50W ABBOJECT SYR ONE (14:23)
[2019-09-29] MEDS ORDERED: HumuLIN R ONE ×2 (14:24→14:25)
[2019-09-29 15:48] VITALS: BMI 24.5
[2019-09-29] MEDS: XOPENEX 1.25 MG/3 ML NEBULE NEB SCH ×2 (16:26→17:08)
[2019-09-29] MEDS ORDERED: NS 1000 ML 1,000 ML IV SCH (18:00)
[2019-09-29] MEDS: SNACK - Diabetic Appropriate PO SCH (20:30)
[2019-09-29] MEDS: LASIX IVP SCH (21:05)
[2019-09-30 00:28] LABS: BILIRUBIN,URINE NEGATIVE (NEGATIVE); BLOOD/HEMOGLOBIN,URINE 2+ (NEGATIVE); GLUCOSE, URINE NEGATIVE (NEGATIVE); KETONES,URINE NEGATIVE (NEGATIVE); LEUKOCYTE ESTERASE ,URINE NEGATIVE (NEGATIVE); NITRITES,URINE NEGATIVE (NEGATIVE); PROTEIN,URINE 2+ (NEGATIVE); UROBILINOGEN,URINE NORMAL (NORMAL)
[2019-09-30 00:34] LABS: APPEARANCE,URINE CLEAR (CLEAR); COLOR,URINE STRAW (YELLOW)
[2019-09-30] MEDS ORDERED: HumuLIN R SUBCUT PRN (00:43)
[2019-09-30 01:09] LABS: BACTERIA,URINE NEGATIVE /HPF (NEGATIVE); MUCUS,URINE FEW /HPF (NEGATIVE); RBC,URINE NONE SEEN /HPF (0-3); SQUAMOUS EPITHELIAL CELL,UR NEGATIVE /HPF (NEGATIVE)
[2019-09-30 05:13] LABS: BASOPHILS % (AUTO) 0.6 % (0.2-1.0); EOSINOPHILS # (AUTO) 0.2 x10^3/uL (0.0-0.2); EOSINOPHILS % (AUTO) 2.4 % (0.9-2.9); HEMATOCRIT 25.9 % (42.0-54.0); HEMOGLOBIN 8.6 g/dL (13.5-18.0); LYMPHOCYTES # (AUTO) 0.8 X10^3/uL (1.3-2.9); LYMPHOCYTES % (AUTO) 11.5 % (21.0-51.0); MEAN CORPUSCULAR HEMOGLOBIN 30.6 pg (27.0-34.0); MEAN CORPUSCULAR HGB CONC 33.1 g/dL (33.0-35.0); MEAN CORPUSCULAR VOLUME 92.6 fL (80.0-100.0); MEAN PLATELET VOLUME 8.6 fL (7.4-11.0); MONOCYTES # (AUTO) 0.6 x10^3/uL (0.3-0.8); MONOCYTES % (AUTO) 8.6 % (0.0-13.0); NEUTROPHILS # (AUTO) 5.3 x10^3/uL (2.2-4.8); NEUTROPHILS % (AUTO) 76.9 % (42.0-75.0); PLATELET COUNT 140 X10^3/uL (150.0-450.0); WHITE BLOOD COUNT 6.9 X10^3/uL (3.6-10.0)
[2019-09-30 05:27] LABS: ALANINE AMINOTRANSFERASE 53 Units/L (12-78); ALKALINE PHOSPHATASE 52 Units/L (46-116); ASPARTATE AMINO TRANSFERASE 28 Units/L (15-37); BLOOD UREA NITROGEN 50 mg/dL (7-18); CALCIUM 8.5 mg/dL (8.5-10.1); CARBON DIOXIDE 28.8 mmol/L (21-32); CHLORIDE 110 mmol/L (98-107); COR CA(FOR HYPOALB) 9.3 mg/dL (8.5-10.1); CREATININE 2.76 mg/dL (0.70-1.30); SODIUM 145 mmol/L (136-145); eGFR NON BLACK RACES 23 (>60)
[2019-09-30] MEDS: LASIX IVP SCH ×2 (09:23→21:17)
[2019-09-30 10:11] LABS: ABG BASE EXCESS 4.3 mmol/L (-2.0-2.0); ABG HCO3 29.8 mmol/L (22-26)
[2019-09-30 10:12] LABS: ABG ALLEN TEST POS
[2019-09-30] MEDS: XOPENEX 1.25 MG/3 ML NEBULE NEB SCH ×2 (12:00→18:00)
--- NOTE | 2019-09-30 18:47 | DR.H&P ---
H&P - History & Physical for Day of: H&P Date: 09/29/19 - Chief Complaint Chief Complaint: SOB, WEAKNESS, DIZZINESS - History of Present Illness History of Present Illness: PT IS 84 BM ER ADMISSION WITH CO SOB. PT WAS SENT TO ER PER HOME HEALTH NURSE DUE TO TACHYPNEA AND CO WEAKNESS. FAMILY REPORTS THEY CAN NO LONGER CARE FOR PT AT HOME. PT HAS HEART FAILURE, RENAL FAILURE, COPD, OA, HTN. PT HAS BEEN ON HOME O2. PT HAS HAD 3 HOSPITAL ADMITS THIS MONTH AND MULTIPLE ER VISITS WITH SAME COMPLAINTS. PT WAS ADMITTED FOR TREATMENT OF CHF EXACERBATION AND WEAKNESS, WILL CONSULT CASE MANAGEMENT FOR ASSISTED PLACEMENT - Past Medical History Past Medical History: Coronary Artery Disease, Hypertension, Diabetes, Renal Disease, Anxiety, COPD, Arthritis, CHF Additional Medical History: Prostate Cancer, Bronchitis, Constipation, chronic anemia - Past Surgical History Surgical History: CABG/Valve Surgery - Family History Family Medical History: Diabetes Mellitus, Coronary Artery Disease, Heart Failure, Hypertension - Social History Does patient currently use any type of tobacco product: No Have you used tobacco products in the last 12 months: No Type of Tobacco Use: None Does any household member use tobacco: No Alcohol Use: None Drug Use: None - Medications Home Medications: Iodinated Contrast Media Allergy (Verified 09/01/19 09:44) ketorolac [From Toradol] Allergy (Verified 09/01/19 09:44) lisinopril Allergy (Verified 09/01/19 09:44) - Review of Systems Constitutional: Weakness Eyes: No Symptoms Reported ENT: No Symptoms Reported Respiratory: Shortness of Breath Cardiovascular: Chest Pain, Edema, Light Headedness Gastrointestinal: No Symptoms Reported Genitourinary: Frequency Musculoskeletal: Back Pain, Leg Pain Skin: No Symptoms Reported Neurological: Weakness, Other (DIZZINESS) - Physical Exam Vital Signs: Temperature 98.4 F Pulse Rate [Left Brachial] 70 Pulse Rate 68 Respiratory Rate 15 Blood Pressure [Right Arm] 147/81 Blood Pressure 167/71 O2 Sat by Pulse Oximetry 100 Oriented: Person Eyes: Normal Ear: Normal Nose: Normal Throat: Dry Respiratory: RLL Diminished, LLL Diminished Cardiovascular: Murmur, Edema. negative: Tachycardia : Normal Auscultation: Bowel Sounds: Normal Palpation: Normal Tenderness: Normal Skin: Decreased Turgur Musculoskeletal: Right, Left, Knee, Back:Thoracic, Back:Lumbar, Tender Psychiatric: Anxiety Affect: Anxious Speech Pattern: Clear, Appropriate - Assessment/Plan (1) CHF (congestive heart failure) Qualifiers: Heart failure type: combined systolic and diastolic Heart failure chronicity: acute on chronic Qualified Code(s): I50.43 - Acute on chronic combined systolic (congestive) and diastolic (congestive) heart failure Status: Acute Plan: ADMIT, ICU CE AND EKG ON ADMISSION. TALBOT CATH FOR STRICT I& OS. BP CONTROL, RESP CONSULT, SUPPLEMENTAL O2. IV LASIX, CARDIAC MONITORING. VERIFY HOME MEDICATION, BS CONTROL. CASE MANAGEMENT FOR NH PLACEMENT (2) Adult failure to thrive Status: Acute (3) COPD (chronic obstructive pulmonary disease) Qualifiers: COPD type: chronic bronchitis Chronic bronchitis type: simple Qualified Code(s): J41.0 - Simple chronic bronchitis Status: Acute (4) Chronic kidney disease (CKD) stage G4/A1, severely decreased glomerular filtration rate (GFR) between 15-29 mL/min/1.73 square meter and albuminuria cre atinine ratio less than 30 mg/g Status: Acute (5) BPH (benign prostatic hyperplasia) Status: Chronic (6) Hypertension, uncontrolled Status: Chronic (7) Diabetes mellitus Qualifiers: Diabetes mellitus type: type 2 Diabetes mellitus supervisor intermediates insulin use: unspecified fpc insulin use status Diabetes mellitus complication status: with other specified complication Qualified Code(s): E11.69 - Type 2 diabetes mellitus with other specified complication Status: Chronic (8) Coronary artery disease Status: Chronic (9) GERD (gastroesophageal reflux disease) Qualifiers: Status: Chronic - Allergies Allergies/Adverse Reactions: Allergies Allergy/AdvReac Type Severity Reaction Status Date / Time Iodinated Contrast Media Allergy Verified 09/01/19 09:44 ketorolac [From Toradol] Allergy Verified 09/01/19 09:44 lisinopril Allergy Verified 09/01/19 09:44
[2019-09-30] MEDS: SNACK - Diabetic Appropriate PO SCH (20:40)
[2019-09-30] MEDS: LEXAPRO PO SCH (21:10)
[2019-09-30] MEDS: PLAVIX PO SCH (21:11)
[2019-09-30] MEDS: PROSCAR PO SCH (21:14)
[2019-09-30] MEDS: COLACE CAP 100 MG PO SCH (21:16)
[2019-09-30] MEDS: MILK OF MAGNESIA PO SCH (21:17)
[2019-09-30] MEDS: COREG TAB 12.5 MG PO SCH (21:17)
[2019-09-30] MEDS: LIPITOR TAB 40 MG PO SCH (21:17)
[2019-09-30] MEDS: APRESOLINE TAB 25 MG PO SCH (21:18)
[2019-09-30] MEDS ORDERED: HYDRALAZINE 50 MG PO SCH (22:00)
[2019-10-01] MEDS: XOPENEX 1.25 MG/3 ML NEBULE NEB SCH ×4 (00:20→17:25)
[2019-10-01 05:21] LABS: BASOPHILS # (AUTO) 0.1 X10^3/uL (0.0-0.1); BASOPHILS % (AUTO) 0.9 % (0.2-1.0); EOSINOPHILS # (AUTO) 0.2 x10^3/uL (0.0-0.2); EOSINOPHILS % (AUTO) 3.7 % (0.9-2.9); HEMATOCRIT 24.2 % (42.0-54.0); HEMOGLOBIN 7.8 g/dL (13.5-18.0); LYMPHOCYTES # (AUTO) 0.8 X10^3/uL (1.3-2.9); LYMPHOCYTES % (AUTO) 15.1 % (21.0-51.0); MEAN CORPUSCULAR HEMOGLOBIN 30.3 pg (27.0-34.0); MEAN CORPUSCULAR HGB CONC 32.3 g/dL (33.0-35.0); MEAN CORPUSCULAR VOLUME 93.9 fL (80.0-100.0); MEAN PLATELET VOLUME 8.5 fL (7.4-11.0); MONOCYTES # (AUTO) 0.5 x10^3/uL (0.3-0.8); MONOCYTES % (AUTO) 9.1 % (0.0-13.0); NEUTROPHILS # (AUTO) 3.9 x10^3/uL (2.2-4.8); NEUTROPHILS % (AUTO) 71.2 % (42.0-75.0); PLATELET COUNT 115 X10^3/uL (150.0-450.0); RED BLOOD COUNT 2.58 X10^6/uL (4.7-6.0); RED CELL DISTRIBUTION WIDTH 18.2 % (11.6-16.5); WHITE BLOOD COUNT 5.5 X10^3/uL (3.6-10.0)
[2019-10-01 05:37] LABS: ALANINE AMINOTRANSFERASE 55 Units/L (12-78); ALBUMIN 2.9 g/dL (3.4-5.0); ALKALINE PHOSPHATASE 49 Units/L (46-116); ASPARTATE AMINO TRANSFERASE 30 Units/L (15-37); BLOOD UREA NITROGEN 48 mg/dL (7-18); CALCIUM 8.1 mg/dL (8.5-10.1); CARBON DIOXIDE 29.6 mmol/L (21-32); CHLORIDE 110 mmol/L (98-107); CREATININE 2.74 mg/dL (0.70-1.30); SODIUM 145 mmol/L (136-145); TOTAL PROTEIN 5.7 g/dL (6.4-8.2); eGFR NON BLACK RACES 24 (>60)
[2019-10-01] MEDS: APRESOLINE TAB 25 MG PO SCH ×3 (05:47→22:08)
[2019-10-01 06:06] LABS: PLATELET MORPHOLOGY COMMENT NORMAL (NORMAL)
[2019-10-01] MEDS ORDERED: LEXAPRO ONE (07:56)
[2019-10-01] MEDS: PLAVIX PO SCH (08:15)
[2019-10-01] MEDS: COREG TAB 12.5 MG PO SCH ×2 (08:15→20:52)
[2019-10-01] MEDS: PEPCID TAB 20 MG PO SCH (08:16)
[2019-10-01] MEDS: ASPIRIN EC 81 MG PO SCH (08:16)
[2019-10-01] MEDS: LEXAPRO PO SCH (08:16)
[2019-10-01] MEDS: TAB-A-VITE PO SCH (08:16)
[2019-10-01] MEDS: LASIX IVP SCH ×2 (08:16→20:50)
[2019-10-01] MEDS: MILK OF MAGNESIA PO SCH ×2 (08:17→20:52)
[2019-10-01] MEDS ORDERED: PATIENT'S HOME MEDICATION (Iron-Folic Acid-Mv, Min Cmb#15 [Hemocyte-Plus] 1 CAP) PO SCH (09:00)
--- NOTE | 2019-10-01 09:59 | RAD ---
HISTORYCHFSTUDYCHEST, 1 VIEWCOMPARISONFINDINGSThe trachea is midline. The cardiac silhouette is enlarged but stable in size compared to September 29, 2019. There is persistent central vascular congestion. There is an early alveolar infiltrate in the right lung base. Findings are suspicious for CHF with developing pulmonary alveolar edema right lung base.. The lungs are clear without focal infiltrate or effusion. The bony thorax is unremarkable.IMPRESSIONCardio megaly postsurgical chest vascular congestion interstitial and early alveolar edema right lung base consistent with CHF without significant change from the film of the 29 of September.Electronically signed by: ARTIE RODRIGUEZ (Oct 01, 2019 09:57:27)
[2019-10-01] MEDS: COLACE CAP 100 MG PO SCH (20:50)
[2019-10-01] MEDS: SNACK - Diabetic Appropriate PO SCH (20:50)
[2019-10-01] MEDS: LIPITOR TAB 40 MG PO SCH (20:50)
[2019-10-01] MEDS: PROSCAR PO SCH (20:51)
[2019-10-02] MEDS: XOPENEX 1.25 MG/3 ML NEBULE NEB SCH ×4 (00:35→17:27)
[2019-10-02] MEDS: APRESOLINE TAB 25 MG PO SCH ×3 (05:22→20:13)
[2019-10-02 06:00] LABS: BASOPHILS % (AUTO) 0.9 % (0.2-1.0); EOSINOPHILS # (AUTO) 0.2 x10^3/uL (0.0-0.2); EOSINOPHILS % (AUTO) 3.5 % (0.9-2.9); HEMOGLOBIN 8.1 g/dL (13.5-18.0); LYMPHOCYTES # (AUTO) 0.7 X10^3/uL (1.3-2.9); LYMPHOCYTES % (AUTO) 13.2 % (21.0-51.0); MEAN CORPUSCULAR HEMOGLOBIN 31.2 pg (27.0-34.0); MEAN CORPUSCULAR HGB CONC 33.7 g/dL (33.0-35.0); MEAN CORPUSCULAR VOLUME 92.7 fL (80.0-100.0); MEAN PLATELET VOLUME 8.4 fL (7.4-11.0); MONOCYTES # (AUTO) 0.5 x10^3/uL (0.3-0.8); NEUTROPHILS # (AUTO) 3.6 x10^3/uL (2.2-4.8); NEUTROPHILS % (AUTO) 72.4 % (42.0-75.0); PLATELET COUNT 110 X10^3/uL (150.0-450.0); RED BLOOD COUNT 2.59 X10^6/uL (4.7-6.0); RED CELL DISTRIBUTION WIDTH 17.8 % (11.6-16.5)
[2019-10-02 06:09] LABS: ALANINE AMINOTRANSFERASE 58 Units/L (12-78); ALBUMIN 2.9 g/dL (3.4-5.0); ALKALINE PHOSPHATASE 51 Units/L (46-116); ASPARTATE AMINO TRANSFERASE 32 Units/L (15-37); BLOOD UREA NITROGEN 44 mg/dL (7-18); CALCIUM 8.2 mg/dL (8.5-10.1); CARBON DIOXIDE 29.7 mmol/L (21-32); CHLORIDE 110 mmol/L (98-107); COR CA(FOR HYPOALB) 9.1 mg/dL (8.5-10.1); CREATININE 2.53 mg/dL (0.70-1.30); SODIUM 144 mmol/L (136-145); TOTAL PROTEIN 5.7 g/dL (6.4-8.2); eGFR NON BLACK RACES 26 (>60)
[2019-10-02] MEDS ORDERED: LEXAPRO ONE (08:30)
[2019-10-02] MEDS: PLAVIX PO SCH (09:24)
[2019-10-02] MEDS: COREG TAB 12.5 MG PO SCH ×2 (09:24→20:14)
[2019-10-02] MEDS: ASPIRIN EC 81 MG PO SCH (09:24)
[2019-10-02] MEDS: PEPCID TAB 20 MG PO SCH (09:24)
[2019-10-02] MEDS: LASIX IVP SCH ×2 (09:25→20:13)
[2019-10-02] MEDS: TAB-A-VITE PO SCH (09:25)
[2019-10-02] MEDS: MILK OF MAGNESIA PO SCH ×2 (09:25→20:15)
[2019-10-02] MEDS: LEXAPRO PO SCH (09:26)
[2019-10-02] MEDS ORDERED: APRESOLINE INJ 20 MG VIAL IVP ONE (17:38)
[2019-10-02] MEDS ORDERED: APRESOLINE INJ 20 MG VIAL ONE (17:40)
[2019-10-02] MEDS ORDERED: VALIUM PO PRN (19:44)
[2019-10-02] MEDS: PROSCAR PO SCH (20:14)
[2019-10-02] MEDS: LIPITOR TAB 40 MG PO SCH (20:14)
[2019-10-02] MEDS: COLACE CAP 100 MG PO SCH (20:15)
[2019-10-02] MEDS: SNACK - Diabetic Appropriate PO SCH (20:23)
[2019-10-03] MEDS: APRESOLINE INJ 20 MG VIAL IVP PRN ×3 (00:24→08:58)
[2019-10-03] MEDS: APRESOLINE TAB 25 MG PO SCH ×3 (05:13→21:04)
[2019-10-03] MEDS ORDERED: APRESOLINE TAB 25 MG PO SCH (06:00)
[2019-10-03] MEDS: XOPENEX 1.25 MG/3 ML NEBULE NEB SCH ×4 (06:04→18:13)
[2019-10-03 06:07] LABS: BASOPHILS % (AUTO) 0.8 % (0.2-1.0); EOSINOPHILS # (AUTO) 0.1 x10^3/uL (0.0-0.2); EOSINOPHILS % (AUTO) 2.5 % (0.9-2.9); HEMATOCRIT 25.6 % (42.0-54.0); HEMOGLOBIN 8.4 g/dL (13.5-18.0); LYMPHOCYTES # (AUTO) 0.6 X10^3/uL (1.3-2.9); LYMPHOCYTES % (AUTO) 10.2 % (21.0-51.0); MEAN CORPUSCULAR HEMOGLOBIN 30.5 pg (27.0-34.0); MEAN CORPUSCULAR VOLUME 92.5 fL (80.0-100.0); MEAN PLATELET VOLUME 8.4 fL (7.4-11.0); MONOCYTES # (AUTO) 0.5 x10^3/uL (0.3-0.8); MONOCYTES % (AUTO) 8.7 % (0.0-13.0); NEUTROPHILS # (AUTO) 4.5 x10^3/uL (2.2-4.8); NEUTROPHILS % (AUTO) 77.8 % (42.0-75.0); PLATELET COUNT 114 X10^3/uL (150.0-450.0); RED BLOOD COUNT 2.77 X10^6/uL (4.7-6.0); RED CELL DISTRIBUTION WIDTH 17.6 % (11.6-16.5); WHITE BLOOD COUNT 5.8 X10^3/uL (3.6-10.0)
[2019-10-03] MEDS: LASIX IVP SCH ×2 (06:29→19:02)
[2019-10-03 06:30] LABS: ALANINE AMINOTRANSFERASE 68 Units/L (12-78); ALKALINE PHOSPHATASE 60 Units/L (46-116); ASPARTATE AMINO TRANSFERASE 39 Units/L (15-37); BLOOD UREA NITROGEN 44 mg/dL (7-18); CALCIUM 8.4 mg/dL (8.5-10.1); CARBON DIOXIDE 29.9 mmol/L (21-32); CHLORIDE 109 mmol/L (98-107); COR CA(FOR HYPOALB) 9.2 mg/dL (8.5-10.1); CREATININE 2.63 mg/dL (0.70-1.30); SODIUM 144 mmol/L (136-145); TOTAL PROTEIN 5.9 g/dL (6.4-8.2); eGFR NON BLACK RACES 25 (>60)
[2019-10-03] MEDS ORDERED: LEXAPRO ONE (08:47)
[2019-10-03] MEDS: PEPCID TAB 20 MG PO SCH (08:59)
[2019-10-03] MEDS: PLAVIX PO SCH (08:59)
[2019-10-03] MEDS: COREG TAB 12.5 MG PO SCH ×2 (09:00→21:04)
[2019-10-03] MEDS ORDERED: PATIENT'S HOME MEDICATION (Nifedipine 90 MG) PO SCH (09:00)
[2019-10-03] MEDS: ASPIRIN EC 81 MG PO SCH (09:00)
[2019-10-03] MEDS: LEXAPRO PO SCH (09:00)
[2019-10-03] MEDS: TAB-A-VITE PO SCH (09:00)
[2019-10-03] MEDS: MILK OF MAGNESIA PO SCH ×2 (09:01→21:04)
[2019-10-03] MEDS ORDERED: PROCARDIA XL PO ONE ×2 (09:08→09:16)
[2019-10-03] MEDS: PROCARDIA XL PO SCH (09:39)
--- NOTE | 2019-10-03 12:56 | PCM.PROG ---
Progress Note Progress Note for Day of Date of Exam: 10/03/19 Subjective Subjective: Patient seen at bedside. Patient's BP elevated overnight, received IV hydralazine. BP improved this AM. Denies any complaints. Patient can be transferred to step down. Past Medical Family Social History Past Med/Fam/Surg Hx: No changes since H&P Allergies: Allergies Iodinated Contrast Media Allergy (Verified 09/01/19 09:44) ketorolac [From Toradol] Allergy (Verified 09/01/19 09:44) lisinopril Allergy (Verified 09/01/19 09:44) Review of Systems ROS: No change since H&P Vital Signs and I&O's Vital Signs: Temperature 98.6 F Pulse Rate [Left Brachial] 70 Pulse Rate 66 Respiratory Rate 21 Blood Pressure [Right Arm] 147/81 Blood Pressure 178/80 O2 Sat by Pulse Oximetry 95 Intake and Output: Intake & Output 09/30/19 10/01/19 10/02/19 10/03/19 23:59 23:59 23:59 23:59 Intake Total 1036 / 1036 1978 808 / 808 Output Total 2050 / 2050 1450 / 1450 1450 / 1450 875 / 875 Balance -1015 / -1015 529 / 529 -642 / -642 -875 / -875 Physical Exam Oriented: Unable to test Eyes: Normal Ear: Normal Nose: Normal Respiratory: Diminished Cardiovascular: Murmur and Edema; negative Tachycardia Auscultation: Bowel Sounds: Normal Tenderness: Normal Skin: Decreased Turgur Musculoskeletal: Right, Left, Knee, Back:Thoracic, Back:Lumbar and Tender Psychiatric: Normal Mood Description: Calm Speech Pattern: Clear and Appropriate Laboratory and Diagnostics Result Diagrams: 10/03/19 04:55 10/03/19 04:55 Labs: Laboratory WBC 5.8 X10^3/uL (3.6-10.0) 10/03/19 04:55 RBC 2.77 X10^6/uL (4.7-6.0) L 10/03/19 04:55 Hgb 8.4 g/dL (13.5-18.0) L 10/03/19 04:55 Hct 25.6 % (42.0-54.0) L 10/03/19 04:55 MCV 92.5 fL (80.0-100.0) 10/03/19 04:55 MCH 30.5 pg (27.0-34.0) 10/03/19 04:55 MCHC 33.0 g/dL (33.0-35.0) 10/03/19 04:55 RDW 17.6 % (11.6-16.5) H 10/03/19 04:55 Plt Count 114 X10^3/uL (150.0-450.0) L 10/03/19 04:55 Plt Count Comment Adequate (ADEQUATE) 10/01/19 04:23 MPV 8.4 fL (7.4-11.0) 10/03/19 04:55 Neut % (Auto) 77.8 % (42.0-75.0) H 10/03/19 04:55 Lymph % (Auto) 10.2 % (21.0-51.0) L 10/03/19 04:55 [place] % (Auto) 8.7 % (0.0-13.0) 10/03/19 04:55 Eos % (Auto) 2.5 % (0.9-2.9) 10/03/19 04:55 Baso % (Auto) 0.8 % (0.2-1.0) 10/03/19 04:55 Neut # (Auto) 4.5 x10^3/uL (2.2-4.8) 10/03/19 04:55 Lymph # (Auto) 0.6 X10^3/uL (1.3-2.9) L 10/03/19 04:55 [place] # (Auto) 0.5 x10^3/uL (0.3-0.8) 10/03/19 04:55 Eos # (Auto) 0.1 x10^3/uL (0.0-0.2) 10/03/19 04:55 Baso # (Auto) 0.0 X10^3/uL (0.0-0.1) 10/03/19 04:55 Absolute Nucleated RBC 0.0 /100WBC 10/03/19 04:55 Plt Morphology Comment Normal (NORMAL) 10/01/19 04:23 RBC Morphology Normal (NORMAL) 10/01/19 04:23 Sample Site Rr 09/30/19 10:06 ABG pH 7.410 (7.35-7.45) 09/30/19 10:06 ABG pCO2 47.0 mmHg (35.0-45.0) H 09/30/19 10:06 ABG pO2 103.0 mmHg (80.0-100.0) H 09/30/19 10:06 ABG HCO3 29.8 mmol/L (22-26) H 09/30/19 10:06 ABG O2 Saturation 98.0 % (90-100) 09/30/19 10:06 ABG Base Excess 4.3 mmol/L (-2.0-2.0) H 09/30/19 10:06 Mitch Test Pos 09/30/19 10:06 A-a Gradient 38.0 mmHg 09/30/19 10:06 FiO2 28.0 09/30/19 10:06 Blood Gas Comments Maria Antonia well cb 09/30/19 10:06 Sodium 144 mmol/L (136-145) 10/03/19 04:55 Corrected Sodium TNP 10/03/19 04:55 Potassium 3.9 mmol/L (3.5-5.1) 10/03/19 04:55 Chloride 109 mmol/L (98-107) H 10/03/19 04:55 Carbon Dioxide 29.9 mmol/L (21-32) 10/03/19 04:55 BUN 44 mg/dL (7-18) H 10/03/19 04:55 Creatinine 2.63 mg/dL (0.70-1.30) H 10/03/19 04:55 Est GFR (MDRD) Af Amer 30 (>60) L 10/03/19 04:55 Est GFR (MDRD) Non-Af 25 (>60) L 10/03/19 04:55 Glucose 109 mg/dL (65-99) H 10/03/19 04:55 POC Glucose (mg/dL) 119 mg/dL (65-99) H 10/03/19 11:40 Calcium 8.4 mg/dL (8.5-10.1) L 10/03/19 04:55 Corrected Calcium 9.2 mg/dL (8.5-10.1) 10/03/19 04:55 Total Bilirubin 0.30 mg/dL (0.2-1.0) 10/03/19 04:55 AST 39 Units/L (15-37) H 10/03/19 04:55 ALT 68 Units/L (12-78) 10/03/19 04:55 Alkaline Phosphatase 60 Units/L (46-116) 10/03/19 04:55 Creatine Kinase 96 Units/L (39-308) 09/29/19 13:32 CK-MB (CK-2) 2.0 ng/mL (0-4.0) 09/29/19 13:32 CK/CKMB % Calc 2.1 % (<4) 09/29/19 13:32 Troponin I 0.06 ng/mL (0-1.5) 09/29/19 13:32 B-Natriuretic Peptide 669 pg/mL (0-79) H* 09/29/19 13:32 Total Protein 5.9 g/dL (6.4-8.2) L 10/03/19 04:55 Albumin 3.0 g/dL (3.4-5.0) L 10/03/19 04:55 Globulin 2.9 g/dL (2.5-4.5) 10/03/19 04:55 Albumin/Globulin Ratio 1.0 Ratio (1.1-2.1) L 10/03/19 04:55 Specimen Type Catherized urine 09/30/19 23:55 Urine Color Straw (YELLOW) 09/30/19 23:55 Urine Appearance Clear (CLEAR) 09/30/19 23:55 Urine pH 6.0 (5.0 - 8.0) 09/30/19 23:55 Ur Specific [place] 1.010 (1.000-1.030) 09/30/19 23:55 Urine Protein 2+ (NEGATIVE) 09/30/19 23:55 Urine Glucose (UA) Negative (NEGATIVE) 09/30/19 23:55 Urine Ketones Negative (NEGATIVE) 09/30/19 23:55 Urine Occult Blood 2+ (NEGATIVE) 09/30/19 23:55 Urine Nitrite Negative (NEGATIVE) 09/30/19 23:55 Urine Bilirubin Negative (NEGATIVE) 09/30/19 23:55 Urine Urobilinogen Normal (NORMAL) 09/30/19 23:55 Ur Leukocyte Esterase Negative (NEGATIVE) 09/30/19 23:55 Urine RBC None seen /HPF (0-3) 09/30/19 23:55 Urine WBC None seen /HPF (0-5) 09/30/19 23:55 Ur Squamous Epith Cells Negative /HPF (NEGATIVE) 09/30/19 23:55 Urine Bacteria Negative /HPF (NEGATIVE) 09/30/19 23:55 Urine Mucus Few /HPF (NEGATIVE) 09/30/19 23:55 Ur Culture Indicated? No/not indicated 09/30/19 23:55 Plan (1) CHF (congestive heart failure): Status: Acute Qualifiers: Heart failure chronicity: acute on chronic Heart failure type: combined systolic and diastolic Qualified Code(s): I50.43 - Acute on chronic combined systolic (congestive) and diastolic (congestive) heart failure Plan: Continue telemetry, IV Lasix. Monitor I/Os. Net balance: 1.1L (2) Adult failure to thrive: Status: Acute (3) COPD (chronic obstructive pulmonary disease): Status: Acute Qualifiers: COPD type: chronic bronchitis Chronic bronchitis type: simple Qualified Code(s): J41.0 - Simple chronic bronchitis (4) Chronic kidney disease (CKD) stage G4/A1, severely decreased glomerular filtration rate (GFR) between 15-29 mL/min/1.73 square meter and albuminuria creatinine ratio less than 30 mg/g: Status: Acute (5) BPH (benign prostatic hyperplasia): Status: Chronic (6) Hypertension, uncontrolled: Status: Chronic Plan: resume home nifedipine, continue coreg and hydralazine PO IV hydralazine prn if > 160/90 (7) Diabetes mellitus: Status: Chronic Qualifiers: Diabetes mellitus complication status: with other specified complication Diabetes mellitus halfway insulin use: unspecified 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
[2019-10-03] MEDS: SNACK - Diabetic Appropriate PO SCH (21:02)
[2019-10-03] MEDS: COLACE CAP 100 MG PO SCH (21:03)
[2019-10-03] MEDS: PROSCAR PO SCH (21:03)
[2019-10-03] MEDS: LIPITOR TAB 40 MG PO SCH (21:03)
[2019-10-04] MEDS: XOPENEX 1.25 MG/3 ML NEBULE NEB SCH ×4 (00:14→17:29)
[2019-10-04] MEDS: APRESOLINE INJ 20 MG VIAL IVP PRN ×2 (01:20→07:36)
[2019-10-04] MEDS: APRESOLINE TAB 25 MG PO SCH ×4 (04:51→21:07)
[2019-10-04] MEDS: LASIX IVP SCH ×2 (06:24→17:30)
[2019-10-04 06:30] LABS: BASOPHILS # (AUTO) 0.1 X10^3/uL (0.0-0.1); BASOPHILS % (AUTO) 0.8 % (0.2-1.0); EOSINOPHILS # (AUTO) 0.1 x10^3/uL (0.0-0.2); EOSINOPHILS % (AUTO) 2.1 % (0.9-2.9); HEMATOCRIT 25.9 % (42.0-54.0); HEMOGLOBIN 8.5 g/dL (13.5-18.0); LYMPHOCYTES # (AUTO) 0.6 X10^3/uL (1.3-2.9); LYMPHOCYTES % (AUTO) 9.2 % (21.0-51.0); MEAN CORPUSCULAR HEMOGLOBIN 30.3 pg (27.0-34.0); MEAN CORPUSCULAR VOLUME 91.9 fL (80.0-100.0); MEAN PLATELET VOLUME 8.2 fL (7.4-11.0); MONOCYTES # (AUTO) 0.5 x10^3/uL (0.3-0.8); MONOCYTES % (AUTO) 6.9 % (0.0-13.0); NEUTROPHILS # (AUTO) 5.3 x10^3/uL (2.2-4.8); PLATELET COUNT 108 X10^3/uL (150.0-450.0); RED BLOOD COUNT 2.82 X10^6/uL (4.7-6.0); RED CELL DISTRIBUTION WIDTH 18.1 % (11.6-16.5); WHITE BLOOD COUNT 6.5 X10^3/uL (3.6-10.0)
[2019-10-04 06:47] LABS: BLOOD UREA NITROGEN 43 mg/dL (7-18); CALCIUM 8.6 mg/dL (8.5-10.1); CARBON DIOXIDE 29.5 mmol/L (21-32); CHLORIDE 109 mmol/L (98-107); CREATININE 2.49 mg/dL (0.70-1.30); SODIUM 146 mmol/L (136-145); eGFR NON BLACK RACES 26 (>60)
[2019-10-04] MEDS ORDERED: LEXAPRO ONE (08:28)
[2019-10-04] MEDS: PROCARDIA XL PO SCH (08:33)
[2019-10-04] MEDS: PEPCID TAB 20 MG PO SCH (08:34)
[2019-10-04] MEDS: COREG TAB 12.5 MG PO SCH ×2 (08:34→20:37)
[2019-10-04] MEDS: PLAVIX PO SCH (08:34)
[2019-10-04] MEDS: ASPIRIN EC 81 MG PO SCH (08:35)
[2019-10-04] MEDS: LEXAPRO PO SCH (08:35)
[2019-10-04] MEDS: TAB-A-VITE PO SCH (08:35)
[2019-10-04] MEDS: MILK OF MAGNESIA PO SCH ×2 (08:37→20:38)
[2019-10-04] MEDS: NORCO 5/325 MG TAB PO PRN ×2 (10:40→22:41)
--- NOTE | 2019-10-04 13:48 | RAD ---
HISTORYCOPD, CHFSTUDYCHEST, 1 VIEWCOMPARISONJanuary 2019.FINDINGSThe trachea is midline. 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 The lungs are clear without focal infiltrate or effusion. The bony thorax is unremarkable. Reviewing multiple prior film show no significant interval change in the interstitial process in the right lung base.IMPRESSIONChronic cardiomegaly, chronic vascular congestion chronic interstitial process in the lung bases but there has been no significant interval change the last month.. Overall there is no significant interval change from the August and September exams.Electronically signed by: ARTIE RODRIGUEZ (Oct 04, 2019 13:47:28)
--- NOTE | 2019-10-04 18:22 | PCM.PROG ---
Progress Note - Progress Note for Day of Date of Exam: 10/02/19 - Subjective Subjective: The patient is an 84-year-old black male who is a patient of our private practice and was an emergency room admission with reports of shortness of breath. The patient does have congestive heart failure as well as chronic obstructive pulmonary disease. The patient was noted to have a normal white blood cell count this morning. Since admission he has been in ICU with cardiac monitoring and strict Is and Os. He has been on respiratory therapy and supplemental oxygen. His repeat chest x-ray this morning showed cardiomegaly, vascular congestion, and interstitial edema. The patient has been on a low dose of IV Lasix two times a day due to his history of renal insufficiency. We just done 40 mg two times a day. He has normal Saline at [facility] but we will HEP lock that today and encourage oral hydration. The patients hemoglobin was at 7.8 grams and he has a history of chronic anemia and iron deficiency anemia. We have restarted his Hemocyte Plus. I believe that he got the first does yesterday. The family is unable to care for him at home due to his worsening physical health with his heart failure and chronic obstructive pulmonary disease. He is a fall risk and he is also having some vascular dementia. The family is concerned that it is getting worse and they have been referred to Case Management for residential placement. The patient has been possibly accepted at 2 different facilities in [place]. Case Management talked to the family about visiting those facilities - Past Medical Family Social History Past Med/Fam/Surg Hx: No changes since H&P Allergies: Allergies Iodinated Contrast Media Allergy (Verified 09/01/19 09:44) ketorolac [From Toradol] Allergy (Verified 09/01/19 09:44) lisinopril Allergy (Verified 09/01/19 09:44) - Review of Systems ROS: No change since H&P - Vital Signs and I&O's Vital Signs: Temperature 98.2 F Pulse Rate [Left Brachial] 70 Pulse Rate 68 Respiratory Rate 18 Blood Pressure [Right Arm] 147/81 Blood Pressure 167/75 O2 Sat by Pulse Oximetry 95 Intake and Output: Intake & Output 10/02/19 10/03/19 10/04/19 10/05/19 11:59 11:59 11:59 11:59 Intake Total 1893 / 1893 538 / 538 700 / 700 500 / 500 Output Total 1750 / 1750 1725 / 1725 1500 / 1500 725 / 725 Balance 143 / 143 -1187 / -1187 -800 / -800 -225 / -225 - Physical Exam Oriented: Unable to test Eyes: Normal Ear: Normal Nose: Normal Throat: Dry Respiratory: Diminished Cardiovascular: Murmur, Edema. negative: Tachycardia : Normal Auscultation: Bowel Sounds: Normal Tenderness: Normal Skin: Decreased Turgur Musculoskeletal: Right, Left, Knee, Back:Thoracic, Back:Lumbar, Tender Psychiatric: Normal Mood Description: Calm Affect: Anxious Speech Pattern: Clear, Appropriate - Laboratory and Diagnostics Result Diagrams: 10/04/19 05:52 10/04/19 05:52 Labs: 10/04/19 00:56 Sputum - Expectorated Sputum - Final Laboratory WBC 6.5 X10^3/uL (3.6-10.0) 10/04/19 05:52 RBC 2.82 X10^6/uL (4.7-6.0) L 10/04/19 05:52 Hgb 8.5 g/dL (13.5-18.0) L 10/04/19 05:52 Hct 25.9 % (42.0-54.0) L 10/04/19 05:52 MCV 91.9 fL (80.0-100.0) 10/04/19 05:52 MCH 30.3 pg (27.0-34.0) 10/04/19 05:52 MCHC 33.0 g/dL (33.0-35.0) 10/04/19 05:52 RDW 18.1 % (11.6-16.5) H 10/04/19 05:52 Plt Count 108 X10^3/uL (150.0-450.0) L 10/04/19 05:52 Plt Count Comment Adequate (ADEQUATE) 10/01/19 04:23 MPV 8.2 fL (7.4-11.0) 10/04/19 05:52 Neut % (Auto) 81.0 % (42.0-75.0) H 10/04/19 05:52 Lymph % (Auto) 9.2 % (21.0-51.0) L 10/04/19 05:52 [place] % (Auto) 6.9 % (0.0-13.0) 10/04/19 05:52 Eos % (Auto) 2.1 % (0.9-2.9) 10/04/19 05:52 Baso % (Auto) 0.8 % (0.2-1.0) 10/04/19 05:52 Neut # (Auto) 5.3 x10^3/uL (2.2-4.8) H 10/04/19 05:52 Lymph # (Auto) 0.6 X10^3/uL (1.3-2.9) L 10/04/19 05:52 [place] # (Auto) 0.5 x10^3/uL (0.3-0.8) 10/04/19 05:52 Eos # (Auto) 0.1 x10^3/uL (0.0-0.2) 10/04/19 05:52 Baso # (Auto) 0.1 X10^3/uL (0.0-0.1) 10/04/19 05:52 Absolute Nucleated RBC 0.0 /100WBC 10/04/19 05:52 Plt Morphology Comment Normal (NORMAL) 10/01/19 04:23 RBC Morphology Normal (NORMAL) 10/01/19 04:23 Sample Site Rr 09/30/19 10:06 ABG pH 7.410 (7.35-7.45) 09/30/19 10:06 ABG pCO2 47.0 mmHg (35.0-45.0) H 09/30/19 10:06 ABG pO2 103.0 mmHg (80.0-100.0) H 09/30/19 10:06 ABG HCO3 29.8 mmol/L (22-26) H 09/30/19 10:06 ABG O2 Saturation 98.0 % (90-100) 09/30/19 10:06 ABG Base Excess 4.3 mmol/L (-2.0-2.0) H 09/30/19 10:06 Mitch Test Pos 09/30/19 10:06 A-a Gradient 38.0 mmHg 09/30/19 10:06 FiO2 28.0 09/30/19 10:06 Blood Gas Comments Maria Antonia well cb 09/30/19 10:06 Sodium 146 mmol/L (136-145) H 10/04/19 05:52 Corrected Sodium TNP 10/04/19 05:52 Potassium 3.6 mmol/L (3.5-5.1) 10/04/19 05:52 Chloride 109 mmol/L (98-107) H 10/04/19 05:52 Carbon Dioxide 29.5 mmol/L (21-32) 10/04/19 05:52 BUN 43 mg/dL (7-18) H 10/04/19 05:52 Creatinine 2.49 mg/dL (0.70-1.30) H 10/04/19 05:52 Est GFR (MDRD) Af Amer 32 (>60) L 10/04/19 05:52 Est GFR (MDRD) Non-Af 26 (>60) L 10/04/19 05:52 Glucose 103 mg/dL (65-99) H 10/04/19 05:52 POC Glucose (mg/dL) 168 mg/dL (65-99) H 10/04/19 17:10 Calcium 8.6 mg/dL (8.5-10.1) 10/04/19 05:52 Corrected Calcium 9.2 mg/dL (8.5-10.1) 10/03/19 04:55 Total Bilirubin 0.30 mg/dL (0.2-1.0) 10/03/19 04:55 AST 39 Units/L (15-37) H 10/03/19 04:55 ALT 68 Units/L (12-78) 10/03/19 04:55 Alkaline Phosphatase 60 Units/L (46-116) 10/03/19 04:55 Creatine Kinase 96 Units/L (39-308) 09/29/19 13:32 CK-MB (CK-2) 2.0 ng/mL (0-4.0) 09/29/19 13:32 CK/CKMB % Calc 2.1 % (<4) 09/29/19 13:32 Troponin I 0.06 ng/mL (0-1.5) 09/29/19 13:32 B-Natriuretic Peptide 669 pg/mL (0-79) H* 09/29/19 13:32 Total Protein 5.9 g/dL (6.4-8.2) L 10/03/19 04:55 Albumin 3.0 g/dL (3.4-5.0) L 10/03/19 04:55 Globulin 2.9 g/dL (2.5-4.5) 10/03/19 04:55 Albumin/Globulin Ratio 1.0 Ratio (1.1-2.1) L 10/03/19 04:55 Specimen Type Catherized urine 09/30/19 23:55 Urine Color Straw (YELLOW) 09/30/19 23:55 Urine Appearance Clear (CLEAR) 09/30/19 23:55 Urine pH 6.0 (5.0 - 8.0) 09/30/19 23:55 Ur Specific [place] 1.010 (1.000-1.030) 09/30/19 23:55 Urine Protein 2+ (NEGATIVE) 09/30/19 23:55 Urine Glucose (UA) Negative (NEGATIVE) 09/30/19 23:55 Urine Ketones Negative (NEGATIVE) 09/30/19 23:55 Urine Occult Blood 2+ (NEGATIVE) 09/30/19 23:55 Urine Nitrite Negative (NEGATIVE) 09/30/19 23:55 Urine Bilirubin Negative (NEGATIVE) 09/30/19 23:55 Urine Urobilinogen Normal (NORMAL) 09/30/19 23:55 Ur Leukocyte Esterase Negative (NEGATIVE) 09/30/19 23:55 Urine RBC None seen /HPF (0-3) 09/30/19 23:55 Urine WBC None seen /HPF (0-5) 09/30/19 23:55 Ur Squamous Epith Cells Negative /HPF (NEGATIVE) 09/30/19 23:55 Urine Bacteria Negative /HPF (NEGATIVE) 09/30/19 23:55 Urine Mucus Few /HPF (NEGATIVE) 09/30/19 23:55 Ur Culture Indicated? No/not indicated 09/30/19 23:55 - Plan (1) CHF (congestive heart failure) Status: Acute Qualifiers: Heart failure type: combined systolic and diastolic Heart failure chronicity: acute on chronic Qualified Code(s): I50.43 - Acute on chronic combined systolic (congestive) and diastolic (congestive) heart failure Plan: Continue telemetry, IV Lasix. Monitor I/Os. Net balance: 1.1L (2) Adult failure to thrive Status: Acute (3) COPD (chronic obstructive pulmonary disease) Status: Acute Qualifiers: COPD type: chronic bronchitis Chronic bronchitis type: simple Qualified Code(s): J41.0 - Simple chronic bronchitis (4) Chronic kidney disease (CKD) stage G4/A1, severely decreased glomerular filtration rate (GFR) between 15-29 mL/min/1.73 square meter and albuminuria creatinine ratio less than 30 mg/g Status: Acute (5) BPH (benign prostatic hyperplasia) Status: Chronic (6) Hypertension, uncontrolled Status: Chronic Plan: resume home nifedipine, continue coreg and hydralazine PO. IV hydralazine prn if > 160/90 (7) Diabetes mellitus Status: Chronic Qualifiers: Diabetes mellitus type: type 2 Diabetes mellitus half-way insulin use: unspecified half-way insulin use status Diabetes mellitus complication status: with other specified complication Qualified Code(s): E11.69 - Type 2 diabetes mellitus with other specified complication (8) Coronary artery disease Status: Chronic (9) GERD (gastroesophageal reflux disease) Status: Chronic Qualifiers:
--- NOTE | 2019-10-04 18:25 | PCM.PROG ---
Progress Note - Progress Note for Day of Date of Exam: 10/04/19 - Subjective Subjective: The patient is an 84-year-old black male who is a patient of our private practice and was an emergency room admission with reports of shortness of breath. The patient does have congestive heart failure as well as chronic obstructive pulmonary disease. The patient was noted to have a normal white blood cell count this morning. Since admission he has been in ICU with cardiac monitoring and strict Is and Os. He has been on respiratory therapy and supplemental oxygen. His repeat chest x-ray this morning showed cardiomegaly, vascular congestion, and interstitial edema. The patient has been on a low dose of IV Lasix two times a day due to his history of renal insufficiency. We just done 40 mg two times a day. He has normal Saline at [facility] but we will HEP lock that today and encourage oral hydration. The patient has a history of chronic anemia and iron deficiency anemia. We have restarted his Hemocyte Plus. I believe that he got the first does yesterday. The family is unable to care for him at home due to his worsening physical health with his heart failure and chronic obstructive pulmonary disease. He is a fall risk and he is also having some vascular dementia. The family is concerned that it is getting worse and they have been referred to Case Management for prison placement. The patient has been possibly accepted at 2 different facilities in [place]. Case Management talked to the family about visiting those facilities.Patient's BP elevated overnight, received IV hydralazine. Denies any complaints. Patient can be transferred to step down. - Past Medical Family Social History Past Med/Fam/Surg Hx: No changes since H&P Allergies: Allergies Iodinated Contrast Media Allergy (Verified 09/01/19 09:44) ketorolac [From Toradol] Allergy (Verified 09/01/19 09:44) lisinopril Allergy (Verified 09/01/19 09:44) - Review of Systems ROS: No change since H&P - Vital Signs and I&O's Vital Signs: Temperature 98.2 F Pulse Rate [Left Brachial] 70 Pulse Rate 68 Respiratory Rate 18 Blood Pressure [Right Arm] 147/81 Blood Pressure 167/75 O2 Sat by Pulse Oximetry 95 Intake and Output: Intake & Output 10/02/19 10/03/19 10/04/19 10/05/19 11:59 11:59 11:59 11:59 Intake Total 1893 / 1893 538 / 538 700 / 700 500 / 500 Output Total 1750 / 1750 1725 / 1725 1500 / 1500 725 / 725 Balance 143 / 143 -1187 / -1187 -800 / -800 -225 / -225 - Physical Exam Oriented: Unable to test Eyes: Normal Ear: Normal Nose: Normal Throat: Dry Respiratory: Diminished Cardiovascular: Murmur, Edema. negative: Tachycardia : Normal Auscultation: Bowel Sounds: Normal Tenderness: Normal Skin: Decreased Turgur Musculoskeletal: Right, Left, Knee, Back:Thoracic, Back:Lumbar, Tender Psychiatric: Normal Mood Description: Calm Affect: Anxious Speech Pattern: Clear, Appropriate - Laboratory and Diagnostics Result Diagrams: 10/04/19 05:52 10/04/19 05:52 Labs: 10/04/19 00:56 Sputum - Expectorated Sputum - Final Laboratory WBC 6.5 X10^3/uL (3.6-10.0) 10/04/19 05:52 RBC 2.82 X10^6/uL (4.7-6.0) L 10/04/19 05:52 Hgb 8.5 g/dL (13.5-18.0) L 10/04/19 05:52 Hct 25.9 % (42.0-54.0) L 10/04/19 05:52 MCV 91.9 fL (80.0-100.0) 10/04/19 05:52 MCH 30.3 pg (27.0-34.0) 10/04/19 05:52 MCHC 33.0 g/dL (33.0-35.0) 10/04/19 05:52 RDW 18.1 % (11.6-16.5) H 10/04/19 05:52 Plt Count 108 X10^3/uL (150.0-450.0) L 10/04/19 05:52 Plt Count Comment Adequate (ADEQUATE) 10/01/19 04:23 MPV 8.2 fL (7.4-11.0) 10/04/19 05:52 Neut % (Auto) 81.0 % (42.0-75.0) H 10/04/19 05:52 Lymph % (Auto) 9.2 % (21.0-51.0) L 10/04/19 05:52 [place] % (Auto) 6.9 % (0.0-13.0) 10/04/19 05:52 Eos % (Auto) 2.1 % (0.9-2.9) 10/04/19 05:52 Baso % (Auto) 0.8 % (0.2-1.0) 10/04/19 05:52 Neut # (Auto) 5.3 x10^3/uL (2.2-4.8) H 10/04/19 05:52 Lymph # (Auto) 0.6 X10^3/uL (1.3-2.9) L 10/04/19 05:52 [place] # (Auto) 0.5 x10^3/uL (0.3-0.8) 10/04/19 05:52 Eos # (Auto) 0.1 x10^3/uL (0.0-0.2) 10/04/19 05:52 Baso # (Auto) 0.1 X10^3/uL (0.0-0.1) 10/04/19 05:52 Absolute Nucleated RBC 0.0 /100WBC 10/04/19 05:52 Plt Morphology Comment Normal (NORMAL) 10/01/19 04:23 RBC Morphology Normal (NORMAL) 10/01/19 04:23 Sample Site Rr 09/30/19 10:06 ABG pH 7.410 (7.35-7.45) 09/30/19 10:06 ABG pCO2 47.0 mmHg (35.0-45.0) H 09/30/19 10:06 ABG pO2 103.0 mmHg (80.0-100.0) H 09/30/19 10:06 ABG HCO3 29.8 mmol/L (22-26) H 09/30/19 10:06 ABG O2 Saturation 98.0 % (90-100) 09/30/19 10:06 ABG Base Excess 4.3 mmol/L (-2.0-2.0) H 09/30/19 10:06 Mitch Test Pos 09/30/19 10:06 A-a Gradient 38.0 mmHg 09/30/19 10:06 FiO2 28.0 09/30/19 10:06 Blood Gas Comments Maria Antonia well cb 09/30/19 10:06 Sodium 146 mmol/L (136-145) H 10/04/19 05:52 Corrected Sodium TNP 10/04/19 05:52 Potassium 3.6 mmol/L (3.5-5.1) 10/04/19 05:52 Chloride 109 mmol/L (98-107) H 10/04/19 05:52 Carbon Dioxide 29.5 mmol/L (21-32) 10/04/19 05:52 BUN 43 mg/dL (7-18) H 10/04/19 05:52 Creatinine 2.49 mg/dL (0.70-1.30) H 10/04/19 05:52 Est GFR (MDRD) Af Amer 32 (>60) L 10/04/19 05:52 Est GFR (MDRD) Non-Af 26 (>60) L 10/04/19 05:52 Glucose 103 mg/dL (65-99) H 10/04/19 05:52 POC Glucose (mg/dL) 168 mg/dL (65-99) H 10/04/19 17:10 Calcium 8.6 mg/dL (8.5-10.1) 10/04/19 05:52 Corrected Calcium 9.2 mg/dL (8.5-10.1) 10/03/19 04:55 Total Bilirubin 0.30 mg/dL (0.2-1.0) 10/03/19 04:55 AST 39 Units/L (15-37) H 10/03/19 04:55 ALT 68 Units/L (12-78) 10/03/19 04:55 Alkaline Phosphatase 60 Units/L (46-116) 10/03/19 04:55 Creatine Kinase 96 Units/L (39-308) 09/29/19 13:32 CK-MB (CK-2) 2.0 ng/mL (0-4.0) 09/29/19 13:32 CK/CKMB % Calc 2.1 % (<4) 09/29/19 13:32 Troponin I 0.06 ng/mL (0-1.5) 09/29/19 13:32 B-Natriuretic Peptide 669 pg/mL (0-79) H* 09/29/19 13:32 Total Protein 5.9 g/dL (6.4-8.2) L 10/03/19 04:55 Albumin 3.0 g/dL (3.4-5.0) L 10/03/19 04:55 Globulin 2.9 g/dL (2.5-4.5) 10/03/19 04:55 Albumin/Globulin Ratio 1.0 Ratio (1.1-2.1) L 10/03/19 04:55 Specimen Type Catherized urine 09/30/19 23:55 Urine Color Straw (YELLOW) 09/30/19 23:55 Urine Appearance Clear (CLEAR) 09/30/19 23:55 Urine pH 6.0 (5.0 - 8.0) 09/30/19 23:55 Ur Specific [place] 1.010 (1.000-1.030) 09/30/19 23:55 Urine Protein 2+ (NEGATIVE) 09/30/19 23:55 Urine Glucose (UA) Negative (NEGATIVE) 09/30/19 23:55 Urine Ketones Negative (NEGATIVE) 09/30/19 23:55 Urine Occult Blood 2+ (NEGATIVE) 09/30/19 23:55 Urine Nitrite Negative (NEGATIVE) 09/30/19 23:55 Urine Bilirubin Negative (NEGATIVE) 09/30/19 23:55 Urine Urobilinogen Normal (NORMAL) 09/30/19 23:55 Ur Leukocyte Esterase Negative (NEGATIVE) 09/30/19 23:55 Urine RBC None seen /HPF (0-3) 09/30/19 23:55 Urine WBC None seen /HPF (0-5) 09/30/19 23:55 Ur Squamous Epith Cells Negative /HPF (NEGATIVE) 09/30/19 23:55 Urine Bacteria Negative /HPF (NEGATIVE) 09/30/19 23:55 Urine Mucus Few /HPF (NEGATIVE) 09/30/19 23:55 Ur Culture Indicated? No/not indicated 09/30/19 23:55 - Plan (1) CHF (congestive heart failure) Status: Acute Qualifiers: Heart failure type: combined systolic and diastolic Heart failure chronicity: acute on chronic Qualified Code(s): I50.43 - Acute on chronic combined systolic (congestive) and diastolic (congestive) heart failure Plan: Continue telemetry, IV Lasix. Monitor I/Os. Net balance: 1.1L (2) Adult failure to thrive Status: Acute (3) COPD (chronic obstructive pulmonary disease) Status: Acute Qualifiers: COPD type: chronic bronchitis Chronic bronchitis type: simple Qualified Code(s): J41.0 - Simple chronic bronchitis (4) Chronic kidney disease (CKD) stage G4/A1, severely decreased glomerular filtration rate (GFR) between 15-29 mL/min/1.73 square meter and albuminuria creatinine ratio less than 30 mg/g Status: Acute (5) BPH (benign prostatic hyperplasia) Status: Chronic (6) Hypertension, uncontrolled Status: Chronic Plan: resume home nifedipine, continue coreg and hydralazine PO. IV hydralazine prn if > 160/90 (7) Diabetes mellitus Status: Chronic Qualifiers: Diabetes mellitus type: type 2 Diabetes mellitus shelter insulin use: unspecified shelter insulin use status Diabetes mellitus complication status: with other specified complication Qualified Code(s): E11.69 - Type 2 diabetes mellitus with other specified complication (8) Coronary artery disease Status: Chronic (9) GERD (gastroesophageal reflux disease) Status: Chronic Qualifiers:
[2019-10-04] MEDS: LIPITOR TAB 40 MG PO SCH (20:37)
[2019-10-04] MEDS: SNACK - Diabetic Appropriate PO SCH (20:37)
[2019-10-04] MEDS: COLACE CAP 100 MG PO SCH (20:37)
[2019-10-04] MEDS: PROSCAR PO SCH (20:38)
[2019-10-05] MEDS: XOPENEX 1.25 MG/3 ML NEBULE NEB SCH ×3 (00:30→12:35)
[2019-10-05] MEDS: APRESOLINE INJ 20 MG VIAL IVP PRN ×2 (04:20→11:18)
[2019-10-05 05:46] LABS: BASOPHILS % (AUTO) 0.7 % (0.2-1.0); EOSINOPHILS # (AUTO) 0.1 x10^3/uL (0.0-0.2); EOSINOPHILS % (AUTO) 2.3 % (0.9-2.9); HEMATOCRIT 24.3 % (42.0-54.0); HEMOGLOBIN 8.2 g/dL (13.5-18.0); LYMPHOCYTES # (AUTO) 0.6 X10^3/uL (1.3-2.9); LYMPHOCYTES % (AUTO) 9.8 % (21.0-51.0); MEAN CORPUSCULAR HEMOGLOBIN 31.1 pg (27.0-34.0); MEAN CORPUSCULAR HGB CONC 33.7 g/dL (33.0-35.0); MEAN CORPUSCULAR VOLUME 92.4 fL (80.0-100.0); MONOCYTES # (AUTO) 0.4 x10^3/uL (0.3-0.8); MONOCYTES % (AUTO) 7.1 % (0.0-13.0); NEUTROPHILS # (AUTO) 4.9 x10^3/uL (2.2-4.8); NEUTROPHILS % (AUTO) 80.1 % (42.0-75.0); PLATELET COUNT 102 X10^3/uL (150.0-450.0); RED BLOOD COUNT 2.63 X10^6/uL (4.7-6.0); RED CELL DISTRIBUTION WIDTH 18.2 % (11.6-16.5); WHITE BLOOD COUNT 6.2 X10^3/uL (3.6-10.0)
[2019-10-05 05:53] LABS: BLOOD UREA NITROGEN 40 mg/dL (7-18); CALCIUM 8.5 mg/dL (8.5-10.1); CARBON DIOXIDE 30.8 mmol/L (21-32); CHLORIDE 109 mmol/L (98-107); CREATININE 2.37 mg/dL (0.70-1.30); SODIUM 146 mmol/L (136-145); eGFR NON BLACK RACES 28 (>60)
[2019-10-05] MEDS: LASIX IVP SCH (06:01)
[2019-10-05] MEDS: APRESOLINE TAB 25 MG PO SCH ×2 (06:01→13:09)
[2019-10-05] MEDS ORDERED: LEXAPRO ONE (08:33)
[2019-10-05] MEDS: COREG TAB 12.5 MG PO SCH (08:49)
[2019-10-05] MEDS: PEPCID TAB 20 MG PO SCH (08:49)
[2019-10-05] MEDS: ASPIRIN EC 81 MG PO SCH (08:49)
[2019-10-05] MEDS: LEXAPRO PO SCH (08:50)
[2019-10-05] MEDS: TAB-A-VITE PO SCH (08:50)
[2019-10-05] MEDS: PLAVIX PO SCH (08:50)
[2019-10-05] MEDS: PROCARDIA XL PO SCH (08:51)
[2019-10-05] MEDS: MILK OF MAGNESIA PO SCH (08:53)
[2019-10-05] MEDS ORDERED: APRESOLINE TAB 25 MG ONE (13:28)
[2019-10-05] MEDS ORDERED: APRESOLINE TAB 25 MG PO SCH (14:00)
[2019-10-05 17:06] VITALS: BP 156/67
== END 2019-10-05 17:40 | DRG 292 ==
LOC: ICU 12:22 → ER 12:22 → ICU 15:21
PROVIDERS: ADMIT Internal Medicine; ATTEND Internal Medicine
DX: R53.1 Weakness; R26.89 Other abnormalities of gait and mobility; I13.0 Hypertensive heart and chronic kidney disease with heart failure and stage 1 through stage 4 chronic kidney disease, or unspecified chronic kidney disease; N40.0 Benign prostatic hyperplasia without lower urinary tract symptoms; D50.8 Other iron deficiency anemias; R94.31 Abnormal electrocardiogram [ECG] [EKG]; Z99.81 Dependence on supplemental oxygen; J44.0 Chronic obstructive pulmonary disease with (acute) lower respiratory infection; I50.43 Acute on chronic combined systolic (congestive) and diastolic (congestive) heart failure; R62.7 Adult failure to thrive; I25.10 Atherosclerotic heart disease of native coronary artery without angina pectoris; E11.65 Type 2 diabetes mellitus with hyperglycemia; N18.4 Chronic kidney disease, stage 4 (severe); K21.9 Gastro-esophageal reflux disease without esophagitis
CPT/HCPCS: 36415; 36600; 71010; 71020; 71045; 71046; 80048; 80053; 81001; 82550; 82553; 82803; 83880; 84132; 84484; 85025; 87070; 87205; 93005; 94640; 96365; 96374; 96375; 97110; 97162; 97166; 97530; 97535; 99284; A4216; A4222; G0378; J0360; J1815; J1940; J3490; J7030; S0138

== ENCOUNTER 2019-11-15 12:34 | Inpatient (IN) ==
[2019-11-15] MEDS ORDERED: NS 500 ML IV 500 ML IV ONE (13:43)
[2019-11-15] MEDS ORDERED: BENADRYL INJ 50 MG VIAL IVP PRN (13:43)
[2019-11-15] MEDS ORDERED: TYLENOL 325 MG TAB PO PRN (13:43)
--- NOTE | 2019-11-15 14:48 | RAD ---
HISTORYSOB, CHF, CADSTUDYPortable AP chestCOMPARISONFebruary 2019FINDINGSThere is unchanged moderate cardiomegaly status post CABG. The lungs are hyperinflated and grossly clear. There is no edema or effusion or congestion. The descending thoracic aorta is tortuous.IMPRESSIONCOPD and cardiomegaly, no definite acute disease.Electronically signed by: CHELSEA DALE (Nov 15, 2019 14:47:18)
[2019-11-15 15:02] LABS: ABG BASE EXCESS 2.1 mmol/L (-2.0-2.0); ABG HCO3 25.3 mmol/L (22-26)
[2019-11-15 15:04] VITALS: BMI 23.7
[2019-11-15 16:07] LABS: BASOPHILS % (AUTO) 0.8 % (0.2-1.0); EOSINOPHILS # (AUTO) 0.1 x10^3/uL (0.0-0.2); EOSINOPHILS % (AUTO) 2.4 % (0.9-2.9); LYMPHOCYTES # (AUTO) 0.6 X10^3/uL (1.3-2.9); LYMPHOCYTES % (AUTO) 14.4 % (21.0-51.0); MEAN CORPUSCULAR HEMOGLOBIN 31.5 pg (27.0-34.0); MEAN CORPUSCULAR HGB CONC 33.1 g/dL (33.0-35.0); MEAN PLATELET VOLUME 7.6 fL (7.4-11.0); MONOCYTES # (AUTO) 0.4 x10^3/uL (0.3-0.8); MONOCYTES % (AUTO) 9.1 % (0.0-13.0); NEUTROPHILS # (AUTO) 2.9 x10^3/uL (2.2-4.8); NEUTROPHILS % (AUTO) 73.3 % (42.0-75.0); PLATELET COUNT 130 X10^3/uL (150.0-450.0); RED BLOOD COUNT 1.92 X10^6/uL (4.7-6.0); RED CELL DISTRIBUTION WIDTH 18.8 % (11.6-16.5); WHITE BLOOD COUNT 3.9 X10^3/uL (3.6-10.0)
[2019-11-15 16:12] LABS: HEMATOCRIT 18.2 % (42.0-54.0)
[2019-11-15 16:18] LABS: ALBUMIN 2.9 g/dL (3.4-5.0); CALCIUM 8.5 mg/dL (8.5-10.1); CARBON DIOXIDE 28.5 mmol/L (21-32); COR CA(FOR HYPOALB) 9.4 mg/dL (8.5-10.1); CREATININE 3.17 mg/dL (0.70-1.30); TOTAL PROTEIN 5.8 g/dL (6.4-8.2)
--- NOTE | 2019-11-15 17:05 | DR.H&P ---
H&P - History & Physical for Day of: H&P Date: 11/15/19 - Chief Complaint Chief Complaint: WEAKNESS, WILLIS - History of Present Illness History of Present Illness: PT IS 84 BM DIRECT ADMIT FROM DR MA OFFICE WITH CO SYMPTOMATIC ANEMIA. PT CO INCREASED SOB WITH DIZZINESS. DENIES ANY N/V/D, OR BLOOD IN STOOL.PT HGB 6.8 ON 11/11. PT HAS PMH OF CRF, CAD, CHF, OA, HTN, BPH, DM, COPD. PT WAS RECENTLY DC HOME FROM [facility] IN [place] FOR THERAPY FOLLOWING EXTENDED ILLNESS. PT ADMITTED FOR TREATMENT AND EVALUATION FOR ACUTE ILLNESS - Past Medical History Past Medical History: Coronary Artery Disease, Hypertension, Diabetes, Renal Disease, Anxiety, COPD, Arthritis, CHF Additional Medical History: Prostate Cancer, Bronchitis, Constipation, chronic anemia - Past Surgical History Surgical History: CABG/Valve Surgery - Family History Family Medical History: Diabetes Mellitus, Coronary Artery Disease, Heart Failure, Hypertension - Social History Does patient currently use any type of tobacco product: No Have you used tobacco products in the last 12 months: No Type of Tobacco Use: None Alcohol Use: None Drug Use: None - Medications Home Medications: Iodinated Contrast Media Allergy (Verified 09/01/19 09:44) ketorolac [From Toradol] Allergy (Verified 09/01/19 09:44) lisinopril Allergy (Verified 09/01/19 09:44) - Review of Systems Constitutional: Weakness Eyes: No Symptoms Reported ENT: No Symptoms Reported Respiratory: Shortness of Breath Cardiovascular: denies: Edema Gastrointestinal: denies: Melena Genitourinary: No Symptoms Reported Musculoskeletal: Back Pain, Leg Pain Skin: No Symptoms Reported Neurological: Weakness, Other (DIZZINESS) - Physical Exam Vital Signs: Temperature 98.7 F Pulse Rate [Radial] 70 Respiratory Rate 20 Blood Pressure [Right Arm] 147/81 Blood Pressure [Left Arm] 141/66 Blood Pressure 156/67 O2 Sat by Pulse Oximetry 97 Oriented: Normal Eyes: Normal Ear: Normal Nose: Normal Throat: Normal Respiratory: RLL Diminished, LLL Diminished Cardiovascular: Normal, Murmur : Normal Auscultation: Bowel Sounds: Normal Palpation: Normal Tenderness: Normal Skin: Decreased Turgur Musculoskeletal: Right, Left, Knee, Back:Lumbar Psychiatric: Anxiety Affect: Anxious Speech Pattern: Clear, Appropriate - Assessment/Plan (1) Anemia Qualifiers: Anemia type: iron deficiency Status: Chronic Plan: ADMIT, TYPE AND SCREEN. ADMISSION LABS CBC CMP UA. CXR ON ADMISSION EKG, CONTINOUS TELEMETRY. VERIFY HOME MEDICATIONS (2) SOB (shortness of breath) Status: Acute (3) CHF (congestive heart failure) Qualifiers: Heart failure type: combined systolic and diastolic Heart failure chronicity: acute on chronic Qualified Code(s): I50.43 - Acute on chronic combined systolic (congestive) and diastolic (congestive) heart failure Status: Acute (4) Chronic kidney disease (CKD) stage G4/A1, severely decreased glomerular filtration rate (GFR) between 15-29 mL/min/1.73 square meter and albuminuria creatinine ratio less than 30 mg/g Status: Acute (5) COPD (chronic obstructive pulmonary disease) with acute bronchitis Status: Chronic (6) Coronary artery disease Status: Chronic (7) Diabetes mellitus Qualifiers: Diabetes mellitus type: type 2 Diabetes mellitus care home insulin use: unspecified care home insulin use status Diabetes mellitus complication status: with other specified complication Qualified Code(s): E11.69 - Type 2 diabetes mellitus with other specified complication Status: Chronic - Allergies Allergies/Adverse Reactions: Allergies Allergy/AdvReac Type Severity Reaction Status Date / Time Iodinated Contrast Media Allergy Verified 09/01/19 09:44 ketorolac [From Toradol] Allergy Verified 09/01/19 09:44 lisinopril Allergy Verified 09/01/19 09:44
[2019-11-15] MEDS: NS 1000 ML 1,000 ML IV SCH ×2 (18:39→20:43)
[2019-11-15] MEDS: LIPITOR TAB 40 MG PO SCH (20:42)
[2019-11-15] MEDS: COREG TAB 12.5 MG PO SCH (20:42)
[2019-11-15] MEDS: PROSCAR PO SCH (20:43)
[2019-11-15 21:42] LABS: HEMATOCRIT 19.4 % (42.0-54.0); HEMOGLOBIN 6.6 g/dL (13.5-18.0)
[2019-11-16 05:35] LABS: EOSINOPHILS # (AUTO) 0.2 x10^3/uL (0.0-0.2); LYMPHOCYTES # (AUTO) 0.8 X10^3/uL (1.3-2.9); MEAN CORPUSCULAR VOLUME 93.3 fL (80.0-100.0); MONOCYTES # (AUTO) 0.3 x10^3/uL (0.3-0.8); NEUTROPHILS % (AUTO) 70.3 % (42.0-75.0)
[2019-11-16 05:44] LABS: BASOPHILS % (AUTO) 0.7 % (0.2-1.0); EOSINOPHILS % (AUTO) 4.6 % (0.9-2.9); LYMPHOCYTES % (AUTO) 17.6 % (21.0-51.0); MEAN CORPUSCULAR HEMOGLOBIN 31.3 pg (27.0-34.0); MEAN CORPUSCULAR HGB CONC 33.5 g/dL (33.0-35.0); MONOCYTES % (AUTO) 6.8 % (0.0-13.0); NEUTROPHILS # (AUTO) 3.2 x10^3/uL (2.2-4.8); PLATELET COUNT 126 X10^3/uL (150.0-450.0); RED BLOOD COUNT 2.07 X10^6/uL (4.7-6.0); RED CELL DISTRIBUTION WIDTH 18.4 % (11.6-16.5); WHITE BLOOD COUNT 4.5 X10^3/uL (3.6-10.0)
[2019-11-16 05:49] LABS: ALANINE AMINOTRANSFERASE 48 Units/L (12-78); ALBUMIN 2.7 g/dL (3.4-5.0); ALKALINE PHOSPHATASE 31 Units/L (46-116); ASPARTATE AMINO TRANSFERASE 27 Units/L (15-37); BLOOD UREA NITROGEN 41 mg/dL (7-18); CALCIUM 8.2 mg/dL (8.5-10.1); CARBON DIOXIDE 26.8 mmol/L (21-32); CHLORIDE 110 mmol/L (98-107); COR CA(FOR HYPOALB) 9.2 mg/dL (8.5-10.1); CREATININE 2.94 mg/dL (0.70-1.30); SODIUM 143 mmol/L (136-145); TOTAL PROTEIN 5.4 g/dL (6.4-8.2); eGFR NON BLACK RACES 22 (>60)
[2019-11-16 05:59] LABS: HEMOGLOBIN 6.5 g/dL (13.5-18.0)
[2019-11-16 06:00] LABS: HEMATOCRIT 19.3 % (42.0-54.0)
[2019-11-16] MEDS ORDERED: INFeD or DEXFERRUM 975 MG in NS 500 ML IV 500 ML IV ONE (09:00)
[2019-11-16] MEDS ORDERED: INFeD or DEXFERRUM 25 MG in NS 100 ML IV 100 ML IV NR (09:00)
[2019-11-16 09:18] LABS: BASOPHILS % (AUTO) 0.8 % (0.2-1.0); EOSINOPHILS # (AUTO) 0.2 x10^3/uL (0.0-0.2); EOSINOPHILS % (AUTO) 4.6 % (0.9-2.9); HEMATOCRIT 20.6 % (42.0-54.0); LYMPHOCYTES # (AUTO) 0.6 X10^3/uL (1.3-2.9); LYMPHOCYTES % (AUTO) 10.9 % (21.0-51.0); MEAN CORPUSCULAR HEMOGLOBIN 31.5 pg (27.0-34.0); MEAN CORPUSCULAR HGB CONC 33.6 g/dL (33.0-35.0); MEAN CORPUSCULAR VOLUME 93.7 fL (80.0-100.0); MEAN PLATELET VOLUME 7.8 fL (7.4-11.0); MONOCYTES # (AUTO) 0.4 x10^3/uL (0.3-0.8); MONOCYTES % (AUTO) 6.7 % (0.0-13.0); PLATELET COUNT 129 X10^3/uL (150.0-450.0); WHITE BLOOD COUNT 5.3 X10^3/uL (3.6-10.0)
[2019-11-16 09:29] LABS: HEMOGLOBIN 6.9 g/dL (13.5-18.0)
[2019-11-16] MEDS ORDERED: LEXAPRO ONE (09:37)
[2019-11-16] MEDS: COREG TAB 12.5 MG PO SCH ×2 (09:39→20:47)
[2019-11-16] MEDS: LEXAPRO PO SCH (09:39)
[2019-11-16] MEDS: HEMOCYTE-PLUS PO SCH (09:39)
[2019-11-16] MEDS ORDERED: NS 250 ML IV 250 ML IV ONE (12:10)
[2019-11-16] MEDS: DUONEB 0.5 MG/3 MG (3 mL) NEB PRN ×2 (14:47→19:18)
[2019-11-16 18:07] LABS: HEMATOCRIT 22.1 % (42.0-54.0); HEMOGLOBIN 7.5 g/dL (13.5-18.0)
[2019-11-16] MEDS ORDERED: LASIX IVP ONE (19:23)
[2019-11-16] MEDS ORDERED: ANTIVERT TAB 25 MG PO PRN (19:37)
[2019-11-16] MEDS: PROTONIX INJ 40 MG VIAL IVP SCH (20:47)
[2019-11-16] MEDS: PROSCAR PO SCH (20:47)
[2019-11-16] MEDS: LIPITOR TAB 40 MG PO SCH (20:47)
[2019-11-16] MEDS: APRESOLINE TAB 25 MG PO SCH (21:00)
[2019-11-17] MEDS: DUONEB 0.5 MG/3 MG (3 mL) NEB PRN ×3 (04:40→12:05)
[2019-11-17 05:15] LABS: BASOPHILS # (AUTO) 0.1 X10^3/uL (0.0-0.1); BASOPHILS % (AUTO) 0.9 % (0.2-1.0); EOSINOPHILS # (AUTO) 0.2 x10^3/uL (0.0-0.2); EOSINOPHILS % (AUTO) 3.8 % (0.9-2.9); HEMOGLOBIN 8.5 g/dL (13.5-18.0); LYMPHOCYTES # (AUTO) 0.6 X10^3/uL (1.3-2.9); LYMPHOCYTES % (AUTO) 11.2 % (21.0-51.0); MEAN CORPUSCULAR HEMOGLOBIN 31.2 pg (27.0-34.0); MEAN PLATELET VOLUME 7.8 fL (7.4-11.0); MONOCYTES # (AUTO) 0.4 x10^3/uL (0.3-0.8); MONOCYTES % (AUTO) 6.7 % (0.0-13.0); NEUTROPHILS # (AUTO) 4.5 x10^3/uL (2.2-4.8); NEUTROPHILS % (AUTO) 77.4 % (42.0-75.0); PLATELET COUNT 136 X10^3/uL (150.0-450.0); RED BLOOD COUNT 2.72 X10^6/uL (4.7-6.0); RED CELL DISTRIBUTION WIDTH 18.9 % (11.6-16.5); WHITE BLOOD COUNT 5.8 X10^3/uL (3.6-10.0)
[2019-11-17] MEDS: APRESOLINE TAB 25 MG PO SCH (05:21)
[2019-11-17 05:29] LABS: CALCIUM 8.4 mg/dL (8.5-10.1); CARBON DIOXIDE 25.3 mmol/L (21-32); COR CA(FOR HYPOALB) 9.2 mg/dL (8.5-10.1); CREATININE 2.87 mg/dL (0.70-1.30)
[2019-11-17] MEDS ORDERED: LEXAPRO ONE (08:55)
[2019-11-17] MEDS ORDERED: PLAVIX PO SCH (09:00)
[2019-11-17] MEDS ORDERED: ASPIRIN EC 81 MG PO SCH (09:00)
[2019-11-17] MEDS ORDERED: MICRO K EXTEN CAP 10 MEQ PO SCH (09:00)
[2019-11-17] MEDS ORDERED: CATAPRES-TTS-2 TD SCH (09:00)
[2019-11-17] MEDS ORDERED: PROCARDIA XL PO SCH (09:00)
[2019-11-17] MEDS ORDERED: PEPCID TAB 20 MG PO SCH (09:00)
[2019-11-17] MEDS ORDERED: FLOMAX PO SCH (09:00)
[2019-11-17] MEDS ORDERED: LASIX PO SCH (09:00)
[2019-11-17] MEDS: PROTONIX INJ 40 MG VIAL IVP SCH (09:49)
[2019-11-17] MEDS: COREG TAB 12.5 MG PO SCH (09:49)
[2019-11-17] MEDS: LEXAPRO PO SCH (09:50)
[2019-11-17] MEDS: HEMOCYTE-PLUS PO SCH (09:51)
[2019-11-17 12:37] VITALS: BP 164/72
[2019-11-17] MEDS ORDERED: ZAROXOLYN PO SCH (19:37)
== END 2019-11-17 14:35 | disposition home health service (06) | DRG 812 ==
LOC: MED/SURG 14:08
PROVIDERS: ADMIT Internal Medicine; ATTEND Internal Medicine
CPT/HCPCS: 36415; 36430; 36600; 71010; 71045; 80053; 82270; 82607; 82728; 82746; 82803; 83540; 84466; 85014; 85018; 85025; 86850; 86900; 86901; 86922; 93005; 94640; 94760; 97162; A4222; C9113; J1200; J1750; J1940; J3490; J7030; J7040; J7050; J7620; P9016; S0138

== ENCOUNTER 2019-12-21 07:42 | Inpatient (IN) ==
[2019-12-21] MEDS ORDERED: NITROSTAT SL PRN (07:53)
--- NOTE | 2019-12-21 07:54 | DR.SOBA ---
HPI - Time Seen Time seen: 07:55 - HPI Comment HPI Comment: Patient with Dyspnea this am. He has a History of COPD and pneumonia 2-3 weeks ago requiring hospitalization in [place]. EMS states patient was wheezing and o2 sats 85% at house. O2 sats 95% on arrival to ER on [facility]. - COVID-19 Coronavirus risk:travel/contact w/high risk person: No Has patient experienced Coronavirus symptoms: No Coronavirus symptoms experienced: Shortness of Breath - Source History Provided: Patient - Mode of Arrival Mode of Arrival: Stretcher - Duration Duration: Hours - Context Onset:: At Rest History of:: COPD, CHF Currently on:: Inhaled Bronchodilators Prehospital Care:: O2, Inhaled B2 - Modifying Factors Improves:: Other (nebulizer) - Associated Signs and Symptoms Associated Signs and Symptoms: Wheeze. denies: Chest Pain - If Cough Cough: None PMH - PMH Past Medical History: Coronary Artery Disease, Hypertension, Diabetes, Renal Disease, Anxiety, COPD, Arthritis, CHF Past Surgical History: Yes Surgical History: CABG/Valve Surgery - Family History Family Medical History: Diabetes Mellitus, Coronary Artery Disease, Heart Failure, Hypertension - Social History Do you use any recreational Drugs:: No Lives Where: Home - Travel Risk Coronavirus risk:travel/contact w/high risk person: No Has patient experienced Coronavirus symptoms: No ROS - Review of Systems Constitutional: No Symptoms Reported Eyes: No Symptoms Reported ENTM: No Symptoms Reported Respiratoy: Wheezing Cardiovascular: No Symptoms Reported Gastrointestinal/Abdominal: No Symptoms Reported Genitourinary: No Symptoms Reported Neurological: No Symptoms Reported Musculoskeletal: No Symptoms Reported Integumentary: No Symptoms Reported Hematologic/Lymphatic: No Symptoms Reported Endocrine: No Symptoms Reported Psychiatric: Depression PE - General Limitations: No Limitations General Appearance: Alert, In No Apparent Distress - Head Head Exam: Normal Inspection - Eyes Eye exam: Normal Appearance, EOMI - ENT ENT Exam: Normal Exam, Normal Oropharynx - Neck Neck Exam: Normal Inspection, Full ROM - Chest Chest Inspection: Normal Inspection - Respiratory Respiratory Exam: Bilateral Wheezing (mild), Bilateral Decreased Breath Sounds - Cardiovascular Cardiovascular Exam: Regular Rate - Abdominal Exam Abdominal Exam: Normal Inspection, Normal Bowel Sounds, Soft. negative: Distention, Tenderness - Extremities Extremities Exam: Normal Inspection, Full ROM, Edema - Back Back Exam: Normal Inspection - Neurologic Neurological Exam: Alert, Oriented X3, CN II-XII Intact - Psychiatric Psychiatric Exam: Normal Affect - Skin Skin Exam: Intact, Normal Color - Vital Signs Vitals: Temperature 98.9 F Pulse Rate 61 Respiratory Rate 25 Blood Pressure [Right Arm] 164/72 Blood Pressure 226/97 O2 Sat by Pulse Oximetry 91 Course - Treatment Treatment: 926: case discussed with DR. Tran, admit to treat BP and CHF ROR - Labs Reviewed Result Diagrams: 12/21/19 08:05 12/21/19 08:05 - XRAY XRAY Interpreted by: Radiologist - EKG Rate: 75 [place]: LAD Rhythm: PVCs Block: RBBB, IVCD Hypertrophy: None ST: Nonsp - Labs Reviewed Laboratory: WBC 5.4 X10^3/uL (3.6-10.0) 12/21/19 08:05 RBC 2.84 X10^6/uL (4.7-6.0) L 12/21/19 08:05 Hgb 9.0 g/dL (13.5-18.0) L 12/21/19 08:05 Hct 27.4 % (42.0-54.0) L 12/21/19 08:05 MCV 96.4 fL (80.0-100.0) 12/21/19 08:05 MCH 31.8 pg (27.0-34.0) 12/21/19 08:05 MCHC 33.0 g/dL (33.0-35.0) 12/21/19 08:05 RDW 17.5 % (11.6-16.5) H 12/21/19 08:05 Plt Count 104 X10^3/uL (150.0-450.0) L 12/21/19 08:05 MPV 8.7 fL (7.4-11.0) 12/21/19 08:05 Neut % (Auto) 84.8 % (42.0-75.0) H 12/21/19 08:05 Lymph % (Auto) 7.2 % (21.0-51.0) L 12/21/19 08:05 [place] % (Auto) 6.9 % (0.0-13.0) 12/21/19 08:05 Eos % (Auto) 0.5 % (0.9-2.9) L 12/21/19 08:05 Baso % (Auto) 0.6 % (0.2-1.0) 12/21/19 08:05 Neut # (Auto) 4.6 x10^3/uL (2.2-4.8) 12/21/19 08:05 Lymph # (Auto) 0.4 X10^3/uL (1.3-2.9) L 12/21/19 08:05 [place] # (Auto) 0.4 x10^3/uL (0.3-0.8) 12/21/19 08:05 Eos # (Auto) 0.0 x10^3/uL (0.0-0.2) 12/21/19 08:05 Baso # (Auto) 0.0 X10^3/uL (0.0-0.1) 12/21/19 08:05 Absolute Nucleated RBC 0.1 /100WBC 12/21/19 08:05 Sodium 144 mmol/L (136-145) 12/21/19 08:05 Corrected Sodium 145 mmol/L (136-145) 12/21/19 08:05 Potassium 4.3 mmol/L (3.5-5.1) 12/21/19 08:05 Chloride 108 mmol/L (98-107) H 12/21/19 08:05 Carbon Dioxide 25.2 mmol/L (21-32) 12/21/19 08:05 BUN 61 mg/dL (7-18) H 12/21/19 08:05 Creatinine 2.87 mg/dL (0.70-1.30) H 12/21/19 08:05 Est GFR (MDRD) Af Amer 27 (>60) L 12/21/19 08:05 Est GFR (MDRD) Non-Af 22 (>60) L 12/21/19 08:05 Glucose 153 mg/dL (65-99) H 12/21/19 08:05 Calcium 9.2 mg/dL (8.5-10.1) 12/21/19 08:05 Corrected Calcium TNP 12/21/19 08:05 Total Bilirubin 0.60 mg/dL (0.2-1.0) 12/21/19 08:05 AST 43 Units/L (15-37) H 12/21/19 08:05 ALT 101 Units/L (12-78) H 12/21/19 08:05 Alkaline Phosphatase 62 Units/L (46-116) 12/21/19 08:05 Creatine Kinase 344 Units/L (39-308) H 12/21/19 08:05 CK-MB (CK-2) 3.7 ng/mL (0-4.0) 12/21/19 08:05 CK/CKMB % Calc 1.1 % (<4) 12/21/19 08:05 Troponin I 0.07 ng/mL (0-1.5) 12/21/19 08:05 B-Natriuretic Peptide 1850 pg/mL (0-79) H* 12/21/19 08:05 Total Protein 6.9 g/dL (6.4-8.2) 12/21/19 08:05 Albumin 3.6 g/dL (3.4-5.0) 12/21/19 08:05 Globulin 3.3 g/dL (2.5-4.5) 12/21/19 08:05 Albumin/Globulin Ratio 1.1 Ratio (1.1-2.1) 12/21/19 08:05 - XRAY Xray Findings: CHEST: IMPRESSION 1. Cardiomegaly with pulmonary vascular congestion. 2. Superimposed airspace disease is likely present at both bases as well. (ERIC ZHENG) Opioid - Opioid Risk Tool Age (Eric box if 16-45): No History of Preadolescent Sexual Abuse: No Total: 0 Total Score Risk Category: Low Risk - Diagnosis Discharge Problem: COPD (chronic obstructive pulmonary disease) with acute bronchitis CHF (congestive heart failure) Qualifiers: Heart failure type: other Qualified Code(s): I50.9 - Heart failure, unspecified Anemia Qualifiers: Anemia type: due to chronic kidney disease Chronic kidney disease stage: stage 3 (moderate) Qualified Code(s): N18.3 - Chronic kidney disease, stage 3 (moderate); D63.1 - Anemia in chronic kidney disease - Discharge Plan Condition: Stable
[2019-12-21 07:56] VITALS: BMI 24.4
--- NOTE | 2019-12-21 08:14 | RAD ---
HISTORYDYSPNEA, HTNSTUDYCHEST, 1 VIEWCOMPARISONPrevious chest radiograph from 11/15/2019FINDINGSCardiomegaly with pulmonary vascular congestion is seen. Superimposed airspace disease cannot be excluded at either lung base. Right pleural effusion is likely present as well. Bony thorax is unremarkable.IMPRESSION1. Cardiomegaly with pulmonary vascular congestion.2. Superimposed airspace disease is likely present at both bases as well.Electronically signed by: JUSTIN YAÑEZ (Dec 21, 2019 08:13:02)
[2019-12-21] MEDS ORDERED: XOPENEX 1.25 MG/3 ML NEBULE NEB ONE ×3 (08:18→08:38)
[2019-12-21 08:27] LABS: BASOPHILS % (AUTO) 0.6 % (0.2-1.0); EOSINOPHILS % (AUTO) 0.5 % (0.9-2.9); HEMATOCRIT 27.4 % (42.0-54.0); LYMPHOCYTES # (AUTO) 0.4 X10^3/uL (1.3-2.9); LYMPHOCYTES % (AUTO) 7.2 % (21.0-51.0); MEAN CORPUSCULAR HEMOGLOBIN 31.8 pg (27.0-34.0); MEAN CORPUSCULAR VOLUME 96.4 fL (80.0-100.0); MEAN PLATELET VOLUME 8.7 fL (7.4-11.0); MONOCYTES # (AUTO) 0.4 x10^3/uL (0.3-0.8); MONOCYTES % (AUTO) 6.9 % (0.0-13.0); NEUTROPHILS # (AUTO) 4.6 x10^3/uL (2.2-4.8); NEUTROPHILS % (AUTO) 84.8 % (42.0-75.0); PLATELET COUNT 104 X10^3/uL (150.0-450.0); RED BLOOD COUNT 2.84 X10^6/uL (4.7-6.0); RED CELL DISTRIBUTION WIDTH 17.5 % (11.6-16.5); WHITE BLOOD COUNT 5.4 X10^3/uL (3.6-10.0)
[2019-12-21 08:32] LABS: BLOOD UREA NITROGEN 61 mg/dL (7-18); CALCIUM 9.2 mg/dL (8.5-10.1); CARBON DIOXIDE 25.2 mmol/L (21-32); CHLORIDE 108 mmol/L (98-107); COR NA(FOR HYPERGLY) 145 mmol/L (136-145); CREATININE 2.87 mg/dL (0.70-1.30); SODIUM 144 mmol/L (136-145); TROPONIN I 0.07 ng/mL (0-1.5); eGFR NON BLACK RACES 22 (>60)
[2019-12-21] MEDS ORDERED: LABETALOL HCL IVP ONE (08:35)
[2019-12-21 08:36] LABS: ALANINE AMINOTRANSFERASE 101 Units/L (12-78); ALBUMIN 3.6 g/dL (3.4-5.0); ALKALINE PHOSPHATASE 62 Units/L (46-116); ASPARTATE AMINO TRANSFERASE 43 Units/L (15-37); CKMB % 1.1 % (<4); CREATINE KINASE 344 Units/L (39-308); CREATINE KINASE MB 3.7 ng/mL (0-4.0); TOTAL PROTEIN 6.9 g/dL (6.4-8.2)
[2019-12-21] MEDS ORDERED: LASIX IVP ONE (08:38)
[2019-12-21] MEDS ORDERED: NORMODYNE INJ 20 MG VIAL ONE (08:39)
[2019-12-21] MEDS ORDERED: LASIX ONE ×2 (08:40→16:33)
[2019-12-21] MEDS ORDERED: NITROGLYCERIN IV PREMIX 50 MG 50 MG/250 ML BAG IV ONE (09:05)
[2019-12-21] MEDS: NITROGLYCERIN IV PREMIX 50 MG 50 MG/250 ML BAG IV PRN (09:11)
[2019-12-21] MEDS: XOPENEX 1.25 MG/3 ML NEBULE NEB PRN ×2 (12:14→20:13)
[2019-12-21] MEDS ORDERED: APRESOLINE INJ 20 MG VIAL IVP ONE (16:10)
[2019-12-21] MEDS ORDERED: APRESOLINE INJ 20 MG VIAL ONE (16:36)
[2019-12-21] MEDS: LASIX IVP SCH (16:40)
[2019-12-21] MEDS ORDERED: HumuLIN R SUBCUT PRN (17:00)
--- NOTE | 2019-12-21 17:13 | DR.H&P ---
H&P - History & Physical for Day of: H&P Date: 12/21/19 - Chief Complaint Chief Complaint: SOB - History of Present Illness History of Present Illness: PT IS 84 BM ER ADMISSION WITH CO OF INCREASED SOB. PT HAS HX OF CHF AND COPD. PT HAS SUPPLEMENTAL O2 AT HOME. FAMILY REPORTS WAS IN HOSPITAL END OF OCTOBER WITH PNEUMONIA. PT HAS PMH OF CAD, CHF, COPD, DM, RENAL DISEASE. PT ADMITTED FOR TREATMENT OF ACUTE ILLNESS, CHF EXACERBATION. - Past Medical History Past Medical History: Anemia, Arthritis, CHF, COPD, Coronary Artery Disease, Dementia, Diabetes, Dyslipidemia, Hypertension, Renal Disease Additional Medical History: Prostate Cancer, Bronchitis, Constipation, chronic anemia - Past Surgical History Surgical History: CABG/Valve Surgery - Family History Family Medical History: Diabetes Mellitus, Coronary Artery Disease, Heart Failure, Hypertension - Social History Does patient currently use any type of tobacco product: No Have you used tobacco products in the last 12 months: No Type of Tobacco Use: Cigarettes Does any household member use tobacco: No Alcohol Use: None Drug Use: None - Medications Home Medications: Iodinated Contrast Media Allergy (Verified 09/01/19 09:44) ketorolac [From Toradol] Allergy (Verified 09/01/19 09:44) lisinopril Allergy (Verified 09/01/19 09:44) CONTINUE taking the following medications aspirin 81 mg PO DAILY 12/21/19 [History] carvedilol 25 mg PO BID 12/21/19 [History] clopidogrel 75 mg PO DAILY 12/21/19 [History] insulin regular human [Novolin R Regular U-100 Insuln] 1 sliding scale dose SUBCUT USEASDIRECTD 12/21/19 [History] multivitamin [Multiple Vitamins] 1 tab PO QAM 12/21/19 [History] - Review of Systems Constitutional: Weakness Eyes: No Symptoms Reported ENT: No Symptoms Reported Respiratory: Shortness of Breath Cardiovascular: Edema Gastrointestinal: No Symptoms Reported Genitourinary: Retention Musculoskeletal: No Symptoms Reported Skin: No Symptoms Reported Neurological: Weakness - Physical Exam Vital Signs: Temperature 97.7 F Pulse Rate [Right] 68 Pulse Rate 62 Respiratory Rate 22 Blood Pressure [Right Arm] 218/90 Blood Pressure 207/95 O2 Sat by Pulse Oximetry 90 Oriented: Normal Eyes: Normal Ear: Normal Nose: Normal Throat: Normal Respiratory: RLL Diminished, LLL Diminished Cardiovascular: Murmur, Edema : Normal Auscultation: Bowel Sounds: Normal Palpation: Normal Tenderness: Normal Skin: Decreased Turgur Musculoskeletal: Right, Left, Knee Psychiatric: Anxiety Affect: Anxious Speech Pattern: Clear, Appropriate - Assessment/Plan (1) CHF exacerbation Qualifiers: Heart failure type: combined systolic and diastolic Qualified Code(s): I50.43 - Acute on chronic combined systolic (congestive) and diastolic (congestive) heart failure Status: Acute Plan: ADMIT, CE AND CXR ON ADMISSION. IV LASIX ON ADMISSION, STRICT I&OS. BP CONTROL, VERIFY HOME MEDICATIONS. SUPPLEMENTAL O2, DUO NEBS, CARDIAC MONITORING (2) COPD (chronic obstructive pulmonary disease) with acute bronchitis Status: Chronic (3) Anemia Qualifiers: Anemia type: due to chronic kidney disease Chronic kidney disease stage: stage 3 (moderate) Qualified Code(s): N18.3 - Chronic kidney disease, stage 3 (moderate); D63.1 - Anemia in chronic kidney disease Status: Chronic (4) CRF (chronic renal failure) Qualifiers: Chronic kidney disease stage: stage 4 (severe) Qualified Code(s): N18.4 - Chronic kidney disease, stage 4 (severe) Status: Chronic (5) Chronic kidney disease (CKD) stage G4/A1, severely decreased glomerular filtration rate (GFR) between 15-29 mL/min/1.73 square meter and albuminuria creatinine ratio less than 30 mg/g Status: Chronic (6) Diabetes type 2, controlled Status: Chronic (7) GERD (gastroesophageal reflux disease) Qualifiers: Status: Chronic (8) Hypertension, uncontrolled Status: Chronic - Allergies Allergies/Adverse Reactions: Allergies Allergy/AdvReac Type Severity Reaction Status Date / Time Iodinated Contrast Media Allergy Verified 09/01/19 09:44 ketorolac [From Toradol] Allergy Verified 09/01/19 09:44 lisinopril Allergy Verified 09/01/19 09:44
[2019-12-21 17:31] LABS: ABG BASE EXCESS 2.5 mmol/L (-2.0-2.0); ABG HCO3 26.3 mmol/L (22-26)
[2019-12-21] MEDS: ASPIRIN EC 81 MG PO SCH (17:42)
[2019-12-21] MEDS ORDERED: COREG TAB 25 MG PO SCH (18:00)
[2019-12-21] MEDS: SNACK - Diabetic Appropriate PO SCH (20:28)
[2019-12-21] MEDS: COREG TAB 25 MG PO SCH (20:29)
[2019-12-21] MEDS: PROSCAR PO SCH (20:29)
[2019-12-21] MEDS: LIPITOR TAB 40 MG PO SCH (20:29)
[2019-12-21] MEDS: CHECK PATCH XX SCH (20:29)
[2019-12-21] MEDS ORDERED: CATAPRES-TTS-2 TD SCH (21:00)
[2019-12-21] MEDS ORDERED: COREG TAB 12.5 MG PO SCH (21:00)
[2019-12-21] MEDS: APRESOLINE TAB 25 MG PO SCH (21:13)
[2019-12-22] MEDS: NITROGLYCERIN IV PREMIX 50 MG 50 MG/250 ML BAG IV PRN (06:03)
[2019-12-22] MEDS: APRESOLINE TAB 25 MG PO SCH ×3 (06:06→21:00)
[2019-12-22 06:55] LABS: BASOPHILS % (AUTO) 0.8 % (0.2-1.0); EOSINOPHILS # (AUTO) 0.1 x10^3/uL (0.0-0.2); EOSINOPHILS % (AUTO) 2.8 % (0.9-2.9); HEMATOCRIT 22.1 % (42.0-54.0); LYMPHOCYTES # (AUTO) 0.5 X10^3/uL (1.3-2.9); LYMPHOCYTES % (AUTO) 11.5 % (21.0-51.0); MEAN CORPUSCULAR HEMOGLOBIN 32.3 pg (27.0-34.0); MEAN CORPUSCULAR HGB CONC 33.7 g/dL (33.0-35.0); MEAN CORPUSCULAR VOLUME 95.9 fL (80.0-100.0); MEAN PLATELET VOLUME 8.8 fL (7.4-11.0); MONOCYTES # (AUTO) 0.4 x10^3/uL (0.3-0.8); MONOCYTES % (AUTO) 10.2 % (0.0-13.0); NEUTROPHILS # (AUTO) 3.1 x10^3/uL (2.2-4.8); NEUTROPHILS % (AUTO) 74.7 % (42.0-75.0); PLATELET COUNT 88 X10^3/uL (150.0-450.0); RED CELL DISTRIBUTION WIDTH 17.9 % (11.6-16.5); WHITE BLOOD COUNT 4.1 X10^3/uL (3.6-10.0)
[2019-12-22 06:57] LABS: HEMOGLOBIN 7.4 g/dL (13.5-18.0)
[2019-12-22 07:06] LABS: ALBUMIN 2.8 g/dL (3.4-5.0); CALCIUM 8.6 mg/dL (8.5-10.1); CARBON DIOXIDE 27.3 mmol/L (21-32); COR CA(FOR HYPOALB) 9.6 mg/dL (8.5-10.1); CREATININE 2.89 mg/dL (0.70-1.30); TOTAL PROTEIN 5.7 g/dL (6.4-8.2)
[2019-12-22 07:20] LABS: HYPOCHROMASIA SLIGHT; PLATELET MORPHOLOGY COMMENT NORMAL (NORMAL)
[2019-12-22] MEDS ORDERED: LEXAPRO ONE (09:34)
[2019-12-22] MEDS: LASIX IVP SCH (09:44)
[2019-12-22] MEDS: PROTONIX TAB 40 MG PO SCH (09:45)
[2019-12-22] MEDS: HEMOCYTE-PLUS PO SCH (09:45)
[2019-12-22] MEDS: LEXAPRO PO SCH (09:45)
[2019-12-22] MEDS: FLOMAX PO SCH (09:45)
[2019-12-22] MEDS: PEPCID TAB 20 MG PO SCH (09:45)
[2019-12-22] MEDS: PLAVIX PO SCH (09:46)
[2019-12-22] MEDS: COREG TAB 25 MG PO SCH ×2 (09:46→20:50)
[2019-12-22] MEDS: ASPIRIN EC 81 MG PO SCH (09:46)
[2019-12-22] MEDS: MICRO K EXTEN CAP 10 MEQ PO SCH (09:46)
[2019-12-22] MEDS: LANTUS SC SCH (09:47)
[2019-12-22] MEDS: PROCARDIA XL PO SCH (09:47)
[2019-12-22] MEDS: CHECK PATCH XX SCH ×2 (09:48→20:50)
--- NOTE | 2019-12-22 17:28 | PCM.PROG ---
Progress Note - Progress Note for Day of Date of Exam: 12/22/19 - Subjective Subjective: PT IS 84 BM, ER ADMISSION WITH DYSPNEA, CHF EXACERBATION. PT IS CURRENTLY ON SUPPLEMENTAL O2, RESP THERAPY, GENTLE IV DIURESIS. HGB 7.4 THIS AM, ANEMIA PANEL OBTAINED AND OCCULT STOOL. RENAL FUNCTION CREAT 2.89, CONTINUE TO ENCOURAGE ORAL HYDRATION. PT HOME MEDICATIONS RESUMED, SYSTOLIC BP ELEVATION THIS AM PRIOR TO MEDICATION ADMINISTRATION. PT CONSULT. WILL REPEAT AM CBC CMP, CXR. CONTINUE CARDIAC MONITORING - Past Medical Family Social History Past Med/Fam/Surg Hx: No changes since H&P Allergies: Allergies Iodinated Contrast Media Allergy (Verified 09/01/19 09:44) ketorolac [From Toradol] Allergy (Verified 09/01/19 09:44) lisinopril Allergy (Verified 09/01/19 09:44) - Review of Systems ROS: No change since H&P - Vital Signs and I&O's Vital Signs: Temperature 98.6 F Pulse Rate [Right] 51 Pulse Rate 83 Respiratory Rate 18 Blood Pressure [Left Arm] 170/73 Blood Pressure [Right Arm] 176/72 Blood Pressure 207/95 O2 Sat by Pulse Oximetry 99 Intake and Output: Intake & Output 12/20/19 12/21/19 12/22/19 12/23/19 11:59 11:59 11:59 11:59 Intake Total 40 / 40 550 / 550 Output Total 250 / 250 550 / 550 Balance -210 / -210 0 / 0 - Physical Exam Oriented: Normal Eyes: Normal Ear: Normal Nose: Normal Throat: Normal Respiratory: Wheezes Cardiovascular: Murmur, Edema : Normal Auscultation: Bowel Sounds: Normal Tenderness: Normal Skin: Decreased Turgur Musculoskeletal: Right, Left, Knee Psychiatric: Anxiety Affect: Anxious Speech Pattern: Clear, Appropriate - Laboratory and Diagnostics Result Diagrams: 12/22/19 06:18 12/22/19 06:18 Labs: Laboratory WBC 4.1 X10^3/uL (3.6-10.0) 12/22/19 06:18 RBC 2.30 X10^6/uL (4.7-6.0) L 12/22/19 06:18 Hgb 7.4 g/dL (13.5-18.0) L 12/22/19 06:18 Hct 22.1 % (42.0-54.0) L 12/22/19 06:18 MCV 95.9 fL (80.0-100.0) 12/22/19 06:18 MCH 32.3 pg (27.0-34.0) 12/22/19 06:18 MCHC 33.7 g/dL (33.0-35.0) 12/22/19 06:18 RDW 17.9 % (11.6-16.5) H 12/22/19 06:18 Plt Count 88 X10^3/uL (150.0-450.0) L 12/22/19 06:18 Plt Count Comment Decreased (ADEQUATE) 12/22/19 06:18 MPV 8.8 fL (7.4-11.0) 12/22/19 06:18 Neut % (Auto) 74.7 % (42.0-75.0) 12/22/19 06:18 Lymph % (Auto) 11.5 % (21.0-51.0) L 12/22/19 06:18 [place] % (Auto) 10.2 % (0.0-13.0) 12/22/19 06:18 Eos % (Auto) 2.8 % (0.9-2.9) 12/22/19 06:18 Baso % (Auto) 0.8 % (0.2-1.0) 12/22/19 06:18 Neut # (Auto) 3.1 x10^3/uL (2.2-4.8) 12/22/19 06:18 Lymph # (Auto) 0.5 X10^3/uL (1.3-2.9) L 12/22/19 06:18 [place] # (Auto) 0.4 x10^3/uL (0.3-0.8) 12/22/19 06:18 Eos # (Auto) 0.1 x10^3/uL (0.0-0.2) 12/22/19 06:18 Baso # (Auto) 0.0 X10^3/uL (0.0-0.1) 12/22/19 06:18 Absolute Nucleated RBC 0.0 /100WBC 12/22/19 06:18 Plt Morphology Comment Normal (NORMAL) 12/22/19 06:18 RBC Morphology Abnormal (NORMAL) 12/22/19 06:18 Hypochromasia Slight A 12/22/19 06:18 Sample Site Rb 12/21/19 17:21 ABG pH 7.460 (7.35-7.45) H 12/21/19 17:21 ABG pCO2 37.0 mmHg (35.0-45.0) 12/21/19 17:21 ABG pO2 64.0 mmHg (80.0-100.0) L 12/21/19 17: ABG HCO3 26.3 mmol/L (22-26) H 12/21/19 17:21 ABG O2 Saturation 93.0 % (90-100) 12/21/19 17:21 ABG Base Excess 2.5 mmol/L (-2.0-2.0) H 12/21/19 17:21 Mitch Test Na 12/21/19 17:21 A-a Gradient 89.0 mmHg 12/21/19 17:21 FiO2 28.0 12/21/19 17:21 Blood Gas Comments Pt devon well. cdn 12/21/19 17:21 Sodium 145 mmol/L (136-145) 12/22/19 06:18 Corrected Sodium 146 mmol/L (136-145) H 12/22/19 06:18 Potassium 3.7 mmol/L (3.5-5.1) 12/22/19 06:18 Chloride 111 mmol/L (98-107) H 12/22/19 06:18 Carbon Dioxide 27.3 mmol/L (21-32) 12/22/19 06:18 BUN 62 mg/dL (7-18) H 12/22/19 06:18 Creatinine 2.89 mg/dL (0.70-1.30) H 12/22/19 06:18 Est GFR (MDRD) Af Amer 27 (>60) L 12/22/19 06:18 Est GFR (MDRD) Non-Af 22 (>60) L 12/22/19 06:18 Glucose 129 mg/dL (65-99) H 12/22/19 06:18 POC Glucose (mg/dL) 143 mg/dL (65-99) H 12/22/19 16:22 Calcium 8.6 mg/dL (8.5-10.1) 12/22/19 06:18 Corrected Calcium 9.6 mg/dL (8.5-10.1) 12/22/19 06:18 Iron 21 ug/dL (50-175) L 12/22/19 06:18 Transferrin 131 mg/dL (202-364) L 12/22/19 06:18 Ferritin 243 ng/mL (26-388) 12/22/19 06:18 Total Bilirubin 0.50 mg/dL (0.2-1.0) 12/22/19 06:18 AST 26 Units/L (15-37) 12/22/19 06:18 ALT 79 Units/L (12-78) H 12/22/19 06:18 Alkaline Phosphatase 44 Units/L (46-116) L 12/22/19 06:18 Creatine Kinase 344 Units/L (39-308) H 12/21/19 08:05 CK-MB (CK-2) 3.7 ng/mL (0-4.0) 12/21/19 08:05 CK/CKMB % Calc 1.1 % (<4) 12/21/19 08:05 Troponin I 0.07 ng/mL (0-1.5) 12/21/19 08:05 B-Natriuretic Peptide 1850 pg/mL (0-79) H* 12/21/19 08:05 Total Protein 5.7 g/dL (6.4-8.2) L 12/22/19 06:18 Albumin 2.8 g/dL (3.4-5.0) L 12/22/19 06:18 Globulin 2.9 g/dL (2.5-4.5) 12/22/19 06:18 Albumin/Globulin Ratio 1.0 Ratio (1.1-2.1) L 12/22/19 06:18 Vitamin B12 1161 pg/mL (193-986) H 12/22/19 06:18 Folate 19.3 ng/mL (>8.6) 12/22/19 06:18 - Plan (1) CHF exacerbation Status: Acute Qualifiers: Heart failure type: combined systolic and diastolic Qualified Code(s): I50.43 - Acute on chronic combined systolic (congestive) and diastolic (congestive) heart failure Plan: CE ON ADMISSION, AM CXR. IV LASIX ON ADMISSION, STRICT I&OS. BP CONTROL, VERIFY HOME MEDICATIONS. SUPPLEMENTAL O2, DUO NEBS, CARDIAC MONITORING (2) COPD (chronic obstructive pulmonary disease) with acute bronchitis Status: Chronic (3) Anemia Status: Chronic Qualifiers: Anemia type: due to chronic kidney disease Chronic kidney disease stage: stage 3 (moderate) Qualified Code(s): N18.3 - Chronic kidney disease, stage 3 (moderate); D63.1 - Anemia in chronic kidney disease (4) CRF (chronic renal failure) Status: Chronic Qualifiers: Chronic kidney disease stage: stage 4 (severe) Qualified Code(s): N18.4 - Chronic kidney disease, stage 4 (severe) (5) Chronic kidney disease (CKD) stage G4/A1, severely decreased glomerular filtration rate (GFR) between 15-29 mL/min/1.73 square meter and albuminuria creatinine ratio less than 30 mg/g Status: Chronic (6) Diabetes type 2, controlled Status: Chronic (7) GERD (gastroesophageal reflux disease) Status: Chronic Qualifiers: (8) Hypertension, uncontrolled Status: Chronic
[2019-12-22] MEDS: PROSCAR PO SCH (20:50)
[2019-12-22] MEDS: SNACK - Diabetic Appropriate PO SCH (20:50)
[2019-12-22] MEDS: LIPITOR TAB 40 MG PO SCH (20:50)
[2019-12-23] MEDS: APRESOLINE TAB 25 MG PO SCH ×3 (05:11→21:21)
[2019-12-23 06:49] LABS: EOSINOPHILS # (AUTO) 0.2 x10^3/uL (0.0-0.2); EOSINOPHILS % (AUTO) 4.7 % (0.9-2.9); HEMATOCRIT 25.1 % (42.0-54.0); HEMOGLOBIN 8.4 g/dL (13.5-18.0); LYMPHOCYTES # (AUTO) 0.5 X10^3/uL (1.3-2.9); LYMPHOCYTES % (AUTO) 12.6 % (21.0-51.0); MEAN CORPUSCULAR HEMOGLOBIN 32.2 pg (27.0-34.0); MEAN CORPUSCULAR HGB CONC 33.7 g/dL (33.0-35.0); MEAN CORPUSCULAR VOLUME 95.7 fL (80.0-100.0); MEAN PLATELET VOLUME 8.6 fL (7.4-11.0); MONOCYTES # (AUTO) 0.4 x10^3/uL (0.3-0.8); MONOCYTES % (AUTO) 9.7 % (0.0-13.0); PLATELET COUNT 101 X10^3/uL (150.0-450.0); RED BLOOD COUNT 2.62 X10^6/uL (4.7-6.0); RED CELL DISTRIBUTION WIDTH 17.7 % (11.6-16.5); WHITE BLOOD COUNT 4.1 X10^3/uL (3.6-10.0)
[2019-12-23 07:04] LABS: ALANINE AMINOTRANSFERASE 71 Units/L (12-78); ALBUMIN 3.1 g/dL (3.4-5.0); ALKALINE PHOSPHATASE 46 Units/L (46-116); ASPARTATE AMINO TRANSFERASE 26 Units/L (15-37); BLOOD UREA NITROGEN 58 mg/dL (7-18); CALCIUM 9.1 mg/dL (8.5-10.1); CARBON DIOXIDE 27.1 mmol/L (21-32); CHLORIDE 110 mmol/L (98-107); COR CA(FOR HYPOALB) 9.8 mg/dL (8.5-10.1); CREATININE 2.94 mg/dL (0.70-1.30); SODIUM 145 mmol/L (136-145); TOTAL PROTEIN 6.1 g/dL (6.4-8.2); eGFR NON BLACK RACES 22 (>60)
[2019-12-23] MEDS ORDERED: LEXAPRO ONE (09:23)
[2019-12-23] MEDS: PEPCID TAB 20 MG PO SCH (09:33)
[2019-12-23] MEDS: COREG TAB 25 MG PO SCH ×2 (09:33→20:41)
[2019-12-23] MEDS: COLACE CAP 100 MG PO SCH ×2 (09:33→20:43)
[2019-12-23] MEDS: FLOMAX PO SCH (09:33)
[2019-12-23] MEDS: MILK OF MAGNESIA PO SCH (09:33)
[2019-12-23] MEDS: PLAVIX PO SCH (09:34)
[2019-12-23] MEDS: ASPIRIN EC 81 MG PO SCH (09:34)
[2019-12-23] MEDS: HEMOCYTE-PLUS PO SCH (09:34)
[2019-12-23] MEDS: LEXAPRO PO SCH (09:34)
[2019-12-23] MEDS: LANTUS SC SCH (09:34)
[2019-12-23] MEDS: MICRO K EXTEN CAP 10 MEQ PO SCH (09:35)
[2019-12-23] MEDS: PROTONIX TAB 40 MG PO SCH (09:39)
[2019-12-23] MEDS: LASIX PO SCH (09:40)
[2019-12-23] MEDS: PROCARDIA XL PO SCH (09:40)
[2019-12-23] MEDS: CHECK PATCH XX SCH ×2 (09:41→21:22)
[2019-12-23] MEDS ORDERED: APRESOLINE INJ 20 MG VIAL IVP ONE (12:36)
--- NOTE | 2019-12-23 15:17 | RAD ---
HISTORYCHF, SOBSTUDYCHEST x-ray, 1 VIEWCOMPARISONX-ray 12/21/2019FINDINGSProbable CHF and pulmonary edema. This appears improved. No focal infiltrate is seen. No pleural effusion or pneumothorax is seen.IMPRESSIONCHF and pulmonary edema appear improved from prior study.Electronically signed by: Valentin Hernandez (Dec 23, 2019 15:15:50)
[2019-12-23] MEDS: XOPENEX 1.25 MG/3 ML NEBULE NEB PRN (20:04)
[2019-12-23] MEDS: SNACK - Diabetic Appropriate PO SCH (20:40)
[2019-12-23] MEDS: NORCO 5/325 MG TAB PO PRN (20:40)
[2019-12-23] MEDS: LIPITOR TAB 40 MG PO SCH (20:41)
[2019-12-23] MEDS: PROSCAR PO SCH (20:41)
[2019-12-24] MEDS: NORCO 5/325 MG TAB PO PRN (04:30)
[2019-12-24] MEDS: APRESOLINE TAB 25 MG PO SCH ×2 (05:30→13:40)
[2019-12-24 06:56] LABS: BASOPHILS % (AUTO) 0.9 % (0.2-1.0); EOSINOPHILS # (AUTO) 0.2 x10^3/uL (0.0-0.2); EOSINOPHILS % (AUTO) 4.1 % (0.9-2.9); HEMATOCRIT 25.1 % (42.0-54.0); HEMOGLOBIN 8.4 g/dL (13.5-18.0); LYMPHOCYTES # (AUTO) 0.5 X10^3/uL (1.3-2.9); LYMPHOCYTES % (AUTO) 13.5 % (21.0-51.0); MEAN CORPUSCULAR HEMOGLOBIN 32.2 pg (27.0-34.0); MEAN CORPUSCULAR HGB CONC 33.4 g/dL (33.0-35.0); MEAN CORPUSCULAR VOLUME 96.3 fL (80.0-100.0); MEAN PLATELET VOLUME 8.8 fL (7.4-11.0); MONOCYTES # (AUTO) 0.4 x10^3/uL (0.3-0.8); MONOCYTES % (AUTO) 9.3 % (0.0-13.0); NEUTROPHILS # (AUTO) 2.7 x10^3/uL (2.2-4.8); NEUTROPHILS % (AUTO) 72.2 % (42.0-75.0); PLATELET COUNT 108 X10^3/uL (150.0-450.0); RED BLOOD COUNT 2.61 X10^6/uL (4.7-6.0); RED CELL DISTRIBUTION WIDTH 18.1 % (11.6-16.5); WHITE BLOOD COUNT 3.8 X10^3/uL (3.6-10.0)
[2019-12-24 07:10] LABS: ALANINE AMINOTRANSFERASE 61 Units/L (12-78); ALKALINE PHOSPHATASE 46 Units/L (46-116); ASPARTATE AMINO TRANSFERASE 20 Units/L (15-37); BLOOD UREA NITROGEN 52 mg/dL (7-18); CALCIUM 8.8 mg/dL (8.5-10.1); CARBON DIOXIDE 27.9 mmol/L (21-32); CHLORIDE 109 mmol/L (98-107); COR CA(FOR HYPOALB) 9.6 mg/dL (8.5-10.1); CREATININE 2.79 mg/dL (0.70-1.30); SODIUM 144 mmol/L (136-145); TOTAL PROTEIN 6.1 g/dL (6.4-8.2); eGFR NON BLACK RACES 23 (>60)
[2019-12-24] MEDS ORDERED: LEXAPRO ONE (09:27)
[2019-12-24] MEDS: PEPCID TAB 20 MG PO SCH (09:37)
[2019-12-24] MEDS: MICRO K EXTEN CAP 10 MEQ PO SCH (09:38)
[2019-12-24] MEDS: PROCARDIA XL PO SCH (09:39)
[2019-12-24] MEDS: HEMOCYTE-PLUS PO SCH (09:39)
[2019-12-24] MEDS: COLACE CAP 100 MG PO SCH (09:40)
[2019-12-24] MEDS: MILK OF MAGNESIA PO SCH (09:40)
[2019-12-24] MEDS: LASIX PO SCH (09:40)
[2019-12-24] MEDS: LEXAPRO PO SCH (09:40)
[2019-12-24] MEDS: PROTONIX TAB 40 MG PO SCH (09:41)
[2019-12-24] MEDS: COREG TAB 25 MG PO SCH (09:41)
[2019-12-24] MEDS: CHECK PATCH XX SCH (09:41)
[2019-12-24] MEDS: FLOMAX PO SCH (09:41)
[2019-12-24] MEDS: ASPIRIN EC 81 MG PO SCH (09:41)
[2019-12-24] MEDS: LANTUS SC SCH (09:43)
[2019-12-24] MEDS: PLAVIX PO SCH (09:43)
[2019-12-24] MEDS: XOPENEX 1.25 MG/3 ML NEBULE NEB PRN (09:51)
[2019-12-24] MEDS ORDERED: APRESOLINE INJ 20 MG VIAL IVP ONE (11:00)
[2019-12-24 13:31] VITALS: BP 178/80
== END 2019-12-24 13:55 | disposition home health service (06) | DRG 292 ==
LOC: ER 07:42 → MED/SURG 09:28
PROVIDERS: ADMIT Internal Medicine; ATTEND Internal Medicine
DX: E11.65 Type 2 diabetes mellitus with hyperglycemia; R26.89 Other abnormalities of gait and mobility; I13.0 Hypertensive heart and chronic kidney disease with heart failure and stage 1 through stage 4 chronic kidney disease, or unspecified chronic kidney disease; J44.9 Chronic obstructive pulmonary disease, unspecified; R94.31 Abnormal electrocardiogram [ECG] [EKG]; I25.10 Atherosclerotic heart disease of native coronary artery without angina pectoris; N18.4 Chronic kidney disease, stage 4 (severe); R06.02 Shortness of breath; I50.9 Heart failure, unspecified; D63.1 Anemia in chronic kidney disease; J20.8 Acute bronchitis due to other specified organisms

== ENCOUNTER 2020-02-03 20:40 | Observation (INO) ==
--- NOTE | 2020-02-03 20:52 | DR.SOBA ---
HPI Time Seen Time Seen by Provider: 02/03/20 20:45 HPI Comment HPI Comment: PATIENT IS 84YR OLD MALE IN ER WITH INCREASING SOB AND CHEST PAIN TIMES 2 DAYS THAT IS WORSE TODAY. NO FEVER. COUGHING, NON PRODUCTIV E AND WHEEZING. SOB GETTING WORSE TODAY. PATIENT DENIES DYSURIA, CONGESTION. HAVE 2 PLUS PERIPHERAL EDEMA. Complaints Chief Complaint Doctors Comments: INCREASING SOB AND CHEST PAIN TIMES 2 DAYS. COVID-19 Coronavirus risk:travel/contact w/high risk person: No Has patient experienced Coronavirus symptoms: No Coronavirus symptoms experienced: Shortness of Breath Reviewed Nurses Notes Reviewed: Yes Source History Provided: Patient and EMS Mode of Arrival Mode of Arrival: EMS Duration Duration: Days Context Onset:: At Rest PE Risk Factors:: None History of:: COPD and CHF Currently on:: Inhaled Bronchodilators Prehospital Care:: Inhaled B2 and Furosemide Modifying Factors Worsens:: Exertion Improves:: Rest and Sitting Up Associated Signs and Symptoms Associated Signs and Symptoms: Wheeze, Cough and Chest Pain If Chest Pain Quality: Pleuritic (TIGHTNESS.) Location: Substernal If Cough Cough: Nonproductive PMH PMH Past Medical History: Anemia, Arthritis, CHF, COPD, Coronary Artery Disease, Dementia, Diabetes, Dyslipidemia, Hypertension and Renal Disease Past Surgical History: Yes Surgical History: CABG/Valve Surgery Family History Family Medical History: Diabetes Mellitus, Coronary Artery Disease, Heart Failure and Hypertension Social History Do you use any recreational Drugs:: No ROS Review of Systems Constitutional: See HPI, Fever, Weakness and Fatigue Eyes: No Symptoms Reported ENTM: Nose Congestion; negative Ear Pain, Nose Discharge and Throat Pain Respiratoy: See HPI, Non-Productive Cough, Short of Breath and Wheezing Cardiovascular: See HPI, Chest Pain and Edema Gastrointestinal/Abdominal: No Symptoms Reported and See HPI; negative Abdominal Pain, Diarrhea and Vomiting Genitourinary: No Symptoms Reported and See HPI; negative Dysuria and Hematuria Neurological: See HPI and Weakness; negative Headache and Dizziness Musculoskeletal: See HPI and Back Pain Integumentary: No Symptoms Reported and See HPI; negative Change in Color, Rash and Juandice Hematologic/Lymphatic: No Symptoms Reported and See HPI; negative Easy Bruising and Swollen Glands Endocrine: No Symptoms Reported and See HPI; negative Increased Thirst and Increased Urine Psychiatric: No Symptoms Reported and See HPI All Other Systems: Reviewed and Negative Unable to Obtain Due To: Dementia PE Vital Signs Vitals: Temperature 98.6 F Pulse Rate 65 Respiratory Rate 28 Blood Pressure [Left Arm] 208/92 Blood Pressure [Right Arm] 178/80 Blood Pressure 184/83 O2 Sat by Pulse Oximetry 100 General Limitations: No Limitations General Appearance: Alert and In No Apparent Distress Head Head Exam: Normal Inspection and Atraumatic Eyes Eye exam: Normal Appearance and PERRL ENT ENT Exam: Normal Exam Neck Neck Exam: Normal Inspection Chest Chest Inspection: Normal Inspection Respiratory Respiratory Exam: Normal Lung Sounds Bilat Respiratory Exam: Bilateral: Clear to Auscultation Cardiovascular Cardiovascular Exam: Regular Rate and Normal Rhythm Abdominal Exam Abdominal Exam: Normal Inspection, Normal Bowel Sounds and Soft Extremities Extremities Exam: Normal Inspection Back Back Exam: Normal Inspection Neurologic Neurological Exam: Alert and Oriented X3 Psychiatric Psychiatric Exam: Normal Affect and Normal Mood Skin Skin Exam: Warm, Dry, Intact and Normal Color MDM Differential Diagnosis Differential Diagnosis: Bronchitis, CHF, COPD, Dysrhythmia, Hypertensive Emergency, Hyponatremia, Mycardial Infarction, Pneumonia, Pulmonary embolism, Respiratory Insufficiency and URI COURSE Treatment Treatment: SEE ORDERS. NEB TREATMENT DURING TRANSPORT. LASIX, 40MG IV. SO9B IMPROVING. Reevaluation 1st: Improved Consultation Consultation Comments: DISCUSS PATIENT WITH DR. TIAN. HE WILL ADMIT PATIENT. Education/Counseling Education/Counseling: Patient Educated On: Diagnosis and Needs for Follow Up ROR Labs Reviewed Laboratory Results Reviewed?: Yes Result Diagrams: 02/04/20 05:32 02/04/20 05:32 Laboratory: WBC 3.9 X10^3/uL (3.6-10.0) 02/03/20 21:10 RBC 2.86 X10^6/uL (4.7-6.0) L 02/03/20 21:10 Hgb 9.2 g/dL (13.5-18.0) L 02/03/20 21:10 Hct 27.5 % (42.0-54.0) L 02/03/20 21:10 MCV 96.1 fL (80.0-100.0) 02/03/20 21:10 MCH 32.3 pg (27.0-34.0) 02/03/20 21:10 MCHC 33.6 g/dL (33.0-35.0) 02/03/20 21:10 RDW 15.6 % (11.6-16.5) 02/03/20 21:10 Plt Count 123 X10^3/uL (150.0-450.0) L 02/03/20 21:10 MPV 8.6 fL (7.4-11.0) 02/03/20 21:10 Neut % (Auto) 75.1 % (42.0-75.0) H 02/03/20 21:10 Lymph % (Auto) 10.9 % (21.0-51.0) L 02/03/20 21:10 Nolan % (Auto) 8.5 % (0.0-13.0) 02/03/20 21:10 Eos % (Auto) 4.2 % (0.9-2.9) H 02/03/20 21:10 Baso % (Auto) 1.3 % (0.2-1.0) H 02/03/20 21:10 Neut # (Auto) 2.9 x10^3/uL (2.2-4.8) 02/03/20 21:10 Lymph # (Auto) 0.4 X10^3/uL (1.3-2.9) L 02/03/20 21:10 Nolan # (Auto) 0.3 x10^3/uL (0.3-0.8) 02/03/20 21:10 Eos # (Auto) 0.2 x10^3/uL (0.0-0.2) 02/03/20 21:10 Baso # (Auto) 0.0 X10^3/uL (0.0-0.1) 02/03/20 21:10 Absolute Nucleated RBC 0.1 /100WBC 02/03/20 21:10 Sodium 142 mmol/L (136-145) 02/03/20 21:10 Corrected Sodium 144 mmol/L (136-145) 02/03/20 21:10 Potassium 3.9 mmol/L (3.5-5.1) 02/03/20 21:10 Chloride 106 mmol/L (98-107) 02/03/20 21:10 Carbon Dioxide 31.1 mmol/L (21-32) 02/03/20 21:10 BUN 42 mg/dL (7-18) H 02/03/20 21:10 Creatinine 2.98 mg/dL (0.70-1.30) H 02/03/20 21:10 Est GFR (MDRD) Af Amer 26 (>60) L 02/03/20 21:10 Est GFR (MDRD) Non-Af 21 (>60) L 02/03/20 21:10 Glucose 170 mg/dL (65-99) H 02/03/20 21:10 Lactic Acid 0.5 mmol/L (0.4-2.0) 02/03/20 21:10 Calcium 8.8 mg/dL (8.5-10.1) 02/03/20 21:10 Corrected Calcium 9.4 mg/dL (8.5-10.1) 02/03/20 21:10 Total Bilirubin 0.30 mg/dL (0.2-1.0) 02/03/20 21:10 AST 29 Units/L (15-37) 02/03/20 21:10 ALT 48 Units/L (12-78) 02/03/20 21:10 Alkaline Phosphatase 59 Units/L (46-116) 02/03/20 21:10 Creatine Kinase 132 Units/L (39-308) 02/03/20 21:10 CK-MB (CK-2) 2.0 ng/mL (0-4.0) 02/03/20 21:10 CK/CKMB % Calc 1.5 % (<4) 02/03/20 21:10 Troponin I 0.05 ng/mL (0-1.5) 02/03/20 21:10 B-Natriuretic Peptide 2090 pg/mL (0-79) H* 02/03/20 21:10 Total Protein 6.2 g/dL (6.4-8.2) L 02/03/20 21:10 Albumin 3.2 g/dL (3.4-5.0) L 02/03/20 21:10 Globulin 3.0 g/dL (2.5-4.5) 02/03/20 21:10 Albumin/Globulin Ratio 1.1 Ratio (1.1-2.1) 02/03/20 21:10 Specimen Type Clean catch urine 02/03/20 22:19 Urine Color Pale yellow (YELLOW) 02/03/20 22:19 Urine Appearance Clear (CLEAR) 02/03/20 22:19 Urine pH 6.0 (5.0 - 8.0) 02/03/20 22:19 Ur Specific [place] 1.010 (1.000-1.030) 02/03/20 22:19 Urine Protein 3+ (NEGATIVE) 02/03/20 22:19 Urine Glucose (UA) Negative (NEGATIVE) 02/03/20 22:19 Urine Ketones Negative (NEGATIVE) 02/03/20 22:19 Urine Occult Blood Negative (NEGATIVE) 02/03/20 22:19 Urine Nitrite Negative (NEGATIVE) 02/03/20 22:19 Urine Bilirubin Negative (NEGATIVE) 02/03/20 22:19 Urine Urobilinogen Normal (NORMAL) 02/03/20 22:19 Ur Leukocyte Esterase Negative (NEGATIVE) 02/03/20 22:19 Urine RBC 0-2 /HPF (0-3) 02/03/20 22:19 Urine WBC 0-2 /HPF (0-5) 02/03/20 22:19 Ur Squamous Epith Cells Rare /HPF (NEGATIVE) 02/03/20 22:19 Urine Bacteria Negative /HPF (NEGATIVE) 02/03/20 22:19 Ur Culture Indicated? No/not indicated 02/03/20 22:19 Acetone, Semi-Quant Negative (NEGATIVE) 02/03/20 21:29 XRAY XRAY Interpreted by: Radiologist (REPORT NOTED AND DISCUSSED WITH PATIENT.) and Self (PULMONARY CONGESTION.) EKG Rate: 61 [place]: Normal Rhythm: NSR Block: 1 and RBBB Hypertrophy: LVH ST: Nonsp Opioid Opioid Risk Tool Age ([place] if 16-45): No History of Preadolescent Sexual Abuse: No Total: 0 Total Score Risk Category: Low Risk Copyright: [facility] predicting aberrant behaviors Diagnosis Discharge Problem: SOB (shortness of breath) Hypertension Qualifiers: Hypertension type: essential hypertension Qualified Code(s): I10 - Essential (primary) hypertension CHF (congestive heart failure) Qualifiers: Heart failure type: combined systolic and diastolic Heart failure chronicity: acute Qualified Code(s): I50.41 - Acute combined systolic (congestive) and diast olic (congestive) heart failure COPD (chronic obstructive pulmonary disease) Qualifiers: COPD type: COPD with acute exacerbation Qualified Code(s): J44.1 - Chronic obstructive pulmonary disease with (acute) exacerbation Anemia Qualifiers: Anemia type: unspecified type Qualified Code(s): D64.9 - Anemia, unspecified
--- NOTE | 2020-02-03 21:22 | RAD ---
HISTORYPT IN ED VIA STRETCHER PER [facility] WITH DIFFICULTY BREATHING AND SOB. STARTED 2 DAYS AGO AND GOTTEN WORSE TODAY. CHF, COPD, CAD, DIABETES, HTN, CABG/ VALVESTUDYCHEST, 1 VIEWCOMPARISONApril 2019FINDINGS[Status post CABG. There is mild cardiomegaly unchanged. Mild perihilar opacities with haziness noted, somewhat worse versus prior exam. There is no focal infiltrate.][There is no pleural effusion or pneumothorax.][The bony thorax is normally intact.]IMPRESSIONFindings compatible with mild to moderate pulmonary venous hypertension/increased fluid status worse versus prior exam..Electronically signed by: MANUELA CHANCE (Feb 03, 2020 21:20:50)
[2020-02-03 21:32] LABS: BASOPHILS % (AUTO) 1.3 % (0.2-1.0); EOSINOPHILS # (AUTO) 0.2 x10^3/uL (0.0-0.2); EOSINOPHILS % (AUTO) 4.2 % (0.9-2.9); HEMATOCRIT 27.5 % (42.0-54.0); HEMOGLOBIN 9.2 g/dL (13.5-18.0); LYMPHOCYTES # (AUTO) 0.4 X10^3/uL (1.3-2.9); LYMPHOCYTES % (AUTO) 10.9 % (21.0-51.0); MEAN CORPUSCULAR HEMOGLOBIN 32.3 pg (27.0-34.0); MEAN CORPUSCULAR HGB CONC 33.6 g/dL (33.0-35.0); MEAN CORPUSCULAR VOLUME 96.1 fL (80.0-100.0); MEAN PLATELET VOLUME 8.6 fL (7.4-11.0); MONOCYTES # (AUTO) 0.3 x10^3/uL (0.3-0.8); MONOCYTES % (AUTO) 8.5 % (0.0-13.0); NEUTROPHILS # (AUTO) 2.9 x10^3/uL (2.2-4.8); NEUTROPHILS % (AUTO) 75.1 % (42.0-75.0); PLATELET COUNT 123 X10^3/uL (150.0-450.0); RED BLOOD COUNT 2.86 X10^6/uL (4.7-6.0); RED CELL DISTRIBUTION WIDTH 15.6 % (11.6-16.5); WHITE BLOOD COUNT 3.9 X10^3/uL (3.6-10.0)
[2020-02-03] MEDS ORDERED: LASIX IVP ONE ×2 (21:47→22:30)
[2020-02-03 21:48] LABS: CALCIUM 8.8 mg/dL (8.5-10.1); CARBON DIOXIDE 31.1 mmol/L (21-32); CREATININE 2.98 mg/dL (0.70-1.30); TROPONIN I 0.05 ng/mL (0-1.5)
[2020-02-03 21:49] LABS: LACTIC ACID 0.5 mmol/L (0.4-2.0)
[2020-02-03 21:52] LABS: ALBUMIN 3.2 g/dL (3.4-5.0); CKMB % 1.5 % (<4); COR CA(FOR HYPOALB) 9.4 mg/dL (8.5-10.1); TOTAL PROTEIN 6.2 g/dL (6.4-8.2)
[2020-02-03] MEDS ORDERED: CATAPRES TAB 0.2 MG PO ONE (22:05)
[2020-02-03 22:26] LABS: BILIRUBIN,URINE NEGATIVE (NEGATIVE); BLOOD/HEMOGLOBIN,URINE NEGATIVE (NEGATIVE); GLUCOSE, URINE NEGATIVE (NEGATIVE); KETONES,URINE NEGATIVE (NEGATIVE); LEUKOCYTE ESTERASE ,URINE NEGATIVE (NEGATIVE); NITRITES,URINE NEGATIVE (NEGATIVE); PROTEIN,URINE 3+ (NEGATIVE); UROBILINOGEN,URINE NORMAL (NORMAL)
[2020-02-03] MEDS ORDERED: CATAPRES TAB 0.2 MG ONE (22:31)
[2020-02-03 22:32] LABS: APPEARANCE,URINE CLEAR (CLEAR); BACTERIA,URINE NEGATIVE /HPF (NEGATIVE); COLOR,URINE PALE YELLOW (YELLOW); RBC,URINE 0-2 /HPF (0-3); SQUAMOUS EPITHELIAL CELL,UR RARE /HPF (NEGATIVE)
[2020-02-04] MEDS ORDERED: CATAPRES-TTS-2 TD SCH (00:08)
[2020-02-04] MEDS ORDERED: LIPITOR TAB 40 MG PO SCH (00:08)
[2020-02-04] MEDS ORDERED: POTASSIUM CHLORIDE 10 MEQ PO SCH (00:08)
[2020-02-04 01:44] VITALS: BMI 24.5
[2020-02-04] MEDS ORDERED: MICRO K EXTEN CAP 10 MEQ PO SCH (02:00)
[2020-02-04] MEDS: APRESOLINE TAB 25 MG PO SCH ×4 (04:33→22:15)
[2020-02-04] MEDS ORDERED: HYDRALAZINE 100 MG PO SCH (06:00)
[2020-02-04 06:26] LABS: BASOPHILS % (AUTO) 0.9 % (0.2-1.0); EOSINOPHILS # (AUTO) 0.2 x10^3/uL (0.0-0.2); EOSINOPHILS % (AUTO) 4.2 % (0.9-2.9); HEMATOCRIT 25.5 % (42.0-54.0); HEMOGLOBIN 8.5 g/dL (13.5-18.0); LYMPHOCYTES # (AUTO) 0.5 X10^3/uL (1.3-2.9); LYMPHOCYTES % (AUTO) 12.2 % (21.0-51.0); MEAN CORPUSCULAR HEMOGLOBIN 32.2 pg (27.0-34.0); MEAN CORPUSCULAR HGB CONC 33.5 g/dL (33.0-35.0); MEAN CORPUSCULAR VOLUME 96.2 fL (80.0-100.0); MEAN PLATELET VOLUME 8.9 fL (7.4-11.0); MONOCYTES # (AUTO) 0.4 x10^3/uL (0.3-0.8); MONOCYTES % (AUTO) 9.8 % (0.0-13.0); NEUTROPHILS # (AUTO) 2.9 x10^3/uL (2.2-4.8); NEUTROPHILS % (AUTO) 72.9 % (42.0-75.0); PLATELET COUNT 111 X10^3/uL (150.0-450.0); RED BLOOD COUNT 2.65 X10^6/uL (4.7-6.0); RED CELL DISTRIBUTION WIDTH 15.6 % (11.6-16.5); WHITE BLOOD COUNT 3.9 X10^3/uL (3.6-10.0)
[2020-02-04 06:54] LABS: ALANINE AMINOTRANSFERASE 40 Units/L (12-78); ALKALINE PHOSPHATASE 51 Units/L (46-116); ASPARTATE AMINO TRANSFERASE 22 Units/L (15-37); BLOOD UREA NITROGEN 40 mg/dL (7-18); CALCIUM 8.8 mg/dL (8.5-10.1); CARBON DIOXIDE 29.6 mmol/L (21-32); CHLORIDE 107 mmol/L (98-107); CKMB % 1.6 % (<4); COR CA(FOR HYPOALB) 9.6 mg/dL (8.5-10.1); CREATINE KINASE 109 Units/L (39-308); CREATINE KINASE MB 1.7 ng/mL (0-4.0); MAGNESIUM 1.9 mg/dL (1.7-2.9); SODIUM 142 mmol/L (136-145); TOTAL PROTEIN 5.7 g/dL (6.4-8.2); TROPONIN I 0.06 ng/mL (0-1.5); eGFR NON BLACK RACES 22 (>60)
[2020-02-04] MEDS ORDERED: MULTIVITAMIN PO SCH (09:00)
[2020-02-04] MEDS ORDERED: PATIENT'S HOME MEDICATION (Nifedipine 90 MG) PO SCH (09:00)
[2020-02-04] MEDS: PEPCID TAB 20 MG PO SCH (09:29)
[2020-02-04] MEDS: PLAVIX PO SCH (09:30)
[2020-02-04] MEDS: TAB-A-VITE PO SCH (09:31)
[2020-02-04] MEDS: FLOMAX PO SCH (09:31)
[2020-02-04] MEDS: PROSCAR PO SCH (09:31)
[2020-02-04] MEDS: PROCARDIA XL PO SCH (09:32)
[2020-02-04] MEDS: PROTONIX TAB 40 MG PO SCH (09:33)
[2020-02-04] MEDS: ASPIRIN EC 81 MG PO SCH (09:33)
[2020-02-04] MEDS: COREG TAB 25 MG PO SCH ×2 (09:33→21:02)
[2020-02-04 11:19] LABS: CKMB % 1.4 % (<4); CREATINE KINASE MB 1.8 ng/mL (0-4.0); TROPONIN I 0.05 ng/mL (0-1.5)
--- NOTE | 2020-02-04 12:48 | DR.H&P ---
H&P - History & Physical for Day of: H&P Date: 02/03/20 - Chief Complaint Chief Complaint: SOB - History of Present Illness History of Present Illness: PATIENT IS 84YR OLD MALE IN ER WITH INCREASING SOB AND CHEST PAIN TIMES 2 DAYS THAT IS WORSE TODAY. NO FEVER. COUGHING, NON PRODUCTIV E AND WHEEZING. SOB GETTING WORSE TODAY. PATIENT DENIES DYSURIA, CONGESTION. HAVE 2 PLUS PERIPHERAL EDEMA. - Past Medical History Past Medical History: Coronary Artery Disease, Hypertension, Dyslipidemia, Diabetes, Renal Disease, Dementia, Anemia, COPD, Arthritis, CHF Additional Medical History: Prostate Cancer, Bronchitis, Constipation, chronic anemia - Past Surgical History Surgical History: CABG/Valve Surgery - Family History Family Medical History: Diabetes Mellitus, Coronary Artery Disease, Heart Failure, Hypertension - Social History Does patient currently use any type of tobacco product: No Have you used tobacco products in the last 12 months: No Type of Tobacco Use: None Does any household member use tobacco: No Alcohol Use: None Drug Use: None - Medications Home Medications: Iodinated Contrast Media Allergy (Verified 09/01/19 09:44) ketorolac [From Toradol] Allergy (Verified 09/01/19 09:44) lisinopril Allergy (Verified 09/01/19 09:44) CONTINUE taking the following medications hydralazine 100 mg PO TID 02/03/20 [History] - Review of Systems Constitutional: Weakness Eyes: No Symptoms Reported ENT: No Symptoms Reported Respiratory: Shortness of Breath Cardiovascular: Edema Gastrointestinal: No Symptoms Reported Genitourinary: No Symptoms Reported Musculoskeletal: No Symptoms Reported Skin: No Symptoms Reported Neurological: Weakness - Physical Exam Vital Signs: Temperature 98.8 F Pulse Rate [Brachial] 66 Pulse Rate 65 Respiratory Rate 20 Blood Pressure [Left Arm] 112/53 Blood Pressure [Right Arm] 174/78 Blood Pressure 184/83 O2 Sat by Pulse Oximetry 96 Oriented: Normal Eyes: Normal Ear: Normal Nose: Normal Throat: Normal Respiratory: RLL Diminished, LLL Diminished Cardiovascular: Murmur : Normal Auscultation: Bowel Sounds: Normal Palpation: Normal Tenderness: Normal Skin: Normal Musculoskeletal: Normal Psychiatric: Anxiety Affect: Anxious Speech Pattern: Clear, Appropriate - Assessment/Plan (1) CHF (congestive heart failure) Qualifiers: Heart failure type: combined systolic and diastolic Heart failure chronicity: acute Qualified Code(s): I50.41 - Acute combined systolic (congestive) and diastolic (congestive) heart failure Status: Acute Plan: ADMIT, SUPPLEMENTAL O2. SERIAL CE, STRICT I&OS. IV LASIX, CARDIAC MONITORING. SERIAL CE AND EKG. VERIFY HOME MEDICATION, BP CONTROL (2) COPD (chronic obstructive pulmonary disease) Qualifiers: COPD type: COPD with acute exacerbation Qualified Code(s): J44.1 - Chronic obstructive pulmonary disease with (acute) exacerbation Status: Acute (3) SOB (shortness of breath) Status: Acute (4) Coronary artery disease Status: Chronic (5) Hypertension Qualifiers: Hypertension type: essential hypertension Qualified Code(s): I10 - Essential (primary) hypertension Status: Chronic (6) CHF exacerbation Status: Acute (7) Accelerated hypertension Status: Chronic - Allergies Allergies/Adverse Reactions: Allergies Allergy/AdvReac Type Severity Reaction Status Date / Time Iodinated Contrast Media Allergy Verified 09/01/19 09:44 ketorolac [From Toradol] Allergy Verified 09/01/19 09:44 lisinopril Allergy Verified 09/01/19 09:44
[2020-02-04] MEDS: LASIX IVP SCH (13:19)
[2020-02-04] MEDS: HEMOCYTE-PLUS PO SCH (13:19)
[2020-02-04 15:09] LABS: ABG BASE EXCESS 4.7 mmol/L (-2.0-2.0); ABG HCO3 29.2 mmol/L (22-26)
[2020-02-04 15:10] LABS: ABG ALLEN TEST POS
[2020-02-05 05:32] LABS: BASOPHILS % (AUTO) 0.9 % (0.2-1.0); EOSINOPHILS # (AUTO) 0.2 x10^3/uL (0.0-0.2); EOSINOPHILS % (AUTO) 4.8 % (0.9-2.9); HEMATOCRIT 25.9 % (42.0-54.0); HEMOGLOBIN 8.8 g/dL (13.5-18.0); LYMPHOCYTES # (AUTO) 0.6 X10^3/uL (1.3-2.9); LYMPHOCYTES % (AUTO) 12.9 % (21.0-51.0); MEAN CORPUSCULAR HEMOGLOBIN 32.7 pg (27.0-34.0); MEAN CORPUSCULAR HGB CONC 33.8 g/dL (33.0-35.0); MEAN CORPUSCULAR VOLUME 96.8 fL (80.0-100.0); MEAN PLATELET VOLUME 9.5 fL (7.4-11.0); MONOCYTES # (AUTO) 0.5 x10^3/uL (0.3-0.8); MONOCYTES % (AUTO) 10.4 % (0.0-13.0); NEUTROPHILS # (AUTO) 3.1 x10^3/uL (2.2-4.8); PLATELET COUNT 122 X10^3/uL (150.0-450.0); RED BLOOD COUNT 2.68 X10^6/uL (4.7-6.0); RED CELL DISTRIBUTION WIDTH 15.8 % (11.6-16.5); WHITE BLOOD COUNT 4.4 X10^3/uL (3.6-10.0)
[2020-02-05 05:34] LABS: ALANINE AMINOTRANSFERASE 37 Units/L (12-78); ALKALINE PHOSPHATASE 52 Units/L (46-116); ASPARTATE AMINO TRANSFERASE 20 Units/L (15-37); BLOOD UREA NITROGEN 42 mg/dL (7-18); CALCIUM 8.6 mg/dL (8.5-10.1); CARBON DIOXIDE 31.3 mmol/L (21-32); CHLORIDE 107 mmol/L (98-107); COR CA(FOR HYPOALB) 9.4 mg/dL (8.5-10.1); CREATININE 2.85 mg/dL (0.70-1.30); SODIUM 143 mmol/L (136-145); TOTAL PROTEIN 5.8 g/dL (6.4-8.2); eGFR NON BLACK RACES 23 (>60)
[2020-02-05] MEDS: APRESOLINE TAB 25 MG PO SCH (05:57)
--- NOTE | 2020-02-05 06:58 | RAD ---
HISTORYCHFSTUDYAP [id number] cardiomegaly with pulmonary vascular congestion. The left diaphragm and costophrenic angle are obscured. There is no evidence for infiltrate or consolidation i n the right lung. No pneumothorax is seen.IMPRESSIONCardiomegaly and pulmonary vascular congestion. D escribed findings at the left base consistent with infiltrate and left pleural effusion.Electronicall y signed by: JUANA LEBRON (Feb 05, 2020 06:56:20)
[2020-02-05] MEDS ORDERED: MICRO K EXTEN CAP 10 MEQ PO SCH (09:00)
[2020-02-05] MEDS: LASIX IVP SCH (09:50)
[2020-02-05] MEDS: TAB-A-VITE PO SCH (09:50)
[2020-02-05] MEDS: PROTONIX TAB 40 MG PO SCH (09:50)
[2020-02-05] MEDS: PROCARDIA XL PO SCH (09:51)
[2020-02-05] MEDS: COREG TAB 25 MG PO SCH (09:52)
[2020-02-05] MEDS: FLOMAX PO SCH (09:52)
[2020-02-05] MEDS: HEMOCYTE-PLUS PO SCH (09:52)
[2020-02-05] MEDS: PEPCID TAB 20 MG PO SCH (09:52)
[2020-02-05] MEDS: PROSCAR PO SCH (09:53)
[2020-02-05] MEDS: PLAVIX PO SCH (09:53)
[2020-02-05] MEDS: ASPIRIN EC 81 MG PO SCH (09:54)
--- NOTE | 2020-02-05 10:52 | W.DIS.FURT ---
Summary of Discharge Discharge Summary of Date Date of Exam: 02/05/20 Admission Date Date of Admission: 02/04/20 Admission Diagnosis Patient Problems (Updated 02/04/20 @ 12:49 by THAI LUCIA) CHF (congestive heart failure) (Acute) I50.9 COPD (chronic obstructive pulmonary disease) (Acute) J44.9 Anemia (Acute) D64.9 SOB (shortness of breath) (Acute) R06.02 Hypertension (Chronic) I10 Coronary artery disease (Chronic) I25.10 Hospital Course: Pt is a 84 yo m pmhx CHF, COPD, HTN, CKD, admitted for CHF exacerbation. Labs/imaging: His cardiac enzymes were negative. CXR:Impression: Cardiomegaly a nd pulmonary vascular congestion. Described findings at the left base consistent with infiltrate and left pleural effusion. Wbc 4.4, Hgb 8.8, Plt 122, Na 143, K 3.6, Cr 2.85, Gluc 93. He received IV Lasix 40mg x 2. On day of discharge he reports significant improvement in his breathing. Edema has decreased. Pt is stable for discharge home, instructed to continue home medications, and follow up with pcp in 1 week. Vital Signs: Vital Signs (72 hours) 02/03/20 20:43 02/03/20 23:55 02/04/20 00:00 Temperature 98.6 F 98.1 F Pulse Rate 65 Pulse Rate [Brachial] 22 L Respiratory Rate 28 H 28 H 22 Blood Pressure 184/83 Blood Pressure [Left Arm] 112/53 Blood Pressure [Right Arm] O2 Sat by Pulse Oximetry 100 98 02/04/20 04:00 02/04/20 08:00 02/04/20 12:00 Temperature 97.7 F 98.8 F 98.5 F Pulse Rate Pulse Rate [Brachial] 52 L 66 59 L Respiratory Rate 20 20 20 Blood Pressure Blood Pressure [Left Arm] Blood Pressure [Right Arm] 200/78 174/78 188/69 O2 Sat by Pulse Oximetry 100 96 95 02/04/20 15:59 02/04/20 20:00 02/05/20 00:00 Temperature 98.5 F 98.1 F 98.0 F Pulse Rate Pulse Rate [Brachial] 60 63 64 Respiratory Rate 20 26 H 24 Blood Pressure Blood Pressure [Left Arm] Blood Pressure [Right Arm] 167/70 168/64 164/72 O2 Sat by Pulse Oximetry 95 95 95 02/05/20 04:00 Temperature 98.4 F Pulse Rate Pulse Rate [Brachial] 63 Respiratory Rate 23 Blood Pressure Blood Pressure [Left Arm] Blood Pressure [Right Arm] 181/69 O2 Sat by Pulse Oximetry 97 Labs: Laboratory Last Values WBC 4.4 X10^3/uL (3.6-10.0) 02/05/20 04:19 RBC 2.68 X10^6/uL (4.7-6.0) L 02/05/20 04:19 Hgb 8.8 g/dL (13.5-18.0) L 02/05/20 04:19 Hct 25.9 % (42.0-54.0) L 02/05/20 04:19 MCV 96.8 fL (80.0-100.0) 02/05/20 04:19 MCH 32.7 pg (27.0-34.0) 02/05/20 04:19 MCHC 33.8 g/dL (33.0-35.0) 02/05/20 04:19 RDW 15.8 % (11.6-16.5) 02/05/20 04:19 Plt Count 122 X10^3/uL (150.0-450.0) L 02/05/20 04:19 MPV 9.5 fL (7.4-11.0) 02/05/20 04:19 Neut % (Auto) 71.0 % (42.0-75.0) 02/05/20 04:19 Lymph % (Auto) 12.9 % (21.0-51.0) L 02/05/20 04:19 [place] % (Auto) 10.4 % (0.0-13.0) 02/05/20 04:19 Eos % (Auto) 4.8 % (0.9-2.9) H 02/05/20 04:19 Baso % (Auto) 0.9 % (0.2-1.0) 02/05/20 04:19 Neut # (Auto) 3.1 x10^3/uL (2.2-4.8) 02/05/20 04:19 Lymph # (Auto) 0.6 X10^3/uL (1.3-2.9) L 02/05/20 04:19 [place] # (Auto) 0.5 x10^3/uL (0.3-0.8) 02/05/20 04:19 Eos # (Auto) 0.2 x10^3/uL (0.0-0.2) 02/05/20 04:19 Baso # (Auto) 0.0 X10^3/uL (0.0-0.1) 02/05/20 04:19 Absolute Nucleated RBC 0.0 /100WBC 02/05/20 04:19 PT 16.0 SECONDS (11.8-14.3) 02/04/20 05:32 INR Target Range - 02/04/20 05:32 INR 1.32 (0.8-1.3) H 02/04/20 05:32 APTT 32.8 SECONDS (22.9-36.5) 02/04/20 05:32 PTT Comment - 02/04/20 05:32 Sample Site Rrad 02/04/20 14:59 ABG pH 7.450 (7.35-7.45) 02/04/20 14:59 ABG pCO2 42.0 mmHg (35.0-45.0) 02/04/20 14:59 ABG pO2 59.0 mmHg (80.0-100.0) L 02/04/20 14:59 ABG HCO3 29.2 mmol/L (22-26) H 02/04/20 14:59 ABG O2 Saturation 91.0 % (90-100) 02/04/20 14:59 ABG Base Excess 4.7 mmol/L (-2.0-2.0) H 02/04/20 14:59 Mitch Test Pos 02/04/20 14:59 A-a Gradient 38.0 mmHg 02/04/20 14:59 FiO2 21.0 02/04/20 14:59 Blood Gas Comments Pt devon well elj 02/04/20 14:59 Sodium 143 mmol/L (136-145) 02/05/20 04:19 Corrected Sodium TNP 02/05/20 04:19 Potassium 3.6 mmol/L (3.5-5.1) 02/05/20 04:19 Chloride 107 mmol/L (98-107) 02/05/20 04:19 Carbon Dioxide 31.3 mmol/L (21-32) 02/05/20 04:19 BUN 42 mg/dL (7-18) H 02/05/20 04:19 Creatinine 2.85 mg/dL (0.70-1.30) H 02/05/20 04:19 Est GFR (MDRD) Af Amer 27 (>60) L 02/05/20 04:19 Est GFR (MDRD) Non-Af 23 (>60) L 02/05/20 04:19 Glucose 93 mg/dL (65-99) 02/05/20 04:19 POC Glucose (mg/dL) 84 mg/dL (65-99) 02/05/20 05:33 Lactic Acid 0.5 mmol/L (0.4-2.0) 02/03/20 21:10 Calcium 8.6 mg/dL (8.5-10.1) 02/05/20 04:19 Corrected Calcium 9.4 mg/dL (8.5-10.1) 02/05/20 04:19 Magnesium 1.9 mg/dL (1.7-2.9) 02/04/20 05:32 Total Bilirubin 0.20 mg/dL (0.2-1.0) 02/05/20 04:19 AST 20 Units/L (15-37) 02/05/20 04:19 ALT 37 Units/L (12-78) 02/05/20 04:19 Alkaline Phosphatase 52 Units/L (46-116) 02/05/20 04:19 Creatine Kinase 126 Units/L (39-308) 02/04/20 10:49 CK-MB (CK-2) 1.8 ng/mL (0-4.0) 02/04/20 10:49 CK/CKMB % Calc 1.4 % (<4) 02/04/20 10:49 Troponin I 0.05 ng/mL (0-1.5) 02/04/20 10:49 B-Natriuretic Peptide 2090 pg/mL (0-79) H* 02/03/20 21:10 Total Protein 5.8 g/dL (6.4-8.2) L 02/05/20 04:19 Albumin 3.0 g/dL (3.4-5.0) L 02/05/20 04:19 Globulin 2.8 g/dL (2.5-4.5) 02/05/20 04:19 Albumin/Globulin Ratio 1.1 Ratio (1.1-2.1) 02/05/20 04:19 Specimen Type Clean catch urine 02/03/20 22:19 Urine Color Pale yellow (YELLOW) 02/03/20 22:19 Urine Appearance Clear (CLEAR) 02/03/20 22:19 Urine pH 6.0 (5.0 - 8.0) 02/03/20 22:19 Ur Specific [place] 1.010 (1.000-1.030) 02/03/20 22:19 Urine Protein 3+ (NEGATIVE) 02/03/20 22:19 Urine Glucose (UA) Negative (NEGATIVE) 02/03/20 22:19 Urine Ketones Negative (NEGATIVE) 02/03/20 22:19 Urine Occult Blood Negative (NEGATIVE) 02/03/20 22:19 Urine Nitrite Negative (NEGATIVE) 02/03/20 22:19 Urine Bilirubin Negative (NEGATIVE) 02/03/20 22:19 Urine Urobilinogen Normal (NORMAL) 02/03/20 22:19 Ur Leukocyte Esterase Negative (NEGATIVE) 02/03/20 22:19 Urine RBC 0-2 /HPF (0-3) 02/03/20 22:19 Urine WBC 0-2 /HPF (0-5) 02/03/20 22:19 Ur Squamous Epith Cells Rare /HPF (NEGATIVE) 02/03/20 22:19 Urine Bacteria Negative /HPF (NEGATIVE) 02/03/20 22:19 Ur Culture Indicated? No/not indicated 02/03/20 22:19 Acetone, Semi-Quant Negative (NEGATIVE) 02/03/20 21:29 SARS-CoV-2 (PCR) Negative (NEGATIVE) 02/03/20 22:47 Reason For Visit: CHF,COPD EXACERBATION,SOB,ANEMIA/PANCYTOPENIA Discharge Date Discharge Date: 02/05/20 Discharge Diagnosis All Active Problems (Updated 02/04/20 @ 12:49 by THAI LUCIA) CHF (congestive heart failure) (Acute) COPD (chronic obstructive pulmonary disease) (Acute) Anemia (Acute) SOB (shortness of breath) (Acute) CHF exacerbation (Acute) Anemia (Chronic) COPD (chronic obstructive pulmonary disease) with acute bronchitis (Chronic) CHF (congestive heart failure) (Chronic) Chronic kidney disease (CKD) stage G4/A1, severely decreased glomerular filtration rate (GFR) between 15-29 mL/min/1.73 square meter and albuminuria creatinine ratio less than 30 mg/g (Chronic) CRF (chronic renal failure) (Chronic) BPH (benign prostatic hyperplasia) (Chronic) Osteoarth NOS-l/leg (Chronic) Hypertension, uncontrolled (Chronic) Cardiomegaly (Chronic) Hypertensive heart disease with CHF (congestive heart failure) (Chronic) Diabetes type 2, controlled (Chronic) CHF (congestive heart failure) (Chronic) Hypertension (Chronic) Accelerated hypertension (Chronic) Hyperlipidemia (Chronic) Coronary artery disease (Chronic) GERD (gastroesophageal reflux disease) (Chronic) Plan of Treatment: Continue with present treatment and follow up plan. Pt is to keep follow up appointment as instructed and take medications as ordered. Discharge Medications Discharge Medications: Iodinated Contrast Media Allergy (Verified 09/01/19 09:44) ketorolac [From Toradol] Allergy (Verified 09/01/19 09:44) lisinopril Allergy (Verified 09/01/19 09:44) CONTINUE taking the following medications hydralazine 100 mg PO TID 02/03/20 [History] Follow up and Referral Follow Up: 1 Week Discharge Disposition Discharge Disposition: Home Discharge Condition: Stable
[2020-02-05 12:31] VITALS: BP 164/90
[2020-02-05] MEDS ORDERED: LIPITOR TAB 40 MG PO SCH (21:00)
[2020-02-05] MEDS ORDERED: COLACE CAP 100 MG PO SCH (21:00)
== END 2020-02-05 12:20 | disposition home health service (06) ==
LOC: MED/SURG 20:41 → ER 20:41 → MED/SURG 23:55
PROVIDERS: ADMIT Family Medicine; ATTEND Internal Medicine
DX: R07.89 Other chest pain; N40.0 Benign prostatic hyperplasia without lower urinary tract symptoms; I25.10 Atherosclerotic heart disease of native coronary artery without angina pectoris; J44.1 Chronic obstructive pulmonary disease with (acute) exacerbation; N18.9 Chronic kidney disease, unspecified; R26.89 Other abnormalities of gait and mobility; Z11.59 Encounter for screening for other viral diseases; R94.31 Abnormal electrocardiogram [ECG] [EKG]; I13.0 Hypertensive heart and chronic kidney disease with heart failure and stage 1 through stage 4 chronic kidney disease, or unspecified chronic kidney disease; I50.41 Acute combined systolic (congestive) and diastolic (congestive) heart failure; D64.89 Other specified anemias; R06.02 Shortness of breath; D61.818 Other pancytopenia
CPT/HCPCS: 36415; 36600; 71010; 71045; 80053; 81001; 82009; 82550; 82553; 82803; 83605; 83735; 83880; 84484; 85025; 85610; 85730; 87040; 87635; 93005; 94760; 96365; 96374; 97162; 97166; 99284; A4216; G0378; J1940; S0138

== ENCOUNTER 2021-08-24 12:58 | Inpatient (IN) ==
--- NOTE | 2021-08-24 13:13 | DR.FEVERAD ---
HPI Time seen Time Seen by Provider: 08/24/21 13:09 Complaints/Symptoms Chief Complaint Doctor Comments: ACCORDING TO DAUGHTER,THE PATIENT IS LETHARGIC AND HAS HEMATURIA AND THEY CAN NO LONGER TAKE CARE OF THEPATIENT. WANTS HIM TO GO BACK ON HOSPICE. HE WAS RELEASED FROM [facility] IN [place] YESTERDAY AFTER HAVING CARDIAC STENT PLACED. PMH PMH Past Medical History: Alzheimers, Angina, Arthritis, CHF, Coronary Artery Disease, Dementia, Diabetes, Hypertension, ID and Renal Disease Past Surgical History: Yes Surgical History: Angioplasty/Stents and CABG/Valve Surgery Family History Family Medical History: Diabetes Mellitus, Coronary Artery Disease, Heart Failure and Hypertension Social History Do you use any recreational Drugs:: No ROS Review of Systems Constitutional: No Symptoms Reported Eyes: No Symptoms Reported ENTM: No Symptoms Reported Respiratoy: No Symptoms Reported Cardiovascular: No Symptoms Reported Gastrointestinal/Abdominal: No Symptoms Reported Genitourinary: No Symptoms Reported Neurological: No Symptoms Reported and Weakness (general weakness) Musculoskeletal: No Symptoms Reported Integumentary: No Symptoms Reported Hematologic/Lymphatic: No Symptoms Reported Endocrine: No Symptoms Reported Psychiatric: No Symptoms Reported All Other Systems: Reviewed and Negative PE Vital Signs Vitals: Temperature 98.5 F Pulse Rate 59 Respiratory Rate 20 Blood Pressure [Left Arm] 118/78 Blood Pressure [Right Arm] 164/90 Blood Pressure [Left Arm] 167/65 Blood Pressure 96/58 O2 Sat by Pulse Oximetry 96 General Limitations: No Limitations General Appearance: Alert, In No Apparent Distress (general lethargy), Lethargic and Other (mild distress) Head Head Exam: Normal Inspection Eyes Eye exam: Normal Appearance ENT ENT Exam: Normal Exam Neck Neck Exam: Normal Inspection Respiratory Respiratory Exam: Normal Lung Sounds Bilat Cardiovascular Cardiovascular Exam: Regular Rate and Normal Rhythm Abdominal Exam Abdominal Exam: Normal Inspection, Normal Bowel Sounds and Soft Extremities Extremities Exam: Normal Inspection Back Back Exam: Normal Inspection Neurologic Neurological Exam: Alert and Oriented X3 Psychiatric Psychiatric Exam: Depressed Skin Skin Exam: Warm, Dry, Intact, Normal Color and Other (poor skin turgor) MDM Additional Information Findings: dehydration,malnutritian,hyponatremia,uti COURSE Treatment Treatment: this patient was given a one liter bolus of nacl for hypotension and hyponatremia. He stated that he wanted something to eat. will consult with Dr Thomas who is the on-call physician for admission for dehydarion,hyptension,mild chf,renal insufficiency and uti. Reevaluation 1st: Improved ROR Labs Reviewed Laboratory Results Reviewed?: Yes Result Diagrams: 08/24/21 13:40 08/24/21 13:40 Laboratory: WBC 6.1 X10^3/uL (3.6-10.0) 08/24/21 13:40 RBC 2.46 X10^6/uL (4.7-6.0) L 08/24/21 13:40 Hgb 8.4 g/dL (13.5-18.0) L 08/24/21 13:40 Hct 24.2 % (42.0-54.0) L 08/24/21 13:40 MCV 98.4 fL (80.0-100.0) 08/24/21 13:40 MCH 34.3 pg (27.0-34.0) H 08/24/21 13:40 MCHC 34.8 g/dL (33.0-35.0) 08/24/21 13:40 RDW 13.8 % (11.6-16.5) 08/24/21 13:40 Plt Count 61 X10^3/uL (150.0-450.0) L 08/24/21 13:40 MPV 8.9 fL (7.4-11.0) 08/24/21 13:40 Neut % (Auto) 80.0 % (42.0-75.0) H 08/24/21 13:40 Lymph % (Auto) 9.3 % (21.0-51.0) L 08/24/21 13:40 [place] % (Auto) 8.5 % (0.0-13.0) 08/24/21 13:40 Eos % (Auto) 1.8 % (0.9-2.9) 08/24/21 13:40 Baso % (Auto) 0.4 % (0.2-1.0) 08/24/21 13:40 Neut # (Auto) 4.9 x10^3/uL (2.2-4.8) H 08/24/21 13:40 Lymph # (Auto) 0.6 X10^3/uL (1.3-2.9) L 08/24/21 13:40 [place] # (Auto) 0.5 x10^3/uL (0.3-0.8) 08/24/21 13:40 Eos # (Auto) 0.1 x10^3/uL (0.0-0.2) 08/24/21 13:40 Baso # (Auto) 0.0 X10^3/uL (0.0-0.1) 08/24/21 13:40 Absolute Nucleated RBC 0.0 /100WBC 08/24/21 13:40 Sodium 131 mmol/L (136-145) L 08/24/21 13:40 Corrected Sodium 132 mmol/L (136-145) L 08/24/21 13:40 Potassium 4.0 mmol/L (3.5-5.1) 08/24/21 13:40 Chloride 98 mmol/L (98-107) 08/24/21 13:40 Carbon Dioxide 27.4 mmol/L (21-32) 08/24/21 13:40 BUN 70 mg/dL (7-18) H 08/24/21 13:40 Creatinine 3.08 mg/dL (0.70-1.30) H 08/24/21 13:40 Est GFR (MDRD) Af Amer 25 (>60) L 08/24/21 13:40 Est GFR (MDRD) Non-Af 21 (>60) L 08/24/21 13:40 Glucose 153 mg/dL (65-99) H 08/24/21 13:40 Calcium 8.7 mg/dL (8.5-10.1) 08/24/21 13:40 Corrected Calcium 9.7 mg/dL (8.5-10.1) 08/24/21 13:40 Total Bilirubin 0.40 mg/dL (0.2-1.0) 08/24/21 13:40 AST 24 Units/L (15-37) 08/24/21 13:40 ALT 41 Units/L (12-78) 08/24/21 13:40 Alkaline Phosphatase 42 Units/L (46-116) L 08/24/21 13:40 B-Natriuretic Peptide 497 pg/mL (0-79) H 08/24/21 13:40 Total Protein 5.6 g/dL (6.4-8.2) L 08/24/21 13:40 Albumin 2.7 g/dL (3.4-5.0) L 08/24/21 13:40 Globulin 2.9 g/dL (2.5-4.5) 08/24/21 13:40 Albumin/Globulin Ratio 0.9 Ratio (1.1-2.1) L 08/24/21 13:40 Specimen Type Catherized urine 08/24/21 14:20 Urine Color Bloody (YELLOW) 08/24/21 14:20 Urine Appearance Cloudy (CLEAR) 08/24/21 14:20 Urine pH 7.0 (5.0 - 8.0) 08/24/21 14:20 Ur Specific [place] 1.010 (1.000-1.030) 08/24/21 14:20 Urine Protein 4+ (NEGATIVE) 08/24/21 14:20 Urine Glucose (UA) Negative (NEGATIVE) 08/24/21 14:20 Urine Ketones Negative (NEGATIVE) 08/24/21 14:20 Urine Occult Blood 5+ (NEGATIVE) 08/24/21 14:20 Urine Nitrite Negative (NEGATIVE) 08/24/21 14:20 Urine Bilirubin Negative (NEGATIVE) 08/24/21 14:20 Urine Urobilinogen Normal (NORMAL) 08/24/21 14:20 Ur Leukocyte Esterase 3+ (NEGATIVE) 08/24/21 14:20 Urine RBC Tntc /HPF (0-3) A 08/24/21 14:20 Urine WBC Tntc /HPF (0-5) A 08/24/21 14:20 Ur Squamous Epith Cells Rare /HPF (NEGATIVE) 08/24/21 14:20 Urine Bacteria 3+ /HPF (NEGATIVE) 08/24/21 14:20 Ur Culture Indicated? Yes/culture set up 08/24/21 14:20 SARS CoV-2 RNA Rapid IVETH Negative (NEGATIVE) 08/24/21 15:33 Other Results Comments: patient has chronic anemia and renal insufficiency and labs show this. He also has a uti by urinanalysis, XRAY XRAY Interpreted by: Radiologist (chest xray showed no acute intrathoracic abnormality.) Opioid Opioid Risk Tool Age ([place] if 16-45): No History of Preadolescent Sexual Abuse: No Total: 0 Total Score Risk Category: Low Risk Copyright: Leandro SANCHEZ predicting aberrant behaviors Diagnosis Discharge Problem: Dehydration with hyponatremia CHF (congestive heart failure) Qualifiers: Heart failure type: unspecified Heart failure chronicity: chronic Qualified Code(s): I50.9 - Heart failure, unspecified Urinary tract infection associated with indwelling urethral catheter Qualifiers: Encounter type: initial encounter Qualified Code(s): T83.511A - Infection and inflammatory reaction due to indwelling urethral catheter, initial encounter Chronic renal insufficiency Qualifiers: Chronic kidney disease stage: unspecified stage Qualified Code(s): N18.9 - Chronic kidney disease, unspecified Instructions Forms: Precautions for COVID19 [facility] Social Distancing
[2021-08-24] MEDS ORDERED: NS 1,000 ML IV 1,000 ML IV ONE (13:40)
[2021-08-24] MEDS ORDERED: NS 1,000 ML IV 1,000 ML ONE (13:46)
[2021-08-24 13:49] LABS: BASOPHILS % (AUTO) 0.4 % (0.2-1.0); EOSINOPHILS # (AUTO) 0.1 x10^3/uL (0.0-0.2); EOSINOPHILS % (AUTO) 1.8 % (0.9-2.9); HEMATOCRIT 24.2 % (42.0-54.0); HEMOGLOBIN 8.4 g/dL (13.5-18.0); LYMPHOCYTES # (AUTO) 0.6 X10^3/uL (1.3-2.9); LYMPHOCYTES % (AUTO) 9.3 % (21.0-51.0); MEAN CORPUSCULAR HEMOGLOBIN 34.3 pg (27.0-34.0); MEAN CORPUSCULAR HGB CONC 34.8 g/dL (33.0-35.0); MEAN CORPUSCULAR VOLUME 98.4 fL (80.0-100.0); MEAN PLATELET VOLUME 8.9 fL (7.4-11.0); MONOCYTES # (AUTO) 0.5 x10^3/uL (0.3-0.8); MONOCYTES % (AUTO) 8.5 % (0.0-13.0); NEUTROPHILS # (AUTO) 4.9 x10^3/uL (2.2-4.8); PLATELET COUNT 61 X10^3/uL (150.0-450.0); RED BLOOD COUNT 2.46 X10^6/uL (4.7-6.0); RED CELL DISTRIBUTION WIDTH 13.8 % (11.6-16.5); WHITE BLOOD COUNT 6.1 X10^3/uL (3.6-10.0)
[2021-08-24 14:01] LABS: ALBUMIN 2.7 g/dL (3.4-5.0); CALCIUM 8.7 mg/dL (8.5-10.1); CARBON DIOXIDE 27.4 mmol/L (21-32); COR CA(FOR HYPOALB) 9.7 mg/dL (8.5-10.1); CREATININE 3.08 mg/dL (0.70-1.30); TOTAL PROTEIN 5.6 g/dL (6.4-8.2)
[2021-08-24 14:38] LABS: BILIRUBIN,URINE NEGATIVE (NEGATIVE); BLOOD/HEMOGLOBIN,URINE 5+ (NEGATIVE); GLUCOSE, URINE NEGATIVE (NEGATIVE); KETONES,URINE NEGATIVE (NEGATIVE); LEUKOCYTE ESTERASE ,URINE 3+ (NEGATIVE); NITRITES,URINE NEGATIVE (NEGATIVE); PROTEIN,URINE 4+ (NEGATIVE); UROBILINOGEN,URINE NORMAL (NORMAL)
[2021-08-24 14:43] LABS: APPEARANCE,URINE CLOUDY (CLEAR); COLOR,URINE BLOODY (YELLOW)
[2021-08-24 14:44] LABS: BACTERIA,URINE 3+ /HPF (NEGATIVE); RBC,URINE TNTC /HPF (0-3); SQUAMOUS EPITHELIAL CELL,UR RARE /HPF (NEGATIVE)
--- NOTE | 2021-08-24 15:02 | RAD ---
HISTORYLETHARGYSTUDYCHEST, 1 VIEWCOMPARISONDecember 2020TECHNIQUEChest x-ray single viewFINDINGSNo infiltrates, edema or pleural fluid collections. Stable size and morphology of the cardiac silhouette with postoperative changes of cardiac bypass surgery, TAVR, and cardioverter-defibrillator placement. There is no free air or pneumothorax. No acute osseous abnormalities are demonstrated.IMPRESSIONNo acute radiographic abnormalities of the chestElectronically signed by: ALLAN MATHEW (Aug 24, 2021 15:00:01)
[2021-08-24] MEDS: ROCEPHIN 1 GRAM IV PREMIX 1 G/50 ML IV.SOLN. IV SCH (17:20)
[2021-08-24] MEDS: NS 1,000 ML IV 1,000 ML IV SCH (17:58)
[2021-08-24] MEDS: VISTARIL PO PRN (22:30)
[2021-08-25 05:49] LABS: BASOPHILS % (AUTO) 0.5 % (0.2-1.0); EOSINOPHILS # (AUTO) 0.1 x10^3/uL (0.0-0.2); EOSINOPHILS % (AUTO) 1.4 % (0.9-2.9); HEMATOCRIT 25.1 % (42.0-54.0); HEMOGLOBIN 8.7 g/dL (13.5-18.0); LYMPHOCYTES # (AUTO) 0.3 X10^3/uL (1.3-2.9); LYMPHOCYTES % (AUTO) 4.3 % (21.0-51.0); MEAN CORPUSCULAR HEMOGLOBIN 34.2 pg (27.0-34.0); MEAN CORPUSCULAR HGB CONC 34.8 g/dL (33.0-35.0); MEAN CORPUSCULAR VOLUME 98.4 fL (80.0-100.0); MEAN PLATELET VOLUME 10.1 fL (7.4-11.0); MONOCYTES # (AUTO) 0.4 x10^3/uL (0.3-0.8); MONOCYTES % (AUTO) 5.7 % (0.0-13.0); NEUTROPHILS # (AUTO) 6.3 x10^3/uL (2.2-4.8); NEUTROPHILS % (AUTO) 88.1 % (42.0-75.0); PLATELET COUNT 69 X10^3/uL (150.0-450.0); RED BLOOD COUNT 2.55 X10^6/uL (4.7-6.0); RED CELL DISTRIBUTION WIDTH 14.2 % (11.6-16.5); WHITE BLOOD COUNT 7.2 X10^3/uL (3.6-10.0)
[2021-08-25 05:56] LABS: CALCIUM 8.8 mg/dL (8.5-10.1); CARBON DIOXIDE 23.8 mmol/L (21-32); COR CA(FOR HYPOALB) 9.6 mg/dL (8.5-10.1); CREATININE 2.84 mg/dL (0.70-1.30)
[2021-08-25] MEDS: NS 1,000 ML IV 1,000 ML IV SCH ×2 (06:16→21:52)
[2021-08-25] MEDS: ROCEPHIN 1 GRAM IV PREMIX 1 G/50 ML IV.SOLN. IV SCH (08:20)
[2021-08-25] MEDS ORDERED: ANTIVERT TAB 25 MG PO PRN (09:57)
[2021-08-25] MEDS ORDERED: FOLIC ACID 400 MCG PO SCH (10:00)
[2021-08-25] MEDS ORDERED: LEXAPRO ONE (10:31)
[2021-08-25] MEDS: FLOMAX PO SCH (10:34)
[2021-08-25] MEDS: COREG TAB 25 MG PO SCH ×2 (10:34→21:15)
[2021-08-25] MEDS: MICRO K EXTEN CAP 10 MEQ PO SCH (10:35)
[2021-08-25] MEDS: LEXAPRO PO SCH (10:35)
[2021-08-25] MEDS: PROSCAR PO SCH (10:36)
[2021-08-25] MEDS: PROTONIX TAB 40 MG PO SCH (10:37)
[2021-08-25] MEDS: ISOSORBIDE MONONITRATE ER 24-HR PO SCH (10:37)
[2021-08-25 15:03] VITALS: BMI 16.5
[2021-08-25] MEDS ORDERED: MELATONIN 3 MG PO SCH (21:00)
[2021-08-25] MEDS: LIPITOR TAB 80 MG PO SCH (21:30)
[2021-08-26 04:45] LABS: BASOPHILS % (AUTO) 0.4 % (0.2-1.0); EOSINOPHILS % (AUTO) 0.7 % (0.9-2.9); HEMATOCRIT 24.1 % (42.0-54.0); HEMOGLOBIN 8.3 g/dL (13.5-18.0); LYMPHOCYTES # (AUTO) 0.4 X10^3/uL (1.3-2.9); LYMPHOCYTES % (AUTO) 5.4 % (21.0-51.0); MEAN CORPUSCULAR HEMOGLOBIN 34.1 pg (27.0-34.0); MEAN CORPUSCULAR HGB CONC 34.4 g/dL (33.0-35.0); MEAN PLATELET VOLUME 9.6 fL (7.4-11.0); MONOCYTES # (AUTO) 0.4 x10^3/uL (0.3-0.8); MONOCYTES % (AUTO) 6.3 % (0.0-13.0); NEUTROPHILS # (AUTO) 5.8 x10^3/uL (2.2-4.8); NEUTROPHILS % (AUTO) 87.2 % (42.0-75.0); PLATELET COUNT 79 X10^3/uL (150.0-450.0); RED BLOOD COUNT 2.44 X10^6/uL (4.7-6.0); RED CELL DISTRIBUTION WIDTH 14.3 % (11.6-16.5); WHITE BLOOD COUNT 6.6 X10^3/uL (3.6-10.0)
[2021-08-26 05:00] LABS: ALBUMIN 2.9 g/dL (3.4-5.0); CALCIUM 9.1 mg/dL (8.5-10.1); CARBON DIOXIDE 23.3 mmol/L (21-32); CREATININE 3.05 mg/dL (0.70-1.30); TOTAL PROTEIN 5.8 g/dL (6.4-8.2)
[2021-08-26] MEDS ORDERED: LEXAPRO ONE (08:22)
[2021-08-26] MEDS: COREG TAB 25 MG PO SCH ×2 (08:57→21:10)
[2021-08-26] MEDS: LEXAPRO PO SCH (08:57)
[2021-08-26] MEDS: FERROUS GLUCONATE PO SCH (08:57)
[2021-08-26] MEDS: ISOSORBIDE MONONITRATE ER 24-HR PO SCH (08:57)
[2021-08-26] MEDS: FLOMAX PO SCH (08:57)
[2021-08-26] MEDS: MICRO K EXTEN CAP 10 MEQ PO SCH (08:58)
[2021-08-26] MEDS: PROSCAR PO SCH (08:58)
[2021-08-26] MEDS: NORVASC TAB 5 MG PO SCH (08:58)
[2021-08-26] MEDS: PROTONIX TAB 40 MG PO SCH (08:58)
[2021-08-26] MEDS: ROCEPHIN 1 GRAM IV PREMIX 1 G/50 ML IV.SOLN. IV SCH (08:59)
[2021-08-26] MEDS: NS 1,000 ML IV 1,000 ML IV SCH ×3 (08:59→22:31)
[2021-08-26] MEDS ORDERED: LEVEMIR SC SCH (09:00)
--- NOTE | 2021-08-26 09:34 | DR.H&P ---
H&P - History & Physical for Day of: H&P Date: 08/24/21 - Chief Complaint Chief Complaint: BLOOD IN URINE, WEAKNESS - History of Present Illness History of Present Illness: IS A 86 YEAR OLD PATIENT OF . PATIENT WAS REPORTEDLY RELEASED FROM [facility] IN [place], [place] ON 08/23 FOLLOWING PLACEMENT OF CARDIAC STENT. PATIENTS DAUGHTER BROUGHT HIM TO THE ER ON 08/24 REPORTING THAT PATIENT HAS BEEN WEAK, LETHARGIC AND HAS BLOOD IN TALBOT CATHETER. DAUGHTER REPORTS THAT FAMILY IS HAVING A DIFFICULT TIME CARING FOR PATIENT AND THEY WISH FOR HIM TO BE PLACED BACK UNDER HOSPICE CARE. PATIENTS PMH INCLUDES ALZHEIMERS, ANGINA, ARTHRITIS, CHF, CAD, DEMENTIA, DM II, HTN, MN, RENAL DISEASE, CARDIAC STENTS, CABG. UPON EXAMINATION, PATIENT RESPONDED VERBALLY, HE WAS ALERT AND ORIENTED X 3. ON ARRIVAL, HIS VITALS WERE 98. 5-65-20-98%-117/69. LABS WERE OBTAINED. ABNORMAL LAB VALUES INCLUDE THE FOLLOWING: RBC 2.46, HGB 8.4, HCT 24.2, PLT COUNT 61, SODIUM 131, BUN 70, CREATININE 3.08, GLUCOSE 153, ALK PHOS 42, BNP 497, TOTAL PROTEIN 5.6, ALBUMIN 2.7. URINALYSIS OBTAINED AND REVEALED: WBC TNTC, RBC TNTC, LEUKOCYTES 3+, BACTERIA 3+, OCCULT BLOOD 5+. URINE CULTURE WAS SET UP. COVID-19 NEGATIVE. A CHEST XRAY WAS OBTAINED AND REVEALED: No acute radiographic abnormalities of the chest. EKG WAS OBTAINED AND REVEALED: VENTRICULAR PACED COMPLEXES, HR 66. IN THE ER, HE WAS GIVEN A NORMAL SALINE BOLUS. HE WAS ADMITTED FOR FURTHER EVALUATION AND TREATMENT OF DEHYDRATION, UTI, MILD CHF, ANEMIA, AND HYPONATREMIA. HE WAS STARTED ON NORMAL SALINE AT 80 ML/HR, ROCEPHIN 1G IV DAILY. WE WILL REVIEW HIS HOME MEDICATIONS AND RESUME APPROPRIATE. OTHERWISE, WE PLAN TO FOLLOW UP WITH AM LABS AND CONTINUE TO MONITOR. TIME SPENT ON CLINICAL ASSESSMENT, REVIEWING LABS AND IMAGING, DECISION MAKING, AND DOCUMENTATION GREATER THAN 75 MINUTES. - Past Medical History Past Medical History: Angina, MN, Coronary Artery Disease, Hypertension, Diabetes, Renal Disease, Alzheimers, Dementia, Arthritis, CHF Additional Medical History: Prostate Cancer, Bronchitis, Constipation, chronic anemia - Past Surgical History Surgical History: Angioplasty/Stents, CABG/Valve Surgery - Family History Family Medical History: Diabetes Mellitus, Coronary Artery Disease, Heart Failure, Hypertension - Social History Does patient currently use any type of tobacco product: No Have you used tobacco products in the last 12 months: No Type of Tobacco Use: None Does any household member use tobacco: No Alcohol Use: None Drug Use: None - Medications Home Medications: Iodinated Contrast Media Allergy (Verified 08/24/21 16:31) ketorolac [From Toradol] Allergy (Verified 08/24/21 16:31) lisinopril Allergy (Verified 08/24/21 16:31) CONTINUE taking the following medications aspirin [Aspir-81] 81 mg PO DAILY 08/24/21 [History] clopidogrel [Plavix] 75 mg PO DAILY 08/24/21 [History] insulin detemir U-100 [Levemir Flexpen] 10 unit SUBCUT DAILY 08/24/21 [History] melatonin 3 mg PO DAILY 08/24/21 [History] - Review of Systems Constitutional: Weakness Eyes: No Symptoms Reported ENT: No Symptoms Reported Respiratory: No Symptoms Reported Cardiovascular: No Symptoms Reported Gastrointestinal: No Symptoms Reported Genitourinary: Hematuria Musculoskeletal: No Symptoms Reported Skin: No Symptoms Reported Neurological: Weakness - Physical Exam Vital Signs: Temperature 97.8 F Pulse Rate [Right Radial] 67 Pulse Rate 66 Respiratory Rate 19 Blood Pressure [Left Arm] 158/87 Blood Pressure [Right Arm] 164/90 Blood Pressure [Left Arm] 167/65 Blood Pressure 102/62 O2 Sat by Pulse Oximetry 100 Oriented: Normal Eyes: Normal Ear: Normal Nose: Normal Throat: Normal Respiratory: Diminished Throughout Cardiovascular: Normal : Hematuria, Other (TALBOT CATHETER) Auscultation: Bowel Sounds: Normal Palpation: Normal Tenderness: Normal Skin: Normal Musculoskeletal: Normal Psychiatric: Normal Mood Description: Calm Affect: Normal Speech Pattern: Clear - Assessment/Plan (1) Acute dehydration Status: Acute Plan: ADMIT, NORMAL SALINE AT 80 ML/HR, ROCEPHIN 1G IV DAILY. REVIEW HOME MEDICATIONS (2) Urinary tract infection Qualifiers: Urinary tract infection type: acute cystitis Hematuria presence: with hematuria Qualified Code(s): N30.01 - Acute cystitis with hematuria Status: Acute (3) Anemia Qualifiers: Anemia type: unspecified type Qualified Code(s): D64.9 - Anemia, unspecified Status: Acute (4) Hyponatremia Status: Acute (5) CHF (congestive heart failure) Qualifiers: Heart failure type: unspecified Heart failure chronicity: chronic Qualified Code(s): I50.9 - Heart failure, unspecified Status: Acute - Allergies Allergies/Adverse Reactions: Allergies Allergy/AdvReac Type Severity Reaction Status Date / Time Iodinated Contrast Media Allergy Verified 08/24/21 16:31 ketorolac [From Toradol] Allergy Verified 08/24/21 16:31 lisinopril Allergy Verified 08/24/21 16:31
[2021-08-26] MEDS: BUMEX TAB 1 MG PO SCH (09:43)
[2021-08-26] MEDS: ASPIRIN 81 MG CHEWTAB PO SCH (09:43)
[2021-08-26] MEDS: PLAVIX PO SCH (09:43)
[2021-08-26] MEDS ORDERED: ALDACTONE TAB 25 MG PO SCH (10:00)
[2021-08-26] MEDS ORDERED: D50W ABBOJECT SYR IV ONE (16:40)
[2021-08-26] MEDS ORDERED: D50W ABBOJECT SYR ONE (16:45)
[2021-08-26] MEDS: MELATONIN PO SCH (21:10)
[2021-08-26] MEDS: LIPITOR TAB 80 MG PO SCH (21:10)
[2021-08-27 05:12] LABS: BASOPHILS % (AUTO) 0.2 % (0.2-1.0); EOSINOPHILS % (AUTO) 0.5 % (0.9-2.9); HEMATOCRIT 23.1 % (42.0-54.0); LYMPHOCYTES # (AUTO) 0.3 X10^3/uL (1.3-2.9); LYMPHOCYTES % (AUTO) 4.5 % (21.0-51.0); MEAN CORPUSCULAR HEMOGLOBIN 34.1 pg (27.0-34.0); MEAN CORPUSCULAR HGB CONC 34.5 g/dL (33.0-35.0); MEAN CORPUSCULAR VOLUME 98.9 fL (80.0-100.0); MEAN PLATELET VOLUME 9.9 fL (7.4-11.0); MONOCYTES # (AUTO) 0.6 x10^3/uL (0.3-0.8); MONOCYTES % (AUTO) 7.5 % (0.0-13.0); NEUTROPHILS # (AUTO) 6.5 x10^3/uL (2.2-4.8); NEUTROPHILS % (AUTO) 87.3 % (42.0-75.0); PLATELET COUNT 88 X10^3/uL (150.0-450.0); RED BLOOD COUNT 2.34 X10^6/uL (4.7-6.0); RED CELL DISTRIBUTION WIDTH 14.6 % (11.6-16.5); WHITE BLOOD COUNT 7.5 X10^3/uL (3.6-10.0)
[2021-08-27 05:48] LABS: ALANINE AMINOTRANSFERASE 32 Units/L (12-78); ALBUMIN 2.7 g/dL (3.4-5.0); ALKALINE PHOSPHATASE 37 Units/L (46-116); ASPARTATE AMINO TRANSFERASE 20 Units/L (15-37); BLOOD UREA NITROGEN 62 mg/dL (7-18); CALCIUM 8.6 mg/dL (8.5-10.1); CARBON DIOXIDE 20.1 mmol/L (21-32); CHLORIDE 106 mmol/L (98-107); COR CA(FOR HYPOALB) 9.6 mg/dL (8.5-10.1); SODIUM 138 mmol/L (136-145); TOTAL PROTEIN 5.4 g/dL (6.4-8.2); eGFR NON BLACK RACES 18 (>60)
[2021-08-27] MEDS ORDERED: LEXAPRO ONE (08:06)
[2021-08-27] MEDS: BUMEX TAB 1 MG PO SCH (09:26)
[2021-08-27] MEDS: FERROUS GLUCONATE PO SCH (09:26)
[2021-08-27] MEDS: COREG TAB 25 MG PO SCH ×2 (09:26→20:58)
[2021-08-27] MEDS: ASPIRIN 81 MG CHEWTAB PO SCH (09:26)
[2021-08-27] MEDS: LEXAPRO PO SCH (09:31)
[2021-08-27] MEDS: FLOMAX PO SCH (09:31)
[2021-08-27] MEDS: ISOSORBIDE MONONITRATE ER 24-HR PO SCH (09:31)
[2021-08-27] MEDS: MICRO K EXTEN CAP 10 MEQ PO SCH (09:32)
[2021-08-27] MEDS: NORVASC TAB 5 MG PO SCH (09:32)
[2021-08-27] MEDS: PLAVIX PO SCH (09:32)
[2021-08-27] MEDS: ROCEPHIN 1 GRAM IV PREMIX 1 G/50 ML IV.SOLN. IV SCH (09:33)
[2021-08-27] MEDS: PROTONIX TAB 40 MG PO SCH (09:33)
[2021-08-27] MEDS: PROSCAR PO SCH (09:33)
[2021-08-27] MEDS: NS 1,000 ML IV 1,000 ML IV SCH (13:13)
[2021-08-27] MEDS: LIPITOR TAB 80 MG PO SCH (20:58)
[2021-08-27] MEDS: MELATONIN PO SCH (20:58)
[2021-08-28] MEDS: NS 1,000 ML IV 1,000 ML IV SCH ×3 (00:23→18:02)
[2021-08-28 05:20] LABS: BASOPHILS % (AUTO) 0.4 % (0.2-1.0); EOSINOPHILS # (AUTO) 0.1 x10^3/uL (0.0-0.2); EOSINOPHILS % (AUTO) 0.9 % (0.9-2.9); HEMOGLOBIN 7.9 g/dL (13.5-18.0); LYMPHOCYTES # (AUTO) 0.3 X10^3/uL (1.3-2.9); MEAN CORPUSCULAR HEMOGLOBIN 34.3 pg (27.0-34.0); MEAN CORPUSCULAR HGB CONC 34.3 g/dL (33.0-35.0); MEAN PLATELET VOLUME 9.5 fL (7.4-11.0); MONOCYTES # (AUTO) 0.7 x10^3/uL (0.3-0.8); NEUTROPHILS # (AUTO) 6.4 x10^3/uL (2.2-4.8); NEUTROPHILS % (AUTO) 85.7 % (42.0-75.0); PLATELET COUNT 82 X10^3/uL (150.0-450.0); RED CELL DISTRIBUTION WIDTH 14.4 % (11.6-16.5); WHITE BLOOD COUNT 7.4 X10^3/uL (3.6-10.0)
[2021-08-28 05:35] LABS: ALBUMIN 2.5 g/dL (3.4-5.0); CALCIUM 8.2 mg/dL (8.5-10.1); CARBON DIOXIDE 19.8 mmol/L (21-32); COR CA(FOR HYPOALB) 9.4 mg/dL (8.5-10.1); CREATININE 3.98 mg/dL (0.70-1.30); TOTAL PROTEIN 5.2 g/dL (6.4-8.2)
[2021-08-28] MEDS ORDERED: LEXAPRO ONE (09:18)
[2021-08-28] MEDS: ASPIRIN 81 MG CHEWTAB PO SCH (09:26)
[2021-08-28] MEDS: BUMEX TAB 1 MG PO SCH (09:27)
[2021-08-28] MEDS: COREG TAB 25 MG PO SCH ×2 (09:27→21:48)
[2021-08-28] MEDS: FERROUS GLUCONATE PO SCH (09:27)
[2021-08-28] MEDS: LEXAPRO PO SCH (09:28)
[2021-08-28] MEDS: FLOMAX PO SCH (09:28)
[2021-08-28] MEDS: ISOSORBIDE MONONITRATE ER 24-HR PO SCH (09:28)
[2021-08-28] MEDS: NORVASC TAB 5 MG PO SCH (09:29)
[2021-08-28] MEDS: PROSCAR PO SCH (09:30)
[2021-08-28] MEDS: ROCEPHIN 1 GRAM IV PREMIX 1 G/50 ML IV.SOLN. IV SCH (09:30)
[2021-08-28] MEDS: PROTONIX TAB 40 MG PO SCH (09:30)
[2021-08-28] MEDS: PLAVIX PO SCH (10:00)
[2021-08-28] MEDS: MICRO K EXTEN CAP 10 MEQ PO SCH (11:44)
--- NOTE | 2021-08-28 12:13 | PCM.PROG ---
Progress Note - Subjective Subjective: Patient is a 86 year old AAM who was admitted as per HPI. Family reports they are unable to care for patient at home and will not be able to take him back home. Patient is alert but confused at baseline. PT has attempted to work with patient; due to mentation patient is not receptive and does not understand. Patient cannot ambulate or get out of bed. - Past Medical Family Social History Past Med/Fam/Surg Hx: No changes since H&P Allergies: Allergies Iodinated Contrast Media Allergy (Verified 08/24/21 16:31) ketorolac [From Toradol] Allergy (Verified 08/24/21 16:31) lisinopril Allergy (Verified 08/24/21 16:31) - Review of Systems ROS: No change since H&P - Vital Signs and I&O's Vital Signs: Temperature 98.6 F Pulse Rate [Right Radial] 81 Pulse Rate 66 Respiratory Rate 18 Blood Pressure [Left Arm] 119/73 Blood Pressure [Right Arm] 164/90 Blood Pressure [Left Arm] 167/65 Blood Pressure 102/62 O2 Sat by Pulse Oximetry 100 Intake and Output: Intake & Output 08/25/21 08/26/21 08/27/21 08/28/21 23:59 23:59 23:59 23:59 Intake Total 2612 / 2612 3240 / 3240 3119 / 3119 1166 / 1166 Output Total 625 / 625 725 / 725 375 / 375 250 / 250 Balance 1986 / 1986 2515 / 2515 2744 / 2744 916 / 916 - Physical Exam Oriented: Not Oriented Eyes: Normal Ear: Normal Nose: Normal Throat: Normal Respiratory: Normal Cardiovascular: Normal : Hematuria, Other (TALBOT CATHETER; hematuria resolved) Auscultation: Bowel Sounds: Normal Palpation: Normal Tenderness: Normal Skin: Normal Musculoskeletal: Normal, Instability (Not ambulatory; generalized weakness) Psychiatric: Normal Mood Description: Flat Affect: Flat Speech Pattern: Clear, Inappropriate - Laboratory and Diagnostics Result Diagrams: 08/28/21 04:45 08/28/21 04:45 Labs: 08/24/21 14:20 Urine,Catheterized Urine Culture - Final Laboratory WBC 7.4 X10^3/uL (3.6-10.0) 08/28/21 04:45 RBC 2.30 X10^6/uL (4.7-6.0) L 08/28/21 04:45 Hgb 7.9 g/dL (13.5-18.0) L 08/28/21 04:45 Hct 23.0 % (42.0-54.0) L 08/28/21 04:45 MCV 100.0 fL (80.0-100.0) 08/28/21 04:45 MCH 34.3 pg (27.0-34.0) H 08/28/21 04:45 MCHC 34.3 g/dL (33.0-35.0) 08/28/21 04:45 RDW 14.4 % (11.6-16.5) 08/28/21 04:45 Plt Count 82 X10^3/uL (150.0-450.0) L 08/28/21 04:45 MPV 9.5 fL (7.4-11.0) 08/28/21 04:45 Neut % (Auto) 85.7 % (42.0-75.0) H 08/28/21 04:45 Lymph % (Auto) 4.0 % (21.0-51.0) L 08/28/21 04:45 [place] % (Auto) 9.0 % (0.0-13.0) 08/28/21 04:45 Eos % (Auto) 0.9 % (0.9-2.9) 08/28/21 04:45 Baso % (Auto) 0.4 % (0.2-1.0) 08/28/21 04:45 Neut # (Auto) 6.4 x10^3/uL (2.2-4.8) H 08/28/21 04:45 Lymph # (Auto) 0.3 X10^3/uL (1.3-2.9) L 08/28/21 04:45 [place] # (Auto) 0.7 x10^3/uL (0.3-0.8) 08/28/21 04:45 Eos # (Auto) 0.1 x10^3/uL (0.0-0.2) 08/28/21 04:45 Baso # (Auto) 0.0 X10^3/uL (0.0-0.1) 08/28/21 04:45 Absolute Nucleated RBC 0.0 /100WBC 08/28/21 04:45 Sodium 138 mmol/L (136-145) 08/28/21 04:45 Corrected Sodium 139 mmol/L (136-145) 08/28/21 04:45 Potassium 4.0 mmol/L (3.5-5.1) 08/28/21 04:45 Chloride 108 mmol/L (98-107) H 08/28/21 04:45 Carbon Dioxide 19.8 mmol/L (21-32) L 08/28/21 04:45 BUN 62 mg/dL (7-18) H 08/28/21 04:45 Creatinine 3.98 mg/dL (0.70-1.30) H 08/28/21 04:45 Est GFR (MDRD) Af Amer 19 (>60) L 08/28/21 04:45 Est GFR (MDRD) Non-Af 15 (>60) L 08/28/21 04:45 Glucose 149 mg/dL (65-99) H 08/28/21 04:45 POC Glucose (mg/dL) 153 mg/dL (65-99) H 08/28/21 11:31 Calcium 8.2 mg/dL (8.5-10.1) L 08/28/21 04:45 Corrected Calcium 9.4 mg/dL (8.5-10.1) 08/28/21 04:45 Total Bilirubin 0.40 mg/dL (0.2-1.0) 08/28/21 04:45 AST 20 Units/L (15-37) 08/28/21 04:45 ALT 27 Units/L (12-78) 08/28/21 04:45 Alkaline Phosphatase 40 Units/L (46-116) L 08/28/21 04:45 B-Natriuretic Peptide 374 pg/mL (0-79) H 08/28/21 04:45 Total Protein 5.2 g/dL (6.4-8.2) L 08/28/21 04:45 Albumin 2.5 g/dL (3.4-5.0) L 08/28/21 04:45 Globulin 2.7 g/dL (2.5-4.5) 08/28/21 04:45 Albumin/Globulin Ratio 0.9 Ratio (1.1-2.1) L 08/28/21 04:45 Specimen Type Catherized urine 08/24/21 14:20 Urine Color Bloody (YELLOW) 08/24/21 14:20 Urine Appearance Cloudy (CLEAR) 08/24/21 14:20 Urine pH 7.0 (5.0 - 8.0) 08/24/21 14:20 Ur Specific [place] 1.010 (1.000-1.030) 08/24/21 14:20 Urine Protein 4+ (NEGATIVE) 08/24/21 14:20 Urine Glucose (UA) Negative (NEGATIVE) 08/24/21 14:20 Urine Ketones Negative (NEGATIVE) 08/24/21 14:20 Urine Occult Blood 5+ (NEGATIVE) 08/24/21 14:20 Urine Nitrite Negative (NEGATIVE) 08/24/21 14:20 Urine Bilirubin Negative (NEGATIVE) 08/24/21 14:20 Urine Urobilinogen Normal (NORMAL) 08/24/21 14:20 Ur Leukocyte Esterase 3+ (NEGATIVE) 08/24/21 14:20 Urine RBC Tntc /HPF (0-3) A 08/24/21 14:20 Urine WBC Tntc /HPF (0-5) A 08/24/21 14:20 Ur Squamous Epith Cells Rare /HPF (NEGATIVE) 08/24/21 14:20 Urine Bacteria 3+ /HPF (NEGATIVE) 08/24/21 14:20 Ur Culture Indicated? Yes/culture set up 08/24/21 14:20 SARS CoV-2 RNA Rapid IVETH Negative (NEGATIVE) 08/24/21 15:33 - Plan (1) Acute dehydration Status: Acute Plan: No major improvement in labs with IV fluids. IV fluids to KVO (2) CHF (congestive heart failure) Status: Acute Qualifiers: Heart failure type: unspecified Heart failure chronicity: chronic Qualified Code(s): I50.9 - Heart failure, unspecified (3) Anemia Status: Acute Qualifiers: Anemia type: unspecified type Qualified Code(s): D64.9 - Anemia, unspecified (4) SOB (shortness of breath) Status: Acute Plan: CXR in am (5) Chronic kidney disease (CKD) Status: Chronic Qualifiers: Chronic kidney disease stage: unspecified stage Qualified Code(s): N18.9 - Chronic kidney disease, unspecified Plan: Follow labs (6) Altered mental status Status: Acute Qualifiers: Altered mental status type: transient alteration of awareness Qualified Code(s): R40.4 - Transient alteration of awareness Plan: CT head wo pending (7) Weakness generalized Status: Acute Plan: PT (8) Failure to thrive syndrome, adult Status: Acute Plan: Discharge planning per case management
--- NOTE | 2021-08-28 13:26 | CT ---
HISTORYAMSSTUDYCT brain without IV contrastCOMPARISONCT 08/19/21TECHNIQUEMultiple axial images of the brain were obtained without IV contrast. Dose reduction techniques including Automated Exposure Control (AEC) and adjustment of mA and kV were utilized.FINDINGSVisualized portions of the paranasal sinuses and mastoid air cells are clear. No calvarial fracture is seen. No acute intracranial hemorrhage or mass effect is seen. Prominent diffuse volume loss in the brain with compensatory enlargement of the ventricular system. Moderate chronic small vessel ischemic changes are suspected in the periventricular white matter, basal ganglia, and lamonte, unchanged. No evidence of acute CVA.IMPRESSIONAppearance of the brain is unchanged.Electronically signed by: Valentin Hernandez (Aug 28, 2021 13:24:51)
[2021-08-28] MEDS: LIPITOR TAB 80 MG PO SCH (21:48)
[2021-08-28] MEDS: MELATONIN PO SCH (21:48)
[2021-08-29] MEDS: NS 1,000 ML IV 1,000 ML IV SCH ×2 (02:27→14:26)
[2021-08-29 04:53] LABS: BASOPHILS % (AUTO) 0.2 % (0.2-1.0); EOSINOPHILS # (AUTO) 0.1 x10^3/uL (0.0-0.2); EOSINOPHILS % (AUTO) 1.4 % (0.9-2.9); HEMATOCRIT 21.9 % (42.0-54.0); HEMOGLOBIN 7.4 g/dL (13.5-18.0); LYMPHOCYTES # (AUTO) 0.3 X10^3/uL (1.3-2.9); LYMPHOCYTES % (AUTO) 3.8 % (21.0-51.0); MEAN CORPUSCULAR HEMOGLOBIN 33.8 pg (27.0-34.0); MEAN CORPUSCULAR VOLUME 99.4 fL (80.0-100.0); MEAN PLATELET VOLUME 9.7 fL (7.4-11.0); MONOCYTES # (AUTO) 0.7 x10^3/uL (0.3-0.8); MONOCYTES % (AUTO) 8.7 % (0.0-13.0); NEUTROPHILS # (AUTO) 6.7 x10^3/uL (2.2-4.8); NEUTROPHILS % (AUTO) 85.9 % (42.0-75.0); PLATELET COUNT 83 X10^3/uL (150.0-450.0); RED CELL DISTRIBUTION WIDTH 14.8 % (11.6-16.5); WHITE BLOOD COUNT 7.8 X10^3/uL (3.6-10.0)
[2021-08-29 05:07] LABS: ALBUMIN 2.4 g/dL (3.4-5.0); CALCIUM 8.3 mg/dL (8.5-10.1); CARBON DIOXIDE 17.1 mmol/L (21-32); COR CA(FOR HYPOALB) 9.6 mg/dL (8.5-10.1); CREATININE 4.22 mg/dL (0.70-1.30); TOTAL PROTEIN 5.1 g/dL (6.4-8.2)
--- NOTE | 2021-08-29 05:35 | RAD ---
PROCEDURE: Chest X-ray 1 View .HISTORY: Dyspnea.TECHNIQUE: AP view .COMPARISON: 08/24/2021.TECHNICAL QUALITY: Satisfactory .FINDINGS:Unchanged start size upper limits of normal with previous sternotomy and pacemaker on the left.Normal central vascularity.No consolidation, pleural fluid, or pneumothorax.IMPRESSION:Unchanged start size upper limits of normal with no other active disease.Electronically signed by: Kolton Bourne (Aug 29, 2021 05:34:08)
[2021-08-29] MEDS ORDERED: LEXAPRO ONE (10:00)
[2021-08-29] MEDS: ASPIRIN 81 MG CHEWTAB PO SCH (10:04)
[2021-08-29] MEDS: BUMEX TAB 1 MG PO SCH (10:04)
[2021-08-29] MEDS: COREG TAB 25 MG PO SCH ×2 (10:05→21:49)
[2021-08-29] MEDS: FLOMAX PO SCH (10:05)
[2021-08-29] MEDS: FERROUS GLUCONATE PO SCH (10:05)
[2021-08-29] MEDS: MICRO K EXTEN CAP 10 MEQ PO SCH (10:06)
[2021-08-29] MEDS: ISOSORBIDE MONONITRATE ER 24-HR PO SCH (10:06)
[2021-08-29] MEDS: LEXAPRO PO SCH (10:06)
[2021-08-29] MEDS: PROSCAR PO SCH (10:07)
[2021-08-29] MEDS: PLAVIX PO SCH (10:07)
[2021-08-29] MEDS: NORVASC TAB 5 MG PO SCH (10:07)
[2021-08-29] MEDS: PROTONIX TAB 40 MG PO SCH (10:08)
[2021-08-29] MEDS: ROCEPHIN 1 GRAM IV PREMIX 1 G/50 ML IV.SOLN. IV SCH (10:08)
--- NOTE | 2021-08-29 11:19 | RAD ---
HISTORYRight shoulder painSTUDYRight shoulder three viewsCOMPARISONNoneFINDINGSThe clavicle, AC joint, scapula, glenohumeral joint, and proximal humerus are intact. There is superior humeral migration suggestive of chronic rotator cuff disease. There is peritendinous calcification in the area the biceps tendon which can be seen with calcific tendinitis and calcific bursitis. There is degenerative joint disease in the AC joint.IMPRESSIONSuperior humeral migration suggestive of chronic rotator cuff diseasePeritendinous calcification in the area the biceps tendon which can be seen with calcific tendinitis and calcific bursitisAC joint degenerative joint diseaseElectronically signed by: JENNIFER GANNON (Aug 29, 2021 11:16:38)
[2021-08-29] MEDS: ULTRAM PO PRN (12:02)
--- NOTE | 2021-08-29 15:38 | PCM.PROG ---
Progress Note - Subjective Subjective: Patient is a 86 year old AAM who was admitted as per HPI. Family reports they are unable to care for patient at home and will not be able to take him back home. Patient is alert but confused at baseline. PT has attempted to work with patient; due to mentation patient is not receptive and does not understand. Patient cannot ambulate or get out of bed. Patient does grimace when touching right shoulder. Family at bedside; discussed patient's case in detail with them. - Past Medical Family Social History Past Med/Fam/Surg Hx: No changes since H&P Allergies: Allergies Iodinated Contrast Media Allergy (Verified 08/24/21 16:31) ketorolac [From Toradol] Allergy (Verified 08/24/21 16:31) lisinopril Allergy (Verified 08/24/21 16:31) - Review of Systems ROS: No change since H&P - Vital Signs and I&O's Vital Signs: Temperature 97.5 F Pulse Rate [Right Radial] 70 Pulse Rate 66 Respiratory Rate 18 Blood Pressure [Left Arm] 111/65 Blood Pressure [Right Arm] 164/90 Blood Pressure [Left Arm] 167/65 Blood Pressure 102/62 O2 Sat by Pulse Oximetry 100 Intake and Output: Intake & Output 08/26/21 08/27/21 08/28/21 08/29/21 23:59 23:59 23:59 23:59 Intake Total 3240 / 3240 3119 / 3119 1466 / 1466 0 / 0 Output Total 725 / 725 375 / 375 750 / 750 100 / 100 Balance 2515 / 2515 2744 / 2744 716 / 716 -100 / -100 - Physical Exam Oriented: Not Oriented Eyes: Normal Ear: Normal Nose: Normal Throat: Normal Respiratory: Normal Cardiovascular: Normal : Hematuria, Other (TALBOT CATHETER; hematuria resolved) Auscultation: Bowel Sounds: Normal Palpation: Normal Tenderness: Normal Skin: Normal Musculoskeletal: Right, Shoulder (tenderness), Instability (Not ambulatory; generalized weakness) Psychiatric: Normal Mood Description: Flat Affect: Flat Speech Pattern: Clear, Inappropriate - Laboratory and Diagnostics Result Diagrams: 08/29/21 04:15 08/29/21 04:15 Labs: 08/24/21 14:20 Urine,Catheterized Urine Culture - Final Laboratory WBC 7.8 X10^3/uL (3.6-10.0) 08/29/21 04:15 RBC 2.20 X10^6/uL (4.7-6.0) L 08/29/21 04:15 Hgb 7.4 g/dL (13.5-18.0) L 08/29/21 04:15 Hct 21.9 % (42.0-54.0) L 08/29/21 04:15 MCV 99.4 fL (80.0-100.0) 08/29/21 04:15 MCH 33.8 pg (27.0-34.0) 08/29/21 04:15 MCHC 34.0 g/dL (33.0-35.0) 08/29/21 04:15 RDW 14.8 % (11.6-16.5) 08/29/21 04:15 Plt Count 83 X10^3/uL (150.0-450.0) L 08/29/21 04:15 MPV 9.7 fL (7.4-11.0) 08/29/21 04:15 Neut % (Auto) 85.9 % (42.0-75.0) H 08/29/21 04:15 Lymph % (Auto) 3.8 % (21.0-51.0) L 08/29/21 04:15 [place] % (Auto) 8.7 % (0.0-13.0) 08/29/21 04:15 Eos % (Auto) 1.4 % (0.9-2.9) 08/29/21 04:15 Baso % (Auto) 0.2 % (0.2-1.0) 08/29/21 04:15 Neut # (Auto) 6.7 x10^3/uL (2.2-4.8) H 08/29/21 04:15 Lymph # (Auto) 0.3 X10^3/uL (1.3-2.9) L 08/29/21 04:15 [place] # (Auto) 0.7 x10^3/uL (0.3-0.8) 08/29/21 04:15 Eos # (Auto) 0.1 x10^3/uL (0.0-0.2) 08/29/21 04:15 Baso # (Auto) 0.0 X10^3/uL (0.0-0.1) 08/29/21 04:15 Absolute Nucleated RBC 0.0 /100WBC 08/29/21 04:15 Sodium 136 mmol/L (136-145) 08/29/21 04:15 Corrected Sodium 137 mmol/L (136-145) 08/29/21 04:15 Potassium 3.6 mmol/L (3.5-5.1) 08/29/21 04:15 Chloride 106 mmol/L (98-107) 08/29/21 04:15 Carbon Dioxide 17.1 mmol/L (21-32) L 08/29/21 04:15 BUN 66 mg/dL (7-18) H 08/29/21 04:15 Creatinine 4.22 mg/dL (0.70-1.30) H 08/29/21 04:15 Est GFR (MDRD) Af Amer 17 (>60) L 08/29/21 04:15 Est GFR (MDRD) Non-Af 14 (>60) L 08/29/21 04:15 Glucose 135 mg/dL (65-99) H 08/29/21 04:15 POC Glucose (mg/dL) 128 mg/dL (65-99) H 08/29/21 11:30 Calcium 8.3 mg/dL (8.5-10.1) L 08/29/21 04:15 Corrected Calcium 9.6 mg/dL (8.5-10.1) 08/29/21 04:15 Total Bilirubin 0.40 mg/dL (0.2-1.0) 08/29/21 04:15 AST 27 Units/L (15-37) 08/29/21 04:15 ALT 26 Units/L (12-78) 08/29/21 04:15 Alkaline Phosphatase 41 Units/L (46-116) L 08/29/21 04:15 B-Natriuretic Peptide 463 pg/mL (0-79) H 08/29/21 04:15 Total Protein 5.1 g/dL (6.4-8.2) L 08/29/21 04:15 Albumin 2.4 g/dL (3.4-5.0) L 08/29/21 04:15 Globulin 2.7 g/dL (2.5-4.5) 08/29/21 04:15 Albumin/Globulin Ratio 0.9 Ratio (1.1-2.1) L 08/29/21 04:15 Specimen Type Catherized urine 08/24/21 14:20 Urine Color Bloody (YELLOW) 08/24/21 14:20 Urine Appearance Cloudy (CLEAR) 08/24/21 14:20 Urine pH 7.0 (5.0 - 8.0) 08/24/21 14:20 Ur Specific [place] 1.010 (1.000-1.030) 08/24/21 14:20 Urine Protein 4+ (NEGATIVE) 08/24/21 14:20 Urine Glucose (UA) Negative (NEGATIVE) 08/24/21 14:20 Urine Ketones Negative (NEGATIVE) 08/24/21 14:20 Urine Occult Blood 5+ (NEGATIVE) 08/24/21 14:20 Urine Nitrite Negative (NEGATIVE) 08/24/21 14:20 Urine Bilirubin Negative (NEGATIVE) 08/24/21 14:20 Urine Urobilinogen Normal (NORMAL) 08/24/21 14:20 Ur Leukocyte Esterase 3+ (NEGATIVE) 08/24/21 14:20 Urine RBC Tntc /HPF (0-3) A 08/24/21 14:20 Urine WBC Tntc /HPF (0-5) A 08/24/21 14:20 Ur Squamous Epith Cells Rare /HPF (NEGATIVE) 08/24/21 14:20 Urine Bacteria 3+ /HPF (NEGATIVE) 08/24/21 14:20 Ur Culture Indicated? Yes/culture set up 08/24/21 14:20 SARS CoV-2 RNA Rapid IVETH Negative (NEGATIVE) 08/24/21 15:33 - Plan (1) Acute dehydration Status: Acute Plan: No major improvement in labs with IV fluids. IV fluids to KVO (2) CHF (congestive heart failure) Status: Acute Qualifiers: Heart failure type: unspecified Heart failure chronicity: chronic Qualified Code(s): I50.9 - Heart failure, unspecified (3) Anemia Status: Acute Qualifiers: Anemia type: unspecified type Qualified Code(s): D64.9 - Anemia, unspecified Plan: Labs (4) SOB (shortness of breath) Status: Acute Plan: CXR in am (5) Chronic kidney disease (CKD) Status: Chronic Qualifiers: Chronic kidney disease stage: unspecified stage Qualified Code(s): N18.9 - Chronic kidney disease, unspecified Plan: Follow labs (6) Altered mental status Status: Acute Qualifiers: Altered mental status type: transient alteration of awareness Qualified Code(s): R40.4 - Transient alteration of awareness Plan: CT head wo (7) Weakness generalized Status: Acute Plan: PT (8) Failure to thrive syndrome, adult Status: Acute Plan: Discharge planning per case management (9) Right shoulder pain Status: Acute Plan: xray right shoulder
[2021-08-29 20:37] LABS: BASOPHILS % (AUTO) 0.6 % (0.2-1.0); EOSINOPHILS # (AUTO) 0.1 x10^3/uL (0.0-0.2); EOSINOPHILS % (AUTO) 1.4 % (0.9-2.9); HEMATOCRIT 21.9 % (42.0-54.0); HEMOGLOBIN 7.6 g/dL (13.5-18.0); LYMPHOCYTES # (AUTO) 0.4 X10^3/uL (1.3-2.9); LYMPHOCYTES % (AUTO) 5.2 % (21.0-51.0); MEAN CORPUSCULAR HEMOGLOBIN 34.3 pg (27.0-34.0); MEAN CORPUSCULAR HGB CONC 34.6 g/dL (33.0-35.0); MEAN CORPUSCULAR VOLUME 99.2 fL (80.0-100.0); MEAN PLATELET VOLUME 9.2 fL (7.4-11.0); MONOCYTES # (AUTO) 0.6 x10^3/uL (0.3-0.8); NEUTROPHILS # (AUTO) 5.9 x10^3/uL (2.2-4.8); NEUTROPHILS % (AUTO) 84.8 % (42.0-75.0); PLATELET COUNT 81 X10^3/uL (150.0-450.0); RED BLOOD COUNT 2.21 X10^6/uL (4.7-6.0); RED CELL DISTRIBUTION WIDTH 14.6 % (11.6-16.5)
[2021-08-29 20:44] LABS: ALBUMIN 2.4 g/dL (3.4-5.0); CALCIUM 8.3 mg/dL (8.5-10.1); CARBON DIOXIDE 20.2 mmol/L (21-32); COR CA(FOR HYPOALB) 9.6 mg/dL (8.5-10.1); CREATININE 4.54 mg/dL (0.70-1.30); TOTAL PROTEIN 5.4 g/dL (6.4-8.2)
[2021-08-29] MEDS: MELATONIN PO SCH (21:49)
[2021-08-29] MEDS: LIPITOR TAB 80 MG PO SCH (21:49)
[2021-08-30] MEDS: NS 1,000 ML IV 1,000 ML IV SCH ×2 (04:04→22:56)
[2021-08-30 05:07] LABS: BASOPHILS % (AUTO) 0.4 % (0.2-1.0); EOSINOPHILS # (AUTO) 0.1 x10^3/uL (0.0-0.2); EOSINOPHILS % (AUTO) 2.1 % (0.9-2.9); HEMATOCRIT 20.9 % (42.0-54.0); HEMOGLOBIN 7.2 g/dL (13.5-18.0); LYMPHOCYTES # (AUTO) 0.4 X10^3/uL (1.3-2.9); LYMPHOCYTES % (AUTO) 5.9 % (21.0-51.0); MEAN CORPUSCULAR HEMOGLOBIN 34.1 pg (27.0-34.0); MEAN CORPUSCULAR HGB CONC 34.7 g/dL (33.0-35.0); MEAN CORPUSCULAR VOLUME 98.1 fL (80.0-100.0); MEAN PLATELET VOLUME 9.2 fL (7.4-11.0); MONOCYTES # (AUTO) 0.6 x10^3/uL (0.3-0.8); MONOCYTES % (AUTO) 9.3 % (0.0-13.0); NEUTROPHILS # (AUTO) 5.5 x10^3/uL (2.2-4.8); NEUTROPHILS % (AUTO) 82.3 % (42.0-75.0); PLATELET COUNT 85 X10^3/uL (150.0-450.0); RED BLOOD COUNT 2.13 X10^6/uL (4.7-6.0); RED CELL DISTRIBUTION WIDTH 14.5 % (11.6-16.5); WHITE BLOOD COUNT 6.6 X10^3/uL (3.6-10.0)
[2021-08-30] MEDS ORDERED: LEXAPRO ONE (10:02)
[2021-08-30] MEDS: ASPIRIN 81 MG CHEWTAB PO SCH (10:17)
[2021-08-30] MEDS: BUMEX TAB 1 MG PO SCH (10:19)
[2021-08-30] MEDS: COREG TAB 25 MG PO SCH ×2 (10:19→21:33)
[2021-08-30] MEDS: FERROUS GLUCONATE PO SCH (10:20)
[2021-08-30] MEDS: FLOMAX PO SCH (10:21)
[2021-08-30] MEDS: ISOSORBIDE MONONITRATE ER 24-HR PO SCH (10:23)
[2021-08-30] MEDS: MICRO K EXTEN CAP 10 MEQ PO SCH (10:25)
[2021-08-30] MEDS: LEXAPRO PO SCH (10:25)
[2021-08-30] MEDS: NORVASC TAB 5 MG PO SCH (10:26)
[2021-08-30] MEDS: PROSCAR PO SCH (10:27)
[2021-08-30] MEDS: PLAVIX PO SCH (10:27)
[2021-08-30] MEDS: PROTONIX TAB 40 MG PO SCH (10:27)
[2021-08-30] MEDS: ULTRAM PO PRN ×2 (11:04→21:33)
[2021-08-30] MEDS: ROCEPHIN 1 GRAM IV PREMIX 1 G/50 ML IV.SOLN. IV SCH (12:16)
--- NOTE | 2021-08-30 20:19 | CT ---
EXAM: CT ABDOMEN AND PELVIS WITHOUT INTRAVENOUS CONTRASTHISTORY: Pain. Abdominal distention.TECHNIQUE: Spiral axial CT images are obtained through the abdomen and pelvis without the administration of intravenous contrast. Additional coronal and sagittal reformatted images are reconstructed.DOSIMETRY: Total DLP 578.7 mGycm; CTDI 11.3 mGyCOMPARISON: None available.FINDINGS:GASTROINTESTINAL TRACT: There is diffuse colonic diverticulosis, especially severe in the sigmoid region, without CT evidence for acute diverticulitis. No evidence for bowel herniation, bowel obstruction, or colitis. A normal-appearing appendix is seen.GENITOURINARY SYSTEM: There is severe prostatomegaly (9.4 cm CC by 7.5 cm AP by 8 cm transverse) in keeping with BPH; concomitant occult neoplastic disease not excluded. Severely dilated urinary bladder (20.3 cm CC by 13 cm AP by 16.7 cm transverse) in keeping with partial outlet obstruction and urinary retention in the appropriate clinical setting; no urine extravasation seen. There is mild to moderate bilateral hydronephrosis/hydroureter (without discernible obstructing ureteral stones or lesions) in keeping with functional obstruction secondary to urinary bladder dilatation. There are multiple bilateral renal cysts; largest projecting from the right upper pole kidney measuring [address] ABDOMEN: There is hyperdense material within the gallbladder lumen which may represent sludge/gallstones and/or vicarious excretion of contrast material in the appropriate clinical setting. Severe aortoiliac atherosclerotic disease, without aneurysm formation. The liver, spleen, pancreas, adrenal glands, and inferior vena cava are within normal limits for a noncontrast CT scan. There is no intra-abdominal or retroperitoneal lymphadenopathy, free fluid, or free air seen. No abdominal herniation is noted. Diffuse subcutaneous soft tissue edema; rule out third spacing secondary to hypoalbuminemia or hypervolemia.CT PELVIS: No pelvic sidewall or inguinal lymphadenopathy is seen. No inguinal herniation is noted. No free fluid or free air is seen.BONES AND JOINTS: The visualized bony structures are within normal limits.LUNG BASES: Cardiac pacer wires are noted in situ. Prosthetic aortic valve in situ. Mild cardiomegaly is noted. Trace bilateral pleural effusions are noted.IMPRESSION:1. Severe prostatomegaly (9.4 cm CC by 7.5 cm AP by 8 cm transverse) in keeping with BPH; concomitant occult neoplastic disease not excluded.2. Severely dilated urinary bladder (20.3 cm CC by 13 cm AP by 16.7 cm transverse) in keeping with partial outlet obstruction and urinary retention in the appropriate clinical setting; no urine extravasation seen.3. Mild to moderate bilateral hydronephrosis/hydroureter (without discernible obstructing ureteral stones or lesions) in keeping with functional obstruction secondary to urinary bladder dilatation.4. Multiple bilateral renal cysts; largest projecting from the right upper pole kidney measuring 8 cm.5. Diffuse colonic diverticulosis, especially severe in the sigmoid region, without CT evidence for acute diverticulitis.6. No evidence for bowel herniation, bowel obstruction, appendicitis or colitis.7. No free fluid, free air, mass lesions, or lymphadenopathy seen.8. Diffuse subcutaneous soft tissue edema; rule out third spacing secondary to hypoalbuminemia or hypervolemia.Electronically signed by: Ginger Dennis (Aug 30, 2021 20:18:41)
[2021-08-30] MEDS: MELATONIN PO SCH (21:32)
[2021-08-30] MEDS: VISTARIL PO PRN (21:33)
[2021-08-30] MEDS: LIPITOR TAB 80 MG PO SCH (21:34)
--- NOTE | 2021-08-30 21:39 | PCM.PROG ---
Progress Note - Subjective Subjective: Patient is a 86 year old AAM who was admitted as per HPI. Patient is alert but confused at baseline; hitory of dementia. PT has attempted to work with patient; due to mentation patient is not receptive and does not understand. Patient cannot ambulate or get out of bed. Due to worsening renal failure without response to iv fluids plan is to transfer patient back to [facility]. Pending transfer. - Past Medical Family Social History Past Med/Fam/Surg Hx: No changes since H&P Allergies: Allergies Iodinated Contrast Media Allergy (Verified 08/24/21 16:31) ketorolac [From Toradol] Allergy (Verified 08/24/21 16:31) lisinopril Allergy (Verified 08/24/21 16:31) - Review of Systems ROS: No change since H&P - Vital Signs and I&O's Vital Signs: Temperature 98.8 F Pulse Rate [Right Radial] 71 Pulse Rate 66 Respiratory Rate 18 Blood Pressure [Left Arm] 118/70 Blood Pressure [Right Arm] 164/90 Blood Pressure [Left Arm] 167/65 Blood Pressure 102/62 O2 Sat by Pulse Oximetry 100 Intake and Output: Intake & Output 08/27/21 08/28/21 08/29/21 08/30/21 23:59 23:59 23:59 23:59 Intake Total 3119 / 3119 1466 / 1466 542 / 542 360 / 360 Output Total 375 / 375 750 / 750 250 / 250 Balance 2744 / 2744 716 / 716 292 / 292 360 / 360 - Physical Exam Oriented: Not Oriented Eyes: Normal Ear: Normal Nose: Normal Throat: Normal Respiratory: Normal Cardiovascular: Normal : Other (TALBOT CATHETER; hematuria resolved) Auscultation: Bowel Sounds: Normal Palpation: Normal Tenderness: Normal Skin: Normal Musculoskeletal: Right, Shoulder (tenderness), Instability (Not ambulatory; generalized weakness) Psychiatric: Normal Mood Description: Flat Affect: Flat Speech Pattern: Clear, Inappropriate - Laboratory and Diagnostics Result Diagrams: 08/30/21 04:15 08/29/21 20:18 Labs: 08/24/21 14:20 Urine,Catheterized Urine Culture - Final Laboratory WBC 6.6 X10^3/uL (3.6-10.0) 08/30/21 04:15 RBC 2.13 X10^6/uL (4.7-6.0) L 08/30/21 04:15 Hgb 7.2 g/dL (13.5-18.0) L 08/30/21 04:15 Hct 20.9 % (42.0-54.0) L 08/30/21 04:15 MCV 98.1 fL (80.0-100.0) 08/30/21 04:15 MCH 34.1 pg (27.0-34.0) H 08/30/21 04:15 MCHC 34.7 g/dL (33.0-35.0) 08/30/21 04:15 RDW 14.5 % (11.6-16.5) 08/30/21 04:15 Plt Count 85 X10^3/uL (150.0-450.0) L 08/30/21 04:15 MPV 9.2 fL (7.4-11.0) 08/30/21 04:15 Neut % (Auto) 82.3 % (42.0-75.0) H 08/30/21 04:15 Lymph % (Auto) 5.9 % (21.0-51.0) L 08/30/21 04:15 [place] % (Auto) 9.3 % (0.0-13.0) 08/30/21 04:15 Eos % (Auto) 2.1 % (0.9-2.9) 08/30/21 04:15 Baso % (Auto) 0.4 % (0.2-1.0) 08/30/21 04:15 Neut # (Auto) 5.5 x10^3/uL (2.2-4.8) H 08/30/21 04:15 Lymph # (Auto) 0.4 X10^3/uL (1.3-2.9) L 08/30/21 04:15 [place] # (Auto) 0.6 x10^3/uL (0.3-0.8) 08/30/21 04:15 Eos # (Auto) 0.1 x10^3/uL (0.0-0.2) 08/30/21 04:15 Baso # (Auto) 0.0 X10^3/uL (0.0-0.1) 08/30/21 04:15 Absolute Nucleated RBC 0.0 /100WBC 08/30/21 04:15 Sodium 133 mmol/L (136-145) L 08/29/21 20:18 Corrected Sodium 134 mmol/L (136-145) L 08/29/21 20:18 Potassium 4.2 mmol/L (3.5-5.1) 08/29/21 20:18 Chloride 104 mmol/L (98-107) 08/29/21 20:18 Carbon Dioxide 20.2 mmol/L (21-32) L 08/29/21 20:18 BUN 69 mg/dL (7-18) H 08/29/21 20:18 Creatinine 4.54 mg/dL (0.70-1.30) H 08/29/21 20:18 Est GFR (MDRD) Af Amer 16 (>60) L 08/29/21 20:18 Est GFR (MDRD) Non-Af 13 (>60) L 08/29/21 20:18 Glucose 126 mg/dL (65-99) H 08/29/21 20:18 POC Glucose (mg/dL) 143 mg/dL (65-99) H 08/30/21 20:43 Calcium 8.3 mg/dL (8.5-10.1) L 08/29/21 20:18 Corrected Calcium 9.6 mg/dL (8.5-10.1) 08/29/21 20:18 Total Bilirubin 0.30 mg/dL (0.2-1.0) 08/29/21 20:18 AST 31 Units/L (15-37) 08/29/21 20:18 ALT 27 Units/L (12-78) 08/29/21 20:18 Alkaline Phosphatase 43 Units/L (46-116) L 08/29/21 20:18 B-Natriuretic Peptide 463 pg/mL (0-79) H 08/29/21 04:15 Total Protein 5.4 g/dL (6.4-8.2) L 08/29/21 20:18 Albumin 2.4 g/dL (3.4-5.0) L 08/29/21 20:18 Globulin 3.0 g/dL (2.5-4.5) 08/29/21 20:18 Albumin/Globulin Ratio 0.8 Ratio (1.1-2.1) L 08/29/21 20:18 Specimen Type Catherized urine 08/24/21 14:20 Urine Color Bloody (YELLOW) 08/24/21 14:20 Urine Appearance Cloudy (CLEAR) 08/24/21 14:20 Urine pH 7.0 (5.0 - 8.0) 08/24/21 14:20 Ur Specific [place] 1.010 (1.000-1.030) 08/24/21 14:20 Urine Protein 4+ (NEGATIVE) 08/24/21 14:20 Urine Glucose (UA) Negative (NEGATIVE) 08/24/21 14:20 Urine Ketones Negative (NEGATIVE) 08/24/21 14:20 Urine Occult Blood 5+ (NEGATIVE) 08/24/21 14:20 Urine Nitrite Negative (NEGATIVE) 08/24/21 14:20 Urine Bilirubin Negative (NEGATIVE) 08/24/21 14:20 Urine Urobilinogen Normal (NORMAL) 08/24/21 14:20 Ur Leukocyte Esterase 3+ (NEGATIVE) 08/24/21 14:20 Urine RBC Tntc /HPF (0-3) A 08/24/21 14:20 Urine WBC Tntc /HPF (0-5) A 08/24/21 14:20 Ur Squamous Epith Cells Rare /HPF (NEGATIVE) 08/24/21 14:20 Urine Bacteria 3+ /HPF (NEGATIVE) 08/24/21 14:20 Ur Culture Indicated? Yes/culture set up 08/24/21 14:20 SARS CoV-2 RNA Rapid IVETH Negative (NEGATIVE) 08/24/21 15:33 - Plan (1) Acute dehydration Status: Acute Plan: No major improvement in labs with IV fluids. IV fluids to KVO (2) CHF (congestive heart failure) Status: Chronic Qualifiers: Heart failure type: unspecified Heart failure chronicity: chronic Qualified Code(s): I50.9 - Heart failure, unspecified (3) Anemia Status: Chronic Qualifiers: Anemia type: unspecified type Qualified Code(s): D64.9 - Anemia, unspecified Plan: Labs (4) SOB (shortness of breath) Status: Acute Plan: CXR in am (5) Chronic kidney disease (CKD) Status: Chronic Qualifiers: Chronic kidney disease stage: unspecified stage Qualified Code(s): N18.9 - Chronic kidney disease, unspecified Plan: Follow labs. [facility]s [facility] outpatient (6) Altered mental status Status: Chronic Qualifiers: Altered mental status type: transient alteration of awareness Qualified Code(s): R40.4 - Transient alteration of awareness (7) Weakness generalized Status: Acute Plan: PT (8) Failure to thrive syndrome, adult Status: Acute Plan: Discharge planning per case management (9) Right shoulder pain Status: Acute Plan: xray right shoulder (10) BPH (benign prostatic hyperplasia) Status: Chronic (11) Coronary artery disease Status: Chronic Plan: Recent stent. Plan for transfer
[2021-08-30 21:43] LABS: BILIRUBIN,URINE NEGATIVE (NEGATIVE); BLOOD/HEMOGLOBIN,URINE 5+ (NEGATIVE); GLUCOSE, URINE NEGATIVE (NEGATIVE); KETONES,URINE NEGATIVE (NEGATIVE); LEUKOCYTE ESTERASE ,URINE NEGATIVE (NEGATIVE); NITRITES,URINE NEGATIVE (NEGATIVE); PROTEIN,URINE 1+ (NEGATIVE); UROBILINOGEN,URINE NORMAL (NORMAL)
[2021-08-30 21:52] LABS: APPEARANCE,URINE CLEAR (CLEAR); BACTERIA,URINE NEGATIVE /HPF (NEGATIVE); COLOR,URINE YELLOW (YELLOW); RBC,URINE 20-30 /HPF (0-3); SQUAMOUS EPITHELIAL CELL,UR RARE /HPF (NEGATIVE)
[2021-08-31 05:26] LABS: BASOPHILS % (AUTO) 0.5 % (0.2-1.0); EOSINOPHILS # (AUTO) 0.1 x10^3/uL (0.0-0.2); EOSINOPHILS % (AUTO) 2.7 % (0.9-2.9); HEMATOCRIT 20.6 % (42.0-54.0); HEMOGLOBIN 7.1 g/dL (13.5-18.0); LYMPHOCYTES # (AUTO) 0.4 X10^3/uL (1.3-2.9); LYMPHOCYTES % (AUTO) 6.5 % (21.0-51.0); MEAN CORPUSCULAR HEMOGLOBIN 33.7 pg (27.0-34.0); MEAN CORPUSCULAR HGB CONC 34.4 g/dL (33.0-35.0); MEAN CORPUSCULAR VOLUME 98.1 fL (80.0-100.0); MEAN PLATELET VOLUME 9.1 fL (7.4-11.0); MONOCYTES # (AUTO) 0.5 x10^3/uL (0.3-0.8); MONOCYTES % (AUTO) 8.4 % (0.0-13.0); NEUTROPHILS # (AUTO) 4.5 x10^3/uL (2.2-4.8); NEUTROPHILS % (AUTO) 81.9 % (42.0-75.0); PLATELET COUNT 87 X10^3/uL (150.0-450.0); RED CELL DISTRIBUTION WIDTH 14.6 % (11.6-16.5); WHITE BLOOD COUNT 5.5 X10^3/uL (3.6-10.0)
[2021-08-31 05:35] LABS: ALANINE AMINOTRANSFERASE 24 Units/L (12-78); ALBUMIN 2.2 g/dL (3.4-5.0); ALKALINE PHOSPHATASE 43 Units/L (46-116); ASPARTATE AMINO TRANSFERASE 22 Units/L (15-37); BLOOD UREA NITROGEN 75 mg/dL (7-18); CALCIUM 8.3 mg/dL (8.5-10.1); CARBON DIOXIDE 18.3 mmol/L (21-32); CHLORIDE 104 mmol/L (98-107); COR CA(FOR HYPOALB) 9.7 mg/dL (8.5-10.1); CREATININE 4.62 mg/dL (0.70-1.30); SODIUM 136 mmol/L (136-145); eGFR NON BLACK RACES 13 (>60)
[2021-08-31] MEDS: PLAVIX PO SCH (09:00)
[2021-08-31] MEDS ORDERED: LEXAPRO ONE (09:08)
[2021-08-31] MEDS: ROCEPHIN 1 GRAM IV PREMIX 1 G/50 ML IV.SOLN. IV SCH (09:14)
[2021-08-31] MEDS: ISOSORBIDE MONONITRATE ER 24-HR PO SCH (09:15)
[2021-08-31] MEDS: FLOMAX PO SCH (09:16)
[2021-08-31] MEDS: FERROUS GLUCONATE PO SCH (09:16)
[2021-08-31] MEDS: ASPIRIN 81 MG CHEWTAB PO SCH (09:16)
[2021-08-31] MEDS: BUMEX TAB 1 MG PO SCH (09:16)
[2021-08-31] MEDS: LEXAPRO PO SCH (09:17)
[2021-08-31] MEDS: NORVASC TAB 5 MG PO SCH (09:18)
[2021-08-31] MEDS: PROTONIX TAB 40 MG PO SCH (09:18)
[2021-08-31] MEDS: PROSCAR PO SCH (09:18)
[2021-08-31] MEDS: ULTRAM PO PRN (09:18)
[2021-08-31] MEDS: COREG TAB 25 MG PO SCH ×3 (09:18→21:21)
[2021-08-31] MEDS: MICRO K EXTEN CAP 10 MEQ PO SCH (09:30)
--- NOTE | 2021-08-31 11:27 | RAD ---
HISTORYCHFSTUDYSingle-view [id number] trachea is midline. The cardiac silhouette is enlarged with a tortuous thoracic aorta. A Port-A-Cath overlying the left chest is observed the tip in the SVC. The lungs are clear without focal infiltrate or effusion. The bony thorax is unremarkable.IMPRESSIONNo acute cardiopulmonary disease.Electronically signed by: DAYNE ROSS (Aug 31, 2021 11:25:08)
[2021-08-31] MEDS: NS 1,000 ML IV 1,000 ML IV SCH ×2 (13:34→21:17)
[2021-08-31] MEDS: MORPHINE SULFATE INJ 2 MG INJ IVP PRN ×2 (13:34→19:50)
[2021-08-31] MEDS: LIPITOR TAB 80 MG PO SCH ×2 (21:16→21:21)
[2021-08-31] MEDS: MELATONIN PO SCH ×2 (21:16→21:21)
[2021-09-01 05:20] LABS: BASOPHILS % (AUTO) 0.6 % (0.2-1.0); EOSINOPHILS # (AUTO) 0.2 x10^3/uL (0.0-0.2); EOSINOPHILS % (AUTO) 3.1 % (0.9-2.9); HEMATOCRIT 22.1 % (42.0-54.0); HEMOGLOBIN 7.6 g/dL (13.5-18.0); LYMPHOCYTES # (AUTO) 0.3 X10^3/uL (1.3-2.9); LYMPHOCYTES % (AUTO) 5.9 % (21.0-51.0); MEAN CORPUSCULAR HEMOGLOBIN 33.7 pg (27.0-34.0); MEAN CORPUSCULAR HGB CONC 34.2 g/dL (33.0-35.0); MEAN CORPUSCULAR VOLUME 98.5 fL (80.0-100.0); MEAN PLATELET VOLUME 9.1 fL (7.4-11.0); MONOCYTES # (AUTO) 0.3 x10^3/uL (0.3-0.8); MONOCYTES % (AUTO) 6.7 % (0.0-13.0); NEUTROPHILS # (AUTO) 4.4 x10^3/uL (2.2-4.8); NEUTROPHILS % (AUTO) 83.7 % (42.0-75.0); PLATELET COUNT 102 X10^3/uL (150.0-450.0); RED BLOOD COUNT 2.25 X10^6/uL (4.7-6.0); RED CELL DISTRIBUTION WIDTH 14.4 % (11.6-16.5); WHITE BLOOD COUNT 5.2 X10^3/uL (3.6-10.0)
[2021-09-01 05:30] LABS: ALANINE AMINOTRANSFERASE 23 Units/L (12-78); ALBUMIN 2.2 g/dL (3.4-5.0); ALKALINE PHOSPHATASE 45 Units/L (46-116); ASPARTATE AMINO TRANSFERASE 21 Units/L (15-37); BLOOD UREA NITROGEN 68 mg/dL (7-18); CALCIUM 8.6 mg/dL (8.5-10.1); CARBON DIOXIDE 18.7 mmol/L (21-32); CHLORIDE 107 mmol/L (98-107); CREATININE 3.85 mg/dL (0.70-1.30); SODIUM 138 mmol/L (136-145); TOTAL PROTEIN 5.2 g/dL (6.4-8.2); eGFR NON BLACK RACES 16 (>60)
[2021-09-01] MEDS: MORPHINE SULFATE INJ 2 MG INJ IVP PRN (06:22)
[2021-09-01] MEDS: ASPIRIN 81 MG CHEWTAB PO SCH (08:52)
[2021-09-01] MEDS: PROSCAR PO SCH (08:52)
[2021-09-01] MEDS: BUMEX TAB 1 MG PO SCH ×2 (08:52→09:24)
[2021-09-01] MEDS: COREG TAB 25 MG PO SCH ×2 (09:24→21:28)
[2021-09-01] MEDS: FERROUS GLUCONATE PO SCH (09:24)
[2021-09-01] MEDS: PROTONIX TAB 40 MG PO SCH (09:24)
[2021-09-01] MEDS: PLAVIX PO SCH (09:25)
[2021-09-01] MEDS: MICRO K EXTEN CAP 10 MEQ PO SCH (09:25)
[2021-09-01] MEDS: FLOMAX PO SCH (09:25)
[2021-09-01] MEDS: LEXAPRO PO SCH (09:25)
[2021-09-01] MEDS: NORVASC TAB 5 MG PO SCH (09:25)
[2021-09-01] MEDS: ISOSORBIDE MONONITRATE ER 24-HR PO SCH (09:26)
[2021-09-01] MEDS: ROCEPHIN 1 GRAM IV PREMIX 1 G/50 ML IV.SOLN. IV SCH (10:28)
[2021-09-01] MEDS: MELATONIN PO SCH (21:28)
[2021-09-01] MEDS: NS 1,000 ML IV 1,000 ML IV SCH (21:28)
[2021-09-01] MEDS: LIPITOR TAB 80 MG PO SCH (21:28)
[2021-09-02 05:53] LABS: BASOPHILS % (AUTO) 0.6 % (0.2-1.0); EOSINOPHILS # (AUTO) 0.1 x10^3/uL (0.0-0.2); EOSINOPHILS % (AUTO) 2.3 % (0.9-2.9); HEMATOCRIT 22.8 % (42.0-54.0); HEMOGLOBIN 7.9 g/dL (13.5-18.0); LYMPHOCYTES # (AUTO) 0.3 X10^3/uL (1.3-2.9); MEAN CORPUSCULAR HEMOGLOBIN 34.1 pg (27.0-34.0); MEAN CORPUSCULAR HGB CONC 34.5 g/dL (33.0-35.0); MEAN CORPUSCULAR VOLUME 98.9 fL (80.0-100.0); MEAN PLATELET VOLUME 8.5 fL (7.4-11.0); MONOCYTES # (AUTO) 0.4 x10^3/uL (0.3-0.8); MONOCYTES % (AUTO) 7.1 % (0.0-13.0); NEUTROPHILS # (AUTO) 4.8 x10^3/uL (2.2-4.8); PLATELET COUNT 103 X10^3/uL (150.0-450.0); RED CELL DISTRIBUTION WIDTH 14.1 % (11.6-16.5); WHITE BLOOD COUNT 5.7 X10^3/uL (3.6-10.0)
[2021-09-02 06:18] LABS: ALANINE AMINOTRANSFERASE 22 Units/L (12-78); ALBUMIN 2.1 g/dL (3.4-5.0); ALKALINE PHOSPHATASE 47 Units/L (46-116); ASPARTATE AMINO TRANSFERASE 22 Units/L (15-37); BLOOD UREA NITROGEN 62 mg/dL (7-18); CALCIUM 8.8 mg/dL (8.5-10.1); CARBON DIOXIDE 19.9 mmol/L (21-32); CHLORIDE 109 mmol/L (98-107); COR CA(FOR HYPOALB) 10.3 mg/dL (8.5-10.1); CREATININE 3.13 mg/dL (0.70-1.30); SODIUM 140 mmol/L (136-145); TOTAL PROTEIN 5.2 g/dL (6.4-8.2); eGFR NON BLACK RACES 20 (>60)
[2021-09-02] MEDS: PLAVIX PO SCH (09:00)
[2021-09-02] MEDS ORDERED: LEXAPRO ONE (09:25)
[2021-09-02] MEDS: PROTONIX TAB 40 MG PO SCH (09:30)
[2021-09-02] MEDS: NORVASC TAB 5 MG PO SCH (09:30)
[2021-09-02] MEDS: FERROUS GLUCONATE PO SCH (09:30)
[2021-09-02] MEDS: ISOSORBIDE MONONITRATE ER 24-HR PO SCH (09:30)
[2021-09-02] MEDS: BUMEX TAB 1 MG PO SCH (09:30)
[2021-09-02] MEDS: FLOMAX PO SCH (09:30)
[2021-09-02] MEDS: ASPIRIN 81 MG CHEWTAB PO SCH (09:30)
[2021-09-02] MEDS: MICRO K EXTEN CAP 10 MEQ PO SCH (09:30)
[2021-09-02] MEDS: COREG TAB 25 MG PO SCH ×2 (09:30→21:26)
[2021-09-02] MEDS: LEXAPRO PO SCH (09:30)
[2021-09-02] MEDS: MORPHINE SULFATE INJ 2 MG INJ IVP PRN (10:08)
[2021-09-02] MEDS: ROCEPHIN 1 GRAM IV PREMIX 1 G/50 ML IV.SOLN. IV SCH (10:19)
[2021-09-02] MEDS: PROSCAR PO SCH (10:19)
[2021-09-02] MEDS ORDERED: BUTT CREAM (COMPOUND) TOP PRN (11:45)
[2021-09-02] MEDS: LIPITOR TAB 80 MG PO SCH (21:26)
[2021-09-02] MEDS: MELATONIN PO SCH (21:26)
[2021-09-02] MEDS: NS 1,000 ML IV 1,000 ML IV SCH ×2 (21:27→22:05)
[2021-09-02] MEDS: NovoLIN R (or HumuLIN R) SC PRN (21:27)
[2021-09-02] MEDS: MAGNESIUM SULFATE 1 GRAM/100 mL PREMIX 2 G/200 ML BAG IV SCH ×2 (22:00→23:14)
[2021-09-03 05:09] LABS: BASOPHILS % (AUTO) 0.4 % (0.2-1.0); EOSINOPHILS # (AUTO) 0.2 x10^3/uL (0.0-0.2); EOSINOPHILS % (AUTO) 2.9 % (0.9-2.9); HEMATOCRIT 20.6 % (42.0-54.0); HEMOGLOBIN 7.1 g/dL (13.5-18.0); LYMPHOCYTES # (AUTO) 0.4 X10^3/uL (1.3-2.9); MEAN CORPUSCULAR HEMOGLOBIN 33.7 pg (27.0-34.0); MEAN CORPUSCULAR HGB CONC 34.3 g/dL (33.0-35.0); MEAN CORPUSCULAR VOLUME 98.1 fL (80.0-100.0); MEAN PLATELET VOLUME 8.7 fL (7.4-11.0); MONOCYTES # (AUTO) 0.4 x10^3/uL (0.3-0.8); MONOCYTES % (AUTO) 7.3 % (0.0-13.0); NEUTROPHILS # (AUTO) 4.4 x10^3/uL (2.2-4.8); NEUTROPHILS % (AUTO) 82.4 % (42.0-75.0); PLATELET COUNT 97 X10^3/uL (150.0-450.0); RED CELL DISTRIBUTION WIDTH 14.5 % (11.6-16.5); WHITE BLOOD COUNT 5.4 X10^3/uL (3.6-10.0)
[2021-09-03 05:17] LABS: ALANINE AMINOTRANSFERASE 19 Units/L (12-78); ALKALINE PHOSPHATASE 45 Units/L (46-116); ASPARTATE AMINO TRANSFERASE 20 Units/L (15-37); BLOOD UREA NITROGEN 60 mg/dL (7-18); CALCIUM 8.4 mg/dL (8.5-10.1); CARBON DIOXIDE 23.3 mmol/L (21-32); CHLORIDE 108 mmol/L (98-107); CREATININE 2.64 mg/dL (0.70-1.30); SODIUM 138 mmol/L (136-145); TOTAL PROTEIN 4.9 g/dL (6.4-8.2); eGFR NON BLACK RACES 25 (>60)
[2021-09-03] MEDS: ROCEPHIN 1 GRAM IV PREMIX 1 G/50 ML IV.SOLN. IV SCH (08:19)
[2021-09-03] MEDS: ASPIRIN 81 MG CHEWTAB PO SCH ×2 (10:22→11:28)
[2021-09-03] MEDS: COREG TAB 25 MG PO SCH ×3 (10:23→21:05)
[2021-09-03] MEDS: FERROUS GLUCONATE PO SCH ×2 (10:23→11:29)
[2021-09-03] MEDS: FLOMAX PO SCH ×2 (10:23→11:29)
[2021-09-03] MEDS: ISOSORBIDE MONONITRATE ER 24-HR PO SCH ×2 (10:23→11:29)
[2021-09-03] MEDS: BUMEX TAB 1 MG PO SCH ×2 (10:23→11:28)
[2021-09-03] MEDS: NORVASC TAB 5 MG PO SCH ×2 (10:24→11:30)
[2021-09-03] MEDS: MICRO K EXTEN CAP 10 MEQ PO SCH ×2 (10:24→11:30)
[2021-09-03] MEDS: LEXAPRO PO SCH ×2 (10:24→11:30)
[2021-09-03] MEDS: PLAVIX PO SCH ×2 (10:25→11:30)
[2021-09-03] MEDS: PROTONIX TAB 40 MG PO SCH ×2 (10:25→11:30)
[2021-09-03] MEDS: PROSCAR PO SCH ×2 (10:25→11:30)
[2021-09-03] MEDS ORDERED: LEXAPRO ONE (11:02)
[2021-09-03] MEDS ORDERED: APLISOL ID ONE (12:48)
[2021-09-03] MEDS: NS 1,000 ML IV 1,000 ML IV SCH ×2 (15:33→22:00)
[2021-09-03] MEDS: MORPHINE SULFATE INJ 2 MG INJ IVP PRN (18:34)
[2021-09-03] MEDS: NovoLIN R (or HumuLIN R) SC PRN (21:00)
[2021-09-03] MEDS: LIPITOR TAB 80 MG PO SCH (21:05)
[2021-09-03] MEDS: MELATONIN PO SCH (21:05)
--- NOTE | 2021-09-03 22:44 | PCM.PROG ---
Progress Note - Subjective Subjective: Patient is a 86 year old AAM who was admitted as per HPI. Patient is alert but confused at baseline; hitory of dementia. Renal function has improved. Failure was related to bladder outlet obstruction; wade placed. Pending family and case management for discharge planning. - Past Medical Family Social History Past Med/Fam/Surg Hx: No changes since H&P Allergies: Allergies Iodinated Contrast Media Allergy (Verified 08/24/21 16:31) ketorolac [From Toradol] Allergy (Verified 08/24/21 16:31) lisinopril Allergy (Verified 08/24/21 16:31) - Review of Systems ROS: No change since H&P - Vital Signs and I&O's Vital Signs: Temperature 97.8 F Pulse Rate [Right Radial] 70 Pulse Rate 66 Respiratory Rate 20 Blood Pressure [Left Arm] 131/67 Blood Pressure [Right Arm] 135/71 Blood Pressure [Left Arm] 167/65 Blood Pressure 102/62 O2 Sat by Pulse Oximetry 99 Intake and Output: Intake & Output 08/31/21 09/01/21 09/02/21 09/03/21 23:59 23:59 23:59 23:59 Intake Total 1370 / 1370 593 / 593 1397 / 1397 1146 / 1146 Output Total 2325 / 2325 2575 / 2575 1320 / 1320 2049 / 2049 Balance -955 / -955 -1981 / 77 / 77 -904 / -904 - Physical Exam Oriented: Not Oriented Eyes: Normal Ear: Normal Nose: Normal Throat: Normal Respiratory: Normal Cardiovascular: Normal : Other (WADE CATHETER; hematuria resolved) Auscultation: Bowel Sounds: Normal Palpation: Normal Tenderness: Normal Skin: Normal Musculoskeletal: Right, Shoulder (tenderness), Instability (Not ambulatory; generalized weakness) Psychiatric: Normal Mood Description: Flat Affect: Flat Speech Pattern: Clear, Inappropriate - Laboratory and Diagnostics Result Diagrams: 09/03/21 04:34 09/03/21 04:34 Labs: 08/24/21 14:20 Urine,Catheterized Urine Culture - Final Laboratory WBC 5.4 X10^3/uL (3.6-10.0) 09/03/21 04:34 RBC 2.10 X10^6/uL (4.7-6.0) L 09/03/21 04:34 Hgb 7.1 g/dL (13.5-18.0) L 09/03/21 04:34 Hct 20.6 % (42.0-54.0) L 09/03/21 04:34 MCV 98.1 fL (80.0-100.0) 09/03/21 04:34 MCH 33.7 pg (27.0-34.0) 09/03/21 04:34 MCHC 34.3 g/dL (33.0-35.0) 09/03/21 04:34 RDW 14.5 % (11.6-16.5) 09/03/21 04:34 Plt Count 97 X10^3/uL (150.0-450.0) L 09/03/21 04:34 MPV 8.7 fL (7.4-11.0) 09/03/21 04:34 Neut % (Auto) 82.4 % (42.0-75.0) H 09/03/21 04:34 Lymph % (Auto) 7.0 % (21.0-51.0) L 09/03/21 04:34 [place] % (Auto) 7.3 % (0.0-13.0) 09/03/21 04:34 Eos % (Auto) 2.9 % (0.9-2.9) 09/03/21 04:34 Baso % (Auto) 0.4 % (0.2-1.0) 09/03/21 04:34 Neut # (Auto) 4.4 x10^3/uL (2.2-4.8) 09/03/21 04:34 Lymph # (Auto) 0.4 X10^3/uL (1.3-2.9) L 09/03/21 04:34 [place] # (Auto) 0.4 x10^3/uL (0.3-0.8) 09/03/21 04:34 Eos # (Auto) 0.2 x10^3/uL (0.0-0.2) 09/03/21 04:34 Baso # (Auto) 0.0 X10^3/uL (0.0-0.1) 09/03/21 04:34 Absolute Nucleated RBC 0.0 /100WBC 09/03/21 04:34 Sodium 138 mmol/L (136-145) 09/03/21 04:34 Corrected Sodium TNP 09/03/21 04:34 Potassium 3.2 mmol/L (3.5-5.1) L 09/03/21 04:34 Chloride 108 mmol/L (98-107) H 09/03/21 04:34 Carbon Dioxide 23.3 mmol/L (21-32) 09/03/21 04:34 BUN 60 mg/dL (7-18) H 09/03/21 04:34 Creatinine 2.64 mg/dL (0.70-1.30) H 09/03/21 04:34 Est GFR (MDRD) Af Amer 30 (>60) L 09/03/21 04:34 Est GFR (MDRD) Non-Af 25 (>60) L 09/03/21 04:34 Glucose 101 mg/dL (65-99) H 09/03/21 04:34 POC Glucose (mg/dL) 174 mg/dL (65-99) H 09/03/21 19:53 Calcium 8.4 mg/dL (8.5-10.1) L 09/03/21 04:34 Corrected Calcium 10.0 mg/dL (8.5-10.1) 09/03/21 04:34 Magnesium 1.5 mg/dL (1.7-2.9) L 09/03/21 04:34 Total Bilirubin 0.30 mg/dL (0.2-1.0) 09/03/21 04:34 AST 20 Units/L (15-37) 09/03/21 04:34 ALT 19 Units/L (12-78) 09/03/21 04:34 Alkaline Phosphatase 45 Units/L (46-116) L 09/03/21 04:34 B-Natriuretic Peptide 463 pg/mL (0-79) H 08/29/21 04:15 Total Protein 4.9 g/dL (6.4-8.2) L 09/03/21 04:34 Albumin 2.0 g/dL (3.4-5.0) L 09/03/21 04:34 Globulin 2.9 g/dL (2.5-4.5) 09/03/21 04:34 Albumin/Globulin Ratio 0.7 Ratio (1.1-2.1) L 09/03/21 04:34 Specimen Type Catherized urine 08/30/21 21:15 Urine Color Yellow (YELLOW) 08/30/21 21:15 Urine Appearance Clear (CLEAR) 08/30/21 21:15 Urine pH 5.0 (5.0 - 8.0) 08/30/21 21:15 Ur Specific [place] 1.010 (1.000-1.030) 08/30/21 21:15 Urine Protein 1+ (NEGATIVE) 08/30/21 21:15 Urine Glucose (UA) Negative (NEGATIVE) 08/30/21 21:15 Urine Ketones Negative (NEGATIVE) 08/30/21 21:15 Urine Occult Blood 5+ (NEGATIVE) 08/30/21 21:15 Urine Nitrite Negative (NEGATIVE) 08/30/21 21:15 Urine Bilirubin Negative (NEGATIVE) 08/30/21 21:15 Urine Urobilinogen Normal (NORMAL) 08/30/21 21:15 Ur Leukocyte Esterase Negative (NEGATIVE) 08/30/21 21:15 Urine RBC 20-30 /HPF (0-3) A 08/30/21 21:15 Urine WBC 0-2 /HPF (0-5) 08/30/21 21:15 Ur Squamous Epith Cells Rare /HPF (NEGATIVE) 08/30/21 21:15 Urine Bacteria Negative /HPF (NEGATIVE) 08/30/21 21:15 Ur Culture Indicated? No/not indicated 08/30/21 21:15 SARS CoV-2 RNA Rapid IVETH Negative (NEGATIVE) 09/03/21 13:29 - Plan (1) Acute dehydration Status: Acute Plan: No major improvement in labs with IV fluids. IV fluids to KVO (2) CHF (congestive heart failure) Status: Chronic Qualifiers: Heart failure type: unspecified Heart failure chronicity: chronic Qualified Code(s): I50.9 - Heart failure, unspecified (3) Anemia Status: Chronic Qualifiers: Anemia type: unspecified type Qualified Code(s): D64.9 - Anemia, unspecified Plan: Labs (4) SOB (shortness of breath) Status: Resolved (5) Chronic kidney disease (CKD) Status: Chronic Qualifiers: Chronic kidney disease stage: unspecified stage Qualified Code(s): N18.9 - Chronic kidney disease, unspecified Plan: Follow labs. Follows up with [facility] outpatient (6) Altered mental status Status: Chronic Qualifiers: Altered mental status type: transient alteration of awareness Qualified Code(s): R40.4 - Transient alteration of awareness (7) Weakness generalized Status: Acute Plan: PT (8) Failure to thrive syndrome, adult Status: Acute Plan: Discharge planning per case management (9) Right shoulder pain Status: Acute Plan: xray right shoulder (10) BPH (benign prostatic hyperplasia) Status: Chronic (11) Coronary artery disease Status: Chronic Plan: Recent stent
[2021-09-04 05:54] LABS: BASOPHILS % (AUTO) 0.4 % (0.2-1.0); EOSINOPHILS # (AUTO) 0.2 x10^3/uL (0.0-0.2); EOSINOPHILS % (AUTO) 2.8 % (0.9-2.9); HEMATOCRIT 20.8 % (42.0-54.0); HEMOGLOBIN 7.1 g/dL (13.5-18.0); LYMPHOCYTES # (AUTO) 0.4 X10^3/uL (1.3-2.9); LYMPHOCYTES % (AUTO) 6.4 % (21.0-51.0); MEAN CORPUSCULAR HEMOGLOBIN 33.6 pg (27.0-34.0); MEAN CORPUSCULAR VOLUME 98.8 fL (80.0-100.0); MEAN PLATELET VOLUME 9.1 fL (7.4-11.0); MONOCYTES # (AUTO) 0.5 x10^3/uL (0.3-0.8); NEUTROPHILS # (AUTO) 4.7 x10^3/uL (2.2-4.8); NEUTROPHILS % (AUTO) 82.4 % (42.0-75.0); PLATELET COUNT 96 X10^3/uL (150.0-450.0); RED BLOOD COUNT 2.11 X10^6/uL (4.7-6.0); RED CELL DISTRIBUTION WIDTH 14.3 % (11.6-16.5); WHITE BLOOD COUNT 5.7 X10^3/uL (3.6-10.0)
[2021-09-04 06:07] LABS: CALCIUM 8.3 mg/dL (8.5-10.1); CARBON DIOXIDE 22.8 mmol/L (21-32); COR CA(FOR HYPOALB) 9.9 mg/dL (8.5-10.1); CREATININE 2.51 mg/dL (0.70-1.30); TOTAL PROTEIN 4.9 g/dL (6.4-8.2)
[2021-09-04] MEDS ORDERED: LEXAPRO ONE (07:07)
[2021-09-04] MEDS: COREG TAB 25 MG PO SCH ×2 (08:54→20:05)
[2021-09-04] MEDS: ASPIRIN 81 MG CHEWTAB PO SCH (08:54)
[2021-09-04] MEDS: BUMEX TAB 1 MG PO SCH (08:54)
[2021-09-04] MEDS: FERROUS GLUCONATE PO SCH (08:55)
[2021-09-04] MEDS: FLOMAX PO SCH (08:55)
[2021-09-04] MEDS: ISOSORBIDE MONONITRATE ER 24-HR PO SCH (08:55)
[2021-09-04] MEDS: NORVASC TAB 5 MG PO SCH (08:55)
[2021-09-04] MEDS: MICRO K EXTEN CAP 10 MEQ PO SCH (08:55)
[2021-09-04] MEDS: LEXAPRO PO SCH (08:55)
[2021-09-04] MEDS: PROSCAR PO SCH (08:56)
[2021-09-04] MEDS: ROCEPHIN 1 GRAM IV PREMIX 1 G/50 ML IV.SOLN. IV SCH (08:56)
[2021-09-04] MEDS: PLAVIX PO SCH (08:56)
[2021-09-04] MEDS: PROTONIX TAB 40 MG PO SCH (08:56)
[2021-09-04] MEDS: MORPHINE SULFATE INJ 2 MG INJ IVP PRN (09:28)
[2021-09-04] MEDS: NovoLIN R (or HumuLIN R) SC PRN (12:01)
--- NOTE | 2021-09-04 17:13 | PCM.PROG ---
Progress Note - Subjective Subjective: Patient is a 86 year old AAM who was admitted as per HPI. Patient is alert but confused at baseline; hitory of dementia. Renal function has improved. Failure was related to bladder outlet obstruction; wade placed. Pending family and case management for discharge planning. - Past Medical Family Social History Past Med/Fam/Surg Hx: No changes since H&P Allergies: Allergies Iodinated Contrast Media Allergy (Verified 08/24/21 16:31) ketorolac [From Toradol] Allergy (Verified 08/24/21 16:31) lisinopril Allergy (Verified 08/24/21 16:31) - Review of Systems ROS: No change since H&P - Vital Signs and I&O's Vital Signs: Temperature 98.7 F Pulse Rate [Right Radial] 73 Pulse Rate 66 Respiratory Rate 18 Blood Pressure [Left Arm] 133/74 Blood Pressure [Right Arm] 135/71 Blood Pressure [Left Arm] 167/65 Blood Pressure 102/62 O2 Sat by Pulse Oximetry 96 Intake and Output: Intake & Output 09/01/21 09/02/21 09/03/21 09/04/21 23:59 23:59 23:59 23:59 Intake Total 593 / 593 1397 / 1397 1386 / 1386 1440 / 1440 Output Total 2575 / 2575 1320 / 1320 2450 / 2450 800 / 800 Balance -1981 / -1982 77 / 77 -1064 / -1064 640 / 640 - Physical Exam Oriented: Not Oriented Eyes: Normal Ear: Normal Nose: Normal Throat: Normal Respiratory: Normal Cardiovascular: Normal : Other (WADE CATHETER; hematuria resolved) Auscultation: Bowel Sounds: Normal Palpation: Normal Tenderness: Normal Skin: Normal Musculoskeletal: Right, Shoulder (tenderness), Instability (Not ambulatory; generalized weakness) Psychiatric: Normal Mood Description: Flat Affect: Flat Speech Pattern: Clear, Appropriate - Laboratory and Diagnostics Result Diagrams: 09/04/21 05:21 09/04/21 05:21 Labs: 08/24/21 14:20 Urine,Catheterized Urine Culture - Final Laboratory WBC 5.7 X10^3/uL (3.6-10.0) 09/04/21 05:21 RBC 2.11 X10^6/uL (4.7-6.0) L 09/04/21 05:21 Hgb 7.1 g/dL (13.5-18.0) L 09/04/21 05:21 Hct 20.8 % (42.0-54.0) L 09/04/21 05:21 MCV 98.8 fL (80.0-100.0) 09/04/21 05:21 MCH 33.6 pg (27.0-34.0) 09/04/21 05:21 MCHC 34.0 g/dL (33.0-35.0) 09/04/21 05:21 RDW 14.3 % (11.6-16.5) 09/04/21 05:21 Plt Count 96 X10^3/uL (150.0-450.0) L 09/04/21 05:21 MPV 9.1 fL (7.4-11.0) 09/04/21 05:21 Neut % (Auto) 82.4 % (42.0-75.0) H 09/04/21 05:21 Lymph % (Auto) 6.4 % (21.0-51.0) L 09/04/21 05:21 Kay % (Auto) 8.0 % (0.0-13.0) 09/04/21 05:21 Eos % (Auto) 2.8 % (0.9-2.9) 09/04/21 05:21 Baso % (Auto) 0.4 % (0.2-1.0) 09/04/21 05:21 Neut # (Auto) 4.7 x10^3/uL (2.2-4.8) 09/04/21 05:21 Lymph # (Auto) 0.4 X10^3/uL (1.3-2.9) L 09/04/21 05:21 Kay # (Auto) 0.5 x10^3/uL (0.3-0.8) 09/04/21 05:21 Eos # (Auto) 0.2 x10^3/uL (0.0-0.2) 09/04/21 05:21 Baso # (Auto) 0.0 X10^3/uL (0.0-0.1) 09/04/21 05:21 Absolute Nucleated RBC 0.0 /100WBC 09/04/21 05:21 Sodium 139 mmol/L (136-145) 09/04/21 05:21 Corrected Sodium 140 mmol/L (136-145) 09/04/21 05:21 Potassium 3.4 mmol/L (3.5-5.1) L 09/04/21 05:21 Chloride 109 mmol/L (98-107) H 09/04/21 05:21 Carbon Dioxide 22.8 mmol/L (21-32) 09/04/21 05:21 BUN 56 mg/dL (7-18) H 09/04/21 05:21 Creatinine 2.51 mg/dL (0.70-1.30) H 09/04/21 05:21 Est GFR (MDRD) Af Amer 32 (>60) L 09/04/21 05:21 Est GFR (MDRD) Non-Af 26 (>60) L 09/04/21 05:21 Glucose 124 mg/dL (65-99) H 09/04/21 05:21 POC Glucose (mg/dL) 137 mg/dL (65-99) H 09/04/21 16:33 Calcium 8.3 mg/dL (8.5-10.1) L 09/04/21 05:21 Corrected Calcium 9.9 mg/dL (8.5-10.1) 09/04/21 05:21 Magnesium 1.5 mg/dL (1.7-2.9) L 09/03/21 04:34 Total Bilirubin 0.30 mg/dL (0.2-1.0) 09/04/21 05:21 AST 18 Units/L (15-37) 09/04/21 05:21 ALT 18 Units/L (12-78) 09/04/21 05:21 Alkaline Phosphatase 51 Units/L (46-116) 09/04/21 05:21 B-Natriuretic Peptide 463 pg/mL (0-79) H 08/29/21 04:15 Total Protein 4.9 g/dL (6.4-8.2) L 09/04/21 05:21 Albumin 2.0 g/dL (3.4-5.0) L 09/04/21 05:21 Globulin 2.9 g/dL (2.5-4.5) 09/04/21 05:21 Albumin/Globulin Ratio 0.7 Ratio (1.1-2.1) L 09/04/21 05:21 Specimen Type Catherized urine 08/30/21 21:15 Urine Color Yellow (YELLOW) 08/30/21 21:15 Urine Appearance Clear (CLEAR) 08/30/21 21:15 Urine pH 5.0 (5.0 - 8.0) 08/30/21 21:15 Ur Specific [place] 1.010 (1.000-1.030) 08/30/21 21:15 Urine Protein 1+ (NEGATIVE) 08/30/21 21:15 Urine Glucose (UA) Negative (NEGATIVE) 08/30/21 21:15 Urine Ketones Negative (NEGATIVE) 08/30/21 21:15 Urine Occult Blood 5+ (NEGATIVE) 08/30/21 21:15 Urine Nitrite Negative (NEGATIVE) 08/30/21 21:15 Urine Bilirubin Negative (NEGATIVE) 08/30/21 21:15 Urine Urobilinogen Normal (NORMAL) 08/30/21 21:15 Ur Leukocyte Esterase Negative (NEGATIVE) 08/30/21 21:15 Urine RBC 20-30 /HPF (0-3) A 08/30/21 21:15 Urine WBC 0-2 /HPF (0-5) 08/30/21 21:15 Ur Squamous Epith Cells Rare /HPF (NEGATIVE) 08/30/21 21:15 Urine Bacteria Negative /HPF (NEGATIVE) 08/30/21 21:15 Ur Culture Indicated? No/not indicated 08/30/21 21:15 SARS CoV-2 RNA Rapid IVETH Negative (NEGATIVE) 09/03/21 13:29 - Plan (1) Acute dehydration Status: Acute Plan: No major improvement in labs with IV fluids. IV fluids to KVO (2) CHF (congestive heart failure) Status: Chronic Qualifiers: Heart failure type: unspecified Heart failure chronicity: chronic Qualified Code(s): I50.9 - Heart failure, unspecified (3) Anemia Status: Chronic Qualifiers: Anemia type: unspecified type Qualified Code(s): D64.9 - Anemia, unspecified Plan: Labs (4) SOB (shortness of breath) Status: Resolved Plan: CXR in am (5) Chronic kidney disease (CKD) Status: Chronic Qualifiers: Chronic kidney disease stage: unspecified stage Qualified Code(s): N18.9 - Chronic kidney disease, unspecified Plan: Follow labs. Follows up with [facility] outpatient (6) Altered mental status Status: Chronic Qualifiers: Altered mental status type: transient alteration of awareness Qualified Code(s): R40.4 - Transient alteration of awareness Plan: CT head wo (7) Weakness generalized Status: Acute Plan: PT (8) Failure to thrive syndrome, adult Status: Acute Plan: Discharge planning per case management (9) Right shoulder pain Status: Acute Plan: xray right shoulder (10) BPH (benign prostatic hyperplasia) Status: Chronic (11) Coronary artery disease Status: Chronic Plan: Recent stent (12) Acute on chronic renal failure Status: Resolved (13) Osteoarthritis Status: Chronic
[2021-09-04] MEDS: LIPITOR TAB 80 MG PO SCH (20:05)
[2021-09-04] MEDS: MELATONIN PO SCH (20:05)
[2021-09-05 06:45] LABS: BASOPHILS % (AUTO) 0.7 % (0.2-1.0); EOSINOPHILS # (AUTO) 0.1 x10^3/uL (0.0-0.2); EOSINOPHILS % (AUTO) 2.2 % (0.9-2.9); HEMATOCRIT 20.9 % (42.0-54.0); HEMOGLOBIN 7.2 g/dL (13.5-18.0); LYMPHOCYTES # (AUTO) 0.4 X10^3/uL (1.3-2.9); LYMPHOCYTES % (AUTO) 6.2 % (21.0-51.0); MEAN CORPUSCULAR HEMOGLOBIN 33.7 pg (27.0-34.0); MEAN CORPUSCULAR HGB CONC 34.4 g/dL (33.0-35.0); MEAN CORPUSCULAR VOLUME 98.1 fL (80.0-100.0); MEAN PLATELET VOLUME 9.3 fL (7.4-11.0); MONOCYTES # (AUTO) 0.5 x10^3/uL (0.3-0.8); MONOCYTES % (AUTO) 9.2 % (0.0-13.0); NEUTROPHILS # (AUTO) 4.8 x10^3/uL (2.2-4.8); NEUTROPHILS % (AUTO) 81.7 % (42.0-75.0); PLATELET COUNT 102 X10^3/uL (150.0-450.0); RED BLOOD COUNT 2.13 X10^6/uL (4.7-6.0); RED CELL DISTRIBUTION WIDTH 14.3 % (11.6-16.5); WHITE BLOOD COUNT 5.9 X10^3/uL (3.6-10.0)
[2021-09-05 07:20] LABS: CALCIUM 8.6 mg/dL (8.5-10.1); CARBON DIOXIDE 24.7 mmol/L (21-32); COR CA(FOR HYPOALB) 10.2 mg/dL (8.5-10.1); CREATININE 2.34 mg/dL (0.70-1.30)
[2021-09-05] MEDS ORDERED: LEXAPRO ONE (08:33)
[2021-09-05] MEDS: PLAVIX PO SCH (08:35)
[2021-09-05] MEDS: ROCEPHIN 1 GRAM IV PREMIX 1 G/50 ML IV.SOLN. IV SCH (08:40)
[2021-09-05] MEDS: ASPIRIN 81 MG CHEWTAB PO SCH (08:41)
[2021-09-05] MEDS: PROTONIX TAB 40 MG PO SCH (08:41)
[2021-09-05] MEDS: LEXAPRO PO SCH (08:41)
[2021-09-05] MEDS: NORVASC TAB 5 MG PO SCH (08:42)
[2021-09-05] MEDS: PROSCAR PO SCH (08:44)
[2021-09-05] MEDS: ISOSORBIDE MONONITRATE ER 24-HR PO SCH (08:45)
[2021-09-05] MEDS: BUMEX TAB 1 MG PO SCH (08:46)
[2021-09-05] MEDS: FLOMAX PO SCH (08:47)
[2021-09-05] MEDS: COREG TAB 25 MG PO SCH (08:47)
[2021-09-05] MEDS: MICRO K EXTEN CAP 10 MEQ PO SCH (08:48)
[2021-09-05] MEDS: FERROUS GLUCONATE PO SCH (08:49)
[2021-09-05] MEDS: NS 1,000 ML IV 1,000 ML IV SCH (09:15)
[2021-09-05 16:24] VITALS: BP 142/65
== END 2021-09-05 17:15 | disposition home or self-care (01) | DRG 292 ==
LOC: ER 12:58 → MED/SURG 12:58
PROVIDERS: ADMIT Internal Medicine; ATTEND Internal Medicine

== ENCOUNTER 2021-09-27 17:05 | Inpatient (IN) ==
[2021-09-27] MEDS ORDERED: NS 1,000 ML IV 1,000 ML IV ONE (18:11)
--- NOTE | 2021-09-27 18:11 | DR.FEVERAD ---
HPI <Micah Ramirez - Last Filed: 10/02/21 08:44> Time seen Time Seen by Provider: 09/27/21 18:04 PCP Primary Care Physician: [facility] Complaints/Symptoms Chief Complaint Doctor Comments: 86 y/o male brought in via EMS for evaluation. He is unable to provide history or complaints. Family states pt has developed fever and a worsening coughover the past few days. Having increasing weakness and confusion. They are usually able to undestand him, but he is no mumbling, difficult to understand. Pt has been on hospice due to COPD. Family told hospice they wanted him sent to the hospital, revoking hospice. Chief Complaint:: presents ems with ams and low grade fever. lung congestion on the right side and diminished on the left. abd distended and tight shiny in appearance. hospice nurse states usual since she has seen him. he has had 8 diarrhea stools yesterday and 2 today. the wade cath that is in place is cloudy and has noted hematuria present like pink in color. he only replies with a grunt to any verbal stimuli. he is wearing a t shirt and an adult diaper. the nurse states he has 2 stage 2 ulcers to buttock area. COVID-19 Coronavirus risk:travel/contact w/high risk person: No Has patient experienced Coronavirus symptoms: Yes Coronavirus symptoms experienced: Fever Nurses notes reviewed Nurses Notes Review: Yes Source History Provided: Family Member, EMS and Other Mode of Arrival Mode of Arrival: EMS Timing Onset of Chief Complaint: 09/27/21 PMH <Micah Ramirez - Last Filed: 10/02/21 08:44> PMH Past Medical History: Yes Past Medical History: Alzheimers, Angina, Arthritis, CHF, Coronary Artery Disease, Dementia, Diabetes, Hypertension, [place] and Renal Disease Past Surgical History: Yes Surgical History: Angioplasty/Stents, CABG/Valve Surgery and Other Past Surgical History Comment: pacer/defib Family History History of Family Medical Conditions: Yes Family Medical History: Diabetes Mellitus, Coronary Artery Disease, Heart Failure and Hypertension Social History Do you use any recreational Drugs:: No Lives With: Family Lives Where: Home Travel Risk Coronavirus risk:travel/contact w/high risk person: No Has patient experienced Coronavirus symptoms: Yes Coronavirus symptoms experienced: Fever Infectious screening In the last 2 months have you had wt loss of >10#?: NO Have you had fever, night sweats or hemotysis?: No Have you traveled outside the country in the last 6 months?: No Isolation: Standard ROS <Micah Ramirez Last Filed: 10/02/21 08:44> Review of Systems Unable to Obtain Due To: Altered mental status PE <Micah Ramirez Last Filed: 10/02/21 08:44> Vital Signs Vitals: Temperature 97.8 F Pulse Rate [Apical] 90 Pulse Rate 70 Respiratory Rate 18 Blood Pressure [Left Arm] 158/79 Blood Pressure 132/72 O2 Sat by Pulse Oximetry 96 General Limitations: Altered Mental Status General Appearance: Alert and In No Apparent Distress Head Head Exam: Normal Inspection Eyes Eye exam: Normal Appearance, PERRL and EOMI ENT ENT Exam: Mucous Membranes Dry Neck Neck Exam: Normal Inspection Respiratory Respiratory Exam: Normal Lung Sounds Bilat; negative Accessory Muscle Use and Respiratory Distress Respiratory Exam: Bilateral: Decreased Breath Sounds Cardiovascular Cardiovascular Exam: Regular Rate, Normal Rhythm and +S3 Abdominal Exam Abdominal Exam: Normal Inspection and Soft; negative Tenderness Extremities Extremities Exam: negative Tenderness and Edema Neurologic Neurological Exam: CN II-XII Intact and Other (has generalized weakness, all exts. + unable to understand speech, does not follow commands.); negative Motor Sensory Deficit Skin Skin Exam: Warm and Dry <Susan Booker - Last Filed: 09/28/21 07:47> Vital Signs Vitals: Temperature 97.8 F Pulse Rate [Apical] 90 Pulse Rate 70 Respiratory Rate 18 Blood Pressure [Left Arm] 158/79 Blood Pressure 132/72 O2 Sat by Pulse Oximetry 96 <Susan Booker - Last Filed: 09/28/21 07:47> Consultation Consultation Comments: spoke with Dr Lopez who accepts pt ROR <Micah Ramirez Last Filed: 10/02/21 08:44> Labs Reviewed Result Diagrams: 10/02/21 05:29 10/02/21 05:29 Laboratory: 09/27/21 21:37 Urine,Catheterized Urine Culture - Final Enterococcus Faecalis Staphylococcus Epidermidis 09/29/21 10:14 Blood Blood Culture - Final Enterococcus Faecalis 09/29/21 09:51 Blood Blood Culture - Final Enterococcus Faecalis 09/27/21 18:50 Blood Blood Culture - Final Enterococcus Faecalis 09/27/21 18:45 Blood Blood Culture - Final Enterococcus Faecalis WBC 10.2 X10^3/uL (3.6-10.0) H 09/30/21 05:20 RBC 2.44 X10^6/uL (4.7-6.0) L 09/30/21 05:20 Hgb 7.5 g/dL (13.5-18.0) L 09/30/21 05:20 Hct 22.4 % (42.0-54.0) L 09/30/21 05:20 MCV 91.7 fL (80.0-100.0) 09/30/21 05:20 MCH 30.7 pg (27.0-34.0) 09/30/21 05:20 MCHC 33.5 g/dL (33.0-35.0) 09/30/21 05:20 RDW 16.3 % (11.6-16.5) 09/30/21 05:20 Plt Count 82 X10^3/uL (150.0-450.0) L 09/30/21 05:20 Plt Count Comment Decreased (ADEQUATE) 09/28/21 03:51 MPV 10.0 fL (7.4-11.0) 09/30/21 05:20 Neut % (Auto) 87.8 % (42.0-75.0) H 09/30/21 05:20 Lymph % (Auto) 3.3 % (21.0-51.0) L 09/30/21 05:20 [place] % (Auto) 6.7 % (0.0-13.0) 09/30/21 05:20 Eos % (Auto) 1.6 % (0.9-2.9) 09/30/21 05:20 Baso % (Auto) 0.6 % (0.2-1.0) 09/30/21 05:20 Neut # (Auto) 9.0 x10^3/uL (2.2-4.8) H 09/30/21 05:20 Lymph # (Auto) 0.3 X10^3/uL (1.3-2.9) L 09/30/21 05:20 [place] # (Auto) 0.7 x10^3/uL (0.3-0.8) 09/30/21 05:20 Eos # (Auto) 0.2 x10^3/uL (0.0-0.2) 09/30/21 05:20 Baso # (Auto) 0.1 X10^3/uL (0.0-0.1) 09/30/21 05:20 Absolute Nucleated RBC 0.0 /100WBC 09/30/21 05:20 Total Counted 100 09/28/21 03:51 Neutrophils % (Manual) 90 % (39-76) H 09/28/21 03:51 Band Neutrophils % 2 % (0-10) 09/28/21 03:51 Lymphocytes % (Manual) 3 % (13-43) L 09/28/21 03:51 Monocytes % (Manual) 5 % (4-9) 09/28/21 03:51 Plt Morphology Comment Normal (NORMAL) 09/28/21 03:51 RBC Morphology Normal (NORMAL) 09/28/21 03:51 Sodium 141 mmol/L (136-145) 09/30/21 05:20 Corrected Sodium 142 mmol/L (136-145) 09/30/21 05:20 Potassium 3.5 mmol/L (3.5-5.1) 09/30/21 05:20 Chloride 106 mmol/L (98-107) 09/30/21 05:20 Carbon Dioxide 24.5 mmol/L (21-32) 09/30/21 05:20 BUN 88 mg/dL (7-18) H 09/30/21 05:20 Creatinine 3.74 mg/dL (0.70-1.30) H 09/30/21 05:20 Est GFR (MDRD) Af Amer 20 (>60) L 09/30/21 05:20 Est GFR (MDRD) Non-Af 16 (>60) L 09/30/21 05:20 Glucose 139 mg/dL (65-99) H 09/30/21 05:20 POC Glucose (mg/dL) 123 mg/dL (65-99) H 09/30/21 05:28 Lactic Acid 0.9 mmol/L (0.4-2.0) 09/27/21 18:45 Calcium 8.4 mg/dL (8.5-10.1) L 09/30/21 05:20 Corrected Calcium 10.3 mg/dL (8.5-10.1) H 09/29/21 05:02 Total Bilirubin 0.30 mg/dL (0.2-1.0) 09/29/21 05:02 AST 29 Units/L (15-37) 09/29/21 05:02 ALT 20 Units/L (12-78) 09/29/21 05:02 Alkaline Phosphatase 65 Units/L (46-116) 09/29/21 05:02 Creatine Kinase 156 Units/L (39-308) 09/27/21 18:45 CK-MB (CK-2) < 1.0 ng/mL (0-4.0) 09/27/21 18:45 CK/CKMB % Calc 0.6 % (<4) 09/27/21 18:45 Troponin I High Sens 52.1 ng/L (4.0-60.0) 09/27/21 18:45 Total Protein 5.4 g/dL (6.4-8.2) L 09/29/21 05:02 Albumin 1.9 g/dL (3.4-5.0) L 09/29/21 05:02 Globulin 3.5 g/dL (2.5-4.5) 09/29/21 05:02 Albumin/Globulin Ratio 0.5 Ratio (1.1-2.1) L 09/29/21 05:02 Lipase 84 Units/L (73-393) 09/27/21 18:45 Specimen Type Catherized urine 09/27/21 21:37 Urine Color [place] (YELLOW) 09/27/21 21:37 Urine Appearance Hazy (CLEAR) 09/27/21 21:37 Urine pH 6.0 (5.0 - 8.0) 09/27/21 21:37 Ur Specific [place] 1.010 (1.000-1.030) 09/27/21 21:37 Urine Protein 3+ (NEGATIVE) 09/27/21 21:37 Urine Glucose (UA) Negative (NEGATIVE) 09/27/21 21:37 Urine Ketones Negative (NEGATIVE) 09/27/21 21:37 Urine Occult Blood 5+ (NEGATIVE) 09/27/21 21:37 Urine Nitrite Negative (NEGATIVE) 09/27/21 21:37 Urine Bilirubin Negative (NEGATIVE) 09/27/21 21:37 Urine Urobilinogen Normal (NORMAL) 09/27/21 21:37 Ur Leukocyte Esterase 3+ (NEGATIVE) 09/27/21 21:37 Urine RBC Tntc /HPF (0-3) A 09/27/21 21:37 Urine WBC 10-20 /HPF (0-5) A 09/27/21 21:37 Ur Squamous Epith Cells Rare /HPF (NEGATIVE) 09/27/21 21:37 Urine Bacteria 2+ /HPF (NEGATIVE) 09/27/21 21:37 Urine Mucus Few /HPF (NEGATIVE) 09/27/21 21:37 Ur Culture Indicated? Yes/culture set up 09/27/21 21:37 SARS-CoV-2 (PCR) Negative (NEGATIVE) 09/27/21 20:42 Influenza Type A (PCR) Negative (NEGATIVE) 09/27/21 20:42 Influenza Type B (PCR) Negative (NEGATIVE) 09/27/21 20:42 RSV (PCR) Negative (NEGATIVE) 09/27/21 20:42 <Susan Booker - Last Filed: 09/28/21 07:47> Labs Reviewed Laboratory Results Reviewed?: Yes Laboratory: 09/27/21 21:37 Urine,Catheterized Urine Culture - Final Enterococcus Faecalis Staphylococcus Epidermidis 09/29/21 10:14 Blood Blood Culture - Final Enterococcus Faecalis 09/29/21 09:51 Blood Blood Culture - Final Enterococcus Faecalis 09/27/21 18:50 Blood Blood Culture - Final Enterococcus Faecalis 09/27/21 18:45 Blood Blood Culture - Final Enterococcus Faecalis WBC 10.2 X10^3/uL (3.6-10.0) H 09/30/21 05:20 RBC 2.44 X10^6/uL (4.7-6.0) L 09/30/21 05:20 Hgb 7.5 g/dL (13.5-18.0) L 09/30/21 05:20 Hct 22.4 % (42.0-54.0) L 09/30/21 05:20 MCV 91.7 fL (80.0-100.0) 09/30/21 05:20 MCH 30.7 pg (27.0-34.0) 09/30/21 05:20 MCHC 33.5 g/dL (33.0-35.0) 09/30/21 05:20 RDW 16.3 % (11.6-16.5) 09/30/21 05:20 Plt Count 82 X10^3/uL (150.0-450.0) L 09/30/21 05:20 Plt Count Comment Decreased (ADEQUATE) 09/28/21 03:51 MPV 10.0 fL (7.4-11.0) 09/30/21 05:20 Neut % (Auto) 87.8 % (42.0-75.0) H 09/30/21 05:20 Lymph % (Auto) 3.3 % (21.0-51.0) L 09/30/21 05:20 [place] % (Auto) 6.7 % (0.0-13.0) 09/30/21 05:20 Eos % (Auto) 1.6 % (0.9-2.9) 09/30/21 05:20 Baso % (Auto) 0.6 % (0.2-1.0) 09/30/21 05:20 Neut # (Auto) 9.0 x10^3/uL (2.2-4.8) H 09/30/21 05:20 Lymph # (Auto) 0.3 X10^3/uL (1.3-2.9) L 09/30/21 05:20 [place] # (Auto) 0.7 x10^3/uL (0.3-0.8) 09/30/21 05:20 Eos # (Auto) 0.2 x10^3/uL (0.0-0.2) 09/30/21 05:20 Baso # (Auto) 0.1 X10^3/uL (0.0-0.1) 09/30/21 05:20 Absolute Nucleated RBC 0.0 /100WBC 09/30/21 05:20 Total Counted 100 09/28/21 03:51 Neutrophils % (Manual) 90 % (39-76) H 09/28/21 03:51 Band Neutrophils % 2 % (0-10) 09/28/21 03:51 Lymphocytes % (Manual) 3 % (13-43) L 09/28/21 03:51 Monocytes % (Manual) 5 % (4-9) 09/28/21 03:51 Plt Morphology Comment Normal (NORMAL) 09/28/21 03:51 RBC Morphology Normal (NORMAL) 09/28/21 03:51 Sodium 141 mmol/L (136-145) 09/30/21 05:20 Corrected Sodium 142 mmol/L (136-145) 09/30/21 05:20 Potassium 3.5 mmol/L (3.5-5.1) 09/30/21 05:20 Chloride 106 mmol/L (98-107) 09/30/21 05:20 Carbon Dioxide 24.5 mmol/L (21-32) 09/30/21 05:20 BUN 88 mg/dL (7-18) H 09/30/21 05:20 Creatinine 3.74 mg/dL (0.70-1.30) H 09/30/21 05:20 Est GFR (MDRD) Af Amer 20 (>60) L 09/30/21 05:20 Est GFR (MDRD) Non-Af 16 (>60) L 09/30/21 05:20 Glucose 139 mg/dL (65-99) H 09/30/21 05:20 POC Glucose (mg/dL) 123 mg/dL (65-99) H 09/30/21 05:28 Lactic Acid 0.9 mmol/L (0.4-2.0) 09/27/21 18:45 Calcium 8.4 mg/dL (8.5-10.1) L 09/30/21 05:20 Corrected Calcium 10.3 mg/dL (8.5-10.1) H 09/29/21 05:02 Total Bilirubin 0.30 mg/dL (0.2-1.0) 09/29/21 05:02 AST 29 Units/L (15-37) 09/29/21 05:02 ALT 20 Units/L (12-78) 09/29/21 05:02 Alkaline Phosphatase 65 Units/L (46-116) 09/29/21 05:02 Creatine Kinase 156 Units/L (39-308) 09/27/21 18:45 CK-MB (CK-2) < 1.0 ng/mL (0-4.0) 09/27/21 18:45 CK/CKMB % Calc 0.6 % (<4) 09/27/21 18:45 Troponin I High Sens 52.1 ng/L (4.0-60.0) 09/27/21 18:45 Total Protein 5.4 g/dL (6.4-8.2) L 09/29/21 05:02 Albumin 1.9 g/dL (3.4-5.0) L 09/29/21 05:02 Globulin 3.5 g/dL (2.5-4.5) 09/29/21 05:02 Albumin/Globulin Ratio 0.5 Ratio (1.1-2.1) L 09/29/21 05:02 Lipase 84 Units/L (73-393) 09/27/21 18:45 Specimen Type Catherized urine 09/27/21 21:37 Urine Color [place] (YELLOW) 09/27/21 21:37 Urine Appearance Hazy (CLEAR) 09/27/21 21:37 Urine pH 6.0 (5.0 - 8.0) 09/27/21 21:37 Ur Specific [place] 1.010 (1.000-1.030) 09/27/21 21:37 Urine Protein 3+ (NEGATIVE) 09/27/21 21:37 Urine Glucose (UA) Negative (NEGATIVE) 09/27/21 21:37 Urine Ketones Negative (NEGATIVE) 09/27/21 21:37 Urine Occult Blood 5+ (NEGATIVE) 09/27/21 21:37 Urine Nitrite Negative (NEGATIVE) 09/27/21 21:37 Urine Bilirubin Negative (NEGATIVE) 09/27/21 21:37 Urine Urobilinogen Normal (NORMAL) 09/27/21 21:37 Ur Leukocyte Esterase 3+ (NEGATIVE) 09/27/21 21:37 Urine RBC Tntc /HPF (0-3) A 09/27/21 21:37 Urine WBC 10-20 /HPF (0-5) A 09/27/21 21:37 Ur Squamous Epith Cells Rare /HPF (NEGATIVE) 09/27/21 21:37 Urine Bacteria 2+ /HPF (NEGATIVE) 09/27/21 21:37 Urine Mucus Few /HPF (NEGATIVE) 09/27/21 21:37 Ur Culture Indicated? Yes/culture set up 09/27/21 21:37 SARS-CoV-2 (PCR) Negative (NEGATIVE) 09/27/21 20:42 Influenza Type A (PCR) Negative (NEGATIVE) 09/27/21 20:42 Influenza Type B (PCR) Negative (NEGATIVE) 09/27/21 20:42 RSV (PCR) Negative (NEGATIVE) 09/27/21 20:42 XRAY XRAY Interpreted by: Radiologist X-ray Results: cxr: Stable mild cardiomegaly without CHF or additional acute cardiopulmonary abnormality. Opioid <Micah Ashley - Last Filed: 10/02/21 08:44> Opioid Risk Tool Age ([place] if 16-45): No History of Preadolescent Sexual Abuse: No Total: 0 Total Score Risk Category: Low Risk Copyright: Leandro SANCHEZ predicting aberrant behaviors <Susan Booker - Last Filed: 09/28/21 07:47> Opioid Risk Tool Total: 0 Total Score Risk Category: Low Risk <Micahnathen Ramirez - Last Filed: 10/02/21 08:44> Diagnosis Discharge Problem: Cystitis, Hyperkalemia CRF (chronic renal failure) Qualifiers: Chronic kidney disease stage: stage 4 (severe) Qualified Code(s): N18.4 - Chronic kidney disease, stage 4 (severe)
--- NOTE | 2021-09-27 18:32 | RAD ---
HISTORYFEVER, CONGESTION, AMS Relevant Clinical InformationSTUDYCHEST, 1 [id number]/31/2021FINDINGSThere is stable mild enlargement of the cardiac silhouette without congestive failure. Previous median sternotomy and left-sided pacemaker noted. No acute alveolar infiltrate or significant effusion is identified. No pneumothorax.IMPRESSIONStable mild cardiomegaly without CHF or additional acute cardiopulmonary abnormality.Electronically signed by: MARY MENDOZA (Sep 27, 2021 18:30:43)
[2021-09-27 19:06] LABS: BASOPHILS # (AUTO) 0.1 X10^3/uL (0.0-0.1); BASOPHILS % (AUTO) 0.4 % (0.2-1.0); HEMATOCRIT 24.1 % (42.0-54.0); HEMOGLOBIN 8.1 g/dL (13.5-18.0); LYMPHOCYTES # (AUTO) 0.2 X10^3/uL (1.3-2.9); MEAN CORPUSCULAR HEMOGLOBIN 30.9 pg (27.0-34.0); MEAN CORPUSCULAR HGB CONC 33.6 g/dL (33.0-35.0); MEAN CORPUSCULAR VOLUME 92.1 fL (80.0-100.0); MEAN PLATELET VOLUME 9.3 fL (7.4-11.0); MONOCYTES # (AUTO) 0.6 x10^3/uL (0.3-0.8); MONOCYTES % (AUTO) 4.2 % (0.0-13.0); NEUTROPHILS # (AUTO) 13.8 x10^3/uL (2.2-4.8); NEUTROPHILS % (AUTO) 94.4 % (42.0-75.0); RED BLOOD COUNT 2.62 X10^6/uL (4.7-6.0); RED CELL DISTRIBUTION WIDTH 16.4 % (11.6-16.5); WHITE BLOOD COUNT 14.7 X10^3/uL (3.6-10.0)
[2021-09-27 19:22] LABS: PLATELET MORPHOLOGY COMMENT NORMAL (NORMAL)
[2021-09-27 19:26] LABS: LACTIC ACID 0.9 mmol/L (0.4-2.0)
[2021-09-27 19:30] LABS: ALANINE AMINOTRANSFERASE 24 Units/L (12-78); ALBUMIN 2.3 g/dL (3.4-5.0); ALKALINE PHOSPHATASE 71 Units/L (46-116); ASPARTATE AMINO TRANSFERASE 33 Units/L (15-37); BLOOD UREA NITROGEN 101 mg/dL (7-18); CALCIUM 9.1 mg/dL (8.5-10.1); CARBON DIOXIDE 29.2 mmol/L (21-32); CHLORIDE 101 mmol/L (98-107); CKMB % 0.6 % (<4); COR CA(FOR HYPOALB) 10.5 mg/dL (8.5-10.1); COR NA(FOR HYPERGLY) 140 mmol/L (136-145); CREATINE KINASE 156 Units/L (39-308); CREATINE KINASE MB < 1.0 ng/mL (0-4.0); CREATININE 4.84 mg/dL (0.70-1.30); LIPASE 84 Units/L (73-393); SODIUM 138 mmol/L (136-145); eGFR NON BLACK RACES 12 (>60)
[2021-09-27] MEDS ORDERED: ROCEPHIN 1 GRAM IV PREMIX 1 G/50 ML IV.SOLN. IV ONE ×2 (19:35→20:02)
[2021-09-27] MEDS ORDERED: NS 1,000 ML IV 1,000 ML IV SCH (20:00)
[2021-09-27] MEDS ORDERED: NS 1,000 ML IV 2,000 ML ONE (20:02)
[2021-09-27 21:44] LABS: BILIRUBIN,URINE NEGATIVE (NEGATIVE); BLOOD/HEMOGLOBIN,URINE 5+ (NEGATIVE); GLUCOSE, URINE NEGATIVE (NEGATIVE); KETONES,URINE NEGATIVE (NEGATIVE); LEUKOCYTE ESTERASE ,URINE 3+ (NEGATIVE); NITRITES,URINE NEGATIVE (NEGATIVE); PROTEIN,URINE 3+ (NEGATIVE); UROBILINOGEN,URINE NORMAL (NORMAL)
[2021-09-27 21:49] LABS: APPEARANCE,URINE HAZY (CLEAR); COLOR,URINE PINK (YELLOW)
[2021-09-27 21:59] LABS: BACTERIA,URINE 2+ /HPF (NEGATIVE); RBC,URINE TNTC /HPF (0-3); SQUAMOUS EPITHELIAL CELL,UR RARE /HPF (NEGATIVE)
[2021-09-27] MEDS ORDERED: KAYEXALATE SUSP RECTAL NR (23:45)
[2021-09-28] MEDS: ROCEPHIN VIAL 1 GRAM 1 G in NS 100 ML IV + SPIKE MINIBAG* 100 ML IV SCH ×2 (01:49→23:00)
[2021-09-28] MEDS ORDERED: KAYEXALATE SUSP ONE (01:52)
[2021-09-28] MEDS: NS 1,000 ML IV 1,000 ML IV SCH ×4 (01:56→20:36)
[2021-09-28] MEDS ORDERED: KAYEXALATE SUSP PO NR (02:00)
[2021-09-28 02:36] VITALS: BMI 16.5
[2021-09-28 04:22] LABS: BASOPHILS % (AUTO) 0.3 % (0.2-1.0); EOSINOPHILS % (AUTO) 0.2 % (0.9-2.9); HEMATOCRIT 23.3 % (42.0-54.0); HEMOGLOBIN 7.8 g/dL (13.5-18.0); LYMPHOCYTES # (AUTO) 0.3 X10^3/uL (1.3-2.9); LYMPHOCYTES % (AUTO) 2.4 % (21.0-51.0); MEAN CORPUSCULAR HEMOGLOBIN 30.8 pg (27.0-34.0); MEAN CORPUSCULAR HGB CONC 33.6 g/dL (33.0-35.0); MEAN CORPUSCULAR VOLUME 91.7 fL (80.0-100.0); MEAN PLATELET VOLUME 9.2 fL (7.4-11.0); MONOCYTES # (AUTO) 0.7 x10^3/uL (0.3-0.8); MONOCYTES % (AUTO) 5.7 % (0.0-13.0); NEUTROPHILS # (AUTO) 10.9 x10^3/uL (2.2-4.8); NEUTROPHILS % (AUTO) 91.4 % (42.0-75.0); RED BLOOD COUNT 2.55 X10^6/uL (4.7-6.0); RED CELL DISTRIBUTION WIDTH 16.1 % (11.6-16.5); WHITE BLOOD COUNT 11.9 X10^3/uL (3.6-10.0)
[2021-09-28 04:39] LABS: ALBUMIN 2.1 g/dL (3.4-5.0); CALCIUM 8.8 mg/dL (8.5-10.1); CARBON DIOXIDE 27.3 mmol/L (21-32); COR CA(FOR HYPOALB) 10.3 mg/dL (8.5-10.1); CREATININE 4.75 mg/dL (0.70-1.30); TOTAL PROTEIN 5.8 g/dL (6.4-8.2)
[2021-09-28 05:05] LABS: BAND NEUTROPHILS % 2 % (0-10); PLATELET MORPHOLOGY COMMENT NORMAL (NORMAL)
[2021-09-28] MEDS ORDERED: NS 1,000 ML IV 1,000 ML ONE (08:44)
--- NOTE | 2021-09-28 11:53 | DR.H&P ---
H&P - History & Physical for Day of: H&P Date: 09/27/21 - Chief Complaint Chief Complaint: Fever, diarrhea, cough - History of Present Illness History of Present Illness: Patient is an 86 year old AAM who is being admitted due to acute on chronic renal failure, UTI. Patient is currently on hospice at home however family sent patient to ER due to fever, diarrhea, cough, and confusion. PMH dementia, CKD, HTN, CAD (recent stents), multiple other conditions. History limited due to confusion. Patient is alert and answers yes or no questions. - Past Medical History Past Medical History: Angina, CT, Coronary Artery Disease, Hypertension, Diabetes, Renal Disease, Alzheimers, Dementia, Arthritis, CHF Additional Medical History: Prostate Cancer, Bronchitis, Constipation, chronic anemia, CKD - Past Surgical History Surgical History: Angioplasty/Stents, CABG/Valve Surgery - Family History Family Medical History: Diabetes Mellitus, Coronary Artery Disease, Heart Failure, Hypertension - Social History Does patient currently use any type of tobacco product: No Have you used tobacco products in the last 12 months: No Type of Tobacco Use: None Does any household member use tobacco: No Alcohol Use: None Drug Use: None - Medications Home Medications: Iodinated Contrast Media Allergy (Verified 09/27/21 17:27) ketorolac [From Toradol] Allergy (Verified 09/27/21 17:27) lisinopril Allergy (Verified 09/27/21 17:27) CONTINUE taking the following medications insulin aspart U-100 [Novolog U-100 Insulin aspart] 1 sliding scale dose SUBCUT USEASDIRECTD 09/27/21 [History] metolazone 2.5 mg PO QAM 09/27/21 [History] tamsulosin [Flomax] 0.4 mg PO QAM 09/27/21 [History] - Review of Systems Constitutional: See HPI Eyes: See HPI ENT: See HPI Respiratory: See HPI Cardiovascular: See HPI Gastrointestinal: See HPI Genitourinary: See HPI Musculoskeletal: See HPI Skin: See HPI Neurological: See HPI - Physical Exam Vital Signs: Temperature 97.9 F Pulse Rate [Apical] 67 Pulse Rate 70 Respiratory Rate 18 Blood Pressure [Left Arm] 117/66 Blood Pressure 132/72 O2 Sat by Pulse Oximetry 100 Oriented: Not Oriented Eyes: Normal Ear: Normal Nose: Normal Throat: Normal Respiratory: Diminished Throughout, Rhonchi Throughout Cardiovascular: Normal : Other (Chronic indwelling wade cath due to BPH) Auscultation: Bowel Sounds: Normal Palpation: Normal Tenderness: Normal Skin: Decreased Turgur Musculoskeletal: Right, Left, Shoulder, Back:Thoracic, Back:Lumbar, Back:Midline, Tender, Instability Mood Description: Calm, Flat Affect: Flat Speech Pattern: Clear, Inappropriate - Assessment/Plan (1) Urinary tract infection Qualifiers: Urinary tract infection type: acute cystitis Hematuria presence: with hematuria Qualified Code(s): N30.01 - Acute cystitis with hematuria Status: Acute Plan: IV abx. Cultures pending (2) Acute on chronic renal failure Status: Acute Plan: IV fluids. Monitor (3) Weakness generalized Status: Chronic (4) Failure to thrive syndrome, adult Status: Chronic Plan: Hospice at home (5) Hyperkalemia Status: Acute (6) BPH (benign prostatic hyperplasia) Status: Chronic Plan: Chronic wade (7) Coronary artery disease Status: Chronic Plan: home meds - Allergies Allergies/Adverse Reactions: Allergies Allergy/AdvReac Type Severity Reaction Status Date / Time Iodinated Contrast Media Allergy Verified 09/27/21 17:27 ketorolac [From Toradol] Allergy Verified 09/27/21 17:27 lisinopril Allergy Verified 09/27/21 17:27
--- NOTE | 2021-09-28 12:01 | PCM.PROG ---
Progress Note - Subjective Subjective: Patient is an 86 year old AAM admitted due to UTI. Culture pending. Currently on IV Rocephin. Gentle hydration. PMH of CKD however creatnine is worse than baseline. No family at bedside today. - Past Medical Family Social History Past Med/Fam/Surg Hx: No changes since H&P Allergies: Allergies Iodinated Contrast Media Allergy (Verified 09/27/21 17:27) ketorolac [From Toradol] Allergy (Verified 09/27/21 17:27) lisinopril Allergy (Verified 09/27/21 17:27) - Review of Systems ROS: No change since H&P - Vital Signs and I&O's Vital Signs: Temperature 97.9 F Pulse Rate [Apical] 67 Pulse Rate 70 Respiratory Rate 18 Blood Pressure [Left Arm] 117/66 Blood Pressure 132/72 O2 Sat by Pulse Oximetry 100 Intake and Output: Intake & Output 09/25/21 09/26/21 09/27/21 09/28/21 23:59 23:59 23:59 23:59 Intake Total 1833 / 1833 Output Total 375 / 375 Balance 1458 / 1458 - Physical Exam Oriented: Not Oriented Eyes: Normal Ear: Normal Nose: Normal Throat: Normal Respiratory: Generalized, Diminished Cardiovascular: Normal : Other (Chronic indwelling wade cath due to BPH) Auscultation: Bowel Sounds: Normal Palpation: Normal Tenderness: Normal Skin: Decreased Turgur Musculoskeletal: Right, Left, Shoulder, Back:Thoracic, Back:Lumbar, Back:Midline, Tender, Instability Mood Description: Calm, Flat Affect: Flat Speech Pattern: Clear, Inappropriate - Laboratory and Diagnostics Result Diagrams: 09/28/21 03:51 09/28/21 03:51 Labs: 09/27/21 18:50 Blood Blood Culture - Preliminary 09/27/21 18:45 Blood Blood Culture - Preliminary Laboratory WBC 11.9 X10^3/uL (3.6-10.0) H 09/28/21 03:51 RBC 2.55 X10^6/uL (4.7-6.0) L 09/28/21 03:51 Hgb 7.8 g/dL (13.5-18.0) L 09/28/21 03:51 Hct 23.3 % (42.0-54.0) L 09/28/21 03:51 MCV 91.7 fL (80.0-100.0) 09/28/21 03:51 MCH 30.8 pg (27.0-34.0) 09/28/21 03:51 MCHC 33.6 g/dL (33.0-35.0) 09/28/21 03:51 RDW 16.1 % (11.6-16.5) 09/28/21 03:51 Plt Count 101 X10^3/uL (150.0-450.0) L 09/28/21 03:51 Plt Count Comment Decreased (ADEQUATE) 09/28/21 03:51 MPV 9.2 fL (7.4-11.0) 09/28/21 03:51 Neut % (Auto) 91.4 % (42.0-75.0) H 09/28/21 03:51 Lymph % (Auto) 2.4 % (21.0-51.0) L 09/28/21 03:51 [place] % (Auto) 5.7 % (0.0-13.0) 09/28/21 03:51 Eos % (Auto) 0.2 % (0.9-2.9) L 09/28/21 03:51 Baso % (Auto) 0.3 % (0.2-1.0) 09/28/21 03:51 Neut # (Auto) 10.9 x10^3/uL (2.2-4.8) H 09/28/21 03:51 Lymph # (Auto) 0.3 X10^3/uL (1.3-2.9) L 09/28/21 03:51 [place] # (Auto) 0.7 x10^3/uL (0.3-0.8) 09/28/21 03:51 Eos # (Auto) 0.0 x10^3/uL (0.0-0.2) 09/28/21 03:51 Baso # (Auto) 0.0 X10^3/uL (0.0-0.1) 09/28/21 03:51 Absolute Nucleated RBC 0.0 /100WBC 09/28/21 03:51 Total Counted 100 09/28/21 03:51 Neutrophils % (Manual) 90 % (39-76) H 09/28/21 03:51 Band Neutrophils % 2 % (0-10) 09/28/21 03:51 Lymphocytes % (Manual) 3 % (13-43) L 09/28/21 03:51 Monocytes % (Manual) 5 % (4-9) 09/28/21 03:51 Plt Morphology Comment Normal (NORMAL) 09/28/21 03:51 RBC Morphology Normal (NORMAL) 09/28/21 03:51 Sodium 140 mmol/L (136-145) 09/28/21 03:51 Corrected Sodium 141 mmol/L (136-145) 09/28/21 03:51 Potassium 5.1 mmol/L (3.5-5.1) 09/28/21 03:51 Chloride 104 mmol/L (98-107) 09/28/21 03:51 Carbon Dioxide 27.3 mmol/L (21-32) 09/28/21 03:51 BUN 100 mg/dL (7-18) H 09/28/21 03:51 Creatinine 4.75 mg/dL (0.70-1.30) H 09/28/21 03:51 Est GFR (MDRD) Af Amer 15 (>60) L 09/28/21 03:51 Est GFR (MDRD) Non-Af 12 (>60) L 09/28/21 03:51 Glucose 132 mg/dL (65-99) H 09/28/21 03:51 Lactic Acid 0.9 mmol/L (0.4-2.0) 09/27/21 18:45 Calcium 8.8 mg/dL (8.5-10.1) 09/28/21 03:51 Corrected Calcium 10.3 mg/dL (8.5-10.1) H 09/28/21 03:51 Total Bilirubin 0.40 mg/dL (0.2-1.0) 09/28/21 03:51 AST 31 Units/L (15-37) 09/28/21 03:51 ALT 20 Units/L (12-78) 09/28/21 03:51 Alkaline Phosphatase 67 Units/L (46-116) 09/28/21 03:51 Creatine Kinase 156 Units/L (39-308) 09/27/21 18:45 CK-MB (CK-2) < 1.0 ng/mL (0-4.0) 09/27/21 18:45 CK/CKMB % Calc 0.6 % (<4) 09/27/21 18:45 Troponin I High Sens 52.1 ng/L (4.0-60.0) 09/27/21 18:45 Total Protein 5.8 g/dL (6.4-8.2) L 09/28/21 03:51 Albumin 2.1 g/dL (3.4-5.0) L 09/28/21 03:51 Globulin 3.7 g/dL (2.5-4.5) 09/28/21 03:51 Albumin/Globulin Ratio 0.6 Ratio (1.1-2.1) L 09/28/21 03:51 Lipase 84 Units/L (73-393) 09/27/21 18:45 Specimen Type Catherized urine 09/27/21 21:37 Urine Color [place] (YELLOW) 09/27/21 21:37 Urine Appearance Hazy (CLEAR) 09/27/21 21:37 Urine pH 6.0 (5.0 - 8.0) 09/27/21 21:37 Ur Specific [place] 1.010 (1.000-1.030) 09/27/21 21:37 Urine Protein 3+ (NEGATIVE) 09/27/21 21:37 Urine Glucose (UA) Negative (NEGATIVE) 09/27/21 21:37 Urine Ketones Negative (NEGATIVE) 09/27/21 21:37 Urine Occult Blood 5+ (NEGATIVE) 09/27/21 21:37 Urine Nitrite Negative (NEGATIVE) 09/27/21 21:37 Urine Bilirubin Negative (NEGATIVE) 09/27/21 21:37 Urine Urobilinogen Normal (NORMAL) 09/27/21 21:37 Ur Leukocyte Esterase 3+ (NEGATIVE) 09/27/21 21:37 Urine RBC Tntc /HPF (0-3) A 09/27/21 21:37 Urine WBC 10-20 /HPF (0-5) A 09/27/21 21:37 Ur Squamous Epith Cells Rare /HPF (NEGATIVE) 09/27/21 21:37 Urine Bacteria 2+ /HPF (NEGATIVE) 09/27/21 21:37 Urine Mucus Few /HPF (NEGATIVE) 09/27/21 21:37 Ur Culture Indicated? Yes/culture set up 09/27/21 21:37 SARS-CoV-2 (PCR) Negative (NEGATIVE) 09/27/21 20:42 Influenza Type A (PCR) Negative (NEGATIVE) 09/27/21 20:42 Influenza Type B (PCR) Negative (NEGATIVE) 09/27/21 20:42 RSV (PCR) Negative (NEGATIVE) 09/27/21 20:42 - Plan (1) Urinary tract infection Status: Acute Qualifiers: Urinary tract infection type: acute cystitis Hematuria presence: with hematuria Qualified Code(s): N30.01 - Acute cystitis with hematuria Plan: IV abx. Cultures pending (2) Acute on chronic renal failure Status: Acute Plan: IV fluids. 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
[2021-09-28] MEDS ORDERED: INSULIN ASPART U 100 UNIT/ML SUBCUT SCH (12:30)
[2021-09-28] MEDS ORDERED: MELATONIN 3 MG PO SCH (12:30)
[2021-09-28] MEDS ORDERED: [UNRECOGNIZED DRUG - OTHER] SUBCUT SCH (12:30)
[2021-09-28] MEDS ORDERED: APRESOLINE TAB 25 MG PO SCH (13:00)
[2021-09-28] MEDS: ASPIRIN EC 81 MG PO SCH (15:58)
[2021-09-28] MEDS: LIPITOR TAB 80 MG PO SCH (20:40)
[2021-09-28] MEDS: PROSCAR PO SCH (20:40)
[2021-09-28] MEDS: COREG TAB 25 MG PO SCH (20:40)
[2021-09-28] MEDS: SNACK - Diabetic Appropriate PO SCH (20:40)
[2021-09-29] MEDS: NS 1,000 ML IV 1,000 ML IV SCH ×4 (05:27→21:00)
[2021-09-29 05:49] LABS: BASOPHILS % (AUTO) 0.5 % (0.2-1.0); EOSINOPHILS # (AUTO) 0.2 x10^3/uL (0.0-0.2); EOSINOPHILS % (AUTO) 1.9 % (0.9-2.9); HEMATOCRIT 24.8 % (42.0-54.0); HEMOGLOBIN 8.4 g/dL (13.5-18.0); LYMPHOCYTES # (AUTO) 0.3 X10^3/uL (1.3-2.9); LYMPHOCYTES % (AUTO) 2.5 % (21.0-51.0); MEAN CORPUSCULAR HGB CONC 33.9 g/dL (33.0-35.0); MEAN CORPUSCULAR VOLUME 91.5 fL (80.0-100.0); MEAN PLATELET VOLUME 9.7 fL (7.4-11.0); MONOCYTES # (AUTO) 0.6 x10^3/uL (0.3-0.8); MONOCYTES % (AUTO) 6.2 % (0.0-13.0); NEUTROPHILS # (AUTO) 9.1 x10^3/uL (2.2-4.8); NEUTROPHILS % (AUTO) 88.9 % (42.0-75.0); RED BLOOD COUNT 2.71 X10^6/uL (4.7-6.0); RED CELL DISTRIBUTION WIDTH 16.4 % (11.6-16.5); WHITE BLOOD COUNT 10.2 X10^3/uL (3.6-10.0)
[2021-09-29 05:55] LABS: ALBUMIN 1.9 g/dL (3.4-5.0); CALCIUM 8.6 mg/dL (8.5-10.1); CARBON DIOXIDE 25.4 mmol/L (21-32); COR CA(FOR HYPOALB) 10.3 mg/dL (8.5-10.1); CREATININE 4.02 mg/dL (0.70-1.30); TOTAL PROTEIN 5.4 g/dL (6.4-8.2)
[2021-09-29] MEDS: COREG TAB 25 MG PO SCH ×3 (07:14→20:54)
[2021-09-29] MEDS ORDERED: LEXAPRO ONE (08:07)
[2021-09-29] MEDS: ASPIRIN EC 81 MG PO SCH (08:19)
[2021-09-29] MEDS: LEXAPRO PO SCH (08:20)
[2021-09-29] MEDS: HEMOCYTE-PLUS PO SCH (08:20)
[2021-09-29] MEDS: BUMEX TAB 1 MG PO SCH (08:20)
[2021-09-29] MEDS: ISOSORBIDE MONONITRATE ER 24-HR PO SCH (08:20)
[2021-09-29] MEDS: FLOMAX PO SCH (08:20)
[2021-09-29] MEDS: ZAROXOLYN PO SCH (08:21)
[2021-09-29] MEDS ORDERED: ALDACTONE TAB 25 MG PO SCH (09:00)
[2021-09-29] MEDS ORDERED: FOLIC ACID 400 MCG PO SCH (09:00)
--- NOTE | 2021-09-29 12:59 | PCM.PROG ---
Progress Note Progress Note for Day of Date of Exam: 09/29/21 Subjective Subjective: Patient seen at bedside, no events overnight. He is sleeping during rounds. He initially was not sure where he was but then was able to be redirected. He is currently being treated for UTI and acute on chronic renal failure. His Blood Cx did come back positive. Labs/imaging reviewed Plan: Repeat blood cultures, follow final urine and blood Cx results. Continue IV Rocephin and hydration. Monitor renal function. Continue home medications. Monitor AM labs/imaging. PT/OT as tolerated. Past Medical Family Social History Past Med/Fam/Surg Hx: No changes since H&P Allergies: Allergies Iodinated Contrast Media Allergy (Verified 09/27/21 17:27) ketorolac [From Toradol] Allergy (Verified 09/27/21 17:27) lisinopril Allergy (Verified 09/27/21 17:27) Review of Systems ROS: No change since H&P Vital Signs and I&O's Vital Signs: Temperature 98.2 F Pulse Rate [Apical] 72 Pulse Rate 70 Respiratory Rate 18 Blood Pressure [Left Arm] 108/60 Blood Pressure 132/72 O2 Sat by Pulse Oximetry 95 Intake and Output: Intake & Output 09/26/21 09/27/21 09/28/21 09/29/21 23:59 23:59 23:59 23:59 Intake Total 2696 / 2696 670 / 670 Output Total 1100 / 1100 175 / 175 Balance 1596 / 1596 495 / 495 Physical Exam Oriented: Not Oriented Eyes: Normal Ear: Normal Nose: Normal Throat: Normal Respiratory: Generalized and Diminished Cardiovascular: Normal : Other (Chronic indwelling wade cath due to BPH) Auscultation: Bowel Sounds: Normal Tenderness: Normal Skin: Decreased Turgur Musculoskeletal: Right, Left, Shoulder, Back:Thoracic, Back:Lumbar, Back:Midline, Tender and Instability Mood Description: Calm and Flat Affect: Flat Speech Pattern: Clear and Delayed Laboratory and Diagnostics Result Diagrams: 09/29/21 05:02 09/29/21 05:02 Labs: 09/27/21 21:37 Urine,Catheterized Urine Culture - Preliminary 09/27/21 18:50 Blood Blood Culture - Preliminary 09/27/21 18:45 Blood Blood Culture - Preliminary Laboratory WBC 10.2 X10^3/uL (3.6-10.0) H 09/29/21 05:02 RBC 2.71 X10^6/uL (4.7-6.0) L 09/29/21 05:02 Hgb 8.4 g/dL (13.5-18.0) L 09/29/21 05:02 Hct 24.8 % (42.0-54.0) L 09/29/21 05:02 MCV 91.5 fL (80.0-100.0) 09/29/21 05:02 MCH 31.0 pg (27.0-34.0) 09/29/21 05:02 MCHC 33.9 g/dL (33.0-35.0) 09/29/21 05:02 RDW 16.4 % (11.6-16.5) 09/29/21 05:02 Plt Count 97 X10^3/uL (150.0-450.0) L 09/29/21 05:02 Plt Count Comment Decreased (ADEQUATE) 09/28/21 03:51 MPV 9.7 fL (7.4-11.0) 09/29/21 05:02 Neut % (Auto) 88.9 % (42.0-75.0) H 09/29/21 05:02 Lymph % (Auto) 2.5 % (21.0-51.0) L 09/29/21 05:02 [place] % (Auto) 6.2 % (0.0-13.0) 09/29/21 05:02 Eos % (Auto) 1.9 % (0.9-2.9) 09/29/21 05:02 Baso % (Auto) 0.5 % (0.2-1.0) 09/29/21 05:02 Neut # (Auto) 9.1 x10^3/uL (2.2-4.8) H 09/29/21 05:02 Lymph # (Auto) 0.3 X10^3/uL (1.3-2.9) L 09/29/21 05:02 [place] # (Auto) 0.6 x10^3/uL (0.3-0.8) 09/29/21 05:02 Eos # (Auto) 0.2 x10^3/uL (0.0-0.2) 09/29/21 05:02 Baso # (Auto) 0.0 X10^3/uL (0.0-0.1) 09/29/21 05:02 Absolute Nucleated RBC 0.0 /100WBC 09/29/21 05:02 Total Counted 100 09/28/21 03:51 Neutrophils % (Manual) 90 % (39-76) H 09/28/21 03:51 Band Neutrophils % 2 % (0-10) 09/28/21 03:51 Lymphocytes % (Manual) 3 % (13-43) L 09/28/21 03:51 Monocytes % (Manual) 5 % (4-9) 09/28/21 03:51 Plt Morphology Comment Normal (NORMAL) 09/28/21 03:51 RBC Morphology Normal (NORMAL) 09/28/21 03:51 Sodium 141 mmol/L (136-145) 09/29/21 05:02 Corrected Sodium 142 mmol/L (136-145) 09/29/21 05:02 Potassium 4.0 mmol/L (3.5-5.1) 09/29/21 05:02 Chloride 105 mmol/L (98-107) 09/29/21 05:02 Carbon Dioxide 25.4 mmol/L (21-32) 09/29/21 05:02 BUN 92 mg/dL (7-18) H 09/29/21 05:02 Creatinine 4.02 mg/dL (0.70-1.30) H 09/29/21 05:02 Est GFR (MDRD) Af Amer 18 (>60) L 09/29/21 05:02 Est GFR (MDRD) Non-Af 15 (>60) L 09/29/21 05:02 Glucose 134 mg/dL (65-99) H 09/29/21 05:02 POC Glucose (mg/dL) 145 mg/dL (65-99) H 09/29/21 11:04 Lactic Acid 0.9 mmol/L (0.4-2.0) 09/27/21 18:45 Calcium 8.6 mg/dL (8.5-10.1) 09/29/21 05:02 Corrected Calcium 10.3 mg/dL (8.5-10.1) H 09/29/21 05:02 Total Bilirubin 0.30 mg/dL (0.2-1.0) 09/29/21 05:02 AST 29 Units/L (15-37) 09/29/21 05:02 ALT 20 Units/L (12-78) 09/29/21 05:02 Alkaline Phosphatase 65 Units/L (46-116) 09/29/21 05:02 Creatine Kinase 156 Units/L (39-308) 09/27/21 18:45 CK-MB (CK-2) < 1.0 ng/mL (0-4.0) 09/27/21 18:45 CK/CKMB % Calc 0.6 % (<4) 09/27/21 18:45 Troponin I High Sens 52.1 ng/L (4.0-60.0) 09/27/21 18:45 Total Protein 5.4 g/dL (6.4-8.2) L 09/29/21 05:02 Albumin 1.9 g/dL (3.4-5.0) L 09/29/21 05:02 Globulin 3.5 g/dL (2.5-4.5) 09/29/21 05:02 Albumin/Globulin Ratio 0.5 Ratio (1.1-2.1) L 09/29/21 05:02 Lipase 84 Units/L (73-393) 09/27/21 18:45 Specimen Type Catherized urine 09/27/21 21:37 Urine Color [place] (YELLOW) 09/27/21 21:37 Urine Appearance Hazy (CLEAR) 09/27/21 21:37 Urine pH 6.0 (5.0 - 8.0) 09/27/21 21:37 Ur Specific [place] 1.010 (1.000-1.030) 09/27/21 21:37 Urine Protein 3+ (NEGATIVE) 09/27/21 21:37 Urine Glucose (UA) Negative (NEGATIVE) 09/27/21 21:37 Urine Ketones Negative (NEGATIVE) 09/27/21 21:37 Urine Occult Blood 5+ (NEGATIVE) 09/27/21 21:37 Urine Nitrite Negative (NEGATIVE) 09/27/21 21:37 Urine Bilirubin Negative (NEGATIVE) 09/27/21 21:37 Urine Urobilinogen Normal (NORMAL) 09/27/21 21:37 Ur Leukocyte Esterase 3+ (NEGATIVE) 09/27/21 21:37 Urine RBC Tntc /HPF (0-3) A 09/27/21 21:37 Urine WBC 10-20 /HPF (0-5) A 09/27/21 21:37 Ur Squamous Epith Cells Rare /HPF (NEGATIVE) 09/27/21 21:37 Urine Bacteria 2+ /HPF (NEGATIVE) 09/27/21 21:37 Urine Mucus Few /HPF (NEGATIVE) 09/27/21 21:37 Ur Culture Indicated? Yes/culture set up 09/27/21 21:37 SARS-CoV-2 (PCR) Negative (NEGATIVE) 09/27/21 20:42 Influenza Type A (PCR) Negative (NEGATIVE) 09/27/21 20:42 Influenza Type B (PCR) Negative (NEGATIVE) 09/27/21 20:42 RSV (PCR) Negative (NEGATIVE) 09/27/21 20:42 Plan (1) Urinary tract infection: Status: Acute Qualifiers: Hematuria presence: with hematuria Urinary tract infection type: acute cystitis Qualified Code(s): N30.01 - Acute cystitis with hematuria (2) Acute on chronic renal failure: Status: Acute Qualifiers: Acute renal failure type: unspecified Chronic kidney disease stage: unspecified stage Qualified Code(s): N17.9 - Acute kidney failure, unspecified; N18.9 - Chronic kidney disease, unspecified (3) Weakness generalized: Status: Chronic (4) Failure to thrive syndrome, adult: Status: Chronic Plan: Hospice at home (5) Hyperkalemia: Status: Resolved (6) BPH (benign prostatic hyperplasia): Status: Chronic Qualifiers: Lower urinary tract symptom presence: unspecified whether lower urinary tract symptoms present Qualified Code(s): N40.0 - Benign prostatic hyperplasia without lower urinary tract symptoms (7) Coronary artery disease: Status: Chronic Qualifiers: Associated angina: unspecified whether angina present Coronary Disease- Associated Artery/Lesion type: unspecified vessel or lesion type [place] vs. transplanted heart: unspecified whether [place] or transplanted heart Qualified Code(s): I25.10 - Atherosclerotic heart disease of [place] coronary artery without angina pectoris
[2021-09-29] MEDS: PROSCAR PO SCH (20:54)
[2021-09-29] MEDS: LIPITOR TAB 80 MG PO SCH (20:54)
[2021-09-29] MEDS: SNACK - Diabetic Appropriate PO SCH (20:55)
[2021-09-29] MEDS: ROCEPHIN VIAL 1 GRAM 1 G in NS 100 ML IV + SPIKE MINIBAG* 100 ML IV SCH (22:57)
[2021-09-30] MEDS: NS 1,000 ML IV 1,000 ML IV SCH ×3 (04:46→17:24)
[2021-09-30 06:15] LABS: BASOPHILS # (AUTO) 0.1 X10^3/uL (0.0-0.1); BASOPHILS % (AUTO) 0.6 % (0.2-1.0); EOSINOPHILS # (AUTO) 0.2 x10^3/uL (0.0-0.2); EOSINOPHILS % (AUTO) 1.6 % (0.9-2.9); HEMATOCRIT 22.4 % (42.0-54.0); HEMOGLOBIN 7.5 g/dL (13.5-18.0); LYMPHOCYTES # (AUTO) 0.3 X10^3/uL (1.3-2.9); LYMPHOCYTES % (AUTO) 3.3 % (21.0-51.0); MEAN CORPUSCULAR HEMOGLOBIN 30.7 pg (27.0-34.0); MEAN CORPUSCULAR HGB CONC 33.5 g/dL (33.0-35.0); MEAN CORPUSCULAR VOLUME 91.7 fL (80.0-100.0); MONOCYTES # (AUTO) 0.7 x10^3/uL (0.3-0.8); MONOCYTES % (AUTO) 6.7 % (0.0-13.0); NEUTROPHILS % (AUTO) 87.8 % (42.0-75.0); RED BLOOD COUNT 2.44 X10^6/uL (4.7-6.0); RED CELL DISTRIBUTION WIDTH 16.3 % (11.6-16.5); WHITE BLOOD COUNT 10.2 X10^3/uL (3.6-10.0)
[2021-09-30 06:29] LABS: CALCIUM 8.4 mg/dL (8.5-10.1); CARBON DIOXIDE 24.5 mmol/L (21-32); CREATININE 3.74 mg/dL (0.70-1.30)
[2021-09-30] MEDS ORDERED: LEXAPRO ONE (09:03)
[2021-09-30] MEDS: BUMEX TAB 1 MG PO SCH (09:22)
[2021-09-30] MEDS: ASPIRIN EC 81 MG PO SCH (09:22)
[2021-09-30] MEDS: FLOMAX PO SCH (09:23)
[2021-09-30] MEDS: COREG TAB 25 MG PO SCH ×2 (09:23→20:55)
[2021-09-30] MEDS: HEMOCYTE-PLUS PO SCH (09:23)
[2021-09-30] MEDS: ISOSORBIDE MONONITRATE ER 24-HR PO SCH (09:24)
[2021-09-30] MEDS: ZAROXOLYN PO SCH (09:24)
[2021-09-30] MEDS: LEXAPRO PO SCH (09:24)
[2021-09-30] MEDS ORDERED: PHARMACY CONSULT - VANCOMYCIN XX SCH (11:00)
[2021-09-30] MEDS: VANCOMYCIN IV *PREMIX 1 G/200 ML BAG 1 G/200 ML PIGGYBACK IV SCH (11:53)
[2021-09-30] MEDS ORDERED: NS 500 ML IV 500 ML IV ONE ×2 (12:43→17:39)
--- NOTE | 2021-09-30 12:46 | PCM.PROG ---
Progress Note Progress Note for Day of Date of Exam: 09/30/21 Subjective Subjective: Patient seen at bedside, no events overnight. He is currently being treated for UTI and acute on chronic renal failure. His Blood Cx from admission growing Gram positive cocci. Repeat blood cultures from yesterday also positive. Patient has been afebrile. WBC stable. Labs/imaging reviewed Plan: Will consult pharmacy for Vancomycin, continue Rocephin. Order echo to eval for any vegetation due to Gram + Cocci bacteremia. Continue gentle hydration. Follow cultures. Patient's hgb 7.5, will transfuse 2 units PRBCs. Renal function improving. Monitor AM labs and imaging. Past Medical Family Social History Past Med/Fam/Surg Hx: No changes since H&P Allergies: Allergies Iodinated Contrast Media Allergy (Verified 09/27/21 17:27) ketorolac [From Toradol] Allergy (Verified 09/27/21 17:27) lisinopril Allergy (Verified 09/27/21 17:27) Review of Systems ROS: No change since H&P Vital Signs and I&O's Vital Signs: Temperature 97.5 F Pulse Rate [Apical] 83 Pulse Rate 70 Respiratory Rate 18 Blood Pressure [Left Arm] 92/54 Blood Pressure 132/72 O2 Sat by Pulse Oximetry 99 Intake and Output: Intake & Output 09/27/21 09/28/21 09/29/21 09/30/21 23:59 23:59 23:59 23:59 Intake Total 2696 / 2696 2390 / 2390 0 / 0 Output Total 1100 / 1100 1150 / 1150 150 / 150 Balance 1596 / 1596 1240 / 1240 -150 / -150 Physical Exam Oriented: Not Oriented Eyes: Normal Ear: Normal Nose: Normal Throat: Normal Respiratory: Generalized and Diminished Cardiovascular: Normal : Other (Chronic indwelling wade cath due to BPH) Auscultation: Bowel Sounds: Normal Tenderness: Normal Skin: Decreased Turgur Musculoskeletal: Right, Left, Shoulder, Back:Thoracic, Back:Lumbar, Back:Midline, Tender and Instability Mood Description: Calm and Flat Affect: Flat Speech Pattern: Unclear and Delayed Laboratory and Diagnostics Result Diagrams: 09/30/21 05:20 09/30/21 05:20 Labs: 09/27/21 18:50 Blood Blood Culture - Final Enterococcus Faecalis 09/27/21 18:45 Blood Blood Culture - Final Enterococcus Faecalis 09/29/21 09:51 Blood Blood Culture - Preliminary 09/29/21 10:14 Blood Blood Culture - Preliminary 09/27/21 21:37 Urine,Catheterized Urine Culture - Preliminary Laboratory WBC 10.2 X10^3/uL (3.6-10.0) H 09/30/21 05:20 RBC 2.44 X10^6/uL (4.7-6.0) L 09/30/21 05:20 Hgb 7.5 g/dL (13.5-18.0) L 09/30/21 05:20 Hct 22.4 % (42.0-54.0) L 09/30/21 05:20 MCV 91.7 fL (80.0-100.0) 09/30/21 05:20 MCH 30.7 pg (27.0-34.0) 09/30/21 05:20 MCHC 33.5 g/dL (33.0-35.0) 09/30/21 05:20 RDW 16.3 % (11.6-16.5) 09/30/21 05:20 Plt Count 82 X10^3/uL (150.0-450.0) L 09/30/21 05:20 Plt Count Comment Decreased (ADEQUATE) 09/28/21 03:51 MPV 10.0 fL (7.4-11.0) 09/30/21 05:20 Neut % (Auto) 87.8 % (42.0-75.0) H 09/30/21 05:20 Lymph % (Auto) 3.3 % (21.0-51.0) L 09/30/21 05:20 [place] % (Auto) 6.7 % (0.0-13.0) 09/30/21 05:20 Eos % (Auto) 1.6 % (0.9-2.9) 09/30/21 05:20 Baso % (Auto) 0.6 % (0.2-1.0) 09/30/21 05:20 Neut # (Auto) 9.0 x10^3/uL (2.2-4.8) H 09/30/21 05:20 Lymph # (Auto) 0.3 X10^3/uL (1.3-2.9) L 09/30/21 05:20 [place] # (Auto) 0.7 x10^3/uL (0.3-0.8) 09/30/21 05:20 Eos # (Auto) 0.2 x10^3/uL (0.0-0.2) 09/30/21 05:20 Baso # (Auto) 0.1 X10^3/uL (0.0-0.1) 09/30/21 05:20 Absolute Nucleated RBC 0.0 /100WBC 09/30/21 05:20 Total Counted 100 09/28/21 03:51 Neutrophils % (Manual) 90 % (39-76) H 09/28/21 03:51 Band Neutrophils % 2 % (0-10) 09/28/21 03:51 Lymphocytes % (Manual) 3 % (13-43) L 09/28/21 03:51 Monocytes % (Manual) 5 % (4-9) 09/28/21 03:51 Plt Morphology Comment Normal (NORMAL) 09/28/21 03:51 RBC Morphology Normal (NORMAL) 09/28/21 03:51 Sodium 141 mmol/L (136-145) 09/30/21 05:20 Corrected Sodium 142 mmol/L (136-145) 09/30/21 05:20 Potassium 3.5 mmol/L (3.5-5.1) 09/30/21 05:20 Chloride 106 mmol/L (98-107) 09/30/21 05:20 Carbon Dioxide 24.5 mmol/L (21-32) 09/30/21 05:20 BUN 88 mg/dL (7-18) H 09/30/21 05:20 Creatinine 3.74 mg/dL (0.70-1.30) H 09/30/21 05:20 Est GFR (MDRD) Af Amer 20 (>60) L 09/30/21 05:20 Est GFR (MDRD) Non-Af 16 (>60) L 09/30/21 05:20 Glucose 139 mg/dL (65-99) H 09/30/21 05:20 POC Glucose (mg/dL) 199 mg/dL (65-99) H 09/30/21 11:31 Lactic Acid 0.9 mmol/L (0.4-2.0) 09/27/21 18:45 Calcium 8.4 mg/dL (8.5-10.1) L 09/30/21 05:20 Corrected Calcium 10.3 mg/dL (8.5-10.1) H 09/29/21 05:02 Total Bilirubin 0.30 mg/dL (0.2-1.0) 09/29/21 05:02 AST 29 Units/L (15-37) 09/29/21 05:02 ALT 20 Units/L (12-78) 09/29/21 05:02 Alkaline Phosphatase 65 Units/L (46-116) 09/29/21 05:02 Creatine Kinase 156 Units/L (39-308) 09/27/21 18:45 CK-MB (CK-2) < 1.0 ng/mL (0-4.0) 09/27/21 18:45 CK/CKMB % Calc 0.6 % (<4) 09/27/21 18:45 Troponin I High Sens 52.1 ng/L (4.0-60.0) 09/27/21 18:45 Total Protein 5.4 g/dL (6.4-8.2) L 09/29/21 05:02 Albumin 1.9 g/dL (3.4-5.0) L 09/29/21 05:02 Globulin 3.5 g/dL (2.5-4.5) 09/29/21 05:02 Albumin/Globulin Ratio 0.5 Ratio (1.1-2.1) L 09/29/21 05:02 Lipase 84 Units/L (73-393) 09/27/21 18:45 Specimen Type Catherized urine 09/27/21 21:37 Urine Color [place] (YELLOW) 09/27/21 21:37 Urine Appearance Hazy (CLEAR) 09/27/21 21:37 Urine pH 6.0 (5.0 - 8.0) 09/27/21 21:37 Ur Specific [place] 1.010 (1.000-1.030) 09/27/21 21:37 Urine Protein 3+ (NEGATIVE) 09/27/21 21:37 Urine Glucose (UA) Negative (NEGATIVE) 09/27/21 21:37 Urine Ketones Negative (NEGATIVE) 09/27/21 21:37 Urine Occult Blood 5+ (NEGATIVE) 09/27/21 21:37 Urine Nitrite Negative (NEGATIVE) 09/27/21 21:37 Urine Bilirubin Negative (NEGATIVE) 09/27/21 21:37 Urine Urobilinogen Normal (NORMAL) 09/27/21 21:37 Ur Leukocyte Esterase 3+ (NEGATIVE) 09/27/21 21:37 Urine RBC Tntc /HPF (0-3) A 09/27/21 21:37 Urine WBC 10-20 /HPF (0-5) A 09/27/21 21:37 Ur Squamous Epith Cells Rare /HPF (NEGATIVE) 09/27/21 21:37 Urine Bacteria 2+ /HPF (NEGATIVE) 09/27/21 21:37 Urine Mucus Few /HPF (NEGATIVE) 09/27/21 21:37 Ur Culture Indicated? Yes/culture set up 09/27/21 21:37 SARS-CoV-2 (PCR) Negative (NEGATIVE) 09/27/21 20:42 Influenza Type A (PCR) Negative (NEGATIVE) 09/27/21 20:42 Influenza Type B (PCR) Negative (NEGATIVE) 09/27/21 20:42 RSV (PCR) Negative (NEGATIVE) 09/27/21 20:42 Plan (1) Anemia: Status: Chronic Qualifiers: Anemia type: unspecified type Qualified Code(s): D64.9 - Anemia, unspecified (2) Gram-positive bacteremia: Status: Acute (3) Urinary tract infection: Status: Acute Qualifiers: Hematuria presence: with hematuria Urinary tract infection type: acute cystitis Qualified Code(s): N30.01 - Acute cystitis with hematuria (4) Acute on chronic renal failure: Status: Acute Qualifiers: Acute renal failure type: unspecified Chronic kidney disease stage: unspecified stage Qualified Code(s): N17.9 - Acute kidney failure, unspecified; N18.9 - Chronic kidney disease, unspecified (5) Weakness generalized: Status: Chronic (6) Failure to thrive syndrome, adult: Status: Chronic Plan: Hospice at home (7) Hyperkalemia: Status: Resolved Plan: Resolved with kayexalate (8) BPH (benign prostatic hyperplasia): Status: Chronic Qualifiers: Lower urinary tract symptom presence: unspecified whether lower urinary tract symptoms present Qualified Code(s): N40.0 - Benign prostatic hyperplasia without lower urinary tract symptoms Plan: Chronic wade (9) Coronary artery disease: Status: Chronic Qualifiers: Associated angina: unspecified whether angina present Coronary Disease- Associated Artery/Lesion type: unspecified vessel or lesion type [place] vs. transplanted heart: unspecified whether [place] or transplanted heart Qualified Code(s): I25.10 - Atherosclerotic heart disease of [place] coronary artery without angina pectoris Plan: home meds
[2021-09-30] MEDS: TYLENOL 325 MG TAB PO PRN (17:55)
[2021-09-30] MEDS: LIPITOR TAB 80 MG PO SCH (20:54)
[2021-09-30] MEDS: PROSCAR PO SCH (20:56)
[2021-09-30] MEDS: SNACK - Diabetic Appropriate PO SCH (21:37)
[2021-09-30] MEDS: ROCEPHIN VIAL 1 GRAM 1 G in NS 100 ML IV + SPIKE MINIBAG* 100 ML IV SCH (22:00)
[2021-09-30 22:19] LABS: HEMATOCRIT 27.1 % (42.0-54.0); HEMOGLOBIN 9.3 g/dL (13.5-18.0)
[2021-10-01] MEDS: NS 1,000 ML IV 1,000 ML IV SCH ×2 (04:44→17:53)
[2021-10-01 06:28] LABS: BASOPHILS # (AUTO) 0.1 X10^3/uL (0.0-0.1); BASOPHILS % (AUTO) 0.6 % (0.2-1.0); EOSINOPHILS # (AUTO) 0.2 x10^3/uL (0.0-0.2); EOSINOPHILS % (AUTO) 1.8 % (0.9-2.9); HEMATOCRIT 27.7 % (42.0-54.0); HEMOGLOBIN 9.5 g/dL (13.5-18.0); LYMPHOCYTES # (AUTO) 0.4 X10^3/uL (1.3-2.9); LYMPHOCYTES % (AUTO) 3.1 % (21.0-51.0); MEAN CORPUSCULAR HEMOGLOBIN 30.9 pg (27.0-34.0); MEAN CORPUSCULAR HGB CONC 34.3 g/dL (33.0-35.0); MEAN PLATELET VOLUME 9.9 fL (7.4-11.0); MONOCYTES # (AUTO) 0.9 x10^3/uL (0.3-0.8); NEUTROPHILS # (AUTO) 11.7 x10^3/uL (2.2-4.8); NEUTROPHILS % (AUTO) 87.5 % (42.0-75.0); RED BLOOD COUNT 3.07 X10^6/uL (4.7-6.0); RED CELL DISTRIBUTION WIDTH 16.6 % (11.6-16.5); WHITE BLOOD COUNT 13.4 X10^3/uL (3.6-10.0)
[2021-10-01 06:32] LABS: CALCIUM 8.2 mg/dL (8.5-10.1); CARBON DIOXIDE 22.3 mmol/L (21-32); CREATININE 3.19 mg/dL (0.70-1.30)
[2021-10-01] MEDS ORDERED: LEXAPRO ONE (08:15)
[2021-10-01] MEDS: ASPIRIN EC 81 MG PO SCH (08:18)
[2021-10-01] MEDS: LEXAPRO PO SCH (08:19)
[2021-10-01] MEDS: FLOMAX PO SCH (08:19)
[2021-10-01] MEDS: COREG TAB 25 MG PO SCH ×2 (08:19→21:35)
[2021-10-01] MEDS: BUMEX TAB 1 MG PO SCH (08:20)
[2021-10-01] MEDS: ISOSORBIDE MONONITRATE ER 24-HR PO SCH (08:20)
[2021-10-01] MEDS: ZAROXOLYN PO SCH (08:20)
[2021-10-01] MEDS: HEMOCYTE-PLUS PO SCH (09:23)
[2021-10-01] MEDS: VANCOMYCIN IV *PREMIX 1 G/200 ML BAG 1 G/200 ML PIGGYBACK IV SCH (10:22)
[2021-10-01] MEDS: NovoLIN R (or HumuLIN R) SUBCUT PRN (10:59)
--- NOTE | 2021-10-01 15:07 | PCM.PROG ---
Progress Note - Subjective Subjective: Patient seen at bedside, no events overnight. He is currently being treated for UTI and acute on chronic renal failure. His Blood Cx from admission growing Enterococcus facaelis on vanc and rocephin. Patient has been afebrile. WBC stable. Labs/imaging reviewed. Plan: Will consult pharmacy for Vancomycin, continue Rocephin. Order echo to eval for any vegetation due to Gram + Cocci bacteremia. Continue gentle hydration. Follow cultures. Patient's hgb 7.5, will transfuse 2 units PRBCs. Renal function improving. Monitor AM labs and imaging. - Past Medical Family Social History Past Med/Fam/Surg Hx: No changes since H&P Allergies: Allergies Iodinated Contrast Media Allergy (Verified 09/27/21 17:27) ketorolac [From Toradol] Allergy (Verified 09/27/21 17:27) lisinopril Allergy (Verified 09/27/21 17:27) - Review of Systems ROS: No change since H&P - Vital Signs and I&O's Vital Signs: Temperature 97.8 F Pulse Rate [Apical] 78 Pulse Rate 70 Respiratory Rate 18 Blood Pressure [Right Arm] 107/59 Blood Pressure [Left Arm] 115/56 Blood Pressure 132/72 O2 Sat by Pulse Oximetry 98 Intake and Output: Intake & Output 09/28/21 09/29/21 09/30/21 10/01/21 23:59 23:59 23:59 23:59 Intake Total 2696 / 2696 2390 / 2390 4859 / 4859 1091 / 1091 Output Total 1100 / 1100 1150 / 1150 1825 / 1825 400 / 400 Balance 1596 / 1596 1240 / 1240 3034 / 3034 691 / 691 - Physical Exam Oriented: Not Oriented Eyes: Normal Ear: Normal Nose: Normal Throat: Normal Respiratory: Generalized, Diminished Cardiovascular: Normal : Other (Chronic indwelling wade cath due to BPH) Auscultation: Bowel Sounds: Normal Palpation: Normal Tenderness: Normal Skin: Decreased Turgur Musculoskeletal: Shoulder, Right, Left, Back:Thoracic, Back:Lumbar, Zach k:Midline, Tender, Instability Mood Description: Calm, Flat Affect: Flat Speech Pattern: Unclear, Delayed - Laboratory and Diagnostics Result Diagrams: 10/01/21 05:10 10/01/21 05:10 Labs: 09/27/21 21:37 Urine,Catheterized Urine Culture - Final Enterococcus Faecalis Staphylococcus Epidermidis 09/29/21 10:14 Blood Blood Culture - Final Enterococcus Faecalis 09/29/21 09:51 Blood Blood Culture - Final Enterococcus Faecalis 09/27/21 18:50 Blood Blood Culture - Final Enterococcus Faecalis 09/27/21 18:45 Blood Blood Culture - Final Enterococcus Faecalis Laboratory WBC 13.4 X10^3/uL (3.6-10.0) H 10/01/21 05:10 RBC 3.07 X10^6/uL (4.7-6.0) L 10/01/21 05:10 Hgb 9.5 g/dL (13.5-18.0) L 10/01/21 05:10 Hct 27.7 % (42.0-54.0) L 10/01/21 05:10 MCV 90.0 fL (80.0-100.0) 10/01/21 05:10 MCH 30.9 pg (27.0-34.0) 10/01/21 05:10 MCHC 34.3 g/dL (33.0-35.0) 10/01/21 05:10 RDW 16.6 % (11.6-16.5) H 10/01/21 05:10 Plt Count 67 X10^3/uL (150.0-450.0) L 10/01/21 05:10 Plt Count Comment Decreased (ADEQUATE) 09/28/21 03:51 MPV 9.9 fL (7.4-11.0) 10/01/21 05:10 Neut % (Auto) 87.5 % (42.0-75.0) H 10/01/21 05:10 Lymph % (Auto) 3.1 % (21.0-51.0) L 10/01/21 05:10 [place] % (Auto) 7.0 % (0.0-13.0) 10/01/21 05:10 Eos % (Auto) 1.8 % (0.9-2.9) 10/01/21 05:10 Baso % (Auto) 0.6 % (0.2-1.0) 10/01/21 05:10 Neut # (Auto) 11.7 x10^3/uL (2.2-4.8) H 10/01/21 05:10 Lymph # (Auto) 0.4 X10^3/uL (1.3-2.9) L 10/01/21 05:10 [place] # (Auto) 0.9 x10^3/uL (0.3-0.8) H 10/01/21 05:10 Eos # (Auto) 0.2 x10^3/uL (0.0-0.2) 10/01/21 05:10 Baso # (Auto) 0.1 X10^3/uL (0.0-0.1) 10/01/21 05:10 Absolute Nucleated RBC 0.0 /100WBC 10/01/21 05:10 Total Counted 100 09/28/21 03:51 Neutrophils % (Manual) 90 % (39-76) H 09/28/21 03:51 Band Neutrophils % 2 % (0-10) 09/28/21 03:51 Lymphocytes % (Manual) 3 % (13-43) L 09/28/21 03:51 Monocytes % (Manual) 5 % (4-9) 09/28/21 03:51 Plt Morphology Comment Normal (NORMAL) 09/28/21 03:51 RBC Morphology Normal (NORMAL) 09/28/21 03:51 Sodium 139 mmol/L (136-145) 10/01/21 05:10 Corrected Sodium 140 mmol/L (136-145) 10/01/21 05:10 Potassium 3.6 mmol/L (3.5-5.1) 10/01/21 05:10 Chloride 105 mmol/L (98-107) 10/01/21 05:10 Carbon Dioxide 22.3 mmol/L (21-32) 10/01/21 05:10 BUN 81 mg/dL (7-18) H 10/01/21 05:10 Creatinine 3.19 mg/dL (0.70-1.30) H 10/01/21 05:10 Est GFR (MDRD) Af Amer 24 (>60) L 10/01/21 05:10 Est GFR (MDRD) Non-Af 20 (>60) L 10/01/21 05:10 Glucose 140 mg/dL (65-99) H 10/01/21 05:10 POC Glucose (mg/dL) 153 mg/dL (65-99) H 10/01/21 10:57 Lactic Acid 0.9 mmol/L (0.4-2.0) 09/27/21 18:45 Calcium 8.2 mg/dL (8.5-10.1) L 10/01/21 05:10 Corrected Calcium 10.3 mg/dL (8.5-10.1) H 09/29/21 05:02 Total Bilirubin 0.30 mg/dL (0.2-1.0) 09/29/21 05:02 AST 29 Units/L (15-37) 09/29/21 05:02 ALT 20 Units/L (12-78) 09/29/21 05:02 Alkaline Phosphatase 65 Units/L (46-116) 09/29/21 05:02 Creatine Kinase 156 Units/L (39-308) 09/27/21 18:45 CK-MB (CK-2) < 1.0 ng/mL (0-4.0) 09/27/21 18:45 CK/CKMB % Calc 0.6 % (<4) 09/27/21 18:45 Troponin I High Sens 52.1 ng/L (4.0-60.0) 09/27/21 18:45 Total Protein 5.4 g/dL (6.4-8.2) L 09/29/21 05:02 Albumin 1.9 g/dL (3.4-5.0) L 09/29/21 05:02 Globulin 3.5 g/dL (2.5-4.5) 09/29/21 05:02 Albumin/Globulin Ratio 0.5 Ratio (1.1-2.1) L 09/29/21 05:02 Lipase 84 Units/L (73-393) 09/27/21 18:45 Specimen Type Catherized urine 09/27/21 21:37 Urine Color [place] (YELLOW) 09/27/21 21:37 Urine Appearance Hazy (CLEAR) 09/27/21 21:37 Urine pH 6.0 (5.0 - 8.0) 09/27/21 21:37 Ur Specific [place] 1.010 (1.000-1.030) 09/27/21 21:37 Urine Protein 3+ (NEGATIVE) 09/27/21 21:37 Urine Glucose (UA) Negative (NEGATIVE) 09/27/21 21:37 Urine Ketones Negative (NEGATIVE) 09/27/21 21:37 Urine Occult Blood 5+ (NEGATIVE) 09/27/21 21:37 Urine Nitrite Negative (NEGATIVE) 09/27/21 21:37 Urine Bilirubin Negative (NEGATIVE) 09/27/21 21:37 Urine Urobilinogen Normal (NORMAL) 09/27/21 21:37 Ur Leukocyte Esterase 3+ (NEGATIVE) 09/27/21 21:37 Urine RBC Tntc /HPF (0-3) A 09/27/21 21:37 Urine WBC 10-20 /HPF (0-5) A 09/27/21 21:37 Ur Squamous Epith Cells Rare /HPF (NEGATIVE) 09/27/21 21:37 Urine Bacteria 2+ /HPF (NEGATIVE) 09/27/21 21:37 Urine Mucus Few /HPF (NEGATIVE) 09/27/21 21:37 Ur Culture Indicated? Yes/culture set up 09/27/21 21:37 SARS-CoV-2 (PCR) Negative (NEGATIVE) 09/27/21 20:42 Influenza Type A (PCR) Negative (NEGATIVE) 09/27/21 20:42 Influenza Type B (PCR) Negative (NEGATIVE) 09/27/21 20:42 RSV (PCR) Negative (NEGATIVE) 09/27/21 20:42 Blood Type O POSITIVE 09/30/21 12:58 Antibody Screen Negative 09/30/21 12:58 Crossmatch See Detail 09/30/21 12:58 - Plan (1) Urinary tract infection Status: Acute Qualifiers: Urinary tract infection type: acute cystitis Hematuria presence: with hematuria Qualified Code(s): N30.01 - Acute cystitis with hematuria Plan: IV abx. See cultures (2) Acute on chronic renal failure Status: Acute Qualifiers: Acute renal failure type: unspecified Chronic kidney disease stage: unspecified stage Qualified Code(s): N17.9 - Acute kidney failure, unspecified; N18.9 - Chronic kidney disease, unspecified Plan: IV fluids. Monitor. 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 transplanted heart: unspecified whether [place] or transplanted heart Associated angina: unspecified whether angina present Qualified Code(s): I25.10 - Atherosclerotic heart disease of [place] coronary artery without angina pectoris Plan: home meds
[2021-10-01] MEDS: SNACK - Diabetic Appropriate PO SCH (20:34)
[2021-10-01] MEDS: LIPITOR TAB 80 MG PO SCH (21:35)
[2021-10-01] MEDS: PROSCAR PO SCH (21:35)
[2021-10-01] MEDS: ROCEPHIN VIAL 1 GRAM 1 G in NS 100 ML IV + SPIKE MINIBAG* 100 ML IV SCH (22:10)
[2021-10-02 06:12] LABS: BASOPHILS # (AUTO) 0.1 X10^3/uL (0.0-0.1); BASOPHILS % (AUTO) 0.6 % (0.2-1.0); EOSINOPHILS # (AUTO) 0.2 x10^3/uL (0.0-0.2); HEMATOCRIT 27.1 % (42.0-54.0); HEMOGLOBIN 9.3 g/dL (13.5-18.0); LYMPHOCYTES # (AUTO) 0.5 X10^3/uL (1.3-2.9); MEAN CORPUSCULAR HEMOGLOBIN 30.7 pg (27.0-34.0); MEAN CORPUSCULAR HGB CONC 34.2 g/dL (33.0-35.0); MEAN CORPUSCULAR VOLUME 89.8 fL (80.0-100.0); MEAN PLATELET VOLUME 10.4 fL (7.4-11.0); MONOCYTES # (AUTO) 0.7 x10^3/uL (0.3-0.8); MONOCYTES % (AUTO) 5.9 % (0.0-13.0); NEUTROPHILS % (AUTO) 87.5 % (42.0-75.0); RED BLOOD COUNT 3.02 X10^6/uL (4.7-6.0); RED CELL DISTRIBUTION WIDTH 16.4 % (11.6-16.5); WHITE BLOOD COUNT 11.5 X10^3/uL (3.6-10.0)
[2021-10-02 06:19] LABS: ALBUMIN 1.8 g/dL (3.4-5.0); CALCIUM 8.4 mg/dL (8.5-10.1); CARBON DIOXIDE 24.2 mmol/L (21-32); COR CA(FOR HYPOALB) 10.2 mg/dL (8.5-10.1); CREATININE 2.75 mg/dL (0.70-1.30); TOTAL PROTEIN 5.2 g/dL (6.4-8.2)
[2021-10-02] MEDS: NS 1,000 ML IV 1,000 ML IV SCH ×3 (07:15→20:46)
[2021-10-02] MEDS ORDERED: LEXAPRO ONE (07:47)
[2021-10-02] MEDS: ISOSORBIDE MONONITRATE ER 24-HR PO SCH (08:43)
[2021-10-02] MEDS: HEMOCYTE-PLUS PO SCH (08:43)
[2021-10-02] MEDS: BUMEX TAB 1 MG PO SCH (08:43)
[2021-10-02] MEDS: LEXAPRO PO SCH (08:43)
[2021-10-02] MEDS: ZAROXOLYN PO SCH (08:44)
[2021-10-02] MEDS: FLOMAX PO SCH (08:44)
[2021-10-02] MEDS: ASPIRIN EC 81 MG PO SCH (08:44)
[2021-10-02] MEDS: COREG TAB 25 MG PO SCH ×2 (08:44→20:46)
[2021-10-02] MEDS: VANCOMYCIN IV *PREMIX 1 G/200 ML BAG 1 G/200 ML PIGGYBACK IV SCH (09:59)
[2021-10-02] MEDS: TYLENOL 325 MG TAB PO PRN ×3 (11:17→20:52)
[2021-10-02] MEDS: NovoLIN R (or HumuLIN R) SUBCUT PRN (16:26)
--- NOTE | 2021-10-02 19:04 | PCM.PROG ---
Progress Note - Subjective Subjective: Patient seen at bedside, no events overnight. He is currently being treated for UTI and acute on chronic renal failure. His Blood Cx from admission growing Enterococcus facaelis on vanc and rocephin. Patient has been afebrile. WBC stable. No major changes from previous. Labs/imaging reviewed. Plan: Will consult pharmacy for Vancomycin, continue Rocephin. Order echo to eval for any vegetation due to Gram + Cocci bacteremia. Continue gentle hydration. Follow cultures. Patient's hgb 7.5, will transfuse 2 units PRBCs. Renal function improving. Monitor AM labs and imaging. - Past Medical Family Social History Past Med/Fam/Surg Hx: No changes since H&P Allergies: Allergies Iodinated Contrast Media Allergy (Verified 09/27/21 17:27) ketorolac [From Toradol] Allergy (Verified 09/27/21 17:27) lisinopril Allergy (Verified 09/27/21 17:27) - Review of Systems ROS: No change since H&P - Vital Signs and I&O's Vital Signs: Temperature 97.9 F Pulse Rate [Apical] 71 Pulse Rate 70 Respiratory Rate 20 Blood Pressure [Right Arm] 133/65 Blood Pressure [Left Arm] 113/62 Blood Pressure 132/72 O2 Sat by Pulse Oximetry 99 Intake and Output: Intake & Output 09/29/21 09/30/21 10/01/21 10/02/21 23:59 23:59 23:59 23:59 Intake Total 2390 / 2390 4859 / 4859 2451 / 2451 2034 / 2034 Output Total 1150 / 1150 1825 / 1825 2200 / 2200 2375 / 2375 Balance 1240 / 1240 3034 / 3034 251 / 251 -340 / -340 - Physical Exam Oriented: Not Oriented Eyes: Normal Ear: Normal Nose: Normal Throat: Normal Respiratory: Generalized, Diminished Cardiovascular: Normal : Other (Chronic indwelling wade cath due to BPH) Auscultation: Bowel Sounds: Normal Palpation: Normal Tenderness: Normal Skin: Decreased Turgur Musculoskeletal: Shoulder, Right, Left, Back:Thoracic, Back:Lumbar, Back:Midline, Tender, Instability Mood Description: Calm, Flat Affect: Flat Speech Pattern: Unclear, Delayed - Laboratory and Diagnostics Result Diagrams: 10/02/21 05:29 10/02/21 05:29 Labs: 09/27/21 21:37 Urine,Catheterized Urine Culture - Final Enterococcus Faecalis Staphylococcus Epidermidis 09/29/21 10:14 Blood Blood Culture - Final Enterococcus Faecalis 09/29/21 09:51 Blood Blood Culture - Final Enterococcus Faecalis 09/27/21 18:50 Blood Blood Culture - Final Enterococcus Faecalis 09/27/21 18:45 Blood Blood Culture - Final Enterococcus Faecalis Laboratory WBC 11.5 X10^3/uL (3.6-10.0) H 10/02/21 05:29 RBC 3.02 X10^6/uL (4.7-6.0) L 10/02/21 05:29 Hgb 9.3 g/dL (13.5-18.0) L 10/02/21 05:29 Hct 27.1 % (42.0-54.0) L 10/02/21 05:29 MCV 89.8 fL (80.0-100.0) 10/02/21 05:29 MCH 30.7 pg (27.0-34.0) 10/02/21 05:29 MCHC 34.2 g/dL (33.0-35.0) 10/02/21 05:29 RDW 16.4 % (11.6-16.5) 10/02/21 05:29 Plt Count 79 X10^3/uL (150.0-450.0) L 10/02/21 05:29 Plt Count Comment Decreased (ADEQUATE) 09/28/21 03:51 MPV 10.4 fL (7.4-11.0) 10/02/21 05:29 Neut % (Auto) 87.5 % (42.0-75.0) H 10/02/21 05:29 Lymph % (Auto) 4.0 % (21.0-51.0) L 10/02/21 05:29 [place] % (Auto) 5.9 % (0.0-13.0) 10/02/21 05:29 Eos % (Auto) 2.0 % (0.9-2.9) 10/02/21 05:29 Baso % (Auto) 0.6 % (0.2-1.0) 10/02/21 05:29 Neut # (Auto) 10.0 x10^3/uL (2.2-4.8) H 10/02/21 05:29 Lymph # (Auto) 0.5 X10^3/uL (1.3-2.9) L 10/02/21 05:29 [place] # (Auto) 0.7 x10^3/uL (0.3-0.8) 10/02/21 05:29 Eos # (Auto) 0.2 x10^3/uL (0.0-0.2) 10/02/21 05:29 Baso # (Auto) 0.1 X10^3/uL (0.0-0.1) 10/02/21 05:29 Absolute Nucleated RBC 0.1 /100WBC 10/02/21 05:29 Total Counted 100 09/28/21 03:51 Neutrophils % (Manual) 90 % (39-76) H 09/28/21 03:51 Band Neutrophils % 2 % (0-10) 09/28/21 03:51 Lymphocytes % (Manual) 3 % (13-43) L 09/28/21 03:51 Monocytes % (Manual) 5 % (4-9) 09/28/21 03:51 Plt Morphology Comment Normal (NORMAL) 09/28/21 03:51 RBC Morphology Normal (NORMAL) 09/28/21 03:51 Sodium 144 mmol/L (136-145) 10/02/21 05:29 Corrected Sodium 144 mmol/L (136-145) 10/02/21 05:29 Potassium 3.6 mmol/L (3.5-5.1) 10/02/21 05:29 Chloride 109 mmol/L (98-107) H 10/02/21 05:29 Carbon Dioxide 24.2 mmol/L (21-32) 10/02/21 05:29 BUN 76 mg/dL (7-18) H 10/02/21 05:29 Creatinine 2.75 mg/dL (0.70-1.30) H 10/02/21 05:29 Est GFR (MDRD) Af Amer 28 (>60) L 10/02/21 05:29 Est GFR (MDRD) Non-Af 23 (>60) L 10/02/21 05:29 Glucose 120 mg/dL (65-99) H 10/02/21 05:29 POC Glucose (mg/dL) 156 mg/dL (65-99) H 10/02/21 16:19 Lactic Acid 0.9 mmol/L (0.4-2.0) 09/27/21 18:45 Calcium 8.4 mg/dL (8.5-10.1) L 10/02/21 05:29 Corrected Calcium 10.2 mg/dL (8.5-10.1) H 10/02/21 05:29 Total Bilirubin 0.30 mg/dL (0.2-1.0) 10/02/21 05:29 AST 36 Units/L (15-37) 10/02/21 05:29 ALT 28 Units/L (12-78) 10/02/21 05:29 Alkaline Phosphatase 62 Units/L (46-116) 10/02/21 05:29 Creatine Kinase 156 Units/L (39-308) 09/27/21 18:45 CK-MB (CK-2) < 1.0 ng/mL (0-4.0) 09/27/21 18:45 CK/CKMB % Calc 0.6 % (<4) 09/27/21 18:45 Troponin I High Sens 52.1 ng/L (4.0-60.0) 09/27/21 18:45 Total Protein 5.2 g/dL (6.4-8.2) L 10/02/21 05:29 Albumin 1.8 g/dL (3.4-5.0) L 10/02/21 05:29 Globulin 3.4 g/dL (2.5-4.5) 10/02/21 05:29 Albumin/Globulin Ratio 0.5 Ratio (1.1-2.1) L 10/02/21 05:29 Lipase 84 Units/L (73-393) 09/27/21 18:45 Specimen Type Catherized urine 09/27/21 21:37 Urine Color [place] (YELLOW) 09/27/21 21:37 Urine Appearance Hazy (CLEAR) 09/27/21 21:37 Urine pH 6.0 (5.0 - 8.0) 09/27/21 21:37 Ur Specific [place] 1.010 (1.000-1.030) 09/27/21 21:37 Urine Protein 3+ (NEGATIVE) 09/27/21 21:37 Urine Glucose (UA) Negative (NEGATIVE) 09/27/21 21:37 Urine Ketones Negative (NEGATIVE) 09/27/21 21:37 Urine Occult Blood 5+ (NEGATIVE) 09/27/21 21:37 Urine Nitrite Negative (NEGATIVE) 09/27/21 21:37 Urine Bilirubin Negative (NEGATIVE) 09/27/21 21:37 Urine Urobilinogen Normal (NORMAL) 09/27/21 21:37 Ur Leukocyte Esterase 3+ (NEGATIVE) 09/27/21 21:37 Urine RBC Tntc /HPF (0-3) A 09/27/21 21:37 Urine WBC 10-20 /HPF (0-5) A 09/27/21 21:37 Ur Squamous Epith Cells Rare /HPF (NEGATIVE) 09/27/21 21:37 Urine Bacteria 2+ /HPF (NEGATIVE) 09/27/21 21:37 Urine Mucus Few /HPF (NEGATIVE) 09/27/21 21:37 Ur Culture Indicated? Yes/culture set up 09/27/21 21:37 SARS-CoV-2 (PCR) Negative (NEGATIVE) 09/27/21 20:42 Influenza Type A (PCR) Negative (NEGATIVE) 09/27/21 20:42 Influenza Type B (PCR) Negative (NEGATIVE) 09/27/21 20:42 RSV (PCR) Negative (NEGATIVE) 09/27/21 20:42 Blood Type O POSITIVE 09/30/21 12:58 Antibody Screen Negative 09/30/21 12:58 Crossmatch See Detail 09/30/21 12:58 - Plan (1) Urinary tract infection Status: Acute Qualifiers: Urinary tract infection type: acute cystitis Hematuria presence: with hematuria Qualified Code(s): N30.01 - Acute cystitis with hematuria Plan: IV abx. See cultures (2) Acute on chronic renal failure Status: Acute Qualifiers: Acute renal failure type: unspecified Chronic kidney disease stage: u nspecified stage Qualified Code(s): N17.9 - Acute kidney failure, unspecified; N18.9 - Chronic kidney disease, unspecified Plan: IV fluids. Monitor. 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 transplanted heart: unspecified whether [place] or transplanted heart Associated angina: unspecified whether angina present Qualified Code(s): I25.10 - Atherosclerotic heart disease of [place] coronary artery withou t angina pectoris Plan: home meds
[2021-10-02] MEDS: PROSCAR PO SCH (20:46)
[2021-10-02] MEDS: LIPITOR TAB 80 MG PO SCH (20:46)
[2021-10-02] MEDS: SNACK - Diabetic Appropriate PO SCH (20:46)
[2021-10-02] MEDS: ROCEPHIN VIAL 1 GRAM 1 G in NS 100 ML IV + SPIKE MINIBAG* 100 ML IV SCH (23:00)
[2021-10-03 06:23] LABS: BASOPHILS # (AUTO) 0.1 X10^3/uL (0.0-0.1); BASOPHILS % (AUTO) 0.8 % (0.2-1.0); EOSINOPHILS # (AUTO) 0.3 x10^3/uL (0.0-0.2); EOSINOPHILS % (AUTO) 3.5 % (0.9-2.9); HEMATOCRIT 25.9 % (42.0-54.0); HEMOGLOBIN 8.8 g/dL (13.5-18.0); LYMPHOCYTES # (AUTO) 0.6 X10^3/uL (1.3-2.9); LYMPHOCYTES % (AUTO) 6.2 % (21.0-51.0); MEAN CORPUSCULAR HEMOGLOBIN 30.7 pg (27.0-34.0); MEAN CORPUSCULAR VOLUME 90.4 fL (80.0-100.0); MEAN PLATELET VOLUME 10.1 fL (7.4-11.0); MONOCYTES # (AUTO) 0.7 x10^3/uL (0.3-0.8); MONOCYTES % (AUTO) 7.8 % (0.0-13.0); NEUTROPHILS # (AUTO) 7.3 x10^3/uL (2.2-4.8); NEUTROPHILS % (AUTO) 81.7 % (42.0-75.0); RED BLOOD COUNT 2.87 X10^6/uL (4.7-6.0); RED CELL DISTRIBUTION WIDTH 16.7 % (11.6-16.5)
[2021-10-03 06:33] LABS: ALANINE AMINOTRANSFERASE 28 Units/L (12-78); ALBUMIN 1.8 g/dL (3.4-5.0); ALKALINE PHOSPHATASE 59 Units/L (46-116); ASPARTATE AMINO TRANSFERASE 37 Units/L (15-37); BLOOD UREA NITROGEN 69 mg/dL (7-18); CALCIUM 7.9 mg/dL (8.5-10.1); CARBON DIOXIDE 23.8 mmol/L (21-32); CHLORIDE 109 mmol/L (98-107); COR CA(FOR HYPOALB) 9.7 mg/dL (8.5-10.1); CREATININE 2.39 mg/dL (0.70-1.30); SODIUM 143 mmol/L (136-145); TOTAL PROTEIN 5.1 g/dL (6.4-8.2); eGFR NON BLACK RACES 28 (>60)
[2021-10-03] MEDS ORDERED: LEXAPRO ONE (08:55)
[2021-10-03] MEDS: HEMOCYTE-PLUS PO SCH (08:58)
[2021-10-03] MEDS: LEXAPRO PO SCH (08:58)
[2021-10-03] MEDS: ASPIRIN EC 81 MG PO SCH (08:58)
[2021-10-03] MEDS: COREG TAB 25 MG PO SCH ×2 (08:59→20:57)
[2021-10-03] MEDS: ISOSORBIDE MONONITRATE ER 24-HR PO SCH (08:59)
[2021-10-03] MEDS: FLOMAX PO SCH (08:59)
[2021-10-03] MEDS: NS 1,000 ML IV 1,000 ML IV SCH ×2 (08:59→16:54)
[2021-10-03] MEDS ORDERED: PHARMACY COMMENT IV NR (09:00)
[2021-10-03] MEDS ORDERED: KLOR-CON PO PRN (10:50)
[2021-10-03] MEDS ORDERED: POTASSIUM CHLORIDE LIQ 20 MEQ UDC PO PRN (10:50)
[2021-10-03] MEDS ORDERED: POTASSIUM CHL 40 MEQ/NS 0.45% 500 ML IV PRN (10:50)
[2021-10-03] MEDS ORDERED: MICRO K EXTEN CAP 10 MEQ PO PRN (10:50)
[2021-10-03] MEDS ORDERED: POTASSIUM CHL 60 MEQ/NS 0.45% 500 ML IV PRN (10:50)
[2021-10-03] MEDS ORDERED: K-RIDER 10 MEQ/NS 100 ML 10 MEQ/100 ML BAG IV PRN (10:50)
[2021-10-03 10:57] LABS: CREATININE 2.44 mg/dL (0.70-1.30)
[2021-10-03] MEDS: K-DUR TAB 20 MEQ PO PRN (11:17)
[2021-10-03] MEDS: MAGNESIUM SULFATE 1 GRAM/100 mL PREMIX 1 G/100 ML BAG IV PRN ×4 (11:42→16:14)
[2021-10-03] MEDS: VANCOMYCIN IV *PREMIX 1 G/200 ML BAG 1 G/200 ML PIGGYBACK IV SCH (12:34)
--- NOTE | 2021-10-03 13:15 | PCM.PROG ---
Progress Note - Subjective Subjective: Patient seen at bedside, no events overnight. He is currently being treated for UTI and acute on chronic renal failure. His Blood Cx from admission and repeat growing Enterococcus facaelis as well as urine; on vanc and rocephin. Patient has been afebrile. WBC stable. No major changes from previous. Needs IV abx for now. Labs/imaging reviewed. Plan: Will consult pharmacy for Van comycin, continue Rocephin. Order echo to eval for any vegetation due to Gram + Cocci bacteremia. Continue gentle hydration. Follow cultures. Patient's hgb 7.5, will transfuse 2 units PRBCs. Renal function improving. Monitor AM labs and imaging. - Past Medical Family Social History Past Med/Fam/Surg Hx: No changes since H&P Allergies: Allergies Iodinated Contrast Media Allergy (Verified 09/27/21 17:27) ketorolac [From Toradol] Allergy (Verified 09/27/21 17:27) lisinopril Allergy (Verified 09/27/21 17:27) - Review of Systems ROS: No change since H&P - Vital Signs and I&O's Vital Signs: Temperature 98.7 F Pulse Rate [Apical] 80 Pulse Rate 70 Respiratory Rate 20 Blood Pressure [Right Arm] 133/65 Blood Pressure [Left Arm] 134/74 Blood Pressure 132/72 O2 Sat by Pulse Oximetry 98 Intake and Output: Intake & Output 09/30/21 10/01/21 10/02/21 10/03/21 23:59 23:59 23:59 23:59 Intake Total 4859 / 4859 2451 / 2451 3282 / 3282 580 / 580 Output Total 1825 / 1825 2200 / 2200 3975 / 3975 550 / 550 Balance 3034 / 3034 251 / 251 -693 / -693 - Physical Exam Oriented: Not Oriented Eyes: Normal Ear: Normal Nose: Normal Throat: Normal Respiratory: Generalized, Diminished Cardiovascular: Normal : Other (Chronic indwelling wade cath due to BPH) Auscultation: Bowel Sounds: Normal Palpation: Normal Tenderness: Normal Skin: Decreased Turgur Musculoskeletal: Shoulder, Right, Left, Back:Thoracic, Back:Lumbar, Back:Midline, Tender, Instability Mood Description: Calm, Flat Affect: Flat Speech Pattern: Unclear, Delayed - Laboratory and Diagnostics Result Diagrams: 10/03/21 05:25 10/03/21 10:11 Labs: 09/27/21 21:37 Urine,Catheterized Urine Culture - Final Enterococcus Faecalis Staphylococcus Epidermidis 09/29/21 10:14 Blood Blood Culture - Final Enterococcus Faecalis 09/29/21 09:51 Blood Blood Culture - Final Enterococcus Faecalis 09/27/21 18:50 Blood Blood Culture - Final Enterococcus Faecalis 09/27/21 18:45 Blood Blood Culture - Final Enterococcus Faecalis Laboratory WBC 9.0 X10^3/uL (3.6-10.0) 10/03/21 05:25 RBC 2.87 X10^6/uL (4.7-6.0) L 10/03/21 05:25 Hgb 8.8 g/dL (13.5-18.0) L 10/03/21 05:25 Hct 25.9 % (42.0-54.0) L 10/03/21 05:25 MCV 90.4 fL (80.0-100.0) 10/03/21 05:25 MCH 30.7 pg (27.0-34.0) 10/03/21 05:25 MCHC 34.0 g/dL (33.0-35.0) 10/03/21 05:25 RDW 16.7 % (11.6-16.5) H 10/03/21 05:25 Plt Count 69 X10^3/uL (150.0-450.0) L 10/03/21 05:25 Plt Count Comment Decreased (ADEQUATE) 09/28/21 03:51 MPV 10.1 fL (7.4-11.0) 10/03/21 05:25 Neut % (Auto) 81.7 % (42.0-75.0) H 10/03/21 05:25 Lymph % (Auto) 6.2 % (21.0-51.0) L 10/03/21 05:25 [place] % (Auto) 7.8 % (0.0-13.0) 10/03/21 05:25 Eos % (Auto) 3.5 % (0.9-2.9) H 10/03/21 05:25 Baso % (Auto) 0.8 % (0.2-1.0) 10/03/21 05:25 Neut # (Auto) 7.3 x10^3/uL (2.2-4.8) H 10/03/21 05:25 Lymph # (Auto) 0.6 X10^3/uL (1.3-2.9) L 10/03/21 05:25 [place] # (Auto) 0.7 x10^3/uL (0.3-0.8) 10/03/21 05:25 Eos # (Auto) 0.3 x10^3/uL (0.0-0.2) H 10/03/21 05:25 Baso # (Auto) 0.1 X10^3/uL (0.0-0.1) 10/03/21 05:25 Absolute Nucleated RBC 0.0 /100WBC 10/03/21 05:25 Total Counted 100 09/28/21 03:51 Neutrophils % (Manual) 90 % (39-76) H 09/28/21 03:51 Band Neutrophils % 2 % (0-10) 09/28/21 03:51 Lymphocytes % (Manual) 3 % (13-43) L 09/28/21 03:51 Monocytes % (Manual) 5 % (4-9) 09/28/21 03:51 Plt Morphology Comment Normal (NORMAL) 09/28/21 03:51 RBC Morphology Normal (NORMAL) 09/28/21 03:51 Sodium 143 mmol/L (136-145) 10/03/21 05:25 Corrected Sodium TNP 10/03/21 05:25 Potassium 3.4 mmol/L (3.5-5.1) L 10/03/21 05:25 Chloride 109 mmol/L (98-107) H 10/03/21 05:25 Carbon Dioxide 23.8 mmol/L (21-32) 10/03/21 05:25 BUN 69 mg/dL (7-18) H 10/03/21 05:25 Creatinine 2.44 mg/dL (0.70-1.30) H 10/03/21 10:11 Est GFR (MDRD) Af Amer 33 (>60) L 10/03/21 05:25 Est GFR (MDRD) Non-Af 28 (>60) L 10/03/21 05:25 Glucose 96 mg/dL (65-99) 10/03/21 05:25 POC Glucose (mg/dL) 126 mg/dL (65-99) H 10/03/21 10:49 Lactic Acid 0.9 mmol/L (0.4-2.0) 09/27/21 18:45 Calcium 7.9 mg/dL (8.5-10.1) L 10/03/21 05:25 Corrected Calcium 9.7 mg/dL (8.5-10.1) 10/03/21 05:25 Magnesium 1.4 mg/dL (1.7-2.9) L 10/03/21 05:25 Total Bilirubin 0.30 mg/dL (0.2-1.0) 10/03/21 05:25 AST 37 Units/L (15-37) 10/03/21 05:25 ALT 28 Units/L (12-78) 10/03/21 05:25 Alkaline Phosphatase 59 Units/L (46-116) 10/03/21 05:25 Creatine Kinase 156 Units/L (39-308) 09/27/21 18:45 CK-MB (CK-2) < 1.0 ng/mL (0-4.0) 09/27/21 18:45 CK/CKMB % Calc 0.6 % (<4) 09/27/21 18:45 Troponin I High Sens 52.1 ng/L (4.0-60.0) 09/27/21 18:45 Total Protein 5.1 g/dL (6.4-8.2) L 10/03/21 05:25 Albumin 1.8 g/dL (3.4-5.0) L 10/03/21 05:25 Globulin 3.3 g/dL (2.5-4.5) 10/03/21 05:25 Albumin/Globulin Ratio 0.5 Ratio (1.1-2.1) L 10/03/21 05:25 Lipase 84 Units/L (73-393) 09/27/21 18:45 Specimen Type Catherized urine 09/27/21 21:37 Urine Color [place] (YELLOW) 09/27/21 21:37 Urine Appearance Hazy (CLEAR) 09/27/21 21:37 Urine pH 6.0 (5.0 - 8.0) 09/27/21 21:37 Ur Specific [place] 1.010 (1.000-1.030) 09/27/21 21:37 Urine Protein 3+ (NEGATIVE) 09/27/21 21:37 Urine Glucose (UA) Negative (NEGATIVE) 09/27/21 21:37 Urine Ketones Negative (NEGATIVE) 09/27/21 21:37 Urine Occult Blood 5+ (NEGATIVE) 09/27/21 21:37 Urine Nitrite Negative (NEGATIVE) 09/27/21 21:37 Urine Bilirubin Negative (NEGATIVE) 09/27/21 21:37 Urine Urobilinogen Normal (NORMAL) 09/27/21 21:37 Ur Leukocyte Esterase 3+ (NEGATIVE) 09/27/21 21:37 Urine RBC Tntc /HPF (0-3) A 09/27/21 21:37 Urine WBC 10-20 /HPF (0-5) A 09/27/21 21:37 Ur Squamous Epith Cells Rare /HPF (NEGATIVE) 09/27/21 21:37 Urine Bacteria 2+ /HPF (NEGATIVE) 09/27/21 21:37 Urine Mucus Few /HPF (NEGATIVE) 09/27/21 21:37 Ur Culture Indicated? Yes/culture set up 09/27/21 21:37 Vancomycin Trough 22.0 ug/mL (15-20) H* 10/03/21 10:11 SARS-CoV-2 (PCR) Negative (NEGATIVE) 09/27/21 20:42 Influenza Type A (PCR) Negative (NEGATIVE) 09/27/21 20:42 Influenza Type B (PCR) Negative (NEGATIVE) 09/27/21 20:42 RSV (PCR) Negative (NEGATIVE) 09/27/21 20:42 Blood Type O POSITIVE 09/30/21 12:58 Antibody Screen Negative 09/30/21 12:58 Crossmatch See Detail 09/30/21 12:58 - Plan (1) Gram-positive bacteremia Status: Acute (2) Urinary tract infection Status: Acute Qualifiers: Urinary tract infection type: acute cystitis Hematuria presence: with hematuria Qualified Code(s): N30.01 - Acute cystitis with hematuria Plan: IV abx. See cultures (3) Acute on chronic renal failure Status: Acute Qualifiers: Acute renal failure type: unspecified Chronic kidney disease stage: unspecified stage Qualified Code(s): N17.9 - Acute kidney failure, unspecified; N18.9 - Chronic kidney disease, unspecified Plan: IV fluids. Monitor. Improved (4) Weakness generalized Status: Chronic (5) Failure to thrive syndrome, adult Status: Chronic Plan: Hospice at home (6) Hyperkalemia Status: Resolved Plan: Resolved with kayexalate (7) BPH (benign prostatic hyperplasia) Status: Chronic Qualifiers: Lower urinary tract symptom presence: unspecified whether lower urinary tract symptoms present Qualified Code(s): N40.0 - Benign prostatic hyperplasia without lower urinary tract symptoms Plan: Chronic [place] (8) Coronary artery disease Status: Chronic Qualifiers: Coronary Disease-Associated Artery/Lesion type: unspecified vessel or lesion type [place] vs. transplanted heart: unspecified whether [place] or transplanted heart Associated angina: unspecified whether angina present Qualified Code(s): I25.10 - Atherosclerotic heart disease of [place] coronary artery without angina pectoris Plan: home meds
[2021-10-03] MEDS: NovoLIN R (or HumuLIN R) SUBCUT PRN (16:23)
[2021-10-03] MEDS: MELATONIN PO SCH (20:57)
[2021-10-03] MEDS: LIPITOR TAB 80 MG PO SCH (20:57)
[2021-10-03] MEDS: SNACK - Diabetic Appropriate PO SCH (20:58)
[2021-10-03] MEDS: PROSCAR PO SCH (20:58)
[2021-10-03] MEDS: ROCEPHIN VIAL 1 GRAM 1 G in NS 100 ML IV + SPIKE MINIBAG* 100 ML IV SCH (22:10)
[2021-10-04 06:13] LABS: ALANINE AMINOTRANSFERASE 28 Units/L (12-78); ALBUMIN 1.7 g/dL (3.4-5.0); ALKALINE PHOSPHATASE 57 Units/L (46-116); ASPARTATE AMINO TRANSFERASE 30 Units/L (15-37); BLOOD UREA NITROGEN 61 mg/dL (7-18); CALCIUM 8.3 mg/dL (8.5-10.1); CARBON DIOXIDE 23.6 mmol/L (21-32); CHLORIDE 111 mmol/L (98-107); COR CA(FOR HYPOALB) 10.1 mg/dL (8.5-10.1); CREATININE 2.18 mg/dL (0.70-1.30); MAGNESIUM 1.9 mg/dL (1.7-2.9); SODIUM 145 mmol/L (136-145); eGFR NON BLACK RACES 31 (>60)
[2021-10-04 06:17] LABS: BASOPHILS % (AUTO) 0.5 % (0.2-1.0); EOSINOPHILS # (AUTO) 0.3 x10^3/uL (0.0-0.2); EOSINOPHILS % (AUTO) 3.7 % (0.9-2.9); HEMATOCRIT 25.1 % (42.0-54.0); HEMOGLOBIN 8.6 g/dL (13.5-18.0); LYMPHOCYTES # (AUTO) 0.4 X10^3/uL (1.3-2.9); LYMPHOCYTES % (AUTO) 5.6 % (21.0-51.0); MEAN CORPUSCULAR HEMOGLOBIN 30.9 pg (27.0-34.0); MEAN CORPUSCULAR HGB CONC 34.4 g/dL (33.0-35.0); MEAN PLATELET VOLUME 9.5 fL (7.4-11.0); MONOCYTES # (AUTO) 0.5 x10^3/uL (0.3-0.8); MONOCYTES % (AUTO) 6.7 % (0.0-13.0); NEUTROPHILS # (AUTO) 6.2 x10^3/uL (2.2-4.8); NEUTROPHILS % (AUTO) 83.5 % (42.0-75.0); RED BLOOD COUNT 2.79 X10^6/uL (4.7-6.0); RED CELL DISTRIBUTION WIDTH 16.6 % (11.6-16.5); WHITE BLOOD COUNT 7.4 X10^3/uL (3.6-10.0)
[2021-10-04] MEDS: NS 1,000 ML IV 1,000 ML IV SCH ×2 (07:10→12:00)
[2021-10-04] MEDS ORDERED: LEXAPRO ONE (08:38)
[2021-10-04] MEDS: ASPIRIN EC 81 MG PO SCH (09:01)
[2021-10-04] MEDS: HEMOCYTE-PLUS PO SCH (09:02)
[2021-10-04] MEDS: FLOMAX PO SCH (09:02)
[2021-10-04] MEDS: COREG TAB 25 MG PO SCH ×2 (09:02→20:49)
[2021-10-04] MEDS: ISOSORBIDE MONONITRATE ER 24-HR PO SCH (09:03)
[2021-10-04] MEDS: LEXAPRO PO SCH (09:03)
[2021-10-04] MEDS: VANCOMYCIN IV *PREMIX 750 mg/150 ML BAG 750 MG/150 ML PIGGYBACK IV SCH (09:04)
--- NOTE | 2021-10-04 13:32 | PCM.PROG ---
Progress Note - Subjective Subjective: Patient seen at bedside, no events overnight. He is currently being treated for UTI and acute on chronic renal failure. His Blood Cx from admission and repeat growing Enterococcus facaelis as well as urine; on vanc and rocephin. Patient has been afebrile. WBC stable. No major changes from previous. Needs IV abx for now. Plan for dc in am on PO abx. Labs/imaging reviewed. Plan: Will consult pharmacy for Vancomycin, continue Rocephin. Order echo to eval for any vegetation due to Gram + Cocci bacteremia. Continue gentle hydration. Follow cultures. Patient's hgb 7.5, will transfuse 2 units PRBCs. Renal function improving. Monitor AM labs and imaging. - Past Medical Family Social History Past Med/Fam/Surg Hx: No changes since H&P Allergies: Allergies Iodinated Contrast Media Allergy (Verified 09/27/21 17:27) ketorolac [From Toradol] Allergy (Verified 09/27/21 17:27) lisinopril Allergy (Verified 09/27/21 17:27) - Review of Systems ROS: No change since H&P - Vital Signs and I&O's Vital Signs: Temperature 98.4 F Pulse Rate [Apical] 76 Pulse Rate 70 Respiratory Rate 16 Blood Pressure [Right Arm] 133/65 Blood Pressure [Left Arm] 144/77 Blood Pressure 132/72 O2 Sat by Pulse Oximetry 96 Intake and Output: Intake & Output 10/01/21 10/02/21 10/03/21 10/04/21 23:59 23:59 23:59 23:59 Intake Total 2451 / 2451 3282 / 3282 2733 / 2733 767 / 767 Output Total 2200 / 2200 3975 / 3975 1525 / 1525 450 / 450 Balance 251 / 251 -693 / -693 1208 / 1208 317 / 317 - Physical Exam Oriented: Not Oriented Eyes: Normal Ear: Normal Nose: Normal Throat: Normal Respiratory: Generalized, Diminished Cardiovascular: Normal : Other (Chronic indwelling wade cath due to BPH) Auscultation: Bowel Sounds: Normal Palpation: Normal Tenderness: Normal Skin: Decreased [place] Musculoskeletal: Shoulder, Right, Left, Back:Thoracic, Back:Lumbar, Back:Midline, Tender, Instability Mood Description: Calm, Flat Affect: Flat Speech Pattern: Unclear, Delayed - Laboratory and Diagnostics Result Diagrams: 10/04/21 05:07 10/04/21 05:07 Labs: 09/27/21 21:37 Urine,Catheterized Urine Culture - Final Enterococcus Faecalis Staphylococcus Epidermidis 09/29/21 10:14 Blood Blood Culture - Final Enterococcus Faecalis 09/29/21 09:51 Blood Blood Culture - Final Enterococcus Faecalis 09/27/21 18:50 Blood Blood Culture - Final Enterococcus Faecalis 09/27/21 18:45 Blood Blood Culture - Final Enterococcus Faecalis Laboratory WBC 7.4 X10^3/uL (3.6-10.0) 10/04/21 05:07 RBC 2.79 X10^6/uL (4.7-6.0) L 10/04/21 05:07 Hgb 8.6 g/dL (13.5-18.0) L 10/04/21 05:07 Hct 25.1 % (42.0-54.0) L 10/04/21 05:07 MCV 90.0 fL (80.0-100.0) 10/04/21 05:07 MCH 30.9 pg (27.0-34.0) 10/04/21 05:07 MCHC 34.4 g/dL (33.0-35.0) 10/04/21 05:07 RDW 16.6 % (11.6-16.5) H 10/04/21 05:07 Plt Count 79 X10^3/uL (150.0-450.0) L 10/04/21 05:07 Plt Count Comment Decreased (ADEQUATE) 09/28/21 03:51 MPV 9.5 fL (7.4-11.0) 10/04/21 05:07 Neut % (Auto) 83.5 % (42.0-75.0) H 10/04/21 05:07 Lymph % (Auto) 5.6 % (21.0-51.0) L 10/04/21 05:07 [place] % (Auto) 6.7 % (0.0-13.0) 10/04/21 05:07 Eos % (Auto) 3.7 % (0.9-2.9) H 10/04/21 05:07 Baso % (Auto) 0.5 % (0.2-1.0) 10/04/21 05:07 Neut # (Auto) 6.2 x10^3/uL (2.2-4.8) H 10/04/21 05:07 Lymph # (Auto) 0.4 X10^3/uL (1.3-2.9) L 10/04/21 05:07 [place] # (Auto) 0.5 x10^3/uL (0.3-0.8) 10/04/21 05:07 Eos # (Auto) 0.3 x10^3/uL (0.0-0.2) H 10/04/21 05:07 Baso # (Auto) 0.0 X10^3/uL (0.0-0.1) 10/04/21 05:07 Absolute Nucleated RBC 0.0 /100WBC 10/04/21 05:07 Total Counted 100 09/28/21 03:51 Neutrophils % (Manual) 90 % (39-76) H 09/28/21 03:51 Band Neutrophils % 2 % (0-10) 09/28/21 03:51 Lymphocytes % (Manual) 3 % (13-43) L 09/28/21 03:51 Monocytes % (Manual) 5 % (4-9) 09/28/21 03:51 Plt Morphology Comment Normal (NORMAL) 09/28/21 03:51 RBC Morphology Normal (NORMAL) 09/28/21 03:51 Sodium 145 mmol/L (136-145) 10/04/21 05:07 Corrected Sodium TNP 10/04/21 05:07 Potassium 3.4 mmol/L (3.5-5.1) L 10/04/21 05:07 Chloride 111 mmol/L (98-107) H 10/04/21 05:07 Carbon Dioxide 23.6 mmol/L (21-32) 10/04/21 05:07 BUN 61 mg/dL (7-18) H 10/04/21 05:07 Creatinine 2.18 mg/dL (0.70-1.30) H 10/04/21 05:07 Est GFR (MDRD) Af Amer 37 (>60) L 10/04/21 05:07 Est GFR (MDRD) Non-Af 31 (>60) L 10/04/21 05:07 Glucose 107 mg/dL (65-99) H 10/04/21 05:07 POC Glucose (mg/dL) 133 mg/dL (65-99) H 10/04/21 11:16 Lactic Acid 0.9 mmol/L (0.4-2.0) 09/27/21 18:45 Calcium 8.3 mg/dL (8.5-10.1) L 10/04/21 05:07 Corrected Calcium 10.1 mg/dL (8.5-10.1) 10/04/21 05:07 Magnesium 1.9 mg/dL (1.7-2.9) 10/04/21 05:07 Total Bilirubin 0.20 mg/dL (0.2-1.0) 10/04/21 05:07 AST 30 Units/L (15-37) 10/04/21 05:07 ALT 28 Units/L (12-78) 10/04/21 05:07 Alkaline Phosphatase 57 Units/L (46-116) 10/04/21 05:07 Creatine Kinase 156 Units/L (39-308) 09/27/21 18:45 CK-MB (CK-2) < 1.0 ng/mL (0-4.0) 09/27/21 18:45 CK/CKMB % Calc 0.6 % (<4) 09/27/21 18:45 Troponin I High Sens 52.1 ng/L (4.0-60.0) 09/27/21 18:45 Total Protein 5.0 g/dL (6.4-8.2) L 10/04/21 05:07 Albumin 1.7 g/dL (3.4-5.0) L 10/04/21 05:07 Globulin 3.3 g/dL (2.5-4.5) 10/04/21 05:07 Albumin/Globulin Ratio 0.5 Ratio (1.1-2.1) L 10/04/21 05:07 Lipase 84 Units/L (73-393) 09/27/21 18:45 Specimen Type Catherized urine 09/27/21 21:37 Urine Color [place] (YELLOW) 09/27/21 21:37 Urine Appearance Hazy (CLEAR) 09/27/21 21:37 Urine pH 6.0 (5.0 - 8.0) 09/27/21 21:37 Ur Specific [place] 1.010 (1.000-1.030) 09/27/21 21:37 Urine Protein 3+ (NEGATIVE) 09/27/21 21:37 Urine Glucose (UA) Negative (NEGATIVE) 09/27/21 21:37 Urine Ketones Negative (NEGATIVE) 09/27/21 21:37 Urine Occult Blood 5+ (NEGATIVE) 09/27/21 21:37 Urine Nitrite Negative (NEGATIVE) 09/27/21 21:37 Urine Bilirubin Negative (NEGATIVE) 09/27/21 21:37 Urine Urobilinogen Normal (NORMAL) 09/27/21 21:37 Ur Leukocyte Esterase 3+ (NEGATIVE) 09/27/21 21:37 Urine RBC Tntc /HPF (0-3) A 09/27/21 21:37 Urine WBC 10-20 /HPF (0-5) A 09/27/21 21:37 Ur Squamous Epith Cells Rare /HPF (NEGATIVE) 09/27/21 21:37 Urine Bacteria 2+ /HPF (NEGATIVE) 09/27/21 21:37 Urine Mucus Few /HPF (NEGATIVE) 09/27/21 21:37 Ur Culture Indicated? Yes/culture set up 09/27/21 21:37 Vancomycin Trough 22.0 ug/mL (15-20) H* 10/03/21 10:11 SARS-CoV-2 (PCR) Negative (NEGATIVE) 09/27/21 20:42 Influenza Type A (PCR) Negative (NEGATIVE) 09/27/21 20:42 Influenza Type B (PCR) Negative (NEGATIVE) 09/27/21 20:42 RSV (PCR) Negative (NEGATIVE) 09/27/21 20:42 Blood Type O POSITIVE 09/30/21 12:58 Antibody Screen Negative 09/30/21 12:58 Crossmatch See Detail 09/30/21 12:58 - Plan (1) Gram-positive bacteremia Status: Acute (2) Urinary tract infection Status: Acute Qualifiers: Urinary tract infection type: acute cystitis Hematuria presence: with hematuria Qualified Code(s): N30.01 - Acute cystitis with hematuria Plan: IV abx. See cultures (3) Acute on chronic renal failure Status: Acute Qualifiers: Acute renal failure type: unspecified Chronic kidney disease stage: unspecified stage Qualified Code(s): N17.9 - Acute kidney failure, unspecified; N18.9 - Chronic kidney disease, unspecified Plan: IV fluids. Monitor. 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 transplanted heart: unspecified whether [place] or transplanted heart Associated angina: unspecified whether angina present Qualified Code(s): I25.10 - Atherosclerotic heart disease of [place] coronary artery without angina pectoris Plan: home meds
[2021-10-04] MEDS: LIPITOR TAB 80 MG PO SCH (20:50)
[2021-10-04] MEDS: PROSCAR PO SCH (20:50)
[2021-10-04] MEDS: SNACK - Diabetic Appropriate PO SCH (20:51)
[2021-10-04] MEDS: MELATONIN PO SCH (21:40)
[2021-10-04] MEDS: ROCEPHIN VIAL 1 GRAM 1 G in NS 100 ML IV + SPIKE MINIBAG* 100 ML IV SCH (23:01)
[2021-10-05] MEDS: NS 1,000 ML IV 1,000 ML IV SCH (00:46)
[2021-10-05 06:22] LABS: BASOPHILS # (AUTO) 0.1 X10^3/uL (0.0-0.1); BASOPHILS % (AUTO) 0.8 % (0.2-1.0); EOSINOPHILS # (AUTO) 0.3 x10^3/uL (0.0-0.2); EOSINOPHILS % (AUTO) 3.5 % (0.9-2.9); HEMATOCRIT 26.2 % (42.0-54.0); HEMOGLOBIN 8.8 g/dL (13.5-18.0); LYMPHOCYTES # (AUTO) 0.5 X10^3/uL (1.3-2.9); LYMPHOCYTES % (AUTO) 6.5 % (21.0-51.0); MEAN CORPUSCULAR HEMOGLOBIN 30.4 pg (27.0-34.0); MEAN CORPUSCULAR HGB CONC 33.7 g/dL (33.0-35.0); MEAN CORPUSCULAR VOLUME 90.1 fL (80.0-100.0); MEAN PLATELET VOLUME 9.5 fL (7.4-11.0); MONOCYTES # (AUTO) 0.4 x10^3/uL (0.3-0.8); NEUTROPHILS % (AUTO) 84.2 % (42.0-75.0); RED CELL DISTRIBUTION WIDTH 16.8 % (11.6-16.5); WHITE BLOOD COUNT 8.3 X10^3/uL (3.6-10.0)
[2021-10-05 07:11] LABS: ALANINE AMINOTRANSFERASE 26 Units/L (12-78); ALBUMIN 1.8 g/dL (3.4-5.0); ALKALINE PHOSPHATASE 64 Units/L (46-116); ASPARTATE AMINO TRANSFERASE 29 Units/L (15-37); BLOOD UREA NITROGEN 54 mg/dL (7-18); CALCIUM 8.5 mg/dL (8.5-10.1); CHLORIDE 110 mmol/L (98-107); COR CA(FOR HYPOALB) 10.3 mg/dL (8.5-10.1); CREATININE 1.97 mg/dL (0.70-1.30); SODIUM 141 mmol/L (136-145); TOTAL PROTEIN 5.1 g/dL (6.4-8.2); eGFR NON BLACK RACES 34 (>60)
[2021-10-05] MEDS ORDERED: LEXAPRO ONE (09:49)
[2021-10-05] MEDS: VANCOMYCIN IV *PREMIX 750 mg/150 ML BAG 750 MG/150 ML PIGGYBACK IV SCH (09:51)
[2021-10-05] MEDS: HEMOCYTE-PLUS PO SCH (09:51)
[2021-10-05] MEDS: COREG TAB 25 MG PO SCH (09:51)
[2021-10-05] MEDS: K-DUR TAB 20 MEQ PO PRN (09:51)
[2021-10-05] MEDS: FLOMAX PO SCH (09:51)
[2021-10-05] MEDS: ASPIRIN EC 81 MG PO SCH (09:51)
[2021-10-05] MEDS: LEXAPRO PO SCH (09:51)
[2021-10-05] MEDS: ISOSORBIDE MONONITRATE ER 24-HR PO SCH (09:51)
[2021-10-05] MEDS: TYLENOL 325 MG TAB PO PRN (11:55)
[2021-10-05 12:04] LABS: APPEARANCE,URINE CLOUDY (CLEAR); BILIRUBIN,URINE NEGATIVE (NEGATIVE); BLOOD/HEMOGLOBIN,URINE 5+ (NEGATIVE); COLOR,URINE YELLOW (YELLOW); GLUCOSE, URINE NEGATIVE (NEGATIVE); KETONES,URINE NEGATIVE (NEGATIVE); LEUKOCYTE ESTERASE ,URINE 3+ (NEGATIVE); NITRITES,URINE NEGATIVE (NEGATIVE); PROTEIN,URINE 1+ (NEGATIVE); UROBILINOGEN,URINE NORMAL (NORMAL)
[2021-10-05 12:21] LABS: BACTERIA,URINE 1+ /HPF (NEGATIVE); RBC,URINE 30-50 /HPF (0-3); SQUAMOUS EPITHELIAL CELL,UR RARE /HPF (NEGATIVE)
[2021-10-05 13:17] VITALS: BP 110/60
[2021-10-07] MEDS ORDERED: PHARMACY COMMENT IV NR (08:00)
--- NOTE | 2021-11-04 22:51 | PCM.DCPLAN ---
Discharge Plan - Discharge Plan Hospital Course: Admit date 09/27/21 Discharge date 10/05/21 DOS: 10/05/21 Admit diagnosis(1) Urinary tract infection (2) Acute on chronic renal failure (3) Weakness generalized (4) Failure to thrive syndrome, adult (5) Hyperkalemia (6) BPH (benign prostatic hyperplasia) (7) Coronary artery disease Discharge diagnosis Same UTI, Bacteremia, Acute on chronic renal failure, Generalized weakness, Failure to thrive, Hyperkalemia, BPH, CAD. Hospital Course Patient is an 86 year old AAM who was admitted as per HPI. Patient was treated with IV abx for UTI. Patient has a chronic indwelling wade due to BPH. Patient had 4 positive blood cultures. Echo was performed which rule out valve vegetation. Patient was treated with IV vanc and Rocephin for the duration of hospital admission. Patient was discharged home on Levaquin PO x 2 weeks. Patient was discharged home on hospice. Discharge time >35 mins Disposition: 50 DISCHARGED TO HOSPICE -HOME Condition: Stable Health Concerns: Post Hospitalization: new medications and changes needed to prevent readmission or further decline. Pt educated and given instructions on all concerns. Care Plan Goals: Problem: Pain/Alteration in Comfort Goal: Improve/ Resolve Pain; Achieve Pain Tolerance Instructions: Take pain medications as prescribed. Contact your primary care provider if your pain is unrelieved or worsens. Follow up with primary care provider as directed. Plan of Treatment: Continue with present treatment and follow up plan. Pt is to keep follow up appointment as instructed and take medications as ordered. Prescriptions: New acetaminophen [Tylenol] 325 mg Tablet 650 mg PO Q8H PRNRF: 0 levofloxacin 500 mg Tablet 500 mg PO Q24H Qty: 21 RF: 0 Prescription Printed Continued aspirin 81 mg Tablet,Delayed Release (Dr/Ec) 81 mg PO DAILY atorvastatin 80 mg Tablet 80 mg PO QHS carvedilol 25 mg Tablet 25 mg PO BID escitalopram oxalate 10 mg Tablet 10 mg PO QAM ferrous sulfate [iron] 325 mg (65 mg iron) Tablet 325 mg PO QAM finasteride [Proscar] 5 MG tablet 5 mg PO QHS folic acid 400 mcg Tablet 400 mcg PO QAM hydralazine 25 mg Tablet 25 mg PO .9AM, NOON, 9PM insulin aspart U-100 [Novolog U-100 Insulin aspart] 100 unit/mL Solution 1 sliding scale dose SUBCUT USEASDIRECTD isosorbide mononitrate 120 mg Tablet Extended Release 24 Hr 120 mg PO QAM melatonin 3 mg Tablet 3 mg PO QHS tamsulosin [Flomax] 0.4 mg capsule 0.4 mg PO QAM Discontinued bumetanide 1 mg Tablet 1 mg PO QAM metolazone 2.5 mg Tablet 2.5 mg PO QAM potassium chloride 10 mEq Capsule, Extended Release 10 meq PO QAM spironolactone 25 mg Tablet 25 mg PO QAM - Follow ups/Referrals Follow ups/Referrals: KENDELL VAN [Primary Care Provider] - 10/12/21 10:00 am
== END 2021-10-05 14:25 | disposition hospice, home (50) | DRG 690 ==
LOC: EDBD → U 17:05 → ER 17:05 → U 23:55 → MED/SURG 09-28 13:30
PROVIDERS: ADMIT Family Medicine; ATTEND Internal Medicine